=== PATIENT | female | born 1945 | race Caucasian/White ===

== ENCOUNTER 2018-04-16 07:18 | Emergency (ER) | payer MEDICARE, OTHER, SELFPAY ==
[2018-04-16 07:19] VITALS: BP 170/90; PULSE 75; RESP 13; TEMP 36.7; O2SAT 98; BMI 28.0
--- NOTE | 2018-04-16 07:29 | EKG12_ITS ---
Test Reason : CP REPEAT Blood Pressure : / mmHG Vent. Rate : 062 BPM Atrial Rate : 062 BPM P-R Int : 134 ms QRS Dur : 096 ms QT Int : 428 ms P-R-T Axes : 023 021 040 degrees QTc Int : 434 ms Normal sinus rhythm Nonspecific T wave abnormality Abnormal ECG Confirmed by SATISH HOLMAN, BLAKE ([id number]), telegraph editor KISHOR MCCANN ([id number]) on 04/21/2018 5:03:29 PM Referred By: PRIYANKA Confirmed By:BLAKE COVARRUBIAS MD
--- NOTE | 2018-04-16 07:50 | RAD_ITS ---
STUDY: X-RAY CHEST REASON FOR EXAM: Female, 72 years old. Chest pain and pressure TECHNIQUE: Single AP portable view of the chest. COMPARISON: None. FINDINGS: C-spine hardware is noted The lungs are clear and expanded. There is no demonstrated pleural abnormality. Normal size heart. Normal mediastinum and samia. Normal visualized pulmonary arteries. Normal visualized aortic arch and descending thoracic aorta. Normal visualized thoracic spine. Normal visualized ribs, clavicles, and shoulders. There is no demonstrated abnormality of the visualized soft tissue structures of the upper abdomen. RAD/Chest 1 View (Portable) IMPRESSION: Normal x-ray examination of the chest. Electronically Signed: Michael Rogel DO at 8:09 EST Tel , Service support ,
[2018-04-16 07:51] VITALS: BP 147/60; PULSE 69; RESP 18; O2SAT 100
[2018-04-16 08:01] LABS: Absolute Lymphocyte Count 2.44 X10^3/ul (0.83-4.51); Absolute Neutrophil Count 3.2 X10^3/uL (2.0-7.7); Basophil# 0.08 X10^3/uL; Basophil% 1.2 % (0-1); Eosinophil# 0.17 X10^3/uL; Eosinophils% 2.6 % (0-5); Hematocrit 38.2 % (37-47); Hemoglobin 12.2 g/dl (12.0-15.0); Lymphocyte # 2.44 X10^3/ul (4.0); Lymphocyte % 37.3 % (19-41); Mean Corp Hgb Conc 31.9 g/gl (32-36); Mean Corpuscular Hgb 28.8 pg (27.0-32.0); Mean Corpuscular Volume 90.3 fL (81-99); Monocyte# 0.61 X10^3/uL; Monocyte% 9.3 % (0-10); Neutrophil # 3.24 X10^3/uL (2.7-7.7); Neutrophil % 49.4 % (47-70); Platelet Count 318 K/mm3 (150-450); RBC Distribution Width CV 13.8 % (11.6-14.6); RBC Distribution Width SD 44.9 fl (35.1-43.9); Red Blood Count 4.23 M/mm3 (4.2-5.4); White Blood Count 6.6 K/mm3 (4.4-11.0)
[2018-04-16 08:03] LABS: POSITIVE COUNT NO; POSITIVE DIFFERENTIAL NO; POSITIVE MORPHOLOGY NO
[2018-04-16 08:12] LABS: Anion Gap 9 (5-15); BUN 17 mg/dL (7-18); BUN/Creat Ratio 17.5 RATIO (10-20); Calcium,Total 8.7 mg/dL (8.5-10.1); Chloride 108 mmol/L (98-107); Creatinine, Serum 0.97 mg/dL (0.55-1.02); EST Glomerular Filtration Rate 60 mL/min (>60); Est Glom Filt Rate - Afr Amer 73 mL/min (>60); Estimated Creatinine Clearance 50.98 ml/min; Glucose 81 mg/dL (74-106); Sodium Level 142 mmol/L (136-145)
--- NOTE | 2018-04-16 08:39 | ED.VISSUMM ---
- ER Visit Summary Date of Service: 04/16/18 Chief Complaint: Chest pain History of Present Illness: The patient is a 72 F who is arriving by EMS. Patient states that she got up this morning was making coffee and went to sit down in her chair. When she sat down she developed a sharp stabbing pain just underneath her left armpit radiating posteriorly into her back. She describes it as sharp and stabbing. She states it lasted a minute and her states that it lasted several minutes. states that she was very pale and she felt nauseous. He was concerned she may pass out and called the ambulance. Patient states she has never had this discomfort before. The patient denies any known cardiac history. She had a stress test in 2012 that was negative. Patient has a history of GERD restless leg and hypothyroidism. She has not had any recent surgeries. No recent immobilization or long trips. She denies any known cancer or hormonal supplementation. The patient states that she is asymptomatic at the time of exam. Patient received 324 mg of aspirin by EMS. Physical Examination: Afebrile vital signs are stable Gen: Well-nourished well-developed Head: Normocephalic atraumatic Eyes: Perrl EOMI ENT: TMs clear no rhinorrhea moist mucous membranes Neck: Supple no lymphadenopathy no JVD nontender CVS: Regular rate rhythm no murmurs normal S1-S2 Respiratory: No distress clear to auscultation bilaterally chest nontender Abdomen: Soft nontender nondistended normal bowel sounds no masses Back: Nontender Extremity: Nontender no edema Skin: Normal color no rash Neuro: alert orientated ?3 CN II-XII intact normal strength sensation reflexes gait cerebellar Psych: Normal affect normal mood Test Results: Prehospital EKG shows a sinus rhythm and this is compared to initial EKG in the emergency department shows a normal sinus rhythm at a rate of 74 with no ectopy. Initial troponin is negative. Delta troponin negative. D-dimer within the normal limits. Chest x-ray shows no acute findings. Emergency Department Course and Treatment: Repeat examination the patient states the pain has returned and is still sharp and stabbing. It is not worse with deep breath. She is unsure if it is worse with movement. Patient received a dose of Toradol. Delta troponin was negative. Patient's been resting more comfortably. Patient will be discharged home. Return if worsening or concerns. Impression: 1. Chest pain Date of Service: 04/16/18 This note was generated with [employer] dictation software. It may contain incorrect words, spelling, and punctuation that were not noted in review of the chart prior to signing ED Disposition - Plan for ED Patient: Disposition: Home or Assisted Living Instructions: ED Chest Pain NonCardiac Referrals: Carlos Maxwell MD [Primary Care Provider] - 3-5 Days if not improving
[2018-04-16] MEDS: Ketorolac 30 MG/ML Syringe IV (08:47)
[2018-04-16 08:59] VITALS: BP 148/63; PULSE 67; RESP 17; O2SAT 96
[2018-04-16 09:39] LABS: D-Dimer Quantitative (DVT/PE) 0.35 FEU/ug/m (0.27-0.49)
--- NOTE | 2018-04-16 10:30 | EKG12_ITS ---
Test Reason : CP Blood Pressure : / mmHG Vent. Rate : 074 BPM Atrial Rate : 074 BPM P-R Int : 168 ms QRS Dur : 094 ms QT Int : 390 ms P-R-T Axes : 058 019 035 degrees QTc Int : 432 ms Normal sinus rhythm Normal ECG Confirmed by BLAKE COVARRUBIAS MD ([id number]), primer expeditor and drier KISHOR MCCANN ([id number]) on 04/21/2018 5:03:44 PM Referred By: Confirmed By:BLAKE COVARRUBIAS MD
[2018-04-16 11:03] VITALS: BP 135/77; PULSE 63; RESP 17; O2SAT 95
[2018-04-16 11:47] VITALS: BP 122/67; PULSE 68; RESP 16; O2SAT 98
== END 2018-04-16 11:48 | disposition home or self-care (01) ==
PROVIDERS: Emergency Provider Emergency Medicine; Family Provider Family Medicine; PCP Family Medicine
DX: R07.9 Chest pain, unspecified (principal); R11.0 Nausea; E03.9 Hypothyroidism, unspecified; G25.81 Restless legs syndrome; K21.9 Gastro-esophageal reflux disease without esophagitis; Z79.899 Other long term (current) drug therapy
CPT/HCPCS: 36415; 71045; 80048; 84484; 85025; 85379; 93005; 96374; 99285; A4216

== ENCOUNTER → 2020-03-04 14:56 | Outpatient (CLI) | payer MEDICARE, OTHER, SELFPAY ==
--- NOTE | 2020-03-04 15:02 | VDLE_ITS ---
Reason For Study: Pain Procedure LEFT This is a venous duplex using B-mode, color GSV is normal. flow and spectral Doppler. CFV is compressible, spontaneous, phasic, Exam performed in department. competent, and demonstrates normal A preliminary report was called and/or faxed augmentation. to [facility]. FV is compressible, spontaneous, phasic, competent and demonstrates normal augmentation. POP V is compressible, spontaneous, phasic, competent and demonstrates normal augmentation. T/P Trunk is compressible. PTV is compressible. LT PerV is compressible. Interpretation Summary Deep veins of the left lower extremity are patent and compressible segmentally. There is no evidence of left lower extremity deep vein thrombosis. Valvular competence appears intact within the proximal deep venous system on the left . The left great saphenous vein appears patent and compressible segmentally. Ordering Physician: Urban Kruger Referring Physician: MD Hans Carlos Performed By: Saba Hart RVT
== END ==
PROVIDERS: PCP Family Medicine; Referring Provider Nurse Practitioner Family; Visit Provider Nurse Practitioner Family
DX: M79.605 Pain in left leg (principal)
CPT/HCPCS: 93971

== ENCOUNTER → 2020-03-30 08:58 | Outpatient (CLI) | payer MEDICARE, OTHER, SELFPAY ==
--- NOTE | 2020-03-30 09:15 | RAD_ITS ---
STUDY: AIR CONTRAST UPPER GI SERIES REASON FOR EXAM: Female, 74 years old. COUGH, GERD- FOR YEARS -- 40 FLUORO SEC, 22.85mGy, 21 FLUORO IMAGES FLUOROSCOPY TIME (if supplied): (0:40) minutes/seconds TECHNIQUE: SINGLE CONTRAST AND AIR CONTRAST FLUOROSCOPIC IMAGES. COMPARISON: None. FINDINGS: There is evidence of anterior fusion at the C6-C7 level. The cervical esophagus demonstrates normal motility without aspiration. There is no stricture or extrinsic mass effect. No intraluminal polypoid mass is identified. The thoracic esophagus distends well without stricture or mucosal fold thickening. No mucosal ulcerations are identified. There is no extrinsic mass effect. There are no diverticula. There is evidence of a small sliding hiatal hernia with gastroesophageal reflux. The stomach distends well without mucosal fold thickening or mucosal ulceration. There is no intraluminal mass. The duodenal bulb is freely distensible without deformity or ulceration. The duodenal sweep is normal in position and caliber. RAD/Upper GI w/BA Swallow IMPRESSION: There is a small sliding hiatal hernia with gastroesophageal reflux. Electronically Signed: Wesley Lloyd MD at 12:45 EST , Service support ,
== END ==
PROVIDERS: PCP Family Medicine; Referring Provider Internal Medicine Pulmonary Disease; Visit Provider Internal Medicine Pulmonary Disease
DX: R05 Cough (principal); K21.9 Gastro-esophageal reflux disease without esophagitis
CPT/HCPCS: 74246

== ENCOUNTER → 2020-08-23 17:11 | Outpatient (CLI) | payer MEDICARE, OTHER, SELFPAY ==
--- NOTE | 2020-08-23 17:00 | PET_ITS ---
EXAMINATION: FDG PET-CT INDICATIONS: A 74-year-old female with a history of chronic lymphocytic leukemia presenting for restaging examination. COMPARISON EXAMINATION: CT of the chest, abdomen, and pelvis reports dated 08/02/20. INDEX LESION SIZE SUV LUGANO SCORE INTERPRETATION Bilateral axilla 1.4 max 2 Quantitative criteria for viable neoplasm are not fulfilled. TECHNIQUE: Following the intravenous administration of 13.80 mCi of F-18 deoxyglucose via the left wrist, multiplanar image acquisitions of the head, neck, chest, abdomen and pelvis to level of mid-thigh, lower extremities obtained at one hour post radiopharmaceutical administration contemporaneously interpreted with the current CT of the head, neck, chest, abdomen and pelvis to level of mid-thigh, lower extremities dated 08/23/[address] of the chest, abdomen, and pelvis reports dated 08/02/20 reveal: SERUM GLUCOSE LEVEL: 87 mg/dl. HEIGHT: 68 inches. WEIGHT: 159 lbs. FINDINGS: 1. Increased FDG distribution is defined in the bilateral axilla and retropectoral lymph node distributions generating a calculated maximum standard uptake value of 1.4. The [place] Deauville score is 2. The majority of the corresponding soft tissue densities demonstrate components of fatty hilus. 2. Normal physiologic distribution of the radiopharmaceutical is apparent in the hepatic (3.4) and splenic parenchyma, both renal units, bladder and visualized intestinal tract. The visualized portion of the cerebral cortex demonstrate symmetric and preserved glucose metabolism. Diffuse intestinal tract activity is noted throughout all four quadrants of the abdominal-pelvic retroperitoneum and mesentery consistent with normal physiologic distribution of the radiopharmaceutical. Facilitated radiopharmaceutical concentration is visualized in the pharyngeal mucosal space right and left of midline which appears associated with the pharyngeal constrictor musculature most consistent with physiologic tracer uptake. Pertinent CT findings are as follows. CHEST: There is atherosclerotic calcification defined in the thoracic aorta without evidence of dilatation-aneurysm formation. Bilateral axillary and retropectoral lymph nodes demonstrate mild nonquantitative significant increased FDG uptake previously described. There are no parenchymal densities-nodules demonstrated in the right and left hemithorax with discernable increased tracer uptake. ABDOMEN AND PELVIS: Atherosclerotic calcification is defined in the abdominal aorta without evidence of dilatation, aneurysm formation. Pelvic arterial calcification is observed. Colonic diverticulosis is encountered without evidence of diverticulitis. Right and left inguinal soft tissue densities demonstrate no evidence of definable enhanced FDG uptake. A uterine pessary device is defined. SKELETAL: Orthopedic hardware placement is noted in the left lower lumbar spine-upper sacrum and lower cervical spine commensurate with spinal fusion operative intervention. PET/PET/CT Tumor Base -Thigh Init IMPRESSION: 1. NEGATIVE EXAMINATION. There is no definitive degree of quantitative scintigraphic evidence of viable neoplasm. 2. Enhanced tracer uptake manifest in the right and left axillary regions do not fulfill quantitative criteria for viable neoplasm. (Aubrie et al, Journal of Clinical Oncology 32:3059, 2014). Electronic Signature Tomy Castillo D.O. Accurate Quantification of SUVs for this report are calculated using the exclusive [employer] Technology. ([place].S. Patent No. [id number] [id number]). Standardization and correction of the FDG SUV metric via ACCUQUAN technology allow for vendor non-specific objective quantitative examination comparison and optimization of the sensitivity and specificity of the FDG PET-CT examination. Electronically Signed: Tomy Castillo DO at 22:29 EDT Tel , Service support ,
== END ==
PROVIDERS: PCP Nurse Practitioner Family; Referring Provider Internal Medicine Hematology & Oncology; Visit Provider Internal Medicine Hematology & Oncology
DX: C91.90 Lymphoid leukemia, unspecified not having achieved remission (principal)
CPT/HCPCS: 78815; A9552

== ENCOUNTER 2021-05-16 12:31 | Emergency (ER) | payer MEDICARE, OTHER, SELFPAY ==
[2021-05-16 12:32] VITALS: BP 207/67; PULSE 58; RESP 16; TEMP 36.6; O2SAT 97; BMI 34.0
--- NOTE | 2021-05-16 12:44 | CT_ITS ---
STUDY: CTA CHEST REASON FOR EXAM: Female, 75 years old. Dyspnea, PE. CLL TREATMENT CURRENTLY RADIATION DOSAGE (If Supplied By Facility): CTDIvol = ( 16.14 ) mGy, DLP = ( 476.35 ) mGycm TECHNIQUE: The examination was performed with the intravenous administration of IV 100mL Isovue-370. Post-processing of the angiographic images was performed, with multiplanar reformation and 3D reconstruction. Individualized dose optimization techniques were used for this CT. COMPARISON: Comparison is made with prior study dated 03/07/2012. FINDINGS: Small bilateral axillary lymph nodes. Normal enhancement of the main pulmonary artery and right and left pulmonary arteries. Normal enhancement of the bilateral peripheral pulmonary arteries. There is no demonstrated pulmonary embolism. There is atherosclerotic calcification of the aortic arch with tortuosity. There is no demonstrated aortic dissection. Normal heart and pericardium. Stable 3.1 cm x 3.2 cm rounded fluid collection in the right cardio phrenic angle. This most likely represents a right pericardial cyst. Normal mediastinum. Normal hilar regions. Normal visualized trachea and bronchi. The lungs are well expanded. Normal pulmonary parenchyma. Normal pleura. Normal chest wall structures. There are degenerative changes of thoracic spine. Small sliding title hernia. CT/CTA Chest W/WO Contrast IMPRESSION: No evidence of pulmonary embolism. Stable right pericardial cyst. Electronically Signed: Wesley Lloyd MD at 14:35 EDT ,
--- NOTE | 2021-05-16 12:45 | EKG12_ITS ---
Test Reason : SOB Blood Pressure : / mmHG Vent. Rate : 051 BPM Atrial Rate : 051 BPM P-R Int : 204 ms QRS Dur : 100 ms QT Int : 454 ms P-R-T Axes : 054 023 051 degrees QTc Int : 418 ms Sinus bradycardia Otherwise normal ECG Confirmed by LILIAN HOLMAN, KURTIS ([id number]), writer editor KERRY MARIN ([id number]) on 05/18/2021 9:57:21 AM Referred By: RU Confirmed By:KURTIS QUINTANA MD
--- NOTE | 2021-05-16 12:47 | EDS_ITS ---
HPI History of Present Illness Chief Complaint: Shortness of Breath Detail of Chief Complaint: Shortness of breath for about 2 months Informant: patient Narrative Narrative: Patient presents to the emergency department with complaint of dysp farshad for about 2 months. I received a call from her oncologist office stating they are concerned about possibility of pulmonary embolism. Patient denies any chest pain. She does describe some exertional dyspnea. She has no history of PE or DVT. Patient currently being treated for CLL with daily oral chemo Imbruvica. Patient denies fever. She does have a cough but mostly at night. Cough is nonproductive. She denies hemoptysis. [facility] Medical History (Updated 05/16/21 @ 14:[address] Lori Rae, DO) Cancer Depression Former smoker GERD (gastroesophageal reflux disease) Hypertension Hypothyroidism Home Medications Pesary 1 ea TOPICAL PRN PRN 01/09/17 [History Last Taken Unknown] levothyroxine 112 mcg PO DAILY 01/09/17 [History Last Taken 01/21/17 08:00 1] losartan 100 mg PO DAILY 01/09/17 [History Last Taken 01/21/17 08:00 1] pantoprazole 40 mg PO BID 01/09/17 [History Last Taken 01/21/17 08:00 1] acetaminophen 1,000 mg PO Q8 PRN 04/16/18 [History Last Taken Unknown] amlodipine 5 mg PO DAILY 04/16/18 [History Last Taken Unknown] Allergy/AdvReac Type Severity Reaction Status Date / Time amoxicillin Allergy Rash Verified 05/16/21 12:33 Penicillins [PCN] Allergy Rash Verified 05/16/21 12:33 Sulfa (Sulfonamide Allergy Rash Verified 05/16/21 12:33 Antibiotics) tramadol [From Ultram] Allergy Other Verified 05/16/21 13:20 BANDAIDS AdvReac Rash Uncoded 05/16/21 12:33 Surgical History (Updated 05/16/21 @ 13:17 by Mandi Car) H/O: hysterectomy History of total replacement of both hip joints Previous back surgery Social History Smoking Status: Former smoker ROS ROS ED Constitutional Constitutional ED: Reports systems reviewed and no addt'l complaints, except as documented; Denies body ache(s), change in weight or chills Eyes Eyes: Denies acute decrease in peripheral vision, change in vision, double vision or loss of vision ENT ENT ED: Reports none; Denies ear pain, lip swelling, loss taste/smell, neck pain, otalgia or sore throat Cardiovascular Cardiovascular: Reports none; Denies abdominal pain, chest pain with activity, leg edema, lightheadedness, palpitations, rapid heart rate or syncope Respiratory/Chest Respiratory/Chest: Reports none, cough and dyspnea; Denies change in mental status, dry cough, hemoptysis, shortness of breath at rest or shortness of breath with exertion Gastrointestinal Gastrointestinal: Reports none; Denies abdominal pain, change in stool character, diarrhea, hematemesis, hematochezia, melena, rectal bleeding or vomiting Genitourinary Genitourinary ED: Reports none; Denies abdominal discomfort, anuria, dysuria, genital pain or polyuria Musculoskeletal Musculoskeletal: Reports none; Denies arthralgias, back pain, difficulty walking, extremity pain, muscle weakness or myalgias Integumentary Reports none; Denies abscess or rash Neurologic Neurologic: Reports none; Denies abnormal gait, confusion, focal weakness, frequent falls, headache(s), loss of vision, numbness, paresthesias, radicular pain, vertigo or weakness Psychiatric Psychiatric: Reports systems reviewed and no addt'l complaints, except as documented and none; Denies behavioral changes, confusion, difficulty concentrating, hallucinations, suicidal ideation, tactile hallucinations or visual hallucinations Endocrine Endocrinology: Denies none, cold intolerance, excessive sweating, fatigue or heat intolerance Hematologic/Lymphatic Hematologic/Lymphatic: Reports none; Denies anemia, easy bleeding or easy bruising Allergic/Immunologic Allergic/Immunologic ED: Denies as per HPI, none, lip swelling, mouth swelling, throat swelling, tongue swelling or hives EXAM Physical Exam Const Vital Signs: 05/16/21 12:32 05/16/21 13:19 05/16/21 13:23 Temperature 97.8 F Temperature Source Temporal Pulse Rate 58 L 49 L Respiratory Rate 16 96 H Respiratory Effort Normal Non-Labored Respiratory Depth Normal Respiratory Pattern Normal Blood Pressure 207/67 H 188/69 H Blood Pressure Mean 113 108 Pulse Ox 97 12 Oxygen Delivery Method Room Air Room Air Room Air Positive well nourished and well developed General Appearance ED: well developed and NAD HEENT Reports TM's clear and moist mucous membranes normocephalic and atraumatic; Negative for trauma or tenderness Tympanic Membrane ED: Yes TM's clear Eyes PERRL and EOMs intact bilaterally General Eye ED: Negative for pale conjunctiva or scleral icterus Neck no lymphadenopathy, supple and no JVD General: Negative for tenderness Chest Wall inspection of chest normal and palpation of chest normal Chest: Negative for tenderness Resp normal respiratory effort and clear to auscultation bilaterally Effort and Inspection: Negative for respiratory distress or pain with movement Auscultation: Negative for rhonchi, wheezes or diminished lung sounds Cardio regular rate, regular rhythm, S1 normal heart sound, S2 normal heart sound and no murmurs Peripheral Pulses: pulses 2+ throughout GI normal to inspection, nondistended, normoactive bowel sounds, soft to palpation, non-tender, non-distended and no masses Back/Spine no CVA tenderness and no thoracic nor lumbar tenderness Extremity normal to inspection General Extremety ED: Negative for edema General Extremity: Negative for edema Neuro oriented x3, CN's II-XII intact bilaterally, no sensory deficits noted and gait normal Sensorium / Orientation: awake, alert, oriented to person, oriented to place and oriented to time Motor Exam: strength 5/5 throughout and strength abnormal Psych mental status grossly normal Skin no rashes or lesions noted and no wounds MDM MDM MDM Narrative Medical decision making narrative: IV line established on arrival. Lab work-up was unremarkable. CTA chest was negative for PE. Etiology of her dyspnea is unclear. Patient has not had any medication changes. Her bradycardia is not new and she tells me it has been like that for years. I do not feel her bradycardia is responsible for her dyspnea. Patient advised to follow-up with her primary care physician within next 3 to 5 days. She is to return if increasing shortness of breath, chest pain, or if condition should worsen anyway. Lab Data Attestation: I reviewed the patient's lab results. Labs: Laboratory Results - last 24 hr 05/16/21 05/16/21 05/16/21 13:04 13:04 13:04 WBC RBC Hgb Hct MCV MCH MCHC RDW Std Deviation RDW Coeff of Vazquez Plt Count MPV Immature Gran % (Auto) Neut % (Auto) Lymph % (Auto) [place] % (Auto) Eos % (Auto) Baso % (Auto) Absolute Neuts (auto) Absolute Lymphs (auto) Nucleated RBC % Sodium Cancelled Potassium Cancelled Chloride Cancelled Carbon Dioxide Cancelled Anion Gap Cancelled BUN Cancelled Creatinine Cancelled Estim Creat Clear Calc Cancelled Est GFR (MDRD) Af Amer Cancelled Est GFR (MDRD) Non-Af Cancelled BUN/Creatinine Ratio Cancelled Glucose Cancelled Calcium Cancelled Troponin I High Sens Cancelled B-Natriuretic Peptide 54.2 05/16/21 05/16/21 13:22 13:36 WBC 7.6 RBC 2.99 L Hgb 9.6 L Hct 28.8 L MCV 96.3 MCH 32.1 H MCHC 33.3 RDW Std Deviation 50.3 H RDW Coeff of Vazquez 14.4 Plt Count 255 MPV 11.0 Immature Gran % (Auto) 0.900 Neut % (Auto) 58.1 Lymph % (Auto) 24.8 [place] % (Auto) 13.3 H Eos % (Auto) 1.6 Baso % (Auto) 1.3 H Absolute Neuts (auto) 4.4 Absolute Lymphs (auto) 1.88 Nucleated RBC % 0 Sodium 140 Potassium 4.2 Chloride 110 H Carbon Dioxide 27.0 Anion Gap 3 L BUN 14 Creatinine 0.99 Estim Creat Clear Calc 35.27 Est GFR (MDRD) Af Amer 71 Est GFR (MDRD) Non-Af 58 L BUN/Creatinine Ratio 14.2 Glucose 72 L Calcium 7.8 L Troponin I High Sens 5 B-Natriuretic Peptide Radiography Diagnostic Testing: Clinical Impression(s) from Imaging Studies Chest CTA 05/16/21 12:44 IMPRESSION: No evidence of pulmonary embolism. Stable right pericardial cyst. Electronically Signed: Wesley Lloyd MD at 14:35 EDT , EKG Initial EKG: Attestation: I personally reviewed and interpreted this EKG as follows: Comments: Sinus rhythm with a ventricular rate of 51 bpm with no acute ST segment changes Discharge Plan Triage Chief Complaint: Shortness of Breath ED Provider: Lori Rae Dx/Rx/DC Orders Clinical Impression: Acute dyspnea Instructions: ED Dyspnea Prescriptions: No Action losartan 50 MG tablet 100 mg PO DAILY RF: 0 levothyroxine 100 MCG tablet 112 mcg PO DAILY RF: 0 pantoprazole 40 MG tablet 40 mg PO BID RF: 0 Pesary 1 ea topical PRN PRN (Reason: PER PATIENT) RF: 0 amlodipine 5 MG tablet 5 mg PO DAILY RF: 0 acetaminophen 500 MG tablet 1,000 mg PO Q8 PRN (Reason: Pain) RF: 0 Primary Care Provider: Urban Kruger NP Referrals: Alejo Salas DO [STAFF PHYSICIAN] - 3-5 Days Urban Kruger NP, QUANTITY SURVEYOR-C [Primary Care Provider] - Disposition Disposition: Home, Self Care
[2021-05-16] MEDS: 0.9% Normal Saline 1,000 ML 150 ML IV (13:11)
[2021-05-16 13:19] VITALS: BP 188/69; PULSE 49; RESP 96; O2SAT 12
[2021-05-16 13:23] VITALS: O2SAT 96
[2021-05-16 13:30] LABS: BNP,B-Type NATRIURETIC PEPTIDE 54.2 pg/mL (0-100)
[2021-05-16 13:38] LABS: Absolute Lymphocyte Count 1.88 X10^3/uL (0.83-4.51); Absolute Neutrophil Count 4.4 X10^3/uL (2.0-7.7); Basophil% 1.3 % (0-1); Eosinophil# 0.12 X10^3/uL; Eosinophils% 1.6 % (0-5); Hematocrit 28.8 % (37-47); Hemoglobin 9.6 g/dL (12.0-15.0); Lymphocyte # 1.88 X10^3/ul (0.83-4.51); Lymphocyte % 24.8 % (19-41); Mean Corp Hgb Conc 33.3 g/dL (32-36); Mean Corpuscular Hgb 32.1 pg (27.0-32.0); Mean Corpuscular Volume 96.3 fL (81-99); Monocyte# 1.01 X10^3/uL; Monocyte% 13.3 % (0-10); NRBC Flagged by Analyzer 0 % (0-5); Neutrophil % 58.1 % (47-70); Platelet Count 255 K/mm3 (150-450); RBC Distribution Width CV 14.4 % (11.6-14.6); RBC Distribution Width SD 50.3 fl (35.1-43.9); Red Blood Count 2.99 M/mm3 (4.2-5.4); White Blood Count 7.6 K/mm3 (4.4-11.0)
[2021-05-16 14:05] LABS: Anion Gap 3 (5-15); BUN 14 mg/dL (7-18); BUN/Creat Ratio 14.2 RATIO (10-20); Calcium,Total 7.8 mg/dL (8.5-10.1); Chloride 110 mmol/L (98-107); Creatinine, Serum 0.99 mg/dL (0.55-1.02); EST Glomerular Filtration Rate 58 mL/min (>60); Est Glom Filt Rate - Afr Amer 71 mL/min (>60); Estimated Creatinine Clearance 35.27 ml/min; Glucose 72 mg/dL (74-106); Potassium 4.2 mmol/L (3.5-5.1); Sodium Level 140 mmol/L (136-145); Troponin-I HS 5 pg/mL (3.0-54.0)
[2021-05-16 14:54] VITALS: PULSE 53; RESP 16; O2SAT 99
--- NOTE | 2021-05-17 12:43 | CM.ED ---
ER RNAMINATA DC F/u Call: ED visit 05.16.21 for SOB- sent by Onc provider(Tx for CLL on oral Chemo) Called listed home number on demographics, patient answered and this functional tester typewriters introduced self and role. Patient states that she is doing okay. Has a f/u appointment with her doctor in one month. Does not have a pulse ox at home and discussed places can obtain one if she wants to check oxygenation levels if feeling SOB. Also discussed returning to hospital for any worsening of SOB. No further issues or concerns voiced at this time. Rupal Ledesma RNCM
== END 2021-05-16 14:54 | disposition home or self-care (01) ==
PROVIDERS: Emergency Provider Emergency Medicine; PCP Nurse Practitioner Family; Visit Provider Emergency Medicine
DX: R06.00 Dyspnea, unspecified (principal); C91.10 Chronic lymphocytic leukemia of B-cell type not having achieved remission; R00.1 Bradycardia, unspecified; I10 Essential (primary) hypertension; E03.9 Hypothyroidism, unspecified; K21.9 Gastro-esophageal reflux disease without esophagitis; Z79.890 Hormone replacement therapy; Z79.899 Other long term (current) drug therapy; Z87.891 Personal history of nicotine dependence; Z96.643 Presence of artificial hip joint, bilateral
CPT/HCPCS: 71275; 80048; 83880; 84484; 85025; 93005; 96360; 96361; 99283; J7030; Q9967; A4216

== ENCOUNTER → 2021-07-05 | Outpatient (CLI) | payer MEDICARE, OTHER, SELFPAY ==
[2021-07-05 17:14] LABS: Thyroid Stim Hormone (TSH) 2.93 uIU/mL (0.358-3.74)
== END | disposition home or self-care (01) ==
LOC: LAB 15:59
PROVIDERS: PCP Nurse Practitioner Family; Visit Provider Internal Medicine Cardiovascular Disease
DX: E03.9 Hypothyroidism, unspecified (principal)
CPT/HCPCS: 36415; 84443

== ENCOUNTER → 2021-07-14 | Outpatient (CLI) | payer MEDICARE, OTHER, SELFPAY | END | disposition home or self-care (01) | LOC: PSN 09:28 | PROVIDERS: PCP Nurse Practitioner Family; Visit Provider Internal Medicine Cardiovascular Disease | DX: R00.1 Bradycardia, unspecified (principal); I10 Essential (primary) hypertension | CPT/HCPCS: 93225; 93226 ==

== ENCOUNTER → 2021-07-25 | Outpatient (CLI) | payer MEDICARE, OTHER, SELFPAY ==
--- NOTE | 2021-07-25 13:58 | ECHOD_ITS ---
Reason For Study: ARRYTHMIA Procedure This was a 2D Doppler, Color Flow transthoracic echocardiogram. Myocardial strain analysis was performed in this exam to aid in the assessment of cardiac function. Exam performed in department. Left Ventricle Normal LV size. Left ventricular systolic function is normal. The estimated ejection fraction is 60 %. Stage 1 diastolic dysfunction. No regional wall motion abnormalities noted. Right Ventricle Normal RV size. Normal systolic function. Atria Normal left atrium. Normal right atrium. Mitral Valve Normal mitral valve. Tricuspid Valve Normal tricuspid valve. Mild to moderate (1-2+) tricuspid valve insufficiency. Pulmonary artery systolic pressure is 30 mmHg. Aortic Valve Trisinus/trileaflet aortic valve. Mild focal aortic valve calcification. Mild (1+) eccentric aortic valve insufficiency. Pulmonic Valve Normal pulmonic valve. Great Vessels Normal aortic root. The pulmonary artery is normal size. Normal inferior vena cava. Pericardium/Pleural No pericardial effusion. Medication 22 gauge I.V. with prn adaptor inserted into left arm. Performed a rapid injection of agitated mix of 9 cc saline and 1cc air to assess for atrial septal defect. MMode/2D Measurements & Calculations LVIDd: 4.3 cm IVSd: 0.88 cm Ao root diam: 2.4 cm LVIDs: 2.5 cm LVPWd: 1.1 cm RVDd: 2.4 cm FS: 42.6 % LAV(MOD-bp): 70.4 ml LVAd ap4: 25.9 cm2 SV(MOD-sp4): 45.5 ml LAV(MOD-bp) Indexed: 39.9 ml/m2 LVLd ap4: 7.4 cm LAV(MOD-sp2): 70.3 ml EDV(MOD-sp4): 72.7 ml LAV(MOD-sp4): 63.0 ml EDV(sp4-el): 76.7 ml LVAs ap4: 13.8 cm2 LVLs ap4: 6.2 cm ESV(MOD-sp4): 27.1 ml ESV(sp4-el): 26.1 ml EF(MOD-sp4): 62.7 % EF(sp4-el): 66.0 % SV(sp4-el): 50.6 ml LA A4 area: 21.8 cm2 LA dimension(2D): 3.9 cm RA A4 area: 15.8 cm2 Doppler Measurements & Calculations MV E max ricardo: 101.4 cm/sec Lat Peak E' Ricardo: 9.6 cm/sec Med Peak E' Ricardo: 6.7 cm/sec MV A max ricardo: 122.9 cm/sec E/E' lat: 10.6 E/E' med: 15.1 MV E/A: 0.82 Ao V2 max: 221.7 cm/sec AI max rciardo: 380.0 cm/sec LV V1 max: 146.1 cm/sec Ao max P.7 mmHg AI max P.8 mmHg LV V1 max P.5 mmHg AI dec slope: 198.0 cm/sec2 AI P1/2t: 562.0 msec MR max ricardo: 563.0 cm/sec PA V2 max: 139.6 cm/sec TR max ricardo: 258.6 cm/sec MR max P.8 mmHg TR max P.8 mmHg MR mean ricardo: 445.3 cm/sec MR mean P.9 mmHg MR VTI: 202.6 cm ECHO/Echo Complete Interpretation Summary Normal LV size. Left ventricular systolic function is normal. The estimated ejection fraction is 60 %. Stage 1 diastolic dysfunction. Mild (1+) eccentric aortic valve insufficiency. Pulmonary artery systolic pressure is 30 mmHg. The global longitudinal strain is normal. The global longitudinal strain = -20. 5 % (normal). Ordering Physician: Tejas Tolliver Performed By: Kasey Echeverria RCS
== END | disposition home or self-care (01) ==
LOC: CVS 13:58
PROVIDERS: PCP Nurse Practitioner Family; Visit Provider Internal Medicine Cardiovascular Disease
DX: R00.1 Bradycardia, unspecified (principal); R00.8 Other abnormalities of heart beat
CPT/HCPCS: 93306

== ENCOUNTER 2021-08-31 15:03 | Observation (INO) | payer MEDICARE, OTHER, SELFPAY ==
[2021-08-31] VITALS (8 sets, daily range): BP systolic 133–154; BP diastolic 46–74; PULSE 58–66; RESP 16–18; TEMP 36.6–36.9; O2SAT 95–98; BMI 35.5; BMI 32.8
--- NOTE | 2021-08-31 15:20 | EKG12_ITS ---
Test Reason : Blood Pressure : / mmHG Vent. Rate : 062 BPM Atrial Rate : 062 BPM P-R Int : 140 ms QRS Dur : 090 ms QT Int : 414 ms P-R-T Axes : 027 018 062 degrees QTc Int : 420 ms Normal sinus rhythm Normal ECG Confirmed by LILIAN HOLMAN, KURTIS ([id number]), medical transcription editor KERRY MARIN ([id number]) on 09/02/2021 9:19:01 AM Referred By: Confirmed By:KURTIS QUINTANA MD
--- NOTE | 2021-08-31 15:21 | EDS_ITS ---
HPI History of Present Illness Chief Complaint: Chest Pain Detail of Chief Complaint: Chest pain x2 Informant: patient, family and EMS Onset/Context/Timing Onset: Today and Hours Activity at onset: sudden and rest Timing: Intermittent (First episode lasted 5 minutes second episode estimate of 15) Quality: Positive for Pressure and Sharp Location: Substernal Current Severity: Gone Maximum Severity: Moderate Worsened By: - (Patient was on the phone when the first episode occurred and at rest second) Relieved By: NTG (Second episode was alleviated after second nitro) Associated Symptoms: Positive for Dyspnea and - (First episode radiated to the jaw on the right side); Negative for Nausea, Vomiting, Diaphoresis, Cough, Fever, Lightheadedness, Acid Reflux or Palpitations Narrative Narrative: Patient is a 75-year-old woman who was referred to Dr. Tolliver for shortness of breath and family states she had a negative work-up. They are uncertain whether she had a stress test or not. Patient had an episode of sharp pressure-like sensation mid chest while talking to a friend. That episode lasted 5 minutes. 15 minutes later she had another episode of pressure-like discomfort substernal. The first episode was associated with shortness of breath and diaphoresis as well as radiation to the jaw. The second episode was not associated with radiation. Squad was called after second episode. She received 4 baby aspirin in route. She states she had relief after the second nitroglycerin tablet. She presently is pain-free. She denies recent dyspnea or dyspnea on exertion. She denies orthopnea or PND. She does have history of hiatal hernia. She denies black or maroon-colored stool. She denies history of VTE. She denies leg pain, swelling or discoloration presently. She states this morning she had cramping in her anterior left thigh. She does endorse chronic congestion due to allergies. Prior Similar Symptoms: No Recent Illness/Hospitalization: Yes (Referred to cardiology for dyspnea) CVD Risk Factors: Positive for Hypertension and Hypercholesterolemia; Negative for Diabetes or Smoking PE Risk Factors: Positive for Cancer; Negative for Recent Travel/Surgery, Recent Immobilization, Prior DVT or PE or OCP + Smoking + >/=35 TAD Risk Factors: Positive for Hypertension; Negative for Marfan's Syndrome or Family History [facility] Medical History Cancer CKD (chronic kidney disease) stage 3, GFR 30-59 ml/min CLL (chronic lymphocytic leukemia) Depression Essential hypertension Former smoker GERD (gastroesophageal reflux disease) History of chest pain History of syncope HTN (hypertension) Hypothyroidism Mixed hyperlipidemia Primary osteoarthritis of right hip Sinus bradycardia Home Medications allopurinol 100 mg tablet 100 mg PO DAILY 06/27/21 [History Last Taken 08/31/21] cetirizine 10 mg tablet 10 mg PO DAILY PRN ALLERGIES 06/27/21 [History Last Taken 08/30/21] escitalopram oxalate 10 mg tablet (Lexapro) 10 mg PO DAILY 06/27/21 [History Last Taken 08/31/21] hydrochlorothiazide 25 mg tablet 25 mg PO DAILY 06/27/21 [History Last Taken 08/31/21] ibrutinib 140 mg tablet 280 mg PO DAILY 06/28/21 [History Last Taken 08/31/21] levothyroxine 137 mcg tablet 137 mcg PO DAILY 06/28/21 [History Last Taken 08/31/21] losartan 100 mg tablet 100 mg PO DAILY 06/28/21 [History Last Taken 08/30/21] pantoprazole 40 mg tablet,delayed release 40 mg PO BID GERD 06/28/21 [History Last Taken 08/31/21] Plexus Nerve 1 cap PO/SL DAILY SUPPLEMENT 08/31/21 [History Last Taken 08/31/21] Allergy/AdvReac Type Severity Reaction Status Date / Time codeine Allergy Unknown Rash Verified 07/05/21 15:27 fentanyl Allergy Unknown Rash Verified 07/05/21 15:27 meloxicam Allergy Unknown Rash Verified 07/05/21 15:27 midazolam [From Versed] Allergy Unknown Rash Verified 07/05/21 15:27 oxycodone Allergy Unknown Hives Verified 07/05/21 15:27 pramipexole [From Mirapex] Allergy Unknown Rash Verified 07/05/21 15:27 amoxicillin Allergy Rash Verified 07/05/21 15:27 Penicillins [PCN] Allergy Rash Verified 07/05/21 15:27 Sulfa (Sulfonamide Allergy Rash Verified 07/05/21 15:27 Antibiotics) tramadol [From Ultram] Allergy Other Verified 07/05/21 15:27 cephalexin [From Keflex] AdvReac Unknown Unknown Verified 07/05/21 15:27 doxycycline AdvReac Unknown GI Upset Verified 07/05/21 15:27 ezetimibe [From Zetia] AdvReac Unknown Unknown Verified 07/05/21 15:27 lisinopril AdvReac Unknown Cough Verified 07/05/21 15:27 pregabalin [From Lyrica] AdvReac Unknown Mental Verified 07/05/21 15:27 Status Change trazodone AdvReac Unknown Mental Verified 07/05/21 15:27 Status Change BANDAIDS AdvReac Rash Uncoded 05/16/21 12:33 Family History Mother CVA (cerebral vascular accident) Hypertension Father Heart disease Hypertension Sister Cancer Colon Grandmother Diabetes Sister Thyroid disorder Surgical History History of foot surgery History of lumbar laminectomy History of total hysterectomy History of total replacement of both hip joints Previous back surgery Social History (Updated 08/31/21 @ 15:[address] Renny Mercedes MD) household members: none Smoking Status: Former smoker alcohol intake: never substance use type: does not use ROS ROS ED Constitutional Constitutional ED: Denies chills, fever(s), subjective, sweats or weight loss Eyes Eyes: Reports none ENT ENT ED: Denies ear pain, rhinorrhea or sore throat Cardiovascular Cardiovascular: Reports as per HPI; Denies orthopnea or paroxysmal nocturnal dyspnea Respiratory/Chest Respiratory/Chest: Reports dyspnea; Denies cough, dyspnea on exertion, orthopnea or paroxysmal nocturnal dyspnea Gastrointestinal Gastrointestinal: Denies abdominal pain, constipation, diarrhea, melena, nausea or vomiting Genitourinary Genitourinary ED: Denies dysuria, hematuria or urinary frequency Musculoskeletal Musculoskeletal: Denies arthralgias, back pain, myalgias or neck pain Integumentary Denies abscess, Abrasions or rash Neurologic Neurologic: Denies headache(s), paresthesias or weakness Psychiatric Psychiatric: Denies anxiety or depression Hematologic/Lymphatic Hematologic/Lymphatic: Denies easy bleeding, easy bruising or lymphadenopathy EXAM Physical Exam Const Vital Signs: 08/31/21 15:05 08/31/21 15:10 08/31/21 15:15 Temperature 97.9 F Temperature Source Temporal Pulse Rate 65 63 Respiratory Rate 18 18 Respiratory Effort Short of Breath Blood Pressure 133/46 H 135/74 H Blood Pressure Mean 75 94 Pulse Ox 95 97 Oxygen Delivery Method Room Air Room Air 08/31/21 15:25 08/31/21 16:46 Temperature Temperature Source Pulse Rate 59 L Respiratory Rate 18 Respiratory Effort Blood Pressure 151/71 H Blood Pressure Mean 97 Pulse Ox 95 Oxygen Delivery Method Room Air Room Air Positive well nourished, well developed and obese; Negative for cachectic or contractures General Appearance ED: well developed, NAD and pallor; Negative for cachectic or contractures Nutritional Appearance: obese; Negative for cachectic HEENT Reports moist mucous membranes HEENT Narrative: Ears normal. Nares patent. Uvula midline. There is no erythema exudate the posterior pharynx. Eyes PERRL and EOMs intact bilaterally General Eye ED: Negative for pale conjunctiva or scleral icterus Neck no lymphadenopathy, supple and no JVD Resp normal respiratory effort and clear to auscultation bilaterally Cardio regular rate, regular rhythm, S1 normal heart sound and S2 normal heart sound Peripheral Pulses: pulses 2+ throughout GI normal to inspection, nondistended, normoactive bowel sounds, soft to palpation, non-tender and non-distended; Negative for hepatosplenomegaly Back/Spine no CVA tenderness Extremity normal to inspection General Extremety ED: Negative for edema, pulses abnormal or tenderness General Extremity: Negative for edema or pulses abnormal Neuro oriented x3, CN's II-XII intact bilaterally and no sensory deficits noted Sensorium / Orientation: awake and alert Motor Exam: strength 5/5 throughout Psych mental status grossly normal Skin no rashes or lesions noted and no wounds General Skin Exam: pallor; Negative for jaundice Heart Score History: Moderately Suspicious ECG: Normal Age: >/= 65 years Risk Factors: >/= 3 Risk Factors or History of CAD Score: 5 MDM MDM MDM Narrative Medical decision making narrative: Patient presents with moderately suspicious history for coronary artery disease. The fact that the discomfort radiates to the right side makes this 3 times more likely its cardiac. Concerning that her sharp pressure sensation was alleviated with nitro as well. Will obtain cardiac work-up which will include EKG, chest x-ray appropriate blood work. Doubt this is due to gallbladder disease or hiatal hernia. Lab Data Attestation: I reviewed the patient's lab results. Lab results narrative: White count is slightly elevated and is nonspecific. Differential unremarkable. Basic metabolic panel reveals a creatinine of 1.35 with a GFR of 42. First troponin is normal at 5. Labs: Laboratory Results - last 24 hr 08/31/21 08/31/21 15:20 15:20 WBC 12.8 H RBC 4.07 L Hgb 12.6 Hct 38.1 MCV 93.6 MCH 31.0 MCHC 33.1 RDW Std Deviation 46.1 H RDW Coeff of Vazquez 13.5 Plt Count 374 MPV 10.6 Immature Gran % (Auto) 1.600 H Neut % (Auto) 62.0 Lymph % (Auto) 22.6 [place] % (Auto) 11.0 H Eos % (Auto) 2.0 Baso % (Auto) 0.8 Absolute Neuts (auto) 7.9 H Absolute Lymphs (auto) 2.89 Nucleated RBC % 0 Sodium 131 L Potassium 3.9 Chloride 95 L Carbon Dioxide 28.0 Anion Gap 8 BUN 27 H Creatinine 1.30 H Estim Creat Clear Calc 26.86 Est GFR (MDRD) Af Amer 51 L Est GFR (MDRD) Non-Af 42 L BUN/Creatinine Ratio 20.8 H Glucose 106 Calcium 8.9 Troponin I High Sens 5 Radiography Chest X-Ray - ED: 1 View and Read by ED Physician (Single view portable chest x- ray was interpreted by me independently at 1553. Chest x-ray is unremarkable. Cardiac silhouette and size normal. Perihilar region normal. Lung parenchyma normal. Osseous structures are normal. There is slight calcification of the aortic knob noted.) Diagnostic Testing: Clinical Impression(s) from Imaging Studies Chest X-Ray 08/31/21 15:50 IMPRESSION: There are no acute findings. Electronically Signed: Sarwat Solis MD at 16:01 EDT Reading Location ID and State: [facility] / [place] , Service support , EKG Initial EKG: Attestation: I personally reviewed and interpreted this EKG as follows: Interpretation: Sinus Rhythm (Rate is 62. EKG is normal without pain. SD interval is 140 ms. QS duration 90 ms. QT duration 0.14 ms. [place] is normal.) Discharge Plan Triage Chief Complaint: Chest Pain ED Provider: Renny Mercedes Dx/Rx/DC Orders Clinical Impression: Chest pain, Acute dyspnea Prescriptions: No Action allopurinol 100 mg tablet 100 mg PO DAILY cetirizine 10 mg tablet 10 mg PO DAILY PRN (Reason: ALLERGIES) escitalopram oxalate [Lexapro] 10 mg tablet 10 mg PO DAILY hydrochlorothiazide 25 mg tablet 25 mg PO DAILY ibrutinib 140 mg tablet 280 mg PO DAILY levothyroxine 137 mcg tablet 137 mcg PO DAILY losartan 100 mg tablet 100 mg PO DAILY pantoprazole 40 mg tablet,delayed release (DR/EC) 40 mg PO BID Plexus Nerve 1 cap PO/SL DAILY Primary Care Provider: Care Physician,No Primary Referrals: Urban Kruger NP, [employer] [NON-STAFF] - Disposition Disposition: Acute Care Hospital [facility]
[2021-08-31 15:35] LABS: Absolute Lymphocyte Count 2.89 X10^3/uL (0.83-4.51); Absolute Neutrophil Count 7.9 X10^3/uL (2.0-7.7); Basophil% 0.8 % (0-1); Eosinophil# 0.25 X10^3/uL; Hematocrit 38.1 % (37-47); Hemoglobin 12.6 g/dL (12.0-15.0); Lymphocyte # 2.89 X10^3/ul (0.83-4.51); Lymphocyte % 22.6 % (19-41); Mean Corp Hgb Conc 33.1 g/dL (32-36); Mean Corpuscular Volume 93.6 fL (81-99); Mean Platelet Vol. 10.6 fl (6.2-12.0); Monocyte# 1.41 X10^3/uL; NRBC Flagged by Analyzer 0 % (0-5); Neutrophil # 7.92 X10^3/uL (2.7-7.7); Platelet Count 374 K/mm3 (150-450); RBC Distribution Width CV 13.5 % (11.6-14.6); RBC Distribution Width SD 46.1 fl (35.1-43.9); Red Blood Count 4.07 M/mm3 (4.2-5.4); White Blood Count 12.8 K/mm3 (4.4-11.0)
--- NOTE | 2021-08-31 15:50 | RAD_ITS ---
STUDY: X-RAY CHEST REASON FOR EXAM: Female, 75 years old. chest pain TECHNIQUE: XR Chest 1 View COMPARISON: 2. FINDINGS: There is no demonstrated pleural abnormality. Cervical spine fusion hardware noted. Normal size heart. Normal mediastinum and samia. Normal visualized pulmonary arteries. There is atherosclerotic calcification of the aortic arch with tortuosity. There are diffuse degenerative changes of the visualized thoracic spine. There is degenerative osteoarthritis of the bilateral shoulders. There is no demonstrated abnormality of the visualized soft tissue structures of the upper abdomen. RAD/Chest 1 View (Portable) IMPRESSION: There are no acute findings. Electronically Signed: Sarwat Solis MD at 16:01 EDT ,
[2021-08-31 15:52] LABS: Anion Gap 8 (5-15); BUN 27 mg/dL (7-18); BUN/Creat Ratio 20.8 RATIO (10-20); Calcium,Total 8.9 mg/dL (8.5-10.1); Chloride 95 mmol/L (98-107); EST Glomerular Filtration Rate 42 mL/min (>60); Est Glom Filt Rate - Afr Amer 51 mL/min (>60); Estimated Creatinine Clearance 26.86 ml/min; Glucose 106 mg/dL (74-106); Potassium 3.9 mmol/L (3.5-5.1); Sodium Level 131 mmol/L (136-145); Troponin-I HS (w/2H Reflex) 5 pg/mL (3.0-54.0)
--- NOTE | 2021-08-31 17:14 | HP.PCM.HOS_ITS ---
HPI - General General Date of Admission: 08/31/21 HPI Narrative MARCELO GONZALEZ, is a 75 F who presents to the hospital with 2 mild episodes of chest pain Doximity 15 minutes apart. The first 1 occurred and was substernal and was short of a pressure-like pain that occurred while she was talking on the phone and then about 15 minutes later she had another episode that was similar. She did have some radiation of the pain to her jaw as well as some shortness of breath with each episode. She did have some relief of pain with nitroglycerin and was given aspirin by EMS on the way and to the ER. She does have a history of hypertension, and chronic lymphocytic leukemia. Initially in the ER her troponin was 5 and her heart score was 4-5 so admission was requested. She did have an echo in June of this year which was unremarkable. [facility] Medical History (Updated 08/31/21 @ 17:52 by Shawna Magana) Cancer CKD (chronic kidney disease) stage 3, GFR 30-59 ml/min CLL (chronic lymphocytic leukemia) Depression Essential hypertension Former smoker GERD (gastroesophageal reflux disease) History of chest pain History of syncope HTN (hypertension) Hypertension Hypothyroidism Mixed hyperlipidemia Non-smoker Osteoporosis Primary osteoarthritis of right hip Sinus bradycardia Home Medications allopurinol 100 mg tablet 100 mg PO DAILY 06/27/21 [History Last Taken 08/31/21] cetirizine 10 mg tablet 10 mg PO DAILY PRN ALLERGIES 06/27/21 [History Last Taken 08/30/21] escitalopram oxalate 10 mg tablet (Lexapro) 10 mg PO DAILY 06/27/21 [History Last Taken 08/31/21] hydrochlorothiazide 25 mg tablet 25 mg PO DAILY 06/27/21 [History Last Taken 08/31/21] ibrutinib 140 mg tablet 280 mg PO DAILY 06/28/21 [History Last Taken 08/31/21] levothyroxine 137 mcg tablet 137 mcg PO DAILY 06/28/21 [History Last Taken 08/31/21] losartan 100 mg tablet 100 mg PO DAILY 06/28/21 [History Last Taken 08/30/21] pantoprazole 40 mg tablet,delayed release 40 mg PO BID GERD 06/28/21 [History Last Taken 08/31/21] Plexus Nerve 1 cap PO/SL DAILY SUPPLEMENT 08/31/21 [History Last Taken 08/31/21] Allergy/AdvReac Type Severity Reaction Status Date / Time codeine Allergy Unknown Rash Verified 07/05/21 15:27 fentanyl Allergy Unknown Rash Verified 07/05/21 15:27 meloxicam Allergy Unknown Rash Verified 07/05/21 15:27 midazolam [From Versed] Allergy Unknown Rash Verified 07/05/21 15:27 oxycodone Allergy Unknown Hives Verified 07/05/21 15:27 pramipexole [From Mirapex] Allergy Unknown Rash Verified 07/05/21 15:27 amoxicillin Allergy Rash Verified 07/05/21 15:27 Penicillins [PCN] Allergy Rash Verified 07/05/21 15:27 Sulfa (Sulfonamide Allergy Rash Verified 07/05/21 15:27 Antibiotics) tramadol [From Ultram] Allergy Other Verified 07/05/21 15:27 cephalexin [From Keflex] AdvReac Unknown Unknown Verified 07/05/21 15:27 doxycycline AdvReac Unknown GI Upset Verified 07/05/21 15:27 ezetimibe [From Zetia] AdvReac Unknown Unknown Verified 07/05/21 15:27 lisinopril AdvReac Unknown Cough Verified 07/05/21 15:27 pregabalin [From Lyrica] AdvReac Unknown Mental Verified 07/05/21 15:27 Status Change trazodone AdvReac Unknown Mental Verified 07/05/21 15:27 Status Change BANDAIDS AdvReac Rash Uncoded 05/16/21 12:33 Family History Mother CVA (cerebral vascular accident) Hypertension Father Heart disease Hypertension Sister Cancer Colon Grandmother Diabetes Sister Thyroid disorder Surgical History History of foot surgery History of lumbar laminectomy History of total hysterectomy History of total replacement of both hip joints Previous back surgery Social History (Updated 08/31/21 @ 15:[address] Renny Mercedes MD) household members: none Smoking Status: Former smoker alcohol intake: never substance use type: does not use ROS Constitutional Constitutional: Denies chills, fatigue, fever(s) or malaise Eyes Eyes: Denies blurry vision ENT HEENT: Denies headache(s) or nasal discharge Cardiovascular Cardiovascular: Reports chest pain; Denies dyspnea on exertion or syncope Respiratory/Chest Respiratory/Chest: Denies cough, shortness of breath at rest or shortness of breath with exertion Gastrointestinal Gastrointestinal: Denies constipation, diarrhea, nausea or vomiting Genitourinary Genitourinary: Denies dysuria Neurologic Neurologic: Denies focal weakness, numbness or tremor(s) Psychiatric Psychiatric: Denies anxiety or depression Vital Signs Vital Signs Vital Signs: 08/31/21 15:05 08/31/21 15:10 08/31/21 15:15 Temperature 97.9 F Temperature Source Temporal Pulse Rate 65 63 Respiratory Rate 18 18 Respiratory Effort Short of Breath Blood Pressure 133/46 H 135/74 H Blood Pressure Mean 75 94 Pulse Ox 95 97 Oxygen Delivery Method Room Air Room Air 08/31/21 15:25 08/31/21 16:46 Temperature Temperature Source Pulse Rate 59 L Respiratory Rate 18 Respiratory Effort Blood Pressure 151/71 H Blood Pressure Mean 97 Pulse Ox 95 Oxygen Delivery Method Room Air Room Air Weight Weight: 181 lb 14.102 oz Body Mass Index (BMI) 35.5 Physical Exam Const alert, oriented x3 and no apparent distress General Appearance: cooperative HEENT normocephalic and moist oral mucous membranes Eyes PERRL, EOMs intact bilaterally and conjunctivae normal Neck supple and no JVD Resp normal respiratory effort, no retractions, no use of accessory muscles and clear to auscultation bilaterally Auscultation: Negative for crackles, rales, rhonchi or wheezes Cardio regular rate, regular rhythm, S1 normal heart sound, S2 normal heart sound and no murmurs GI soft to palpation, non-tender and non-distended; Negative for hepatosplenomegaly Extremity no clubbing, cyanosis or edema Skin no rashes or lesions noted Neuro no focal motor deficits and no sensory deficits noted Psych affect normal Appearance: appropriate Results Lab / Micro Data Result Diagrams: 08/31/21 15:20 08/31/21 15:20 Labs: Laboratory Results - last 24 hr 08/31/21 15:20: WBC 12.8 H, RBC 4.07 L, Hgb 12.6, Hct 38.1, MCV 93.6, MCH 31.0, MCHC 33.1, RDW Std Deviation 46.1 H, RDW Coeff of Vazquez 13.5, Plt Count 374, MPV 10.6, Immature Gran % (Auto) 1.600 H, Neut % (Auto) 62.0, Lymph % (Auto) 22.6, [place] % (Auto) 11.0 H, Eos % (Auto) 2.0, Baso % (Auto) 0.8, Absolute Neuts (auto) 7.9 H, Absolute Lymphs (auto) 2.89, Nucleated RBC % 0 08/31/21 15:20: Sodium 131 L, Potassium 3.9, Chloride 95 L, Carbon Dioxide 28.0, Anion Gap 8, BUN 27 H, Creatinine 1.30 H, Estim Creat Clear Calc 26.86, Est GFR (MDRD) Af Amer 51 L, Est GFR (MDRD) Non-Af 42 L, BUN/Creatinine Ratio 20.8 H, Glucose 106, Calcium 8.9, Troponin I High Sens 5 Radiology Impression Chest X-Ray 08/31/21 15:50 IMPRESSION: There are no acute findings. Electronically Signed: Sarwat Solis MD at 16:01 EDT Reading Location ID and State: [facility] / [place] , Service support , Assessment & Plan Assessment/Plan (1) Chest pain: PLAN: Plan 1. Chest pain/HTN ? Will obtain serial troponins ? We will proceed with a stress test in the morning ? We will continue with her home blood pressure medications 2. Hypothyroidism ? Stable ? Continue with her Synthroid 3. GERD ? Stable ? Continue with her PPI 4. CLL ? She is currently on treatment with ibrutinib ? She can resume this on discharge 5. Anxiety/depression ? Stable ? Continue with escitalopram DVT: Ambulation Charges/Coding Visit Charges OBSV E&M: 78423 Initial observation care L2
[2021-08-31 17:29] LABS: Reflex Troponin-HS? (from REC) Y
[2021-08-31 18:13] LABS: Troponin-I HS 6 pg/mL (3.0-54.0)
--- NOTE | 2021-08-31 19:05 | EKG12_ITS ---
Test Reason : Blood Pressure : / mmHG Vent. Rate : 060 BPM Atrial Rate : 060 BPM P-R Int : 146 ms QRS Dur : 098 ms QT Int : 422 ms P-R-T Axes : 027 026 048 degrees QTc Int : 422 ms Normal sinus rhythm Normal ECG Confirmed by LILIAN HOLMAN, KURTIS ([id number]), magazine editor KERRY MARIN ([id number]) on 09/04/2021 10:42:14 AM Referred By: Confirmed By:KURTIS QUINTANA MD
[2021-08-31] MEDS: Pantoprazole Sodium 40 MG Tablet PO (20:37)
[2021-08-31] MEDS: 0.9% Saline Lock 10 ML Syringe IV (20:38)
[2021-08-31 21:59] LABS: Troponin-I HS 6 pg/mL (3.0-54.0)
[2021-09-01] VITALS (7 sets, daily range): BP systolic 118–148; BP diastolic 51–76; PULSE 55–77; RESP 16; TEMP 36.3–36.9; O2SAT 94–97
[2021-09-01] MEDS: 0.9% Saline Lock 10 ML Syringe IV (02:33)
--- NOTE | 2021-09-01 05:55 | EKG12_ITS ---
Test Reason : am ekg Blood Pressure : / mmHG Vent. Rate : 060 BPM Atrial Rate : 060 BPM P-R Int : 152 ms QRS Dur : 098 ms QT Int : 416 ms P-R-T Axes : 032 038 059 degrees QTc Int : 416 ms Sinus rhythm with Premature atrial complexes Otherwise normal ECG Confirmed by LILIAN HOLMAN, KURTIS ([id number]), assistant editor KERRY MARIN ([id number]) on 09/04/2021 10:35:15 AM Referred By: Confirmed By:KURTIS QUINTANA MD
[2021-09-01] MEDS: Losartan Potassium 100 MG Tablet PO (06:41)
[2021-09-01] MEDS: Levothyroxine 137 MCG Tablet PO (06:41)
[2021-09-01 06:55] LABS: Absolute Lymphocyte Count 2.76 X10^3/uL (0.83-4.51); Basophil# 0.12 X10^3/uL; Basophil% 1.2 % (0-1); Eosinophil# 0.25 X10^3/uL; Eosinophils% 2.4 % (0-5); Hematocrit 33.9 % (37-47); Hemoglobin 11.6 g/dL (12.0-15.0); Lymphocyte # 2.76 X10^3/ul (0.83-4.51); Lymphocyte % 26.5 % (19-41); Mean Corp Hgb Conc 34.2 g/dL (32-36); Mean Corpuscular Hgb 30.6 pg (27.0-32.0); Mean Corpuscular Volume 89.4 fL (81-99); Mean Platelet Vol. 10.3 fl (6.2-12.0); Monocyte# 1.13 X10^3/uL; Monocyte% 10.9 % (0-10); NRBC Flagged by Analyzer 0 % (0-5); Neutrophil # 6.01 X10^3/uL (2.7-7.7); Neutrophil % 57.7 % (47-70); Platelet Count 306 K/mm3 (150-450); RBC Distribution Width CV 13.2 % (11.6-14.6); RBC Distribution Width SD 43.3 fl (35.1-43.9); Red Blood Count 3.79 M/mm3 (4.2-5.4); White Blood Count 10.4 K/mm3 (4.4-11.0)
[2021-09-01 07:50] LABS: Anion Gap 5 (5-15); BUN 20 mg/dL (7-18); BUN/Creat Ratio 18.7 RATIO (10-20); Calcium,Total 8.9 mg/dL (8.5-10.1); Chloride 99 mmol/L (98-107); Creatinine, Serum 1.07 mg/dL (0.55-1.02); EST Glomerular Filtration Rate 53 mL/min (>60); Est Glom Filt Rate - Afr Amer 64 mL/min (>60); Estimated Creatinine Clearance 32.63 ml/min; Glucose 79 mg/dL (74-106); Potassium 3.9 mmol/L (3.5-5.1); Sodium Level 132 mmol/L (136-145)
[2021-09-01] MEDS: Acetaminophen 325 MG Tablet 650 MG PO (09:53)
[2021-09-01] MEDS: Pantoprazole Sodium 40 MG Tablet PO (13:51)
[2021-09-01] MEDS: hydroCHLOROthiazide 25 MG Tablet PO (13:51)
--- NOTE | 2021-09-01 14:00 | STRESSREP_ITS ---
Stress Test Report Pharmacologic/Lexiscan myocardial perfusion stress test. Indication; 75-year-old patient presented to the ER at [facility] with mild episode of chest pain. Described as substernal associated with symptoms of shortness of breath. Also she did have some radiation of pain to her jaw as wel l as some episodes of shortness of breath. Patient had multiple risk factors with history of hypertension hyperlipidemia also she had chronic lymphocytic leukemia and chronic kidney disease. Stress protocol: Resting EKG demonstrates. Normal sinus rhythm. 0.4 mg of regadenoson was infused per usual protocol followed by rapid intravenous saline flush injection continuous EKG monitoring was performed. The maximum heart rate attained was 101 bpm which was 69% of maximum predicted heart . Stress EKG showed[, no significant change from the resting EKG, with maximum hea rt rate of 101 bpm. Arrhythmia: No arrhythmia demonstrated Symptoms: Patient had no symptoms of chest pain Blood pressure at rest: 142/84 mmHg blood pressure at the end of stress: 142/84 mmHg Myocardial perfusion; 11.4 mCi ]of Technetium 99m Sestamibi was injected at rest. [ 0.4 mg ]of Regadenoson was infused per usual protocol peak infusion 32.7 mCi ]of Technetium 99m sestamibi was injected. Stress images were obtained stress and rest images were reconstructed and compared in the short axis vertical and horizontal long axis. Gated images were also obtained Perfusion SPECT analysis: Review of the images demonstrate normal uptake of sestamibi at rest, post stress images demonstrate similar uptake of sestamibi to the resting images, homogeneous tracer uptake With no evidence of reversible myocardial ischemia. Gated SPECT analysis: The gated ejection fraction is 50%. Conclusion: Negative Lexiscan sestamibi myocardial perfusion study for reversible myocardial ischemia Low normal ejection fraction calculated 50% Fartun Vela MD,FACC,[facility]
--- NOTE | 2021-09-01 14:16 | PCM.DC ---
Discharge Instructions Diet Discharge Diet: Low fat / Low cholesterol Activity Discharge Activity: Return to Normal Activity Dressing / Incision Call your doctor if you observe: Fever of 101 or Higher, Shortness of breath, Dizziness, Fainting spells, Swelling in the ankles, Chest pain and Increased palpitations (irregular heartbeat) Follow Up Care Test Results: Test results from this visit will be discussed in further detail at your follow-up appointment, if applicable. Discharge Plan Admission Admit Date/Time: 08/31/21 17:11 Attending Provider: Juan Miguel Delgado Primary Care Provider: Care PhysicianChristy Primary Discharge Orders/Prescriptions Prescriptions: Continued allopurinol 100 mg tablet 100 mg PO DAILY cetirizine 10 mg tablet 10 mg PO DAILY PRN (Reason: ALLERGIES) escitalopram oxalate [Lexapro] 10 mg tablet 10 mg PO DAILY hydrochlorothiazide 25 mg tablet 25 mg PO DAILY ibrutinib 140 mg tablet 280 mg PO DAILY levothyroxine 137 mcg tablet 137 mcg PO DAILY losartan 100 mg tablet 100 mg PO DAILY pantoprazole 40 mg tablet,delayed release (DR/EC) 40 mg PO BID Plexus Nerve 1 cap PO/SL DAILY Referrals / Follow Up: Care Physician,No Primary [Primary Care Provider] - Urban Kruger STEAMBOAT INSPECTOR, STEAMBOAT INSPECTOR-C [NON-STAFF] - Disposition Disposition (needs filled in before D/C Order can be placed): Home, Self Care
--- NOTE | 2021-09-01 14:21 | PCM.DC.SUM ---
Providers Date of Admission: 08/31/21 Primary Care Physician: No Primary Care Phys Reason For Visit: CHEST PAIN Diagnosis Discharge Diagnosis (1) Chest pain: Status: Acute Code(s): R07.9 - Chest pain, unspecified Plan 1. Chest pain/HTN ? Will obtain serial troponins ? We will proceed with a stress test in the morning ? We will continue with her home blood pressure medications 2. Hypothyroidism ? Stable ? Continue with her Synthroid 3. GERD ? Stable ? Continue with her PPI 4. CLL ? She is currently on treatment with ibrutinib ? She can resume this on discharge 5. Anxiety/depression ? Stable ? Continue with escitalopram DVT: Ambulation Medications at Discharge Home Medications allopurinol 100 mg tablet 100 mg PO DAILY 06/27/21 cetirizine 10 mg tablet 10 mg PO DAILY PRN ALLERGIES 06/27/21 escitalopram oxalate 10 mg tablet (Lexapro) 10 mg PO DAILY 06/27/21 hydrochlorothiazide 25 mg tablet 25 mg PO DAILY 06/27/21 ibrutinib 140 mg tablet 280 mg PO DAILY 06/28/21 levothyroxine 137 mcg tablet 137 mcg PO DAILY 06/28/21 losartan 100 mg tablet 100 mg PO DAILY 06/28/21 pantoprazole 40 mg tablet,delayed release 40 mg PO BID GERD 06/28/21 Plexus Nerve 1 cap PO/SL DAILY SUPPLEMENT 08/31/21 Hospital Course Operations None Procedures Nuclear stress test Summary of Care Provided Minutes Spent on Discharge: 38 Hospital Course: Per HPI:MARCELO GONZALEZ, is a 75 F who presents to the hospital with 2 mild episodes of chest pain Doximity 15 minutes apart.? The first 1 occurred and was substernal and was short of a pressure-like pain that occurred while she was talking on the phone and then about 15 minutes later she had another episode that was similar.? She did have some radiation of the pain to her jaw as well as some shortness of breath with each episode.? She did have some relief of pain with nitroglycerin and was given aspirin by EMS on the way and to the ER.? She does have a history of hypertension, and chronic lymphocytic leukemia.? Initially in the ER her troponin was 5 and her heart score was 4-5 so admission was requested.? She did have an echo in June of this year which was unremarkable. Hospital Course: 1.? Chest pain/HTN ? Will obtain serial troponins ? We will proceed with a stress test in the morning ? We will continue with her home blood pressure medications ? She had a stress test today which was unremarkable with an EF of 50 to 55% echo in June was also unremarkable and during her admission her troponin stayed negative. I discussed with her the plan for discharge today she expressed understanding of the risk benefits of going home and would like to go home today. I did discuss with her the possibility of starting an aspirin and a statin however she is resistant to having to add more medications to her medicine cabinet. It might be beneficial to slowly try to get her to acclimate to the idea of adding 1 or both of these medications. I recommend that she follow-up with her PCP for further discussions within the next 3 to 5 days. 2.? Hypothyroidism ? Stable ? Continue with her Synthroid 3.? GERD ? Stable ? Continue with her PPI 4.? CLL ? She is currently on treatment with ibrutinib ? She can resume this on discharge 5.? Anxiety/depression ? Stable ? Continue with escitalopram Physical Exam Narrative Const alert, oriented x3 and no apparent distress General Appearance: cooperative HEENT normocephalic and moist oral mucous membranes Eyes PERRL, EOMs intact bilaterally and conjunctivae normal Neck supple and no JVD Resp normal respiratory effort, no retractions, no use of accessory muscles and clear to auscultation bilaterally Auscultation: Negative for crackles, rales, rhonchi or wheezes Cardio regular rate, regular rhythm, S1 normal heart sound, S2 normal heart sound and no murmurs GI soft to palpation, non-tender and non-distended; Negative for hepatosplenomegaly Extremity no clubbing, cyanosis or edema Skin no rashes or lesions noted Neuro no focal motor deficits and no sensory deficits noted Psych affect normal Appearance: appropriate Weight / BMI Weight Weight: 166 lb 10.711 oz Body Mass Index (BMI) 32.8 ABG / Lab / Microbiology Data Result Diagrams: 09/01/21 05:25 09/01/21 05:25 Laboratory: Laboratory Results - last 24 hr 08/31/21 15:20: WBC 12.8 H, RBC 4.07 L, Hgb 12.6, Hct 38.1, MCV 93.6, MCH 31.0, MCHC 33.1, RDW Std Deviation 46.1 H, RDW Coeff of Vazquez 13.5, Plt Count 374, MPV 10.6, Immature Gran % (Auto) 1.600 H, Neut % (Auto) 62.0, Lymph % (Auto) 22.6, [place] % (Auto) 11.0 H, Eos % (Auto) 2.0, Baso % (Auto) 0.8, Absolute Neuts (auto) 7.9 H, Absolute Lymphs (auto) 2.89, Nucleated RBC % 0 08/31/21 15:20: Sodium 131 L, Potassium 3.9, Chloride 95 L, Carbon Dioxide 28.0, Anion Gap 8, BUN 27 H, Creatinine 1.30 H, Estim Creat Clear Calc 26.86, Est GFR (MDRD) Af Amer 51 L, Est GFR (MDRD) Non-Af 42 L, BUN/Creatinine Ratio 20.8 H, Glucose 106, Calcium 8.9, Troponin I High Sens 5 08/31/21 17:34: Troponin I High Sens 6 08/31/21 21:25: Troponin I High Sens 6 09/01/21 05:25: WBC 10.4, RBC 3.79 L, Hgb 11.6 L, Hct 33.9 L, MCV 89.4, MCH 30.6, MCHC 34.2, RDW Std Deviation 43.3, RDW Coeff of Vazquez 13.2, Plt Count 306, MPV 10.3, Immature Gran % (Auto) 1.300 H, Neut % (Auto) 57.7, Lymph % (Auto) 26.5, [place] % (Auto) 10.9 H, Eos % (Auto) 2.4, Baso % (Auto) 1.2 H, Absolute Neuts (auto) 6.0, Absolute Lymphs (auto) 2.76, Nucleated RBC % 0 09/01/21 05:25: Sodium 132 L, Potassium 3.9, Chloride 99, Carbon Dioxide 28.0, Anion Gap 5, BUN 20 H, Creatinine 1.07 H, Estim Creat Clear Calc 32.63, Est GFR (MDRD) Af Amer 64, Est GFR (MDRD) Non-Af 53 L, BUN/Creatinine Ratio 18.7, Glucose 79, Calcium 8.9 Radiography Diagnostic Testing: Radiology Impression Chest X-Ray 08/31/21 15:50 IMPRESSION: There are no acute findings. Electronically Signed: Sarwat Solis MD at 16:01 EDT Reading Location ID and State: [facility] / [place] , Service support , D/C Instructions Discharge Diet: Low fat / Low cholesterol Call your doctor if you observe: Fever of 101 or Higher, Shortness of breath, Dizziness, Fainting spells, Swelling in the ankles, Chest pain and Increased palpitations (irregular heartbeat) Meaningful Use Info Meaningful Use Diagnoses (Choose all that apply): None applicable Discharge Plan Admission Admit Date/Time: 08/31/21 17:11 Attending Provider: Juan Miguel Delgado Primary Care Provider: Care PhysicianChristy Primary Discharge Orders/Prescriptions Prescriptions: Continued allopurinol 100 mg tablet 100 mg PO DAILY cetirizine 10 mg tablet 10 mg PO DAILY PRN (Reason: ALLERGIES) escitalopram oxalate [Lexapro] 10 mg tablet 10 mg PO DAILY hydrochlorothiazide 25 mg tablet 25 mg PO DAILY ibrutinib 140 mg tablet 280 mg PO DAILY levothyroxine 137 mcg tablet 137 mcg PO DAILY losartan 100 mg tablet 100 mg PO DAILY pantoprazole 40 mg tablet,delayed release (DR/EC) 40 mg PO BID Plexus Nerve 1 cap PO/SL DAILY Referrals / Follow Up: Care Physician,No Primary [Primary Care Provider] - Urban Kruger VISUAL BASIC DEVELOPER, VISUAL BASIC DEVELOPER-C [NON-STAFF] - Disposition Disposition (needs filled in before D/C Order can be placed): Home, Self Care Charges/Coding Visit Charges OBSV E&M: 47992 Observation care discharge
[2021-09-01] MEDS: Escitalopram Oxalate 10 MG Tablet PO (14:22)
[2021-09-01] MEDS: Allopurinol 100 MG Tablet PO (14:22)
--- NOTE | 2021-09-01 14:26 | PHA.DC.MR ---
Pharmacy Service has performed discharge medication reconciliation for this patient. The patient's discharge medication list was reviewed for discrepancies and discrepancies were resolved. Home Medications allopurinol 100 mg tablet 100 mg PO DAILY 06/27/21 cetirizine 10 mg tablet 10 mg PO DAILY PRN ALLERGIES 06/27/21 escitalopram oxalate 10 mg tablet (Lexapro) 10 mg PO DAILY 06/27/21 hydrochlorothiazide 25 mg tablet 25 mg PO DAILY 06/27/21 ibrutinib 140 mg tablet 280 mg PO DAILY 06/28/21 levothyroxine 137 mcg tablet 137 mcg PO DAILY 06/28/21 losartan 100 mg tablet 100 mg PO DAILY 06/28/21 pantoprazole 40 mg tablet,delayed release 40 mg PO BID GERD 06/28/21 Plexus Nerve 1 cap PO/SL DAILY SUPPLEMENT 08/31/21
--- NOTE | 2021-09-01 15:10 | STRESSREP ---
Stress Test Report Pharmacologic/Lexiscan myocardial perfusion stress test. Indication; 86-year-old female significant history of proximal A. fib, CAD status post carotid artery stent Abdominal aortic mural thrombus, hyperlipidemia, hypertension, diabetes mellitus presented to the ER with right-sided chest pain that radiated to the top side of her right arm dull episodic discomfort improved with rest and worsening with exertion associated with dyspnea on exertion. Scheduled for Lexiscan nuclear stress test Stress protocol: Resting EKG demonstrates. Atrial fibrillation controlled ventricular rate 0.4 mg of regadenoson was infused per usual protocol followed by rapid intravenous saline flush injection continuous EKG monitoring was performed. The maximum heart rate attained was 93 bpm which was 69% of maximum predicted heart . Stress EKG showed[, no significant change from the resting EKG, with maximum heart rate of 107bpm. Arrhythmia: Patient has underlying atrial fibrillation Symptoms: Patient had no symptoms of chest pain Blood pressure at rest: 162/90 mmHg blood pressure at the end of stress: 162/90 mmHg Myocardial perfusion protocol. 11.1 mCi ]of Technetium 99m Sestamibi was injected at rest. [ 0.4 mg ]of Regadenoson was infused per usual protocol peak infusion 36 mCi ]of Technetium 99m sestamibi was injected. Stress images were obtained stress and rest images were reconstructed and compared in the short axis vertical and horizontal long axis. Gated images were were not done due to underlying atrial fibrillation Perfusion SPECT analysis: Review of the images demonstrate normal uptake of sestamibi at rest, post stress images demonstrate similar uptake of sestamibi to the resting images, homogeneous tracer uptake With no evidence of reversible myocardial ischemia. Gated SPECT analysis: Gated SPECT images were not performed Conclusion: Negative Lexiscan sestamibi myocardial perfusion study for reversible myocardial ischemia Fartun Vela MD,FACC,[facility]
--- NOTE | 2021-09-01 15:26 | STRESSREP ---
Stress Test Report Pharmacologic/Lexiscan myocardial perfusion stress test. Indication; 89-year-old female who presented with symptoms of chest pain, with left arm weakness she became diaphoretic And scheduled for Lexiscan nuclear stress test. Stress protocol: Resting EKG demonstrates. Normal sinus rhythm. 0.4 mg of regadenoson was infused per usual protocol followed by rapid intravenous saline flush injection continuous EKG monitoring was performed. The maximum heart rate attained was 98 bpm which was 74% of maximum predicted heart . Stress EKG showed[, no significant change from the resting EKG, with maximum heart rate of 98 bpm. Arrhythmia: No arrhythmia demonstrated Symptoms: Patient had no symptoms of chest pain Blood pressure at rest: 122/68 mmHg blood pressure at the end of stress: 130/52 mmHg Myocardial perfusion protocol. 11.8 mCi ]of Technetium 99m Sestamibi was injected at rest. [ 0.4 mg ]of Regadenoson was infused per usual protocol peak infusion 33.1 mCi ]of Technetium 99m sestamibi was injected. Stress images were obtained stress and rest images were reconstructed and compared in the short axis vertical and horizontal long axis. Gated images were also obtained Perfusion SPECT analysis: Review of the images demonstrate normal uptake of sestamibi at rest, post stress images demonstrate similar uptake of sestamibi to the resting images, homogeneous tracer uptake With no evidence of reversible myocardial ischemia. Gated SPECT analysis: The gated ejection fraction is 74%. Normal left ventricular wall motion and normal LV systolic function. Conclusion: Negative Lexiscan sestamibi myocardial perfusion study for reversible myocardial ischemia Normal left ventricular wall motion and normal LV systolic function Fartun Vela MD,FACC,[facility]
== END 2021-09-01 14:20 | disposition home or self-care (01) ==
LOC: ED 17:16 → PCU 17:29
PROVIDERS: Admitting Provider Family Medicine; Emergency Provider Emergency Medicine; Visit Provider Family Medicine
DX: R07.89 Other chest pain (principal); C91.10 Chronic lymphocytic leukemia of B-cell type not having achieved remission; N18.30 Chronic kidney disease, stage 3 unspecified; R68.84 Jaw pain; I12.9 Hypertensive chronic kidney disease with stage 1 through stage 4 chronic kidney disease, or unspecified chronic kidney disease; E03.9 Hypothyroidism, unspecified; K21.9 Gastro-esophageal reflux disease without esophagitis; E78.2 Mixed hyperlipidemia; F41.9 Anxiety disorder, unspecified; I25.10 Atherosclerotic heart disease of native coronary artery without angina pectoris; F32.A Depression, unspecified; M16.11 Unilateral primary osteoarthritis, right hip; Z79.899 Other long term (current) drug therapy; Z87.891 Personal history of nicotine dependence
CPT/HCPCS: 36415; 71045; 78452; 80048; 84484; 85025; 93005; 93017; 99218; 99285; A9500; A4216; G0378; J2785

== ENCOUNTER 2021-11-07 05:36 | Emergency (ER) | payer MEDICARE, OTHER, SELFPAY ==
[2021-11-07 05:37] VITALS: BP 155/9; PULSE 78; RESP 20; TEMP 37.2; O2SAT 91; BMI 32.3
--- NOTE | 2021-11-07 05:51 | EKG12_ITS ---
Test Reason : DYSRHYTHMIA Blood Pressure : / mmHG Vent. Rate : 087 BPM Atrial Rate : 097 BPM P-R Int : 166 ms QRS Dur : 092 ms QT Int : 352 ms P-R-T Axes : 053 017 045 degrees QTc Int : 423 ms Sinus rhythm with marked sinus arrhythmia Otherwise normal ECG Confirmed by SATISH HOLMAN, BLAKE ([id number]), video news editor KERRY MARIN ([id number]) on 11/08/2021 1:57:52 PM Referred By: LORNA Confirmed By:BLAKE COVARRUBIAS MD
--- NOTE | 2021-11-07 05:53 | EX.ED.DYSGE1 ---
HPI <Dr. Shawna Jimenez MD - Last Filed: 11/07/21 07:06> History of Present Illness Chief Complaint: Shortness of Breath Detail of Chief Complaint: Short of breath, headache, sore throat, earache Informant: patient Onset/Context/Timing Onset: Days Context: Gradual Onset Current Severity: Moderate Maximum Severity: Moderate Narrative Narrative: Patient presents secondary to COVID symptoms. She states she became ill on Saturday and had a positive COVID test. She went to urgent care on Saturday and had a confirmatory test. She is currently on oral chemotherapy secondary to CLL. She contacted her oncologist to see if she is eligible for Paxlovid but is not secondary to the chemotherapy she is taking. Dr. Salas sent a confirmatory COVID test which should be back around noon today. If this test is positive he was going to send her to the hospital for an infusion. Patient reportedly felt worse overnight presented to the emergency room for evaluation. She is complaining of right ear pain, sore throat, headache. She has cough. She had 2 episodes of vomiting with this illness. states they have been watching her pulse ox at home and it has been above 94%. [facility] <Dr. Shawna Jimenez MD - Last Filed: 11/07/21 07:06> [facility] Medical History Cancer CKD (chronic kidney disease) stage 3, GFR 30-59 ml/min CLL (chronic lymphocytic leukemia) Depression Former smoker GERD (gastroesophageal reflux disease) History of chest pain History of syncope HTN (hypertension) Hypothyroidism Mixed hyperlipidemia Non-smoker Osteoporosis Primary osteoarthritis of right hip Rheumatoid arthritis Sinus bradycardia Home Medications allopurinol 100 mg tablet 100 mg PO DAILY 06/27/21 [History Last Taken 08/31/21] cetirizine 10 mg tablet 10 mg PO DAILY PRN ALLERGIES 06/27/21 [History Last Taken 08/30/21] escitalopram oxalate 10 mg tablet (Lexapro) 10 mg PO DAILY 06/27/21 [History Last Taken 08/31/21] hydrochlorothiazide 25 mg tablet 25 mg PO DAILY 06/27/21 [History Last Taken 08/31/21] ibrutinib 140 mg tablet 280 mg PO DAILY 06/28/21 [History Last Taken 08/31/21] levothyroxine 137 mcg tablet 137 mcg PO DAILY 06/28/21 [History Last Taken 08/31/21] losartan 100 mg tablet 100 mg PO DAILY 06/28/21 [History Last Taken 08/30/21] pantoprazole 40 mg tablet,delayed release 40 mg PO BID GERD 06/28/21 [History Last Taken 08/31/21] Plexus Nerve 1 cap PO/SL DAILY SUPPLEMENT 08/31/21 [History Last Taken 08/31/21] Allergy/AdvReac Type Severity Reaction Status Date / Time codeine Allergy Unknown Rash Verified 11/07/21 05:46 fentanyl Allergy Unknown Rash Verified 11/07/21 05:46 meloxicam Allergy Unknown Rash Verified 11/07/21 05:46 midazolam [From Versed] Allergy Unknown Rash Verified 11/07/21 05:46 oxycodone Allergy Unknown Hives Verified 11/07/21 05:46 pramipexole [From Mirapex] Allergy Unknown Rash Verified 11/07/21 05:46 amoxicillin Allergy Rash Verified 11/07/21 05:46 Penicillins [PCN] Allergy Rash Verified 11/07/21 05:46 Sulfa (Sulfonamide Allergy Rash Verified 11/07/21 05:46 Antibiotics) tramadol [From Ultram] Allergy Other Verified 11/07/21 05:46 cephalexin [From Keflex] AdvReac Unknown Unknown Verified 11/07/21 05:46 doxycycline AdvReac Unknown GI Upset Verified 11/07/21 05:46 ezetimibe [From Zetia] AdvReac Unknown Unknown Verified 11/07/21 05:46 lisinopril AdvReac Unknown Cough Verified 11/07/21 05:46 pregabalin [From Lyrica] AdvReac Unknown Mental Verified 11/07/21 05:46 Status Change trazodone AdvReac Unknown Mental Verified 11/07/21 05:46 Status Change adhesive AdvReac Rash Verified 11/07/21 05:46 Family History Mother CVA (cerebral vascular accident) Hypertension Father Heart disease Hypertension Sister Cancer Colon Grandmother Diabetes Sister Thyroid disorder Surgical History History of foot surgery History of lumbar laminectomy History of total hysterectomy History of total replacement of both hip joints Previous back surgery Social History household members: none Smoking Status: Former smoker alcohol intake: never substance use type: does not use ROS <Dr. Shawna Jimenez MD - Last Filed: 11/07/21 07:06> ROS ED Constitutional Constitutional ED: Reports fever(s); Denies chills Eyes Eyes: Denies change in vision or discharge from eye(s) ENT ENT ED: Reports ear pain right and sore throat; Denies discharge from eye(s) or rhinorrhea Cardiovascular Cardiovascular: Denies chest pain or palpitations Respiratory/Chest Respiratory/Chest: Reports cough and dyspnea Gastrointestinal Gastrointestinal: Reports nausea and vomiting; Denies abdominal pain or diarrhea Genitourinary Genitourinary ED: Denies dysuria Musculoskeletal Musculoskeletal: Reports myalgias; Denies back pain or extremity pain Integumentary Denies Abrasions or rash Neurologic Neurologic: Reports headache(s) and weakness Psychiatric Psychiatric: Denies anxiety or depression Allergic/Immunologic Allergic/Immunologic ED: Denies lip swelling or urticaria EXAM <Dr. Shawna Jimenez MD - Last Filed: 11/07/21 07:06> Physical Exam Const Vital Signs: 11/07/21 05:37 11/07/21 05:45 Temperature 99 F Temperature Source Temporal Pulse Rate 78 Respiratory Rate 20 H Respiratory Effort Normal Non-Labored Respiratory Depth Normal Respiratory Pattern Normal Blood Pressure 155/9 H Blood Pressure Mean 57 Pulse Ox 91 Oxygen Delivery Method Room Air Room Air Positive well nourished and well developed General Appearance ED: well developed HEENT Reports normocephalic, head/scalp atraumatic and TM's clear Tympanic Membrane ED: Yes TM's clear Eyes PERRL and EOMs intact bilaterally Neck supple Chest Wall inspection of chest normal and palpation of chest normal Resp normal respiratory effort and clear to auscultation bilaterally Cardio regular rate and regular rhythm GI normal to inspection, nondistended, normoactive bowel sounds Palpation: soft Extremity normal to inspection Neuro oriented x3 Neuro Narrative: No focal neurologic deficit. Sensorium / Orientation: alert Psych mental status grossly normal Skin no rashes or lesions noted <Dr. Alejo Guajardo MD - Last Filed: 11/07/21 07:57> Physical Exam Const Vital Signs: 11/07/21 05:37 11/07/21 05:45 Temperature 99 F Temperature Source Temporal Pulse Rate 78 Respiratory Rate 20 H Respiratory Effort Normal Non-Labored Respiratory Depth Normal Respiratory Pattern Normal Blood Pressure 155/9 H Blood Pressure Mean 57 Pulse Ox 91 Oxygen Delivery Method Room Air Room Air MDM <Dr. Shawna Jimenez MD - Last Filed: 11/07/21 07:06> [facility] MDM Narrative Medical decision making narrative: Patient placed on cardiac cath technician. EKG, chest x-ray, lab work obtained. Patient given Tylenol along with IV fluids. Lab Data Attestation: I reviewed the patient's lab results. Labs: Laboratory Results - last 24 hr 11/07/21 11/07/21 11/07/21 06:00 06:00 06:00 WBC 5.9 RBC 3.83 L Hgb 11.9 L Hct 35.4 L MCV 92.4 MCH 31.1 MCHC 33.6 RDW Std Deviation 47.5 H RDW Coeff of Vazquez 13.9 Plt Count 242 MPV 10.1 Immature Gran % (Auto) 0.700 Neut % (Auto) 63.3 Lymph % (Auto) 10.5 L [place] % (Auto) 23.8 H Eos % (Auto) 0.7 Baso % (Auto) 1.0 Absolute Neuts (auto) 3.7 Absolute Lymphs (auto) 0.62 L Nucleated RBC % 0 D-Dimer Quant (PE/DVT) 0.36 Sodium 133 L Potassium 3.7 Chloride 99 Carbon Dioxide 24.0 Anion Gap 10 BUN 11 Creatinine 1.03 H Estim Creat Clear Calc 33.38 Est GFR (MDRD) Af Amer 67 Est GFR (MDRD) Non-Af 55 L BUN/Creatinine Ratio 10.7 Glucose 100 Calcium 8.7 Troponin I High Sens 13 Radiography Chest X-Ray - ED: 1 View, Read by ED Physician and Chronic Changes Diagnostic Testing: Clinical Impression(s) from Imaging Studies Chest X-Ray 11/07/21 06:10 IMPRESSION: Suspect retrocardiac left lower lobe infiltrate. Electronically Signed: Bandar Agustin MD at 6:41 EDT , Chest CT 11/07/21 06:43 IMPRESSION: 1. Mild atherosclerosis. 2. Mild atelectasis in the posterior lungs and lung bases. No demonstrated pulmonary infiltrate. 3. Small hiatal hernia. Electronically Signed: Bandar Agustin MD at 7:49 EDT Reading Location ID and State: [facility] / [place] , Service support , EKG Initial EKG: Interpretation: Sinus Rhythm (Sinus 87 with sinus arrhythmia. No acute ischemia.) Treatment and Re-Evaluation Narrative: On repeat evaluation patient resting comfortably. O2 sats have been in the 90s throughout her ED stay. CBC is unremarkable. Chemistry studies normal. Troponin normal. D-dimer is normal. Chest x-ray per my interpretation shows chronic changes. Radiology is concerned there may be a retrocardiac infiltrate. In light of the fact that she is on chemotherapy I will obtain a CT chest to further evaluate this. It certainly does not have the typical appearance of COVID viral pneumonia if there is a retrocardiac infiltrate. Patient and did question possibly being admitted for the infusion the doctor Maritza was hoping to set up for her. I did explain to them that if she is admitted she is no longer a candidate for this infusion and they voiced understanding and agreement. CT result be signed out to oncoming physician for final disposition. I anticipate she will be able to be discharged to home. <Dr. Alejo Guajardo MD - Last Filed: 11/07/21 07:57> [facility] Lab Data Labs: Laboratory Results - last 24 hr 11/07/21 11/07/21 11/07/21 06:00 06:00 06:00 WBC 5.9 RBC 3.83 L Hgb 11.9 L Hct 35.4 L MCV 92.4 MCH 31.1 MCHC 33.6 RDW Std Deviation 47.5 H RDW Coeff of Vazquez 13.9 Plt Count 242 MPV 10.1 Immature Gran % (Auto) 0.700 Neut % (Auto) 63.3 Lymph % (Auto) 10.5 L [place] % (Auto) 23.8 H Eos % (Auto) 0.7 Baso % (Auto) 1.0 Absolute Neuts (auto) 3.7 Absolute Lymphs (auto) 0.62 L Nucleated RBC % 0 D-Dimer Quant (PE/DVT) 0.36 Sodium 133 L Potassium 3.7 Chloride 99 Carbon Dioxide 24.0 Anion Gap 10 BUN 11 Creatinine 1.03 H Estim Creat Clear Calc 33.38 Est GFR (MDRD) Af Amer 67 Est GFR (MDRD) Non-Af 55 L BUN/Creatinine Ratio 10.7 Glucose 100 Calcium 8.7 Troponin I High Sens 13 Radiography Diagnostic Testing: Clinical Impression(s) from Imaging Studies Chest X-Ray 11/07/21 06:10 IMPRESSION: Suspect retrocardiac left lower lobe infiltrate. Electronically Signed: Bandar Agustin MD at 6:41 EDT , Chest CT 11/07/21 06:43 IMPRESSION: 1. Mild atherosclerosis. 2. Mild atelectasis in the posterior lungs and lung bases. No demonstrated pulmonary infiltrate. 3. Small hiatal hernia. Electronically Signed: Bandar Agustin MD at 7:49 EDT , Treatment and Re-Evaluation Narrative: On repeat evaluation patient resting comfortably. O2 sats have been in the 90s throughout her ED stay. CBC is unremarkable. Chemistry studies normal. Troponin normal. D-dimer is normal. Chest x-ray per my interpretation shows chronic changes. Radiology is concerned there may be a retrocardiac infiltrate. In light of the fact that she is on chemotherapy I will obtain a CT chest to further evaluate this. It certainly does not have the typical appearance of COVID viral pneumonia if there is a retrocardiac infiltrate. Patient and did question possibly being admitted for the infusion the doctor Maritza was hoping to set up for her. I did explain to them that if she is admitted she is no longer a candidate for this infusion and they voiced understanding and agreement. CT result be signed out to oncoming physician for final disposition. I anticipate she will be able to be discharged to home. Cornici-patient was turned over to me. CT is normal. Patient is able to ambulate around the emergency department without significant difficulty or desaturating. She appears well, there is no pneumonia on CT I believe she can be safely discharged home. She can follow-up with PCP. Discharge Plan Triage Chief Complaint: Shortness of Breath ED Provider: Shawna Jimenez Dx/Rx/DC Orders Clinical Impression: COVID-19, Acute dyspnea Instructions: Coronavirus Disease 2019 (COVID-19): Overview, Coronavirus Disease 2019 (COVID-19): Caring for Yourself or Others Prescriptions: No Action allopurinol 100 mg tablet 100 mg PO DAILY cetirizine 10 mg tablet 10 mg PO DAILY PRN (Reason: ALLERGIES) escitalopram oxalate [Lexapro] 10 mg tablet 10 mg PO DAILY hydrochlorothiazide 25 mg tablet 25 mg PO DAILY ibrutinib 140 mg tablet 280 mg PO DAILY levothyroxine 137 mcg tablet 137 mcg PO DAILY losartan 100 mg tablet 100 mg PO DAILY pantoprazole 40 mg tablet,delayed release (DR/EC) 40 mg PO BID Plexus Nerve 1 cap PO/SL DAILY Primary Care Provider: Jane Baig NP Referrals: Jane Baig NP, [facility] [Primary Care Provider] -
[2021-11-07 06:05] LABS: Absolute Lymphocyte Count 0.62 X10^3/uL (0.83-4.51); Absolute Neutrophil Count 3.7 X10^3/uL (2.0-7.7); Basophil# 0.06 X10^3/uL; Eosinophil# 0.04 X10^3/uL; Eosinophils% 0.7 % (0-5); Hematocrit 35.4 % (37-47); Hemoglobin 11.9 g/dL (12.0-15.0); Lymphocyte # 0.62 X10^3/ul (0.83-4.51); Lymphocyte % 10.5 % (19-41); Mean Corp Hgb Conc 33.6 g/dL (32-36); Mean Corpuscular Hgb 31.1 pg (27.0-32.0); Mean Corpuscular Volume 92.4 fL (81-99); Mean Platelet Vol. 10.1 fl (6.2-12.0); Monocyte% 23.8 % (0-10); NRBC Flagged by Analyzer 0 % (0-5); Neutrophil # 3.73 X10^3/uL (2.7-7.7); Neutrophil % 63.3 % (47-70); Platelet Count 242 K/mm3 (150-450); RBC Distribution Width CV 13.9 % (11.6-14.6); RBC Distribution Width SD 47.5 fl (35.1-43.9); Red Blood Count 3.83 M/mm3 (4.2-5.4); White Blood Count 5.9 K/mm3 (4.4-11.0)
[2021-11-07] MEDS: 0.9% Normal Saline 1,000 ML 150 ML IV (06:07)
[2021-11-07] MEDS: Acetaminophen 500 MG Tablet 1000 MG PO (06:08)
--- NOTE | 2021-11-07 06:10 | RAD_ITS ---
EXAM: XR CHEST, 1 VIEW CLINICAL INDICATION: sob sob TECHNIQUE: Frontal view of the chest. This report was created using [employer] report generation technology. COMPARISON: Chest x-ray 03/07/2012. FINDINGS: LUNGS AND PLEURAL SPACES: There is increased density overlying the heart with partial obscuration of the medial dome of left hemidiaphragm, suspicious for retrocardiac left lower lobe pneumonia. No pneumothorax. No effusion. HEART: Unremarkable. Cardiac silhouette not enlarged. MEDIASTINUM: Central airways and mediastinal contour are unremarkable. BONES/JOINTS: There are multilevel degenerative changes in the visualized spine. There are postsurgical changes of the visualized cervical spine. SOFT TISSUES: Unremarkable. VASCULATURE: There is atherosclerotic calcification of the aortic arch. RAD/Chest 1 View (Portable) IMPRESSION: Suspect retrocardiac left lower lobe infiltrate. Electronically Signed: Bandar Agustin MD at 6:41 EDT Reading Location ID and State: [facility] / [place] , Service support ,
[2021-11-07 06:16] LABS: D-Dimer Quantitative (DVT/PE) 0.36 FEU/ug/m (0.27-0.49)
[2021-11-07 06:25] LABS: Anion Gap 10 (5-15); BUN 11 mg/dL (7-18); BUN/Creat Ratio 10.7 RATIO (10-20); Calcium,Total 8.7 mg/dL (8.5-10.1); Chloride 99 mmol/L (98-107); Creatinine, Serum 1.03 mg/dL (0.55-1.02); EST Glomerular Filtration Rate 55 mL/min (>60); Est Glom Filt Rate - Afr Amer 67 mL/min (>60); Estimated Creatinine Clearance 33.38 ml/min; Glucose 100 mg/dL (74-106); Potassium 3.7 mmol/L (3.5-5.1); Sodium Level 133 mmol/L (136-145); Troponin-I HS 13 pg/mL (3.0-54.0)
--- NOTE | 2021-11-07 06:43 | CT_ITS ---
EXAM: CT CHEST WITHOUT INTRAVENOUS CONTRAST CLINICAL INDICATION: sob, covid, ? retrocardiac infiltrate on cxr sob, covid, ? retrocardiac infiltrate on cxr TECHNIQUE: Helically acquired images were obtained of the chest without intravenous contrast. This CT exam was performed using one or more of the following dose reduction techniques: automated exposure control, adjustment of the mA and/or kV according to patient size, and/or use of iterative reconstruction technique. This report was created using [employer] report generation technology. RADIATION DOSE: CTDIvol = 13.43 mGy, DLP = 449.02 mGy-cm COMPARISON: Chest x-ray 11/07/2021. CTA chest 05/16/2021. CT scan chest 03/07/2012 FINDINGS: LUNGS AND PLEURAL SPACES: There is mild atelectasis in the posterior lungs and lung bases bilaterally. There is no demonstrated pulmonary infiltrate. No mass. No pleural effusion or thickening. No pneumothorax. HEART: Unremarkable. Heart size is normal. No pericardial effusion. No significant coronary artery calcifications. MEDIASTINUM: There is a small hiatal hernia. No mediastinal or hilar adenopathy. Esophagus is unremarkable. THYROID: Unremarkable. No thyroid lesions. BONES/JOINTS: There are postsurgical changes in this visualized lower cervical spine. There are multilevel degenerative changes in the visualized spine. No suspicious lytic or blastic abnormality. SOFT TISSUES: w there is a 3.2 cm cyst in right anterior epicardial fat which has not increased in size since 2013 exam. VASCULATURE: There is atherosclerotic calcification of the thoracic aorta and great vessels. Thoracic aorta is non-dilated. CT/Chest without Contrast IMPRESSION: 1. Mild atherosclerosis. 2. Mild atelectasis in the posterior lungs and lung bases. No demonstrated pulmonary infiltrate. 3. Small hiatal hernia. Electronically Signed: Bandar Agustin MD at 7:49 EDT ,
[2021-11-07 08:02] VITALS: O2SAT 94
[2021-11-07 08:11] VITALS: BP 138/72; PULSE 74; RESP 16; O2SAT 95
== END 2021-11-07 08:12 | disposition home or self-care (01) ==
LOC: ED 06:50
PROVIDERS: Emergency Provider Emergency Medicine; PCP Registered Nurse; Visit Provider Emergency Medicine
DX: U07.1 COVID-19 (principal); C91.10 Chronic lymphocytic leukemia of B-cell type not having achieved remission; M06.9 Rheumatoid arthritis, unspecified; N18.30 Chronic kidney disease, stage 3 unspecified; N39.0 Urinary tract infection, site not specified; R11.2 Nausea with vomiting, unspecified; R55 Syncope and collapse; R06.00 Dyspnea, unspecified; R53.1 Weakness; I12.9 Hypertensive chronic kidney disease with stage 1 through stage 4 chronic kidney disease, or unspecified chronic kidney disease; M16.11 Unilateral primary osteoarthritis, right hip; E78.2 Mixed hyperlipidemia; E03.9 Hypothyroidism, unspecified; K21.9 Gastro-esophageal reflux disease without esophagitis; H92.01 Otalgia, right ear; Z79.890 Hormone replacement therapy; Z79.899 Other long term (current) drug therapy; Z87.891 Personal history of nicotine dependence
CPT/HCPCS: 71045; 71250; 80048; 81001; 84484; 85025; 85379; 87077; 87086; 87088; 87186; 93005; 96360; 96361; 99285; J7030; A4216

== ENCOUNTER 2021-11-07 19:22 | Emergency (ER) | payer MEDICARE, OTHER, SELFPAY ==
[2021-11-07 19:23] VITALS: BP 102/61; PULSE 74; RESP 15; TEMP 36.2; O2SAT 94; BMI 32.2
--- NOTE | 2021-11-07 20:56 | EDS_ITS ---
HPI History of Present Illness Chief Complaint: Syncope Narrative Narrative: 76-year-old female presenting today after an episode of syncope. She was seen this morning as she tested positive for COVID 19. She states she received the flu shot on Saturday and thought maybe she was having some general weakness from her flu shot. She states that on Saturday she started to feel that she had come down with something. She tested positive for COVID on Saturday. She is currently on chemotherapy for CLL with Dr. Salas. After contacting her oncologist she was not eligible for PAX loaded. She had blood work done earlier which is all normal. She had a chest x-ray which showed a possible pneumonia however CT of the chest was done which did not show pneumonia. Patient was ultimately sent home. The patient's states that she was able to get up to try to go to the restroom and while she was walking he states he was assisting her with his arm and he states he became heavy and started to go down he was able to stop her from completely falling. She brushed against the wall o n her way down. He states he was unconscious for a couple of minutes he believes. He states the lowest pulse ox he has had at home was 92. She is using her incentive spirometer. [facility] Medical History Cancer CKD (chronic kidney disease) stage 3, GFR 30-59 ml/min CLL (chronic lymphocytic leukemia) Depression Former smoker GERD (gastroesophageal reflux disease) History of chest pain History of syncope HTN (hypertension) Hypothyroidism Mixed hyperlipidemia Non-smoker Osteoporosis Primary osteoarthritis of right hip Rheumatoid arthritis Sinus bradycardia Home Medications allopurinol 100 mg tablet 100 mg PO DAILY 06/27/21 [History Last Taken 08/31/21] cetirizine 10 mg tablet 10 mg PO DAILY PRN ALLERGIES 06/27/21 [History Last Taken 08/30/21] escitalopram oxalate 10 mg tablet (Lexapro) 10 mg PO DAILY 06/27/21 [History Last Taken 08/31/21] hydrochlorothiazide 25 mg tablet 25 mg PO DAILY 06/27/21 [History Last Taken 08/31/21] ibrutinib 140 mg tablet 280 mg PO DAILY 06/28/21 [History Last Taken 08/31/21] levothyroxine 137 mcg tablet 137 mcg PO DAILY 06/28/21 [History Last Taken 08/31/21] losartan 100 mg tablet 100 mg PO DAILY 06/28/21 [History Last Taken 08/30/21] pantoprazole 40 mg tablet,delayed release 40 mg PO BID GERD 06/28/21 [History Last Taken 08/31/21] Plexus Nerve 1 cap PO/SL DAILY SUPPLEMENT 08/31/21 [History Last Taken 08/31/21] allopurinol 100 mg tablet 100 mg PO DAILY 11/07/21 [History Last Taken Unknown] Allergy/AdvReac Type Severity Reaction Status Date / Time codeine Allergy Unknown Rash Verified 11/07/21 05:46 fentanyl Allergy Unknown Rash Verified 11/07/21 05:46 meloxicam Allergy Unknown Rash Verified 11/07/21 05:46 midazolam [From Versed] Allergy Unknown Rash Verified 11/07/21 05:46 oxycodone Allergy Unknown Hives Verified 11/07/21 05:46 pramipexole [From Mirapex] Allergy Unknown Rash Verified 11/07/21 05:46 amoxicillin Allergy Rash Verified 11/07/21 05:46 Penicillins [PCN] Allergy Rash Verified 11/07/21 05:46 Sulfa (Sulfonamide Allergy Rash Verified 11/07/21 05:46 Antibiotics) tramadol [From Ultram] Allergy Other Verified 11/07/21 05:46 cephalexin [From Keflex] AdvReac Unknown Unknown Verified 11/07/21 05:46 doxycycline AdvReac Unknown GI Upset Verified 11/07/21 05:46 ezetimibe [From Zetia] AdvReac Unknown Unknown Verified 11/07/21 05:46 lisinopril AdvReac Unknown Cough Verified 11/07/21 05:46 pregabalin [From Lyrica] AdvReac Unknown Mental Verified 11/07/21 05:46 Status Change trazodone AdvReac Unknown Mental Verified 11/07/21 05:46 Status Change adhesive AdvReac Rash Verified 11/07/21 05:46 Family History Mother CVA (cerebral vascular accident) Hypertension Father Heart disease Hypertension Sister Cancer Colon Grandmother Diabetes Sister Thyroid disorder Surgical History History of foot surgery History of lumbar laminectomy History of total hysterectomy History of total replacement of both hip joints Previous back surgery Social History household members: none Smoking Status: Former smoker alcohol intake: never substance use type: does not use ROS ROS ED Constitutional Constitutional ED: Reports chills, fever(s) and other Details: Generalized weakness and syncopal episode ENT ENT ED: Denies rhinorrhea or sore throat Cardiovascular Cardiovascular: Denies chest pain Respiratory/Chest Respiratory/Chest: Denies cough or dyspnea Gastrointestinal Gastrointestinal: Denies abdominal pain or constipation Genitourinary Genitourinary ED: Denies dysuria or hematuria Musculoskeletal Musculoskeletal: Denies arthralgias Integumentary Denies abscess or Abrasions Neurologic Neurologic: Denies headache(s) or paresthesias Psychiatric Psychiatric: Denies anxiety or depression EXAM Physical Exam Const Vital Signs: 11/07/21 19:23 11/07/21 20:29 11/07/21 22:01 Temperature 97.1 F L Temperature Source Temporal Pulse Rate 74 Pulse Rate [Lying] 68 Pulse Rate [Sitting (for 1 minute prior to obtaining)] 70 Pulse Rate [Standing (for 1 minute prior to obtaining)] 79 Respiratory Rate 15 Respiratory Effort Normal Respiratory Pattern Normal Blood Pressure 102/61 Blood Pressure [Lying] 137/65 H Blood Pressure [Sitting (for 1 minute prior to obtaining)] 135/70 H Blood Pressure [Standing (for 1 minute prior to obtaining)] 120/81 H Blood Pressure Mean 74 Blood Pressure Mean [Lying] 89 Blood Pressure Mean [Sitting (for 1 minute prior to obtaining)] 91 Blood Pressure Mean [Standing (for 1 minute prior to obtaining)] 94 Pulse Ox 94 Oxygen Delivery Method Room Air 11/07/21 22:42 Temperature Temperature Source Pulse Rate 75 Pulse Rate [Lying] Pulse Rate [Sitting (for 1 minute prior to obtaining)] Pulse Rate [Standing (for 1 minute prior to obtaining)] Respiratory Rate 19 H Respiratory Effort Respiratory Pattern Blood Pressure 151/82 H Blood Pressure [Lying] Blood Pressure [Sitting (for 1 minute prior to obtaining)] Blood Pressure [Standing (for 1 minute prior to obtaining)] Blood Pressure Mean 105 Blood Pressure Mean [Lying] Blood Pressure Mean [Sitting (for 1 minute prior to obtaining)] Blood Pressure Mean [Standing (for 1 minute prior to obtaining)] Pulse Ox 96 Oxygen Delivery Method Room Air Positive well nourished General Appearance ED: NAD; Negative for pallor HEENT Reports moist mucous membranes Negative for trauma Eyes PERRL and EOMs intact bilaterally General Eye ED: Negative for pale conjunctiva or scleral icterus Chest Wall inspection of chest normal Resp normal respiratory effort and clear to auscultation bilaterally Auscultation: Negative for rales, rhonchi or wheezes Cardio regular rate and regular rhythm GI normal to inspection, nondistended, normoactive bowel sounds Neuro oriented x3 and CN's II-XII intact bilaterally Sensorium / Orientation: alert Psych mental status grossly normal Skin no rashes or lesions noted and no wounds General Skin Exam: Negative for jaundice or pallor MDM MDM MDM Narrative Medical decision making narrative: Lab work was reviewed from earlier. This was all within normal limits. An EKG was obtained which shows a normal sinus rhythm with a ventricular rate of 69 bpm without sign of ischemic change. Repeat chest x-ray on my interpretation shows no acute cardiopulmonary process and the radiologist does agree. Orthostatic vital signs within normal limits. Patient ambulated on pulse ox and does not desaturate and actually started at 93% and ended at 94%. Patient did complain of urinary frequency and I did check a urinalysis which shows positive nitrites, 500 leukocyte esterase, 50-100 white blood cells and 4+ bacteria. This will be sent for culture. Had a long discussion with the patient's family who felt that they could care for her and give her antibiotics. She requested something for nausea for home. They do report that she has been able to eat today and had some tuna and noodles as well as tapioca pudding. She has been drinking fluids. Patient started on Keflex with first dose in the ER. She was given Zofran as well. She will be given Zofran for home. Return precautions discussed. Impression: 1. Syncope 2. Generalized weakness 3. COVID-19 4. UTI Lab Data Attestation: I reviewed the patient's lab results. Labs: Laboratory Results - last 24 hr 11/07/21 11/07/21 21:30 21:55 Troponin I High Sens 18 Urine Color Yellow Urine Clarity Sl. Cloudy Urine pH 6.0 Ur Specific D Lo 1.015 Urine Protein 30 H Urine Glucose (UA) Normal Urine Ketones Negative Urine Occult Blood 10 H Urine Nitrite Positive H Urine Bilirubin Negative Urine Urobilinogen Normal Ur Leukocyte Esterase 500 H Urine RBC 0-5 SEEN Urine WBC 50-100 SEEN Ur Squamous Epith Cells 0-5 SEEN Urine Bacteria 4+ Urine Mucus 0 SEEN Radiography Diagnostic Testing: Clinical Impression(s) from Imaging Studies Chest X-Ray 11/07/21 21:24 IMPRESSION: There are no acute findings. Electronically Signed: Sarwat Solis MD at 21:43 EDT , Discharge Plan Triage Chief Complaint: Syncope ED Provider: Daren Livingston Dx/Rx/DC Orders Prescriptions: No Action allopurinol 100 mg tablet 100 mg PO DAILY cetirizine 10 mg tablet 10 mg PO DAILY PRN (Reason: ALLERGIES) escitalopram oxalate [Lexapro] 10 mg tablet 10 mg PO DAILY hydrochlorothiazide 25 mg tablet 25 mg PO DAILY ibrutinib 140 mg tablet 280 mg PO DAILY levothyroxine 137 mcg tablet 137 mcg PO DAILY losartan 100 mg tablet 100 mg PO DAILY pantoprazole 40 mg tablet,delayed release (DR/EC) 40 mg PO BID Plexus Nerve 1 cap PO/SL DAILY allopurinol 100 mg tablet 100 mg PO DAILY Primary Care Provider: Jane Baig NP Referrals: Jane Baig NP, [employer] [Primary Care Provider] -
--- NOTE | 2021-11-07 20:56 | EKG12_ITS ---
Test Reason : DYSRHYTHMIA Blood Pressure : / mmHG Vent. Rate : 069 BPM Atrial Rate : 069 BPM P-R Int : 132 ms QRS Dur : 092 ms QT Int : 402 ms P-R-T Axes : 027 014 039 degrees QTc Int : 430 ms Normal sinus rhythm with sinus arrhythmia Normal ECG Confirmed by SATISH HOLMAN, BLAKE ([id number]), food expeditor KERRY MARIN ([id number]) on 11/08/2021 2:05:11 PM Referred By: BACILIO Confirmed By:BLAKE COVARRUBIAS MD
--- NOTE | 2021-11-07 21:24 | RAD_ITS ---
STUDY: X-RAY CHEST REASON FOR EXAM: Female, 76 years old. cough TECHNIQUE: XR Chest 1 View COMPARISON: Study done earlier today. FINDINGS: There is no demonstrated pleural abnormality. Cervical spine fusion hardware noted. Normal size heart. Normal mediastinum and samia. Normal visualized pulmonary arteries. There is atherosclerotic calcification of the aortic arch with tortuosity. There are diffuse degenerative changes of the visualized thoracic spine. There is degenerative osteoarthritis of the bilateral shoulders. There is no demonstrated abnormality of the visualized soft tissue structures of the upper abdomen. RAD/Chest 1 View (Portable) IMPRESSION: There are no acute findings. Electronically Signed: Sarwat Solis MD at 21:43 EDT ,
[2021-11-07 21:39] LABS: Mucous, Urine 0 SEEN /hpf (<or=2+)
[2021-11-07 21:42] LABS: Color, Urine Yellow (Yellow); Glucose, Dipstick Normal (Normal); Ketone-Dipstick Negative (Negative); Leukocyte Esterase-Dipstick 500 /ul (Negative); Nitrite-Dipstick Positive (Negative); Occult Blood-Urine 10 /ul (Negative); Protein-Dipstick 30 mg/dl (Negative); Specific Gravity, Urine 1.015 (1.002-1.030); Urine Bilirubin Dipstick Negative (Negative); Urine Clarity Sl. Cloudy (Clear); Urine Urobilinogen Normal (Normal)
[2021-11-07 21:49] LABS: Bacteria 4+ /hpf (None Seen); Red Blood Cells-Urine 0-5 SEEN /hpf (0-5); Squamous Epithelial Cells - UA 0-5 SEEN /hpf (5-10); White Blood Cells 50-100 SEEN /hpf (0-5)
[2021-11-07 22:01] VITALS: BP 120/81; BP 135/70; BP 137/65; PULSE 68; PULSE 70; PULSE 79
[2021-11-07 22:09] VITALS: O2SAT 93
[2021-11-07 22:31] LABS: Troponin-I HS 18 pg/mL (3.0-54.0)
[2021-11-07] MEDS: Ondansetron ODT 4 MG Tablet PO (22:41)
[2021-11-07] MEDS: Cephalexin 250 MG Capsule 500 MG PO (22:41)
[2021-11-07 22:42] VITALS: BP 151/82; PULSE 75; RESP 19; O2SAT 96
[2021-11-07 23:09] VITALS: BP 135/80; PULSE 74; RESP 16; O2SAT 95
== END 2021-11-07 23:10 | disposition home or self-care (01) ==
PROVIDERS: Emergency Provider Student in an Organized Health Care Education/Training Program; PCP Registered Nurse; Visit Provider Student in an Organized Health Care Education/Training Program
DX: R55 Syncope and collapse (principal); C91.10 Chronic lymphocytic leukemia of B-cell type not having achieved remission; N18.30 Chronic kidney disease, stage 3 unspecified; N39.0 Urinary tract infection, site not specified; U07.1 COVID-19; R53.1 Weakness; I12.9 Hypertensive chronic kidney disease with stage 1 through stage 4 chronic kidney disease, or unspecified chronic kidney disease; M16.11 Unilateral primary osteoarthritis, right hip; E78.2 Mixed hyperlipidemia; E03.9 Hypothyroidism, unspecified; F32.A Depression, unspecified; Z79.890 Hormone replacement therapy; Z79.899 Other long term (current) drug therapy; Z87.891 Personal history of nicotine dependence; Z96.643 Presence of artificial hip joint, bilateral
CPT/HCPCS: 71045; 81001; 84484; 87086; 93005

== ENCOUNTER 2021-11-08 14:51 | Outpatient (CLI) | payer MEDICARE, OTHER, SELFPAY ==
[2021-11-08 15:32] VITALS: BP 113/58; PULSE 85; RESP 20; TEMP 36.8; O2SAT 96; BMI 32.2
[2021-11-08] MEDS: 0.9% Saline Lock 10 ML Syringe IV ×2 (15:40→15:45)
[2021-11-08] MEDS: BEBTELOVIMAB 175 MG/2 ML VIAL IV (15:42)
[2021-11-08 16:14] VITALS: BP 154/62; PULSE 66; RESP 18; TEMP 36.4; O2SAT 95
[2021-11-08 16:37] VITALS: BP 148/51; PULSE 62; RESP 18; TEMP 36.6; O2SAT 97
== END 2021-11-08 16:42 | disposition home or self-care (01) ==
LOC: MS3OUT 14:51 → MS2 14:59
PROVIDERS: PCP Registered Nurse; Referring Provider Nurse Practitioner Adult Health; Visit Provider Nurse Practitioner Adult Health
DX: U07.1 COVID-19 (principal)
CPT/HCPCS: M0222; Q0222; A4216

== ENCOUNTER 2022-05-27 04:47 | Emergency (ER) | payer MEDICARE, OTHER, SELFPAY ==
[2022-05-27 04:48] VITALS: BP 133/58; PULSE 72; RESP 16; TEMP 37.1; O2SAT 95; BMI 37.8
--- NOTE | 2022-05-27 05:30 | RAD_ITS ---
INDICATION: constipation EXAMINATION/TECHNIQUE: X-RAY - 2 XR Abdomen 1 View COMPARISON: FINDINGS: BOWEL GAS PATTERN: There is a large fecal residue in the colon.. No bowel or stomach distention. FREE AIR: Not assessed on a single supine view. ORGANOMEGALY: Not seen. CALCIFICATIONS: No abnormal calcifications observed. LOWER CHEST: No acute pathology. BONES AND SOFT TISSUES: No acute pathology. RAD/Abdomen Single View (Portable) IMPRESSION: There is a large fecal residue in the colon. Electronically Signed: Carlos Orozco MD at 5:54 EDT ,
[2022-05-27] MEDS: Fleet Enema 1 ML RC (07:07)
--- NOTE | 2022-05-27 07:09 | EX.ED.DYSGE1 ---
HPI History of Present Illness Chief Complaint: Constipation Informant: patient and spouse/S.O. Narrative Narrative: Patient is a 76-year-old female with past medical history of chronic kidney disease CLL and hypertension. Approximately 6 days ago she underwent a left knee replacement. Following the replacement patient was given IV morphine and then discharged home on oxycodone. Patient states that she typically has a bowel movement once a day but has not had a bowel for approximately 1 week as she did not have 1 on the Saturday prior to her surgery on Saturday. She has been maintaining hydration and taking senna but despite that has not had a bowel movement and is having some lower back and abdominal pain and is concerned for constipation and therefore comes in for evaluation [facility] Medical History Cancer CKD (chronic kidney disease) stage 3, GFR 30-59 ml/min CLL (chronic lymphocytic leukemia) Depression Former smoker GERD (gastroesophageal reflux disease) History of chest pain History of syncope HTN (hypertension) Hypothyroidism Mixed hyperlipidemia Non-smoker Osteoporosis Primary osteoarthritis of right hip Rheumatoid arthritis Sinus bradycardia Home Medications allopurinol 100 mg tablet 100 mg PO DAILY 06/27/21 [History Last Taken 08/31/21] cetirizine 10 mg tablet 10 mg PO DAILY PRN ALLERGIES 06/27/21 [History Last Taken 08/30/21] escitalopram oxalate 10 mg tablet (Lexapro) 10 mg PO DAILY 06/27/21 [History Last Taken 08/31/21] hydrochlorothiazide 25 mg tablet 25 mg PO DAILY 06/27/21 [History Last Taken 08/31/21] ibrutinib 140 mg tablet 280 mg PO DAILY 06/28/21 [History Last Taken 08/31/21] levothyroxine 137 mcg tablet 137 mcg PO DAILY 06/28/21 [History Last Taken 08/31/21] losartan 100 mg tablet 100 mg PO DAILY 06/28/21 [History Last Taken 08/30/21] pantoprazole 40 mg tablet,delayed release 40 mg PO BID GERD 06/28/21 [History Last Taken 08/31/21] Plexus Nerve 2 cap PO/SL DAILY SUPPLEMENT 08/31/21 [History Last Taken 08/31/21] ondansetron 4 mg disintegrating tablet 4 mg PO Q8H PRN nausea and vomiting #14 tabs 09/13/22 [Rx Last Taken Unknown] cephalexin 500 mg capsule 500 mg PO Q12 #14 caps 11/08/21 [Rx Last Taken Unknown] Allergy/AdvReac Type Severity Reaction Status Date / Time codeine Allergy Unknown Rash Verified 05/27/22 04:51 fentanyl Allergy Unknown Rash Verified 05/27/22 04:51 meloxicam Allergy Unknown Rash Verified 05/27/22 04:51 midazolam [From Versed] Allergy Unknown Rash Verified 05/27/22 04:51 oxycodone Allergy Unknown Hives Verified 05/27/22 04:51 pramipexole [From Mirapex] Allergy Unknown Rash Verified 05/27/22 04:51 amoxicillin Allergy Rash Verified 05/27/22 04:51 Penicillins [PCN] Allergy Rash Verified 05/27/22 04:51 Sulfa (Sulfonamide Allergy Rash Verified 05/27/22 04:51 Antibiotics) tramadol [From Ultram] Allergy Other Verified 05/27/22 04:51 cephalexin [From Keflex] AdvReac Unknown Unknown Verified 05/27/22 04:51 doxycycline AdvReac Unknown GI Upset Verified 05/27/22 04:51 ezetimibe [From Zetia] AdvReac Unknown Unknown Verified 05/27/22 04:51 lisinopril AdvReac Unknown Cough Verified 05/27/22 04:51 pregabalin [From Lyrica] AdvReac Unknown Mental Verified 05/27/22 04:51 Status Change trazodone AdvReac Unknown Mental Verified 05/27/22 04:51 Status Change adhesive AdvReac Rash Verified 05/27/22 04:51 Family History Mother CVA (cerebral vascular accident) Hypertension Father Heart disease Hypertension Sister Cancer Colon Grandmother Diabetes Sister Thyroid disorder Surgical History History of foot surgery History of lumbar laminectomy History of total hysterectomy History of total replacement of both hip joints Previous back surgery Social History household members: none Smoking Status: Former smoker alcohol intake: never substance use type: does not use ROS ROS ED Constitutional Constitutional ED: Denies chills or fever(s) ENT ENT ED: Denies sore throat Cardiovascular Cardiovascular: Denies chest pain Respiratory/Chest Respiratory/Chest: Denies cough or dyspnea Gastrointestinal Gastrointestinal: Reports abdominal pain and constipation; Denies diarrhea, nausea or vomiting Genitourinary Genitourinary ED: Denies dysuria Musculoskeletal Musculoskeletal: Reports back pain and other Details: Positive left knee pain ; Denies myalgias Integumentary Denies rash Neurologic Neurologic: Denies headache(s) Hematologic/Lymphatic Hematologic/Lymphatic: Denies easy bleeding or easy bruising EXAM Physical Exam Const Vital Signs: 05/27/22 04:48 Temperature 98.7 F Temperature Source Oral Pulse Rate 72 Respiratory Rate 16 Blood Pressure 133/58 H Blood Pressure Mean 83 Pulse Ox 95 Oxygen Delivery Method Room Air Positive well nourished and well developed General Appearance ED: well developed HEENT Reports moist mucous membranes Eyes PERRL and EOMs intact bilaterally General Eye ED: Negative for scleral icterus Neck supple Resp normal respiratory effort and clear to auscultation bilaterally Cardio regular rate and regular rhythm GI non-distended GI Narrative: Abdomen is soft and nondistended with normal active bowel sounds. There is mild pain with palpation in the mid to left side lower abdomen without voluntary guarding or rigidity. No organomegaly. No pulsatile mass or fluid wave Auscultation: normoactive bowel sounds Palpation: soft Back/Spine Back/Spine Narrative: No bony deformity or step-off of the thoracic or lumbar spine no midline pain on palpation Extremity Extremity Narrative: Let me is swollen and ecchymotic consistent with recent knee replacement surgery. Wound is clean dry and intact without secondary changes to suggest infection Neuro oriented x3 and CN's II-XII intact bilaterally Sensorium / Orientation: alert Psych mental status grossly normal Skin skin turgor normal Skin Narrative: Soft tissue changes to the left knee as documented above General Skin Exam: Negative for jaundice MDM MDM MDM Narrative Medical decision making narrative: Patient presented to the ER with stable vitals and a soft nonsurgical abdomen. She does report knee pain but as she is 6 days postop this is to be expected and her knee looks appropriate for this stage. Her abdomen is soft and nonsurgical and as she has been given morphine as well as oxycodone most likely diagnosis is opioid related constipation versus some type of obstruction or ileus. Therefore at this time only felt need for a KUB to confirm constipation. X-ray did confirm this and she was given a fleets enema and was able to pass a large bowel movement. Therefore at this time as patient's had resolution of her constipation and exam and imaging studies do not show changes to suggest volvulus ileus or acute obstruction she is otherwise safe for discharge History & Record Review Discussion w/independent historian: Patient and Family Radiography Diagnostic Testing: Clinical Impression(s) from Imaging Studies KUB X-Ray 05/27/22 05:30 IMPRESSION: There is a large fecal residue in the colon. Electronically Signed: Carlos Orozco MD at 5:54 EDT , KUB as interpreted by the emergency medicine physician reveals nonspecific nonobstructive bowel gas pattern with large fecal residue in the colon consistent with constipation Discharge Plan Triage Chief Complaint: Constipation ED Provider: Adam Iverson Dx/Rx/DC Orders Clinical Impression: Acute constipation, CKD (chronic kidney disease) stage 3, GFR 30-59 ml/min, Essential hypertension, CLL (chronic lymphocytic leukemia) Instructions: ED Constipation (Adult) Prescriptions: No Action allopurinol 100 mg tablet 100 mg PO DAILY cetirizine 10 mg tablet 10 mg PO DAILY PRN (Reason: ALLERGIES) escitalopram oxalate [Lexapro] 10 mg tablet 10 mg PO DAILY hydrochlorothiazide 25 mg tablet 25 mg PO DAILY ibrutinib 140 mg tablet 280 mg PO DAILY levothyroxine 137 mcg tablet 137 mcg PO DAILY losartan 100 mg tablet 100 mg PO DAILY pantoprazole 40 mg tablet,delayed release (DR/EC) 40 mg PO BID Plexus Nerve 2 cap PO/SL DAILY ondansetron 4 mg tablet,disintegrating 4 mg PO Q8H PRN (Reason: nausea and vomiting) Qty: 14 0RF cephalexin 500 mg capsule 500 mg PO Q12 Qty: 14 0RF Primary Care Provider: Jane Baig NP Referrals: Jane Baig NP, [employer] [Primary Care Provider] - Activity Restrictions/Additional Instructions: Please begin taking MiraLAX twice a day and keep yourself well-hydrated you may continue your senna as well. This will help prevent recurrent constipation. If you start developing liquidy stools then you will need to reduce the MiraLAX to only once a day. Please continue your oxycodone secondary to your recent knee surgery but I do feel narcotics were the cause of your constipation. By doing the above bowel regiment with hydration MiraLAX twice a day and senna this should prevent any recurrent episodes. If you have any further concerns return for repeat evaluation Disposition Disposition: Home, Self Care
[2022-05-27 07:18] VITALS: BP 139/84; PULSE 72; RESP 16; O2SAT 98
== END 2022-05-27 07:21 | disposition home or self-care (01) ==
PROVIDERS: Emergency Provider Emergency Medicine; PCP Registered Nurse; Visit Provider Emergency Medicine
DX: K59.00 Constipation, unspecified (principal); C91.10 Chronic lymphocytic leukemia of B-cell type not having achieved remission; N18.30 Chronic kidney disease, stage 3 unspecified; Z87.891 Personal history of nicotine dependence; E78.2 Mixed hyperlipidemia; I12.9 Hypertensive chronic kidney disease with stage 1 through stage 4 chronic kidney disease, or unspecified chronic kidney disease; Z96.652 Presence of left artificial knee joint
CPT/HCPCS: 74018; 99284

== ENCOUNTER 2022-06-29 11:30 | Emergency (ER) | payer MEDICARE, OTHER, SELFPAY ==
[2022-06-29 11:31] VITALS: BP 118/75; PULSE 83; RESP 18; TEMP 36.1; O2SAT 100
--- NOTE | 2022-06-29 11:56 | RAD_ITS ---
STUDY: X-RAY - LEFT FEMUR REASON FOR STUDY: Female, 76 years old. Pain following injury. TECHNIQUE: 4 view(s) of the femur. COMPARISON: None. FINDINGS: Normal visualized femur. The patient is status post left total hip and left total knee replacement. Normal visualized soft tissue structure. RAD/Femur Min 2 Views IMPRESSION: No acute abnormality is seen. Electronically Signed: Wesley Lloyd MD at 13:54 EDT ,
--- NOTE | 2022-06-29 11:56 | RAD_ITS ---
STUDY: X-RAY - LEFT KNEE REASON FOR EXAM: Female, 76 years old. Pain following a fall. TECHNIQUE: 2 view(s) of the knee. COMPARISON: None. FINDINGS: Normal visualized distal femur. Normal visualized proximal tibia and fibula. Normal proximal tibiofibular articulation. The patient is status post total knee replacement. There is good alignment. No acute abnormality is seen. Soft tissue swelling. RAD/Knee 1 or 2 Views IMPRESSION: Status post total knee replacement. There is good alignment. Soft tissue swelling. Electronically Signed: Wesley Lloyd MD at 13:53 EDT ,
--- NOTE | 2022-06-29 11:56 | RAD_ITS ---
STUDY: X-RAY - PELVIS REASON FOR EXAM: Female, 76 years old. Injury/Pain TECHNIQUE: One view of the pelvis was obtained. COMPARISON: None. FINDINGS: There is a non-specific bowel gas pattern. Normal visualized soft tissue structures. Prior laminectomy and fusion at the L5-S1 level. There is narrowing with cortical sclerosis and osteophyte formation of the sacroiliac joint consistent with degenerative osteoarthritic changes. Normal visualized bilateral superior and inferior pubic rami. Normal pubic symphysis. Normal ischial tuberosities. The patient is status post bilateral hip replacement. RAD/Pelvis 1 or 2 Views IMPRESSION: Status post bilateral hip replacement. No acute abnormality is seen. Electronically Signed: Wesley Lloyd MD at 13:57 EDT ,
--- NOTE | 2022-06-29 11:56 | RAD_ITS ---
STUDY: X-RAY - LEFT FOOT CLINICAL: Female, 76 years old. Left foot pain following a fall. TECHNIQUE: 3 view(s) of the foot. COMPARISON: None. FINDINGS: Normal talus, calcaneus, and tarsal bones. Normal visualized subtalar, talonavicular, calcaneocuboid, tarsal and tarsometatarsal articulations. Normal metatarsi. Normal metatarsophalangeal joint of the great toe. Normal tibial and fibular sesamoid bones. Normal interphalangeal joint of the great toe. Normal phalanges of the great toe. Normal second through fifth metatarsophalangeal joints. Normal interphalangeal joints and phalanges of the lesser toes. Soft tissue swelling. RAD/Foot min 3 Views IMPRESSION: Soft tissue swelling. Electronically Signed: Wesley Lloyd MD at 13:52 EDT ,
--- NOTE | 2022-06-29 12:00 | EX.ED.GENINJ ---
HPI History of Present Illness Chief Complaint: Fall Informant: patient Narrative Narrative: Patient is a 76-year-old female with history of hypertension, hyperlipidemia, CKD 3, CLL and left TKA on 05/[address] Kody Clark. Patient tried to get out of bed today and had a mechanical fall. She states she is hardwood floors and was wearing socks and at her house slippers. This caused her to fall. She did does not think she hit her head. She cried out immediately. was in the room as well. She complained of significant pain in her left leg. She has bruising over her left foot but states her entire leg from her hip to her foot hurts. She is a hard time localizing where her pain is otherwise. Denies any associated numbness or tingling. Is not on any blood thinners or aspirin. No other complaint at this time [facility] Medical History Cancer CKD (chronic kidney disease) stage 3, GFR 30-59 ml/min CLL (chronic lymphocytic leukemia) Depression Former smoker GERD (gastroesophageal reflux disease) History of chest pain History of syncope HTN (hypertension) Hypothyroidism Mixed hyperlipidemia Non-smoker Osteoporosis Primary osteoarthritis of right hip Rheumatoid arthritis Sinus bradycardia Home Medications allopurinol 100 mg tablet 100 mg PO DAILY 06/27/21 [History Last Taken 08/31/21] cetirizine 10 mg tablet 10 mg PO DAILY PRN ALLERGIES 06/27/21 [History Last Taken 08/30/21] escitalopram oxalate 10 mg tablet (Lexapro) 10 mg PO DAILY 06/27/21 [History Last Taken 08/31/21] hydrochlorothiazide 25 mg tablet 25 mg PO DAILY 06/27/21 [History Last Taken 08/31/21] ibrutinib 140 mg tablet 280 mg PO DAILY 06/28/21 [History Last Taken 08/31/21] levothyroxine 137 mcg tablet 137 mcg PO DAILY 06/28/21 [History Last Taken 08/31/21] losartan 100 mg tablet 100 mg PO DAILY 06/28/21 [History Last Taken 08/30/21] pantoprazole 40 mg tablet,delayed release 40 mg PO BID GERD 06/28/21 [History Last Taken 08/31/21] Plexus Nerve 2 cap PO/SL DAILY SUPPLEMENT 08/31/21 [History Last Taken 08/31/21] ondansetron 4 mg disintegrating tablet 4 mg PO Q8H PRN nausea and vomiting #14 tabs 11/07/21 [Rx Last Taken Unknown] cephalexin 500 mg capsule 500 mg PO Q12 #14 caps 11/08/21 [Rx Last Taken Unknown] oxycodone-acetaminophen 5 mg-325 mg tablet (Percocet) 1 tab PO Q6H PRN pain 3 days #12 tabs 06/29/22 [Rx Last Taken Unknown] Allergy/AdvReac Type Severity Reaction Status Date / Time codeine Allergy Unknown Rash Verified 06/29/22 11:33 fentanyl Allergy Unknown Rash Verified 06/29/22 11:33 meloxicam Allergy Unknown Rash Verified 06/29/22 11:33 midazolam [From Versed] Allergy Unknown Rash Verified 06/29/22 11:33 oxycodone Allergy Unknown Hives Verified 06/29/22 11:33 pramipexole [From Mirapex] Allergy Unknown Rash Verified 06/29/22 11:33 amoxicillin Allergy Rash Verified 06/29/22 11:33 Penicillins [PCN] Allergy Rash Verified 06/29/22 11:33 Sulfa (Sulfonamide Allergy Rash Verified 06/29/22 11:33 Antibiotics) tramadol [From Ultram] Allergy Other Verified 06/29/22 11:33 cephalexin [From Keflex] AdvReac Unknown Unknown Verified 06/29/22 11:33 doxycycline AdvReac Unknown GI Upset Verified 06/29/22 11:33 ezetimibe [From Zetia] AdvReac Unknown Unknown Verified 06/29/22 11:33 lisinopril AdvReac Unknown Cough Verified 06/29/22 11:33 pregabalin [From Lyrica] AdvReac Unknown Mental Verified 06/29/22 11:33 Status Change trazodone AdvReac Unknown Mental Verified 06/29/22 11:33 Status Change adhesive AdvReac Rash Verified 06/29/22 11:33 Family History Mother CVA (cerebral vascular accident) Hypertension Father Heart disease Hypertension Sister Cancer Colon Grandmother Diabetes Sister Thyroid disorder Surgical History History of foot surgery History of lumbar laminectomy History of total hysterectomy History of total replacement of both hip joints Previous back surgery Social History household members: none Smoking Status: Former smoker alcohol intake: never substance use type: does not use ROS ROS ED Constitutional Constitutional ED: Denies chills or fever(s) Eyes Eyes: Denies change in vision ENT ENT ED: Denies sore throat Cardiovascular Cardiovascular: Denies chest pain Respiratory/Chest Respiratory/Chest: Denies cough Gastrointestinal Gastrointestinal: Denies abdominal pain, nausea or vomiting Musculoskeletal Musculoskeletal: Reports arthralgias and other Details: Left leg pain pretty diffusely and most pronounced of the knee and ankle/foot Integumentary Reports other Details: Bruising to left foot Neurologic Neurologic: Denies headache(s), paresthesias or weakness Psychiatric Psychiatric: Reports anxiety Hematologic/Lymphatic Hematologic/Lymphatic: Reports easy bruising EXAM Physical Exam Const Vital Signs: 06/29/22 11:31 06/29/22 11:57 06/29/22 15:39 Temperature 96.9 F L Temperature Source Temporal Pulse Rate 83 69 Respiratory Rate 18 12 Respiratory Effort Normal Non-Labored Respiratory Pattern Normal Blood Pressure 118/75 116/71 Blood Pressure Mean 89 86 Pulse Ox 100 97 Oxygen Delivery Method Room Air Room Air Positive well nourished and well developed General Appearance ED: well developed and NAD HEENT Reports TM's clear atraumatic Nose: Negative for septum abnormal Tympanic Membrane ED: Yes TM's clear Eyes PERRL and EOMs intact bilaterally Neck full ROM General: Negative for tenderness Chest Wall inspection of chest normal and palpation of chest normal Resp normal respiratory effort and clear to auscultation bilaterally Cardio regular rhythm and no murmurs Rate: regular rate GI normal to inspection, nondistended, normoactive bowel sounds and non-tender Back/Spine normal to inspection and no thoracic nor lumbar tenderness General Back: Negative for CVA tenderness Extremity Extremity Narrative: Decreased range of motion of the LLE secondary to pain. No obvious trauma or deformity to the hip, knee, thigh or lower leg. Patient has tenderness palpation of the lateral aspect of the left knee, diffuse pain in the leg with logroll and tenderness palpation diffusely of the left ankle and foot with no pinpoint bony tenderness. Range of motion of the foot and ankle are preserved. Neuro oriented x3, moves all extremities, no focal motor deficits and no sensory deficits noted Psych mental status grossly normal and thought process normal Mood & Affect: anxious and tearful Skin Skin Narrative: Healing anterior left knee surgical incision. No signs of secondary infection. Scattered ecchymosis to the dorsum of the left foot and lateral left ankle MDM MDM MDM Narrative Medical decision making narrative: Patient is evaluated for left lower leg pain after mechanical fall this morning. She is neurovascularly intact. She has good distal pulses. No signs of compartment syndrome. Differential includes soft tissue contusion, ankle sprain or fracture, hip dislocation, hip fracture as well as periprosthetic fracture. Patient is medicated with IV morphine and Zofran. She has improvement of her symptoms with does require redose. Plain films of the hip, femur, knee, foot and ankle are obtained. They returned by myself as well as radiology. Patient does have some soft tissue swelling of the foot and ankle but no acute bony abnormalities or signs of dislocation. Patient is given oral oxycodone in the ER. She is able to ambulate with assistance. She is given an Abran wrap for her foot and then a walking boot per her request. I suspect she does have an associated ankle sprain. Patient be given a short prescription for Percocet for pain control over the weekend. She is counseled on return precautions and that if she cannot function at home she will need to return for possible admission for placement. She is comfortable with this. She has a lot of assistive devices at home including a walker, lifting recliner and a bedside commode. Patient and agreeable with plan of care. Patient discharged home in stable condition. Patient states she did not hit her head and has no signs of head trauma. Has a normal neurologic exam. I do not think CT imaging of the head is indicated at this time. Radiography Diagnostic Testing: Clinical Impression(s) from Imaging Studies Femur X-Ray 06/29/22 11:56 IMPRESSION: No acute abnormality is seen. Electronically Signed: Wesley Lloyd MD at 13:54 EDT , Foot X-Ray 06/29/22 11:56 IMPRESSION: Soft tissue swelling. Electronically Signed: Wesley Lloyd MD at 13:52 EDT , Knee X-Ray 06/29/22 11:56 IMPRESSION: Status post total knee replacement. There is good alignment. Soft tissue swelling. Electronically Signed: Wesley Lloyd MD at 13:53 EDT , Pelvis X-Ray 06/29/22 11:56 IMPRESSION: Status post bilateral hip replacement. No acute abnormality is seen. Electronically Signed: Wesley Lloyd MD at 13:57 EDT , Ankle X-Ray 06/29/22 13:00 IMPRESSION: Soft tissue swelling. No fracture is seen. Electronically Signed: Wesley Lloyd MD at 13:33 EDT , Discharge Plan Triage Chief Complaint: Fall ED Provider: Anai Hameed Dx/Rx/DC Orders Clinical Impression: Fall, Acute pain of left knee, Left ankle sprain, Contusion of foot, left Instructions: ED Bandage Elastic Wrap, ED Contusion, Lower Extremity, ED Ankle Sprain (Adult) Prescriptions: New oxycodone-acetaminophen [Percocet] 5-325 mg tablet 1 tab PO Q6H PRN (Reason: pain) 3 Days Qty: 12 0RF No Action allopurinol 100 mg tablet 100 mg PO DAILY cetirizine 10 mg tablet 10 mg PO DAILY PRN (Reason: ALLERGIES) escitalopram oxalate [Lexapro] 10 mg tablet 10 mg PO DAILY hydrochlorothiazide 25 mg tablet 25 mg PO DAILY ibrutinib 140 mg tablet 280 mg PO DAILY levothyroxine 137 mcg tablet 137 mcg PO DAILY losartan 100 mg tablet 100 mg PO DAILY pantoprazole 40 mg tablet,delayed release (DR/EC) 40 mg PO BID Plexus Nerve 2 cap PO/SL DAILY ondansetron 4 mg tablet,disintegrating 4 mg PO Q8H PRN (Reason: nausea and vomiting) Qty: 14 0RF cephalexin 500 mg capsule 500 mg PO Q12 Qty: 14 0RF Primary Care Provider: Jane Baig NP Referrals: Jane Baig NP, [facility] [Primary Care Provider] - Activity Restrictions/Additional Instructions: Use ice. Use walker as needed to help with ambulation. Wear Abran wrap to your ankle to help with the swelling and bruising. Wear the walking boot as needed for stability of your ankle/foot. Do not take Tylenol in addition to the pain medicine you are prescribed as there is already Tylenol in it. Take daily MiraLAX to help with opioid-induced constipation. If you feel you cannot function at home with the pain is too severe please return to the emergency room. Disposition Disposition: Home, Self Care
[2022-06-29] MEDS: Morphine 4 MG/ML Syringe IM (12:49)
[2022-06-29] MEDS: Ondansetron 4 MG/2 ML Vial IV (12:49)
--- NOTE | 2022-06-29 13:00 | RAD_ITS ---
STUDY: X-RAY - LEFT ANKLE REASON FOR EXAM: Female, 76 years old. Left ankle pain following a fall. TECHNIQUE: 3 view(s) of the ankle. COMPARISON: None. FINDINGS: Normal visualized distal tibia and fibula. Normal medial and lateral malleoli. Normal tibiotalar articulation and ankle mortise. Normal visualized talus and calcaneus. The visualized subtalar, talonavicular, calcaneocuboid and tarsal articulations are normal. Soft tissue swelling overlying the medial malleolus. No fracture is seen. RAD/Ankle min 3 Views IMPRESSION: Soft tissue swelling. No fracture is seen. Electronically Signed: Wesley Lloyd MD at 13:33 EDT ,
[2022-06-29] MEDS: Morphine 4 MG/ML Syringe IV (13:53)
[2022-06-29] MEDS: oxyCODONE 5 MG Tablet PO (14:54)
[2022-06-29 15:37] VITALS: BMI 33.5
[2022-06-29 15:39] VITALS: BP 116/71; PULSE 69; RESP 12; O2SAT 97
== END 2022-06-29 16:27 | disposition home or self-care (01) ==
PROVIDERS: Emergency Provider Emergency Medicine; PCP Registered Nurse; Visit Provider Emergency Medicine
DX: S93.402A Sprain of unspecified ligament of left ankle, initial encounter (principal); S90.32XA Contusion of left foot, initial encounter; M25.562 Pain in left knee; W06.XXXA Fall from bed, initial encounter; C91.10 Chronic lymphocytic leukemia of B-cell type not having achieved remission; M16.11 Unilateral primary osteoarthritis, right hip; M06.9 Rheumatoid arthritis, unspecified; N18.30 Chronic kidney disease, stage 3 unspecified; I12.9 Hypertensive chronic kidney disease with stage 1 through stage 4 chronic kidney disease, or unspecified chronic kidney disease; E78.2 Mixed hyperlipidemia; Z79.890 Hormone replacement therapy; Z79.899 Other long term (current) drug therapy; Z87.891 Personal history of nicotine dependence; Z96.643 Presence of artificial hip joint, bilateral
CPT/HCPCS: 72170; 73552; 73560; 73610; 73630; 96372; 96374; 96375; 99284; J2405

== ENCOUNTER 2023-07-09 08:01 | Inpatient (IN) | payer MEDICARE, OTHER, SELFPAY ==
[2023-07-09] VITALS (12 sets, daily range): BP systolic 85–146; BP diastolic 50–82; PULSE 60–97; RESP 16–20; TEMP 36–36.7; O2SAT 88–99; BMI 32.3
--- NOTE | 2023-07-09 08:27 | EDS_ITS ---
HPI History of Present Illness Chief Complaint: Syncope Informant: patient and spouse/S.O. Narrative Narrative: Here with significant other for evaluation. Patient dealing with increasing sore throat and increasing cough for the past 5 days. Initially saw urgent care for slight cough reported COVID was negative. Sore throat is increasing. She has been on prednisone and benzocaine sprays. Now coughing up sputum. Denies fevers. History of CLL along with lymphoma on oral chemotherapy for last 3 years. Denies chest pains or abdominal pain. Denies asthma or COPD. Remote tobacco years ago per significant other. Reports was seeing the PCP today however upon driving into the parking lot she was slumped over drooling and difficulty awakening. Reported to reinaldo Mcgowan came and helped and told the equipment scheduler take her directly to the emergency department. She was awakened by time arrival to the ED. Denies any cardiac history. [facility] Medical History Osteoporosis Non-smoker CKD (chronic kidney disease) stage 3, GFR 30-59 ml/min Mixed hyperlipidemia Sinus bradycardia CLL (chronic lymphocytic leukemia) Cancer Depression Hypothyroidism GERD (gastroesophageal reflux disease) Former smoker Rheumatoid arthritis Primary osteoarthritis of right hip History of syncope HTN (hypertension) History of chest pain Home Medications ?Medication ?Instructions ?Recorded ?Last Taken ?Type allopurinol 100 mg tablet 100 mg PO DAILY GOUT 06/27/21 07/08/23 History escitalopram oxalate 10 mg tablet 10 mg PO DAILY DEPRESSION 06/27/21 07/08/23 History (Lexapro) hydrochlorothiazide 25 mg tablet 25 mg PO DAILY BLOOD PRESSURE 06/27/21 07/08/23 History ibrutinib 140 mg tablet 280 mg PO DAILY CHEMO 06/28/21 07/08/23 History losartan 100 mg tablet 100 mg PO DAILY BLOOD PRESSURE 06/28/21 07/08/23 History pantoprazole 40 mg tablet,delayed 40 mg PO BID GERD 06/28/21 07/08/23 History release Plexus Nerve 1 cap PO DAILY SUPPLEMENT 08/31/21 07/08/23 History benzonatate 100 mg capsule 200 mg PO TID PRN COUGH 07/09/23 07/08/23 History levothyroxine 125 mcg tablet 125 mcg PO BREAKFAST THYROID 07/09/23 07/08/23 History Allergy/AdvReac Type Severity Reaction Status Date / Time codeine Allergy Unknown Rash Verified 07/09/23 10:04 fentanyl Allergy Unknown Rash Verified 07/09/23 10:04 meloxicam Allergy Unknown Rash Verified 07/09/23 10:04 midazolam (From Versed) Allergy Unknown Rash Verified 07/09/23 10:04 oxycodone Allergy Unknown Hives Verified 07/09/23 10:04 pramipexole (From Mirapex) Allergy Unknown Rash Verified 07/09/23 10:04 amoxicillin Allergy Rash Verified 07/09/23 10:04 Penicillins (PCN) Allergy Rash Verified 07/09/23 10:04 Sulfa (Sulfonamide Allergy Rash Verified 07/09/23 10:04 Antibiotics) tramadol (From Ultram) Allergy Other Verified 07/09/23 10:04 cephalexin (From Keflex) AdvReac Unknown Unknown Verified 07/09/23 10:04 doxycycline AdvReac Unknown GI Upset Verified 07/09/23 10:04 ezetimibe (From Zetia) AdvReac Unknown Unknown Verified 07/09/23 10:04 lisinopril AdvReac Unknown Cough Verified 07/09/23 10:04 pregabalin (From Lyrica) AdvReac Unknown Mental Verified 07/09/23 10:04 Status Change trazodone AdvReac Unknown Mental Verified 07/09/23 10:04 Status Change adhesive AdvReac Rash Verified 07/09/23 10:04 Family History Mother CVA (cerebral vascular accident) Hypertension Father Heart disease Hypertension Sister Cancer Colon Grandmother Diabetes Sister Thyroid disorder Surgical History History of foot surgery History of lumbar laminectomy Previous back surgery History of total replacement of both hip joints History of total hysterectomy Social History household members: none Smoking Status: Former smoker alcohol intake: never substance use type: does not use ROS ROS ED Constitutional Constitutional ED: Denies chills, fever(s) or sweats Eyes Eyes: Denies change in vision ENT ENT ED: Reports sore throat; Denies dysphagia Cardiovascular Cardiovascular: Denies chest pain, leg edema, palpitations or racing heartbeat Respiratory/Chest Respiratory/Chest: Reports cough and dyspnea; Denies dyspnea on exertion Gastrointestinal Gastrointestinal: Denies abdominal pain, diarrhea, nausea or vomiting Genitourinary Genitourinary ED: Denies dysuria, hematuria or urinary frequency Musculoskeletal Musculoskeletal: Denies back pain, extremity pain or neck pain Integumentary Denies rash or wounds Neurologic Neurologic: Denies headache(s), paresthesias or weakness EXAM Physical Exam Const Vital Signs: 07/09/23 08:02 07/09/23 08:23 07/09/23 08:25 Temperature 96.8 F L Temperature Source Temporal Pulse Rate 89 Respiratory Rate 20 H Respiratory Effort Normal Non-Labored Respiratory Pattern Normal Blood Pressure 92/57 L Blood Pressure Mean 68 Pulse Ox 90 88 Oxygen Delivery Method Room Air Room Air Oxygen Flow Rate (L/min) 07/09/23 08:26 07/09/23 10:02 07/09/23 12:00 Temperature Temperature Source Pulse Rate 77 60 Respiratory Rate 19 H 20 H Respiratory Effort Respiratory Pattern Blood Pressure 85/62 L 141/57 H Blood Pressure Mean 69 85 Pulse Ox 88 99 99 Oxygen Delivery Method Room Air Nasal Cannula Oxygen Flow Rate (L/min) 2 Positive well nourished and well developed General Appearance ED: well developed and NAD HEENT Reports TM's clear and moist mucous membranes HEENT Narrative: Minimal erythema posterior pharynx, no exudates. normocephalic and atraumatic Tympanic Membrane ED: Yes TM's clear Eyes EOMs intact bilaterally and conjunctivae normal General Eye ED: Yes normal appearance of both eyes Neck supple Neck Narrative: Right upper anterior lymphadenopathy is tender to palpation. General: Negative for tenderness Chest Wall Chest: Negative for tenderness Resp normal respiratory effort and normal air movement Effort and Inspection: symmetric chest movement; Negative for respiratory distress Cardio regular rate, regular rhythm and no murmurs Peripheral Pulses: pulses 2+ throughout GI normal to inspection, nondistended, normoactive bowel sounds and non-tender Palpation: Negative for guarding or rebound tenderness present Back/Spine no CVA tenderness and no thoracic nor lumbar tenderness Extremity normal to inspection General Extremety ED: Negative for edema or tenderness General Extremity: Negative for edema Neuro oriented x3 and no sensory deficits noted Sensorium / Orientation: awake and alert Skin no rashes or lesions noted and no wounds MDM MDM MDM Narrative Medical decision making narrative: Interventions / MDM: Differential diagnosis: Syncope, clinical pneumonia, chemotherapy with history of lymphoma Diagnosis considered but do not suspect: Cardiac dysrhythmia My EKG interpretation: Sinus rate of 66, no ST or T wave changes. QTc 425. Imaging independently reviewed and interpreted by myself: 2 view chest x-ray: No acute process also read by radiology. External documents reviewed: N/A Test considered but not ordered:N/A ED course: Patient current awake and no focal deficits was coughing showing sputum. During evaluation she was 88% with good waveforms. She was placed on oxygen. EKG ordered chest x-ray basic labs. Will check COVID and influenza along with strep testing. 1120: Patient stable on her 2 L oxygen. Chest x-ray negative labs have a white count of 17. Also left shift. Creatinine 1.28. Potassium 3.3. Initial difficulty with IV access. Clinically concerns for pneumonia. Will have midline placed by radiology staff. Will start Levaquin as she has multiple allergies. Normal QTc on EKG. Will discuss with hospitalist for admission. 1205: Blood pressure 141/57. Stable on 2 L oxygen. Spoke with hospitalist Dr. Cohen, like a noncontrast CT ordered. Sputum cultures are in the lab. Patient be admitted to PCU. Patient and spouse updated. 1400: CT scan did confirm a right lower posterior lobe infiltrate. Hospitalist and patient was updated. Re-evaluation: stable Disposition discussed with patient/family/significant other: Patient and significant other Case discussed with consulting clinician: N/A This note was generated with [employer] acquired by [employer] dictation software. It may contain incorrect words, spelling, and punctuation that were not noted in checking the note before signing. Lab Data Labs: Laboratory Results - last 24 hr 07/09/23 09:55 WBC 17.0 H RBC 4.15 L Hgb 12.8 Hct 38.7 MCV 93.3 MCH 30.8 MCHC 33.1 RDW Std Deviation 46.2 H RDW Coeff of Vazquez 13.7 Plt Count 384 MPV 10.4 Immature Gran % (Auto) 1.300 H Neut % (Auto) 70.1 H Lymph % (Auto) 10.4 L Grand % (Auto) 17.3 H Eos % (Auto) 0.2 Baso % (Auto) 0.7 Absolute Neuts (auto) 11.9 H Absolute Lymphs (auto) 1.77 Nucleated RBC % 0 Differential Comment COMMENT Diff Path Review Reviewed Sodium 137 Potassium 3.3 L Chloride 100 Carbon Dioxide 32.0 Anion Gap 5 BUN 18 Creatinine 1.28 H Est GFR (MDRD) Af Amer 52 L Est GFR (MDRD) Non-Af 43 L BUN/Creatinine Ratio 14.1 Glucose 96 Calcium 9.2 Radiography Diagnostic Testing: Clinical Impression(s) from Imaging Studies Chest X-Ray 07/09/23 08:27 IMPRESSION: Stable examination. Mild linear scarring at the lung bases. Electronically Signed: Wesley Lloyd MD at 9:58 EDT , Discharge Plan Dx/Rx/DC Orders Clinical Impression: Immunocompromised state, CLL (chronic lymphocytic leukemia), CKD (chronic kidney disease) stage 3, GFR 30-59 ml/min, Pneumonia, Hypoxia, History of lymphoma, Syncope Disposition Disposition: Acute Care Hospital [facility] Discharge Date/Time: 07/09/23 14:39
--- NOTE | 2023-07-09 08:27 | RAD_ITS ---
STUDY: X-RAY CHEST REASON FOR EXAM: Female, 77 years old. Cough TECHNIQUE: PA and lateral views of the chest. COMPARISON: Comparison is made with prior study November 07, 2021. FINDINGS: EKG electrodes are seen. Stable minimal increased linear markings at the lung bases suggestive of mild linear scarring. Stable blunting of the left costophrenic angle. Normal size heart. Normal mediastinum and samia. Normal visualized pulmonary arteries. There is atherosclerotic calcification of the aortic arch with tortuosity. There are diffuse degenerative changes of the visualized thoracic spine. Prior fusion in the lower cervical spine. There is no demonstrated abnormality of the visualized soft tissue structures of the upper abdomen. RAD/Chest PA and Lateral IMPRESSION: Stable examination. Mild linear scarring at the lung bases. Electronically Signed: Wesley Lloyd MD at 9:58 EDT ,
[2023-07-09 10:02] LABS: Absolute Lymphocyte Count 1.77 X10^3/uL (0.83-4.51); Absolute Neutrophil Count 11.9 X10^3/uL (2.0-7.7); Basophil# 0.12 X10^3/uL; Basophil% 0.7 % (0-1); Eosinophil# 0.03 X10^3/uL; Eosinophils% 0.2 % (0-5); Hematocrit 38.7 % (37-47); Hemoglobin 12.8 g/dL (12.0-15.0); Lymphocyte # 1.77 X10^3/ul (0.83-4.51); Lymphocyte % 10.4 % (19-41); Mean Corp Hgb Conc 33.1 g/dL (32-36); Mean Corpuscular Hgb 30.8 pg (27.0-32.0); Mean Corpuscular Volume 93.3 fL (81-99); Mean Platelet Vol. 10.4 fl (6.2-12.0); Monocyte# 2.94 X10^3/uL; Monocyte% 17.3 % (0-10); NRBC Flagged by Analyzer 0 % (0-5); Neutrophil # 11.92 X10^3/uL (2.7-7.7); Neutrophil % 70.1 % (47-70); POSITIVE DIFFERENTIAL YES; Platelet Count 384 K/mm3 (150-450); RBC Distribution Width CV 13.7 % (11.6-14.6); RBC Distribution Width SD 46.2 fl (35.1-43.9); Red Blood Count 4.15 M/mm3 (4.2-5.4)
[2023-07-09 10:14] LABS: Anion Gap 5 (5-15); BUN 18 mg/dL (7-18); BUN/Creat Ratio 14.1 RATIO (10-20); Calcium,Total 9.2 mg/dL (8.5-10.1); Chloride 100 mmol/L (98-107); Creatinine, Serum 1.28 mg/dL (0.55-1.02); EST Glomerular Filtration Rate 43 mL/min (>60); Est Glom Filt Rate - Afr Amer 52 mL/min (>60); Glucose 96 mg/dL (74-106); Potassium 3.3 mmol/L (3.5-5.1); Sodium Level 137 mmol/L (136-145)
[2023-07-09 10:41] LABS: Differential Indicated SCAN CRITERIA MET
--- NOTE | 2023-07-09 11:47 | PRO.PCM_ITS ---
Procedure Report Date of Procedure: 07/09/23 Assessment & Plan Assessment/Plan (1) Poor venous access: PLAN: PROCEDURE: IV Placement under Ultrasound Guidance PERFORMED BY: CHOLO Mondragon INDICATION: IV access required. Poor venous access. TECHNIQUE: Patient identity was verified with two patient identifiers. Hands were sanitized. The patient was positioned supine with right arm at 90 degrees. The patient's upper arm vasculature was assessed using ultrasound, and the right basilic vein was externally marked. The vein was suitable for insertion of a 20 gauge 10 cm extended dwell catheter. The sterile kit was opened with additional supplies dropped in. Mask and prep gloves were donned. The underdrape was placed under the patient's arm. The site was prepped with chlorhexidine, and tourniquet was loosely applied. Prep gloves were discarded, and hands were sa nitized. Sterile gloves were donned, and the patient's arm was draped. The sterile kit was assembled with needless connector and loop flushed with sterile normal saline. The right basilic vein was then accessed using dynamic ultrasound guidance, and the catheter advanced easily. 1 attempt was required. The tourniquet was released. The flushed loop and needless connector were attached. Blood return was easily aspirated. 10 ml sterile normal saline was delivered via pulsatile flush, and the loop was clamped prior to removal of the syringe to prevent back flow. Skin was prepped and followed by application of a stat-lock and a clear dressing was applied to secure the IV. The patient tolerated the procedure well. Procedures Radiology Radiology Access Procedures: MIDL
[2023-07-09] MEDS: levoFLOXacin IV 750 MG/150 ML BAG 100 MG IV (11:53)
--- NOTE | 2023-07-09 12:04 | CT_ITS ---
STUDY: CT CHEST WITHOUT CONTRAST REASON FOR EXAM: Female, 77 years old. Cough -- -- Please compare to 11/07 21 RADIATION DOSAGE (If Supplied By Facility): CTDIvol = ( 11.05 ) mGy, DLP = ( 394.98 ) mGycm TECHNIQUE: Transaxial imaging was performed without the administration of intravenous contrast material. Multiplanar coronal and sagittal images were reformatted. Individualized dose optimization techniques were used for this CT. COMPARISON: Comparison is made with prior study dated November 07, 2021. FINDINGS: CHEST Stable small bilateral axillary lymph nodes. Stable scarring at the lung apices. Stable mild scarring at the lung bases. Patchy right lower lobe infiltrate. Minimal degree of blood coronary artery calcification is seen. 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 Normal mediastinum. Normal hilar regions. Normal unenhanced pulmonary arteries. There is atherosclerotic calcification of the aortic arch. There are multi-level degenerative changes of the thoracic spine. Small hiatal hernia. CT/Chest without Contrast IMPRESSION: Since prior study, there is evidence of a focal infiltrate in the posterior medial segment of the right lower lobe. No suspicious nodules are seen. Stable mild scarring. Electronically Signed: Wesley Lloyd MD at 13:35 EDT ,
[2023-07-09] MEDS: Potassium Chloride Oral Tablet 20 MEQ 40 MEQ PO (12:20)
[2023-07-09 13:25] LABS: Pathologist Review Reviewed
--- NOTE | 2023-07-09 14:30 | HP.PCM.HOS_ITS ---
HPI - General General Date of Admission: 07/09/23 Date of Service: 07/09/23 Chief Complaint: Last spell and passed out. HPI Narrative MARCELO GONZALEZ, is a 77 F came to ED with her spouse for passed out while she went for appointment with her doctor. As per , he saw that she was not responding and pale in the parking lot and then she slumped over with wide open eyes, drooling and difficulty awakening. Later on she woke up with fatigue and tired. No seizure-like movement. In the PCP office the collar pointer told her to take her to the ER therefore patient was brought here. Prior to that patient has 5 to 7 days of sore throat, mild cough and went to urgent care where she was given prednisone. She has URI with left ear decreased hearing with heaviness sensation. History of CLL but denies chronic lung disease COPD or asthma. She just smoked occasionally in her teenage/college life. In ED, in triage blood pressure was low to 92/57, respiratory 20 heart rate 89 with mild hypoxia 88% on room air x 2. 6 chest x-ray and CT was done subsequently and found to have right middle lobe pneumonia. FORMERLY [facility], 1928–1983 Medical History Osteoporosis Non-smoker CKD (chronic kidney disease) stage 3, GFR 30-59 ml/min Mixed hyperlipidemia Sinus bradycardia CLL (chronic lymphocytic leukemia) Cancer Depression Hypothyroidism GERD (gastroesophageal reflux disease) Former smoker Rheumatoid arthritis Primary osteoarthritis of right hip History of syncope HTN (hypertension) History of chest pain Home Medications ?Medication ?Instructions ?Recorded ?Last Taken ?Type allopurinol 100 mg tablet 100 mg PO DAILY GOUT 06/27/21 07/08/23 History escitalopram oxalate 10 mg tablet 10 mg PO DAILY DEPRESSION 06/27/21 07/08/23 History (Lexapro) hydrochlorothiazide 25 mg tablet 25 mg PO DAILY BLOOD PRESSURE 06/27/21 07/08/23 History ibrutinib 140 mg tablet 280 mg PO DAILY CHEMO 06/28/21 07/08/23 History losartan 100 mg tablet 100 mg PO DAILY BLOOD PRESSURE 06/28/21 07/08/23 History pantoprazole 40 mg tablet,delayed 40 mg PO BID GERD 06/28/21 07/08/23 History release Plexus Nerve 1 cap PO DAILY SUPPLEMENT 08/31/21 07/08/23 History benzonatate 100 mg capsule 200 mg PO TID PRN COUGH 07/09/23 07/08/23 History levothyroxine 125 mcg tablet 125 mcg PO BREAKFAST THYROID 07/09/23 07/08/23 History Allergy/AdvReac Type Severity Reaction Status Date / Time codeine Allergy Unknown Rash Verified 07/09/23 10:04 fentanyl Allergy Unknown Rash Verified 07/09/23 10:04 meloxicam Allergy Unknown Rash Verified 07/09/23 10:04 midazolam (From Versed) Allergy Unknown Rash Verified 07/09/23 10:04 oxycodone Allergy Unknown Hives Verified 07/09/23 10:04 pramipexole (From Mirapex) Allergy Unknown Rash Verified 07/09/23 10:04 amoxicillin Allergy Rash Verified 07/09/23 10:04 Penicillins (PCN) Allergy Rash Verified 07/09/23 10:04 Sulfa (Sulfonamide Allergy Rash Verified 07/09/23 10:04 Antibiotics) tramadol (From Ultram) Allergy Other Verified 07/09/23 10:04 cephalexin (From Keflex) AdvReac Unknown Unknown Verified 07/09/23 10:04 doxycycline AdvReac Unknown GI Upset Verified 07/09/23 10:04 ezetimibe (From Zetia) AdvReac Unknown Unknown Verified 07/09/23 10:04 lisinopril AdvReac Unknown Cough Verified 07/09/23 10:04 pregabalin (From Lyrica) AdvReac Unknown Mental Verified 07/09/23 10:04 Status Change trazodone AdvReac Unknown Mental Verified 07/09/23 10:04 Status Change adhesive AdvReac Rash Verified 07/09/23 10:04 Family History Mother CVA (cerebral vascular accident) Hypertension Father Heart disease Hypertension Sister Cancer Colon Grandmother Diabetes Sister Thyroid disorder Surgical History History of foot surgery History of lumbar laminectomy Previous back surgery History of total replacement of both hip joints History of total hysterectomy Social History household members: none Smoking Status: Former smoker alcohol intake: never substance use type: does not use ROS ROS Narrative Constitutional: Reports fatigue and weakness. No fever. HEENT: URI symptoms of left ear heaviness/less hearing, sore throat. Mild cough reports systems reviewed and no addt'l complaints, except as documented Respiratory/Chest: No acute shortness of breath or respiratory distress or wheezing. CVS: No chest pain or pressure or tightness. Syncope Gastrointestinal: Denies coffee ground emesis, hematemesis or vomiting Genitourinary: Denies burning urination or new urinary tract symptoms Musculoskeletal: Denies acute joint pain or limited range of motion. No acute injury Neurologic: Denies seizure-like symptoms. skin: No ulcer. No rash Endocrinology: Reports systems reviewed and no addt'l complaints, except as documented Hematologic/Lymphatic: Reports systems reviewed and no addt'l complaints, except as documented Rest 14 ROS are negative except as mentioned in HPI Vital Signs Vital Signs Vital Signs: 07/09/23 08:02 07/09/23 08:23 07/09/23 08:25 Temperature 96.8 F L Temperature Source Temporal Pulse Rate 89 Respiratory Rate 20 H Respiratory Effort Normal Non-Labored Respiratory Pattern Normal Blood Pressure 92/57 L Blood Pressure Mean 68 Pulse Ox 90 88 Oxygen Delivery Method Room Air Room Air Oxygen Flow Rate (L/min) 07/09/23 08:26 07/09/23 10:02 07/09/23 12:00 Temperature Temperature Source Pulse Rate 77 60 Respiratory Rate 19 H 20 H Respiratory Effort Respiratory Pattern Blood Pressure 85/62 L 141/57 H Blood Pressure Mean 69 85 Pulse Ox 88 99 99 Oxygen Delivery Method Room Air Nasal Cannula Oxygen Flow Rate (L/min) 2 07/09/23 12:25 07/09/23 12:30 07/09/23 14:00 Temperature 98.1 F 98.0 F Temperature Source Temporal Pulse Rate 68 61 60 Respiratory Rate 18 16 18 Respiratory Effort Respiratory Pattern Blood Pressure 140/72 H 140/54 H Blood Pressure Mean 94 82 Pulse Ox 96 95 99 Oxygen Delivery Method Nasal Cannula Oxygen Flow Rate (L/min) 2 Physical Exam Narrative General: Alert, Oriented x3, Cooperative HEENT: Atraumatic, PERRLA, EOMI, Normocephalic Oral: No Gingival or Mucosal Lesions/ Ulcerations. No erythema/pharyngeal exudate. Neck: Supple, No JVD, Negative Carotid Bruits. No cervical or supraclavicular lymphadenopathy. Chest wall/Lungs: Air entry diminished in bilateral lung bases. No crepitation/rhonchi Cardiovascular: Regular rate, Regular Rhythm, Normal S1, Normal S2, No M/G/R Abdomen: Bowel Sounds Present, Soft, Non Tender, Non-Distended : No dysuria. No renal angle tenderness. No suprapubic tenderness. Extremities: No edema, Capillary Refill Less than 3 Seconds Skin: No rashes, No breakdown Musculoskeletal: No Tenderness to Palpation of Joints or Extremities Neurological: Cranial nerves II-XII grossly intact, DTR 2+/4. No acute focal neurological deficit. Psych/Mental Status: Normal Affect, Appropriate. Results Lab / Micro Data 07/09/23 09:55 07/09/23 09:55 Labs: Laboratory Results - last 24 hr 07/09/23 09:55: WBC 17.0 H, RBC 4.15 L, Hgb 12.8, Hct 38.7, MCV 93.3, MCH 30.8, MCHC 33.1, RDW Std Deviation 46.2 H, RDW Coeff of Vazquez 13.7, Plt Count 384, MPV 10.4, Immature Gran % (Auto) 1.300 H, Neut % (Auto) 70.1 H, Lymph % (Auto) 10.4 L, Dickenson % (Auto) 17.3 H, Eos % (Auto) 0.2, Baso % (Auto) 0.7, Absolute Neuts (auto) 11.9 H, Absolute Lymphs (auto) 1.77, Nucleated RBC % 0, Differential Comment COMMENT, Diff Path Review Reviewed, Sodium 137, Potassium 3.3 L, Chloride 100, Carbon Dioxide 32.0, Anion Gap 5, BUN 18, Creatinine 1.28 H, Est GFR (MDRD) Af Amer 52 L, Est GFR (MDRD) Non-Af 43 L, BUN/Creatinine Ratio 14.1, Glucose 96, Calcium 9.2 Micro: Microbiology 07/09/23 08:34 Mucosa - Throat Streptococcus pyogenes (PCR) - Final 07/09/23 08:34 Mucosa - Nose SARS-CoV-2, Influenza & RSV (PCR) - Final Imaging Radiology Impression Chest X-Ray 07/09/23 08:27 IMPRESSION: Stable examination. Mild linear scarring at the lung bases. Electronically Signed: Wesley Lloyd MD at 9:58 EDT , Chest CT 07/09/23 12:04 IMPRESSION: Since prior study, there is evidence of a focal infiltrate in the posterior medial segment of the right lower lobe. No suspicious nodules are seen. Stable mild scarring. Electronically Signed: Wesley Lloyd MD at 13:35 EDT , Assessment & Plan Assessment/Plan (1) Syncope: (2) Pneumonia: PLAN: Plan This is a 70-year-old female with history of CLL on ibrutinib was admitted for syncope with URI symptoms and cough for 1 week consistent with pneumonia 1. Right lower lobe community-acquired pneumonia: Patient is being admitted in PCU. Pneumonia workup ordered. Viral PCR for COVID, influenza and RSV are negative. Strep throat is negative too. Started on IV Levaquin in ED and continued.Blood cultures x 2 ordered although patient did not had fever. leukocytosis 17,000. 2. Syncope, exact etiology unclear possible related to fatigue and pneumonia: Orthostatic blood pressure ordered. Blood pressure was low in triage. It is better with the IV fluid. Orthostatic blood pressure tomorrow AM. Patient had echo in June 2021 reported EF 60%, stage I diastolic dysfunction PASP 30 mmHg with mild AI consistent with chronic mild HFpEF. Stress in August 2021 which was negative for reversible myocardial ischemia. 3. CKD stage IIIb: Patient baseline creatinine runs around 1.03-1.07. Admitted with 1.28. BUN normal. Mild hypokalemia potassium replaced. Serum magnesium phosphorus level normal 4. CLL on ibrutinib: Ibrutinib is a tyrosine kinase inhibitor/targeted immunotherapy therefore might cause immunosuppression. Chest CT does not show any suspicious nodules. 5..? Hypothyroidism: TSH and free T4 ordered for tomorrow AM. On Synthroid 6.? GERD: On PPI continued 7. Anxiety/depression on escitalopram continued Living will/advanced directive/end of life care: Patient does have living will or advanced directive. Her spouse/ is the power of theatre arts professor for health. After discussion of benefits/risks procedures involved with full code, DNR CC arrest and DNR CC, the patient and her opted for DNR CC arrest with no intubation. Patient doesn't want artificial life support including intubation, tube feed, ventilator and/chest compression, central venous catheter, vasopressor and DC shock if needed Total time spent in [id number] encounter in discussion of advanced directive 17 minutes. Microbiology Past 72 Hours 07/09/23 08:34 Mucosa - Throat Streptococcus pyogenes (PCR) - Final 07/09/23 08:34 Mucosa - Nose SARS-CoV-2, Influenza & RSV (PCR) - Final Laboratory Results 07/09/23 09:55: WBC 17.0 H, RBC 4.15 L, Hgb 12.8, Hct 38.7, MCV 93.3, MCH 30.8, MCHC 33.1, RDW Std Deviation 46.2 H, RDW Coeff of Vazquez 13.7, Plt Count 384, MPV 10.4, Immature Gran % (Auto) 1.300 H, Neut % (Auto) 70.1 H, Lymph % (Auto) 10.4 L, Dickenson % (Auto) 17.3 H, Eos % (Auto) 0.2, Baso % (Auto) 0.7, Absolute Neuts (auto) 11.9 H, Absolute Lymphs (auto) 1.77, Nucleated RBC % 0, Differential Comment COMMENT, Diff Path Review Reviewed, Sodium 137, Potassium 3.3 L, Chloride 100, Carbon Dioxide 32.0, Anion Gap 5, BUN 18, Creatinine 1.28 H, Est GFR (MDRD) Af Amer 52 L, Est GFR (MDRD) Non-Af 43 L, BUN/Creatinine Ratio 14.1, Glucose 96, Calcium 9.2, Phosphorus 3.3, Magnesium 2.4 Clinical Impression(s) from Imaging Studies Chest X-Ray 07/09/23 08:27 IMPRESSION: Stable examination. Mild linear scarring at the lung bases. Chest CT 07/09/23 12:04 IMPRESSION: Since prior study, there is evidence of a focal infiltrate in the posterior medial segment of the right lower lobe. No suspicious nodules are seen. Stable mild scarring. Echo 2021 Interpretation Summary Normal LV size. Left ventricular systolic function is normal. The estimated ejection fraction is 60 %. Stage 1 diastolic dysfunction. Mild (1+) eccentric aortic valve insufficiency. Pulmonary artery systolic pressure is 30 mmHg. The global longitudinal strain is normal. The global longitudinal strain = -20.5 % (normal). Charges/Coding Visit Charges Inpatient E&M: 72352 Init Hosp L3 Procedures Hospitalists Procedures: 43226 Advncd Care Plan 30 Min
[2023-07-09 14:57] LABS: Magnesium 2.4 mg/dL (1.6-2.6); Phosphorus 3.3 mg/dL (2.5-4.9)
[2023-07-09] MEDS: Lactated Ringers 1,000 ML 100 ML IV (15:33)
[2023-07-09] MEDS: Acetaminophen 325 MG Tablet 650 MG PO (17:02)
[2023-07-09] MEDS: guaiFENesin 1,200 MG Tablet 1200 MG PO (20:25)
[2023-07-09] MEDS: Pantoprazole Sodium 40 MG Tablet PO (20:26)
[2023-07-10 03:00] VITALS: BP 132/58; PULSE 80; RESP 14; TEMP 37.1; O2SAT 100
[2023-07-10 07:39] LABS: Absolute Lymphocyte Count 1.87 X10^3/uL (0.83-4.51); Absolute Neutrophil Count 8.5 X10^3/uL (2.0-7.7); Basophil# 0.15 X10^3/uL; Basophil% 1.2 % (0-1); Eosinophils% 0.8 % (0-5); Hematocrit 34.3 % (37-47); Lymphocyte # 1.87 X10^3/ul (0.83-4.51); Lymphocyte % 14.5 % (19-41); Mean Corp Hgb Conc 32.1 g/dL (32-36); Mean Corpuscular Hgb 29.8 pg (27.0-32.0); Mean Platelet Vol. 10.3 fl (6.2-12.0); Monocyte# 2.03 X10^3/uL; Monocyte% 15.8 % (0-10); NRBC Flagged by Analyzer 0 % (0-5); Neutrophil # 8.49 X10^3/uL (2.7-7.7); POSITIVE DIFFERENTIAL YES; Platelet Count 334 K/mm3 (150-450); RBC Distribution Width CV 13.6 % (11.6-14.6); RBC Distribution Width SD 46.2 fl (35.1-43.9); Red Blood Count 3.69 M/mm3 (4.2-5.4); White Blood Count 12.9 K/mm3 (4.4-11.0)
[2023-07-10 07:40] LABS: Differential Indicated SCAN CRITERIA MET
[2023-07-10 08:43] LABS: Anion Gap 6 (5-15); BUN 12 mg/dL (7-18); BUN/Creat Ratio 11.9 RATIO (10-20); Calcium,Total 8.9 mg/dL (8.5-10.1); Chloride 103 mmol/L (98-107); Creatinine, Serum 1.01 mg/dL (0.55-1.02); EST Glomerular Filtration Rate 56 mL/min (>60); Est Glom Filt Rate - Afr Amer 68 mL/min (>60); Estimated Creatinine Clearance 41.49 ml/min; Glucose 88 mg/dL (74-106); Potassium 3.8 mmol/L (3.5-5.1); Sodium Level 136 mmol/L (136-145); T4 Free Direct 1.56 ng/dL (0.76-1.46); Thyroid Stim Hormone (TSH) 3.86 uIU/mL (0.358-3.74)
[2023-07-10 10:01] VITALS: BP 115/50; PULSE 70; RESP 16; TEMP 36.8; O2SAT 97
[2023-07-10] MEDS: Enoxaparin 40 MG/0.4 ML Syringe SC (10:13)
[2023-07-10] MEDS: levoFLOXacin IV 250 MG/50 ML BAG 50 MG IV (10:13)
[2023-07-10] MEDS: Losartan Potassium 50 MG Tablet PO (10:13)
[2023-07-10] MEDS: Escitalopram Oxalate 10 MG Tablet PO (10:13)
[2023-07-10] MEDS: Allopurinol 100 MG Tablet PO (10:13)
[2023-07-10] MEDS: Acetaminophen 325 MG Tablet 650 MG PO (10:14)
[2023-07-10] MEDS: guaiFENesin 1,200 MG Tablet 1200 MG PO ×2 (10:14→22:03)
[2023-07-10] MEDS: Pantoprazole Sodium 40 MG Tablet PO ×2 (10:14→22:03)
[2023-07-10] MEDS: 0.9% Saline Lock 10 ML Syringe IV (10:23)
--- NOTE | 2023-07-10 10:23 | PN.HOSP_ITS ---
Reason for Visit Reason for Visit: Diagnoses Other specified disorders of veins (07/09/23) Pneumonia, unspecified organism (07/09/23) Syncope and collapse (07/09/23) Objective Data Objective Data Vital Signs: Vital Signs Temp Pulse Resp BP Pulse Ox O2 Del Method O2 Flow Rate 98.2 F 70 16 115/50 L 97 Nasal Cannula 2 07/10/23 10:01 07/10/23 10:01 07/10/23 10:01 07/10/23 10:01 07/10/23 10:01 07/10/23 10:01 07/10/23 10:01 Oxygen Flow Rate (L/min) 2 Oxygen Delivery Method Nasal Cannula Weight: 160 lb 0.889 oz Body Mass Index (BMI) 32.3 Intake & Output: Intake and Output for Last 24 Hours 07/08/23 07/09/23 07/10/23 23:59 23:59 23:59 Intake Total 350 / 350 861.67 / 861.67 Output Total 300 / 300 Balance 50 / 50 861.67 / 861.67 Lab / Micro Data 07/10/23 07:05 07/10/23 07:05 Labs: Laboratory Results - last 24 hr 07/09/23 09:55: WBC 17.0 H, RBC 4.15 L, Hgb 12.8, Hct 38.7, MCV 93.3, MCH 30.8, MCHC 33.1, RDW Std Deviation 46.2 H, RDW Coeff of Vazquez 13.7, Plt Count 384, MPV 10.4, Immature Gran % (Auto) 1.300 H, Neut % (Auto) 70.1 H, Lymph % (Auto) 10.4 L, Tyler % (Auto) 17.3 H, Eos % (Auto) 0.2, Baso % (Auto) 0.7, Absolute Neuts (auto) 11.9 H, Absolute Lymphs (auto) 1.77, Nucleated RBC % 0, Differential Comment COMMENT, Diff Path Review Reviewed, Phosphorus 3.3, Magnesium 2.4 07/10/23 07:05: WBC 12.9 H, RBC 3.69 L, Hgb 11.0 L, Hct 34.3 L, MCV 93.0, MCH 29.8, MCHC 32.1, RDW Std Deviation 46.2 H, RDW Coeff of Vazquez 13.6, Plt Count 334, MPV 10.3, Immature Gran % (Auto) 1.700 H, Neut % (Auto) 66.0, Lymph % (Auto) 14.5 L, Tyler % (Auto) 15.8 H, Eos % (Auto) 0.8, Baso % (Auto) 1.2 H, Absolute Neuts (auto) 8.5 H, Absolute Lymphs (auto) 1.87, Nucleated RBC % 0, Differential Comment COMMENT, Diff Path Review June foll, Sodium 136, Potassium 3.8, Chloride 103, Carbon Dioxide 27.0, Anion Gap 6, BUN 12, Creatinine 1.01, Estim Creat Clear Calc 41.49, Est GFR (MDRD) Af Amer 68, Est GFR (MDRD) Non-Af 56 L, BUN/Creatinine Ratio 11.9, Glucose 88, Calcium 8.9, TSH 3.86 H, Free T4 1.56 H Micro: Microbiology 07/09/23 12:14 Sputum, Expectorated/Coughed Respiratory Culture - Preliminary 07/09/23 15:51 Mucosa - Nose Respiratory Panel (PCR) - Final 07/09/23 16:15 Urine, Clean Catch Legionella Antigen - Final 07/09/23 16:15 Urine, Clean Catch Streptococcus pneumoniae Antigen (M - Final 07/09/23 08:34 Mucosa - Throat Streptococcus pyogenes (PCR) - Final 07/09/23 08:34 Mucosa - Nose SARS-CoV-2, Influenza & RSV (PCR) - Final Radiography Diagnostic Testing: Radiology Impression Chest CT 07/09/23 12:04 IMPRESSION: Since prior study, there is evidence of a focal infiltrate in the posterior medial segment of the right lower lobe. No suspicious nodules are seen. Stable mild scarring. Electronically Signed: Wesley Lloyd MD at 13:35 EDT , Physical Exam Narrative Seen and examined. Fatigue and SOB better but still mild HAYWARD. Physical exam General: Alert, Oriented x3, Cooperative HEENT: Atraumatic, PERRLA, EOMI, Normocephalic Oral: No Gingival or Mucosal Lesions/ Ulcerations. No erythema/pharyngeal exudate. Neck: Supple, No JVD, Negative Carotid Bruits. No cervical or supraclavicular lymphadenopathy. Chest wall/Lungs: Air entry diminished in bilateral lung bases. No crepitation/rhonchi Cardiovascular: Regular rate, Regular Rhythm, Normal S1, Normal S2, No M/G/R Abdomen: Bowel Sounds Present, Soft, Non Tender, Non-Distended : No dysuria. No renal angle tenderness. No suprapubic tenderness. Extremities: No edema, Capillary Refill Less than 3 Seconds Skin: No rashes, No breakdown Musculoskeletal: No Tenderness to Palpation of Joints or Extremities.ROM good. Neurological: Cranial nerves II-XII grossly intact, DTR 2+/4. No acute focal neurological deficit. Psych/Mental Status: Flat affect. Assessment & Plan Assessment/Plan (1) Syncope: (2) Pneumonia: PLAN: Plan This is a 70-year-old female with history of CLL on ibrutinib was admitted for syncope with URI symptoms and cough for 1 week consistent with pneumonia 1. Right lower lobe community-acquired pneumonia: Patient is being admitted in PCU. Pneumonia workup ordered. Viral PCR for COVID, influenza and RSV are negative. Strep throat is negative too. Started on IV Levaquin in ED and continued.Blood cultures x 2 ordered although patient did not had fever. leukocytosis 17,000. 07/09: Clinically she is getting better but still has fatigue and mild dyspnea on exertion. PT and OT to continue. Discussed with patient's daughter and son and agree with holding ibrutinib as it is an immunotherapy which potentially can lower immune system. Leukocytosis improving. 2. Syncope, exact etiology unclear possible related to fatigue and pneumonia: Orthostatic blood pressure ordered. Blood pressure was low in triage. It is better with the IV fluid. Orthostatic blood pressure tomorrow AM. Patient had echo in June 2021 reported EF 60%, stage I diastolic dysfunction PASP 30 mmHg with mild AI consistent with chronic mild HFpEF. Stress in August 2021 which was negative for reversible myocardial ischemia. 07/09: Syncope resolved. Hypokalemia resolved. 3. CKD stage IIIb: Patient baseline creatinine runs around 1.03-1.07. Admitted with 1.28. BUN normal. Mild hypokalemia potassium replaced. Serum magnesium phosphorus level normal 4. CLL on ibrutinib: Ibrutinib is a tyrosine kinase inhibitor/targeted immunotherapy therefore might cause immunosuppression. Chest CT does not show any suspicious nodules. 07/09: Discussed with the oncologist Dr. Alejo Salas and agree with holding ibrutinib. This is not going to hurt to hold 2 to 3 days. 5 Hypothyroidism: TSH and free T4 ordered for tomorrow AM. On levothyroxine 07/09: TSH 3.86, high normal. Free T41.56 On higher side. Levothyroxine dose decreased 6.? GERD: On PPI continued 7. Anxiety/depression on escitalopram continued Living will/advanced directive/end of life care: Patient does have living will or advanced directive. Her spouse/ is the power of trust and estates attorney for health. After discussion of benefits/risks procedures involved with full code, DNR CC arrest and DNR CC, the patient and her opted for DNR CC arrest with no intubation. Patient doesn't want artificial life support including intubation, tube feed, ventilator and/chest compression, central venous catheter, vasopressor and DC shock if needed Total time spent in [id number] encounter in discussion of advanced directive 17 minutes. Clinical Impression(s) from Imaging Studies Chest X-Ray 07/09/23 08:27 IMPRESSION: Stable examination. Mild linear scarring at the lung bases. Chest CT 07/09/23 12:04 IMPRESSION: Since prior study, there is evidence of a focal infiltrate in the posterior medial segment of the right lower lobe. No suspicious nodules are seen. Stable mild scarring. Echo 2021 Interpretation Summary Normal LV size. Left ventricular systolic function is normal. The estimated ejection fraction is 60 %. Stage 1 diastolic dysfunction. Mild (1+) eccentric aortic valve insufficiency. Pulmonary artery systolic pressure is 30 mmHg. The global longitudinal strain is normal. The global longitudinal strain = -20.5 % (normal). Charges/Coding Visit Charges Inpatient E&M: 86489 Subs Hosp L2
--- NOTE | 2023-07-10 11:15 | CASEMGMT ---
RN CM Face to Face with patient for initial transition planning/care coordination assessment. RN CM introduced self and role at [facility]. Patient lying in bed, alert and oriented, family at bedside. Patient willing to participate in assessment and is able to answer all questions appropriately. Care providers, pharmacy, and demographics verified. PCP: Jovanni Specialists: Maritza, oncologist Preferred Pharmacy:[facility] Insurance: MCR, [employer] Prescription Benefit: yes Living Will/HPOA: yes, Brett Romero LNOK: , daughters Living Arrangements: Patient lives with in a single story home with 2 steps and grab bars to enter. Patient is independent at home. Transportation: , daughter DME/HHC: Patient has shower chair, raised toilet, cane, walker, grab bars, pulse ox at home. Patient has been to [facility] in the past. Will monitor for home oxygen. Patient wishes to discharge home, denies need for home health at this time. Patient states he has no further needs or concerns at this time. CM to follow for discharge planning needs that may arise. Disposition Plan: Patient to discharge home with family support and follow-up plans in place. Saba DC, RN, CM
[2023-07-10] MEDS: Levothyroxine 125 MCG Tablet PO (11:42)
[2023-07-10 16:24] VITALS: BP 111/47; PULSE 58; RESP 16; TEMP 36.4; O2SAT 98
[2023-07-10 21:30] VITALS: BP 120/62; PULSE 88; RESP 16; TEMP 37.3; O2SAT 94
[2023-07-10] MEDS: Benzonatate 100 MG Capsule 200 MG PO (22:03)
[2023-07-11 03:30] VITALS: BP 138/66; PULSE 79; RESP 12; TEMP 36.2; O2SAT 93
[2023-07-11] MEDS: Levothyroxine 100 MCG Tablet PO (07:39)
[2023-07-11] MEDS: Allopurinol 100 MG Tablet PO (07:39)
[2023-07-11 09:26] LABS: Absolute Lymphocyte Count 1.75 X10^3/uL (0.83-4.51); Absolute Neutrophil Count 7.2 X10^3/uL (2.0-7.7); Basophil% 1.7 % (0-1); Eosinophil# 0.37 X10^3/uL; Eosinophils% 3.1 % (0-5); Hematocrit 34.2 % (37-47); Hemoglobin 11.1 g/dL (12.0-15.0); Lymphocyte # 1.75 X10^3/ul (0.83-4.51); Lymphocyte % 14.5 % (19-41); Mean Corp Hgb Conc 32.5 g/dL (32-36); Mean Corpuscular Hgb 29.8 pg (27.0-32.0); Mean Corpuscular Volume 91.9 fL (81-99); Mean Platelet Vol. 10.1 fl (6.2-12.0); Monocyte# 2.02 X10^3/uL; Monocyte% 16.7 % (0-10); NRBC Flagged by Analyzer 0 % (0-5); Neutrophil # 7.23 X10^3/uL (2.7-7.7); Neutrophil % 59.9 % (47-70); POSITIVE DIFFERENTIAL YES; Platelet Count 341 K/mm3 (150-450); RBC Distribution Width CV 13.6 % (11.6-14.6); Red Blood Count 3.72 M/mm3 (4.2-5.4); White Blood Count 12.1 K/mm3 (4.4-11.0)
[2023-07-11 09:30] LABS: Differential Indicated SCAN CRITERIA MET
[2023-07-11 10:13] LABS: Anion Gap 2 (5-15); BUN 14 mg/dL (7-18); BUN/Creat Ratio 13.9 RATIO (10-20); Calcium,Total 8.4 mg/dL (8.5-10.1); Chloride 104 mmol/L (98-107); Creatinine, Serum 1.01 mg/dL (0.55-1.02); EST Glomerular Filtration Rate 56 mL/min (>60); Est Glom Filt Rate - Afr Amer 68 mL/min (>60); Estimated Creatinine Clearance 41.49 ml/min; Glucose 91 mg/dL (74-106); Potassium 3.7 mmol/L (3.5-5.1); Sodium Level 135 mmol/L (136-145)
[2023-07-11 10:45] VITALS: BP 147/75; PULSE 76; RESP 16; TEMP 37.1; O2SAT 94
[2023-07-11] MEDS: Losartan Potassium 50 MG Tablet PO (10:49)
[2023-07-11] MEDS: levoFLOXacin IV 250 MG/50 ML BAG 50 MG IV (10:49)
[2023-07-11] MEDS: 0.9 % NaCl (Sterile) Posiflush 10 mL IV (10:49)
[2023-07-11] MEDS: Escitalopram Oxalate 10 MG Tablet PO (10:50)
[2023-07-11] MEDS: Pantoprazole Sodium 40 MG Tablet PO (10:50)
[2023-07-11] MEDS: guaiFENesin 1,200 MG Tablet 1200 MG PO (10:50)
--- NOTE | 2023-07-11 10:52 | DCINST_ITS ---
Discharge Instructions Diet Discharge Diet: No restrictions Activity Discharge Activity: Return to Normal Activity Weight Bearing Status: Weight bearing as tolerated Dressing / Incision Call your doctor if you observe: Fever of 101 or Higher, Coldness, Increased Pain, Numbness or Tingling, Change in Color, Inability to urinate, Inability to have a bowel movement, Shortness of breath, Dizziness, Fainting spells, Swelling in the ankles, Chest pain, Prolonged hiccupping, Increased palpitations (irregular heartbeat) and Calf discomfort Follow Up Care When: IN 2 WEEKS Test Results: Test results from this visit will be discussed in further detail at your follow- up appointment, if applicable. Discharge Plan Admission Admit Date/Time: 07/09/23 12:04 Primary Reason for Your Visit: Right middle lobe pneumonia Attending Provider: Luis Cohen Primary Care Provider: Jane Baig NP Instructions Additional Instructions / Restrictions: Continue incentive spirometry and PEP for 1 week Discharge Orders/Prescriptions Prescriptions: New levofloxacin 500 mg tablet 500 mg PO DAILY 5 Days Qty: 5 0RF pseudoephedrine-guaifenesin [Mucus D] 120-1,200 mg tablet extended release 12 hr 1 tab PO Q12H 7 Days Qty: 14 0RF Continued allopurinol 100 mg tablet 100 mg PO DAILY escitalopram oxalate [Lexapro] 10 mg tablet 10 mg PO DAILY ibrutinib 140 mg tablet 280 mg PO DAILY losartan 100 mg tablet 100 mg PO DAILY pantoprazole 40 mg tablet,delayed release (DR/EC) 40 mg PO BID Plexus Nerve 1 cap PO DAILY Patient Comments: PT GETS OTC PRODUCT AND TAKES ONE CAPSULE BY MOUTH ONCE DAILY benzonatate 100 mg capsule 200 mg PO TID PRN (Reason: COUGH ) levothyroxine 125 mcg tablet 125 mcg PO BREAKFAST Held hydrochlorothiazide 25 mg tablet 25 mg PO DAILY Hold Instructions: Hold for 2 days Referrals / Follow Up: Alejo Salas DO [Med Staff - Active Staff] - Within 1 Month Jane Baig NP, CHARGE ACCOUNT CLERK-C [Primary Care Provider] - Within 1 Week Disposition Disposition (needs filled in before D/C Order can be placed): Home, Self Care
--- NOTE | 2023-07-11 10:56 | PCM.DC.SUM ---
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 Right lower lobe community-acquired pneumonia: Patient is being admitted in PCU. Pneumonia workup ordered. Viral PCR for COVID, influenza and RSV are negative. Strep throat is negative too. Started on IV Levaquin in ED and continued.Blood cultures x 2 ordered although patient did not had fever. leukocytosis 17,000. 07/09: Clinically she is getting better but still has fatigue and mild dyspnea on exertion. PT and OT to continue. Discussed with patient's daughter and son and agree with holding ibrutinib as it is an immunotherapy which potentially can lower immune system. Leukocytosis improving. 07/10: Symptoms are much improved. No hypoxia or tachypnea. Mild leukocytosis improved but not normal yet. Patient has CLL. Patient is discharged on Levaquin to complete total of 7 days and Mucinex DM. Continue incentive spirometry and PEP for 1 week 2. Syncope, exact etiology unclear possible related to fatigue and pneumonia: Orthostatic blood pressure ordered. Blood pressure was low in triage. It is better with the IV fluid. Orthostatic blood pressure tomorrow AM. Patient had echo in June 2021 reported EF 60%, stage I diastolic dysfunction PASP 30 mmHg with mild AI consistent with chronic mild HFpEF. Stress in August 2021 which was negative for reversible myocardial ischemia. 07/09: Syncope resolved. Hypokalemia resolved. 3. CKD stage IIIb: Patient baseline creatinine runs around 1.03-1.07. Admitted with 1.28. BUN normal. Mild hypokalemia potassium replaced. Serum magnesium phosphorus level normal 07/10: Electrolytes are in acceptable limit. BUNs/creatinine 14/1.01. Normal range. Patient does not meet criteria for STEFFI 4. CLL on ibrutinib: Ibrutinib is a tyrosine kinase inhibitor/targeted immunotherapy therefore might cause immunosuppression. Chest CT does not show any suspicious nodules. 07/09: Discussed with the oncologist Dr. Alejo Salas and agree with holding ibrutinib. This is not going to hurt to hold 2 to 3 days. 07/10 can resume ibrutinib from tomorrow am. 5 Hypothyroidism: TSH and free T4 ordered for tomorrow AM. On levothyroxine 07/09: TSH 3.86, high normal. Free T41.56 On higher side. Levothyroxine dose decreased 07/10: Levothyroxine 100 mcg daily new dose prescribed and sent to patient's pharmacy. 6.? GERD: On PPI continued 7. Anxiety/depression on escitalopram continued Living will/advanced directive/end of life care: Patient does have living will or advanced directive. Her spouse/ is the power of finance attorney for health. After discussion of benefits/risks procedures involved with full code, DNR CC arrest and DNR CC, the patient and her opted for DNR CC arrest with no intubation. Patient doesn't want artificial life support including intubation, tube feed, ventilator and/chest compression, central venous catheter, vasopressor and DC shock if needed Discharge medication reconciliation done. Discharge follow-up instructions completed. Discharge process discussed with the patient and all questions were answered to patient's satisfaction. Follow with PCP in 1 to 2 weeks Total time spent, exact 35 minutes on discharge meds reconciliation, examination, coordination of care with nurses and ancillary staff, review of imaging and blood test and discussion with the patient on follow-up instructions. Clinical Impression(s) from Imaging Studies Chest X-Ray 07/09/23 08:27 IMPRESSION: Stable examination. Mild linear scarring at the lung bases. Chest CT 07/09/23 12:04 IMPRESSION: Since prior study, there is evidence of a focal infiltrate in the posterior medial segment of the right lower lobe. No suspicious nodules are seen. Stable mild scarring. Echo 2021 Interpretation Summary Normal LV size. Left ventricular systolic function is normal. The estimated ejection fraction is 60 %. Stage 1 diastolic dysfunction. Mild (1+) eccentric aortic valve insufficiency. Pulmonary artery systolic pressure is 30 mmHg. The global longitudinal strain is normal. The global longitudinal strain = -20.5 % (normal). Medications at Discharge Home Medications allopurinol 100 mg tablet 100 mg PO DAILY GOUT 06/27/21 escitalopram oxalate 10 mg tablet (Lexapro) 10 mg PO DAILY DEPRESSION 06/27/21 hydrochlorothiazide 25 mg tablet 25 mg PO DAILY BLOOD PRESSURE 06/27/21 ibrutinib 140 mg tablet 280 mg PO DAILY CHEMO 06/28/21 losartan 100 mg tablet 100 mg PO DAILY BLOOD PRESSURE 06/28/21 pantoprazole 40 mg tablet,delayed release 40 mg PO BID GERD 06/28/21 Plexus Nerve 1 cap PO DAILY SUPPLEMENT 08/31/21 benzonatate 100 mg capsule 200 mg PO TID PRN COUGH 07/09/23 levofloxacin 500 mg tablet 500 mg PO DAILY 5 days #5 tabs 07/11/23 levothyroxine 100 mcg tablet 100 mcg PO BREAKFAST 30 days #30 tabs 07/11/23 pseudoephedrine-guaifenesin ER 120 mg-1,200 mg tab,extend release 12hr (Mucus D) 1 tab PO Q12H 1 week #14 tabs 07/11/23 Physical Exam Narrative Seen and examined. Fatigue and SOB better. Patient mild fatigue. No tachypnea or hypoxia Physical exam General: Alert, Oriented x3, Cooperative. Mild fatigue. Obesity grade 1 BMI 32.3 kg/m? HEENT: Atraumatic, PERRLA, EOMI, Normocephalic Oral: No Gingival or Mucosal Lesions/ Ulcerations. No erythema/pharyngeal exudate. Neck: Supple, No JVD, Negative Carotid Bruits. No cervical or supraclavicular lymphadenopathy. Chest wall/Lungs: Air entry diminished in bilateral lung bases. No crepitation/rhonchi Cardiovascular: Regular rate, Regular Rhythm, Normal S1, Normal S2, No M/G/R Abdomen: Bowel Sounds Present, Soft, Non Tender, Non-Distended : No dysuria. No renal angle tenderness. No suprapubic tenderness. Extremities: No edema, Capillary Refill Less than 3 Seconds Skin: No rashes, No breakdown Musculoskeletal: No Tenderness to Palpation of Joints or Extremities.ROM good. Neurological: Cranial nerves II-XII grossly intact, DTR 2+/4. No acute focal neurological deficit. Psych/Mental Status: Flat affect. Weight / BMI Weight Weight: 160 lb 0.889 oz Body Mass Index (BMI) 32.3 ABG / Lab / Microbiology Data 07/11/23 09:15 07/11/23 09:15 Laboratory: Laboratory Results - last 24 hr 07/11/23 09:15: WBC 12.1 H, RBC 3.72 L, Hgb 11.1 L, Hct 34.2 L, MCV 91.9, MCH 29.8, MCHC 32.5, RDW Std Deviation 46.0 H, RDW Coeff of Vazquez 13.6, Plt Count 341, MPV 10.1, Immature Gran % (Auto) 4.100 H, Neut % (Auto) 59.9, Lymph % (Auto) 14.5 L, [place] % (Auto) 16.7 H, Eos % (Auto) 3.1, Baso % (Auto) 1.7 H, Absolute Neuts (auto) 7.2, Absolute Lymphs (auto) 1.75, Nucleated RBC % 0, Differential Comment COMMENT, Diff Path Review June foll, Sodium 135 L, Potassium 3.7, Chloride 104, Carbon Dioxide 29.0, Anion Gap 2 L, BUN 14, Creatinine 1.01, Estim Creat Clear Calc 41.49, Est GFR (MDRD) Af Amer 68, Est GFR (MDRD) Non-Af 56 L, BUN/Creatinine Ratio 13.9, Glucose 91, Calcium 8.4 L Microbiology: Microbiology 07/09/23 12:14 Sputum, Expectorated/Coughed Gram Stain - Final 07/09/23 12:14 Sputum, Expectorated/Coughed Respiratory Culture - Preliminary Gram negative chris 07/09/23 15:51 Mucosa - Nose Respiratory Panel (PCR) - Final 07/09/23 16:15 Urine, Clean Catch Legionella Antigen - Final 07/09/23 16:15 Urine, Clean Catch Streptococcus pneumoniae Antigen (M - Final 07/09/23 08:34 Mucosa - Throat Streptococcus pyogenes (PCR) - Final 07/09/23 08:34 Mucosa - Nose SARS-CoV-2, Influenza & RSV (PCR) - Final D/C Instructions Discharge Diet: No restrictions Weight Bearing Status: Weight bearing as tolerated Call your doctor if you observe: Fever of 101 or Higher, Coldness, Increased Pain, Numbness or Tingling, Change in Color, Inability to urinate, Inability to have a bowel movement, Shortness of breath, Dizziness, Fainting spells, Swelling in the ankles, Chest pain, Prolonged hiccupping, Increased palpitations (irregular heartbeat) and Calf discomfort When: IN 2 WEEKS Meaningful Use Info Meaningful Use Meaningful Use Diagnoses (Choose all that apply): None applicable Ischemic Stroke Statin Dosing Therapy Reference: STATIN DOSE THERAPY REFERENCE: * Patients > 75 years receive moderate or high dose statin therapy. * Patients 75 years or YOUNGER should receive HIGH intensity statin dose unless contraindicated. You will be required to document reason for non-treatment if statin daily dose does not meet guidelines. HIGH DOSE STATIN THERAPY DAILY Atorvastatin > than or = to 40 mg Rosuvastatin > than or = to 20 mg Amlodipine + Atorvastatin > than or = to 2.5/40 mg Ezetimibe + Simvastatin 10/80 mg Simvastatin 80mg Discharge Plan Admission Admit Date/Time: 07/09/23 12:04 Primary Reason for Your Visit: Right middle lobe pneumonia Attending Provider: Luis Cohen Primary Care Provider: Jane Baig NP Instructions Additional Instructions / Restrictions: Continue incentive spirometry and PEP for 1 week Discharge Orders/Prescriptions Prescriptions: New levofloxacin 500 mg tablet 500 mg PO DAILY 5 Days Qty: 5 0RF pseudoephedrine-guaifenesin [Mucus D] 120-1,200 mg tablet extended release 12 hr 1 tab PO Q12H 7 Days Qty: 14 0RF levothyroxine 100 mcg Tablet 100 mcg PO BREAKFAST 30 Days Qty: 30 3RF Continued allopurinol 100 mg tablet 100 mg PO DAILY escitalopram oxalate [Lexapro] 10 mg tablet 10 mg PO DAILY ibrutinib 140 mg tablet 280 mg PO DAILY losartan 100 mg tablet 100 mg PO DAILY pantoprazole 40 mg tablet,delayed release (DR/EC) 40 mg PO BID Plexus Nerve 1 cap PO DAILY Patient Comments: PT GETS OTC PRODUCT AND TAKES ONE CAPSULE BY MOUTH ONCE DAILY benzonatate 100 mg capsule 200 mg PO TID PRN (Reason: COUGH ) Held hydrochlorothiazide 25 mg tablet 25 mg PO DAILY Hold Instructions: Hold for 2 days Discontinued levothyroxine 125 mcg tablet 125 mcg PO BREAKFAST Referrals / Follow Up: Alejo Salas DO [Med Staff - Active Staff] - Within 1 Month Jane Baig NP, FURNITURE REPAIRER-C [Primary Care Provider] - Within 1 Week Disposition Disposition (needs filled in before D/C Order can be placed): Home, Self Care Charges/Coding Visit Charges Inpatient E&M: 05267 Disch Hosp >30min
[2023-07-11 11:38] VITALS: O2SAT 94; O2SAT 95
--- NOTE | 2023-07-11 11:57 | CASEMGMT ---
Patient has order for discharge. RN CM in to discuss needs at discharge. Patient denies needs or help at discharge. Patient had no further questions or concerns.
[2023-07-12 12:04] LABS: Pathologist Review Reviewed
[2023-07-12 14:41] LABS: Pathologist Review Reviewed
== END 2023-07-11 13:48 | disposition home or self-care (01) | DRG 194 ==
LOC: ED 11:22 → PCU 14:31
PROVIDERS: Admitting Provider Internal Medicine; Emergency Provider Emergency Medicine; PCP Registered Nurse; Visit Provider Internal Medicine
DX: J18.9 Pneumonia, unspecified organism (principal); I13.0 Hypertensive heart and chronic kidney disease with heart failure and stage 1 through stage 4 chronic kidney disease, or unspecified chronic kidney disease; C91.10 Chronic lymphocytic leukemia of B-cell type not having achieved remission; I50.32 Chronic diastolic (congestive) heart failure; E03.9 Hypothyroidism, unspecified; K21.9 Gastro-esophageal reflux disease without esophagitis; E66.9 Obesity, unspecified; N18.32 Chronic kidney disease, stage 3b; F32.A Depression, unspecified; E87.6 Hypokalemia; F41.9 Anxiety disorder, unspecified; R09.02 Hypoxemia; R55 Syncope and collapse; Z66 Do not resuscitate; Z68.32 Body mass index [BMI] 32.0-32.9, adult; Z79.899 Other long term (current) drug therapy; Z85.72 Personal history of non-Hodgkin lymphomas; Z87.891 Personal history of nicotine dependence
CPT/HCPCS: 36415; 71046; 71250; 80048; 83735; 84100; 84439; 84443; 85025; 87040; 87070; 87077; 87205; 87449; 87631; 87633; 87651; 93005; 94668; 97166; 97802; 99284; J7050; J7120; A4216

== ENCOUNTER → 2024-07-28 | Outpatient (CLI) | payer MEDICARE, OTHER, SELFPAY ==
--- NOTE | 2024-07-28 13:43 | VDLE_ITS ---
Reason For Study Reason For Study: Right leg pain and swelling RIGHT LEFT GSV is normal. CFV is compressible, spontaneous, phasic, competent, CFV is compressible, spontaneous, phasic, competent and demonstrates normal augmentation. and demonstrates normal augmentation. FV is compressible, spontaneous, phasic, competent and demonstrates normal augmentation. POP V is compressible, spontaneous, phasic, competent and demonstrates normal augmentation. T/P Trunk is compressible. PTV is compressible. RT PerV is compressible. Nonvascularized structure noted in the right popliteal fossa that measures 1.93 x 3.92 cm. Procedure This is a venous duplex using B-mode, color flow and spectral Doppler. Exam performed in department. A preliminary report was called and/or faxed to [facility]. VL/Venous Duplex US, Unilateral Interpretation Summary Deep veins of the right lower extremity are patent and compressible segmentally . There is no evidence of right lower extremity deep vein thrombosis. Valvular competence appears intact within the p roximal deep venous system on the right . The right great saphenous vein appears patent and compressible segmentally. A n on-vascular, hypoechoic structure is noted in the right popliteal space, measuring 1.93 cm x 3.92 cm. This probably represents a popliteal cyst. Clinical correlation is advised. The left common femoral vein is patent and compressible . Ordering Physician: Richa Gilbert Referring Physician: Jane Baig Performed By: Saba Hart RVT
== END | disposition home or self-care (01) ==
LOC: CVS 13:38
PROVIDERS: PCP Registered Nurse; Referring Provider Physician Assistant; Visit Provider Physician Assistant
DX: R22.41 Localized swelling, mass and lump, right lower limb (principal); M25.561 Pain in right knee
CPT/HCPCS: 93971

== ENCOUNTER 2025-02-21 13:18 | Emergency (ER) | payer MEDICARE, OTHER, SELFPAY ==
[2025-02-21] VITALS (7 sets, daily range): BP systolic 134–180; BP diastolic 70–79; PULSE 65–98; RESP 10–20; TEMP 36.9–38; O2SAT 93–99; BMI 34.6
--- NOTE | 2025-02-21 13:35 | EKG12_ITS ---
Test Reason : Blood Pressure : */* mmHG Vent. Rate : 91 BPM Atrial Rate : 91 BPM P-R Int : 158 ms QRS Dur : 86 ms QT Int : 348 ms P-R-T Axes : 41 36 16 degrees QTcB Int : 428 ms Sinus rhythm with marked sinus arrhythmia Nonspecific ST/T changes Confirmed by Thom Golden ([id number]), society editor KERRY MARIN ([id number]) on 02/23/2025 10:06:06 AM Referred By: Confirmed By: Thom Golden
--- NOTE | 2025-02-21 13:50 | EX.ED.DYSGE1 ---
HPI History of Present Illness Chief Complaint: Shortness of Breath Narrative Narrative: Patient is a 79-year-old female with past medical history of ROSSI, rheumatoid arthritis, chronic kidney disease stage III, chronic lymphocytic leukemia, hypertension who presented to the emergency department with a chief complaint of not feeling well with cough, congestion and whole body aches. Patient denies any recent sick contacts. According to significant other at bedside they went to dinner last night and she had mild cough with some congestion however when she woke up this morning she appeared to be feeling much worse. He states that she checked her temperature 3 times at home and noted that this was 100 and was concerned as she had pneumonia in the past and presents with similar symptoms. [facility] Medical History Anxiety Rheumatoid arthritis Kidney disease Sleep apnea Pneumonia Osteoporosis Non-smoker CKD (chronic kidney disease) stage 3, GFR 30-59 ml/min Mixed hyperlipidemia Sinus bradycardia CLL (chronic lymphocytic leukemia) Cancer Depression Hypothyroidism GERD (gastroesophageal reflux disease) Former smoker Rheumatoid arthritis Primary osteoarthritis of right hip History of syncope HTN (hypertension) History of chest pain Home Medications ?Medication ?Instructions ?Recorded ?Last Taken ?Type allopurinol 100 mg tablet 100 mg PO DAILY GOUT 06/27/21 07/08/23 History escitalopram oxalate 10 mg tablet 10 mg PO DAILY DEPRESSION 06/27/21 07/08/23 History (Lexapro) hydrochlorothiazide 25 mg tablet 25 mg PO DAILY BLOOD PRESSURE 06/27/21 07/08/23 History Held on 07/11/23. Instructions: Hold for 2 days ibrutinib 140 mg tablet 280 mg PO DAILY CHEMO 06/28/21 07/08/23 History losartan 100 mg tablet 100 mg PO DAILY BLOOD PRESSURE 06/28/21 07/08/23 History pantoprazole 40 mg tablet,delayed 40 mg PO BID GERD 06/28/21 07/08/23 History release Plexus Nerve 1 cap PO DAILY SUPPLEMENT 08/31/21 07/08/23 History benzonatate 100 mg capsule 200 mg PO TID PRN COUGH 07/09/23 07/08/23 History levofloxacin 500 mg tablet 500 mg PO DAILY 5 days #5 tabs 07/11/23 Unknown Rx levothyroxine 100 mcg tablet 100 mcg PO BREAKFAST 30 days #30 07/11/23 Unknown Rx tabs pseudoephedrine-guaifenesin ER 120 1 tab PO Q12H 1 week #14 tabs 07/11/23 Unknown Rx mg-1,200 mg tab,extend release 12hr (Mucus D) Allergy/AdvReac Type Severity Reaction Status Date / Time codeine Allergy Unknown Rash Verified 02/21/25 13:19 fentanyl Allergy Unknown Rash Verified 02/21/25 13:19 meloxicam Allergy Unknown Rash Verified 02/21/25 13:19 midazolam (From Versed) Allergy Unknown Rash Verified 02/21/25 13:19 oxycodone Allergy Unknown Hives Verified 02/21/25 13:19 pramipexole (From Mirapex) Allergy Unknown Rash Verified 02/21/25 13:19 amoxicillin Allergy Rash Verified 02/21/25 13:19 Penicillins (PCN) Allergy Rash Verified 07/09/23 10:04 Sulfa (Sulfonamide Allergy Rash Verified 02/21/25 13:19 Antibiotics) tramadol (From Ultram) Allergy Other Verified 02/21/25 13:19 cephalexin (From Keflex) AdvReac Unknown Unknown Verified 02/21/25 13:19 doxycycline AdvReac Unknown GI Upset Verified 02/21/25 13:19 ezetimibe (From Zetia) AdvReac Unknown Unknown Verified 02/21/25 13:19 lisinopril AdvReac Unknown Cough Verified 02/21/25 13:19 pregabalin (From Lyrica) AdvReac Unknown Mental Verified 02/21/25 13:19 Status Change trazodone AdvReac Unknown Mental Verified 02/21/25 13:19 Status Change adhesive AdvReac Rash Verified 02/21/25 13:19 Family History Mother CVA (cerebral vascular accident) Hypertension Father Heart disease Hypertension Sister Cancer Colon Grandmother Diabetes Sister Thyroid disorder Surgical History History of foot surgery History of lumbar laminectomy Previous back surgery History of total replacement of both hip joints History of total hysterectomy Social History household members: none Smoking Status: Former smoker alcohol intake: never substance use type: does not use ROS ROS ED ROS Narrative Constitutional: Complains of chills, whole body aches and generalized not feeling well Cardiovascular: Denies chest pain Respiratory: Complains of cough as noted above Abdomen: Denies any abdominal pain vomiting or diarrhea : Denies any urinary symptoms Neurological: Denies any numbness, weakness, tingling Musculoskeletal: Denies back pain Skin: Denies any rashes or lesions EXAM Physical Exam Narrative Exam Narrative: General: Patient was lying in bed rest comfortably did not appear to be in acute distress Head: Atraumatic, normocephalic Eyes: PERRL bilaterally, EOMI bilaterally, no conjunctival injection noted Neck: Soft, supple, trachea midline Cardiovascular: Regular rate and rhythm Respiratory: Clear to auscultation bilaterally Abdomen: Soft, nondistended, no tenderness to palpation Extremities: +4/5 strength noted in the bilateral upper and lower extremities, no pedal edema neuroexam Neurological: Patient following commands that she was at [facility] year is 2024 Skin: Warm, dry, intact no rashes or lesions noted Const Vital Signs: 02/21/25 13:19 02/21/25 13:34 02/21/25 13:35 Temperature 100 F H 98.4 F Temperature Source Oral Oral Pulse Rate 98 89 Respiratory Rate 20 H 18 Respiratory Effort Normal Respiratory Depth Normal Respiratory Pattern Normal Blood Pressure 146/71 H 134/78 H Blood Pressure Mean 96 96 Pulse Ox 94 99 Oxygen Delivery Method Room Air Room Air Room Air 02/21/25 13:35 02/21/25 14:23 02/21/25 15:00 Temperature 100.3 F H 100.4 F H Temperature Source Oral Oral Pulse Rate 65 89 Respiratory Rate 17 18 Respiratory Effort Respiratory Depth Respiratory Pattern Blood Pressure 158/78 H 142/79 H Blood Pressure Mean 104 100 Pulse Ox 97 95 Oxygen Delivery Method Room Air Room Air Room Air MDM MDM MDM Narrative Medical decision making narrative: Patient is a 79-year-old female who presents to the emergency department the chief complaint of whole body aches, cough, congestion and not feeling well. On the differential diagnose includes but not limited to COVID, influenza, pneumonia, electrolyte abnormality. Once the workup is obtained and reviewed she will be reevaluated. Patient given 30 cc/kg bolus of IV fluids this was ordered at 1335. She also be given a gram of Tylenol Patient unable to take ibuprofen secondary to her kidney disease and her medication she is on. Patient CBC reviewed and showed a white blood count of 8.8, hemoglobin 0.9, plate count was noted to 76. Patient INR normal at 1, PT 13. Patient sodium 139, potassium 3.9, creatinine was noted 1.07. Patient lactic acid level less than 1, AST and ALT are 18 and 9 respectively. Patient proBNP normal at 594. Patient's chest x-ray reviewed by myself and by radiology which showed no acute cardiopulmonary processes. Patient tested positive for COVID. Patient's EKG reviewed showed sinus rhythm with a rate of 91 bpm OH interval 158 Patient ambulated well here in the emergency department no hypoxia. I discussed the results with the patient and family members and they would like to go home. She is advised to continue supportive care and return with worsening symptoms or other concerns. She will be given a prescription for Zofran ODT. All question concerns answered she was discharged home in stable condition Lab Data Labs: Laboratory Results - last 24 hr 02/21/25 14:00 WBC 8.8 RBC 3.91 L Hgb 11.9 L Hct 34.8 L MCV 89.0 MCH 30.4 MCHC 34.2 RDW Std Deviation 47.0 H RDW Coeff of Vazquez 14.5 Plt Count 276 MPV 10.2 Immature Gran % (Auto) 0.600 Neut % (Auto) 71.3 H Lymph % (Auto) 7.1 L [place] % (Auto) 19.8 H Eos % (Auto) 0.1 Baso % (Auto) 1.1 H Absolute Neuts (auto) 6.3 Absolute Lymphs (auto) 0.63 L Nucleated RBC % 0 PT 13.0 INR 1.0 APTT 35.6 Sodium 139 Potassium 3.9 Chloride 103 Carbon Dioxide 25.2 Anion Gap 11 BUN 12 Creatinine 1.07 Estim Creat Clear Calc 39.32 L Est GFR (MDRD) Non-Af 53 L BUN/Creatinine Ratio 11.4 Glucose 105 H Lactic Acid < 1.0 Calcium 9.5 Total Bilirubin 0.41 AST 18 ALT 9 Alkaline Phosphatase 98 NT pro BNP II 594 Total Protein 7.1 Albumin 4.3 Globulin 2.8 Albumin/Globulin Ratio 1.5 Radiography Diagnostic Testing: Clinical Impression(s) from Imaging Studies Chest X-Ray 02/21/25 14:30 IMPRESSION: NO ACUTE FINDINGS. Reading Location: [facility] Discharge Plan Triage Chief Complaint: Shortness of Breath ED Provider: Ivan Raman Dx/Rx/DC Orders Clinical Impression: Fever, Essential hypertension, CKD (chronic kidney disease) stage 3, GFR 30-59 ml/min, COVID-19 Prescriptions: No Action allopurinol 100 mg tablet 100 mg PO DAILY escitalopram oxalate [Lexapro] 10 mg tablet 10 mg PO DAILY hydrochlorothiazide 25 mg tablet 25 mg PO DAILY ibrutinib 140 mg tablet 280 mg PO DAILY losartan 100 mg tablet 100 mg PO DAILY pantoprazole 40 mg tablet,delayed release (DR/EC) 40 mg PO BID Plexus Nerve 1 cap PO DAILY Patient Comments: PT GETS OTC PRODUCT AND TAKES ONE CAPSULE BY MOUTH ONCE DAILY benzonatate 100 mg capsule 200 mg PO TID PRN (Reason: COUGH ) levofloxacin 500 mg tablet 500 mg PO DAILY 5 Days Qty: 5 0RF pseudoephedrine-guaifenesin [Mucus D] 120-1,200 mg tablet extended release 12 hr 1 tab PO Q12H 7 Days Qty: 14 0RF levothyroxine 100 mcg Tablet 100 mcg PO BREAKFAST 30 Days Qty: 30 3RF Primary Care Provider: Jane Baig NP Referrals: Jane Baig NP, WATER RESOURCE SPECIALIST-C [Primary Care Provider, Medical] Activity Restrictions/Additional Instructions: You tested positive for COVID-19 here in the emergency department likely causing your symptoms. Your chest x-ray did not show any evidence of pneumonia. Continue supportive care use the Zofran as prescribed for as needed nausea. Use Tylenol for fever control max dose Tylenol in 24 hours 4000 mg. Print Language: Haitian Disposition Disposition: Home, Self Care
[2025-02-21 14:18] LABS: Differential Indicated SCAN CRITERIA MET; Hematocrit 34.8 % (37-47); Hemoglobin 11.9 g/dL (12.0-15.0); Immature Granulocytes Count 0.050 X10^3/uL (0.0-0.0); Mean Corp Hgb Conc 34.2 g/dL (32-36); Mean Corpuscular Volume 89.0 fL (81-99); Mean Platelet Vol. 10.2 fl (6.2-12.0); NRBC Flagged by Analyzer 0 % (0-5); POSITIVE DIFFERENTIAL YES; Platelet Count 276 K/mm3 (150-450); RBC Distribution Width CV 14.5 % (11.6-14.6); RBC Distribution Width SD 47.0 fl (35.1-43.9); Red Blood Count 3.91 M/mm3 (4.2-5.4); White Blood Count 8.8 K/mm3 (4.4-11.0)
--- OUTSIDE RECORDS SUMMARY | 2025-02-21 14:23 | XMS RPT_ITS | CCD ---
Author Organization [facility] Care Team Providers Care Renal Medicine Physician Name Role Phone Doup RN, Cathy Unavailable Unavailable Blaz VARNISH FILTERER.GOLF BALL WINDER, DNP, Urban Primary Care Provider Blaelizabeth PROCESS PROJECT ENGINEER, PROCESS PROJECT ENGINEER-C Urban Primary Care Provider Meme Bravo Attending Provider Unavailable Jessica Buckner Attending Provider Unavailable Blaelizabeth PROCESS PROJECT ENGINEER, PROCESS PROJECT ENGINEER-C Urban Referring Provider Dr. Tejas Tolliver Attending Provider Dr. Renny Mercedes Emergency Provider [phone] Care Physician, No Primary Primary Care Provider Unavailable Dr. Juan Miguel Delgado Admit Provider Dr. Juan Miguel Delgado Attending Provider Dr. Juan Miguel Delgado Other Provider Dr. Fartun Vela Attending Provider Leighann RN, Cathy Unavailable Unavailable Saskia PROCESS PROJECT ENGINEER, PROCESS PROJECT ENGINEER-C Urban Primary Care Provider Dr. Tejas Tolliver Attending Provider Dr. Alejo Garcia Attending Provider Dr. Juan Miguel Delgado Referring Provider Haagen PROCESS PROJECT ENGINEER, PROCESS PROJECT ENGINEER-C Jane Primary Care Provider Haagen PROCESS PROJECT ENGINEER, PROCESS PROJECT ENGINEER-C Jane Referring Provider Salome PROCESS PROJECT ENGINEER, PROCESS PROJECT ENGINEER-C Stephanie Attending Provider Unav ailable Haagen VARNISH FILTERER.Jane KOHLER Primary Care Provider Doup RN, Cathy Unavailable Unavailable Haagen VARNISH FILTERER.GOLF BALL WINDERJane Primary Care Provider GRACE, FELIPE PAC Attending Unavailable GRACE, FELIPE PAC Primary Care Unavailable GRACE, FELIPE PAC Admitting Unavailable KODY REID DR Attending Unavailable KODY REID DR Primary Care Unavailable KODY REID DR Admitting Unavailable DAWSON, [facility] Attending Unavailable DAWSON, [facility] Primary Care Unavailable [facility], [facility] Admitting Unavailable KODY REID DR Admitting Unavailable KODY REID DR Attending Unavailable KODY REID DR Primary Care Unavailable KODY REID DR Attending Unavailable KODY REID DR Primary Care Unavailable KODY REID DR Admitting Unavailable Heller FIBERGLASS PRODUCT TESTER, Karli Unavailable Unavailabl russell Lawton RN, Cathy Unavailable Unavailable Haagen VARNISH FILTERER.GOLF BALL WINDER, [facility], [place] Primary Care Provider Jeanette GONGORA MD, Kervin Jerez Primary Care Provider Nela vailable Haagen VARNISH FILTERER.GOLF BALL WINDER, [facility], [place] Primary Care Provider Suppan VARNISH FILTERER.EDITA Michelle A Unavailable Zack Wooten MD Unavailable Suppan VARNISH FILTERER.EDITA, Michelle A Unavailable Suppan VARNISH FILTERER.EDITA, Michelle A Unavailable [phone] Suppan VARNISH FILTERER.EDITA, Michelle A Unavailable [phone] Zack Wooten MD Unavailable Haagen PROCESS PROJECT ENGINEER-C, [facility], [place] Primary Care Provider GraceFelipe Queen Attending Provider [phone] Felipe Bradley Referring Provider [phone] Felipe Bradley Referring Unavailable GraceFelipe Banda Attending Unavailable Delbertagen PROCESS PROJECT ENGINEER, Jane Primary Care Unavailable Kody Reid Unavailable JANE BAIG Attending Unavailable HAAGEN, JANE Primary Care Unavailable HAAGEN, JANE Primary Care Unavailable CRISTINA TAYLOR Attending Unavailable HAAGEN, JANE Primary Care Unavailable HAAGEN, JANE Primary Care Unavailable HAAGEN, JANE Primary Care Unavailable HAAGEN, JANE Attending Unavailable HAAGEN, JANE Primary Care Unavailable HAAGEN, JANE Referring Unavailable HAAGEN, JANE Primary Care Unavailable CRISTINA TAYLOR Attending Unavailable HAAGEN, JANE Primary Care Unavailable CRISTINA TAYLOR Referring Unavailable HAAGEN, JANE Referring Unavailable HAAGEN, JANE Primary Care Unavailable HAAGEN, JANE Primary Care Unavailable DAWN CISNEROS Attending Unavailable HAAGEN, JANE Primary Care Unavailable SWDAWN MENDOZA Referring Unavailable HAAGEN, JANE Referring Unavailable HAAGEN, JANE Primary Care Unavailable HAAGEN, JANE Primary Care Unavailable HAAGEN, JANE Primary Care Unavailable HAAGEN, JANE Primary Care Unavailable CRISTINA TAYLOR Attending Unavailable HAAGEN, JANE Primary Care Unavailable HAAGEN, JANE Primary Care Unavailable HAAGEN, JANE Primary Care Unavailable HAAGEN, JANE Primary Care Unavailable HAAGEN, JANE Primary Care Unavailable SUPPAN, MICHELLE A Referring Unavailable HAAGEN, JANE Primary Care Unavailable HAAGEN, JANE Primary Care Unavailable SUPPAN, MICHELLE A Attending Unavailable HAAGEN, JANE Primary Care Unavailable HAAGEN, JANE Primary Care Unavailable HAAGEN, JANE Attending Unavailable HAAGEN, JANE Primary Care Unavailable CRISTINA TAYLOR Attending Unavailable HAAGEN, JANE Primary Care Unavailable HAAGEN, JANE Primary Care Unavailable HAAGEN, JANE Primary Care Unavailable CARMEN LE Referring Unavailable Allergies Allergy Classification Reported Allergen(s) Allergy Type Date of Onset Reaction(s) Facility Angiotensin Converting Enzyme (RANDY) Inhibitors (1 source) Lisinopril Drug Allergy 05-21-19 07 Cough [facility] Benzodiazepines (1 source) Midazolam Drug Allergy 08-27-19 15 Rash [facility] Cephalosporins (antibiotic) (1 source) Cephalexin Drug Allergy 01-02-20 05 [facility] Cholesterol Absorption Inhibitors (1 source) ezetimibe Drug Allergy 06-10-19 08 [facility] Doxycycline (1 source) Doxycycline Drug Allergy 06-01-19 13 GI Upset [facility] Latex (1 source) Latex Substance Allergy 02-22-20 05 [facility] Work Phone: NSAIDs (1 source) meloxicam Drug Allergy 12-26-19 12 [facility] Opioid Agonists (4 sources) Codeine Drug Allergy 09-26-19 06 Rash, [facility] Work Phone: Penicillins (antibiotic) (2 sources) Amoxicillin Drug Allergy 10-21-19 05 GI Upset, [facility] Pramipexole (1 source) Pramipexole Drug Allergy 03-23-19 12 [facility] pregabalin (1 source) pregabalin Drug Allergy 11-05-19 09 Mental Status Change [facility] Serotonin Reuptake Inhibitors (SSRIs) (1 source) traZODone Drug Allergy 12-17-19 09 Mental Status Change [facility] Sulfonamides (antibiotic) (1 source) Sulfonamides (Antibiotic) Drug Allergy 10-21-19 05 [facility] (20 sources) Amoxicillin; Translations: [AMOXICILLIN] Drug Allergy 12-06-19 05 GI [facility] Work Phone: (20 sources) Cephalexin; Translations: [CEPHALEXIN] Drug Allergy 01-02-[address] [facility] Work Phone: (20 sources) Codeine; Translations: [CODEINE] Drug Allergy 08-04-19 11 [facility] Work Phone: (20 sources) Doxycycline; Translations: [DOXYCYCLINE HCL] Drug Allergy 06-01-19 13 GI [facility] (20 sources) ezetimibe; Translations: [EZETIMIBE] Drug Allergy 06-10-[address] [facility] (20 sources) fentaNYL; Translations: [FENTANYL] Drug Allergy 08-27-19 15 [facility] (20 sources) Latex; Translations: [LATEX] Propensity to adverse reactions 02-22-20 05 [facility] Work Phone: (20 sources) Lisinopril; Translations: [LISINOPRIL] Drug Allergy 05-21-19 07 [facility] (20 sources) meloxicam; Translations: [MELOXICAM] Drug Allergy 12-26-19 12 [facility] (20 sources) Midazolam; Translations: [MIDAZOLAM HCL] Drug Allergy 08-27-19 15 [facility] (20 sources) oxyCODONE; Translations: [OXYCODONE] Drug Allergy 08-08-19 13 [facility] (20 sources) Penicillins; Translations: [PENICILLINS] Drug Intolerance 10-21-19 05 [facility] Work Phone: (20 sources) Pramipexole; Translations: [PRAMIPEXOLE] Drug Allergy 03-23-19 12 Rash [facility] (20 sources) pregabalin; Translations: [PREGABALIN] Drug Allergy 11-05-19 09 Mental Status Change [facility] (20 sources) Sulfonamides (Antibiotic); Translations: [SULFA (SULFONAMIDE ANTIBIOTICS)] Propensity to adverse reactions 10-21-19 05 [facility] Work Phone: (20 sources) traMADol; Translations: [TRAMADOL HCL] Drug Allergy 09-26-19 06 [facility] Work Phone: (20 sources) traZODone; Translations: [TRAZODONE (BULK)] Drug Allergy 12-17-19 09 Mental Status Change [facility] (11 sources) Doxycycline Drug Allergy 07-06-19 22 GI Upset [facility] (11 sources) Midazolam Drug Allergy 07-06-19 22 [facility] (11 sources) traMADol Drug Allergy 07-06-19 22 Other [facility] (11 sources) traZODone Drug Allergy 07-06-19 22 Mental Status Change [facility] (5 sources) BANDAIDS Propensity to adverse reactions 05-17-19 [facility] Work Phone: (20 sources) Penicillins Drug Intolerance 10-21-19 05 [facility] Work Phone: (7 sources) Adhesive agent; Translations: [adhesive] Propensity to adverse reactions 11-08-19 [facility] Comment on above: BANDAIDS (6 sources) Penicillins Allergy to substance 11-08-19 [facility] (6 sources) Sulfonamides (Antibiotic) Allergy to substance 11-08-19 [facility] (1 source) Amoxicillin Drug Allergy [facility] (1 source) Codeine Drug Allergy [facility] (1 source) ezetimibe Drug Allergy [facility] (1 source) fentaNYL Drug Allergy [facility] (1 source) Lisinopril Drug Allergy [facility] (1 source) meloxicam Drug Allergy [facility] (1 source) oxyCODONE Drug Allergy [facility] (1 source) Penicillin Drug Allergy [facility] (1 source) pregabalin Drug Allergy [facility] (1 source) Sulfonamides (Antibiotic) Drug allergy (disorder) [facility] (1 source) traMADol Drug Allergy [facility] (20 sources) NITROFURANTOIN, MACROCRYSTALS / Nitrofurantoin, Monohydrate; Translations: [NITROFURANTOIN MONOHYD/M-CRYST] Drug Allergy 12-04-19 Intolerance [facility] Work Phone: (20 sources) Penicillins Drug Intolerance 10-21-19 05 Hives [facility] (1 source) Amoxicillin Drug Allergy 07-09-19 [facility] (1 source) Cephalexin Drug Allergy 07-09-19 [facility] (1 source) Codeine Drug Allergy 07-09-19 [facility] (1 source) Doxycycline Drug Allergy 07-09-19 [facility] (1 source) ezetimibe Drug Allergy 07-09-19 [facility] (1 source) fentaNYL Drug Allergy 07-09-19 [facility] (1 source) Lisinopril Drug Allergy 07-09-19 [facility] (1 source) meloxicam Drug Allergy 07-09-19 [facility] (1 source) Midazolam Drug Allergy 07-09-19 [facility] (1 source) oxyCODONE Drug Allergy 07-09-19 [facility] (1 source) Penicillins Drug allergy (disorder) 07-09-19 [facility] (1 source) Pramipexole Drug Allergy 07-09-19 [facility] (1 source) pregabalin Drug Allergy 07-09-19 [facility] (1 source) Sulfonamides (Antibiotic) Drug allergy (disorder) 07-09-19 [facility] (1 source) traMADol Drug Allergy 07-09-19 [facility] (1 source) traZODone Drug Allergy 07-09-19 [facility] Medications Current Medications Medication Drug Class(es) Dates Sig (Normalized) Sig (Original) allopurinol 100 mg oral tablet (20 sources) Xanthine Oxidase Inhibitor Start: 02-08-2021 End: 02-14-2024 take 1 tablet by mouth once daily allopurinol (ZYLOPRIM) 100 mg tablet Take 1 tablet by mouth once daily. 90 tablet 3 02/14/2024 Active Comment on above: take 1 tablet by mesha th once daily Take 1 tablet by mesha th once daily. azithromycin 250 mg oral tablet (2 sources) Macrolide Antimicrobial Start: 02-09-2022 End: 02-14-2022 azithromycin (ZITHROMAX Z-KEENA) 250 mg tablet Take 2 tablets day one, then, 1 tablet daily until gone. Only if significantly worsening. 6 tablet 0 02/09/2022 02/14/2022 Active Comment on above: Take 2 tablets day o ne, then, 1 tablet daily until gone. Only if significantly worsening. ciprofloxacin 250 mg oral tablet (5 sources) Quinolone Antimicrobial Start: 08-25-2024 End: 08-30-2024 take 1 tablet by mouth twice daily ciprofloxacin HCl (CIPRO) 250 mg tablet Take 1 tablet by mouth two times a day for 5 days. 10 tablet 08/25/2024 08/30/2024 Active Start: 04-17-2024 End: 04-22-2024 take 1 tablet by mouth twice daily ciprofloxacin HCl (CIPRO) 500 mg tablet Indications: Dysuria Take 1 tablet by mouth two times a day for 5 days. 10 tablet 04/17/2024 04/22/2024 Active Start: 12-04-2023 End: 12-09-2023 take 1 tablet by mouth twice daily ciprofloxacin HCl (CIPRO) 250 mg tablet Indications: Urinary tract infection with hematuria, site unspecified Take 1 tablet by mouth two times a day for 5 days. 10 tablet 12/04/2023 12/09/2023 Active oxyquinoline sulfate 0.58778 mg/mg / sodium dodecyl sulfate 0.0001 mg/mg vaginal gel (20 sources) Start: 03-08-2022 End: 07-29-2024 Oxyquinoline-Na Lauryl Sulfa te (TRIMO-SCHUSTER JELLY) 0.025-0.01 % gel Use 1 inch vaginally two times a week. 113.4 g 1 07/29/2024 Active Start: 09-01-2019 End: 03-08-2022 Oxyquinoline-Na Lauryl Sulfa te (TRIMO-SCHUSTER JELLY) 0.025-0.01 % gel Use 1 Inch vaginally two times a week. 1 Tube 2 10/12/2020 03/08/2022 Discontinued Comment on above: Use 1 Inch vaginally two times a week. doxycycline monohydrate 100 mg oral tablet (1 source) Tetracycline-class Drug Start: 3 End: 3 take 1 tablet by mouth twice daily doxycycline monohydrate 100 mg tablet Take 1 tablet by mouth twice daily for 5 days. 10 tablet 0 09/20/2022 09/25/2022 Active Comment on above: Take 1 tablet by mesha th twice daily for 5 days. escitalopram 10 mg oral tablet (20 sources) Serotonin Reuptake Inhibitor Start: 4 End: 4 take 1 tablet by mouth once daily escitalopram oxalate (LEXAPRO) 5 mg tablet Indications: Mixed anxiety depressive disorder Take 1 tablet by mouth once daily. Take in addition to 10mg tablet for a total of 15mg daily. 90 tablet 10/18/2023 11/18/2023 Discontinued (Other) Start: 03-11-2023 End: 06-09-2023 take 0.5 tablet by mouth once daily escitalopram oxalate (LEXAPRO) 10 mg tablet Indications: Mixed anxiety depressive disorder Take 0.5 tablets by mouth once daily. 135 tablet 1 03/11/2023 04/10/2023 Discontinued (Adjust Sig - Block E-Cancel) Start: 10-03-2022 End: 01-01-2023 take 1.5 tablets by mouth once daily escitalopram oxalate (LEXAPRO) 10 mg tablet Indications: Mixed anxiety depressive disorder Take 1.5 tablets by mouth once daily. 135 tablet 1 10/03/2022 Active Start: 09-17-2019 End: 02-21-2025 take 1 tablet by mouth once daily escitalopram oxalate (LEXAPRO) 10 mg tablet Indications: Mixed anxiety depressive disorder Take 1 tablet by mouth once daily. 90 tablet 1 08/25/2024 02/21/2025 Active Comment on above: Take 1 tablet by mesha th once daily. take 1 tablet by mesha th once daily Take 1.5 tablets by mouth once daily. Take 0.5 tablets by mouth once daily. fluconazole 150 mg oral tablet (2 sources) Azole Antifungal Start: End: take 1 tablet by mouth once fluconazole (DIFLUCAN) 150 mg tablet Indications: Vaginal yeast infection Take 1 tablet by mouth one time only for 1 dose. 1 tablet 04/17/2024 04/17/2024 Active 12 hr guaiFENesin 600 mg extended release oral tablet (5 sources) Start: End: 5 take 1 tablet by mouth twice daily guaiFENesin (MUCINEX) 600 mg 12 hr tablet Indications: Acute cough Take 1 tablet by mouth two times a day for 10 days. 20 tablet 04/02/2024 04/12/2024 Active ibrutinib 140 mg oral capsule (20 sources) Kinase Inhibitor Start: take 2 capsules by mouth once daily ibrutinib (IMBRUVICA) 140 mg capsule Indications: CLL (chronic lymphocytic leukemia) (HCC) Take 2 capsules (280mg) by mouth once daily with a glass of water 60 capsule 3 11/03/2024 Active Start: 09-09-2022 End: 11-02-2024 take 2 capsules by mouth once daily ibrutinib (IMBRUVICA) 140 mg capsule Indications: CLL (chronic lymphocytic leukemia) (HCC) Take 2 capsules (280mg) by mouth once daily with a glass of water 60 capsule 3 10/06/2024 9:32 AM EDT 06/16/2024 11/02/2024 Discontinued Start: 06-26-2022 End: 09-06-2022 take 2 capsules by mouth once daily ibrutinib (IMBRUVICA) 140 mg capsule Indications: CLL (chronic lymphocytic leukemia) (HCC) Take 2 capsules (280mg) by mouth once daily. 60 capsule 1 06/26/2022 09/06/2022 Discontinued Start: 07-21-2021 End: 06-22-2022 take 2 capsules by mouth once daily ibrutinib (IMBRUVICA) 140 mg capsule Indications: CLL (chronic lymphocytic leukemia) (HCC) Take 2 capsules (280 mg) by mouth once daily. 60 capsule 1 09/26/2021 11/28/2021 Discontinued Start: 06-28-2021 take 280 mg by mouth once sandrine y Ibrutinib Active 280 MG PO DAILY June 28, 2021 4:04pm Start: 06-28-2021 take 420 mg by mouth once sandrine y Ibrutinib Active 420 MG PO DAILY June 28, 2021 4:04pm Start: 06-27-2021 End: 06-28-2021 take 1 tablet by mouth once daily Ibrutinib 140 mg tablet Active 280 mg PO DAILY June 28, 2021 4:04pm Start: 03-06-2021 End: 07-21-2021 take 3 capsules by mouth once daily ibrutinib (IMBRUVICA) 140 mg capsule Indications: CLL (chronic lymphocytic leukemia) (HCC) Take 3 capsules (420 mg) by mouth once daily. 90 capsule 2 05/19/2021 07/21/2021 Discontinued Comment on above: Take 3 capsules (420 mg) by mouth once daily. Take 2 capsules (240 mg) by mouth once daily Take 2 capsules (280 mg) by mouth once daily. Take 2 capsules (280 mg) by mouth once daily. Take 2 capsules (280 mg) by mouth once daily with a glass of water Lactobacillus acidophilus (20 sources) take 1 tablet by mouth once daily Lactobacillus acidophilus (PROBIOTIC ORAL) Take 1 tablet by mouth once daily. Active take 1 tablet by mouth once sandrine y Lactobacillus acidophilus (PROBIOTIC ORAL) Take 1 tablet by mouth once daily. 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 Take on empty stomach. For thyroid. 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 Take on empty stomach. For thyroid. 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 Take on empty stomach. For thyroid. 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 90 tablet 3 11/29/2021 Active Start: 06-27-2021 End: 06-28-2021 Levothyroxine 100 mcg tablet Discontinued 137 ug PO DAILY June 27, 2021 3:46pm June 28, 2021 4:04pm Start: 06-27-2021 End: 06-28-2021 take 137 ug by mouth once daily Levothyroxine Disconti nued 137 MCG PO DAILY June 27, 2021 3:46pm June 28, 2021 4:04pm Start: 12-25-2019 End: 07-09-2023 take 1 tablet by mouth once daily Levothyroxine 137 mcg tablet Discontinued 137 ug PO DAILY June 28, 2021 12:00am July 09, 2023 11:48am Start: 01-09-2017 End: 06-27-2021 Levothyroxine 100 MCG tablet Discontinued 112 ug PO DAILY January 09, 2017 1:00am June 27, 2021 3:47pm Start: 01-09-2017 End: 06-27-2021 take 112 ug by mouth once daily Levothyroxine Disconti nued 112 MCG PO DAILY January 09, 2017 1:00am June 27, 2021 3:47pm Comment on above: Take 1 tablet by mesha th once daily. Take on empty stomach. For thyroid. take 1 tablet by mesha th once daily ON AN EMPTY STOMACH FOR THYROID Please take 137 mcg tablet daily 6 days a week, 1/2 tablet on seventh day. losartan potassium 100 mg oral tablet (20 sources) Angiotensin 2 Receptor Nathaniel Start: 12-23-2019 End: 02-28-2024 take 1 tablet by mouth once daily losartan (COZAAR) 100 mg tablet Indications: Essential hypertension, benign Take 1 tablet by mouth once daily. 90 tablet 3 02/28/2024 Active Start: 01-09-2017 End: 06-28-2021 take 2 tablets by mouth once daily Losartan 50 MG tablet Discontinued 100 mg PO DAILY January 09, 2017 1:00am June 28, 2021 4:05pm Start: 01-09-2017 End: 06-28-2021 take 100 mg by mouth once daily Losartan Discontinued 100 MG PO DAILY January 09, 2017 1:00am June 28, 2021 4:05pm Comment on above: Take 1 tablet by mesha th once daily. take 1 tablet by mesha th once daily ondansetron 8 mg oral tablet (20 sources) Serotonin-3 Receptor Antagonist Start: take 1 tablet by mouth every eight hours as needed ondansetron (ZOFRAN) 8 mg tablet Take 1 tablet by mouth every 8 hours as needed. 20 tablet 1 08/25/2024 Active Start: 06-07-2022 End: 10-03-2022 take 1 tablet by mouth every eight hours as needed ondansetron (ZOFRAN) 8 mg tablet Take 1 tablet by mouth every 8 hours as needed. 20 tablet 1 06/07/2022 10/03/2022 Discontinued Start: 11-07-2021 End: 07-09-2023 take 1 tablet by mouth every eight hours as needed for nausea Ondansetron 4 mg tablet,disintegrating Discontinued 4 mg PO Q8H as needed for NAUSEA/VOMITING November 07, 2021 12:00am July 09, 2023 11:48am End: 06-07-2022 take 1 tablet by mouth every six hours as needed ondansetron (ZOFRAN) 4 mg tablet Take 4 mg by mouth every 6 hours as needed. 0 06/07/2022 Discontinued Comment on above: Take 1 tablet by mesha th every 8 hours as needed. Take 4 mg by mouth e very 6 hours as needed. OTC PRODUCT (20 sources) take 1 capsule by mouth once daily OTC PRODUCT Take 1 capsule by mouth once daily. Plexus nerve Active take 1 capsule by mouth once flaca ly OTC PRODUCT Take 1 capsule by mouth once daily. Plexus nerve 0 Active OTC PRODUCT Plex us nerve, 2 capsules every night 0 Active Comment on above: Plexus nerve, 2 caps ules every night Take 1 capsule by mo [facility] once daily. Plexus nerve pantoprazole 40 mg delayed release oral tablet (20 sources) Proton Pump Inhibitor Start: 2 End: 3 take 1 tablet by mouth once daily pantoprazole DR (PROTONIX) 40 mg tablet Take 1 tablet by mouth once daily. 180 tablet 1 07/25/2021 02/05/2022 Discontinued Start: 07-07-2019 End: 07-07-2020 take 1 tablet by mouth once daily pantoprazole DR (PROTONIX) 40 mg tablet Indications: Gastroesophageal reflux disease, esophagitis presence not specified Take 1 tablet by mouth once daily. 90 tablet 3 07/07/2019 07/07/2020 Discontinued Start: 01-09-2017 End: 10-30-2025 take 1 tablet by mouth twice daily pantoprazole DR (PROTONIX) 40 mg tablet Take 1 tablet by mouth two times a day. 180 tablet 3 10/30/2024 10/30/2025 Active Comment on above: Take 1 tablet by mesha once daily. Take 1 tablet by mesha twice daily. Plexus Nerve (8 sources) Start: 08-31-2021 Plexus Nerve A ctive 1 NMA PO DAILY August 31, 2021 12:00am Start: 08-31-2021 take 2 capsules by [facility] once daily Plexus Nerve Active 2 CAP SL/PO DAILY August 31, 2021 12:00am Start: 08-31-2021 take 1 capsule by mouth once d aily Plexus Nerve Active 1 CAP SL/PO DAILY August 31, 2021 12:00am sertraline 25 mg oral tablet (9 sources) Serotonin Reuptake Inhibitor Start: 09-30-2024 take 1 tablet by mouth once daily sertraline (ZOLOFT) 25 mg tablet Indications: Mixed anxiety depressive disorder Take 1 tablet by mouth once daily. 30 tablet 2 09/30/2024 Active tiZANidine 2 mg oral tablet (7 sources) Central alpha-2 Adrenergic Agonist Start: 10-05-2024 take 1 tablet by mouth every six hours as needed tiZANidine (ZANAFLEX) 2 mg tablet Take 1 tablet by mouth every 6 hours as needed. 20 tablet 10/05/2024 Active Completed/Discontinued Medications Medication Drug Class(es) Dates Sig (Normalized) Sig (Original) acetaminophen 500 mg oral tablet (20 sources) Start: 01-22-2017 End: 06-28-2021 take 2 tablets by mouth every eight hours as needed for pain Acetaminophen 500 MG tablet Discontinued 1000 mg PO EVERY 8 HOURS as needed for Pain April 16, 2018 9:00am June 28, 2021 4:05pm Start: 01-22-2017 End: 06-28-2021 take 1000 mg by mouth every eight hours Acetaminophen Discontinued 1000 MG PO EVERY 8 HOURS April 16, 2018 9:00am June 28, 2021 4:05pm take 2 tablets by mo [facility] every six hours as needed acetaminophen (TYLENOL) 325 mg tablet Take 650 mg by mouth every 6 hours as needed for pain. Active End: 07-17-2023 take 1 tablet by mouth twice daily as needed acetaminophen (TYLENOL ARTHRITIS ORAL) Take 1 tablet by mouth twice daily as needed. 07/17/2023 Discontinued End: 07-17-2023 take 1 tablet by mouth twice daily as needed acetaminophen (TYLENOL ARTHRITIS ORAL) Take 1 tablet by mouth twice daily as needed. 0 07/17/2023 Discontinued take 1 tablet by mesha th twice daily as needed acetaminophen (TYLENOL ARTHRITIS ORAL) Take 1 tablet by mouth twice daily as needed. 0 Active acetaminophen (T YLENOL ARTHRITIS ORAL) Take by mouth as needed. 0 Active Comment on above: Take by mouth as nee ded. Take 1 tablet by mesha th twice daily as needed. acetaminophen 325 mg / oxyCODONE hydrochloride 5 mg oral tablet (2 sources) Opioid Agonist Start: 06-30-19 End: 07-09-19 24 Oxycodone-Acetamino phen (Percocet) 5-325 mg tablet Discontinued 1 {tbl} PO EVERY 6 HOURS as needed for pain 01 27June 29, 2022 July 09, 2023 11:49am amLODIPine 2.5 mg oral tablet (16 sources) Dihydropyridine Calcium Channel Nathaniel Start: 10-02-19 End: 10-09-19 take 1 tablet by mouth once daily amLODIPine (NORVASC) 2.5 mg tablet Take 1 tablet by mouth once daily. 30 tablet 1 10/01/2024 10/08/2024 Discontinued Start: 04-16-2018 End: 06-27-2021 take 1 tablet by mouth once daily Amlodipine 5 MG tablet Discontinued 5 mg PO DAILY April 16, 2018 1:00am June 27, 2021 3:47pm aspirin 81 mg delayed release oral tablet (7 sources) Platelet Aggregation Inhibitor, Nonsteroidal Anti-inflammatory Drug End: 09-07-2022 take 1 tablet by mouth twice daily aspirin, enteric coated (ASPIRIN, ENTERIC COATED) 81 mg EC tablet Take 81 mg by mouth twice daily. 0 09/07/2022 Discontinued Comment on above: Take 81 mg by mouth twice daily. benzonatate 100 mg oral capsule (18 sources) Non-narcotic Antitussive Start: 09-30-2024 End: 10-10-2024 take 2 capsules by mouth three times daily as needed benzonatate (TESSALON PERLE) 100 mg capsule Indications: Acute cough Take 2 capsules by mouth three times a day as needed for up to 10 days. 60 capsule 09/30/2024 10/08/2024 Discontinued Start: 07-04-2023 End: 04-12-2024 take 2 capsules by mouth three times daily as needed benzonatate (TESSALON PERLE) 100 mg capsule Indications: Acute cough Take 2 capsules by mouth three times a day as needed for up to 10 days. 60 capsule 04/02/2024 04/07/2024 Discontinued Start: 09-20-2022 End: 10-03-2022 take 1 capsule by mouth every eight hours as needed benzonatate (TESSALON PERLES) 100 mg capsule Take 1 capsule by mouth three times daily as needed. 14 capsule 0 09/20/2022 10/03/2022 Discontinued Comment on above: Take 1 capsule by [facility] three times daily as needed. cephalexin 500 mg oral capsule (4 sources) Cephalosporin Antibacterial Start: 11-09-19 End: 07-09-19 take 1 capsule by mouth every twelve hours Cephalexin 500 mg capsule Discontinued 500 mg PO EVERY 12 HOURS November 08, 2021 12:00am July 09, 2023 11:48am cetirizine hydrochloride 10 mg oral tablet (20 sources) Histamine-1 Receptor Antagonist Start: 06-28-19 End: 05-22-20 24 take 1 tablet by mouth once daily as needed Cetirizine 10 mg tablet Discontinued 10 mg PO DAILY as needed for ALLERGIES June 27, 2021 12:00am July 09, 2023 11:48am Comment on above: Take 10 mg by mouth once daily. Take 10 mg by mouth once daily. PRN fish,bora,flax oils-om3,6,9no1 1,200 mg cap (20 sources) End: 10-09-19 25 take 1 capsule by mouth once daily fish,bora,flax oils-om3,6,9no1 1,200 mg cap Take 1 capsule by mouth once daily. 10/08/2024 Discontinued take 1 capsule by mouth once flaca ly fish,bora,flax oils-om3,6,9no1 1,200 mg cap Take 1 capsule by mouth once daily. Active take 1 capsule by mouth once flaca ly fish,bora,flax oils-om3,6,9no1 1,200 mg cap Take 1 capsule by mouth once daily. 0 Active fluticasone propionate 0.05 mg/actuat metered dose nasal spray (6 sources) Corticosteroid Start: 07-04-2023 End: 07-17-2023 take 2 spray(s) by mouth once daily fluticasone (FLONASE) 50 mcg/actuation nasal spray Indications: URI, acute , ETD (Eustachian tube dysfunction), right Use 2 Sprays in each nostril once daily. Rinse mouth after use. 1 Each 0 07/04/2023 07/17/2023 Discontinued 12 hr guaiFENesin 1200 mg / pseudoephedrine hydrochloride 120 mg extended release oral tablet (13 sources) alpha-Adrenergic Agonist Start: 07-11-2023 End: 09-27-2023 take 1 tablet by mouth every twelve hours MUCINEX D MAXIMUM STRENGTH 120-1,200 mg tab ER 12 hr Take 1 tablet by mouth every 12 hours. 0 07/11/2023 09/27/2023 Discontinued Start: 07-11-2023 Pseudoephedrin e-Guaifenesin (Mucus D) 120-1,200 mg tablet extended release 12 hr Active 1 {tbl} PO Q12H 14 7 July 11, 2023 12:00am hydroCHLOROthiazide 25 mg oral tablet (20 sources) Thiazide Diuretic Start: 12-13-2020 End: 02-27-2025 take 1 tablet by mouth once daily hydroCHLOROthiazide 25 mg tablet Indications: Essential hypertension, benign Take 1 tablet by mouth once daily. 90 tablet 3 02/28/2024 10/08/2024 Discontinued (Discontinued by another Health Care Provider) Start: 03-04-2020 End: 08-22-2020 take 1 tablet by mouth once daily hydroCHLOROthiazide (HYDRODIURIL, ESIDRIX) 25 mg tablet Indications: Essential hypertension, benign Take 1 tablet by mouth once daily. 90 tablet 1 03/04/2020 08/22/2020 Discontinued Start: 12-23-2019 End: 03-04-2020 take 1 capsule by mouth once daily Hydrochlorothiazide 12.5 mg capsule Take 1 capsule by mouth once daily. 90 capsule 3 12/23/2019 03/04/2020 Discontinued (Changing Therapy/Dosage Form) Comment on above: Take 1 tablet by mesha th once daily. methocarbamol 500 mg oral tablet (2 sources) Muscle Relaxant Start: 2019 End: 2020 take 1 tablet by mouth every six hours as needed methocarbamol (ROBAXIN) 500 mg tablet Take 1 tablet by mouth four times daily as needed (back muscle spasm). 30 tablet 1 12/23/2019 08/10/2020 Discontinued methylPREDNISolone (1 source) Corticosteroid Start: 2020 End: 2020 methylPREDNISolone (MEDROL, KEENA,) 4 mg Dose-Pack Indications: Chronic pain of left knee , Arthritis of both knees Follow dosing instructions, take with food. 1 Package 05/27/2020 06/02/2020 nitrofurantoin, macrocrystals 25 mg / nitrofurantoin, monohydrate 75 mg oral capsule (6 sources) Nitrofuran Antibacterial Start: 2023 End: 2023 take 1 capsule by mouth twice daily nitrofurantoin monohydrate and macrocrystal (MACROBID) 100 mg capsule Take 1 capsule by mouth two times a day for 5 days. 10 capsule 12/02/2023 12/04/2023 Discontinued Start: 09-06-2023 End: 09-13-2023 take 1 capsule by mouth twice daily at mealtime nitrofurantoin monohydrate and macrocrystal (MACROBID) 100 mg capsule Indications: Malodorous urine , Acute cystitis without hematuria Take 1 capsule by mouth two times a day with meals for 7 days. 14 capsule 0 09/06/2023 09/13/2023 Active Start: 06-11-2023 End: 06-18-2023 take 1 capsule by mouth twice daily at mealtime nitrofurantoin monohydrate and macrocrystal (MACROBID) 100 mg capsule Indications: Acute cystitis without hematuria Take 1 capsule by mouth two times a day with meals for 7 days. 14 capsule 0 06/11/2023 06/18/2023 Active Comment on above: Take 1 capsule by mo ut two times a day with meals for 7 days. perflutren lipid microspheres 1.3 mL in NaCl (PF) 0.9% 10 mL injection (DEFINITY) (20 sources) Start: 06-13-2021 End: 09-12-2022 perflutren lipid microspheres 1.3 mL in NaCl (PF) 0.9% 10 mL injection (DEFINITY) Tavares (11 sources) Start: 01-09-2017 End: 06-28-2021 Pesary Discontinued 1 EACH TOPICAL NEEDED January 09, 2017 12:11pm June 28, 2021 4:05pm Start: 01-09-2017 End: 06-28-2021 Pesary Discontinued 1 NMA TO PICAL NEEDED as needed for PER PATIENT January 09, 2017 1:00am June 28, 2021 4:05pm Start: 01-09-2017 End: 06-28-2021 Tavares Discontinued 1 EACH T OPICAL NEEDED January 09, 2017 1:00am June 28, 2021 4:05pm predniSONE 20 mg oral tablet (7 sources) Start: 10-07-2023 End: 10-12-2023 take 2 tablets by mouth once daily predniSONE (DELTASONE) 20 mg tablet Indications: Finger pain, left , Rash Take 2 tablets by mouth once daily for 5 days. 10 tablet 10/07/2023 10/12/2023 Start: 07-04-2023 End: 07-09-2023 take 2 tablets by mouth once daily Prednisone 20 mg tablet Discontinued 40 mg PO DAILY July 09, 2023 12:00am July 09, 2023 11:49am Start: 02-08-2020 End: 02-13-2020 take 1 tablet by mouth twice daily predniSONE (DELTASONE) 20 mg tablet Indications: Chronic cough Take 1 tablet by mouth twice daily for 5 days. 10 tablet 02/08/2020 02/13/2020 125 ml sodium chloride 9 mg/ ml prefilled syringe (20 sources) Start: 06-13-2021 End: 09-12-2022 sodium chloride 0.9 % (flush ) 10 mL (BD POSIFLUSH) Problems Active Problems Problem Classification Problem Date Documented Da te Episodic/Chronic Anxiety disorders (20 sources) Mixed anxiety and depressive disorder; Translations: [Other specified anxiety disorders] Onset: 9 10-03-2018 Chronic Cardiac dysrhythmias (16 sources) Sinus bradycardia; Translations: [Bradycardia, unspecified] Episodic Chronic kidney disease (20 sources) Chronic kidney disease stage 3; Translations: [CKD (chronic kidney disease), stage III] 09-05-2020 Chronic Chronic kidney disease (1 source) Chronic kidney disease; Translations: [Stage 3b chronic kidney disease (HCC)] Onset: 1 Conditions associated with dizziness or vertigo (1 source) Dizziness and giddiness; Translations: [Dizziness] Onset: 5 Episodic Deficiency and other anemia (2 sources) Anemia; Translations: [Anemia, unspecified] Episodic Disorders of lipid metabolism (20 sources) Hyperlipidemia; Translations: [Hyperlipidemia, unspecified] Onset: 7 01-26-2015 Chronic E Codes: Fall (3 sources) Fall; Translations: [Unspecified fall, initial encounter] Onset: 5 06-29-2022 Episodic Esophageal disorders (20 sources) Gastroesophageal reflux disease; Translations: [Gastro-esophageal reflux disease without esophagitis] Onset: 0 03-02-2009 Chronic Essential hypertension (20 sources) Benign essential hypertension; Translations: [Essential (primary) hypertension] Onset: 7 10-24-2017 Chronic Fluid and electrolyte disorders (2 sources) Hyperkalemia; Translations: [Hypo-osmolality and hyponatremia] Onset: 5 Episodic Immunity disorders (20 sources) Patient immunocompromised; Translations: [Immunodeficiency, unspecified] Onset: 3 Chronic Leukemias (20 sources) Chronic lymphoid leukemia, disease; Translations: [Chronic lymphocytic leukemia of B-cell type not having achieved remission] Onset: 1 Chronic Malaise and fatigue (1 source) Fatigue; Translations: [Chronic fatigue, unspecified] Chronic Malaise and fatigue (5 sources) Fatigue; Translations: [Other fatigue] Onset: 5 Episodic Mood disorders (2 sources) Major depression, single episode; Translations: [Major depressive disorder, single episode, in full remission] Onset: 5 10-30-2024 Chronic Mycoses (1 source) Candidiasis of vagina; Translations: [Vaginal yeast infection] 04-17-2024 Episodic Non-Hodgkin`s lymphoma (20 sources) Non-Hodgkin's lymphoma (clinical); Translations: [Lymphoblastic (diffuse) lymphoma, 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] Onset: 4 03-11-2023 Chronic Non-Hodgkin`s lymphoma (1 source) History of malignant lymphoma; Translations: [Personal history of non-Hodgkin lymphomas] 07-09-2023 Episodic Nonspecific chest pain (14 sources) Chest pain; Translations: [Chest pain, unspecified] Episodic Nutritional deficiencies (20 sources) Vitamin D deficiency; Translations: [Vitamin D deficiency, unspecified] Onset: 0 09-06-2009 Chronic Osteoarthritis (20 sources) Bilateral arthritis of knees; Translations: [Bilateral primary osteoarthritis of knee] Onset: 3 03-04-2012 Chronic Other connective tissue disease (20 sources) History of repair of hip joint; Translations: [Presence of unspecified artificial hip joint] Onset: 3 09-23-2012 Chronic Other connective tissue disease (2 sources) Pain in finger of left hand; Translations: [Pain in left finger(s)] 10-07-2023 Episodic Other diseases of veins and lymphatics (1 source) Difficult venous access; Translations: [Other specified disorders of veins] 07-09-2023 Episodic Other gastrointestinal disorders (3 sources) Acute constipation; Translations: [Constipation, unspecified] 05-27-2022 Episodic Other infections; including parasitic (2 sources) Post-viral disorder; 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 Other inflammatory condition of skin (20 sources) Pityriasis rosea; Translations: [Pityriasis rosea] Onset: 1 04-21-2010 Chronic Other lower respiratory disease (20 sources) Dyspnea; Translations: [Shortness of breath] Episodic Other lower respiratory disease (5 sources) Dyspnea, unspecified; Translations: [Other respiratory abnormalities] Episodic Other lower respiratory disease (2 sources) Cough; Translations: [Acute cough] Episodic Other lower respiratory disease (3 sources) Cough; Translations: [Acute cough] 11-23-2021 Episodic Other lower respiratory disease (1 source) Chronic cough; Translations: [Chronic cough] 02-09-2020 Episodic Other lower respiratory disease (1 source) Hypoxia; Translations: [Hypoxemia] 07-09-2023 Episodic Other lower respiratory disease (1 source) Other forms of dyspnea; Translations: [JONES (dyspnea on exertion)] Onset: 5 Episodic Other nutritional; endocrine; and metabolic disorders (20 sources) Obese class I; Translations: [Obesity, unspecified] Onset: 1 05-27-2020 Chronic Other screening for suspected conditions (not mental disorders or infectious disease) (1 source) Thyroid function tests abnormal; Translations: [Abnormal results of thyroid function studies] 07-15-2023 Episodic Other skin disorders (1 source) Eruption; Translations: [Rash and other nonspecific skin eruption] 10-07-2023 Episodic Other skin disorders (1 source) Localized swelling, mass and lump, right lower limb; Translations: [Localized swelling, mass and lump, right lower limb] Onset: 5 Episodic Other upper respiratory disease (20 sources) Allergic rhinitis due to animal hair and dander; Translations: [Allergic rhinitis due to animal (cat) (dog) hair and dander] 03-21-2020 Chronic Other upper respiratory infections (4 sources) Acute upper respiratory infection; Translations: [Acute upper respiratory infection, unspecified] Episodic Otitis media and related conditions (3 sources) Finding of fluid behind tympanic membrane; Translations: [Unspecified nonsuppurative otitis media, right ear] 10-08-2022 Episodic Pneumonia (except that caused by tuberculosis or sexually transmitted disease) (2 sources) Infective pneumonia; Translations: [Pneumonia, unspecified organism] 07-15-2023 Episodic Residual codes; unclassified (11 sources) History of syncope; Translations: [Personal history of other specified conditions] 06-28-2021 Episodic Residual codes; unclassified (11 sources) History of chest pain; Translations: [Personal history of other specified conditions] 06-28-2021 Episodic Residual codes; unclassified (1 source) Pain; Translations: [Pain, unspecified] Episodic Residual codes; unclassified (1 source) Viral syndrome; Translations: [Other general symptoms and signs] 04-02-2024 Episodic Residual codes; unclassified (1 source) Amnesia; Translations: [Other amnesia] 10-30-2024 Episodic Residual codes; unclassified (1 source) Other amnesia; Translations: [Memory loss] Onset: 5 Episodic Rheumatoid arthritis and related disease (20 sources) Rheumatoid arthritis; Translations: [Rheumatoid arthritis, unspecified] Onset: 3 11-07-2021 Chronic Spondylosis; intervertebral disc disorders; other back problems (20 sources) Backache; Translations: [Dorsalgia, unspecified] Onset: 0 01-01-2005 Episodic Sprains and strains (2 sources) Sprain of ankle; Translations: [Sprain of unspecified ligament of left ankle, initial encounter] 06-29-2022 Episodic Superficial injury; contusion (2 sources) Contusion of foot; Translations: [Contusion of left foot, initial encounter] 06-29-2022 Episodic Syncope (2 sources) Syncope; Translations: [Syncope and collapse] 07-15-2023 Episodic Thyroid disorders (20 sources) Hypothyroidism; Translations: [Hypothyroidism, unspecified] 01-26-2015 Chronic Transient cerebral ischemia (2 sources) Cerebral ischemia; Translations: [Transient cerebral ischemic attack, unspecified] 07-15-2023 Chronic Unclassified (1 source) Acute right-sided low back pain without sciatica; Translations: [Acute right-sided low back pain without sciatica] Onset: 5 Unclassified (1 source) Acute cough; Translations: [Acute cough] Onset: 5 Past or Other Problems Problem Classification Problem Date Documented Date Episodic/Chronic Acute and unspecified renal failure (20 sources) Acute injury of kidney; Translations: [Acute kidney failure, unspecified] Onset: 08-02-2020 08-02-2020 Episodic Disorders of teeth and jaw (20 sources) Temporomandibular joint disorder; Translations: [Unspecified temporomandibular joint disorder, unspecified side] Onset: 10-10-2017 10-10-2017 Episodic Genitourinary symptoms and ill-defined conditions (8 sources) Increased frequency of urination; Translations: [Frequency of micturition] Onset: 04-17-2024 06-11-2023 Episodic Immunizations and screening for infectious disease (20 sources) Patient encounter status; Translations: [Encounter for immunization] Onset: 08-26-2014 Resolved: 08-26-2014 11-06-2022 Episodic Nausea and vomiting (2 sources) Nausea; Translations: [Nausea] Onset: 08-25-2024 08-25-2024 Episodic Other inflammatory condition of skin (20 sources) Other specified erythematous conditions; Translations: [Other specified erythematous conditions] Onset: 03-24-2010 03-24-2010 Episodic Other inflammatory condition of skin (20 sources) Itching of skin; Translations: [Pruritus, unspecified] Onset: 03-24-2010 03-24-2010 Episodic Other inflammatory condition of skin (20 sources) Pruritus, unspecified; Translations: [Unspecified pruritic disorder] Onset: 03-24-2010 03-24-2010 Episodic Other non-traumatic joint disorders (20 sources) Arthralgia of the pelvic region and thigh; Translations: [Pain in unspecified hip] Onset: 03-21-2012 03-21-2012 Episodic Other non-traumatic joint disorders (20 sources) Pain in left knee; Translations: [Pain in joint, lower leg] Onset: 06-10-2020 06-10-2020 Episodic Other skin disorders (20 sources) Asteatosis cutis; Translations: [Xerosis cutis] Onset: 03-24-2010 03-24-2010 Episodic Other skin disorders (20 sources) Seborrheic keratosis; Translations: [Other seborrheic keratosis] Onset: 06-13-2021 Episodic Thyroid disorders (11 sources) Atrophy of thyroid - acquired; Translations: [Atrophy of thyroid (acquired)] Onset: 01-26-2015 07-19-2023 Episodic Unclassified (11 sources) Right hip total replacement 06-28-2021 Urinary tract infections (6 sources) Acute cystitis; Translations: [Acute cystitis without hematuria] Onset: 05-12-2024 06-11-2023 Episodic Viral infection (20 sources) Viral exanthem; Translations: [Unspecified viral infection characterized by skin and mucous membrane lesions] Onset: 03-24-2010 03-24-2010 Episodic Results Test Name Value Interpretation Reference Range Facility CNPNon 12-22-2024 CNPN Normal [facility] CBC W Auto Differential pane l (Bld)on 12-10-2024 Basophils (Bld) [#/Vol] 0.14 10*3/uL High <0.11 [facility] Comment on above: Order Comment: Speci men Type: BLOOD SPECIMENOrdering Facility: [facility] Address: [address] [place] [address] Performed By: #### 5 7021-8 ####[facility] [id number] [place] [address] [place] Basophils/100 WBC (Bld) 1.7 % Normal [facility] Comment on above: Order Comment: Speci men Type: BLOOD SPECIMENOrdering Facility: [facility] Address: [address] [place] [address] Performed By: #### 5 7021-8 ####[facility] [id number] [place] [address] [place] Differential cell count method Nom (Bld) Auto Normal [facility] Comment on above: Order Comment: Speci men Type: BLOOD SPECIMENOrdering Facility: [facility] Address: [address] [place] [address] Performed By: #### 5 7021-8 ####[facility] [id number] [place] [address] [place] Eosinophils (Bld) [#/Vol] 0.11 10*3/uL Normal <0.46 [facility] Comment on above: Order Comment: Speci men Type: BLOOD SPECIMENOrdering Facility: [facility] Address: [address] [place] [address] Performed By: #### 5 7021-8 ####[facility]ILLWNCL[facility] [id number] [place] [address] [place] Eosinophils/100 WBC (Bld) 1.4 % Normal [facility] Comment on above: Order Comment: Speci men Type: BLOOD SPECIMENOrdering Facility: [facility] Address: [address] [place] [address] Performed By: #### 5 7021-8 ####[facility] [id number] [place] [address] [place] Erythrocyte distribution width (RBC) [Ratio] 14.0 % Normal 11.5-15.0 [facility] Comment on above: Order Comment: Speci men Type: BLOOD SPECIMENOrdering Facility: [facility] Address: [address] [place] [address] Performed By: #### 5 7021-8 ####[facility] [id number] [place] [address] [place] Hematocrit (Bld) [Volume fraction] 36.6 % Normal 36.0-46.0 [facility] Comment on above: Order Comment: Speci men Type: BLOOD SPECIMENOrdering Facility: [facility] Address: [address] [place] [address] Performed By: #### 5 7021-8 ####[facility] [id number] [place] [address] [place] Hemoglobin (Bld) [Mass/Vol] 12.5 g/dL Normal 11.5-15.5 [facility] Comment on above: Order Comment: Speci men Type: BLOOD SPECIMENOrdering Facility: [facility] Address: [address] [place] [address] Performed By: #### 5 7021-8 ####[facility]LES[facility]CL[facility] [id number] [place] [id number] [place] Immature granulocytes (Bld) [#/Vol] 0.04 10*3/uL Normal <0.10 [facility] Comment on above: Order Comment: Speci men Type: BLOOD SPECIMENOrdering Facility: [facility] Address: [address] [place] [address] Performed By: #### 5 7021-8 ####[facility] [id number] [place] [address] [place] Immature granulocytes/100 WBC (Bld) 0.5 % Normal [facility] Comment on above: Order Comment: Speci men Type: BLOOD SPECIMENOrdering Facility: [facility] Address: [address] [place] [address] Performed By: #### 5 7021-8 ####[facility] [id number] [place] [address] [place] Lymphocytes (Bld) [#/Vol] 1.45 10*3/uL Normal 1.00-4.00 [facility] Comment on above: Order Comment: Speci men Type: BLOOD SPECIMENOrdering Facility: [facility] Address: [address] [place] [address] Performed By: #### 5 7021-8 ####[facility] [id number] [place] [address] [place] Lymphocytes/100 WBC (Bld) 18.0 % Normal [facility] Comment on above: Order Comment: Speci men Type: BLOOD SPECIMENOrdering Facility: [facility] Address: [address] [place] [address] Performed By: #### 5 7021-8 ####[facility] [id number] [place] [address] [place] MCH (RBC) [Entitic mass] 31.1 pg Normal 26.0-34.0 [facility] Comment on above: Order Comment: Speci men Type: BLOOD SPECIMENOrdering Facility: [facility] Address: [address] [place] [address] Performed By: #### 5 7021-8 ####[facility] JEANE [id number] [place] [address] [place] MCHC (RBC) [Mass/Vol] 34.2 g/dL Normal 30.5-36.0 [facility] Comment on above: Order Comment: Speci men Type: BLOOD SPECIMENOrdering Facility: [facility] Address: [address] [place] [address] Performed By: #### 5 7021-8 ####[facility] NAPLESROSIE [id number] [place] [address] [place] MCV (RBC) [Entitic vol] 91.0 fL Normal 80.0-100.0 [facility] Comment on above: Order Comment: Speci men Type: BLOOD SPECIMENOrdering Facility: [facility] Address: [address] [place] [address] Performed By: #### 5 7021-8 ####[facility]LESROSIE [id number] [place] [address] [place] Monocytes (Bld) [#/Vol] 0.98 10*3/uL High <0.87 [facility] Comment on above: Order Comment: Speci men Type: BLOOD SPECIMENOrdering Facility: [facility] Address: [address] [place] [address] Performed By: #### 5 7021-8 ####[facility] NAPLESSHAINALIA [id number] [place] [address] [place] Monocytes/100 WBC (Bld) 12.2 % Normal [facility] Comment on above: Order Comment: Speci men Type: BLOOD SPECIMENOrdering Facility: [facility] Address: [address] [place] [address] Performed By: #### 5 7021-8 ####[facility] MILLTOWNCLIA [id number] [place] [address] [place] Neutrophils (Bld) [#/Vol] 5.34 10*3/uL Normal 1.45-7.50 [facility] Comment on above: Order Comment: Speci men Type: BLOOD SPECIMENOrdering Facility: [facility] Address: [address] [place] [address] Performed By: #### 5 7021-8 ####[facility] CENTERWNCLIA [id number] [place] [address] [place] Neutrophils/100 WBC (Bld) 66.2 % Normal [facility] Comment on above: Order Comment: Speci men Type: BLOOD SPECIMENOrdering Facility: [facility] Address: [address] [place] [address] Performed By: #### 5 7021-8 ####[facility] HOSPITALLIA [id number] [place] [address] [place] Nucleated RBC (Bld) [#/Vol] 10*3/uL Normal <0.01 [facility] Comment on above: Order Comment: Speci men Type: BLOOD SPECIMENOrdering Facility: [facility] Address: [address] [place] [address] Performed By: #### 5 7021-8 ####[facility]OSPITALL[facility] [id number] [place] [address] [place] Nucleated RBC/100 WBC (Bld) [Ratio] 0.0 /100 WBC Normal [facility] Comment on above: Order Comment: Speci men Type: BLOOD SPECIMENOrdering Facility: [facility] Address: [address] [place] [address] Performed By: #### 5 7021-8 ####[facility] NAPLESNCLIA [id number] [place] [address] [place] Platelet mean volume (Bld) [Entitic vol] 10.0 fL Normal 9.0-12.7 [facility] Comment on above: Order Comment: Speci men Type: BLOOD SPECIMENOrdering Facility: [facility] Address: [address] [place] [address] Performed By: #### 5 7021-8 ####[facility] NAPLESNCLIA [id number] [place] [address] [place] Platelets (Bld) [#/Vol] 298 10*3/uL Normal 150-400 [facility] Comment on above: Order Comment: Speci men Type: BLOOD SPECIMENOrdering Facility: [facility] Address: [address] [place] [address] Performed By: #### 5 7021-8 ####[facility] NAPLESNCA [id number] [place] [address] [place] RBC (Bld) [#/Vol] 4.02 10*6/uL Normal 3.90-5.20 [facility] Comment on above: Order Comment: Speci men Type: BLOOD SPECIMENOrdering Facility: [facility] Address: [address] [place] [address] Performed By: #### 5 7021-8 ####[facility] NAPLESNCLIA [id number] [place] [address] [place] WBC (Bld) [#/Vol] 8.06 10*3/uL Normal 3.70-11.00 [facility] Comment on above: Order Comment: Speci men Type: BLOOD SPECIMENOrdering Facility: [facility] Address: [address] [place] [address] Performed By: #### 5 7021-8 ####[facility] CENTERWNCLIA [id number] [place] [address] [place] Comprehensive metabolic 2000 panelon 12-10-2024 Albumin [Mass/Vol] 4.2 g/dL Normal 3.9-4.9 [facility] Comment on above: Order Comment: Speci men Type: BLOOD SPECIMENOrdering Facility: [facility] Address: [address] [place] [address] Performed By: #### 2 4323-8 ####[facility] CRISTOFER MILLWNCLIA [id number] [place] [address] [place] ALP [Catalytic activity/Vol] 108 U/L Normal 34-123 [facility] Comment on above: Order Comment: Speci men Type: BLOOD SPECIMENOrdering Facility: [facility] Address: [address] [place] [address] Performed By: #### 2 4323-8 ####[facility] MILLWNCLIA [id number] [place] [address] [place] ALT [Catalytic activity/Vol] 11 U/L Normal 7-38 [facility] Comment on above: Order Comment: Speci men Type: BLOOD SPECIMENOrdering Facility: [facility] Address: [address] [place] [address] Performed By: #### 2 4323-8 ####[facility] HOSPITALLIA [id number] [place] [address] [place] Anion gap [Moles/Vol] 13 mmol/L Normal 8-15 [facility] Comment on above: Order Comment: Speci men Type: BLOOD SPECIMENOrdering Facility: [facility] Address: [address] [place] [address] Performed By: #### 2 4323-8 ####[facility] CENTERWNCLIA [id number] [place] [address] [place] AST [Catalytic activity/Vol] 16 U/L Normal 13-35 [facility] Comment on above: Order Comment: Speci men Type: BLOOD SPECIMENOrdering Facility: [facility] Address: [address] [place] [address] Performed By: #### 2 4323-8 ####[facility] CRISTOFER MILLTOWNCLIA [id number] [place] [address] [place] Bilirubin [Mass/Vol] 0.4 mg/dL Normal 0.2-1.3 [facility] Comment on above: Order Comment: Speci men Type: BLOOD SPECIMENOrdering Facility: [facility] Address: [address] [place] [address] Performed By: #### 2 4323-8 ####[facility] MILLTOWNCLIA [id number] [place] [address] [place] Calcium [Mass/Vol] 8.9 mg/dL Normal 8.5-10.2 [facility] Comment on above: Order Comment: Speci men Type: BLOOD SPECIMENOrdering Facility: [facility] Address: [address] [place] [address] Performed By: #### 2 4323-8 ####[facility] CENTERWNCLIA [id number] [place] [address] [place] Chloride [Moles/Vol] 102 mmol/L Normal 98-107 [facility] Comment on above: Order Comment: Speci men Type: BLOOD SPECIMENOrdering Facility: [facility] Address: [address] [place] [address] Performed By: #### 2 4323-8 ####[facility] MILLTOWNCLIA [id number] [place] [address] [place] CO2 [Moles/Vol] 22 mmol/L Normal 22-30 [facility] Comment on above: Order Comment: Speci men Type: BLOOD SPECIMENOrdering Facility: [facility] Address: [address] [place], [place] [address] Performed By: #### 2 4323-8 ####[facility] MILLWNCLIA [id number] [place] [address] [place] Creatinine [Mass/Vol] 1.18 mg/dL High 0.58-0.96 [facility] Comment on above: Order Comment: Kristin canales Type: BLOOD SPECIMENOrdering Facility: [facility] Address: [address] [place] [address] Performed By: #### 2 4323-8 ####[facility] [id number] [place] [address] [place] eGFRcr SerPlBld CKD-EPI 2020 47 mL/min/1.73m??? Low >=60 [facility] Comment on above: Order Comment: Kristin canales Type: BLOOD SPECIMENOrdering Facility: [facility] Address: [address] [place] [address] Result Comment: Norma mated Glomerular Filtration Rate (eGFR) is calculated using the 2020 CKD-EPI creatinine equation. This equation utilizes serum creatinine, sex, and age as parameters. The creatinine assay has traceable calibration to isotope dilution-mass spectrometry. Refer to KDIGO guidelines for clinical interpretation. In patients with unstable renal function, e.g. those with acute kidney injury, the eGFR may not accurately reflect actual GFR. Performed By: #### 2 4323-8 ####[facility] [id number] [place] [address] [place] Glucose [Mass/Vol] 91 mg/dL Normal 74-99 [facility] Comment on above: Order Comment: Kristin canales Type: BLOOD SPECIMENOrdering Facility: [facility] Address: [address] [place] [address] Result Comment: The Stateless Diabetes Association (ADA) provides guidance for cutoff values for fasting glucose and random glucose. The ADA defines fasting as no caloric intake for at least 8 hours. Fasting plasma glucose results between 100 to 125 mg/dL indicate increased risk for diabetes (prediabetes).Fasting plasma glucose results greater than or equal to 126 mg/dL meet the criteria for diagnosis of diabetes. In the absence of unequivocal hyperglycemia, results should be confirmed by repeat testing. In a patient with classic symptoms of hyperglycemia or hyperglycemic crisis, random plasma glucose results greater than or equal to 200 mg/dL meet the criteria for diagnosis of diabetes.Reference: Standards of Medical Care in Diabetes 2016, Stateless Diabetes Association. Diabetes Care. 2016.39(Suppl 1). Performed By: #### 2 4323-8 ####[facility] CRISTOFER MARTINJEFF [id number] [place] [address] [place] Potassium [Moles/Vol] 4.1 mmol/L Normal 3.7-5.1 [facility] Comment on above: Order Comment: Speci men Type: BLOOD SPECIMENOrdering Facility: [facility] Address: [address] [place], [place] [address] Performed By: #### 2 4323-8 ####[facility] NAPLESROSIE [id number] [place] [address] [place] Protein [Mass/Vol] 6.8 g/dL Normal 6.3-8.0 [facility] Comment on above: Order Comment: Speci men Type: BLOOD SPECIMENOrdering Facility: [facility] Address: [address] [place], [place] [address] Performed By: #### 2 4323-8 ####[facility] HOSPITALERVIN [id number] [place] [address] [place] Sodium [Moles/Vol] 137 mmol/L Normal 136-144 [facility] Comment on above: Order Comment: Speci men Type: BLOOD SPECIMENOrdering Facility: [facility] Address: [address] [place] [address] Performed By: #### 2 4323-8 ####[facility] NAPLESNCLISolitario [id number] [place] [address] [place] Urea nitrogen [Mass/Vol] 13 mg/dL Normal 7-21 [facility] Comment on above: Order Comment: Speci men Type: BLOOD SPECIMENOrdering Facility: [facility] Address: [address] [place] [address] Performed By: #### 2 4323-8 ####[facility] MILLTOWNCLIA [id number] [place] [address] [place] CBC W Auto Differential pane l (Bld)on 11-10-2024 Basophils (Bld) [#/Vol] 0.14 10*3/uL High <0.11 [facility] Comment on above: Order Comment: Speci men Type: BLOOD SPECIMENOrdering Facility: [facility] Address: [address] [place] [address] Performed By: #### 5 7021-8 ####[facility]OSPITALL[facility] [id number] [place] [address] [place] Basophils/100 WBC (Bld) 1.7 % Normal [facility] Comment on above: Order Comment: Speci men Type: BLOOD SPECIMENOrdering Facility: [facility] Address: [address] [place] [address] Performed By: #### 5 7021-8 ####[facility] [id number] [place] [address] [place] Differential cell count method Nom (Bld) Auto Normal [facility] Comment on above: Order Comment: Speci men Type: BLOOD SPECIMENOrdering Facility: [facility] Address: [address] [place] [address] Performed By: #### 5 7021-8 ####[facility] NAPLESNCLIA [id number] [place] [address] [place] Eosinophils (Bld) [#/Vol] 0.09 10*3/uL Normal <0.46 [facility] Comment on above: Order Comment: Speci men Type: BLOOD SPECIMENOrdering Facility: [facility] Address: [address] [place] [address] Performed By: #### 5 7021-8 ####[facility] NAPLESSHAINALIA [id number] [place] [address] [place] Eosinophils/100 WBC (Bld) 1.1 % Normal [facility] Comment on above: Order Comment: Speci men Type: BLOOD SPECIMENOrdering Facility: [facility] Address: [address] [place] [address] Performed By: #### 5 7021-8 ####[facility] NAPLESNCСЕРГЕЙA [id number] [place] [address] [place] Erythrocyte distribution width (RBC) [Ratio] 14.5 % Normal 11.5-15.0 [facility] Comment on above: Order Comment: Speci men Type: BLOOD SPECIMENOrdering Facility: [facility] Address: [address] [place] [address] Performed By: #### 5 7021-8 ####[facility] NAPLESNCLI [id number] [place] [address] [place] Hematocrit (Bld) [Volume fraction] 37.9 % Normal 36.0-46.0 [facility] Comment on above: Order Comment: Speci men Type: BLOOD SPECIMENOrdering Facility: [facility] Address: [address] [place] [address] Performed By: #### 5 7021-8 ####[facility] NAPLESNCLIA [id number] [place] [address] [place] Hemoglobin (Bld) [Mass/Vol] 12.6 g/dL Normal 11.5-15.5 [facility] Comment on above: Order Comment: Speci men Type: BLOOD SPECIMENOrdering Facility: [facility] Address: [address] [place] [address] Performed By: #### 5 7021-8 ####[facility] NAPLESNCLIA [id number] [place] [address] [place] Immature granulocytes (Bld) [#/Vol] 0.06 10*3/uL Normal <0.10 [facility] Comment on above: Order Comment: Speci men Type: BLOOD SPECIMENOrdering Facility: [facility] Address: [address] [place] [address] Performed By: #### 5 7021-8 ####[facility] VERONICAKATTY [id number] [place] [address] [place] Immature granulocytes/100 WBC (Bld) 0.7 % Normal [facility] Comment on above: Order Comment: Speci men Type: BLOOD SPECIMENOrdering Facility: [facility] Address: [address] [place] [address] Performed By: #### 5 7021-8 ####[facility] NAPLESNCUNIVERSITY [facility] [id number] [place] [address] [place] Lymphocytes (Bld) [#/Vol] 1.73 10*3/uL Normal 1.00-4.00 [facility] Comment on above: Order Comment: Speci men Type: BLOOD SPECIMENOrdering Facility: [facility] Address: [address] [place] [address] Performed By: #### 5 7021-8 ####[facility] [id number] [place] [address] [place] Lymphocytes/100 WBC (Bld) 21.5 % Normal [facility] Comment on above: Order Comment: Speci men Type: BLOOD SPECIMENOrdering Facility: [facility] Address: [address] [place] [address] Performed By: #### 5 7021-8 ####[facility] HOSPITALLI [id number] [place] [address] [place] MCH (RBC) [Entitic mass] 31.3 pg Normal 26.0-34.0 [facility] Comment on above: Order Comment: Speci men Type: BLOOD SPECIMENOrdering Facility: [facility] Address: [address] [place] [address] Performed By: #### 5 7021-8 ####[facility] HOSPITALLIA [id number] [place] [address] [place] MCHC (RBC) [Mass/Vol] 33.2 g/dL Normal 30.5-36.0 [facility] Comment on above: Order Comment: Speci men Type: BLOOD SPECIMENOrdering Facility: [facility] Address: [address] [place] [address] Performed By: #### 5 7021-8 ####[facility] [id number] [place] [address] [place] MCV (RBC) [Entitic vol] 94.3 fL Normal 80.0-100.0 [facility] Comment on above: Order Comment: Speci men Type: BLOOD SPECIMENOrdering Facility: [facility] Address: [address] [place] [address] Performed By: #### 5 7021-8 ####[facility] [id number] [place] [address] [place] Monocytes (Bld) [#/Vol] 1.08 10*3/uL High <0.87 [facility] Comment on above: Order Comment: Speci men Type: BLOOD SPECIMENOrdering Facility: [facility] Address: [address] [place] [address] Performed By: #### 5 7021-8 ####[facility] [id number] [place] [address] [place] Monocytes/100 WBC (Bld) 13.4 % Normal [facility] Comment on above: Order Comment: Speci men Type: BLOOD SPECIMENOrdering Facility: [facility] Address: [address] [place] [address] Performed By: #### 5 7021-8 ####[facility] NAPLESNCUNIVERSITY OF [facility] [id number] [place] [address] [place] Neutrophils (Bld) [#/Vol] 4.96 10*3/uL Normal 1.45-7.50 [facility] Comment on above: Order Comment: Speci men Type: BLOOD SPECIMENOrdering Facility: [facility] Address: [address] [place] [address] Performed By: #### 5 7021-8 ####[facility]OSPITALLIA [id number] [place] [address] [place] Neutrophils/100 WBC (Bld) 61.6 % Normal [facility] Comment on above: Order Comment: Speci men Type: BLOOD SPECIMENOrdering Facility: [facility] Address: [address] [place] [address] Performed By: #### 5 7021-8 ####[facility] NAPLESNCUNIVERSITY OF [facility] [id number] [place] [address] [place] Nucleated RBC (Bld) [#/Vol] 10*3/uL Normal <0.01 [facility] Comment on above: Order Comment: Speci men Type: BLOOD SPECIMENOrdering Facility: [facility] Address: [address] [place] [address] Performed By: #### 5 7021-8 ####[facility] [id number] [place] [address] [place] Nucleated RBC/100 WBC (Bld) [Ratio] 0.0 /100 WBC Normal [facility] Comment on above: Order Comment: Speci men Type: BLOOD SPECIMENOrdering Facility: [facility] Address: [address] [place] [address] Performed By: #### 5 7021-8 ####[facility] NAPLESNCLI [id number] [place] [address] [place] Platelet mean volume (Bld) [Entitic vol] 10.0 fL Normal 9.0-12.7 [facility] Comment on above: Order Comment: Speci men Type: BLOOD SPECIMENOrdering Facility: [facility] Address: [address] [place] [address] Performed By: #### 5 7021-8 ####[facility] KHADRANCLIA [id number] [place] [address] [place] Platelets (Bld) [#/Vol] 329 10*3/uL Normal 150-400 [facility] Comment on above: Order Comment: Speci men Type: BLOOD SPECIMENOrdering Facility: [facility] Address: [address] [place] [address] Performed By: #### 5 7021-8 ####[facility] VERONICASoniaNCLIA [id number] [place] [address] [place] RBC (Bld) [#/Vol] 4.02 10*6/uL Normal 3.90-5.20 [facility] Comment on above: Order Comment: Speci men Type: BLOOD SPECIMENOrdering Facility: [facility] Address: [address] [place] [address] Performed By: #### 5 7021-8 ####[facility] NAPLESNCLIA [id number] [place] [address] [place] WBC (Bld) [#/Vol] 8.06 10*3/uL Normal 3.70-11.00 [facility] Comment on above: Order Comment: Speci men Type: BLOOD SPECIMENOrdering Facility: [facility] Address: [address] [place] [address] Performed By: #### 5 7021-8 ####[facility] NAPLESNCLIA [id number] [place] [address] [place] Comprehensive metabolic 2000 panelon 11-10-2024 Albumin [Mass/Vol] 4.1 g/dL Normal 3.9-4.9 [facility] Comment on above: Order Comment: Speci men Type: BLOOD SPECIMENOrdering Facility: [facility] Address: [address] [place] [address] Performed By: #### 2 4323-8 ####[facility] MILLWNCLIA [id number] [place] [address] [place] ALP [Catalytic activity/Vol] 110 U/L Normal 34-123 [facility] Comment on above: Order Comment: Speci men Type: BLOOD SPECIMENOrdering Facility: [facility] Address: [address] [place] [address] Performed By: #### 2 4323-8 ####[facility] MILLWNCLIA [id number] [place] [address] [place] ALT [Catalytic activity/Vol] 12 U/L Normal 7-38 [facility] Comment on above: Order Comment: Speci men Type: BLOOD SPECIMENOrdering Facility: [facility] Address: [address] [place] [address] Performed By: #### 2 4323-8 ####[facility] NAPLESNCLIA [id number] [place] [address] [place] Anion gap [Moles/Vol] 12 mmol/L Normal 8-15 [facility] Comment on above: Order Comment: Speci men Type: BLOOD SPECIMENOrdering Facility: [facility] Address: [address] [place] [address] Performed By: #### 2 4323-8 ####[facility] MILLTOWNCLIA [id number] [place] [address] [place] AST [Catalytic activity/Vol] 18 U/L Normal 13-35 [facility] Comment on above: Order Comment: Speci men Type: BLOOD SPECIMENOrdering Facility: [facility] Address: [address] [place] [address] Performed By: #### 2 4323-8 ####[facility] CENTERWNCLIA [id number] [place] [address] [place] Bilirubin [Mass/Vol] 0.3 mg/dL Normal 0.2-1.3 [facility] Comment on above: Order Comment: Speci men Type: BLOOD SPECIMENOrdering Facility: [facility] Address: [address] [place] [address] Performed By: #### 2 4323-8 ####[facility] CENTERWSHAINALIA [id number] [place] [address] [place] Calcium [Mass/Vol] 9.4 mg/dL Normal 8.5-10.2 [facility] Comment on above: Order Comment: Speci men Type: BLOOD SPECIMENOrdering Facility: [facility] Address: [address] [place] [address] Performed By: #### 2 4323-8 ####[facility] NAPLESNCLIA [id number] [place] [address] [place] Chloride [Moles/Vol] 101 mmol/L Normal 98-107 [facility] Comment on above: Order Comment: Speci men Type: BLOOD SPECIMENOrdering Facility: [facility] Address: [address] [place] [address] Performed By: #### 2 4323-8 ####[facility] NAPLESNCLIA [id number] [place] [address] [place] CO2 [Moles/Vol] 25 mmol/L Normal 22-30 [facility] Comment on above: Order Comment: Speci men Type: BLOOD SPECIMENOrdering Facility: [facility] Address: [address] [place] [address] Performed By: #### 2 4323-8 ####[facility] NAPLESNCLIA [id number] [place] [address] [place] Creatinine [Mass/Vol] 1.18 mg/dL High 0.58-0.96 [facility] Comment on above: Order Comment: Speci men Type: BLOOD SPECIMENOrdering Facility: [facility] Address: [address] [place] [address] Performed By: #### 2 4323-8 ####[facility] [id number] [place] [address] [place] eGFRcr SerPlBld CKD-EPI 2020 47 mL/min/1.73m??? Low >=60 [facility] Comment on above: Order Comment: Kristin canales Type: BLOOD SPECIMENOrdering Facility: [facility] Address: [address] [place] [address] Result Comment: Norma mated Glomerular Filtration Rate (eGFR) is calculated using the 2020 CKD-EPI creatinine equation. This equation utilizes serum creatinine, sex, and age as parameters. The creatinine assay has traceable calibration to isotope dilution-mass spectrometry. Refer to KDIGO guidelines for clinical interpretation. In patients with unstable renal function, e.g. those with acute kidney injury, the eGFR may not accurately reflect actual GFR. Performed By: #### 2 4323-8 ####[facility]IT[facility] [id number] [place] [address] [place] Glucose [Mass/Vol] 72 mg/dL Low 74-99 [facility] Comment on above: Order Comment: Kristin canales Type: BLOOD SPECIMENOrdering Facility: [facility] Address: [address] [place] [address] Result Comment: The Stateless Diabetes Association (ADA) provides guidance for cutoff values for fasting glucose and random glucose. The ADA defines fasting as no caloric intake for at least 8 hours. Fasting plasma glucose results between 100 to 125 mg/dL indicate increased risk for diabetes (prediabetes).Fasting plasma glucose results greater than or equal to 126 mg/dL meet the criteria for diagnosis of diabetes. In the absence of unequivocal hyperglycemia, results should be confirmed by repeat testing. In a patient with classic symptoms of hyperglycemia or hyperglycemic crisis, random plasma glucose results greater than or equal to 200 mg/dL meet the criteria for diagnosis of diabetes.Reference: Standards of Medical Care in Diabetes 2016, Stateless Diabetes Association. Diabetes Care. 2016.39(Suppl 1). Performed By: #### 2 4323-8 ####[facility] MILLTOWNCLIA [id number] [place] [address] [place] Potassium [Moles/Vol] 4.1 mmol/L Normal 3.7-5.1 [facility] Comment on above: Order Comment: Speci men Type: BLOOD SPECIMENOrdering Facility: [facility] Address: [address] [place] [address] Performed By: #### 2 4323-8 ####[facility] MILLTOWNCLIA [id number] [place] [address] [place] Protein [Mass/Vol] 6.9 g/dL Normal 6.3-8.0 [facility] Comment on above: Order Comment: Speci men Type: BLOOD SPECIMENOrdering Facility: [facility] Address: [address] [place] [address] Performed By: #### 2 4323-8 ####[facility] CENTERWNCLIA [id number] [place] [address] [place] Sodium [Moles/Vol] 138 mmol/L Normal 136-144 [facility] Comment on above: Order Comment: Speci men Type: BLOOD SPECIMENOrdering Facility: [facility] Address: [address] [place] [address] Performed By: #### 2 4323-8 ####[facility] MILLTOWNCLIA [id number] [place] [address] [place] Urea nitrogen [Mass/Vol] 14 mg/dL Normal 7-21 [facility] Comment on above: Order Comment: Speci men Type: BLOOD SPECIMENOrdering Facility: [facility] Address: [address] [place] [address] Performed By: #### 2 4323-8 ####[facility] MILLWNCLIA [id number] [place] [address] [place] CNOVon 10-30-2024 CNOV Normal [facility] CBC W Auto Differential pane l (Bld)on 10-08-2024 Basophils (Bld) [#/Vol] 0.13 10*3/uL High <0.11 [facility] Comment on above: Order Comment: Speci men Type: BLOOD SPECIMENOrdering Facility: [facility] Address: [address] [place] [address] Performed By: #### 5 7021-8 ####[facility] MILLWNCLIA [id number] [place] [address] [place] Basophils/100 WBC (Bld) 1.6 % Normal [facility] Comment on above: Order Comment: Speci men Type: BLOOD SPECIMENOrdering Facility: [facility] Address: [address] [place] [address] Performed By: #### 5 7021-8 ####[facility] [id number] [place] [address] [place] Differential cell count method Nom (Bld) Auto Normal [facility] Comment on above: Order Comment: Speci men Type: BLOOD SPECIMENOrdering Facility: [facility] Address: [address] [place] [address] Performed By: #### 5 7021-8 ####[facility] [id number] [place] [address] [place] Eosinophils (Bld) [#/Vol] 0.11 10*3/uL Normal <0.46 [facility] Comment on above: Order Comment: Speci men Type: BLOOD SPECIMENOrdering Facility: [facility] Address: [address] [place] [address] Performed By: #### 5 7021-8 ####[facility] [id number] [place] [address] [place] Eosinophils/100 WBC (Bld) 1.4 % Normal [facility] Comment on above: Order Comment: Speci men Type: BLOOD SPECIMENOrdering Facility: [facility] Address: [address] [place] [address] Performed By: #### 5 7021-8 ####[facility] NAPLESNCСЕРГЕЙ [id number] [place] [address] [place] Erythrocyte distribution width (RBC) [Ratio] 14.1 % Normal 11.5-15.0 [facility] Comment on above: Order Comment: Speci men Type: BLOOD SPECIMENOrdering Facility: [facility] Address: [address] [place] [address] Performed By: #### 5 7021-8 ####[facility] NAPLESNCLI [id number] [place] [address] [place] Hematocrit (Bld) [Volume fraction] 34.9 % Low 36.0-46.0 [facility] Comment on above: Order Comment: Speci men Type: BLOOD SPECIMENOrdering Facility: [facility] Address: [address] [place] [address] Performed By: #### 5 7021-8 ####[facility] [id number] [place] [address] [place] Hemoglobin (Bld) [Mass/Vol] 11.5 g/dL Normal 11.5-15.5 [facility] Comment on above: Order Comment: Speci men Type: BLOOD SPECIMENOrdering Facility: [facility] Address: [address] [place] [address] Performed By: #### 5 7021-8 ####[facility]NCUN[facility] [id number] [place] [address] [place] Immature granulocytes (Bld) [#/Vol] 0.03 10*3/uL Normal <0.10 [facility] Comment on above: Order Comment: Speci men Type: BLOOD SPECIMENOrdering Facility: [facility] Address: [address] [place] [address] Performed By: #### 5 7021-8 ####[facility] [id number] [place] [address] [place] [facility] Immature granulocytes/100 WBC (Bld) 0.4 % Normal [facility] Comment on above: Order Comment: Speci men Type: BLOOD SPECIMENOrdering Facility: [facility] Address: [address] [place] [address] Performed By: #### 5 7021-8 ####[facility] NAPLESNCLIA [id number] [place] [address] [place] Lymphocytes (Bld) [#/Vol] 1.35 10*3/uL Normal 1.00-4.00 [facility] Comment on above: Order Comment: Speci men Type: BLOOD SPECIMENOrdering Facility: [facility] Address: [address] [place] [address] Performed By: #### 5 7021-8 ####[facility] [id number] [place] [address] [place] Lymphocytes/100 WBC (Bld) 16.8 % Normal [facility] Comment on above: Order Comment: Speci men Type: BLOOD SPECIMENOrdering Facility: [facility] Address: [address] [place] [address] Performed By: #### 5 7021-8 ####[facility] [id number] [place] [address] [place] MCH (RBC) [Entitic mass] 30.9 pg Normal 26.0-34.0 [facility] Comment on above: Order Comment: Speci men Type: BLOOD SPECIMENOrdering Facility: [facility] Address: [address] [place] [address] Performed By: #### 5 7021-8 ####[facility] [id number] [place] [address] [place] MCHC (RBC) [Mass/Vol] 33.0 g/dL Normal 30.5-36.0 [facility] Comment on above: Order Comment: Speci men Type: BLOOD SPECIMENOrdering Facility: [facility] Address: [address] [place] [address] Performed By: #### 5 7021-8 ####[facility] NAPLESROSIE [id number] [place] [address] [place] MCV (RBC) [Entitic vol] 93.8 fL Normal 80.0-100.0 [facility] Comment on above: Order Comment: Speci men Type: BLOOD SPECIMENOrdering Facility: [facility] Address: [address] [place] [address] Performed By: #### 5 7021-8 ####[facility] NAPLESROSIE [id number] [place] [address] [place] Monocytes (Bld) [#/Vol] 0.92 10*3/uL High <0.87 [facility] Comment on above: Order Comment: Speci men Type: BLOOD SPECIMENOrdering Facility: [facility] Address: [address] [place] [address] Performed By: #### 5 7021-8 ####[facility] NAPLESROSIE [id number] [place] [address] [place] Monocytes/100 WBC (Bld) 11.4 % Normal [facility] Comment on above: Order Comment: Speci men Type: BLOOD SPECIMENOrdering Facility: [facility] Address: [address] [place] [address] Performed By: #### 5 7021-8 ####[facility] [id number] [place] [address] [place] Neutrophils (Bld) [#/Vol] 5.50 10*3/uL Normal 1.45-7.50 [facility] Comment on above: Order Comment: Speci men Type: BLOOD SPECIMENOrdering Facility: [facility] Address: [address] [place] [address] Performed By: #### 5 7021-8 ####[facility] [id number] [place] [address] [place] Neutrophils/100 WBC (Bld) 68.4 % Normal [facility] Comment on above: Order Comment: Speci men Type: BLOOD SPECIMENOrdering Facility: [facility] Address: [address] [place] [address] Performed By: #### 5 7021-8 ####[facility] [id number] [place] [address] [place] Nucleated RBC (Bld) [#/Vol] 10*3/uL Normal <0.01 [facility] Comment on above: Order Comment: Speci men Type: BLOOD SPECIMENOrdering Facility: [facility] Address: [address] [place] [address] Performed By: #### 5 7021-8 ####[facility] [id number] [place] [address] [place] Nucleated RBC/100 WBC (Bld) [Ratio] 0.0 /100 WBC Normal [facility] Comment on above: Order Comment: Speci men Type: BLOOD SPECIMENOrdering Facility: [facility] Address: [address] [place] [address] Performed By: #### 5 7021-8 ####[facility] [id number] [place] [address] [place] Platelet mean volume (Bld) [Entitic vol] 9.2 fL Normal 9.0-12.7 [facility] Comment on above: Order Comment: Speci men Type: BLOOD SPECIMENOrdering Facility: [facility] Address: [address] [place] [address] [place] [address] Performed By: #### 5 7021-8 ####[facility] VERONICACHEIKHA [id number] [place] [address] [place] Platelets (Bld) [#/Vol] 367 10*3/uL Normal 150-400 [facility] Comment on above: Order Comment: Speci men Type: BLOOD SPECIMENOrdering Facility: [facility] Address: [address] [place], [place] [address] Performed By: #### 5 7021-8 ####[facility] VERONICAHAGER CITYNCLIA [id number] [place] [address] [place] RBC (Bld) [#/Vol] 3.72 10*6/uL Low 3.90-5.20 [facility] Comment on above: Order Comment: Speci men Type: BLOOD SPECIMENOrdering Facility: [facility] Address: [address] [place] [address] Performed By: #### 5 7021-8 ####[facility] [id number] [place] [address] [place] WBC (Bld) [#/Vol] 8.04 10*3/uL Normal 3.70-11.00 [facility] Comment on above: Order Comment: Speci men Type: BLOOD SPECIMENOrdering Facility: [facility] Address: [address] [place] [address] Performed By: #### 5 7021-8 ####[facility] NAPLESNCLIA [id number] [place] [address] [place] CNOVSPon 10-08-2024 CNOVSP Normal [facility] Comprehensive metabolic 2000 panelon 10-08-2024 Albumin [Mass/Vol] 4.3 g/dL Normal 3.9-4.9 [facility] Comment on above: Order Comment: Speci men Type: BLOOD SPECIMENOrdering Facility: [facility] Address: [address] [place] [address] Performed By: #### 1 9123-9, 83256-4 ####[facility] MILLTOWNCLIA [id number] [place] [address] [place] ALP [Catalytic activity/Vol] 104 U/L Normal 34-123 [facility] Comment on above: Order Comment: Speci men Type: BLOOD SPECIMENOrdering Facility: [facility] Address: [address] [place] [address] Performed By: #### 1 9123-9, 14951-9 ####[facility] MILLTOWSHAINALIA [id number] [place] [address] [place] ALT [Catalytic activity/Vol] 10 U/L Normal 7-38 [facility] Comment on above: Order Comment: Speci men Type: BLOOD SPECIMENOrdering Facility: [facility] Address: [address] [place] [address] Performed By: #### 1 9123-9, 84413-9 ####[facility] MILLJEANNINEWSHAINALIA [id number] [place] [address] [place] Anion gap [Moles/Vol] 11 mmol/L Normal 8-15 [facility] Comment on above: Order Comment: Speci men Type: BLOOD SPECIMENOrdering Facility: [facility] Address: [address] [place] [address] Performed By: #### 1 9123-9, 19083-8 ####[facility] MILLTOWNCLIA [id number] [place] [address] [place] AST [Catalytic activity/Vol] 14 U/L Normal 13-35 [facility] Comment on above: Order Comment: Speci men Type: BLOOD SPECIMENOrdering Facility: [facility] Address: [address] [place] [address] Performed By: #### 1 9123-9, 73222-0 ####[facility] MILLTOWNCLIA [id number] [place] [address] [place] Bilirubin [Mass/Vol] 0.4 mg/dL Normal 0.2-1.3 [facility] Comment on above: Order Comment: Speci men Type: BLOOD SPECIMENOrdering Facility: [facility] Address: [address] [place] [address] Performed By: #### 1 9123-9, 75758-5 ####[facility] MILLTOWNCLIA [id number] [place] [address] [place] Calcium [Mass/Vol] 9.5 mg/dL Normal 8.5-10.2 [facility] Comment on above: Order Comment: Speci men Type: BLOOD SPECIMENOrdering Facility: [facility] Address: [address] [place] [address] Performed By: #### 1 9123-9, 48501-7 ####[facility]ENTERWNCLIA [id number] [place] [address] [place] Chloride [Moles/Vol] 101 mmol/L Normal 98-107 [facility] Comment on above: Order Comment: Speci men Type: BLOOD SPECIMENOrdering Facility: [facility] Address: [address] [place] [address] Performed By: #### 1 9123-9, 93906-5 ####[facility] MILLTOWNCLIA [id number] [place] [address] [place] CO2 [Moles/Vol] 23 mmol/L Normal 22-30 [facility] Comment on above: Order Comment: Speci men Type: BLOOD SPECIMENOrdering Facility: [facility] Address: [address] [place] [address] Performed By: #### 1 9123-9, 28108-6 ####[facility] MILLTOWNCLIA [id number] [place] [address] [place] Creatinine [Mass/Vol] 1.06 mg/dL High 0.58-0.96 [facility] Comment on above: Order Comment: Kristin canales Type: BLOOD SPECIMENOrdering Facility: [facility] Address: [address] [place] [address] Performed By: #### 1 9123-9, 83796-3 ####[facility] [id number] [place] [address] [place] eGFRcr SerPlBld CKD-EPI 2020 54 mL/min/1.73m??? Low >=60 [facility] Comment on above: Order Comment: Kritsin canales Type: BLOOD SPECIMENOrdering Facility: [facility] Address: [address] [place] [address] Result Comment: Norma mated Glomerular Filtration Rate (eGFR) is calculated using the 2020 CKD-EPI creatinine equation. This equation utilizes serum creatinine, sex, and age as parameters. The creatinine assay has traceable calibration to isotope dilution-mass spectrometry. Refer to KDIGO guidelines for clinical interpretation. In patients with unstable renal function, e.g. those with acute kidney injury, the eGFR may not accurately reflect actual GFR. Performed By: #### 1 9123-9, 14564-8 ####[facility] [id number] [place] [address] [place] Glucose [Mass/Vol] 82 mg/dL Normal 74-99 [facility] Comment on above: Order Comment: Kristin canales Type: BLOOD SPECIMENOrdering Facility: [facility] Address: [address] [place] [address] Result Comment: The Stateless Diabetes Association (ADA) provides guidance for cutoff values for fasting glucose and random glucose. The ADA defines fasting as no caloric intake for at least 8 hours. Fasting plasma glucose results between 100 to 125 mg/dL indicate increased risk for diabetes (prediabetes).Fasting plasma glucose results greater than or equal to 126 mg/dL meet the criteria for diagnosis of diabetes. In the absence of unequivocal hyperglycemia, results should be confirmed by repeat testing. In a patient with classic symptoms of hyperglycemia or hyperglycemic crisis, random plasma glucose results greater than or equal to 200 mg/dL meet the criteria for diagnosis of diabetes.Reference: Standards of Medical Care in Diabetes 2016, Stateless Diabetes Association. Diabetes Care. 2016.39(Suppl 1). Performed By: #### 1 9123-9, 92830-1 ####[facility] [id number] [place] [address] [place] Potassium [Moles/Vol] 4.0 mmol/L Normal 3.7-5.1 [facility] Comment on above: Order Comment: Speci men Type: BLOOD SPECIMENOrdering Facility: [facility] Address: [address] [place] [address] Performed By: #### 1 9123-9, ####[facility] [id number] [place] [address] [place] Protein [Mass/Vol] 6.8 g/dL Normal 6.3-8.0 [facility] Comment on above: Order Comment: Speci men Type: BLOOD SPECIMENOrdering Facility: [facility] Address: [address] [place] [address] Performed By: #### 1 9123-9, ####[facility] [id number] [place] [address] [place] Sodium [Moles/Vol] 135 mmol/L Low 136-144 [facility] Comment on above: Order Comment: Speci men Type: BLOOD SPECIMENOrdering Facility: [facility] Address: [address] [place] [address] Performed By: #### 1 9123-9, ####[facility] [id number] [place] [address] [place] Urea nitrogen [Mass/Vol] 15 mg/dL Normal 7-21 [facility] Comment on above: Order Comment: Speci men Type: BLOOD SPECIMENOrdering Facility: [facility] Address: [address] [place] [address] Performed By: #### 1 9123-9, 24408-7 ####[facility] VERONICAWNCLIA [id number] [place] [address] [place] Magnesium SerPl-mCncon 10-08 Magnesium [Mass/Vol] 2.2 mg/dL Normal 1.7-2.3 [facility] Comment on above: Order Comment: Speci men Type: BLOOD SPECIMENOrdering Facility: [facility] Address: [address] [place], [place] [address] Performed By: #### 1 9123-9, 15316-5 ####[facility] VERONICAWNCLIA [id number] [place] [address] [place] CNPNon 10-05-2024 CNPN Normal [facility] CNOVon 10-04-2024 CNOV Normal [facility] XR LUMBAR 3V AP/LAT/L5-S1on 10-04-2024 XR LUMBAR 3V AP/LAT/L5-S1 Normal [facility] XR Lumbar spine 3 Viewson IMPRESSION: No acute fracture. Grade 1-2 anterolisthesis of L4 on L5. Still Operator Batch Or Continuous: FELIX Transcribe Date/Time: Oct 04 2024 3:00P Dictated by : JOHANNA VALADEZ MD This examination was interpreted and the report reviewed and electronically signed by: JOHANNA VALADEZ MD on Oct 04 2024 3:02PM [facility] DIVISION OF RADIOLOGY * * *Final Report* * * DATE OF EXAM: Oct 04 2024 1:54PM WOX [id number] - XR LUMBAR 3V AP/LAT/L5-S1 / PROCEDURE REASON: Acute right-sided low back pain without sciatica * * * * Physician Interpretation * * * * EXAMINATION: XR LUMBAR 3V AP/LAT/L5-S1 CLINICAL HISTORY: Acute right-sided low back pain without sciatica Technique: XR LUMBAR 3V AP/LAT/L5-S1 -- NOT APPLICABLE with 3 views on 3 images Comparison: None RESULT: Counting reference: Lumbosacral junction. For the purposes of this report, L4-5 is considered the level of the iliac crest and assume there are 5 lumbar-type vertebrae. Anatomic variant: None. Postoperative changes from posterior fusion of L5-S1 with spinal rods and transpedicular screws. Hardware is intact. Grade 1-2 anterolisthesis of L4 on L5. No acute fracture. Multilevel degenerative disc disease and facet joint degenerative disease. DIVISION OF RADIOLOGY Provider, Tabitha Verdin [facility] - 10/04/2024 * * *Final Report* * * DATE OF EXAM: Oct 04 2024 1:54PM WOX [id number] - XR LUMBAR 3V AP/LAT/L5-S1 / PROCEDURE REASON: Acute right-sided low back pain without sciatica * * * * Physician Interpretation * * * * EXAMINATION: XR LUMBAR 3V AP/LAT/L5-S1 CLINICAL HISTORY: Acute right-sided low back pain without sciatica Technique: XR LUMBAR 3V AP/LAT/L5-S1 -- NOT APPLICABLE with 3 views on 3 images Comparison: None RESULT: Counting reference: Lumbosacral junction. For the purposes of this report, L4-5 is considered the level of the iliac crest and assume there are 5 lumbar-type vertebrae. Anatomic variant: None. Postoperative changes from posterior fusion of L5-S1 with spinal rods and transpedicular screws. Hardware is intact. Grade 1-2 anterolisthesis of L4 on L5. No acute fracture. Multilevel degenerative disc disease and facet joint degenerative disease. IMPRESSION IMPRESSION: No acute fracture. Grade 1-2 anterolisthesis of L4 on L5. Still Operator Batch Or Continuous: [facility] Transcribe Date/Time: Oct 04 2024 3:00P Dictated by : JOHANNA VALADEZ MD This examination was interpreted and the report reviewed and electronically signed by: JOHANNA VALADEZ MD on Oct 04 2024 3:02PM EST [facility] Radiology Study observation (narrative) [facility] XR Lumbar spine 3 ViewsOrder ed By: [facility] Provider on 10-04-2024 [facility] CBC W Auto Differential pane l (Bld)on 09-30-2024 Basophils (Bld) [#/Vol] 0.14 10*3/uL High <0.11 [facility] Comment on above: Order Comment: Speci men Type: BLOOD SPECIMENOrdering Facility: [facility] Address: [address] [place] [address] Performed By: #### 5 7021-8 ####[facility] LABCLIA [id number] [address], [facility] [place] Basophils/100 WBC (Bld) 1.4 % Normal [facility] Comment on above: Order Comment: Speci men Type: BLOOD SPECIMENOrdering Facility: [facility] Address: [address] [place] [address] Performed By: #### 5 7021-8 ####[facility] LABCLIA [id number] [address], [place] [address] [place] Differential cell count method Nom (Bld) Auto Normal [facility] Comment on above: Order Comment: Speci men Type: BLOOD SPECIMENOrdering Facility: [facility] Address: [address] [place] [address] Performed By: #### 5 7021-8 ####[facility] LABCLIA [id number] [address], [facility] [place] Eosinophils (Bld) [#/Vol] 0.10 10*3/uL Normal <0.46 [facility] Comment on above: Order Comment: Speci men Type: BLOOD SPECIMENOrdering Facility: [facility] Address: [address] [place] [address] Performed By: #### 5 7021-8 ####[facility] LABCLIA [id number] [address], [facility] [place] Eosinophils/100 WBC (Bld) 1.0 % Normal [facility] Comment on above: Order Comment: Speci men Type: BLOOD SPECIMENOrdering Facility: [facility] Address: [address] [place] [address] Performed By: #### 5 7021-8 ####[facility] LABCLIA [id number] [address], [facility] [place] Erythrocyte distribution width (RBC) [Ratio] 14.0 % Normal 11.5-15.0 [facility] Comment on above: Order Comment: Speci men Type: BLOOD SPECIMENOrdering Facility: [facility] Address: [address] [place] [address] Performed By: #### 5 7021-8 ####[facility] LABCLIA [id number] [place] [address] [place] Hematocrit (Bld) [Volume fraction] 36.0 % Normal 36.0-46.0 [facility] Comment on above: Order Comment: Speci men Type: BLOOD SPECIMENOrdering Facility: [facility] Address: [address] [place] [address] Performed By: #### 5 7021-8 ####[facility] LABIA [id number] [place] [address] [place] Hemoglobin (Bld) [Mass/Vol] 11.7 g/dL Normal 11.5-15.5 [facility] Comment on above: Order Comment: Speci men Type: BLOOD SPECIMENOrdering Facility: [facility] Address: [address] [place] [address] Performed By: #### 5 7021-8 ####[facility] LABIA [id number] [place] [address] [place] Immature granulocytes (Bld) [#/Vol] 0.04 10*3/uL Normal <0.10 [facility] Comment on above: Order Comment: Speci men Type: BLOOD SPECIMENOrdering Facility: [facility] Address: [address] [place] [address] Performed By: #### 5 7021-8 ####[facility] LABIA [id number] [place] [address] [place] Immature granulocytes/100 WBC (Bld) 0.4 % Normal [facility] Comment on above: Order Comment: Speci men Type: BLOOD SPECIMENOrdering Facility: [facility] Address: [address] [place] [address] Performed By: #### 5 7021-8 ####[facility] LABCLIA [id number] [place] [address] [place] Lymphocytes (Bld) [#/Vol] 1.80 10*3/uL Normal 1.00-4.00 [facility] Comment on above: Order Comment: Speci men Type: BLOOD SPECIMENOrdering Facility: [facility] Address: [address] [place] [address] Performed By: #### 5 7021-8 ####[facility] LABCLIA [id number] [place] [address] [place] Lymphocytes/100 WBC (Bld) 18.4 % Normal [facility] Comment on above: Order Comment: Speci men Type: BLOOD SPECIMENOrdering Facility: [facility] Address: [address] [place] [address] Performed By: #### 5 7021-8 ####[facility] LABIA [id number] [place] [address] [place] MCH (RBC) [Entitic mass] 30.9 pg Normal 26.0-34.0 [facility] Comment on above: Order Comment: Speci men Type: BLOOD SPECIMENOrdering Facility: [facility] Address: [address] [place] [address] Performed By: #### 5 7021-8 ####[facility] LABCLIA [id number] [place] [id number] [place] MCHC (RBC) [Mass/Vol] 32.5 g/dL Normal 30.5-36.0 [facility] Comment on above: Order Comment: Speci men Type: BLOOD SPECIMENOrdering Facility: [facility] Address: [address] [place] [address] Performed By: #### 5 7021-8 ####[facility] LABCLIA [id number] [address] [place] [address] [place] MCV (RBC) [Entitic vol] 95.0 fL Normal 80.0-100.0 [facility] Comment on above: Order Comment: Speci men Type: BLOOD SPECIMENOrdering Facility: [facility] Address: [address] [place] [address] Performed By: #### 5 7021-8 ####[facility] LABCLIA [id number] [address], [place] [address] [place] Monocytes (Bld) [#/Vol] 1.13 10*3/uL High <0.87 [facility] Comment on above: Order Comment: Speci men Type: BLOOD SPECIMENOrdering Facility: [facility] Address: [address] [place] [address] Performed By: #### 5 7021-8 ####[facility] LABCLIA [id number] [address], [place] [address] [place] Monocytes/100 WBC (Bld) 11.6 % Normal [facility] Comment on above: Order Comment: Speci men Type: BLOOD SPECIMENOrdering Facility: [facility] Address: [address] [place] [address] Performed By: #### 5 7021-8 ####[facility] LABCLIA [id number] [address], [place] [address] [place] Neutrophils (Bld) [#/Vol] 6.55 10*3/uL Normal 1.45-7.50 [facility] Comment on above: Order Comment: Speci men Type: BLOOD SPECIMENOrdering Facility: [facility] Address: [address] [place] [address] Performed By: #### 5 7021-8 ####[facility] LABCLIA [id number] [address], [facility] [place] Neutrophils/100 WBC (Bld) 67.2 % Normal [facility] Comment on above: Order Comment: Speci men Type: BLOOD SPECIMENOrdering Facility: [facility] Address: [address] [place] [address] Performed By: #### 5 7021-8 ####[facility] LABCLIA [id number] [place] [address] [place] Nucleated RBC (Bld) [#/Vol] 10*3/uL Normal <0.01 [facility] Comment on above: Order Comment: Speci men Type: BLOOD SPECIMENOrdering Facility: [facility] Address: [address] [place] [address] Performed By: #### 5 7021-8 ####[facility] LABCLIA [id number] [place] [address] [place] Nucleated RBC/100 WBC (Bld) [Ratio] 0.0 /100 WBC Normal [facility] Comment on above: Order Comment: Speci men Type: BLOOD SPECIMENOrdering Facility: [facility] Address: [address] [place] [address] Performed By: #### 5 7021-8 ####[facility] LABCLIA [id number] [place] [address] [place] Platelet mean volume (Bld) [Entitic vol] 10.3 fL Normal 9.0-12.7 [facility] Comment on above: Order Comment: Speci men Type: BLOOD SPECIMENOrdering Facility: [facility] Address: [address] [place] [address] Performed By: #### 5 7021-8 ####[facility] LABCLIA [id number] [place] [address] [place] Platelets (Bld) [#/Vol] 387 10*3/uL Normal 150-400 [facility] Comment on above: Order Comment: Speci men Type: BLOOD SPECIMENOrdering Facility: [facility] Address: [address] [place] [address] Performed By: #### 5 7021-8 ####[facility] LABCLIA [id number] [address] [address] [place] RBC (Bld) [#/Vol] 3.79 10*6/uL Low 3.90-5.20 [facility] Comment on above: Order Comment: Speci men Type: BLOOD SPECIMENOrdering Facility: [facility] Address: [address] [place] [address] Performed By: #### 5 7021-8 ####[facility]PITALIA [id number] [address] [address] [place] WBC (Bld) [#/Vol] 9.76 10*3/uL Normal 3.70-11.00 [facility] Comment on above: Order Comment: Speci men Type: BLOOD SPECIMENOrdering Facility: [facility] Address: [address] [place] [address] Performed By: #### 5 7021-8 ####[facility] HOSPITALIA [id number] [place] [address] [place] CNOVon 09-30-2024 CNOV Normal [facility] Comprehensive metabolic 2000 panelon 09-30-2024 Albumin [Mass/Vol] 4.2 g/dL Normal 3.9-4.9 [facility] Comment on above: Order Comment: Speci men Type: BLOOD SPECIMENOrdering Facility: [facility] Address: [address] [place] [address] Performed By: #### 2 4323-8 ####[facility] LABIA [id number] [place] [address] [place] ALP [Catalytic activity/Vol] 93 U/L Normal 34-123 [facility] Comment on above: Order Comment: Speci men Type: BLOOD SPECIMENOrdering Facility: [facility] Address: [address] [place] [address] Performed By: #### 2 4323-8 ####[facility] LABIA [id number] [address] [address] [place] ALT [Catalytic activity/Vol] 13 U/L Normal 7-38 [facility] Comment on above: Order Comment: Speci men Type: BLOOD SPECIMENOrdering Facility: [facility] Address: [address] [place] [address] Performed By: #### 2 4323-8 ####[facility] LABCLIA [id number] [address] [address] [place] Anion gap [Moles/Vol] 15 mmol/L Normal 8-15 [facility] Comment on above: Order Comment: Speci men Type: BLOOD SPECIMENOrdering Facility: [facility] Address: [address] [place] [address] Performed By: #### 2 4323-8 ####[facility] LABCLIA [id number] [place] [address] [place] AST [Catalytic activity/Vol] 22 U/L Normal 13-35 [facility] Comment on above: Order Comment: Speci men Type: BLOOD SPECIMENOrdering Facility: [facility] Address: [address] [place], [place] [address] Performed By: #### 2 4323-8 ####[facility] LABCLIA [id number] [place] [address] [place] Bilirubin [Mass/Vol] 0.4 mg/dL Normal 0.2-1.3 [facility] Comment on above: Order Comment: Speci men Type: BLOOD SPECIMENOrdering Facility: [facility] Address: [address] [place] [place] [id number] Performed By: #### 2 4323-8 ####[facility] LABCLIA [id number] [place] [address] [place] Calcium [Mass/Vol] 9.3 mg/dL Normal 8.5-10.2 [facility] Comment on above: Order Comment: Speci men Type: BLOOD SPECIMENOrdering Facility: [facility] Address: [address] [place] [address] Performed By: #### 2 4323-8 ####[facility] LABCLIA [id number] [place] [address] [place] Chloride [Moles/Vol] 94 mmol/L Low 98-107 [facility] Comment on above: Order Comment: Speci men Type: BLOOD SPECIMENOrdering Facility: [facility] Address: [address] [place] [address] Performed By: #### 2 4323-8 ####[facility] LABCLIA [id number] [place] [address] [place] CO2 [Moles/Vol] 23 mmol/L Normal 22-30 [facility] Comment on above: Order Comment: Speci men Type: BLOOD SPECIMENOrdering Facility: [facility] Address: [address] [place] [address] Performed By: #### 2 4323-8 ####[facility] LABCLIA [id number] [place] [address] [place] Creatinine [Mass/Vol] 1.21 mg/dL High 0.58-0.96 [facility] Comment on above: Order Comment: Speci men Type: BLOOD SPECIMENOrdering Facility: [facility] Address: [address] [place] [address] Performed By: #### 2 4323-8 ####[facility] LABCLIA [id number] [place] [address] [place] eGFRcr SerPlBld CKD-EPI 2020 46 mL/min/1.73m??? Low >=60 [facility] Comment on above: Order Comment: Speci men Type: BLOOD SPECIMENOrdering Facility: [facility] Address: [address] [place] [address] Result Comment: Norma mated Glomerular Filtration Rate (eGFR) is calculated using the 2020 CKD-EPI creatinine equation. This equation utilizes serum creatinine, sex, and age as parameters. The creatinine assay has traceable calibration to isotope dilution-mass spectrometry. Refer to KDIGO guidelines for clinical interpretation. In patients with unstable renal function, e.g. those with acute kidney injury, the eGFR may not accurately reflect actual GFR. Performed By: #### 2 4323-8 ####[facility] LABCLIA [id number] [facility] [address] [place] [address] [place] Glucose [Mass/Vol] 63 mg/dL Low 74-99 [facility] Comment on above: Order Comment: Speci men Type: BLOOD SPECIMENOrdering Facility: [facility] Address: [address] [place] [address] Result Comment: The Stateless Diabetes Association (ADA) provides guidance for cutoff values for fasting glucose and random glucose. The ADA defines fasting as no caloric intake for at least 8 hours. Fasting plasma glucose results between 100 to 125 mg/dL indicate increased risk for diabetes (prediabetes).Fasting plasma glucose results greater than or equal to 126 mg/dL meet the criteria for diagnosis of diabetes. In the absence of unequivocal hyperglycemia, results should be confirmed by repeat testing. In a patient with classic symptoms of hyperglycemia or hyperglycemic crisis, random plasma glucose results greater than or equal to 200 mg/dL meet the criteria for diagnosis of diabetes.Reference: Standards of Medical Care in Diabetes 2016, Stateless Diabetes Association. Diabetes Care. 2016.39(Suppl 1). Performed By: #### 2 4323-8 ####[facility] LABCLIA [id number] [facility] [address] [address] [place] Potassium [Moles/Vol] 5.5 mmol/L High 3.7-5.1 [facility] Comment on above: Order Comment: Speci men Type: BLOOD SPECIMENOrdering Facility: [facility] Address: [address] [place] [id number] Performed By: #### 2 4323-8 ####[facility] LABCLIA [id number] [facility] [id number] [address] [place] Protein [Mass/Vol] 7.2 g/dL Normal 6.3-8.0 [facility] Comment on above: Order Comment: Speci men Type: BLOOD SPECIMENOrdering Facility: [facility] Address: [address] [place] [address] Performed By: #### 2 4323-8 ####[facility] LABIA [id number] [place] [address] [place] Sodium [Moles/Vol] 132 mmol/L Low 136-144 [facility] Comment on above: Order Comment: Speci men Type: BLOOD SPECIMENOrdering Facility: [facility] Address: [address] [place] [address] Performed By: #### 2 4323-8 ####[facility] LABIA [id number] [place] [address] [place] Urea nitrogen [Mass/Vol] 15 mg/dL Normal 7-21 [facility] Comment on above: Order Comment: Speci men Type: BLOOD SPECIMENOrdering Facility: [facility] Address: [address] [place] [address] Performed By: #### 2 4323-8 ####[facility] LABIA [id number] [place] [id number] [place] XR CHEST 2V FRONTAL/LATon XR CHEST 2V FRONTAL/LAT Normal [facility] CBC W Auto Differential pane l (Bld)on 09-03-2024 Basophils (Bld) [#/Vol] 0.09 10*3/uL Normal <0.11 [facility] Comment on above: Order Comment: Speci men Type: BLOOD SPECIMENOrdering Facility: [facility] Address: [address] [place], [place] [address] Performed By: #### 5 7021-8 ####[facility] CRISTOFER PORTER REGIONAL HOSPITALERVIN [id number] [place] [address] [place] Basophils/100 WBC (Bld) 1.4 % Normal [facility] Comment on above: Order Comment: Speci men Type: BLOOD SPECIMENOrdering Facility: [facility] Address: [address] [place] [address] Performed By: #### 5 7021-8 ####[facility] VERONICACHEIKHA [id number] [place] [address] [place] Differential cell count method Nom (Bld) Auto Normal [facility] Comment on above: Order Comment: Speci men Type: BLOOD SPECIMENOrdering Facility: [facility] Address: [address] [place] [address] Performed By: #### 5 7021-8 ####[facility] NAPLESSHAINAСЕРГЕЙA [id number] [place] [address] [place] Eosinophils (Bld) [#/Vol] 0.06 10*3/uL Normal <0.46 [facility] Comment on above: Order Comment: Speci men Type: BLOOD SPECIMENOrdering Facility: [facility] Address: [address] [place] [address] Performed By: #### 5 7021-8 ####[facility] [id number] [place] [address] [place] Eosinophils/100 WBC (Bld) 1.0 % Normal [facility] Comment on above: Order Comment: Speci men Type: BLOOD SPECIMENOrdering Facility: [facility] Address: [address] [place] [address] Performed By: #### 5 7021-8 ####[facility] NAPLESSHAINAСЕРГЕЙA [id number] [place] [address] [place] Erythrocyte distribution width (RBC) [Ratio] 13.5 % Normal 11.5-15.0 [facility] Comment on above: Order Comment: Speci men Type: BLOOD SPECIMENOrdering Facility: [facility] Address: [address] [place] [address] Performed By: #### 5 7021-8 ####[facility] NAPLESNCLI [id number] [place] [address] [place] Hematocrit (Bld) [Volume fraction] 35.8 % Low 36.0-46.0 [facility] Comment on above: Order Comment: Speci men Type: BLOOD SPECIMENOrdering Facility: [facility] Address: [address] [place] [address] Performed By: #### 5 7021-8 ####[facility] NAPLESROSIE [id number] [place] [address] [place] Hemoglobin (Bld) [Mass/Vol] 12.4 g/dL Normal 11.5-15.5 [facility] Comment on above: Order Comment: Speci men Type: BLOOD SPECIMENOrdering Facility: [facility] Address: [address] [place] [address] Performed By: #### 5 7021-8 ####[facility] NAPLESROSIE [id number] [place] [address] [place] Immature granulocytes (Bld) [#/Vol] 0.04 10*3/uL Normal <0.10 [facility] Comment on above: Order Comment: Speci men Type: BLOOD SPECIMENOrdering Facility: [facility] Address: [address] [place] [address] Performed By: #### 5 7021-8 ####[facility] NAPLESNCСЕРГЕЙA [id number] [place] [address] [place] Immature granulocytes/100 WBC (Bld) 0.6 % Normal [facility] Comment on above: Order Comment: Speci men Type: BLOOD SPECIMENOrdering Facility: [facility] Address: [address] [place] [address] Performed By: #### 5 7021-8 ####[facility] NAPLESNCLIA [id number] [place] [address] [place] Lymphocytes (Bld) [#/Vol] 1.63 10*3/uL Normal 1.00-4.00 [facility] Comment on above: Order Comment: Speci men Type: BLOOD SPECIMENOrdering Facility: [facility] Address: [address] [place] [address] Performed By: #### 5 7021-8 ####[facility] VERONICASoniaNCERVIN [id number] [place] [address] [place] Lymphocytes/100 WBC (Bld) 26.2 % Normal [facility] Comment on above: Order Comment: Speci men Type: BLOOD SPECIMENOrdering Facility: [facility] Address: [address] [place] [address] Performed By: #### 5 7021-8 ####[facility]LESNCUNIVERS[facility] [id number] [place] [address] [place] MCH (RBC) [Entitic mass] 31.5 pg Normal 26.0-34.0 [facility] Comment on above: Order Comment: Speci men Type: BLOOD SPECIMENOrdering Facility: [facility] Address: [address] [place] [address] Performed By: #### 5 7021-8 ####[facility] [id number] [place] [address] [place] MCHC (RBC) [Mass/Vol] 34.6 g/dL Normal 30.5-36.0 [facility] Comment on above: Order Comment: Speci men Type: BLOOD SPECIMENOrdering Facility: [facility] Address: [address] [place] [address] Performed By: #### 5 7021-8 ####[facility] NAPLESNCLIA [id number] [place] [address] [place] MCV (RBC) [Entitic vol] 90.9 fL Normal 80.0-100.0 [facility] Comment on above: Order Comment: Speci men Type: BLOOD SPECIMENOrdering Facility: [facility] Address: [address] [place] [address] Performed By: #### 5 7021-8 ####[facility] MILLWNCLIA [id number] [place] [address] [place] Monocytes (Bld) [#/Vol] 0.90 10*3/uL High <0.87 [facility] Comment on above: Order Comment: Speci men Type: BLOOD SPECIMENOrdering Facility: [facility] Address: [address] [place] [address] Performed By: #### 5 7021-8 ####[facility] CENTERWNCLIA [id number] [place] [address] [place] Monocytes/100 WBC (Bld) 14.5 % Normal [facility] Comment on above: Order Comment: Speci men Type: BLOOD SPECIMENOrdering Facility: [facility] Address: [address] [place] [address] Performed By: #### 5 7021-8 ####[facility] HOSPITALLIA [id number] [place] [address] [place] Neutrophils (Bld) [#/Vol] 3.49 10*3/uL Normal 1.45-7.50 [facility] Comment on above: Order Comment: Speci men Type: BLOOD SPECIMENOrdering Facility: [facility] Address: [address] [place] [address] Performed By: #### 5 7021-8 ####[facility] MILLWNCLIA [id number] [place] [address] [place] Neutrophils/100 WBC (Bld) 56.3 % Normal [facility] Comment on above: Order Comment: Speci men Type: BLOOD SPECIMENOrdering Facility: [facility] Address: [address] [place] [address] Performed By: #### 5 7021-8 ####[facility] NAPLESNCLIA [id number] [place] [id number] [place] Nucleated RBC (Bld) [#/Vol] 10*3/uL Normal <0.01 [facility] Comment on above: Order Comment: Speci men Type: BLOOD SPECIMENOrdering Facility: [facility] Address: [address] [place] [address] Performed By: #### 5 7021-8 ####[facility]LESNCUNIVERSITY [facility] [id number] [place] [address] [place] Nucleated RBC/100 WBC (Bld) [Ratio] 0.0 /100 WBC Normal [facility] Comment on above: Order Comment: Speci men Type: BLOOD SPECIMENOrdering Facility: [facility] Address: [address] [place] [address] Performed By: #### 5 7021-8 ####[facility]LESNCUNIVERS[facility] [id number] [place] [address] [place] Platelet mean volume (Bld) [Entitic vol] 9.0 fL Normal 9.0-12.7 [facility] Comment on above: Order Comment: Speci men Type: BLOOD SPECIMENOrdering Facility: [facility] Address: [address] [place] [address] Performed By: #### 5 7021-8 ####[facility] NAPLESNCLI [id number] [place] [address] [place] Platelets (Bld) [#/Vol] 343 10*3/uL Normal 150-400 [facility] Comment on above: Order Comment: Speci men Type: BLOOD SPECIMENOrdering Facility: [facility] Address: [address] [place] [address] Performed By: #### 5 7021-8 ####[facility] NAPLESNCLIA [id number] [place] [address] [place] RBC (Bld) [#/Vol] 3.94 10*6/uL Normal 3.90-5.20 [facility] Comment on above: Order Comment: Speci men Type: BLOOD SPECIMENOrdering Facility: [facility] Address: [address] [place] [address] Performed By: #### 5 7021-8 ####[facility]ENTERWNCLIA [id number] [place] [address] [place] WBC (Bld) [#/Vol] 6.21 10*3/uL Normal 3.70-11.00 [facility] Comment on above: Order Comment: Speci men Type: BLOOD SPECIMENOrdering Facility: [facility] Address: [address] [place] [address] Performed By: #### 5 7021-8 ####[facility]LESNCLIA [id number] [place] [address] [place] Comprehensive metabolic 2000 panelon 09-03-2024 Albumin [Mass/Vol] 4.3 g/dL Normal 3.9-4.9 [facility] Comment on above: Order Comment: Speci men Type: BLOOD SPECIMENOrdering Facility: [facility] Address: [address] [place] [address] Performed By: #### 1 9123-9, 53262-9 ####[facility] NAPLESNCLIA [id number] [place] [address] [place] ALP [Catalytic activity/Vol] 98 U/L Normal 34-123 [facility] Comment on above: Order Comment: Speci men Type: BLOOD SPECIMENOrdering Facility: [facility] Address: [address] [place] [address] Performed By: #### 1 9123-9, 17056-1 ####[facility] CENTERWNCLIA [id number] [place] [address] [place] ALT [Catalytic activity/Vol] 16 U/L Normal 7-38 [facility] Comment on above: Order Comment: Speci men Type: BLOOD SPECIMENOrdering Facility: [facility] Address: [address] [place] [address] Performed By: #### 1 9123-9, 16390-5 ####[facility] KHADRASHAINAERVIN [id number] [place] [address] [place] Anion gap [Moles/Vol] 14 mmol/L Normal 8-15 [facility] Comment on above: Order Comment: Speci men Type: BLOOD SPECIMENOrdering Facility: [facility] Address: [address] [place] [address] Performed By: #### 1 9123-9, 73432-8 ####[facility] VERONICAJANNIEA [id number] [place] [address] [place] AST [Catalytic activity/Vol] 17 U/L Normal 13-35 [facility] Comment on above: Order Comment: Speci men Type: BLOOD SPECIMENOrdering Facility: [facility] Address: [address] [place] [address] Performed By: #### 1 9123-9, 80983-7 ####[facility] VERONICAHAGER CITYERICA [id number] [place] [address] [place] Bilirubin [Mass/Vol] 0.4 mg/dL Normal 0.2-1.3 [facility] Comment on above: Order Comment: Speci men Type: BLOOD SPECIMENOrdering Facility: [facility] Address: [address] [place] [address] Performed By: #### 1 9123-9, 81084-7 ####[facility] NAPLESSHAINALIA [id number] [place] [address] [place] Calcium [Mass/Vol] 9.5 mg/dL Normal 8.5-10.2 [facility] Comment on above: Order Comment: Speci men Type: BLOOD SPECIMENOrdering Facility: [facility] Address: [address] [place] [address] Performed By: #### 1 9123-9, 79277-4 ####[facility] MILLWNCLIA [id number] [place] [address] [place] Chloride [Moles/Vol] 91 mmol/L Low 98-107 [facility] Comment on above: Order Comment: Speci men Type: BLOOD SPECIMENOrdering Facility: [facility] Address: [address] [place] [address] Performed By: #### 1 9123-9, 46951-3 ####[facility] HOSPITALLIA [id number] [place] [address] [place] CO2 [Moles/Vol] 23 mmol/L Normal 22-30 [facility] Comment on above: Order Comment: Speci men Type: BLOOD SPECIMENOrdering Facility: [facility] Address: [address] [place] [address] Performed By: #### 1 9123-9, 44079-8 ####[facility] HOSPITALLIA [id number] [place] [address] [place] Creatinine [Mass/Vol] 1.16 mg/dL High 0.58-0.96 [facility] Comment on above: Order Comment: Speci men Type: BLOOD SPECIMENOrdering Facility: [facility] Address: [address] [place] [address] Performed By: #### 1 9123-9, 39182-2 ####[facility] HOSPITALLIA [id number] [place] [address] [place] Creatinine and Glomerular filtration rate.predicted panel (S/P/Bld) 48 mL/min/1.73m??? Low >=60 [facility] Comment on above: Order Comment: Speci men Type: BLOOD SPECIMENOrdering Facility: [facility] Address: [address] [place] [address] Result Comment: Norma mated Glomerular Filtration Rate (eGFR) is calculated using the 2020 CKD-EPI creatinine equation. This equation utilizes serum creatinine, sex, and age as parameters. The creatinine assay has traceable calibration to isotope dilution-mass spectrometry. Refer to KDIGO guidelines for clinical interpretation. In patients with unstable renal function, e.g. those with acute kidney injury, the eGFR may not accurately reflect actual GFR. Performed By: #### 1 9123-9, 81751-2 ####[facility] VERONICAJEFF [id number] [place] [address] [place] Glucose [Mass/Vol] 79 mg/dL Normal 74-99 [facility] Comment on above: Order Comment: Kristin canales Type: BLOOD SPECIMENOrdering Facility: [facility] Address: [address] [place] [address] Result Comment: The Stateless Diabetes Association (ADA) provides guidance for cutoff values for fasting glucose and random glucose. The ADA defines fasting as no caloric intake for at least 8 hours. Fasting plasma glucose results between 100 to 125 mg/dL indicate increased risk for diabetes (prediabetes).Fasting plasma glucose results greater than or equal to 126 mg/dL meet the criteria for diagnosis of diabetes. In the absence of unequivocal hyperglycemia, results should be confirmed by repeat testing. In a patient with classic symptoms of hyperglycemia or hyperglycemic crisis, random plasma glucose results greater than or equal to 200 mg/dL meet the criteria for diagnosis of diabetes.Reference: Standards of Medical Care in Diabetes 2016, Stateless Diabetes Association. Diabetes Care. 2016.39(Suppl 1). Performed By: #### 1 9123-9, 60639-7 ####[facility] CENTERWSHAINALIA [id number] [place] [address] [place] Potassium [Moles/Vol] 4.0 mmol/L Normal 3.7-5.1 [facility] Comment on above: Order Comment: Kristin canales Type: BLOOD SPECIMENOrdering Facility: [facility] Address: [address] [place] [address] Performed By: #### 1 9123-9, 97929-9 ####[facility] NAPLESERICA [id number] [place] [address] [place] Protein [Mass/Vol] 7.0 g/dL Normal 6.3-8.0 [facility] Comment on above: Order Comment: Speci men Type: BLOOD SPECIMENOrdering Facility: [facility] Address: [address] [place] [address] Performed By: #### 1 9123-9, 90704-6 ####[facility] HOSPITALСЕРГЕЙ [id number] [place] [address] [place] Sodium [Moles/Vol] 128 mmol/L Low 136-144 [facility] Comment on above: Order Comment: Speci men Type: BLOOD SPECIMENOrdering Facility: [facility] Address: [address] [place] [address] Performed By: #### 1 9123-9, 65808-5 ####[facility] HOSPITALERVIN [id number] [place] [address] [place] Urea nitrogen [Mass/Vol] 17 mg/dL Normal 7-21 [facility] Comment on above: Order Comment: Speci men Type: BLOOD SPECIMENOrdering Facility: [facility] Address: [address] [place] [address] Performed By: #### 1 9123-9, 38052-3 ####[facility] HOSPITALСЕРГЕЙA [id number] [place] [address] [place] LIPID PANEL, NONFASTINGon Cholesterol [Mass/Vol] 185 mg/dL Normal <200 [facility] Comment on above: Order Comment: Speci men Type: BLOOD SPECIMENOrdering Facility: [facility] Address: [address] [place] [address] Result Comment: <200 mg/dL, Desirable 200-239 mg/dL, Borderline high>239 mg/dL, High Performed By: #### L IPNF, 3016-3, 3024-7 ####[facility] LABCLIA [id number] [address] HDL CHOLESTEROL, NF 53 mg/dL Normal >39 [facility] Comment on above: Order Comment: Mirandatana canales Type: BLOOD SPECIMENOrdering Facility: [facility] Address: [address] [place] [address] Result Comment: 40-5 9 mg/dL, Acceptable>59 mg/dL, High: Negative risk factor for coronary heart disease<40 mg/dL, Low: Positive risk factor for coronary heart disease Performed By: #### L IP, 3016-3, 302-7 ####[facility] LABCLIA [id number] [address] LDL CHOLESTEROL CALCULATED, NF 118 mg/dL High <100 [facility] Comment on above: Order Comment: Kristin ally Type: BLOOD SPECIMENOrdering Facility: [facility] Address: [address] [place] [address] Result Comment: <100 mg/dL, Optimal 100-129 mg/dL, Near optimal/above optimal 130-159 mg/dL, Borderline high 160-189 mg/dL, High>189 mg/dL, Very highSecondary prevention optimal LDL Cholesterol levels are recommended to be <70 mg/dLLDL cholesterol is calculated using the Degroot-NIH equation. Performed By: #### L IP, 3016-3, 3023-7 ####[facility] LABIA [id number] [address] OF [facility] LDL/HDL RATIO, NF 2.23 mg/dL Normal <2.54 [facility] Comment on above: Order Comment: Kristin canales Type: BLOOD SPECIMENOrdering Facility: [facility] Address: [address] [place] [address] Result Comment: Valentina gamez:1. National Cholesterol Education Program ATP III Guideline At-A-Glance Quick Desk Reference: National Heart, Lung, and Blood [place]. National Institutes of Health. 2001: NIH Publication No. 01-3305.2. An International Atherosclerosis Society position paper: global recommendations for the management of dyslipidemia: executive summary, Atherosclerosis. 2014: 232(2):410-413. Performed By: #### L IPNF, 6-3, 3023-7 ####[facility] LABCLIA [id number] [place] [address] [place] NON HDL CHOL, NF 132 mg/dL High <130 [facility] Comment on above: Order Comment: Speci men Type: BLOOD SPECIMENOrdering Facility: [facility] Address: [address] [place] [address] Result Comment: <130 mg/dL, Optimal 130-159 mg/dL, Near optimal/above optimal 160-189 mg/dL, Borderline high 190-219 mg/dL, High>219 mg/dL, Very highSecondary prevention optimal non HDL Cholesterol levels are recommended to be <100 mg/dL Performed By: #### L IPVIDHYA, 3015-3, 7 ####[facility] LABCLIA [id number] [place] [address] [place] T CHOL/HDL RATIO NF 3.49 mg/dL Normal <5.10 [facility] Comment on above: Order Comment: Speci men Type: BLOOD SPECIMENOrdering Facility: [facility] Address: [address] [place] [address] Performed By: #### L IPNF, 3015-3, 7 ####[facility] LABCLIA [id number] [place] [address] [place] TRIGLYCERIDES, NF 74 mg/dL Normal <150 [facility] Comment on above: Order Comment: Speci men Type: BLOOD SPECIMENOrdering Facility: [facility] Address: [address] [place] [address] Result Comment: <150 mg/dL, Normal 150-199 mg/dL, Borderline high 200-499 mg/dL, High>499 mg/dL, Very high Performed By: #### L IPNF, 6-3, 7 ####[facility] LABCLIA [id number] [address] [address] [place] VLDL CHOLESTEROL, NF 13 mg/dL Normal <30 [facility] Comment on above: Order Comment: Speci men Type: BLOOD SPECIMENOrdering Facility: [facility] Address: [address] [place] [address] Performed By: #### L IPNF, 3015-3, 7 ####[facility] LABCLIA [id number] [place] [address] [place] Magnesium SerPl-mCncon 09-03 Magnesium [Mass/Vol] 2.2 mg/dL Normal 1.7-2.3 [facility] Comment on above: Order Comment: Speci men Type: BLOOD SPECIMENOrdering Facility: [facility] Address: [address] [place] [address] Performed By: #### 1 9123-9, 03289-1 ####[facility] [id number] [place] [address] [place] T4 Free SerPl-mCncon 025 Free T4 [Mass/Vol] 2.3 ng/dL High 0.9-1.7 [facility] Comment on above: Order Comment: Speci men Type: BLOOD SPECIMENOrdering Facility: [facility] Address: [address] [place] [address] Performed By: #### L IPNF, 3015-3, 7 ####[facility] LABCLIA [id number] [place] [address] [place] TSH SerPl-aCncon 09-03-2024 TSH Qn 3.110 m[IU]/L Normal 0.270-4.200 [facility] Comment on above: Order Comment: Speci men Type: BLOOD SPECIMENOrdering Facility: [facility] Address: [address] [place] [address] Performed By: #### L IPNF, 3015-3, 3023-7 ####[facility] LABCLIA [id number] [place] [address] [place] Bacteria Ur Culton Bacteria identified Cx Nom (U) ORGANISM ID: 1 10,000 -<50,000 CFU/ml Normal urogenital shell Normal [facility] Comment on above: Performed By: #### 6 30-4 ####[facility] LABCLIA [id number] [place] [address] [place] CNOVon 08-25-2024 CNOV Normal [facility] UA DIP, URINE (POC)on 2024 BILIRUBIN UA (POCT) Negative Negative [facility] CLARITY UA (POCT) Clear [facility] COLOR UA (POCT) Yellow [facility] GLUCOSE UA (POCT) Negative Negative mg/dL [facility] Hemoglobin Ql (U) Small Abnormal Negative [facility] Interpretation and review of laboratory results Abnormal [facility] KETONE UA (POCT) Negative Negative mg/dL [facility] LEUKOCYTES UA (POCT) Large Abnormal Negative [facility] NITRITE UA (POCT) Negative Negative [facility] PH UA (POCT) 7 4.5 - 8.0 [facility] Protein Ql (U) Negative Negative mg/dL [facility] SPECIFIC GRAVITY UA (POCT) 1.01 1.005 - 1.030 [facility] UROBILINOGEN UA (POCT) 0.2 Normal E.U./dL [facility] Location:[address] POINT OF CARE [facility] CBC W Auto Differential pane l (Bld)on 08-06-2024 Basophils (Bld) [#/Vol] 0.14 10*3/uL High <0.11 [facility] Comment on above: Order Comment: Speci men Type: BLOOD SPECIMENOrdering Facility: [facility] Address: [address] [place] [address] Performed By: #### 5 7021-8 ####[facility] [id number] [place] [address] [place] Basophils/100 WBC (Bld) 1.8 % Normal [facility] Comment on above: Order Comment: Speci men Type: BLOOD SPECIMENOrdering Facility: [facility] Address: [address] [place] [address] Performed By: #### 5 7021-8 ####[facility] NAPLESNCUNIVERSITY [facility] [id number] [place] [address] [place] Differential cell count method Nom (Bld) Auto Normal [facility] Comment on above: Order Comment: Speci men Type: BLOOD SPECIMENOrdering Facility: [facility] Address: [address] [place] [address] Performed By: #### 5 7021-8 ####[facility] [id number] [place] [address] [place] Eosinophils (Bld) [#/Vol] 0.08 10*3/uL Normal <0.46 [facility] Comment on above: Order Comment: Speci men Type: BLOOD SPECIMENOrdering Facility: [facility] Address: [address] [place] [address] Performed By: #### 5 7021-8 ####[facility] [id number] [place] [address] [place] Eosinophils/100 WBC (Bld) 1.0 % Normal [facility] Comment on above: Order Comment: Speci men Type: BLOOD SPECIMENOrdering Facility: [facility] Address: [address] [place] [address] Performed By: #### 5 7021-8 ####[facility] [id number] [place] [address] [place] Erythrocyte distribution width (RBC) [Ratio] 14.4 % Normal 11.5-15.0 [facility] Comment on above: Order Comment: Speci men Type: BLOOD SPECIMENOrdering Facility: [facility] Address: [address] [place] [address] Performed By: #### 5 7021-8 ####[facility] LIBRADOLIA [id number] [place] [address] [place] Hematocrit (Bld) [Volume fraction] 36.4 % Normal 36.0-46.0 [facility] Comment on above: Order Comment: Speci men Type: BLOOD SPECIMENOrdering Facility: [facility] Address: [address] [place] [address] Performed By: #### 5 7021-8 ####[facility] VERONICAHAGER CITYNCLIA [id number] [place] [address] [place] Hemoglobin (Bld) [Mass/Vol] 12.1 g/dL Normal 11.5-15.5 [facility] Comment on above: Order Comment: Speci men Type: BLOOD SPECIMENOrdering Facility: [facility] Address: [address] [place] [address] Performed By: #### 5 7021-8 ####[facility] NAPLESNCLIA [id number] [place] [address] [place] Immature granulocytes (Bld) [#/Vol] 0.03 10*3/uL Normal <0.10 [facility] Comment on above: Order Comment: Speci men Type: BLOOD SPECIMENOrdering Facility: [facility] Address: [address] [place] [address] Performed By: #### 5 7021-8 ####[facility] VERONICASoniaNCLIA [id number] [place] [address] [place] Immature granulocytes/100 WBC (Bld) 0.4 % Normal [facility] Comment on above: Order Comment: Speci men Type: BLOOD SPECIMENOrdering Facility: [facility] Address: [address] [place] [address] Performed By: #### 5 7021-8 ####[facility]ICABUR[facility] [id number] [place] [address] [place] Lymphocytes (Bld) [#/Vol] 1.48 10*3/uL Normal 1.00-4.00 [facility] Comment on above: Order Comment: Speci men Type: BLOOD SPECIMENOrdering Facility: [facility] Address: [address] [place] [address] Performed By: #### 5 7021-8 ####[facility] [id number] [place] [address] [place] Lymphocytes/100 WBC (Bld) 18.7 % Normal [facility] Comment on above: Order Comment: Speci men Type: BLOOD SPECIMENOrdering Facility: [facility] Address: [address] [place] [address] Performed By: #### 5 7021-8 ####[facility] [id number] [address] [place] MCH (RBC) [Entitic mass] 30.6 pg Normal 26.0-34.0 [facility] Comment on above: Order Comment: Speci men Type: BLOOD SPECIMENOrdering Facility: [facility] Address: [address] [place] [address] Performed By: #### 5 7021-8 ####[facility] [id number] [place] [address] [place] MCHC (RBC) [Mass/Vol] 33.2 g/dL Normal 30.5-36.0 [facility] Comment on above: Order Comment: Speci men Type: BLOOD SPECIMENOrdering Facility: [facility] Address: [address] [place] [address] Performed By: #### 5 7021-8 ####[facility] NAPLESNCLI [id number] [place] [address] [place] MCV (RBC) [Entitic vol] 92.2 fL Normal 80.0-100.0 [facility] Comment on above: Order Comment: Speci men Type: BLOOD SPECIMENOrdering Facility: [facility] Address: [address] [place] [address] Performed By: #### 5 7021-8 ####[facility] [id number] [place] [address] [place] Monocytes (Bld) [#/Vol] 1.06 10*3/uL High <0.87 [facility] Comment on above: Order Comment: Speci men Type: BLOOD SPECIMENOrdering Facility: [facility] Address: [address] [place] [address] Performed By: #### 5 7021-8 ####[facility] [id number] [place] [address] [place] Monocytes/100 WBC (Bld) 13.4 % Normal [facility] Comment on above: Order Comment: Speci men Type: BLOOD SPECIMENOrdering Facility: [facility] Address: [address] [place] [address] Performed By: #### 5 7021-8 ####[facility] [id number] [place] [address] [place] Neutrophils (Bld) [#/Vol] 5.14 10*3/uL Normal 1.45-7.50 [facility] Comment on above: Order Comment: Speci men Type: BLOOD SPECIMENOrdering Facility: [facility] Address: [address] [place] [address] Performed By: #### 5 7021-8 ####[facility] [id number] [place] [address] [place] Neutrophils/100 WBC (Bld) 64.7 % Normal [facility] Comment on above: Order Comment: Speci men Type: BLOOD SPECIMENOrdering Facility: [facility] Address: [address] [place] [address] [place] [address] Performed By: #### 5 7021-8 ####[facility] MILLWNCLIA [id number] [place] [address] [place] Nucleated RBC (Bld) [#/Vol] 10*3/uL Normal <0.01 [facility] Comment on above: Order Comment: Speci men Type: BLOOD SPECIMENOrdering Facility: [facility] Address: [address] [place] [address] Performed By: #### 5 7021-8 ####[facility] NAPLESNCLIA [id number] [place] [address] [place] Nucleated RBC/100 WBC (Bld) [Ratio] 0.0 /100 WBC Normal [facility] Comment on above: Order Comment: Speci men Type: BLOOD SPECIMENOrdering Facility: [facility] Address: [address] [place] [address] Performed By: #### 5 7021-8 ####[facility] NAPLESNCLIA [id number] [place] [address] [place] Platelet mean volume (Bld) [Entitic vol] 9.8 fL Normal 9.0-12.7 [facility] Comment on above: Order Comment: Speci men Type: BLOOD SPECIMENOrdering Facility: [facility] Address: [address] [place] [address] Performed By: #### 5 7021-8 ####[facility] NAPLESNCLIA [id number] [place] [address] [place] Platelets (Bld) [#/Vol] 354 10*3/uL Normal 150-400 [facility] Comment on above: Order Comment: Speci men Type: BLOOD SPECIMENOrdering Facility: [facility] Address: [address] [place] [address] Performed By: #### 5 7021-8 ####[facility]PITALL[facility] [id number] [place] [address] [place] RBC (Bld) [#/Vol] 3.95 10*6/uL Normal 3.90-5.20 [facility] Comment on above: Order Comment: Speci men Type: BLOOD SPECIMENOrdering Facility: [facility] Address: [address] [place] [address] Performed By: #### 5 7021-8 ####[facility] NAPLESNCLIA [id number] [place] [address] [place] WBC (Bld) [#/Vol] 7.93 10*3/uL Normal 3.70-11.00 [facility] Comment on above: Order Comment: Speci men Type: BLOOD SPECIMENOrdering Facility: [facility] Address: [address] [place] [address] Performed By: #### 5 7021-8 ####[facility] NAPLESNCLIA [id number] [place] [address] [place] CNPNon 08-06-2024 CNPN Normal [facility] Comprehensive metabolic 2000 panelon 08-06-2024 Albumin [Mass/Vol] 4.1 g/dL Normal 3.9-4.9 [facility] Comment on above: Order Comment: Speci men Type: BLOOD SPECIMENOrdering Facility: [facility] Address: [address] [place] [address] Performed By: #### 2 4323-8 ####[facility] NAPLESNCLIA [id number] [place] [address] [place] ALP [Catalytic activity/Vol] 84 U/L Normal 34-123 [facility] Comment on above: Order Comment: Speci men Type: BLOOD SPECIMENOrdering Facility: [facility] Address: [address] [place] [address] Performed By: #### 2 4323-8 ####[facility] NAPLESNCLIA [id number] [place] [address] [place] ALT [Catalytic activity/Vol] 10 U/L Normal 7-38 [facility] Comment on above: Order Comment: Speci men Type: BLOOD SPECIMENOrdering Facility: [facility] Address: [address] [place] [address] Performed By: #### 2 4323-8 ####[facility] CRISTOFER MILLTOWNCLIA [id number] [place] [address] [place] Anion gap [Moles/Vol] 14 mmol/L Normal 8-15 [facility] Comment on above: Order Comment: Speci men Type: BLOOD SPECIMENOrdering Facility: [facility] Address: [address] [place] [address] Performed By: #### 2 4323-8 ####[facility] CENTERWNCLIA [id number] [place] [address] [place] AST [Catalytic activity/Vol] 16 U/L Normal 13-35 [facility] Comment on above: Order Comment: Speci men Type: BLOOD SPECIMENOrdering Facility: [facility] Address: [address] [place] [address] Performed By: #### 2 4323-8 ####[facility] CENTERWSHAINALIA [id number] [place] [address] [place] Bilirubin [Mass/Vol] 0.3 mg/dL Normal 0.2-1.3 [facility] Comment on above: Order Comment: Speci men Type: BLOOD SPECIMENOrdering Facility: [facility] Address: [address] [place] [address] Performed By: #### 2 4323-8 ####[facility] MILLWNCLIA [id number] [place] [address] [place] Calcium [Mass/Vol] 9.0 mg/dL Normal 8.5-10.2 [facility] Comment on above: Order Comment: Speci men Type: BLOOD SPECIMENOrdering Facility: [facility] Address: [address] [place] [address] Performed By: #### 2 4323-8 ####[facility] VERONICAHAGER CITYNCСЕРГЕЙA [id number] [place] [address] [place] Chloride [Moles/Vol] 97 mmol/L Low 98-107 [facility] Comment on above: Order Comment: Speci men Type: BLOOD SPECIMENOrdering Facility: [facility] Address: [address] [place] [address] Performed By: #### 2 4323-8 ####[facility] NAPLESNCA [id number] [place] [address] [place] CO2 [Moles/Vol] 23 mmol/L Normal 22-30 [facility] Comment on above: Order Comment: Speci men Type: BLOOD SPECIMENOrdering Facility: [facility] Address: [address] [place] [address] Performed By: #### 2 4323-8 ####[facility] NAPLESNCLIA [id number] [place] [address] [place] Creatinine [Mass/Vol] 1.09 mg/dL High 0.58-0.96 [facility] Comment on above: Order Comment: Speci men Type: BLOOD SPECIMENOrdering Facility: [facility] Address: [address] [place] [address] Performed By: #### 2 4323-8 ####[facility] NAPLESNCLIA [id number] [place] [address] [place] Creatinine and Glomerular filtration rate.predicted panel (S/P/Bld) 52 mL/min/1.73m??? Low >=60 [facility] Comment on above: Order Comment: Speci men Type: BLOOD SPECIMENOrdering Facility: [facility] Address: [address] [place] [address] Result Comment: Norma mated Glomerular Filtration Rate (eGFR) is calculated using the 2020 CKD-EPI creatinine equation. This equation utilizes serum creatinine, sex, and age as parameters. The creatinine assay has traceable calibration to isotope dilution-mass spectrometry. Refer to KDIGO guidelines for clinical interpretation. In patients with unstable renal function, e.g. those with acute kidney injury, the eGFR may not accurately reflect actual GFR. Performed By: #### 2 4323-8 ####[facility] [id number] [place] [address] [place] Glucose [Mass/Vol] 87 mg/dL Normal 74-99 [facility] Comment on above: Order Comment: Kristin canales Type: BLOOD SPECIMENOrdering Facility: [facility] Address: [address] [place] [address] Result Comment: The Stateless Diabetes Association (ADA) provides guidance for cutoff values for fasting glucose and random glucose. The ADA defines fasting as no caloric intake for at least 8 hours. Fasting plasma glucose results between 100 to 125 mg/dL indicate increased risk for diabetes (prediabetes).Fasting plasma glucose results greater than or equal to 126 mg/dL meet the criteria for diagnosis of diabetes. In the absence of unequivocal hyperglycemia, results should be confirmed by repeat testing. In a patient with classic symptoms of hyperglycemia or hyperglycemic crisis, random plasma glucose results greater than or equal to 200 mg/dL meet the criteria for diagnosis of diabetes.Reference: Standards of Medical Care in Diabetes 2016, Stateless Diabetes Association. Diabetes Care. 2016.39(Suppl 1). Performed By: #### 2 4323-8 ####[facility] [id number] [place] [address] [place] Potassium [Moles/Vol] 3.7 mmol/L Normal 3.7-5.1 [facility] Comment on above: Order Comment: Kristin canales Type: BLOOD SPECIMENOrdering Facility: [facility] Address: [address] [place] [address] Performed By: #### 2 4323-8 ####[facility] [id number] [place] [address] [place] Protein [Mass/Vol] 6.7 g/dL Normal 6.3-8.0 [facility] Comment on above: Order Comment: Speci men Type: BLOOD SPECIMENOrdering Facility: [facility] Address: [address] [place] [address] Performed By: #### 2 4323-8 ####[facility] HOSPITALLIA [id number] [place] [address] [place] Sodium [Moles/Vol] 134 mmol/L Low 136-144 [facility] Comment on above: Order Comment: Speci men Type: BLOOD SPECIMENOrdering Facility: [facility] Address: [address] [place] [address] Performed By: #### 2 4323-8 ####[facility] [id number] [place] [address] [place] Urea nitrogen [Mass/Vol] 25 mg/dL High 7-21 [facility] Comment on above: Order Comment: Speci men Type: BLOOD SPECIMENOrdering Facility: [facility] Address: [address] [place] [address] Performed By: #### 2 4323-8 ####[facility] NAPLESNCLIA [id number] [place] [address] [place] Venous Duplex US, Unilateral on 07-28-2024 Venous Duplex US, Unilateral [facility] [address] [place] [address] Venous Duplex US, Unilateral 07/28/24 1350 MR#: [id number] Acct: [id number] Name: MARCELO GONZALEZ Rep #: [id number] : 1945 78 From: Tino Mulligan MD Attending Dr: LESLIE Parker Status: REG CL I Ordering Dr: Felipe Gilbert Date: 07/28/24 Location: CVS Sex: F C Admitted: Reason For Study Reason For Study: Right leg pain and swelling RIGHT LEFT GSV is normal. CFV is compressible, spontaneous, phasic, competent, CFV is compressible, spontaneous, phasic, competent and demonstrates normal augmentation. and demonstrates normal augmentation. FV is compressible, spontaneous, phasic, competent and demonstrates normal augmentation. POP V is compressible, spontaneous, phasic, competent and demonstrates normal augmentation. T/P Trunk is compressible. PTV is compressible. RT PerV is compressible. Nonvascularized structure noted in the right popliteal fossa that measures 1.93 x 3.92 cm. Procedure This is a venous duplex using B-mode, color flow and spectral Doppler. Exam performed in department. A preliminary report was called and/or faxed to Grace NELSON. VL/Venous Duplex US, Unilateral Interpretation Summary Deep veins of the right lower extremity are patent and compressible segmentally. There is no evidence of right lower extremity deep vein thrombosis. Valvular competence appears intact within the proximal deep venous system on the right . The right great saphenous vein appears patent and compressible segmentally. A non-vascular, hypoechoic structure is noted in the right popliteal space, measuring 1.93 cm x 3.92 cm. This probably represents a popliteal cyst. Clinical correlation is advised. The left common femoral vein is patent and compressible . Ordering Physician: Felipe Gilbert Referring Physician: Jane Baig Performed By: Saba Hart RVT 07/28/24 102 Date Tino Mulligan MD CC: TARAS Baig; LESLIE Parker Date Dictated: 07/28/24 1350 Date Transcribed: 07/28/242134 Still Operator Batch Or Continuous: Signed Normal [facility] Venous duplex ultrasound rep ortOrdered By: Tino Mulligan on 07-28-2024 US Vein [facility] [address] [address] Venous Duplex US, Unilateral 07/28/24 1350 MR#: [id number] Acct: [id number] Name: MARCELO GONZALEZ Rep #:[id number] : 1945 78 From: Tino Mulligan MD Attending Dr: LESLIE Parker atus: REG CLI Ordering Dr: Felipe Gilbert Date : 07/28/24 Location: CVS Sex: F C Admitted: Reason For Study Reason For Study: Right leg pain and swelling RIGHT LEFT GSV is normal. CFV is compressible, spontaneous, phasic, competent, CFV is compressible, spontaneous, phasic, competent and demonstrates normal augmentation. and demonstrates normal augmentation. FV is compressible, spontaneous, phasic, competent and demonstrates normal augmentation. POP V is compressible, spontaneous, phasic, competent and demonstrates normal augmentation. T/P Trunk is compressible. PTV is compressible. RT PerV is compressible. Nonvascularized structure noted in the right popliteal fossa that measures 1.93 x 3.92 cm. Procedure This is a venous duplex using B-mode, color flow and spectral Doppler. Exam performed in department. A preliminary report was called and/or faxed to Grace NELSON. VL/Venous Duplex US, Unilateral Interpretation Summary Deep veins of the right lower extremity are patent and compressible segmentally.There is no evidence of right lower extremity deep vein thrombosis. Valvular competence appears intact within the proximal deep venous system on the right . The right great saphenous vein appears patent and compressible segmentally. A non-vascular, hypoechoic structure is noted in the right popliteal space, measuring 1.93 cm x 3.92 cm. This probably represents a popliteal cyst. Clinical correlation is advised. The left common femoral vein is patent and compressible . Ordering Physician: Felipe Gilbert Referring Physician: Jane Baig Performed By: Saba Hart RVT 07/28/242134 Date _ Tino Mulligan MD CC: PROCESS PROJECT ENGINEER-C Jane Baig; LESLIE Parker ~ Date Dictated: 07/28/24 1350 Date Transcribed: 07/28/242134 Still Operator Batch Or Continuous: Signed [facility] Other CBC W Auto Differential pane l (Bld)on 07-08-2024 Basophils (Bld) [#/Vol] 0.15 10*3/uL High <0.11 [facility] Comment on above: Order Comment: Speci men Type: BLOOD SPECIMENOrdering Facility: [facility] Address: [address] [place] [address] Performed By: #### 5 7021-8 ####[facility] [id number] [place] [address] [place] Basophils/100 WBC (Bld) 1.8 % Normal [facility] Comment on above: Order Comment: Speci men Type: BLOOD SPECIMENOrdering Facility: [facility] Address: [address] [place] [address] Performed By: #### 5 7021-8 ####[facility] [id number] [place] [address] [place] Differential cell count method Nom (Bld) Auto Normal [facility] Comment on above: Order Comment: Speci men Type: BLOOD SPECIMENOrdering Facility: [facility] Address: [address] [place] [address] Performed By: #### 5 7021-8 ####[facility] MILLWNCLIA [id number] [place] [address] [place] Eosinophils (Bld) [#/Vol] 0.14 10*3/uL Normal <0.46 [facility] Comment on above: Order Comment: Speci men Type: BLOOD SPECIMENOrdering Facility: [facility] Address: [address] [place] [address] Performed By: #### 5 7021-8 ####[facility]OSPITALL[facility] [id number] [place] [address] [place] Eosinophils/100 WBC (Bld) 1.7 % Normal [facility] Comment on above: Order Comment: Speci men Type: BLOOD SPECIMENOrdering Facility: [facility] Address: [address] [place] [address] Performed By: #### 5 7021-8 ####[facility]PITALL[facility] [id number] [place] [address] [place] Erythrocyte distribution width (RBC) [Ratio] 14.4 % Normal 11.5-15.0 [facility] Comment on above: Order Comment: Speci men Type: BLOOD SPECIMENOrdering Facility: [facility] Address: [address] [place] [address] Performed By: #### 5 7021-8 ####[facility] [id number] [place] [address] [place] Hematocrit (Bld) [Volume fraction] 37.2 % Normal 36.0-46.0 [facility] Comment on above: Order Comment: Speci men Type: BLOOD SPECIMENOrdering Facility: [facility] Address: [address] [place] [address] Performed By: #### 5 7021-8 ####[facility] NAPLESNCLIA [id number] [place] [address] [place] Hemoglobin (Bld) [Mass/Vol] 12.3 g/dL Normal 11.5-15.5 [facility] Comment on above: Order Comment: Speci men Type: BLOOD SPECIMENOrdering Facility: [facility] Address: [address] [place] [address] Performed By: #### 5 7021-8 ####[facility] [id number] [place] [address] [place] Immature granulocytes (Bld) [#/Vol] 0.05 10*3/uL Normal <0.10 [facility] Comment on above: Order Comment: Speci men Type: BLOOD SPECIMENOrdering Facility: [facility] Address: [address] [place] [address] Performed By: #### 5 7021-8 ####[facility] NAPLESNCA [id number] [place] [address] [place] Immature granulocytes/100 WBC (Bld) 0.6 % Normal [facility] Comment on above: Order Comment: Speci men Type: BLOOD SPECIMENOrdering Facility: [facility] Address: [address] [place] [address] Performed By: #### 5 7021-8 ####[facility] NAPLESNCA [id number] [place] [address] [place] Lymphocytes (Bld) [#/Vol] 1.38 10*3/uL Normal 1.00-4.00 [facility] Comment on above: Order Comment: Speci men Type: BLOOD SPECIMENOrdering Facility: [facility] Address: [address] [place] [address] Performed By: #### 5 7021-8 ####[facility] NAPLESNCLIA [id number] [place] [address] [place] Lymphocytes/100 WBC (Bld) 16.7 % Normal [facility] Comment on above: Order Comment: Speci men Type: BLOOD SPECIMENOrdering Facility: [facility] Address: [address] [place] [address] Performed By: #### 5 7021-8 ####[facility] VERONICASoniaNCERVIN [id number] [place] [address] [place] MCH (RBC) [Entitic mass] 30.7 pg Normal 26.0-34.0 [facility] Comment on above: Order Comment: Speci men Type: BLOOD SPECIMENOrdering Facility: [facility] Address: [address] [place] [address] Performed By: #### 5 7021-8 ####[facility] NAPLESNCLIA [id number] [place] [address] [place] MCHC (RBC) [Mass/Vol] 33.1 g/dL Normal 30.5-36.0 [facility] Comment on above: Order Comment: Speci men Type: BLOOD SPECIMENOrdering Facility: [facility] Address: [address] [place] [address] Performed By: #### 5 7021-8 ####[facility] NAPLESNCA [id number] [place] [address] [place] MCV (RBC) [Entitic vol] 92.8 fL Normal 80.0-100.0 [facility] Comment on above: Order Comment: Speci men Type: BLOOD SPECIMENOrdering Facility: [facility] Address: [address] [place], [place] [address] Performed By: #### 5 7021-8 ####[facility]LESN[facility] [id number] [place] [address] [place] Monocytes (Bld) [#/Vol] 1.01 10*3/uL High <0.87 [facility] Comment on above: Order Comment: Speci men Type: BLOOD SPECIMENOrdering Facility: [facility] Address: [address] [place], [place] [address] Performed By: #### 5 7021-8 ####[facility] MILLTOWNCLIA [id number] [place] [address] [place] Monocytes/100 WBC (Bld) 12.2 % Normal [facility] Comment on above: Order Comment: Speci men Type: BLOOD SPECIMENOrdering Facility: [facility] Address: [address] [place] [address] Performed By: #### 5 7021-8 ####[facility] CENTERWNCLIA [id number] [place] [address] [place] Neutrophils (Bld) [#/Vol] 5.52 10*3/uL Normal 1.45-7.50 [facility] Comment on above: Order Comment: Speci men Type: BLOOD SPECIMENOrdering Facility: [facility] Address: [address] [place] [address] Performed By: #### 5 7021-8 ####[facility]ITALL[facility] [id number] [place] [address] [place] Neutrophils/100 WBC (Bld) 67.0 % Normal [facility] Comment on above: Order Comment: Speci men Type: BLOOD SPECIMENOrdering Facility: [facility] Address: [address] [place] [address] Performed By: #### 5 7021-8 ####[facility] CENTERWNCLIA [id number] [place] [address] [place] Nucleated RBC (Bld) [#/Vol] 10*3/uL Normal <0.01 [facility] Comment on above: Order Comment: Speci men Type: BLOOD SPECIMENOrdering Facility: [facility] Address: [address] [place] [address] Performed By: #### 5 7021-8 ####[facility] NAPLESNCLIA [id number] [place] [address] [place] Nucleated RBC/100 WBC (Bld) [Ratio] 0.0 /100 WBC Normal [facility] Comment on above: Order Comment: Speci men Type: BLOOD SPECIMENOrdering Facility: [facility] Address: [address] [place] [address] Performed By: #### 5 7021-8 ####[facility] NAPLESNCСЕРГЕЙA [id number] [place] [address] [place] Platelet mean volume (Bld) [Entitic vol] 10.1 fL Normal 9.0-12.7 [facility] Comment on above: Order Comment: Speci men Type: BLOOD SPECIMENOrdering Facility: [facility] Address: [address] [place] [address] Performed By: #### 5 7021-8 ####[facility] NAPLESNCA [id number] [place] [address] [place] Platelets (Bld) [#/Vol] 341 10*3/uL Normal 150-400 [facility] Comment on above: Order Comment: Speci men Type: BLOOD SPECIMENOrdering Facility: [facility] Address: [address] [place] [address] Performed By: #### 5 7021-8 ####[facility] NAPLESNCLIA [id number] [place] [address] [place] RBC (Bld) [#/Vol] 4.01 10*6/uL Normal 3.90-5.20 [facility] Comment on above: Order Comment: Speci men Type: BLOOD SPECIMENOrdering Facility: [facility] Address: [address] [place] [address] Performed By: #### 5 7021-8 ####[facility] NAPLESNCLIA [id number] [place] [address] [place] WBC (Bld) [#/Vol] 8.25 10*3/uL Normal 3.70-11.00 [facility] Comment on above: Order Comment: Speci men Type: BLOOD SPECIMENOrdering Facility: [facility] Address: [address] [place] [address] Performed By: #### 5 7021-8 ####[facility] CRISTOFER MARTINHAGER CITYNCLIA [id number] [place] [address] [place] CNOVSPon 07-08-2024 CNOVSP Normal [facility] Comprehensive metabolic 2000 panelon 07-08-2024 Albumin [Mass/Vol] 4.1 g/dL Normal 3.9-4.9 [facility] Comment on above: Order Comment: Speci men Type: BLOOD SPECIMENOrdering Facility: [facility] Address: [address] [place] [address] Performed By: #### 2 4323-8 ####[facility] LABCLIA [id number] [place] [address] [place] ALP [Catalytic activity/Vol] 99 U/L Normal 34-123 [facility] Comment on above: Order Comment: Speci men Type: BLOOD SPECIMENOrdering Facility: [facility] Address: [address] [place] [address] Performed By: #### 2 4323-8 ####[facility] LABCLIA [id number] [place] [address] [place] ALT With P-5'-P [Catalytic activity/Vol] 16 U/L Normal 7-38 [facility] Comment on above: Order Comment: Speci men Type: BLOOD SPECIMENOrdering Facility: [facility] Address: [address] [place] [address] Performed By: #### 2 4323-8 ####[facility] LABCLIA [id number] [place] [address] [place] Anion gap [Moles/Vol] 14 mmol/L Normal 8-15 [facility] Comment on above: Order Comment: Speci men Type: BLOOD SPECIMENOrdering Facility: [facility] Address: [address] [place] [address] Performed By: #### 2 4323-8 ####[facility] LABCLIA [id number] [facility] [place] [address] [place] AST With P-5'-P [Catalytic activity/Vol] 22 U/L Normal 13-35 [facility] Comment on above: Order Comment: Speci men Type: BLOOD SPECIMENOrdering Facility: [facility] Address: [address] [place] [address] Performed By: #### 2 4323-8 ####[facility] LABCLIA [id number] [facility] [place] [address] [place] Bilirubin [Mass/Vol] 0.3 mg/dL Normal 0.2-1.3 [facility] Comment on above: Order Comment: Speci men Type: BLOOD SPECIMENOrdering Facility: [facility] Address: [address] [place] [address] Performed By: #### 2 4323-8 ####[facility] LABCLIA [id number] [facility] [place] [address] [place] Calcium [Mass/Vol] 9.2 mg/dL Normal 8.5-10.2 [facility] Comment on above: Order Comment: Speci men Type: BLOOD SPECIMENOrdering Facility: [facility] Address: [address] [place] [address] Performed By: #### 2 4323-8 ####[facility] LABCLIA [id number] [facility] [place] [address] [place] Chloride [Moles/Vol] 99 mmol/L Normal 98-107 [facility] Comment on above: Order Comment: Speci men Type: BLOOD SPECIMENOrdering Facility: [facility] Address: [address] [place] [address] Performed By: #### 2 4323-8 ####[facility] LABCLIA [id number] [facility] [place] [address] [place] CO2 [Moles/Vol] 24 mmol/L Normal 22-30 [facility] Comment on above: Order Comment: Speci men Type: BLOOD SPECIMENOrdering Facility: [facility] Address: [address] [place] [address] Performed By: #### 2 4323-8 ####[facility] CouchsurfingI LABCLIA [id number] [place] [address] [place] Creatinine [Mass/Vol] 1.09 mg/dL High 0.58-0.96 [facility] Comment on above: Order Comment: Speci men Type: BLOOD SPECIMENOrdering Facility: [facility] Address: [address] [place] [address] Performed By: #### 2 4323-8 ####[facility] CouchsurfingI LABCLIA [id number] [place] [address] [place] [facility] Creatinine and Glomerular filtration rate.predicted panel (S/P/Bld) 52 mL/min/1.73m??? Low >=60 [facility] Comment on above: Order Comment: Speci men Type: BLOOD SPECIMENOrdering Facility: [facility] Address: [address] [place] [address] Result Comment: Norma mated Glomerular Filtration Rate (eGFR) is calculated using the 2020 CKD-EPI creatinine equation. This equation utilizes serum creatinine, sex, and age as parameters. The creatinine assay has traceable calibration to isotope dilution-mass spectrometry. Refer to KDIGO guidelines for clinical interpretation. In patients with unstable renal function, e.g. those with acute kidney injury, the eGFR may not accurately reflect actual GFR. Performed By: #### 2 4323-8 ####[facility] CouchsurfingI LABCLIA [id number] [place] [address] [place] Glucose [Mass/Vol] 92 mg/dL Normal 74-99 [facility] Comment on above: Order Comment: Kristin canales Type: BLOOD SPECIMENOrdering Facility: [facility] Address: [address] [place] [address] Result Comment: The Stateless Diabetes Association (ADA) provides guidance for cutoff values for fasting glucose and random glucose. The ADA defines fasting as no caloric intake for at least 8 hours. Fasting plasma glucose results between 100 to 125 mg/dL indicate increased risk for diabetes (prediabetes).Fasting plasma glucose results greater than or equal to 126 mg/dL meet the criteria for diagnosis of diabetes. In the absence of unequivocal hyperglycemia, results should be confirmed by repeat testing. In a patient with classic symptoms of hyperglycemia or hyperglycemic crisis, random plasma glucose results greater than or equal to 200 mg/dL meet the criteria for diagnosis of diabetes.Reference: Standards of Medical Care in Diabetes 2016, Stateless Diabetes Association. Diabetes Care. 2016.39(Suppl 1). Performed By: #### 2 4323-8 ####[facility] LABCLIA [id number] [place] [address] [place] Potassium [Moles/Vol] 4.1 mmol/L Normal 3.7-5.1 [facility] Comment on above: Order Comment: Kristin canales Type: BLOOD SPECIMENOrdering Facility: [facility] Address: [address] [place] [address] Performed By: #### 2 4323-8 ####[facility] LABCLIA [id number] [place] [address] [place] Protein [Mass/Vol] 7.2 g/dL Normal 6.3-8.0 [facility] Comment on above: Order Comment: Kristin canales Type: BLOOD SPECIMENOrdering Facility: [facility] Address: [address] [place] [address] Performed By: #### 2 4323-8 ####[facility] LABCLIA [id number] [place] [address] [place] Sodium [Moles/Vol] 137 mmol/L Normal 136-144 [facility] Comment on above: Order Comment: Kristin canales Type: BLOOD SPECIMENOrdering Facility: [facility] Address: [address] [place] [address] Performed By: #### 2 4323-8 ####[facility] LABCLIA [id number] [place] [address] [place] Urea nitrogen [Mass/Vol] 19 mg/dL Normal 7-21 [facility] Comment on above: Order Comment: Speci men Type: BLOOD SPECIMENOrdering Facility: [facility] Address: [address] [place] [address] Performed By: #### 2 4323-8 ####[facility] LABCLIA [id number] [place] [address] [place] CBC W Auto Differential pane l (Bld)on 06-05-2024 Basophils (Bld) [#/Vol] 0.15 10*3/uL High <0.11 [facility] Comment on above: Order Comment: Speci men Type: BLOOD SPECIMENOrdering Facility: [facility] Address: [address] [place] [address] Performed By: #### 5 7021-8 ####[facility] [id number] [place] [address] [place] Basophils/100 WBC (Bld) 2.2 % Normal [facility] Comment on above: Order Comment: Speci men Type: BLOOD SPECIMENOrdering Facility: [facility] Address: [address] [place] [address] Performed By: #### 5 7021-8 ####[facility] [id number] [place] [address] [place] Differential cell count method Nom (Bld) Auto Normal [facility] Comment on above: Order Comment: Speci men Type: BLOOD SPECIMENOrdering Facility: [facility] Address: [address] [place] [address] Performed By: #### 5 7021-8 ####[facility] [id number] [place] [address] [place] Eosinophils (Bld) [#/Vol] 0.15 10*3/uL Normal <0.46 [facility] Comment on above: Order Comment: Speci men Type: BLOOD SPECIMENOrdering Facility: [facility] Address: [address] [place] [address] Performed By: #### 5 7021-8 ####[facility] MILLWNCLIA [id number] [place] [address] [place] Eosinophils/100 WBC (Bld) 2.2 % Normal [facility] Comment on above: Order Comment: Speci men Type: BLOOD SPECIMENOrdering Facility: [facility] Address: [address] [place] [address] Performed By: #### 5 7021-8 ####[facility] NAPLESSHAINALIA [id number] [place] [address] [place] Erythrocyte distribution width (RBC) [Ratio] 14.1 % Normal 11.5-15.0 [facility] Comment on above: Order Comment: Speci men Type: BLOOD SPECIMENOrdering Facility: [facility] Address: [address] [place] [address] Performed By: #### 5 7021-8 ####[facility]PITALL[facility] [id number] [place] [address] [place] Hematocrit (Bld) [Volume fraction] 37.1 % Normal 36.0-46.0 [facility] Comment on above: Order Comment: Speci men Type: BLOOD SPECIMENOrdering Facility: [facility] Address: [address] [place] [address] Performed By: #### 5 7021-8 ####[facility]OSPITALL[facility] [id number] [place] [address] [place] Hemoglobin (Bld) [Mass/Vol] 12.2 g/dL Normal 11.5-15.5 [facility] Comment on above: Order Comment: Speci men Type: BLOOD SPECIMENOrdering Facility: [facility] Address: [address] [place] [address] Performed By: #### 5 7021-8 ####[facility] NAPLESSHAINALIA [id number] [place] [address] [place] Immature granulocytes (Bld) [#/Vol] 0.03 10*3/uL Normal <0.10 [facility] Comment on above: Order Comment: Speci men Type: BLOOD SPECIMENOrdering Facility: [facility] Address: [address] [place] [address] Performed By: #### 5 7021-8 ####[facility]ITALL[facility] [id number] [place] [address] [place] Immature granulocytes/100 WBC (Bld) 0.4 % Normal [facility] Comment on above: Order Comment: Speci men Type: BLOOD SPECIMENOrdering Facility: [facility] Address: [address] [place] [address] Performed By: #### 5 7021-8 ####[facility]LESNCUNIVERS[facility] [id number] [place] [address] [place] Lymphocytes (Bld) [#/Vol] 1.39 10*3/uL Normal 1.00-4.00 [facility] Comment on above: Order Comment: Speci men Type: BLOOD SPECIMENOrdering Facility: [facility] Address: [address] [place] [address] Performed By: #### 5 7021-8 ####[facility] [id number] [place] [address] [place] Lymphocytes/100 WBC (Bld) 20.0 % Normal [facility] Comment on above: Order Comment: Speci men Type: BLOOD SPECIMENOrdering Facility: [facility] Address: [address] [place] [address] Performed By: #### 5 7021-8 ####[facility]LESNCUNIV[facility] [id number] [place] [address] [place] MCH (RBC) [Entitic mass] 30.6 pg Normal 26.0-34.0 [facility] Comment on above: Order Comment: Speci men Type: BLOOD SPECIMENOrdering Facility: [facility] Address: [address] [place] [address] Performed By: #### 5 7021-8 ####[facility] JEANE [id number] [place] [address] [place] MCHC (RBC) [Mass/Vol] 32.9 g/dL Normal 30.5-36.0 [facility] Comment on above: Order Comment: Speci men Type: BLOOD SPECIMENOrdering Facility: [facility] Address: [address] [place] [address] Performed By: #### 5 7021-8 ####[facility] NAPLESROSIE [id number] [place] [address] [place] MCV (RBC) [Entitic vol] 93.0 fL Normal 80.0-100.0 [facility] Comment on above: Order Comment: Speci men Type: BLOOD SPECIMENOrdering Facility: [facility] Address: [address] [place] [address] Performed By: #### 5 7021-8 ####[facility] NAPLESNCСЕРГЕЙA [id number] [place] [address] [place] Monocytes (Bld) [#/Vol] 1.00 10*3/uL High <0.87 [facility] Comment on above: Order Comment: Speci men Type: BLOOD SPECIMENOrdering Facility: [facility] Address: [address] [place] [address] Performed By: #### 5 7021-8 ####[facility] NAPLESNCLIA [id number] [place] [address] [place] Monocytes/100 WBC (Bld) 14.4 % Normal [facility] Comment on above: Order Comment: Speci men Type: BLOOD SPECIMENOrdering Facility: [facility] Address: [address] [place] [address] Performed By: #### 5 7021-8 ####[facility] MILLWNCLIA [id number] [place] [address] [place] Neutrophils (Bld) [#/Vol] 4.23 10*3/uL Normal 1.45-7.50 [facility] Comment on above: Order Comment: Speci men Type: BLOOD SPECIMENOrdering Facility: [facility] Address: [address] [place] [address] Performed By: #### 5 7021-8 ####[facility]ITALL[facility] [id number] [place] [address] [place] Neutrophils/100 WBC (Bld) 60.8 % Normal [facility] Comment on above: Order Comment: Speci men Type: BLOOD SPECIMENOrdering Facility: [facility] Address: [address] [place] [address] Performed By: #### 5 7021-8 ####[facility]OSPITALLIA [id number] [place] [address] [place] Nucleated RBC (Bld) [#/Vol] 10*3/uL Normal <0.01 [facility] Comment on above: Order Comment: Speci men Type: BLOOD SPECIMENOrdering Facility: [facility] Address: [address] [place] [address] Performed By: #### 5 7021-8 ####[facility]PITALL[facility] [id number] [place] [address] [place] Nucleated RBC/100 WBC (Bld) [Ratio] 0.0 /100 WBC Normal [facility] Comment on above: Order Comment: Speci men Type: BLOOD SPECIMENOrdering Facility: [facility] Address: [address] [place] [address] Performed By: #### 5 7021-8 ####[facility] NAPLESNCLIA [id number] [place] [address] [place] Platelet mean volume (Bld) [Entitic vol] 10.0 fL Normal 9.0-12.7 [facility] Comment on above: Order Comment: Speci men Type: BLOOD SPECIMENOrdering Facility: [facility] Address: [address] [place] [address] Performed By: #### 5 7021-8 ####[facility] VERONICASoniaNCСЕРГЕЙA [id number] [place] [address] [place] Platelets (Bld) [#/Vol] 336 10*3/uL Normal 150-400 [facility] Comment on above: Order Comment: Speci men Type: BLOOD SPECIMENOrdering Facility: [facility] Address: [address] [place] [address] Performed By: #### 5 7021-8 ####[facility] NAPLESNCLIA [id number] [place] [address] [place] RBC (Bld) [#/Vol] 3.99 10*6/uL Normal 3.90-5.20 [facility] Comment on above: Order Comment: Speci men Type: BLOOD SPECIMENOrdering Facility: [facility] Address: [address] [place] [address] Performed By: #### 5 7021-8 ####[facility] NAPLESNCLIA [id number] [place] [address] [place] WBC (Bld) [#/Vol] 6.95 10*3/uL Normal 3.70-11.00 [facility] Comment on above: Order Comment: Speci men Type: BLOOD SPECIMENOrdering Facility: [facility] Address: [address] [place] [address] Performed By: #### 5 7021-8 ####[facility] CENTERWNCLIA [id number] [place] [address] [place] Comprehensive metabolic 2000 panelon 06-05-2024 Albumin [Mass/Vol] 4.5 g/dL Normal 3.9-4.9 [facility] Comment on above: Order Comment: Speci men Type: BLOOD SPECIMENOrdering Facility: [facility] Address: [address] [place] [address] Performed By: #### 2 4323-8 ####[facility]PITALL[facility] [id number] [place] [address] [place] ALP [Catalytic activity/Vol] 107 U/L Normal 34-123 [facility] Comment on above: Order Comment: Speci men Type: BLOOD SPECIMENOrdering Facility: [facility] Address: [address] [place] [address] Performed By: #### 2 4323-8 ####[facility] [id number] [place] [address] [place] ALT [Catalytic activity/Vol] 17 U/L Normal 7-38 [facility] Comment on above: Order Comment: Speci men Type: BLOOD SPECIMENOrdering Facility: [facility] Address: [address] [place] [address] Performed By: #### 2 4323-8 ####[facility] [id number] [address] [place] Anion gap [Moles/Vol] 9 mmol/L Normal 8-15 [facility] Comment on above: Order Comment: Speci men Type: BLOOD SPECIMENOrdering Facility: [facility] Address: [address] [place] [address] Performed By: #### 2 4323-8 ####[facility] [id number] [place] [address] [place] AST [Catalytic activity/Vol] 20 U/L Normal 13-35 [facility] Comment on above: Order Comment: Speci men Type: BLOOD SPECIMENOrdering Facility: [facility] Address: [address] [place] [address] Performed By: #### 2 4323-8 ####[facility]OF[facility] MILLTOWNCLIA [id number] [place] [address] [place] Bilirubin [Mass/Vol] 0.3 mg/dL Normal 0.2-1.3 [facility] Comment on above: Order Comment: Speci men Type: BLOOD SPECIMENOrdering Facility: [facility] Address: [address] [place] [address] Performed By: #### 2 4323-8 ####[facility] MILLTOWNCLIA [id number] [place] [address] [place] Calcium [Mass/Vol] 9.5 mg/dL Normal 8.5-10.2 [facility] Comment on above: Order Comment: Speci men Type: BLOOD SPECIMENOrdering Facility: [facility] Address: [address] [place] [address] Performed By: #### 2 4323-8 ####[facility] CENTERWNCLIA [id number] [place] [address] [place] Chloride [Moles/Vol] 99 mmol/L Normal 98-107 [facility] Comment on above: Order Comment: Speci men Type: BLOOD SPECIMENOrdering Facility: [facility] Address: [address] [place] [address] Performed By: #### 2 4323-8 ####[facility] MILLTOWNCLIA [id number] [place] [address] [place] CO2 [Moles/Vol] 28 mmol/L Normal 22-30 [facility] Comment on above: Order Comment: Speci men Type: BLOOD SPECIMENOrdering Facility: [facility] Address: [address] [place], [place] [address] Performed By: #### 2 4323-8 ####[facility] MILLWNCLIA [id number] [place] [address] [place] Creatinine [Mass/Vol] 1.06 mg/dL High 0.58-0.96 [facility] Comment on above: Order Comment: Kristin canales Type: BLOOD SPECIMENOrdering Facility: [facility] Address: [address] [place] [address] Performed By: #### 2 4323-8 ####[facility] [id number] [place] [address] [place] Creatinine and Glomerular filtration rate.predicted panel (S/P/Bld) 54 mL/min/1.73m??? Low >=60 [facility] Comment on above: Order Comment: Kristin canales Type: BLOOD SPECIMENOrdering Facility: [facility] Address: [address] [place] [address] Result Comment: Norma mated Glomerular Filtration Rate (eGFR) is calculated using the 2020 CKD-EPI creatinine equation. This equation utilizes serum creatinine, sex, and age as parameters. The creatinine assay has traceable calibration to isotope dilution-mass spectrometry. Refer to KDIGO guidelines for clinical interpretation. In patients with unstable renal function, e.g. those with acute kidney injury, the eGFR may not accurately reflect actual GFR. Performed By: #### 2 4323-8 ####[facility] [id number] [place] [address] [place] Glucose [Mass/Vol] 76 mg/dL Normal 74-99 [facility] Comment on above: Order Comment: Kristin canales Type: BLOOD SPECIMENOrdering Facility: [facility] Address: [address] [place] [address] Result Comment: The [employer]eless Diabetes Association (ADA) provides guidance for cutoff values for fasting glucose and random glucose. The ADA defines fasting as no caloric intake for at least 8 hours. Fasting plasma glucose results between 100 to 125 mg/dL indicate increased risk for diabetes (prediabetes).Fasting plasma glucose results greater than or equal to 126 mg/dL meet the criteria for diagnosis of diabetes. In the absence of unequivocal hyperglycemia, results should be confirmed by repeat testing. In a patient with classic symptoms of hyperglycemia or hyperglycemic crisis, random plasma glucose results greater than or equal to 200 mg/dL meet the criteria for diagnosis of diabetes.Reference: Standards of Medical Care in Diabetes 2016, Stateless Diabetes Association. Diabetes Care. 2016.39(Suppl 1). Performed By: #### 2 4323-8 ####[facility] APOPKASolitario [id number] [place] [address] [place] Potassium [Moles/Vol] 3.5 mmol/L Low 3.7-5.1 [facility] Comment on above: Order Comment: Speci men Type: BLOOD SPECIMENOrdering Facility: [facility] Address: [address] [place] [address] Performed By: #### 2 4323-8 ####[facility] [id number] [place] [address] [place] Protein [Mass/Vol] 7.4 g/dL Normal 6.3-8.0 [facility] Comment on above: Order Comment: Speci men Type: BLOOD SPECIMENOrdering Facility: [facility] Address: [address] [place], [place] [address] Performed By: #### 2 4323-8 ####[facility] [id number] [place] [address] [place] Sodium [Moles/Vol] 136 mmol/L Normal 136-144 [facility] Comment on above: Order Comment: Speci men Type: BLOOD SPECIMENOrdering Facility: [facility] Address: [address] [place] [address] Performed By: #### 2 4323-8 ####[facility] [id number] [place] [address] [place] Urea nitrogen [Mass/Vol] 20 mg/dL Normal 7-21 [facility] Comment on above: Order Comment: Speci men Type: BLOOD SPECIMENOrdering Facility: [facility] Address: [address] [place] [address] Performed By: #### 2 4323-8 ####[facility] CENTERWNCLIA [id number] [place] [address] [place] Bacteria Ur Culton Bacteria identified Cx Nom (U) ORGANISM ID: 1 10,000 -<50,000 CFU/ml Normal urogenital shell Normal [facility] Comment on above: Performed By: #### 6 30-4 ####[facility] LABCLIA [id number] [place] [address] [place] CNPNon 05-11-2024 CNPN Normal [facility] CBC W Auto Differential pane l (Bld)on 05-05-2024 Basophils (Bld) [#/Vol] 0.17 10*3/uL High <0.11 [facility] Comment on above: Order Comment: Speci men Type: BLOOD SPECIMENOrdering Facility: [facility] Address: [address] [place] [address] Performed By: #### 5 7021-8 ####[facility] [id number] [place] [address] [place] Basophils/100 WBC (Bld) 2.6 % Normal [facility] Comment on above: Order Comment: Speci men Type: BLOOD SPECIMENOrdering Facility: [facility] Address: [address] [place] [address] Performed By: #### 5 7021-8 ####[facility] NAPLESNCLIA [id number] [place] [address] [place] Differential cell count method Nom (Bld) Auto Normal [facility] Comment on above: Order Comment: Speci men Type: BLOOD SPECIMENOrdering Facility: [facility] Address: [address] [place] [address] Performed By: #### 5 7021-8 ####[facility]ITALL[facility] [id number] [place] [address] [place] Eosinophils (Bld) [#/Vol] 0.15 10*3/uL Normal <0.46 [facility] Comment on above: Order Comment: Speci men Type: BLOOD SPECIMENOrdering Facility: [facility] Address: [address] [place] [address] Performed By: #### 5 7021-8 ####[facility] NAPLESSHAINALIA [id number] [place] [address] [place] Eosinophils/100 WBC (Bld) 2.3 % Normal [facility] Comment on above: Order Comment: Speci men Type: BLOOD SPECIMENOrdering Facility: [facility] Address: [address] [place] [address] Performed By: #### 5 7021-8 ####[facility] NAPLESNCСЕРГЕЙA [id number] [place] [address] [place] Erythrocyte distribution width (RBC) [Ratio] 13.8 % Normal 11.5-15.0 [facility] Comment on above: Order Comment: Speci men Type: BLOOD SPECIMENOrdering Facility: [facility] Address: [address] [place] [address] Performed By: #### 5 7021-8 ####[facility] NAPLESNCLIA [id number] [place] [address] [place] Hematocrit (Bld) [Volume fraction] 36.9 % Normal 36.0-46.0 [facility] Comment on above: Order Comment: Speci men Type: BLOOD SPECIMENOrdering Facility: [facility] Address: [address] [place] [address] Performed By: #### 5 7021-8 ####[facility] NAPLESNCLIA [id number] [place] [address] [place] Hemoglobin (Bld) [Mass/Vol] 12.2 g/dL Normal 11.5-15.5 [facility] Comment on above: Order Comment: Speci men Type: BLOOD SPECIMENOrdering Facility: [facility] Address: [address] [place] [address] Performed By: #### 5 7021-8 ####[facility] VERONICAHAGER CITYROSIE [id number] [place] [address] [place] Immature granulocytes (Bld) [#/Vol] 0.04 10*3/uL Normal <0.10 [facility] Comment on above: Order Comment: Speci men Type: BLOOD SPECIMENOrdering Facility: [facility] Address: [address] [place] [address] Performed By: #### 5 7021-8 ####[facility] [id number] [place] [address] [place] Immature granulocytes/100 WBC (Bld) 0.6 % Normal [facility] Comment on above: Order Comment: Speci men Type: BLOOD SPECIMENOrdering Facility: [facility] Address: [address] [place] [address] Performed By: #### 5 7021-8 ####[facility] [id number] [place] [address] [place] Lymphocytes (Bld) [#/Vol] 1.23 10*3/uL Normal 1.00-4.00 [facility] Comment on above: Order Comment: Speci men Type: BLOOD SPECIMENOrdering Facility: [facility] Address: [address] [place] [address] Performed By: #### 5 7021-8 ####[facility] [id number] [place] [address] [place] Lymphocytes/100 WBC (Bld) 18.9 % Normal [facility] Comment on above: Order Comment: Speci men Type: BLOOD SPECIMENOrdering Facility: [facility] Address: [address] [place] [address] Performed By: #### 5 7021-8 ####[facility] NAPLESNCLIA [id number] [place] [address] [place] MCH (RBC) [Entitic mass] 30.9 pg Normal 26.0-34.0 [facility] Comment on above: Order Comment: Speci men Type: BLOOD SPECIMENOrdering Facility: [facility] Address: [address] [place] [address] Performed By: #### 5 7021-8 ####[facility]OSPITALL[facility] [id number] [place] [address] [place] MCHC (RBC) [Mass/Vol] 33.1 g/dL Normal 30.5-36.0 [facility] Comment on above: Order Comment: Speci men Type: BLOOD SPECIMENOrdering Facility: [facility] Address: [address] [place] [address] Performed By: #### 5 7021-8 ####[facility] [id number] [place] [address] [place] MCV (RBC) [Entitic vol] 93.4 fL Normal 80.0-100.0 [facility] Comment on above: Order Comment: Speci men Type: BLOOD SPECIMENOrdering Facility: [facility] Address: [address] [place] [address] Performed By: #### 5 7021-8 ####[facility]OSPITALLI [id number] [place] [address] [place] Monocytes (Bld) [#/Vol] 0.87 10*3/uL High <0.87 [facility] Comment on above: Order Comment: Speci men Type: BLOOD SPECIMENOrdering Facility: [facility] Address: [address] [place], [place] [address] Performed By: #### 5 7021-8 ####[facility] [id number] [place] [address] [place] Monocytes/100 WBC (Bld) 13.3 % Normal [facility] Comment on above: Order Comment: Speci men Type: BLOOD SPECIMENOrdering Facility: [facility] Address: [address] [place] [address] Performed By: #### 5 7021-8 ####[facility] NAPLESNCA [id number] [place] [address] [place] Neutrophils (Bld) [#/Vol] 4.06 10*3/uL Normal 1.45-7.50 [facility] Comment on above: Order Comment: Speci men Type: BLOOD SPECIMENOrdering Facility: [facility] Address: [address] [place] [address] Performed By: #### 5 7021-8 ####[facility] [id number] [place] [address] [place] Neutrophils/100 WBC (Bld) 62.3 % Normal [facility] Comment on above: Order Comment: Speci men Type: BLOOD SPECIMENOrdering Facility: [facility] Address: [address] [place] [address] Performed By: #### 5 7021-8 ####[facility] [id number] [place] [address] [place] Nucleated RBC (Bld) [#/Vol] 10*3/uL Normal <0.01 [facility] Comment on above: Order Comment: Speci men Type: BLOOD SPECIMENOrdering Facility: [facility] Address: [address] [place] [address] Performed By: #### 5 7021-8 ####[facility] [id number] [place] [address] [place] Nucleated RBC/100 WBC (Bld) [Ratio] 0.0 /100 WBC Normal [facility] Comment on above: Order Comment: Speci men Type: BLOOD SPECIMENOrdering Facility: [facility] Address: [address] [place] [address] Performed By: #### 5 7021-8 ####[facility] CRISTOFER JEANE [id number] [place] [address] [place] Platelet mean volume (Bld) [Entitic vol] 10.0 fL Normal 9.0-12.7 [facility] Comment on above: Order Comment: Speci men Type: BLOOD SPECIMENOrdering Facility: [facility] Address: [address] [place] [address] Performed By: #### 5 7021-8 ####[facility] VERONICAHAGER CITYROSIE [id number] [place] [address] [place] Platelets (Bld) [#/Vol] 348 10*3/uL Normal 150-400 [facility] Comment on above: Order Comment: Speci men Type: BLOOD SPECIMENOrdering Facility: [facility] Address: [address] [place] [address] Performed By: #### 5 7021-8 ####[facility] VERONICAHAGER CITYNCLIA [id number] [place] [address] [place] RBC (Bld) [#/Vol] 3.95 10*6/uL Normal 3.90-5.20 [facility] Comment on above: Order Comment: Speci men Type: BLOOD SPECIMENOrdering Facility: [facility] Address: [address] [place] [address] Performed By: #### 5 7021-8 ####[facility] NAPLESNCLIA [id number] [place] [address] [place] WBC (Bld) [#/Vol] 6.52 10*3/uL Normal 3.70-11.00 [facility] Comment on above: Order Comment: Speci men Type: BLOOD SPECIMENOrdering Facility: [facility] Address: [address] [place] [address] Performed By: #### 5 7021-8 ####[facility] MILLTOWNCLIA [id number] [place] [address] [place] Comprehensive metabolic 2000 panelon 05-05-2024 Albumin [Mass/Vol] 4.2 g/dL Normal 3.9-4.9 [facility] Comment on above: Order Comment: Speci men Type: BLOOD SPECIMENOrdering Facility: [facility] Address: [address] [place] [address] Performed By: #### 2 4323-8 ####[facility] MILLTOWNCLIA [id number] [place] [address] [place] ALP [Catalytic activity/Vol] 112 U/L Normal 34-123 [facility] Comment on above: Order Comment: Speci men Type: BLOOD SPECIMENOrdering Facility: [facility] Address: [address] [place] [address] Performed By: #### 2 4323-8 ####[facility] MILLTOWNCLIA [id number] [address] STATES [facility] ALT [Catalytic activity/Vol] 10 U/L Normal 7-38 [facility] Comment on above: Order Comment: Speci men Type: BLOOD SPECIMENOrdering Facility: [facility] Address: [address] [place] [address] Performed By: #### 2 4323-8 ####[facility] MILLTOWNCLIA [id number] [place] [address] [place] Anion gap [Moles/Vol] 13 mmol/L Normal 8-15 [facility] Comment on above: Order Comment: Speci men Type: BLOOD SPECIMENOrdering Facility: [facility] Address: [address] [place] [address] Performed By: #### 2 4323-8 ####[facility] MILLTOWNCLIA [id number] [place] [address] [place] AST [Catalytic activity/Vol] 16 U/L Normal 13-35 [facility] Comment on above: Order Comment: Speci men Type: BLOOD SPECIMENOrdering Facility: [facility] Address: [address] [place] [address] Performed By: #### 2 4323-8 ####[facility] CRISTOFER MILLTOWNCLIA [id number] [place] [address] [place] Bilirubin [Mass/Vol] 0.4 mg/dL Normal 0.2-1.3 [facility] Comment on above: Order Comment: Speci men Type: BLOOD SPECIMENOrdering Facility: [facility] Address: [address] [place] [address] Performed By: #### 2 4323-8 ####[facility] CENTERWNCLISolitario [id number] [place] [address] [place] Calcium [Mass/Vol] 9.2 mg/dL Normal 8.5-10.2 [facility] Comment on above: Order Comment: Speci men Type: BLOOD SPECIMENOrdering Facility: [facility] Address: [address] [place] [address] Performed By: #### 2 4323-8 ####[facility] VERONICAWNCLIA [id number] [place] [address] [place] Chloride [Moles/Vol] 100 mmol/L Normal 98-107 [facility] Comment on above: Order Comment: Speci men Type: BLOOD SPECIMENOrdering Facility: [facility] Address: [address] [place] [address] Performed By: #### 2 4323-8 ####[facility] CRISTOFER MILLTOWNCLIA [id number] [place] [address] [place] CO2 [Moles/Vol] 24 mmol/L Normal 22-30 [facility] Comment on above: Order Comment: Speci men Type: BLOOD SPECIMENOrdering Facility: [facility] Address: [address] [place] [address] Performed By: #### 2 4323-8 ####[facility] VERONICAHAGER CITYROSIE [id number] [place] [address] [place] Creatinine [Mass/Vol] 1.10 mg/dL High 0.58-0.96 [facility] Comment on above: Order Comment: Speci men Type: BLOOD SPECIMENOrdering Facility: [facility] Address: [address] [place] [address] Performed By: #### 2 4323-8 ####[facility] [id number] [place] [address] [place] Creatinine and Glomerular filtration rate.predicted panel (S/P/Bld) 52 mL/min/1.73m??? Low >=60 [facility] Comment on above: Order Comment: Speci men Type: BLOOD SPECIMENOrdering Facility: [facility] Address: [address] [place] [address] Result Comment: Norma mated Glomerular Filtration Rate (eGFR) is calculated using the 2020 CKD-EPI creatinine equation. This equation utilizes serum creatinine, sex, and age as parameters. The creatinine assay has traceable calibration to isotope dilution-mass spectrometry. Refer to KDIGO guidelines for clinical interpretation. In patients with unstable renal function, e.g. those with acute kidney injury, the eGFR may not accurately reflect actual GFR. Performed By: #### 2 4323-8 ####[facility] [id number] [place] [address] [place] Glucose [Mass/Vol] 81 mg/dL Normal 74-99 [facility] Comment on above: Order Comment: Speci men Type: BLOOD SPECIMENOrdering Facility: [facility] Address: [address] [place] [address] Result Comment: The Stateless Diabetes Association (ADA) provides guidance for cutoff values for fasting glucose and random glucose. The ADA defines fasting as no caloric intake for at least 8 hours. Fasting plasma glucose results between 100 to 125 mg/dL indicate increased risk for diabetes (prediabetes).Fasting plasma glucose results greater than or equal to 126 mg/dL meet the criteria for diagnosis of diabetes. In the absence of unequivocal hyperglycemia, results should be confirmed by repeat testing. In a patient with classic symptoms of hyperglycemia or hyperglycemic crisis, random plasma glucose results greater than or equal to 200 mg/dL meet the criteria for diagnosis of diabetes.Reference: Standards of Medical Care in Diabetes 2016, Stateless Diabetes Association. Diabetes Care. 2016.39(Suppl 1). Performed By: #### 2 4323-8 ####[facility] MILLTOWNCLIA [id number] [place] [address] [place] Potassium [Moles/Vol] 3.9 mmol/L Normal 3.7-5.1 [facility] Comment on above: Order Comment: Speci men Type: BLOOD SPECIMENOrdering Facility: [facility] Address: [address] [place] [address] Performed By: #### 2 4323-8 ####[facility] CENTERWNJLIA [id number] [place] [address] [place] Protein [Mass/Vol] 6.9 g/dL Normal 6.3-8.0 [facility] Comment on above: Order Comment: Speci men Type: BLOOD SPECIMENOrdering Facility: [facility] Address: [address] [place] [address] Performed By: #### 2 4323-8 ####[facility] MILLTOWNCLIA [id number] [place] [address] [place] Sodium [Moles/Vol] 137 mmol/L Normal 136-144 [facility] Comment on above: Order Comment: Speci men Type: BLOOD SPECIMENOrdering Facility: [facility] Address: [address] [place], [place] [address] Performed By: #### 2 4323-8 ####[facility] MILLWNCLIA [id number] [place] [address] [place] Urea nitrogen [Mass/Vol] 17 mg/dL Normal 7-21 [facility] Comment on above: Order Comment: Speci men Type: BLOOD SPECIMENOrdering Facility: [facility] Address: [address] [place] [address] Performed By: #### 2 4323-8 ####[facility] [id number] [place] [address] [place] Bacteria Ur Culton Bacteria identified Cx Nom (U) Abnormal [facility] Comment on above: Performed By: #### 6 30-4 ####[facility] LABCLIA [id number] [place] [address] [place] CNOVon 04-17-2024 CNOV Normal [facility] UA DIP, URINE (POC)on 2024 BILIRUBIN UA (POCT) Negative Negative [facility] CLARITY UA (POCT) Cloudy [facility] COLOR UA (POCT) Yellow [facility] GLUCOSE UA (POCT) Negative Negative mg/dL [facility] Hemoglobin Ql (U) Trace-intact Abnormal Negative [facility] Interpretation and review of laboratory results Abnormal [facility] KETONE UA (POCT) Negative Negative mg/dL [facility] LEUKOCYTES UA (POCT) Moderate Abnormal Negative [facility] NITRITE UA (POCT) Positive Abnormal Negative [facility] PH UA (POCT) 5.5 4.5 - 8.0 [facility] Protein Ql (U) Negative Negative mg/dL [facility] SPECIFIC GRAVITY UA (POCT) 1.01 1.005 - 1.030 [facility] UROBILINOGEN UA (POCT) 0.2 Normal E.U./dL [facility] Location:[facility], [address] [place] [address], [place], [place], [id number] [place] [address] POINT OF CARE [facility] CBC W Auto Differential pane l (Bld)on 04-07-2024 Basophils (Bld) [#/Vol] 0.19 10*3/uL High <0.11 [facility] Comment on above: Order Comment: Speci men Type: BLOOD SPECIMENOrdering Facility: [facility] Address: [address] [place] [address] Performed By: #### 5 7021-8 ####[facility] RHONDAWNCLIA [id number] [place] [address] [place] Basophils/100 WBC (Bld) 2.5 % Normal [facility] Comment on above: Order Comment: Speci men Type: BLOOD SPECIMENOrdering Facility: [facility] Address: [address] [place] [address] Performed By: #### 5 7021-8 ####[facility] HOSPITALLIA [id number] [place] [address] [place] Differential cell count method Nom (Bld) Auto Normal [facility] Comment on above: Order Comment: Speci men Type: BLOOD SPECIMENOrdering Facility: [facility] Address: [address] [place] [address] Performed By: #### 5 7021-8 ####[facility] HOSPITALLIA [id number] [place] [address] [place] Eosinophils (Bld) [#/Vol] 0.11 10*3/uL Normal <0.46 [facility] Comment on above: Order Comment: Speci men Type: BLOOD SPECIMENOrdering Facility: [facility] Address: [address] [place] [address] Performed By: #### 5 7021-8 ####[facility] MILLWNCLIA [id number] [place] [address] [place] Eosinophils/100 WBC (Bld) 1.4 % Normal [facility] Comment on above: Order Comment: Speci men Type: BLOOD SPECIMENOrdering Facility: [facility] Address: [address] [place] [address] Performed By: #### 5 7021-8 ####[facility] CENTERSoniaNCLIA [id number] [place] [address] [place] Erythrocyte distribution width (RBC) [Ratio] 13.5 % Normal 11.5-15.0 [facility] Comment on above: Order Comment: Speci men Type: BLOOD SPECIMENOrdering Facility: [facility] Address: [address] [place] [address] Performed By: #### 5 7021-8 ####[facility] NAPLESSHAINAERVIN [id number] [place] [address] [place] Hematocrit (Bld) [Volume fraction] 37.4 % Normal 36.0-46.0 [facility] Comment on above: Order Comment: Speci men Type: BLOOD SPECIMENOrdering Facility: [facility] Address: [address] [place] [address] Performed By: #### 5 7021-8 ####[facility] NAPLESROSIE [id number] [place] [address] [place] Hemoglobin (Bld) [Mass/Vol] 12.3 g/dL Normal 11.5-15.5 [facility] Comment on above: Order Comment: Speci men Type: BLOOD SPECIMENOrdering Facility: [facility] Address: [address] [place] [address] Performed By: #### 5 7021-8 ####[facility] NAPLESROSIE [id number] [place] [address] [place] Immature granulocytes (Bld) [#/Vol] 0.03 10*3/uL Normal <0.10 [facility] Comment on above: Order Comment: Speci men Type: BLOOD SPECIMENOrdering Facility: [facility] Address: [address] [place] [address] Performed By: #### 5 7021-8 ####[facility] NAPLESNCLIA [id number] [place] [address] [place] Immature granulocytes/100 WBC (Bld) 0.4 % Normal [facility] Comment on above: Order Comment: Speci men Type: BLOOD SPECIMENOrdering Facility: [facility] Address: [address] [place] [address] Performed By: #### 5 7021-8 ####[facility]APLESNCUNIVERSITY [facility] [id number] [place] [address] [place] Lymphocytes (Bld) [#/Vol] 1.27 10*3/uL Normal 1.00-4.00 [facility] Comment on above: Order Comment: Speci men Type: BLOOD SPECIMENOrdering Facility: [facility] Address: [address] [place] [address] Performed By: #### 5 7021-8 ####[facility] [id number] [place] [address] [place] Lymphocytes/100 WBC (Bld) 16.4 % Normal [facility] Comment on above: Order Comment: Speci men Type: BLOOD SPECIMENOrdering Facility: [facility] Address: [address] [place] [address] Performed By: #### 5 7021-8 ####[facility]APLESNCUNIVERSITY OF [facility] [id number] [place] [address] [place] MCH (RBC) [Entitic mass] 31.1 pg Normal 26.0-34.0 [facility] Comment on above: Order Comment: Speci men Type: BLOOD SPECIMENOrdering Facility: [facility] Address: [address] [place], [place] [address] Performed By: #### 5 7021-8 ####[facility] [id number] [place] [address] [place] MCHC (RBC) [Mass/Vol] 32.9 g/dL Normal 30.5-36.0 [facility] Comment on above: Order Comment: Speci men Type: BLOOD SPECIMENOrdering Facility: [facility] Address: [address] [place] [address] Performed By: #### 5 7021-8 ####[facility] VERONICAHAGER CITYROSIE [id number] [place] [address] [place] MCV (RBC) [Entitic vol] 94.7 fL Normal 80.0-100.0 [facility] Comment on above: Order Comment: Speci men Type: BLOOD SPECIMENOrdering Facility: [facility] Address: [address] [place] [address] Performed By: #### 5 7021-8 ####[facility] NAPLESNCUNIVERSITY OF [facility] [id number] [place] [address] [place] Monocytes (Bld) [#/Vol] 0.96 10*3/uL High <0.87 [facility] Comment on above: Order Comment: Speci men Type: BLOOD SPECIMENOrdering Facility: [facility] Address: [address] [place] [address] Performed By: #### 5 7021-8 ####[facility] NAPLESNCA [id number] [place] [address] [place] Monocytes/100 WBC (Bld) 12.4 % Normal [facility] Comment on above: Order Comment: Speci men Type: BLOOD SPECIMENOrdering Facility: [facility] Address: [address] [place] [address] Performed By: #### 5 7021-8 ####[facility] NAPLESNCLIA [id number] [place] [address] [place] Neutrophils (Bld) [#/Vol] 5.18 10*3/uL Normal 1.45-7.50 [facility] Comment on above: Order Comment: Speci men Type: BLOOD SPECIMENOrdering Facility: [facility] Address: [address] [place] [address] Performed By: #### 5 7021-8 ####[facility] VERONICAWSHAINALIA [id number] [place] [address] [place] Neutrophils/100 WBC (Bld) 66.9 % Normal [facility] Comment on above: Order Comment: Speci men Type: BLOOD SPECIMENOrdering Facility: [facility] Address: [address] [place] [address] Performed By: #### 5 7021-8 ####[facility] NAPLESSHAINALIA [id number] [place] [address] [place] Nucleated RBC (Bld) [#/Vol] 10*3/uL Normal <0.01 [facility] Comment on above: Order Comment: Speci men Type: BLOOD SPECIMENOrdering Facility: [facility] Address: [address] [place] [address] Performed By: #### 5 7021-8 ####[facility] [id number] [place] [address] [place] Nucleated RBC/100 WBC (Bld) [Ratio] 0.0 /100 WBC Normal [facility] Comment on above: Order Comment: Speci men Type: BLOOD SPECIMENOrdering Facility: [facility] Address: [address] [place] [address] Performed By: #### 5 7021-8 ####[facility] HOSPITALСЕРГЕЙA [id number] [place] [address] [place] Platelet mean volume (Bld) [Entitic vol] 10.4 fL Normal 9.0-12.7 [facility] Comment on above: Order Comment: Speci men Type: BLOOD SPECIMENOrdering Facility: [facility] Address: [address] [place] [address] Performed By: #### 5 7021-8 ####[facility] HOSPITALLIA [id number] [place] [address] [place] Platelets (Bld) [#/Vol] 285 10*3/uL Normal 150-400 [facility] Comment on above: Order Comment: Speci men Type: BLOOD SPECIMENOrdering Facility: [facility] Address: [address] [place] [address] Performed By: #### 5 7021-8 ####[facility] CENTERWNCLIA [id number] [place] [address] [place] RBC (Bld) [#/Vol] 3.95 10*6/uL Normal 3.90-5.20 [facility] Comment on above: Order Comment: Speci men Type: BLOOD SPECIMENOrdering Facility: [facility] Address: [address] [place] [address] Performed By: #### 5 7021-8 ####[facility] NAPLESNCLIA [id number] [place] [address] [place] WBC (Bld) [#/Vol] 7.74 10*3/uL Normal 3.70-11.00 [facility] Comment on above: Order Comment: Speci men Type: BLOOD SPECIMENOrdering Facility: [facility] Address: [address] [place] [address] Performed By: #### 5 7021-8 ####[facility] NAPLESNCLIA [id number] [place] [address] [place] CNOVSPon 04-07-2024 CNOVSP Normal [facility] Comprehensive metabolic 2000 panelon 04-07-2024 Albumin [Mass/Vol] 4.2 g/dL Normal 3.9-4.9 [facility] Comment on above: Order Comment: Speci men Type: BLOOD SPECIMENOrdering Facility: [facility] Address: [address] [place] [address] Performed By: #### 2 4323-8 ####[facility] NAPLESNCLIA [id number] [place] [address] [place] ALP [Catalytic activity/Vol] 115 U/L Normal 34-123 [facility] Comment on above: Order Comment: Speci men Type: BLOOD SPECIMENOrdering Facility: [facility] Address: [facility] [place] [address] Performed By: #### 2 4323-8 ####[facility] NAPLESNCLIA [id number] [place] [address] [place] ALT [Catalytic activity/Vol] 11 U/L Normal 7-38 [facility] Comment on above: Order Comment: Speci men Type: BLOOD SPECIMENOrdering Facility: [facility] Address: [address] [place] [address] Performed By: #### 2 4323-8 ####[facility] NAPLESNCUNIVERSITY OF [facility] [id number] [place] [address] [place] Anion gap [Moles/Vol] 10 mmol/L Normal 8-15 [facility] Comment on above: Order Comment: Speci men Type: BLOOD SPECIMENOrdering Facility: [facility] Address: [address] [place] [address] Performed By: #### 2 4323-8 ####[facility] [id number] [place] [address] [place] AST [Catalytic activity/Vol] 18 U/L Normal 13-35 [facility] Comment on above: Order Comment: Speci men Type: BLOOD SPECIMENOrdering Facility: [facility] Address: [address] [place] [address] Performed By: #### 2 4323-8 ####[facility] NAPLESNCA [id number] [place] [address] [place] Bilirubin [Mass/Vol] 0.4 mg/dL Normal 0.2-1.3 [facility] Comment on above: Order Comment: Speci men Type: BLOOD SPECIMENOrdering Facility: [facility] Address: [address] [place] [address] Performed By: #### 2 4323-8 ####[facility] CRISTOFER MILLTOWNCLIA [id number] [place] [address] [place] Calcium [Mass/Vol] 9.5 mg/dL Normal 8.5-10.2 [facility] Comment on above: Order Comment: Speci men Type: BLOOD SPECIMENOrdering Facility: [facility] Address: [address] [place] [address] Performed By: #### 2 4323-8 ####[facility] MILLTOWNCLIA [id number] [place] [address] [place] Chloride [Moles/Vol] 100 mmol/L Normal 98-107 [facility] Comment on above: Order Comment: Speci men Type: BLOOD SPECIMENOrdering Facility: [facility] Address: [address] [place] [address] Performed By: #### 2 4323-8 ####[facility] CENTERWNCLIA [id number] [place] [address] [place] CO2 [Moles/Vol] 27 mmol/L Normal 22-30 [facility] Comment on above: Order Comment: Speci men Type: BLOOD SPECIMENOrdering Facility: [facility] Address: [address] [place] [address] Performed By: #### 2 4323-8 ####[facility] MILLTOWNCLIA [id number] [place] [address] [place] Creatinine [Mass/Vol] 1.22 mg/dL High 0.58-0.96 [facility] Comment on above: Order Comment: Speci men Type: BLOOD SPECIMENOrdering Facility: [facility] Address: [address] [place], [place] [address] Performed By: #### 2 4323-8 ####[facility] MILLWNCLIA [id number] [place] [address] [place] Creatinine and Glomerular filtration rate.predicted panel (S/P/Bld) 46 mL/min/1.73m??? Low >=60 [facility] Comment on above: Order Comment: Kristin canales Type: BLOOD SPECIMENOrdering Facility: [facility] Address: [address] [place] [address] Result Comment: Norma mated Glomerular Filtration Rate (eGFR) is calculated using the 2020 CKD-EPI creatinine equation. This equation utilizes serum creatinine, sex, and age as parameters. The creatinine assay has traceable calibration to isotope dilution-mass spectrometry. Refer to KDIGO guidelines for clinical interpretation. In patients with unstable renal function, e.g. those with acute kidney injury, the eGFR may not accurately reflect actual GFR. Performed By: #### 2 4323-8 ####[facility] [id number] [place] [address] [place] Glucose [Mass/Vol] 91 mg/dL Normal 74-99 [facility] Comment on above: Order Comment: Kristin canales Type: BLOOD SPECIMENOrdering Facility: [facility] Address: [address] [place] [address] Result Comment: The Stateless Diabetes Association (ADA) provides guidance for cutoff values for fasting glucose and random glucose. The ADA defines fasting as no caloric intake for at least 8 hours. Fasting plasma glucose results between 100 to 125 mg/dL indicate increased risk for diabetes (prediabetes).Fasting plasma glucose results greater than or equal to 126 mg/dL meet the criteria for diagnosis of diabetes. In the absence of unequivocal hyperglycemia, results should be confirmed by repeat testing. In a patient with classic symptoms of hyperglycemia or hyperglycemic crisis, random plasma glucose results greater than or equal to 200 mg/dL meet the criteria for diagnosis of diabetes.Reference: Standards of Medical Care in Diabetes 2016, Stateless Diabetes Association. Diabetes Care. 2016.39(Suppl 1). Performed By: #### 2 4323-8 ####[facility] [id number] [place] [address] [place] Potassium [Moles/Vol] 3.8 mmol/L Normal 3.7-5.1 [facility] Comment on above: Order Comment: Speci men Type: BLOOD SPECIMENOrdering Facility: [facility] Address: [address] [place] [address] Performed By: #### 2 4323-8 ####[facility] VERONICASoniaNCLIA [id number] [place] [address] [place] Protein [Mass/Vol] 7.1 g/dL Normal 6.3-8.0 [facility] Comment on above: Order Comment: Speci men Type: BLOOD SPECIMENOrdering Facility: [facility] Address: [address] [place] [address] Performed By: #### 2 4323-8 ####[facility] NAPLESNCLIA [id number] [place] [address] [place] Sodium [Moles/Vol] 137 mmol/L Normal 136-144 [facility] Comment on above: Order Comment: Speci men Type: BLOOD SPECIMENOrdering Facility: [facility] Address: [address] [place] [address] Performed By: #### 2 4323-8 ####[facility] [id number] [place] [address] [place] Urea nitrogen [Mass/Vol] 21 mg/dL Normal 7-21 [facility] Comment on above: Order Comment: Speci men Type: BLOOD SPECIMENOrdering Facility: [facility] Address: [address] [place] [address] Performed By: #### 2 4323-8 ####[facility] NAPLESNCLIA [id number] [place] [address] [place] CNPNon 04-03-2024 CNPN Normal [facility] CNOVon 04-02-2024 CNOV Normal [facility] XR CHEST 2V FRONTAL/LATon XR CHEST 2V FRONTAL/LAT Normal [facility] XR Chest PA and Lateralon IMPRESSION: Stable exam with no definite evidence of acute radiographic abnormality. Still Operator Batch Or Continuous: [facility]ENTERRodolfo Transcribe Date/Time: Apr 02 2024 6:09P Dictated by : RHONDA CHAVEZ MD This examination was interpreted and the report reviewed and electronically signed by: RHONDA CHAVEZ MD on Apr 02 2024 6:10PM [facility] DIVISION OF RADIOLOGY * * *Final Report* * * DATE OF EXAM: Apr 02 2024 5:58PM WOX 5291 - XR CHEST 2V FRONTAL/LAT / PROCEDURE REASON: Acute cough * * * * Physician Interpretation * * * * EXAMINATION: CHEST RADIOGRAPH (2 VIEW FRONTAL & LATERAL) CLINICAL HISTORY: Acute cough MQ: XC2_6 EXAM DATE/TIME: 04/02/2024 5:58 PM COMPARISON: 11/23/2021. RESULT: Lines, tubes, and devices: None. Lungs and pleura: No consolidation. No lung mass. No pleural effusion. No pneumothorax. Cardiomediastinal silhouette: Stable cardiomediastinal silhouette. Bones and soft tissues: The patient is status post cervical spine surgery. DIVISION OF RADIOLOGY Provider, [facility] - 04/02/2024 * * *Final Report* * * DATE OF EXAM: Apr 02 2024 5:58PM WOX 5291 - XR CHEST 2V FRONTAL/LAT / PROCEDURE REASON: Acute cough * * * * Physician Interpretation * * * * EXAMINATION: CHEST RADIOGRAPH (2 VIEW FRONTAL & LATERAL) CLINICAL HISTORY: Acute cough MQ: XC2_6 EXAM DATE/TIME: 04/02/2024 5:58 PM COMPARISON: 11/23/2021. RESULT: Lines, tubes, and devices: None. Lungs and pleura: No consolidation. No lung mass. No pleural effusion. No pneumothorax. Cardiomediastinal silhouette: Stable cardiomediastinal silhouette. Bones and soft tissues: The patient is status post cervical spine surgery. IMPRESSION IMPRESSION: Stable exam with no definite evidence of acute radiographic abnormality. Still Operator Batch Or Continuous: [facility] Transcribe Date/Time: Apr 02 2024 6:09P Dictated by : RHONDA CHAVEZ MD This examination was interpreted and the report reviewed and electronically signed by: RHONDA CHAVEZ MD on Apr 02 2024 6:10PM EST [facility] Radiology Study observation (narrative) [facility] XR Chest PA and LateralOrder ed By: [facility] Provider on 04-02-2024 [facility] CNPNon 03-30-2024 CNPN Normal [facility] CBC W Auto Differential pane l (Bld)on 03-03-2024 Basophils (Bld) [#/Vol] 0.13 10*3/uL High <0.11 [facility] Comment on above: Order Comment: Speci men Type: BLOOD SPECIMENOrdering Facility: [facility] Address: [address] [place] [address] Performed By: #### 5 7021-8 ####[facility] [id number] [place] [address] [place] Basophils/100 WBC (Bld) 1.8 % Normal [facility] Comment on above: Order Comment: Speci men Type: BLOOD SPECIMENOrdering Facility: [facility] Address: [address] [place] [address] Performed By: #### 5 7021-8 ####[facility] [id number] [place] [address] [place] Differential cell count method Nom (Bld) Auto Normal [facility] Comment on above: Order Comment: Speci men Type: BLOOD SPECIMENOrdering Facility: [facility] Address: [address] [place] [address] Performed By: #### 5 7021-8 ####[facility] [id number] [place] [address] [place] Eosinophils (Bld) [#/Vol] 0.14 10*3/uL Normal <0.46 [facility] Comment on above: Order Comment: Speci men Type: BLOOD SPECIMENOrdering Facility: [facility] Address: [address] [place] [address] Performed By: #### 5 7021-8 ####[facility] MILLWNCLIA [id number] [place] [address] [place] Eosinophils/100 WBC (Bld) 1.9 % Normal [facility] Comment on above: Order Comment: Speci men Type: BLOOD SPECIMENOrdering Facility: [facility] Address: [address] [place] [address] Performed By: #### 5 7021-8 ####[facility] [id number] [place] [address] [place] Erythrocyte distribution width (RBC) [Ratio] 14.2 % Normal 11.5-15.0 [facility] Comment on above: Order Comment: Speci men Type: BLOOD SPECIMENOrdering Facility: [facility] Address: [address] [place] [address] Performed By: #### 5 7021-8 ####[facility] [id number] [address] [place] Hematocrit (Bld) [Volume fraction] 37.5 % Normal 36.0-46.0 [facility] Comment on above: Order Comment: Speci men Type: BLOOD SPECIMENOrdering Facility: [facility] Address: [address] [place] [address] Performed By: #### 5 7021-8 ####[facility] NAPLESSHAINALIA [id number] [place] [address] [place] Hemoglobin (Bld) [Mass/Vol] 12.1 g/dL Normal 11.5-15.5 [facility] Comment on above: Order Comment: Speci men Type: BLOOD SPECIMENOrdering Facility: [facility] Address: [address] [place] [address] Performed By: #### 5 7021-8 ####[facility] NAPLESNCLIA [id number] [place] [address] [place] Immature granulocytes (Bld) [#/Vol] 0.13 10*3/uL High <0.10 [facility] Comment on above: Order Comment: Speci men Type: BLOOD SPECIMENOrdering Facility: [facility] Address: [address] [place] [address] Performed By: #### 5 7021-8 ####[facility] [id number] [place] [address] [place] Immature granulocytes/100 WBC (Bld) 1.8 % Normal [facility] Comment on above: Order Comment: Speci men Type: BLOOD SPECIMENOrdering Facility: [facility] Address: [address] [place] [address] Performed By: #### 5 7021-8 ####[facility] [id number] [place] [address] [place] Lymphocytes (Bld) [#/Vol] 1.62 10*3/uL Normal 1.00-4.00 [facility] Comment on above: Order Comment: Speci men Type: BLOOD SPECIMENOrdering Facility: [facility] Address: [address] [place] [address] Performed By: #### 5 7021-8 ####[facility] [id number] [place] [address] [place] Lymphocytes/100 WBC (Bld) 22.3 % Normal [facility] Comment on above: Order Comment: Speci men Type: BLOOD SPECIMENOrdering Facility: [facility] Address: [address] [place] [address] Performed By: #### 5 7021-8 ####[facility] [id number] [place] [address] [place] MCH (RBC) [Entitic mass] 30.5 pg Normal 26.0-34.0 [facility] Comment on above: Order Comment: Speci men Type: BLOOD SPECIMENOrdering Facility: [facility] Address: [address] [place] [address] Performed By: #### 5 7021-8 ####[facility] VERONICAHAGER CITYROSIE [id number] [place] [address] [place] MCHC (RBC) [Mass/Vol] 32.3 g/dL Normal 30.5-36.0 [facility] Comment on above: Order Comment: Speci men Type: BLOOD SPECIMENOrdering Facility: [facility] Address: [address] [place] [address] Performed By: #### 5 7021-8 ####[facility]LESNCUNIVERSITY [facility] [id number] [place] [address] [place] MCV (RBC) [Entitic vol] 94.5 fL Normal 80.0-100.0 [facility] Comment on above: Order Comment: Speci men Type: BLOOD SPECIMENOrdering Facility: [facility] Address: [address] [place] [address] Performed By: #### 5 7021-8 ####[facility] [id number] [place] [address] [place] Monocytes (Bld) [#/Vol] 1.06 10*3/uL High <0.87 [facility] Comment on above: Order Comment: Speci men Type: BLOOD SPECIMENOrdering Facility: [facility] Address: [address] [place] [address] Performed By: #### 5 7021-8 ####[facility] NAPLESNCLI [id number] [place] [address] [place] Monocytes/100 WBC (Bld) 14.6 % Normal [facility] Comment on above: Order Comment: Speci men Type: BLOOD SPECIMENOrdering Facility: [facility] Address: [address] [place] [address] Performed By: #### 5 7021-8 ####[facility] MILLWNCLIA [id number] [place] [address] [place] Neutrophils (Bld) [#/Vol] 4.19 10*3/uL Normal 1.45-7.50 [facility] Comment on above: Order Comment: Speci men Type: BLOOD SPECIMENOrdering Facility: [facility] Address: [address] [place] [address] Performed By: #### 5 7021-8 ####[facility] CENTERWNJLIA [id number] [place] [address] [place] Neutrophils/100 WBC (Bld) 57.6 % Normal [facility] Comment on above: Order Comment: Speci men Type: BLOOD SPECIMENOrdering Facility: [facility] Address: [address] [place] [address] Performed By: #### 5 7021-8 ####[facility] [id number] [place] [address] [place] Nucleated RBC (Bld) [#/Vol] 10*3/uL Normal <0.01 [facility] Comment on above: Order Comment: Speci men Type: BLOOD SPECIMENOrdering Facility: [facility] Address: [address] [place] [address] Performed By: #### 5 7021-8 ####[facility] [id number] [place] [address] [place] Nucleated RBC/100 WBC (Bld) [Ratio] 0.0 /100 WBC Normal [facility] Comment on above: Order Comment: Speci men Type: BLOOD SPECIMENOrdering Facility: [facility] Address: [address] [place] [address] Performed By: #### 5 7021-8 ####[facility] NAPLESNCLIA [id number] [place] [address] [place] Platelet mean volume (Bld) [Entitic vol] 10.3 fL Normal 9.0-12.7 [facility] Comment on above: Order Comment: Speci men Type: BLOOD SPECIMENOrdering Facility: [facility] Address: [address] [place] [address] Performed By: #### 5 7021-8 ####[facility] NAPLESNCLIA [id number] [place] [address] [place] Platelets (Bld) [#/Vol] 318 10*3/uL Normal 150-400 [facility] Comment on above: Order Comment: Speci men Type: BLOOD SPECIMENOrdering Facility: [facility] Address: [address] [place] [address] Performed By: #### 5 7021-8 ####[facility]LESNCUNIVERS[facility] [id number] [place] [address] [place] RBC (Bld) [#/Vol] 3.97 10*6/uL Normal 3.90-5.20 [facility] Comment on above: Order Comment: Speci men Type: BLOOD SPECIMENOrdering Facility: [facility] Address: [address] [place] [address] Performed By: #### 5 7021-8 ####[facility] NAPLESNCA [id number] [place] [address] [place] WBC (Bld) [#/Vol] 7.27 10*3/uL Normal 3.70-11.00 [facility] Comment on above: Order Comment: Speci men Type: BLOOD SPECIMENOrdering Facility: [facility] Address: [address] [place] [address] Performed By: #### 5 7021-8 ####[facility] NAPLESNCLIA [id number] [place] [address] [place] Comprehensive metabolic 2000 panelon 03-03-2024 Albumin [Mass/Vol] 4.0 g/dL Normal 3.9-4.9 [facility] Comment on above: Order Comment: Speci men Type: BLOOD SPECIMENOrdering Facility: [facility] Address: [address] [place] [address] Performed By: #### 2 4323-8 ####[facility] [id number] [place] [address] [place] ALP [Catalytic activity/Vol] 98 U/L Normal 34-123 [facility] Comment on above: Order Comment: Speci men Type: BLOOD SPECIMENOrdering Facility: [facility] Address: [address] [place] [address] Performed By: #### 2 4323-8 ####[facility] CENTERWNJLIA [id number] [place] [address] [place] ALT [Catalytic activity/Vol] 11 U/L Normal 7-38 [facility] Comment on above: Order Comment: Speci men Type: BLOOD SPECIMENOrdering Facility: [facility] Address: [address] [place] [address] Performed By: #### 2 4323-8 ####[facility] [id number] [place] [address] [place] Anion gap [Moles/Vol] 11 mmol/L Normal 8-15 [facility] Comment on above: Order Comment: Speci men Type: BLOOD SPECIMENOrdering Facility: [facility] Address: [address] [place] [address] Performed By: #### 2 4323-8 ####[facility] CENTERWNCLIA [id number] [place] [address] [place] AST [Catalytic activity/Vol] 15 U/L Normal 13-35 [facility] Comment on above: Order Comment: Speci men Type: BLOOD SPECIMENOrdering Facility: [facility] Address: [address] [place] [address] Performed By: #### 2 4323-8 ####[facility] MILLTOWNCLIA [id number] [place] [address] [place] Bilirubin [Mass/Vol] 0.3 mg/dL Normal 0.2-1.3 [facility] Comment on above: Order Comment: Speci men Type: BLOOD SPECIMENOrdering Facility: [facility] Address: [address] [place] [address] Performed By: #### 2 4323-8 ####[facility] MILLTOWNCLIA [id number] [place] [address] [place] Calcium [Mass/Vol] 9.1 mg/dL Normal 8.5-10.2 [facility] Comment on above: Order Comment: Speci men Type: BLOOD SPECIMENOrdering Facility: [facility] Address: [address] [place] [address] Performed By: #### 2 4323-8 ####[facility] CENTERWNCLIA [id number] [place] [address] [place] Chloride [Moles/Vol] 100 mmol/L Normal 98-107 [facility] Comment on above: Order Comment: Speci men Type: BLOOD SPECIMENOrdering Facility: [facility] Address: [address] [place] [address] Performed By: #### 2 4323-8 ####[facility] MILLTOWNCLIA [id number] [place] [address] [place] CO2 [Moles/Vol] 27 mmol/L Normal 22-30 [facility] Comment on above: Order Comment: Speci men Type: BLOOD SPECIMENOrdering Facility: [facility] Address: [address] [place] [address] Performed By: #### 2 4323-8 ####[facility] CENTERWNCLIA [id number] [place] [address] [place] Creatinine [Mass/Vol] 1.05 mg/dL High 0.58-0.96 [facility] Comment on above: Order Comment: Kristin canales Type: BLOOD SPECIMENOrdering Facility: [facility] Address: [address] [place] [address] Performed By: #### 2 4323-8 ####[facility] [id number] [place] [address] [place] Creatinine and Glomerular filtration rate.predicted panel (S/P/Bld) 54 mL/min/1.73m??? Low >=60 [facility] Comment on above: Order Comment: Kristin canales Type: BLOOD SPECIMENOrdering Facility: [facility] Address: [address] [place] [address] Result Comment: Norma mated Glomerular Filtration Rate (eGFR) is calculated using the 2020 CKD-EPI creatinine equation. This equation utilizes serum creatinine, sex, and age as parameters. The creatinine assay has traceable calibration to isotope dilution-mass spectrometry. Refer to KDIGO guidelines for clinical interpretation. In patients with unstable renal function, e.g. those with acute kidney injury, the eGFR may not accurately reflect actual GFR. Performed By: #### 2 4323-8 ####[facility] [id number] [place] [address] [place] Glucose [Mass/Vol] 87 mg/dL Normal 74-99 [facility] Comment on above: Order Comment: Kristin cnaales Type: BLOOD SPECIMENOrdering Facility: [facility] Address: [address] [place] [address] Result Comment: The Stateless Diabetes Association (ADA) provides guidance for cutoff values for fasting glucose and random glucose. The ADA defines fasting as no caloric intake for at least 8 hours. Fasting plasma glucose results between 100 to 125 mg/dL indicate increased risk for diabetes (prediabetes).Fasting plasma glucose results greater than or equal to 126 mg/dL meet the criteria for diagnosis of diabetes. In the absence of unequivocal hyperglycemia, results should be confirmed by repeat testing. In a patient with classic symptoms of hyperglycemia or hyperglycemic crisis, random plasma glucose results greater than or equal to 200 mg/dL meet the criteria for diagnosis of diabetes.Reference: Standards of Medical Care in Diabetes 2016, Stateless Diabetes Association. Diabetes Care. 2016.39(Suppl 1). Performed By: #### 2 4323-8 ####[facility] CRISTOFER ZENGROSIE [id number] [place] [address] [place] Potassium [Moles/Vol] 3.8 mmol/L Normal 3.7-5.1 [facility] Comment on above: Order Comment: Speci men Type: BLOOD SPECIMENOrdering Facility: [facility] Address: [address] [place] [address] Performed By: #### 2 4323-8 ####[facility] NAPLESROSIE [id number] [place] [address] [place] Protein [Mass/Vol] 6.5 g/dL Normal 6.3-8.0 [facility] Comment on above: Order Comment: Speci men Type: BLOOD SPECIMENOrdering Facility: [facility] Address: [address] [place] [address] Performed By: #### 2 4323-8 ####[facility]PITALСЕРГЕЙA [id number] [place] [address] [place] Sodium [Moles/Vol] 138 mmol/L Normal 136-144 [facility] Comment on above: Order Comment: Speci men Type: BLOOD SPECIMENOrdering Facility: [facility] Address: [address] [place] [address] Performed By: #### 2 4323-8 ####[facility] NAPLESSHAINALISolitario [id number] [place] [address] [place] Urea nitrogen [Mass/Vol] 21 mg/dL Normal 7-21 [facility] Comment on above: Order Comment: Speci men Type: BLOOD SPECIMENOrdering Facility: [facility] Address: [address] [place] [address] Performed By: #### 2 4323-8 ####[facility] MILLTOWNCLIA [id number] [place] [address] [place] CNPNon 02-17-2024 CNPN Normal [facility] CBC W Auto Differential pane l (Bld)on 02-04-2024 Basophils (Bld) [#/Vol] 0.17 10*3/uL High <0.11 [facility] Comment on above: Order Comment: Speci men Type: BLOOD SPECIMENOrdering Facility: [facility] Address: [address] [place] [address] Performed By: #### 5 7021-8 ####[facility] MILLWNCLIA [id number] [place] [address] [place] Basophils/100 WBC (Bld) 2.2 % Normal [facility] Comment on above: Order Comment: Speci men Type: BLOOD SPECIMENOrdering Facility: [facility] Address: [address] [place] [address] Performed By: #### 5 7021-8 ####[facility] MILLWNCLIA [id number] [place] [address] [place] Differential cell count method Nom (Bld) Auto Normal [facility] Comment on above: Order Comment: Speci men Type: BLOOD SPECIMENOrdering Facility: [facility] Address: [address] [place] [address] Performed By: #### 5 7021-8 ####[facility] MILLTOWNCLIA [id number] [place] [address] [place] Eosinophils (Bld) [#/Vol] 0.15 10*3/uL Normal <0.46 [facility] Comment on above: Order Comment: Speci men Type: BLOOD SPECIMENOrdering Facility: [facility] Address: [address] [place] [address] Performed By: #### 5 7021-8 ####[facility] MILLTOWNCLIA [id number] [place] [address] [place] Eosinophils/100 WBC (Bld) 2.0 % Normal [facility] Comment on above: Order Comment: Speci men Type: BLOOD SPECIMENOrdering Facility: [facility] Address: [address] [place] [address] Performed By: #### 5 7021-8 ####[facility] NAPLESROSIE [id number] [place] [address] [place] Erythrocyte distribution width (RBC) [Ratio] 14.3 % Normal 11.5-15.0 [facility] Comment on above: Order Comment: Speci men Type: BLOOD SPECIMENOrdering Facility: [facility] Address: [address] [place] [address] Performed By: #### 5 7021-8 ####[facility] NAPLESROSIE [id number] [place] [address] [place] Hematocrit (Bld) [Volume fraction] 37.4 % Normal 36.0-46.0 [facility] Comment on above: Order Comment: Speci men Type: BLOOD SPECIMENOrdering Facility: [facility] Address: [address] [place] [address] Performed By: #### 5 7021-8 ####[facility] NAPLESROSIE [id number] [place] [address] [place] Hemoglobin (Bld) [Mass/Vol] 12.3 g/dL Normal 11.5-15.5 [facility] Comment on above: Order Comment: Speci men Type: BLOOD SPECIMENOrdering Facility: [facility] Address: [address] [place] [address] Performed By: #### 5 7021-8 ####[facility] NAPLESNCLIA [id number] [place] [address] [place] Immature granulocytes (Bld) [#/Vol] 0.03 10*3/uL Normal <0.10 [facility] Comment on above: Order Comment: Speci men Type: BLOOD SPECIMENOrdering Facility: [facility] Address: [address] [place] [address] Performed By: #### 5 7021-8 ####[facility] [id number] [place] [address] [place] Immature granulocytes/100 WBC (Bld) 0.4 % Normal [facility] Comment on above: Order Comment: Speci men Type: BLOOD SPECIMENOrdering Facility: [facility] Address: [address] [place] [address] Performed By: #### 5 7021-8 ####[facility] [id number] [place] [address] [place] Lymphocytes (Bld) [#/Vol] 1.66 10*3/uL Normal 1.00-4.00 [facility] Comment on above: Order Comment: Speci men Type: BLOOD SPECIMENOrdering Facility: [facility] Address: [address] [place] [address] Performed By: #### 5 7021-8 ####[facility] [id number] [place] [address] [place] Lymphocytes/100 WBC (Bld) 21.8 % Normal [facility] Comment on above: Order Comment: Speci men Type: BLOOD SPECIMENOrdering Facility: [facility] Address: [address] [place] [address] Performed By: #### 5 7021-8 ####[facility] [id number] [place] [address] [place] MCH (RBC) [Entitic mass] 30.8 pg Normal 26.0-34.0 [facility] Comment on above: Order Comment: Speci men Type: BLOOD SPECIMENOrdering Facility: [facility] Address: [address] [place], [place] [address] Performed By: #### 5 7021-8 ####[facility] NAPLESNCLIA [id number] [place] [address] [place] MCHC (RBC) [Mass/Vol] 32.9 g/dL Normal 30.5-36.0 [facility] Comment on above: Order Comment: Speci men Type: BLOOD SPECIMENOrdering Facility: [facility] Address: [address] [place] [address] Performed By: #### 5 7021-8 ####[facility] NAPLESNCLIA [id number] [place] [address] [place] MCV (RBC) [Entitic vol] 93.7 fL Normal 80.0-100.0 [facility] Comment on above: Order Comment: Speci men Type: BLOOD SPECIMENOrdering Facility: [facility] Address: [address] [place] [address] Performed By: #### 5 7021-8 ####[facility] NAPLESNCLIA [id number] [place] [address] [place] Monocytes (Bld) [#/Vol] 1.16 10*3/uL High <0.87 [facility] Comment on above: Order Comment: Speci men Type: BLOOD SPECIMENOrdering Facility: [facility] Address: [address] [place] [address] Performed By: #### 5 7021-8 ####[facility] NAPLESNCLIA [id number] [place] [address] [place] Monocytes/100 WBC (Bld) 15.2 % Normal [facility] Comment on above: Order Comment: Speci men Type: BLOOD SPECIMENOrdering Facility: [facility] Address: [address] [place] [address] Performed By: #### 5 7021-8 ####[facility] NAPLESNCLIA [id number] [place] [address] [place] Neutrophils (Bld) [#/Vol] 4.45 10*3/uL Normal 1.45-7.50 [facility] Comment on above: Order Comment: Speci men Type: BLOOD SPECIMENOrdering Facility: [facility] Address: [address] [place] [address] Performed By: #### 5 7021-8 ####[facility]ENTERWNCLIA [id number] [place] [address] [place] Neutrophils/100 WBC (Bld) 58.4 % Normal [facility] Comment on above: Order Comment: Speci men Type: BLOOD SPECIMENOrdering Facility: [facility] Address: [address] [place] [address] Performed By: #### 5 7021-8 ####[facility]IT[facility] [id number] [place] [address] [place] Nucleated RBC (Bld) [#/Vol] 10*3/uL Normal <0.01 [facility] Comment on above: Order Comment: Speci men Type: BLOOD SPECIMENOrdering Facility: [facility] Address: [address] [place] [address] Performed By: #### 5 7021-8 ####[facility]IT[facility] [id number] [place] [address] [place] Nucleated RBC/100 WBC (Bld) [Ratio] 0.0 /100 WBC Normal [facility] Comment on above: Order Comment: Speci men Type: BLOOD SPECIMENOrdering Facility: [facility] Address: [address] [place] [address] Performed By: #### 5 7021-8 ####[facility] NAPLESNCLIA [id number] [place] [address] [place] Platelet mean volume (Bld) [Entitic vol] 10.2 fL Normal 9.0-12.7 [facility] Comment on above: Order Comment: Speci men Type: BLOOD SPECIMENOrdering Facility: [facility] Address: [address] [place] [address] Performed By: #### 5 7021-8 ####[facility] VERONICAWNCLIA [id number] [place] [address] [place] Platelets (Bld) [#/Vol] 317 10*3/uL Normal 150-400 [facility] Comment on above: Order Comment: Speci men Type: BLOOD SPECIMENOrdering Facility: [facility] Address: [address] [place] [address] Performed By: #### 5 7021-8 ####[facility] NAPLESNCLIA [id number] [place] [address] [place] RBC (Bld) [#/Vol] 3.99 10*6/uL Normal 3.90-5.20 [facility] Comment on above: Order Comment: Speci men Type: BLOOD SPECIMENOrdering Facility: [facility] Address: [address] [place] [address] Performed By: #### 5 7021-8 ####[facility] NAPLESNCLIA [id number] [place] [address] [place] WBC (Bld) [#/Vol] 7.62 10*3/uL Normal 3.70-11.00 [facility] Comment on above: Order Comment: Speci men Type: BLOOD SPECIMENOrdering Facility: [facility] Address: [address] [place] [address] Performed By: #### 5 7021-8 ####[facility] NAPLESNCLIA [id number] [place] [address] [place] Comprehensive metabolic 2000 panelon 02-04-2024 Albumin [Mass/Vol] 4.3 g/dL Normal 3.9-4.9 [facility] Comment on above: Order Comment: Speci men Type: BLOOD SPECIMENOrdering Facility: [facility] Address: [address] [place] [address] Performed By: #### 2 4323-8 ####[facility] MILLTOWNCLIA [id number] [place] [address] [place] ALP [Catalytic activity/Vol] 94 U/L Normal 34-123 [facility] Comment on above: Order Comment: Speci men Type: BLOOD SPECIMENOrdering Facility: [facility] Address: [address] [place] [address] Performed By: #### 2 4323-8 ####[facility] MILLTOWNCLIA [id number] [place] [address] [place] ALT [Catalytic activity/Vol] 15 U/L Normal 7-38 [facility] Comment on above: Order Comment: Speci men Type: BLOOD SPECIMENOrdering Facility: [facility] Address: [address] [place] [address] Performed By: #### 2 4323-8 ####[facility] MILLTOWNCLIA [id number] [place] [address] [place] Anion gap [Moles/Vol] 10 mmol/L Normal 8-15 [facility] Comment on above: Order Comment: Speci men Type: BLOOD SPECIMENOrdering Facility: [facility] Address: [address] [place] [address] Performed By: #### 2 4323-8 ####[facility] MILLTOWNCLIA [id number] [place] [address] [place] AST [Catalytic activity/Vol] 20 U/L Normal 13-35 [facility] Comment on above: Order Comment: Speci men Type: BLOOD SPECIMENOrdering Facility: [facility] Address: [address] [place] [address] Performed By: #### 2 4323-8 ####[facility] MILLTOWNCLIA [id number] [place] [address] [place] Bilirubin [Mass/Vol] 0.2 mg/dL Normal 0.2-1.3 [facility] Comment on above: Order Comment: Speci men Type: BLOOD SPECIMENOrdering Facility: [facility] Address: [address] [place] [address] Performed By: #### 2 4323-8 ####[facility] MILLTOWNCLIA [id number] [place] [address] [place] Calcium [Mass/Vol] 9.2 mg/dL Normal 8.5-10.2 [facility] Comment on above: Order Comment: Speci men Type: BLOOD SPECIMENOrdering Facility: [facility] Address: [address] [place] [address] Performed By: #### 2 4323-8 ####[facility] MILLWNCLIA [id number] [place] [address] [place] Chloride [Moles/Vol] 100 mmol/L Normal 98-107 [facility] Comment on above: Order Comment: Speci men Type: BLOOD SPECIMENOrdering Facility: [facility] Address: [address] [place] [address] Performed By: #### 2 4323-8 ####[facility] MILLTOWNCLIA [id number] [place] [address] [place] CO2 [Moles/Vol] 26 mmol/L Normal 22-30 [facility] Comment on above: Order Comment: Speci men Type: BLOOD SPECIMENOrdering Facility: [facility] Address: [address] [place] [address] Performed By: #### 2 4323-8 ####[facility] MILLTOWNCLIA [id number] [place] [address] [place] Creatinine [Mass/Vol] 1.06 mg/dL High 0.58-0.96 [facility] Comment on above: Order Comment: Kristin canales Type: BLOOD SPECIMENOrdering Facility: [facility] Address: [address] [place] [address] Performed By: #### 2 4323-8 ####[facility] [id number] [place] [address] [place] Creatinine and Glomerular filtration rate.predicted panel (S/P/Bld) 54 mL/min/1.73m??? Low >=60 [facility] Comment on above: Order Comment: Kristin canales Type: BLOOD SPECIMENOrdering Facility: [facility] Address: [address] [place] [address] Result Comment: Norma mated Glomerular Filtration Rate (eGFR) is calculated using the 2020 CKD-EPI creatinine equation. This equation utilizes serum creatinine, sex, and age as parameters. The creatinine assay has traceable calibration to isotope dilution-mass spectrometry. Refer to KDIGO guidelines for clinical interpretation. In patients with unstable renal function, e.g. those with acute kidney injury, the eGFR may not accurately reflect actual GFR. Performed By: #### 2 4323-8 ####[facility] [id number] [place] [address] [place] Glucose [Mass/Vol] 74 mg/dL Normal 74-99 [facility] Comment on above: Order Comment: Kristin canales Type: BLOOD SPECIMENOrdering Facility: [facility] Address: [address] [place] [address] Result Comment: The Stateless Diabetes Association (ADA) provides guidance for cutoff values for fasting glucose and random glucose. The ADA defines fasting as no caloric intake for at least 8 hours. Fasting plasma glucose results between 100 to 125 mg/dL indicate increased risk for diabetes (prediabetes).Fasting plasma glucose results greater than or equal to 126 mg/dL meet the criteria for diagnosis of diabetes. In the absence of unequivocal hyperglycemia, results should be confirmed by repeat testing. In a patient with classic symptoms of hyperglycemia or hyperglycemic crisis, random plasma glucose results greater than or equal to 200 mg/dL meet the criteria for diagnosis of diabetes.Reference: Standards of Medical Care in Diabetes 2016, Stateless Diabetes Association. Diabetes Care. 2016.39(Suppl 1). Performed By: #### 2 4323-8 ####[facility] KHADRASHAINALIA [id number] [place] [address] [place] Potassium [Moles/Vol] 3.9 mmol/L Normal 3.7-5.1 [facility] Comment on above: Order Comment: Speci men Type: BLOOD SPECIMENOrdering Facility: [facility] Address: [address] [place] [address] Performed By: #### 2 4323-8 ####[facility] NAPLESSHAINALIA [id number] [place] [address] [place] Protein [Mass/Vol] 7.0 g/dL Normal 6.3-8.0 [facility] Comment on above: Order Comment: Speci men Type: BLOOD SPECIMENOrdering Facility: [facility] Address: [address] [place] [address] Performed By: #### 2 4323-8 ####[facility] NAPLESNCLIA [id number] [place] [address] [place] Sodium [Moles/Vol] 136 mmol/L Normal 136-144 [facility] Comment on above: Order Comment: Speci men Type: BLOOD SPECIMENOrdering Facility: [facility] Address: [address] [place] [address] Performed By: #### 2 4323-8 ####[facility] CENTERWSHAINALIA [id number] [place] [address] [place] Urea nitrogen [Mass/Vol] 24 mg/dL High 7-21 [facility] Comment on above: Order Comment: Speci men Type: BLOOD SPECIMENOrdering Facility: [facility] Address: [address] [place] [address] Performed By: #### 2 4323-8 ####[facility] NAPLESSHAINALIA [id number] [place] [address] [place] CNPNon 01-21-2024 CNPN Normal [facility] CNPNon 01-10-2024 CNPN Normal [facility] CBC W Auto Differential pane l (Bld)on 12-31-2023 Basophils (Bld) [#/Vol] 0.17 10*3/uL High <0.11 [facility] Comment on above: Order Comment: Speci men Type: BLOOD SPECIMENOrdering Facility: [facility] Address: [address] [place] [address] Performed By: #### 5 7021-8 ####[facility] [id number] [place] [address] [place] Basophils/100 WBC (Bld) 2.2 % Normal [facility] Comment on above: Order Comment: Speci men Type: BLOOD SPECIMENOrdering Facility: [facility] Address: [address] [place] [address] Performed By: #### 5 7021-8 ####[facility] [id number] [place] [address] [place] Differential cell count method Nom (Bld) Auto Normal [facility] Comment on above: Order Comment: Speci men Type: BLOOD SPECIMENOrdering Facility: [facility] Address: [address] [place] [address] Performed By: #### 5 7021-8 ####[facility] MILLWNCLIA [id number] [place] [address] [place] Eosinophils (Bld) [#/Vol] 0.27 10*3/uL Normal <0.46 [facility] Comment on above: Order Comment: Speci men Type: BLOOD SPECIMENOrdering Facility: [facility] Address: [address] [place] [address] Performed By: #### 5 7021-8 ####[facility] MILLWNCLIA [id number] [place] [address] [place] Eosinophils/100 WBC (Bld) 3.4 % Normal [facility] Comment on above: Order Comment: Speci men Type: BLOOD SPECIMENOrdering Facility: [facility] Address: [address] [place] [address] Performed By: #### 5 7021-8 ####[facility] NAPLESROSIE [id number] [place] [address] [place] Erythrocyte distribution width (RBC) [Ratio] 14.6 % Normal 11.5-15.0 [facility] Comment on above: Order Comment: Speci men Type: BLOOD SPECIMENOrdering Facility: [facility] Address: [address] [place] [address] Performed By: #### 5 7021-8 ####[facility] NAPLESROSIE [id number] [place] [address] [place] Hematocrit (Bld) [Volume fraction] 34.9 % Low 36.0-46.0 [facility] Comment on above: Order Comment: Speci men Type: BLOOD SPECIMENOrdering Facility: [facility] Address: [address] [place] [address] Performed By: #### 5 7021-8 ####[facility]APLESROSIE [id number] [place] [address] [place] Hemoglobin (Bld) [Mass/Vol] 11.3 g/dL Low 11.5-15.5 [facility] Comment on above: Order Comment: Speci men Type: BLOOD SPECIMENOrdering Facility: [facility] Address: [address] [place] [address] Performed By: #### 5 7021-8 ####[facility] NAPLESNCLI [id number] [place] [address] [place] Immature granulocytes (Bld) [#/Vol] 0.03 10*3/uL Normal <0.10 [facility] Comment on above: Order Comment: Speci men Type: BLOOD SPECIMENOrdering Facility: [facility] Address: [address] [place] [address] Performed By: #### 5 7021-8 ####[facility] [id number] [place] [address] [place] Immature granulocytes/100 WBC (Bld) 0.4 % Normal [facility] Comment on above: Order Comment: Speci men Type: BLOOD SPECIMENOrdering Facility: [facility] Address: [address] [place] [address] Performed By: #### 5 7021-8 ####[facility] [id number] [place] [address] [place] Lymphocytes (Bld) [#/Vol] 1.52 10*3/uL Normal 1.00-4.00 [facility] Comment on above: Order Comment: Speci men Type: BLOOD SPECIMENOrdering Facility: [facility] Address: [address] [place] [address] Performed By: #### 5 7021-8 ####[facility] [id number] [place] [address] [place] Lymphocytes/100 WBC (Bld) 19.4 % Normal [facility] Comment on above: Order Comment: Speci men Type: BLOOD SPECIMENOrdering Facility: [facility] Address: [address] [place] [address] Performed By: #### 5 7021-8 ####[facility] [id number] [place] [address] [place] MCH (RBC) [Entitic mass] 30.3 pg Normal 26.0-34.0 [facility] Comment on above: Order Comment: Speci men Type: BLOOD SPECIMENOrdering Facility: [facility] Address: [address] [place] [address] Performed By: #### 5 7021-8 ####[facility] VERONICAWNCLIA [id number] [place] [address] [place] MCHC (RBC) [Mass/Vol] 32.4 g/dL Normal 30.5-36.0 [facility] Comment on above: Order Comment: Speci men Type: BLOOD SPECIMENOrdering Facility: [facility] Address: [address] [place] [address] Performed By: #### 5 7021-8 ####[facility] NAPLESNCLIA [id number] [place] [address] [place] MCV (RBC) [Entitic vol] 93.6 fL Normal 80.0-100.0 [facility] Comment on above: Order Comment: Speci men Type: BLOOD SPECIMENOrdering Facility: [facility] Address: [address] [place] [address] Performed By: #### 5 7021-8 ####[facility] [id number] [place] [address] [place] Monocytes (Bld) [#/Vol] 1.10 10*3/uL High <0.87 [facility] Comment on above: Order Comment: Speci men Type: BLOOD SPECIMENOrdering Facility: [facility] Address: [address] [place] [address] Performed By: #### 5 7021-8 ####[facility] [id number] [place] [address] [place] Monocytes/100 WBC (Bld) 14.0 % Normal [facility] Comment on above: Order Comment: Speci men Type: BLOOD SPECIMENOrdering Facility: [facility] Address: [address] [place] [address] Performed By: #### 5 7021-8 ####[facility]IT[facility] [id number] [place] [address] [place] Neutrophils (Bld) [#/Vol] 4.74 10*3/uL Normal 1.45-7.50 [facility] Comment on above: Order Comment: Speci men Type: BLOOD SPECIMENOrdering Facility: [facility] Address: [address] [place] [address] Performed By: #### 5 7021-8 ####[facility] [id number] [place] [address] [place] Neutrophils/100 WBC (Bld) 60.6 % Normal [facility] Comment on above: Order Comment: Speci men Type: BLOOD SPECIMENOrdering Facility: [facility] Address: [address] [place] [address] Performed By: #### 5 7021-8 ####[facility] [id number] [place] [address] [place] Nucleated RBC (Bld) [#/Vol] 10*3/uL Normal <0.01 [facility] Comment on above: Order Comment: Speci men Type: BLOOD SPECIMENOrdering Facility: [facility] Address: [address] [place] [address] Performed By: #### 5 7021-8 ####[facility] [id number] [place] [address] [place] Nucleated RBC/100 WBC (Bld) [Ratio] 0.0 /100 WBC Normal [facility] Comment on above: Order Comment: Speci men Type: BLOOD SPECIMENOrdering Facility: [facility] Address: [address] [place] [address] Performed By: #### 5 7021-8 ####[facility] NAPLESNCLI [id number] [place] [address] [place] Platelet mean volume (Bld) [Entitic vol] 10.0 fL Normal 9.0-12.7 [facility] Comment on above: Order Comment: Speci men Type: BLOOD SPECIMENOrdering Facility: [facility] Address: [address] [place] [address] Performed By: #### 5 7021-8 ####[facility] KHADRANCERVIN [id number] [place] [address] [place] Platelets (Bld) [#/Vol] 322 10*3/uL Normal 150-400 [facility] Comment on above: Order Comment: Speci men Type: BLOOD SPECIMENOrdering Facility: [facility] Address: [address] [place] [address] Performed By: #### 5 7021-8 ####[facility] VERONICAHAGER CITYNCLIA [id number] [place] [address] [place] RBC (Bld) [#/Vol] 3.73 10*6/uL Low 3.90-5.20 [facility] Comment on above: Order Comment: Speci men Type: BLOOD SPECIMENOrdering Facility: [facility] Address: [address] [place] [address] Performed By: #### 5 7021-8 ####[facility] NAPLESNCLIA [id number] [place] [address] [place] WBC (Bld) [#/Vol] 7.83 10*3/uL Normal 3.70-11.00 [facility] Comment on above: Order Comment: Speci men Type: BLOOD SPECIMENOrdering Facility: [facility] Address: [address] [place] [address] Performed By: #### 5 7021-8 ####[facility] NAPLESNCLIA [id number] [place] [address] [place] CNOVSPon 12-31-2023 CNOVSP Normal [facility] Comprehensive metabolic 2000 panelon 12-31-2023 Albumin [Mass/Vol] 4.1 g/dL Normal 3.9-4.9 [facility] Comment on above: Order Comment: Speci men Type: BLOOD SPECIMENOrdering Facility: [facility] Address: [address] [place] [address] Performed By: #### 2 4323-8 ####[facility] VERONICAWNCLIA [id number] [place] [address] [place] ALP [Catalytic activity/Vol] 80 U/L Normal 34-123 [facility] Comment on above: Order Comment: Speci men Type: BLOOD SPECIMENOrdering Facility: [facility] Address: [address] [place] [address] Performed By: #### 2 4323-8 ####[facility] CENTERWNCLIA [id number] [place] [address] [place] ALT [Catalytic activity/Vol] 12 U/L Normal 7-38 [facility] Comment on above: Order Comment: Speci men Type: BLOOD SPECIMENOrdering Facility: [facility] Address: [address] [place] [address] Performed By: #### 2 4323-8 ####[facility]PIT[facility] [id number] [place] [address] [place] Anion gap [Moles/Vol] 12 mmol/L Normal 8-15 [facility] Comment on above: Order Comment: Speci men Type: BLOOD SPECIMENOrdering Facility: [facility] Address: [address] [place] [address] Performed By: #### 2 4323-8 ####[facility] MILLTOWNCLIA [id number] [place] [address] [place] AST [Catalytic activity/Vol] 17 U/L Normal 13-35 [facility] Comment on above: Order Comment: Speci men Type: BLOOD SPECIMENOrdering Facility: [facility] Address: [address] [place] [address] Performed By: #### 2 4323-8 ####[facility] MILLTOWNCLIA [id number] [place] [address] [place] Bilirubin [Mass/Vol] 0.3 mg/dL Normal 0.2-1.3 [facility] Comment on above: Order Comment: Speci men Type: BLOOD SPECIMENOrdering Facility: [facility] Address: [address] [place] [address] Performed By: #### 2 4323-8 ####[facility] MILLWNCLIA [id number] [place] [address] [place] Calcium [Mass/Vol] 9.2 mg/dL Normal 8.5-10.2 [facility] Comment on above: Order Comment: Speci men Type: BLOOD SPECIMENOrdering Facility: [facility] Address: [address] [place] [address] Performed By: #### 2 4323-8 ####[facility] NAPLESNCLIA [id number] [place] [address] [place] Chloride [Moles/Vol] 99 mmol/L Normal 98-107 [facility] Comment on above: Order Comment: Speci men Type: BLOOD SPECIMENOrdering Facility: [facility] Address: [address] [place] [address] Performed By: #### 2 4323-8 ####[facility] MILLWNCLIA [id number] [place] [address] [place] CO2 [Moles/Vol] 23 mmol/L Normal 22-30 [facility] Comment on above: Order Comment: Speci men Type: BLOOD SPECIMENOrdering Facility: [facility] Address: [address] [place] [address] Performed By: #### 2 4323-8 ####[facility] [facility]CL[place] [id number] [place] [address] [place] Creatinine [Mass/Vol] 1.04 mg/dL High 0.58-0.96 [facility] Comment on above: Order Comment: Kristin canales Type: BLOOD SPECIMENOrdering Facility: [facility] Address: [address] [place] [address] Performed By: #### 2 4323-8 ####[facility] [id number] [place] [address] [place] Creatinine and Glomerular filtration rate.predicted panel (S/P/Bld) 55 mL/min/1.73m??? Low >=60 [facility] Comment on above: Order Comment: Kristin canales Type: BLOOD SPECIMENOrdering Facility: [facility] Address: [address] [place] [address] Result Comment: Norma mated Glomerular Filtration Rate (eGFR) is calculated using the 2020 CKD-EPI creatinine equation. This equation utilizes serum creatinine, sex, and age as parameters. The creatinine assay has traceable calibration to isotope dilution-mass spectrometry. Refer to KDIGO guidelines for clinical interpretation. In patients with unstable renal function, e.g. those with acute kidney injury, the eGFR may not accurately reflect actual GFR. Performed By: #### 2 4323-8 ####[facility] [id number] [place] [address] [place] Glucose [Mass/Vol] 86 mg/dL Normal 74-99 [facility] Comment on above: Order Comment: Kristin canales Type: BLOOD SPECIMENOrdering Facility: [facility] Address: [address] [place] [address] Result Comment: The Stateless Diabetes Association (ADA) provides guidance for cutoff values for fasting glucose and random glucose. The ADA defines fasting as no caloric intake for at least 8 hours. Fasting plasma glucose results between 100 to 125 mg/dL indicate increased risk for diabetes (prediabetes).Fasting plasma glucose results greater than or equal to 126 mg/dL meet the criteria for diagnosis of diabetes. In the absence of unequivocal hyperglycemia, results should be confirmed by repeat testing. In a patient with classic symptoms of hyperglycemia or hyperglycemic crisis, random plasma glucose results greater than or equal to 200 mg/dL meet the criteria for diagnosis of diabetes.Reference: Standards of Medical Care in Diabetes 2016, Stateless Diabetes Association. Diabetes Care. 2016.39(Suppl 1). Performed By: #### 2 4323-8 ####[facility] LIBRADOEVRIN [id number] [place] [address] [place] Potassium [Moles/Vol] 4.1 mmol/L Normal 3.7-5.1 [facility] Comment on above: Order Comment: Speci men Type: BLOOD SPECIMENOrdering Facility: [facility] Address: [address] [place] [address] Performed By: #### 2 4323-8 ####[facility] [id number] [place] [address] [place] Protein [Mass/Vol] 6.7 g/dL Normal 6.3-8.0 [facility] Comment on above: Order Comment: Speci men Type: BLOOD SPECIMENOrdering Facility: [facility] Address: [address] [place] [address] Performed By: #### 2 4323-8 ####[facility] [id number] [place] [address] [place] Sodium [Moles/Vol] 134 mmol/L Low 136-144 [facility] Comment on above: Order Comment: Speci men Type: BLOOD SPECIMENOrdering Facility: [facility] Address: [address] [place] [address] Performed By: #### 2 4323-8 ####[facility] [id number] [place] [address] [place] Urea nitrogen [Mass/Vol] 24 mg/dL High 7-21 [facility] Comment on above: Order Comment: Speci men Type: BLOOD SPECIMENOrdering Facility: [facility] Address: [address] [place] [address] Performed By: #### 2 4323-8 ####[facility] [id number] [place] [address] [place] UA DIP, URINE (POC)on 2023 BILIRUBIN UA (POCT) Negative Negative [facility] CLARITY UA (POCT) Clear [facility] COLOR UA (POCT) Yellow [facility] GLUCOSE UA (POCT) Negative Negative mg/dL [facility] Hemoglobin Ql (U) Trace-intact Abnormal Negative [facility] Interpretation and review of laboratory results Abnormal [facility] KETONE UA (POCT) Negative Negative mg/dL [facility] LEUKOCYTES UA (POCT) Moderate Abnormal Negative [facility] NITRITE UA (POCT) Negative Negative [facility] PH UA (POCT) 5.5 4.5 - 8.0 [facility] Protein Ql (U) Negative Negative mg/dL [facility] SPECIFIC GRAVITY UA (POCT) 1.010 1.005 - 1.030 [facility] UROBILINOGEN UA (POCT) 0.2 Normal E.U./dL [facility] Location:[address], [id number] [place] [address] POINT OF CARE [facility] XR Finger - left AP and Late ral and obliqueon 10-10-2023 IMPRESSION: Mild DIP joint osteoarthritis. No acute bony abnormality. Still Operator Batch Or Continuous: FELIX Transcribe Date/Time: Oct 10 2023 7:45P Dictated by : JAIR PAUL MD This examination was interpreted and the report reviewed and electronically signed by: JAIR PAUL MD on Oct 10 2023 7:45PM [facility] DIVISION OF RADIOLOGY * * *Final Report* * * DATE OF EXAM: Oct 07 2023 11:33AM WOX [id number] - XR DIGIT 3V FRONTAL/LAT/OBL LT / PROCEDURE REASON: Finger pain, left * * * * Physician Interpretation * * * * EXAMINATION / TECHNIQUE: XR DIGIT 3V FRONTAL/LAT/OBL LT HISTORY: Pt. states Lt proximal pinky redness and swelling. Finger pain, left COMPARISON: None. RESULT: No acute fracture or osseous malalignment. Mild DIP joint osteoarthritis. No osseous erosion or periostitis. DIVISION OF RADIOLOGY Provider, Tabitha Spear - 10/10/2023 * * *Final Report* * * DATE OF EXAM: Oct 07 2023 11:33AM WOX [id number] - XR DIGIT 3V FRONTAL/LAT/OBL LT / PROCEDURE REASON: Finger pain, left * * * * Physician Interpretation * * * * EXAMINATION / TECHNIQUE: XR DIGIT 3V FRONTAL/LAT/OBL LT HISTORY: Pt. states Lt proximal pinky redness and swelling. Finger pain, left COMPARISON: None. RESULT: No acute fracture or osseous malalignment. Mild DIP joint osteoarthritis. No osseous erosion or periostitis. IMPRESSION IMPRESSION: Mild DIP joint osteoarthritis. No acute bony abnormality. Still Operator Batch Or Continuous: FELIX Transcribe Date/Time: Oct 10 2023 7:45P Dictated by : JAIR PAUL MD This examination was interpreted and the report reviewed and electronically signed by: JAIR PAUL MD on Oct 10 2023 7:45PM EST [facility] XR Finger - left AP and Late ral and obliqueOrdered By: Ccf Provider on 10-10-2023 [facility] C-REACTIVE PROTEINon 024 CRP [Mass/Vol] mg/dL NINF - 0.9 mg/dL [facility] ESR Westergren method (Bld) [Velocity]on 10-07-2023 ESR (Bld) [Velocity] 30 mm/h High [facility] Interpretation and review of laboratory results Abnormal [facility] No Panel Informationon 10-06 Interpretation and review of laboratory results Normal [facility] URIC ACIDon 10-07-2023 Urate [Mass/Vol] 5.5 mg/dL 2.5 - 6.6 mg/dL [facility] XR Finger - left AP and Late ral and obliqueon 10-07-2023 Radiology Study observation (narrative) [facility] MR Brain WO contraston 08-13 IMPRESSION: No evidence of an acute intracranial infarction. No evidence of vertebral basilar insufficiency. Age expected volume loss and microvascular ischemic changes. No significant volume loss noted in the temporal lobes or frontal lobes. No abnormal susceptibility artifact in the brain. Still Operator Batch Or Continuous: [facility] Transcribe Date/Time: Aug 14 2023 8:42A Dictated by : ESTEFANIA GARIBAY MD This examination was interpreted and the report reviewed and electronically signed by: ESTEFANIA GARIBAY MD on Aug 14 2023 8:44AM [facility] DIVISION OF RADIOLOGY * * *Final Report* * * DATE OF EXAM: Aug 14 2023 8:20AM [facility] 0294 - MRI BRAIN WO IVCON / PROCEDURE REASON: Transient cerebral ischemia, unspecified type * * * * Physician Interpretation * * * * EXAMINATION: MRI BRAIN WO IVCON CLINICAL HISTORY: Syncopal episode. Also memory complaints. TECHNIQUE: Routine noncontrast MRI protocol including diffusion images. MQ: MRBWO_2 COMPARISON: None. RESULT: Acute Change: There is no evidence of restricted diffusion to suggest an acute infarct. Hemorrhage: No evidence of prior parenchymal hemorrhage on the gradient echo images. Mass Lesion/ Mass Effect: No evidence of an intracranial mass or extra-axial fluid collection. No significant mass effect. Chronic Change: Scattered patchy areas of increased T2 and FLAIR signal are present in the supratentorial white matter which is a nonspecific finding but likely represents mild chronic microvascular ischemia. Parenchyma: No significant volume loss for age. The brain parenchyma is otherwise within normal limits of signal intensity and morphology. Ventricles: Normal caliber and morphology. Skull Base: Hypothalamic and pituitary region are grossly normal. Craniocervical junction is normal. No significant marrow replacement process. Vasculature: Major intracranial arterial structures, and dural venous sinuses show typical flow void, suggesting patency by spin echo criteria. Other: The visualized paranasal sinuses and mastoid air cells are clear. Postop changes of bilateral cataract surgery. The orbits and extracranial soft tissues are unremarkable. DIVISION OF RADIOLOGY Provider, [facility] - 08/14/2023 * * *Final Report* * * DATE OF EXAM: Aug 14 2023 8:20AM [facility] 0294 - MRI BRAIN WO IVCON / PROCEDURE REASON: Transient cerebral ischemia, unspecified type * * * * Physician Interpretation * * * * EXAMINATION: MRI BRAIN WO IVCON CLINICAL HISTORY: Syncopal episode. Also memory complaints. TECHNIQUE: Routine noncontrast MRI protocol including diffusion images. MQ: MRBWO_2 COMPARISON: None. RESULT: Acute Change: There is no evidence of restricted diffusion to suggest an acute infarct. Hemorrhage: No evidence of prior parenchymal hemorrhage on the gradient echo images. Mass Lesion/ Mass Effect: No evidence of an intracranial mass or extra-axial fluid collection. No significant mass effect. Chronic Change: Scattered patchy areas of increased T2 and FLAIR signal are present in the supratentorial white matter which is a nonspecific finding but likely represents mild chronic microvascular ischemia. Parenchyma: No significant volume loss for age. The brain parenchyma is otherwise within normal limits of signal intensity and morphology. Ventricles: Normal caliber and morphology. Skull Base: Hypothalamic and pituitary region are grossly normal. Craniocervical junction is normal. No significant marrow replacement process. Vasculature: Major intracranial arterial structures, and dural venous sinuses show typical flow void, suggesting patency by spin echo criteria. Other: The visualized paranasal sinuses and mastoid air cells are clear. Postop changes of bilateral cataract surgery. The orbits and extracranial soft tissues are unremarkable. IMPRESSION IMPRESSION: No evidence of an acute intracranial infarction. No evidence of vertebral basilar insufficiency. Age expected volume loss and microvascular ischemic changes. No significant volume loss noted in the temporal lobes or frontal lobes. No abnormal susceptibility artifact in the brain. Still Operator Batch Or Continuous: [facility] Transcribe Date/Time: Aug 14 2023 8:42A Dictated by : ESTEFANIA GARIBAY MD This examination was interpreted and the report reviewed and electronically signed by: ESTEFANIA GARIBAY MD on Aug 14 2023 8:44AM EST [facility] Radiology Study observation (narrative) [facility] MR Brain WO contrastOrdered By: Ccf Provider on 08-14-2023 [facility] COVID & INFLUENZA A/B & RSV NAAT, ROUTINEon 07-04-2023 FLUAV RNA CLARIBEL+probe Ql (Unsp spec) Not detected Not Detected [facility] FLUBV RNA CLARIBEL+probe Ql (Unsp spec) Not detected Not Detected [facility] Interpretation and review of laboratory results Normal [facility] RSV A RNA CLARIBEL+probe Ql (Unsp spec) Not detected Not Detected [facility] SARS-CoV-2 (COVID-19) RNA CLARIBEL+probe Ql (Resp) Not detected See comment [facility] Comment on above: The method used is R T-PCR or an equivalent NAAT method. Reference Range (the expected result in uninfected individuals): Not detected For upper respirator y tract samples, this test has been authorized by FDA under Emergenecy Use Authorization (EUA). For lower respiratory tract samples, this test was developed and its performance characteristics determined by [facility]'s [facility]). It has not been cleared or approved by the FDA. -[facility] is regulated under CLIA as qualified to perform high-complexity testing. This test is used for clinical purposes. It should not be regarded as investigational or for research. Test performed by [facility], [facility] [place], [facility] [place] [address]. [facility] UA DIP, URINE (POC)on 2023 BILIRUBIN UA (POCT) Negative Negative [facility] CLARITY UA (POCT) Clear [facility] COLOR UA (POCT) Yellow [facility] GLUCOSE UA (POCT) Negative Negative mg/dL [facility] Hemoglobin Ql (U) Trace-intact Abnormal Negative [facility] KETONE UA (POCT) Negative Negative mg/dL [facility] LEUKOCYTES UA (POCT) Trace Abnormal Negative [facility] NITRITE UA (POCT) Negative [facility] PH UA (POCT) 5.5 4.5 - 8.0 [facility] Protein Ql (U) Negative Negative mg/dL [facility] SPECIFIC GRAVITY UA (POCT) 1.010 1.005 - 1.030 [facility] UROBILINOGEN UA (POCT) 0.2 E.U./dL Normal E.U./dL [facility] UA DIP, URINE (POC)on 2022 BILIRUBIN UA (POCT) Negative Negative [facility] CLARITY UA (POCT) Clear [facility] COLOR UA (POCT) Yellow [facility] GLUCOSE UA (POCT) Negative Negative mg/dL [facility] HEMOGLOBIN/BLOOD UA (POCT) Trace-intact Abnormal Negative [facility] KETONE UA (POCT) Negative Negative mg/dL [facility] LEUKOCYTES UA (POCT) Moderate Abnormal Negative [facility] NITRITE UA (POCT) Negative Negative [facility] PH UA (POCT) 5.5 4.5 - 8.0 [facility] Protein Ql (U) Negative Negative mg/dL [facility] SPECIFIC GRAVITY UA (POCT) 1.015 1.005 - 1.030 [facility] UROBILINOGEN UA (POCT) 0.2 E.U./dL Normal E.U./dL [facility] CV VENOUS LEG LTon 3 CV VENOUS LEG LT [place] [address] Patient: MARCELO GONZALEZ Phone#: : 1945 Age: 76 Gender: F Pt. Type: Out Account: [id number] Location: 062 Ordering: [facility] Exam Date: 06/06/2022/13:20 Family Phys: Charge Code: [id number] Physician: [place] Order #: [id number] Dose#: PROCEDURE: VENOUS DOPPLER LT LEG COMPARISON: None. INDICATIONS: Swelling TECHNIQUE: Color duplex Doppler ultrasound evaluation analysis was performed in the usual manner. WHEEL BRAIDER: DYAN RISK FACTORS FOR VENOUS DISEASE: Recent surgery Knee replacement Other Swelling EXAMINATION: RIGHT +Present -Reduced o Absent LEFT SPONT PHASIC AUG REFLUX COMP SPONT PHASIC AUG REFLUX COMP + + + o + CFV + + + o + SFJ + FV (prox) + + + o + FV (mid) + FV (dist) + POP V + + + o + T/P TRUNK + + + o + PTV + + + o + PERONEAL V + + + o + GSV + GASTROC SOLEAL V WHEEL BRAIDER'S NOTES: Technically difficult study due to swelling. FINDINGS: Continued Report - Page 2 of 2 Patient: MARCELO GONZALEZ Phone#: : 1945 Age: 76 Gender: F Pt. Type: Out Account: [id number] Location: 062 Ordering: [facility] Exam Date: 06/06/2022/13:20 Family Phys: Charge Code: [id number] Physician: [place] Order #: [id number] Dose#: THROMBI: None visible. COMPRESSIBILITY: Normal. OTHER: Negative. CONCLUSION: 1. There is no evidence of superficial or deep vein thrombus. 2. Nonspecific prominent lymph nodes are present at the groin and thigh. Dictated by: Heaven Barrow MD on 06/06/2022 at 14:13 Approved by: Heaven Barrow MD on 06/06/2022 at 14:17 Normal [facility] HEP B SURFACE AG [CCL]on REFLEX HBSAGC? NO Normal [facility] Comment on above: Performed By: #### 2 62776 #### [facility],[address] [place] [address] Hepatitis B Surf. Ag Negative Normal Negative [facility] Comment on above: Result Comment: [place] [id number] [place] [address] Thomas Rawls III, M.D. [id number] Performed By: #### 2 39544 #### [place] [id number] HEPATITIS C AB IA W/CONFIRM [OLD]on 05-23-2022 REFLEX HCQPCR? NO Normal [facility] Comment on above: Performed By: #### 2 44325 #### [facility],[address] [place] [address] Hepatitis C Ab IA Negative Normal Negative [facility] Comment on above: Result Comment: The result suggests no evidence of active infection with Hepatitis C virus. Should recent infection be suspected, repeat testing may be considered 4-6 weeks after this draw. [facility] [employer] [facility] [place] [address] Thomas Rawls III, M.D. [id number] Performed By: #### 2 44698 #### [facility],[address] [place], [place] [id number] HIV 1/2 COMBO (AG/AB) [CCL]o n 05-23-2022 HIV 1/2 COMBO (AG/AB) [CCL] Normal [facility] Comment on above: Result Comment: _HIV 12 COMBO (AG/AB) [CCL]_ GO TO CPSI REPORTS AND ATTACHMENTS FOR SCANNED REPORT Performed By: #### 2 92486 #### [place] [id number] BMP with eGFRon 05-22-2022 AGE 76 years Normal [facility] Comment on above: Performed By: #### 2 21300 #### [facility],[address] [place] [address] Anion gap [Moles/Vol] 13 mmol/L Normal 10 - 20 [facility] Comment on above: Performed By: #### 2 42442 #### [facility],[address] [place] [address] 10115 BMP with eGFR Normal [facility] Comment on above: Result Comment: BASI C METABOLIC PANEL Performed By: #### 2 48832 #### [facility],[address] [place] [address] Calcium [Mass/Vol] 8.5 mg/dL Normal 8.5 - 10.1 [facility] Comment on above: Performed By: #### 2 67739 #### [facility],[address] [place], [place] [id number] Chloride [Moles/Vol] 102 mmol/L Normal 98 - 107 [facility] Comment on above: Performed By: #### 2 61968 #### [facility],[address] [place] [address] CO2 [Moles/Vol] 24.3 mmol/L Normal 21.0 - 32.0 [facility] Comment on above: Performed By: #### 2 07092 #### [facility],[address] [place] [address] Creatinine [Mass/Vol] 1.15 mg/dL High 0.55 - 1.02 [facility] Comment on above: Performed By: #### 2 76896 #### [facility],[address] [place] [address] eGFR 46 ML/MINUTE Low 60 - 999 [facility] Comment on above: Performed By: #### 2 70238 #### [facility],[address] [place] [address]5976 eGFR(AA) 56 ML/MINUTE Low 60 - 999 [facility] Comment on above: Result Comment: ACCO RDING TO THE NATIONAL KIDNEY DISEASE EDUCATION PROGRAM(NKDE), A NORMAL eGFR IS A VALUE GREATER THAN OR EQUAL TO 60 ML/MIN/1.73 SQ METERS. CHRONIC KIDNEY DISEASE: <60mL/MIN/1.73 SQ METERS KIDNEY FAILURE: <15mL/MIN/1.73 SQ METERS THIS TEST SHOULD ONLY BE USED FOR PATIENTS 18 YEARS OF AGE AND OLDER. Performed By: #### 2 98327 #### [facility],[address] [place] [address] Glucose [Mass/Vol] 165 mg/dL High 74 - 106 [facility] Comment on above: Performed By: #### 2 52819 #### [facility],[address] [place] [address] Potassium [Moles/Vol] 4.2 mmol/L Normal 3.5 - 5.1 [facility] Comment on above: Performed By: #### 2 68601 #### [facility],[address] [place] [address] Sodium [Moles/Vol] 135 mmol/L Low 136 - 145 [facility] Comment on above: Performed By: #### 2 01048 #### [facility],[address] [place] [address]70 Urea nitrogen [Mass/Vol] 14 mg/dL Normal 7 - 18 [facility] Comment on above: Performed By: #### 2 06028 #### [facility],[address] [place] [address]72 CBC + DIFFon 05-22-2022 Baso # 0.10 x10EE3/UL Normal 0.00 - 0.10 [facility] Comment on above: Performed By: #### 2 60270 #### [facility],[address] [place] [address] 947[address] Basophils/100 WBC (Bld) 0.3 % Normal 0.0 - 2.0 [facility] Comment on above: Performed By: #### 2 11721 #### [facility],[address] [place] [address] CBC + DIFF Normal [facility] Comment on above: Result Comment: CBC- COMPLETE BLOOD COUNT Performed By: #### 2 97430 #### [facility],[address] [place] [address] EO # 0.00 x10EE3/UL Normal 0.00 - 0.50 [facility] Comment on above: Performed By: #### 2 07314 #### [facility],[address] [place] [address] Eosinophils/100 WBC (Bld) 0.0 % Normal 0.0 - 7.0 [facility] Comment on above: Performed By: #### 2 00736 #### [facility],[address] [place] [address] Erythrocyte distribution width (RBC) [Ratio] 13.8 % Normal 12.0 - 15.6 [facility] Comment on above: Performed By: #### 2 58587 #### [facility],[address] [place] [address] Hematocrit (Bld) [Volume fraction] 31.9 % Low 34.0 - 46.0 [facility] Comment on above: Performed By: #### 2 50706 #### [facility],[address] [place] [address] Hemoglobin (Bld) [Mass/Vol] 10.6 g/dL Low 12.0 - 16.0 [facility] Comment on above: Performed By: #### 2 96705 #### [facility],[address] [place] [address] Lymph # 0.80 x10EE3/UL Normal 0.80 - 2.80 [facility] Comment on above: Performed By: #### 2 95790 #### [facility],[address] [place] [address] Lymphocytes/100 WBC (Bld) 3.5 % Low 20.0 - 45.0 [facility] Comment on above: Performed By: #### 2 33790 #### [facility],[address] [place] [address] MANUAL DIFF N/A Normal [facility] Comment on above: Performed By: #### 2 70291 #### [facility],[address] [place] [address] MCH (RBC) [Entitic mass] 31 pg Normal 27 - 33 [facility] Comment on above: Performed By: #### 2 63412 #### [facility],[address] [place] [address] MCHC 33 X10 3 Normal 32 - 36 [facility] Comment on above: Performed By: #### 2 17334 #### [facility],[address] [place] [address] MCV (RBC) [Entitic vol] 93 fL Normal 80 - 99 [facility] Comment on above: Performed By: #### 2 18627 #### [facility],[address] [place] [address] [place] # 2.70 x10EE3/UL High 0.20 - 1.00 [facility] Comment on above: Performed By: #### 2 47535 #### [facility],[address] [place] [address] MONOS % 11.5 % High 0.0 - 10.0 [facility] Comment on above: Performed By: #### 2 34721 #### [facility],[address] [place] [address] Morphology Taiwo (Bld) [Interp] N/A Normal [facility] Comment on above: Performed By: #### 2 43864 #### [facility],[address] [place] [address] Neut # 19.70 x10EE3/UL High 1.50 - 7.10 [facility] Comment on above: Performed By: #### 2 [id number] #### [facility],[address] [place] [address] 32599 Neutrophils/100 WBC (Bld) 84.7 % High 46.0 - 76.0 [facility] Comment on above: Performed By: #### 2 05785 #### [facility],[address] [place] [address] 43975 PLATELET 253 x10EE3/UL Normal 150 - 450 [facility] Comment on above: Performed By: #### 2 90010 #### [facility],[address] [place] [address] 72259 Platelet mean volume (Bld) [Entitic vol] 8.2 fL Normal 6.6 - 10.5 [facility] Comment on above: Result Comment: AUTO MATED DIFFERENTIAL Performed By: #### 2 01374 #### [facility],[address] [place] [address] 37116 RBC 3.42 x 10EE6/UL Low 4.10 - 5.30 [facility] Comment on above: Performed By: #### 2 93905 #### [facility],[address] [place] [address] 45807 WBC 23.2 x 10EE3/UL High 4.5 - 10.8 [facility] Comment on above: Performed By: #### 2 42694 #### [facility],[address] [place] [address] 17474 KNEE 2 VIEWS LT 05-21-2022 KNEE 2 VIEWS [place] [address] Patient: MARCELO GONZALEZ Phone#: : 1945 Age: 76 Gender: F Pt. Type: Out Account: [id number] Location: [facility] Ordering: KODY REID Exam Date: 05/21/2022/14:13 Family Phys: Charge Code: [id number] Physician: [place] Order #: [id number] Dose#: PROCEDURE: X-RAY KNEE LT 2 VIEWS COMPARISON: None. INDICATIONS: Post-op eval. FINDINGS: BONES: Left knee arthroplasty with femoral and tibial hardware components. SOFT TISSUES: Expected postoperative air in the soft tissues. Cutaneous josé are present. EFFUSION: None visible. OTHER: Negative. CONCLUSION: 1. Expected postoperative changes of left knee arthroplasty. Dictated by: Blanca Barney MD on 05/21/2022 at 14:51 Approved by: Blanca Barney MD on 05/21/2022 at 14:52 Normal [facility] RAPID HIV ANTIBODY TESTon External Ctrl done? YES Normal [facility] Comment on above: Result Comment: Clin ical data has not been collected to demonstrate the performance of the [employer] Rapid HIV-1/2 Antibody test in persons less than 12 years of age. Performed By: #### 2 49668 #### [facility],[address] [place] [address] HIV AB Non-Reactive Normal [facility] Comment on above: Performed By: #### 2 63973 #### [facility],[address] [place] [address] INTERNAL CONTROL PASS Normal [facility] Comment on above: Performed By: #### 2 87618 #### [facility],[address] [place] [address] BMP with eGFRon 05-09-2022 AGE 76 years Normal [facility] Comment on above: Performed By: #### 2 33307 #### [facility],[address] [place], [place] [id number] Anion gap [Moles/Vol] 13 mmol/L Normal - [facility] Comment on above: Performed By: #### 2 17472 #### [facility],[address] [place], [place] [address] BMP with eGFR Normal [facility] Comment on above: Result Comment: BASI C METABOLIC PANEL Performed By: #### 2 87373 #### [facility],[address] [place] [address] 54011 Calcium [Mass/Vol] 8.9 mg/dL Normal 8.5 - 10.1 [facility] Comment on above: Performed By: #### 2 85460 #### [facility],[address] [place] [address] 85666 Chloride [Moles/Vol] 101 mmol/L Normal 98 - 107 [facility] Comment on above: Performed By: #### 2 42734 #### [facility],[address] [place] [address] 68071 CO2 [Moles/Vol] 27.9 mmol/L Normal 21.0 - 32.0 [facility] Comment on above: Performed By: #### 2 42004 #### [facility],[address] [place] [address] 25528 Creatinine [Mass/Vol] 1.13 mg/dL High 0.55 - 1.02 [facility] Comment on above: Performed By: #### 2 10808 #### [facility],[address] [place] [address] 57639 eGFR 47 ML/MINUTE Low 60 - 999 [facility] Comment on above: Performed By: #### 2 14215 #### [facility],[address] [place] [address] 40894 eGFR(AA) 57 ML/MINUTE Low 60 - 999 [facility] Comment on above: Result Comment: ACCO RDING TO THE NATIONAL KIDNEY DISEASE EDUCATION PROGRAM(NKDE), A NORMAL eGFR IS A VALUE GREATER THAN OR EQUAL TO 60 ML/MIN/1.73 SQ METERS. CHRONIC KIDNEY DISEASE: <60mL/MIN/1.73 SQ METERS KIDNEY FAILURE: <15mL/MIN/1.73 SQ METERS THIS TEST SHOULD ONLY BE USED FOR PATIENTS 18 YEARS OF AGE AND OLDER. Performed By: #### 2 50924 #### [facility],[address] [place] [address] 77933 Glucose [Mass/Vol] 70 mg/dL Low 74 - 106 [facility] Comment on above: Performed By: #### 2 67204 #### [facility],[address] [place] [address] Potassium [Moles/Vol] 3.8 mmol/L Normal 3.5 - 5.1 [facility] Comment on above: Performed By: #### 2 80913 #### [facility],[address] [place] [address] Sodium [Moles/Vol] 138 mmol/L Normal 136 - 145 [facility] Comment on above: Performed By: #### 2 23057 #### [facility],[address] [place] [address] Urea nitrogen [Mass/Vol] 21 mg/dL High 7 - 18 [facility] Comment on above: Performed By: #### 2 66091 #### [facility],[address] [place] [address] CBC + DIFFon 05-09-2022 Baso # 0.10 x10EE3/UL Normal 0.00 - 0.10 [facility] Comment on above: Performed By: #### 2 71036 #### [facility],[address] [place] [address] 70016 Basophils/100 WBC (Bld) 1.3 % Normal 0.0 - 2.0 [facility] Comment on above: Performed By: #### 2 98880 #### [facility],[address] [place] [address] CBC + DIFF Normal [facility] Comment on above: Result Comment: CBC- COMPLETE BLOOD COUNT Performed By: #### 2 30854 #### [facility],[address] [place] [address] EO # 0.10 x10EE3/UL Normal 0.00 - 0.50 [facility] Comment on above: Performed By: #### 2 18264 #### [facility],[address] [place] [address] 99791 Eosinophils/100 WBC (Bld) 1.7 % Normal 0.0 - 7.0 [facility] Comment on above: Performed By: #### 2 79330 #### [facility],[address] [place], [place] [id number] Erythrocyte distribution width (RBC) [Ratio] 13.9 % Normal 12.0 - 15.6 [facility] Comment on above: Performed By: #### 2 02942 #### [facility],[address] [place] [address] Hematocrit (Bld) [Volume fraction] 35.5 % Normal 34.0 - 46.0 [facility] Comment on above: Performed By: #### 2 45996 #### [facility],[address] [place] [address] Hemoglobin (Bld) [Mass/Vol] 11.9 g/dL Low 12.0 - 16.0 [facility] Comment on above: Performed By: #### 2 32799 #### [facility],[address] [place] [address] 19088 Lymph # 1.50 x10EE3/UL Normal 0.80 - 2.80 [facility] Comment on above: Performed By: #### 2 37125 #### [facility],[address] [place] [address] 72571 Lymphocytes/100 WBC (Bld) 18.1 % Low 20.0 - 45.0 [facility] Comment on above: Performed By: #### 2 75123 #### [facility],[address] [place] [address] 78887 MANUAL DIFF N/A Normal [facility] Comment on above: Performed By: #### 2 15889 #### [facility],[address] [place] [address] 59694 MCH (RBC) [Entitic mass] 31 pg Normal 27 - 33 [facility] Comment on above: Performed By: #### 2 47001 #### [facility],[address] [place] [address] MCHC 33 X10 3 Normal 32 - 36 [facility] Comment on above: Performed By: #### 2 85091 #### [facility],[address] [place], [place] [id number] MCV (RBC) [Entitic vol] 93 fL Normal 80 - 99 [facility] Comment on above: Performed By: #### 2 21826 #### [facility],[address] [place] [address] [place] # 1.00 x10EE3/UL Normal 0.20 - 1.00 [facility] Comment on above: Performed By: #### 2 96599 #### [facility],[address] [place] [address] MONOS % 12.2 % High 0.0 - 10.0 [facility] Comment on above: Performed By: #### 2 64010 #### [facility],[address] [place] [address] Morphology Taiwo (Bld) [Interp] N/A Normal [facility] Comment on above: Performed By: #### 2 03576 #### [facility],[address] [place] [address] Neut # 5.40 x10EE3/UL Normal 1.50 - 7.10 [facility] Comment on above: Performed By: #### 2 16146 #### [facility],[address] [place], [place] [id number] Neutrophils/100 WBC (Bld) 66.7 % Normal 46.0 - 76.0 [facility] Comment on above: Performed By: #### 2 08826 #### [facility],[address] [place], [place] [id number] PLATELET 355 x10EE3/UL Normal 150 - 450 [facility] Comment on above: Performed By: #### 2 12100 #### [facility],[address] [place] [address] 43269 Platelet mean volume (Bld) [Entitic vol] 8.4 fL Normal 6.6 - 10.5 [facility] Comment on above: Result Comment: AUTO MATED DIFFERENTIAL Performed By: #### 2 14702 #### [facility],[address] [place] [address] 82907 RBC 3.81 x 10EE6/UL Low 4.10 - 5.30 [facility] Comment on above: Performed By: #### 2 91986 #### [facility],[address] [place] [address] 15154 WBC 8.2 x 10EE3/UL Normal 4.5 - 10.8 [facility] Comment on above: Performed By: #### 2 47117 #### [facility],[address] [place] [address] 92780 CHEST 2 VIEWSon 05-09-2022 CHEST 2 VIEWS [place] [address] Patient: MARCELO GONZALEZ Phone#: : 1945 Age: 76 Gender: F Pt. Type: Out Account: [id number] Location: Ordering: [facility] Exam Date: 05/09/2022/11:36 Family Phys: Charge Code: [id number] Physician: [place] Order #: [id number] Dose#: PROCEDURE: X-RAY CHEST 2 VIEWS COMPARISON: None. INDICATIONS: Pre-operative evaluation. FINDINGS: LUNGS: Linear left basilar atelectasis. No significant pulmonary parenchymal abnormalities. VASCULATURE: Normal. Unremarkable pulmonary vasculature. CARDIAC: Normal. No cardiac silhouette abnormality or cardiomegaly. MEDIASTINUM: Normal. No visible mass or adenopathy. PLEURA: Normal. No effusion or pleural thickening. BONES: Mild degenerative changes of the spine are present. OTHER: Negative. CONCLUSION: No acute disease. Dictated by: Heaven Barrow MD on 05/09/2022 at 15:30 Approved by: Heaven Barrow MD on 05/09/2022 at 15:30 Normal [facility] CT LOWER EXTREMITY LT WOon 0 04-10-2022 CT LOWER EXTREMITY LT [address] [address] Patient: MARCELO GONZALEZ Phone#: : 1945 Age: 76 Gender: F Pt. Type: Out Account: [id number] Location: Ordering: KODY REID Exam Date: 04/10/2022/12:53 Family Phys: Charge Code: [id number] Physician: [place] Order #: [id number] Dose#: [id number] PROCEDURE: CT LOWER EXTREMITY LT WO CONTRAST COMPARISON: None. INDICATIONS: Unilateral primary osteoarthritis, left knee. TECHNIQUE: Multi-planar CT images were created without intravenous contrast. All CT scans at this facility use dose modulation, iterative reconstruction, and/or weight based dosing when appropriate to reduce radiation dose to as low as reasonably achievable. IV CONTRAST: No IV contrast used,0ml TOTAL DOSE: 37.10 CTDIvol(mGy) FINDINGS: BONES: Bilateral hip arthroplasties. Spurring at the pubic symphysis. There is an enchondroma in the distal femoral metaphysis. The enchondroma measures 2.6 x 1.6 x 1.5 cm. There is medial compartment joint space loss. There is a large medial femoral condyle osteochondral lesion with associated sclerosis. There is spurring of medial femoral condyle medial tibial plateau. There is lateral patellar tilt measuring 14. SOFT TISSUES: Negative. No visible soft tissue swelling. EFFUSION: Moderate sized suprapatellar joint effusion. Large Hale cysts measuring 6.1 x 1.6 x 2.2 cm. OTHER: Diverticulosis of the sigmoid colon. Pessary noted in the vagina. CONCLUSION: 1. Tricompartmental osteoarthritis. 2. Large medial compartment osteochondral lesion 3. Enchondroma in the distal femoral condyle. Dictated by: Blanca Barney MD on 04/11/2022 at 12:42 Approved by: Blanca Barney MD on 04/11/2022 at 14:50 Normal [facility] CBC W Auto Differential pane l (Bld)on 11-23-2021 Abs Immature Gran 0.05 k/uL <0.10 k/uL [facility] Basophils (Bld) [#/Vol] 0.12 10*3/uL High <0.11 k/uL [facility] Basophils/100 WBC (Bld) 1.3 % [facility] Differential cell count method Nom (Bld) Auto [facility] Eosinophils (Bld) [#/Vol] 0.12 10*3/uL <0.46 k/uL [facility] Eosinophils/100 WBC (Bld) 1.3 % [facility] Erythrocyte distribution width (RBC) [Ratio] 14.6 % 11.5 - 15.0 % [facility] Hematocrit (Bld) [Volume fraction] 33.4 % Low 36.0 - 46.0 % [facility] Hemoglobin (Bld) [Mass/Vol] 11.0 g/dL Low 11.5 - 15.5 g/dL [facility] Immature Gran % 0.5 % [facility] Lymphocytes (Bld) [#/Vol] 1.61 10*3/uL 1.00 - 4.00 k/uL [facility] Lymphocytes/100 WBC (Bld) 17.3 % [facility] MCH (RBC) [Entitic mass] 31.9 pg 26.0 - 34.0 pg [facility] MCHC (RBC) [Mass/Vol] 32.9 g/dL 30.5 - 36.0 g/dL [facility] MCV (RBC) [Entitic vol] 96.8 fL 80.0 - 100.0 fL [facility] Monocytes (Bld) [#/Vol] 1.12 10*3/uL High <0.87 k/uL [facility] Monocytes/100 WBC (Bld) 12.0 % [facility] Neutrophils (Bld) [#/Vol] 6.29 10*3/uL 1.45 - 7.50 k/uL [facility] Neutrophils/100 WBC (Bld) 67.6 % [facility] Nucleated RBC (Bld) [#/Vol] <0.01 k/uL [facility] Nucleated RBC/100 WBC (Bld) [Ratio] 0.0 /100 WBC [facility] Platelet mean volume (Bld) [Entitic vol] 9.7 fL 9.0 - 12.7 fL [facility] Platelets (Bld) [#/Vol] 423 10*3/uL High 150 - 400 k/uL [facility] RBC (Bld) [#/Vol] 3.45 10*6/uL Low 3.90 - 5.2 0 m/uL [facility] WBC (Bld) [#/Vol] 9.31 10*3/uL 3.70 - 11. 00 k/uL [facility] XR CHEST 2V FRONTAL/LATon [facility] XR Chest PA and Lateralon IMPRESSION: No acute radiographic abnormality. Still Operator Batch Or Continuous: PSCB Transcribe Date/Time: Nov 23 2021 11:15A Dictated by : NAVA CHANDLER MD This examination was interpreted and the report reviewed and electronically signed by: NAVA CHANDLER MD on Nov 23 2021 11:17AM [facility] DIVISION OF RADIOLOGY * * *Final Report* * * DATE OF EXAM: Nov 23 2021 10:57AM WOX 5291 - XR CHEST 2V FRONTAL/LAT / PROCEDURE REASON: multiple diagnoses * * * * Physician Interpretation * * * * EXAMINATION: CHEST RADIOGRAPH (2 VIEW FRONTAL & LATERAL) CLINICAL HISTORY: Post-COVID syndrome Acute cough MQ: XC2_6 EXAM DATE/TIME: 11/23/2021 10:57 AM COMPARISON: 02/09/2020 RESULT: Lines, tubes, and devices: None. Lungs and pleura: No consolidation. No lung mass. No pleural effusion. No pneumothorax. Cardiomediastinal silhouette: Normal cardiomediastinal silhouette. Bones and soft tissues: Mild degenerative change and osteophytosis throughout the dorsal spine Orthopedic hardware overlies the lower cervical region DIVISION OF RADIOLOGY Provider, [facility] - 11/23/2021 * * *Final Report* * * DATE OF EXAM: Nov 23 2021 10:57AM WOX 5291 - XR CHEST 2V FRONTAL/LAT / PROCEDURE REASON: multiple diagnoses * * * * Physician Interpretation * * * * EXAMINATION: CHEST RADIOGRAPH (2 VIEW FRONTAL & LATERAL) CLINICAL HISTORY: Post-COVID syndrome Acute cough MQ: XC2_6 EXAM DATE/TIME: 11/23/2021 10:57 AM COMPARISON: 02/09/2020 RESULT: Lines, tubes, and devices: None. Lungs and pleura: No consolidation. No lung mass. No pleural effusion. No pneumothorax. Cardiomediastinal silhouette: Normal cardiomediastinal silhouette. Bones and soft tissues: Mild degenerative change and osteophytosis throughout the dorsal spine Orthopedic hardware overlies the lower cervical region IMPRESSION IMPRESSION: No acute radiographic abnormality. Still Operator Batch Or Continuous: PSCB Transcribe Date/Time: Nov 23 2021 11:15A Dictated by : NAVA CHANDLER MD This examination was interpreted and the report reviewed and electronically signed by: NAVA CHANDLER MD on Nov 23 2021 11:17AM EST [facility] Radiology Study observation (narrative) [facility] XR Chest PA and LateralOrder ed By: [facility] Provider on 11-23-2021 [facility] 2019 CORONAVIRUSon 2 SARS-CoV-2 (COVID-19) RNA CLARIBEL+probe Ql (Resp) SARS-CoV-2 (Agent of COVID-19) Detected by RT-PCR or equivalent method. Abnormal Not Detected [facility] Absolute lymphocyte counton 11-07-2021 Lymphocytes Auto (Unsp spec) [#/Vol] 0.62 10*3/uL 0.83-4.51 [facility] Work Phone: Basophil percentageon 2021 Basophil percentage 50-100 SEEN /hpf 0-5 [facility] Work Phone: Basophils/100 WBC (Bld) 1.0 % 0-1 [facility] Work Phone: Chloride [Moles/Vol] 99 mmol/L 98-107 [facility] Work Phone: Eosinophils/100 WBC (Bld) 0.7 % 0-5 [facility] Work Phone: Glucose [Mass/Vol] 100 mg/dL 74-106 [facility] Work Phone: Comment on above: Fasting Glucose resu lt from 100 to 125 mg/dL suggests IMPAIRED HOMEOSTASIS per A.D.A. criteria. Neutrophils (Bld) [#/Vol] 3.7 10*3/uL 2.0-7.7 [facility] Work Phone: Neutrophils/100 WBC (Bld) 63.3 % 47-70 [facility] Work Phone: Potassium [Moles/Vol] 3.7 mmol/L 3.5-5.1 [facility] Work Phone: Sodium [Moles/Vol] 133 mmol/L 136-145 [facility] Work Phone: WBC (Bld) [#/Vol] 5.9 10*3/uL 4.4-11.0 [facility] Work Phone: Bilirubin Test strip Ql (U)o n 11-07-2021 Bilirubin Ql (U) Negative Negative [facility] Work Phone: Blood erythrocytes count (nu mber/volume)on 11-07-2021 RBC (Bld) [#/Vol] 3.83 10*6/uL 4.2-5.4 [facility] Work Phone: Blood hemoglobin measurement (mass/volume)on 11-07-2021 Hemoglobin (Bld) [Mass/Vol] 11.9 g/dL 12.0-15.0 [facility] Work Phone: Blood lymphocytes/100 leukoc yteson 11-07-2021 Lymphocytes/100 WBC (Bld) 10.5 % 19-41 [facility] Work Phone: Blood monocytes/100 leukocyt eson 11-07-2021 Monocytes/100 WBC (Bld) 23.8 % 0-10 [facility] Work Phone: Blood platelet mean volumeon 11-07-2021 Platelet mean volume (Bld) [Entitic vol] 10.1 fL 6.2-12.0 [facility] Work Phone: Determination of erythrocyte mean corpuscular volume (MCV)on 11-07-2021 MCV (RBC) [Entitic vol] 92.4 fL 81-99 [facility] Work Phone: Hematocrit Auto (Bld) [Volum e fraction]on 11-07-2021 Hematocrit (Bld) [Volume fraction] 35.4 % 37-47 [facility] Work Phone: Ketones Test strip Ql (U)on 11-07-2021 Ketones Ql (U) Negative Negative [facility] Work Phone: Laboratory - Chemistry and C hemistry - challengeon 11-07-2021 CO2 [Moles/Vol] 24.0 mmol/L 21.0-32.0 [facility] Work Phone: Urea nitrogen/Creatinine [Mass ratio] 10.7 mg/mg 10-20 [facility] Work Phone: Laboratory - Hematology and Cell countson 11-07-2021 Erythrocyte distribution width (RBC) [Entitic vol] 47.5 fL 35.1-43.9 [facility] Work Phone: Erythrocyte distribution width (RBC) [Ratio] 13.9 % 11.6-14.6 [facility] Work Phone: Immature granulocytes/100 WBC (Bld) 0.700 % 0.0-0.9 [facility] Work Phone: Comment on above: IG% - Immature Granu locytes (promyelocytes, myelocytes and metamyelocytes) > 1% indicates that a LEFT SHIFT is Present. MCH (RBC) [Entitic mass] 31.1 pg 27.0-32.0 [facility] Work Phone: Nucleated RBC/100 WBC (Bld) [Ratio] 0 % 0-5 [facility] Work Phone: MCHC Auto (RBC) [Mass/Vol]on 11-07-2021 MCHC (RBC) [Mass/Vol] 33.6 g/dL 32-36 [facility] Work Phone: Mucus LM Ql (Urine sed)on Mucus Ql (Urine sed) 0 SEEN /hpf [facility] Work Phone: Nitrite Test strip Ql (U)on 11-07-2021 Nitrite Ql (U) Positive Negative [facility] Work Phone: No Panel Informationon 11-07 Troponin I High Sensitivity 18 pg/mL 3.0-54.0 [facility] Work Phone: Comment on above: Please Note: New Dorothy t Units and Gender Specific Reference Ranges. For more information see Policy Stat Procedure [place] High Sensitivity Troponin (TNIH) and attachments. D-Dimer Quantitative (PE/DVT) 0.36 FEU/ug/m 0.27-0.49 [facility] Work Phone: Comment on above: NORMAL D-Dimer level (<0.50) indicates no DVT or PE. Estimated Creatinine Clearance Calc 33.38 ml/min [facility] Work Phone: Estimated GFR (MDRD) Amer 67 mL/min >60 [facility] Work Phone: Comment on above: GFR Calc Estimated GFR (MDRD) Non-Af Amer 55 mL/min >60 [facility] Work Phone: Comment on above: Non- GFR Calc Troponin I High Sensitivity 13 pg/mL 3.0-54.0 [facility] Work Phone: Comment on above: Please Note: New Dorothy t Units and Gender Specific Reference Ranges. For more information see Policy Stat Procedure [facility] High Sensitivity Troponin (TNIH) and attachments. Platelets bldon 11-07-2021 Platelets (Bld) [#/Vol] 242 10*3/uL 150-450 [facility] Work Phone: Protein Test strip Ql (U)on 11-07-2021 Protein Ql (U) 30 mg/dl Negative [facility] Work Phone: Serum or plasma calcium nikki urement (mass/volume)on 11-07-2021 Calcium [Mass/Vol] 8.7 mg/dL 8.5-10.1 [facility] Work Phone: Serum or plasma creatinine m easurement (mass/volume)on 11-07-2021 Creatinine [Mass/Vol] 1.03 mg/dL 0.55-1.02 [facility] Work Phone: Comment on above: The validity of the calculated GFR & GFRAA in patients over 70 years has not been determined. Clinical correlation is essential. Serum or plasma urea nitroge n measurement (mass/volume)on 11-07-2021 Urea nitrogen [Mass/Vol] 11 mg/dL 7-18 [facility] Work Phone: Squamous epithelial cells de tection in urine sediment by light microscopyon 11-07-2021 Epithelial cells.squamous LM Ql (Urine sed) 0-5 SEEN /hpf 5-10 [facility] Work Phone: Thin prep Papanicolaou smear with manual screeningon 11-07-2021 Thin prep Papanicolaou smear with manual screening 10 5-15 [facility] Work Phone: Urine blood detectionon 10-26 RBC Ql (U) 10 /ul Negative [facility] Work Phone: RBC Ql (U) 0-5 SEEN /hpf 0-5 [facility] Work Phone: Urine clarityon 11-07-2021 Clarity (U) Sl. Cloudy Clear [facility] Work Phone: Urine color determinationon 11-07-2021 Color (U) Yellow Yellow [facility] Work Phone: Urine glucose detectionon Glucose Ql (U) Normal mg/dl Normal [facility] Work Phone: Urine leukocyte esterase det ection by dipstickon 11-07-2021 Leukocyte esterase Test strip Ql (U) 500 /ul Negative [facility] Work Phone: Urine pHon 11-07-2021 pH (U) 6.0 [pH] 5.0 - 8.0 [facility] Work Phone: Urine sediment bacteria coun t by microscopy (number/high power field)on 11-07-2021 Bacteria LM.HPF (Urine sed) [#/Area] 4 /[HPF] None Seen [facility] Work Phone: Urine specific gravity measu rementon 11-07-2021 Specific gravity (U) [Rel density] 1.015 1.002-1.030 [facility] Work Phone: Urobilinogen Auto test strip Ql (U)on 11-07-2021 Urobilinogen Ql (U) Normal mg/dl Normal [facility] Work Phone: ECG COMPLETEon 09-15-2021 Atrial Rate 62 BPM [facility] Calculated P [place] 25 degrees [facility] Calculated R [place] 16 degrees [facility] Center Calculated T Bynum 34 degrees [facility] P-R Interval 154 ms [facility] QRS Duration 98 ms [facility] QT Interval 416 ms [facility] QTC Calculation (Bazett) 422 ms [facility] Ventricular Rate 62 BPM [facility] LIPID PANEL, NONFASTINGon Cholesterol [Mass/Vol] 227 mg/dL High <200 mg/dL [facility] HDL Cholesterol, Nonfasting 47 mg/dL >39 mg/dL [facility] LDL Cholesterol, Nonfasting 143 mg/dL High <100 mg/dL [facility] LDL/HDL Ratio, Nonfasting 3.04 mg/dL High <2.54 mg/dL [facility] Non HDL Cholesterol, Nonfasting 180 mg/dL High <130 mg/dL [facility] Total Chol/HDL Ratio, Nonfasting 4.83 mg/dL <5.10 mg/dL [facility] Triglycerides, Nonfasting 183 mg/dL High <150 mg/dL [facility] VLDL Cholesterol, Nonfasting 37 mg/dL High <30 mg/dL [facility] T4 FREE/FREE THYROXon 2021 Free T4 [Mass/Vol] 2.2 ng/dL High 0.9 - 1.7 ng/dL [facility] TSH BLDon 09-15-2021 TSH Qn 3.310 m[IU]/L 0.270 - 4.200 mIU/L [facility] CBC W Auto Differential pane l (Bld)on 09-06-2021 Abs Immature Gran 0.07 k/uL <0.10 k/uL [facility] Basophils (Bld) [#/Vol] 0.13 10*3/uL High <0.11 k/uL [facility] Basophils/100 WBC (Bld) 1.3 % [facility] Differential cell count method Nom (Bld) Auto [facility] Eosinophils (Bld) [#/Vol] 0.20 10*3/uL <0.46 k/uL [facility] Eosinophils/100 WBC (Bld) 1.9 % [facility] Erythrocyte distribution width (RBC) [Ratio] 13.4 % 11.5 - 15.0 % [facility] Hematocrit (Bld) [Volume fraction] 35.9 % Low 36.0 - 46.0 % [facility] Hemoglobin (Bld) [Mass/Vol] 11.8 g/dL 11.5 - 15.5 g/dL [facility] Immature Gran % 0.7 % [facility] Lymphocytes (Bld) [#/Vol] 2.34 10*3/uL 1.00 - 4.00 k/uL [facility] Lymphocytes/100 WBC (Bld) 22.5 % [facility] MCH (RBC) [Entitic mass] 30.7 pg 26.0 - 34.0 pg [facility] MCHC (RBC) [Mass/Vol] 32.9 g/dL 30.5 - 36.0 g/dL [facility] MCV (RBC) [Entitic vol] 93.5 fL 80.0 - 100.0 fL [facility] Monocytes (Bld) [#/Vol] 1.11 10*3/uL High <0.87 k/uL [facility] Monocytes/100 WBC (Bld) 10.7 % [facility] Neutrophils (Bld) [#/Vol] 6.53 10*3/uL 1.45 - 7.50 k/uL [facility] Neutrophils/100 WBC (Bld) 62.9 % [facility] Nucleated RBC (Bld) [#/Vol] 10*3/uL <0.01 k/uL [facility] Nucleated RBC/100 WBC (Bld) [Ratio] 0.0 /100 WBC [facility] Platelet mean volume (Bld) [Entitic vol] 10.3 fL 9.0 - 12.7 fL [facility] Platelets (Bld) [#/Vol] 343 10*3/uL 150 - 400 k/uL [facility] RBC (Bld) [#/Vol] 3.84 10*6/uL Low 3.90 - 5.2 0 m/uL [facility] WBC (Bld) [#/Vol] 10.38 10*3/uL 3.70 - 11 .00 k/uL [facility] Comprehensive metabolic 2000 panelon 09-06-2021 Albumin [Mass/Vol] 4.2 g/dL 3.9 - 4.9 g/dL [facility] ALP [Catalytic activity/Vol] 88 U/L 34 - 123 U/L [facility] ALT [Catalytic activity/Vol] 12 U/L 7 - 38 U/L [facility] Anion gap [Moles/Vol] 13 mmol/L 9 - 18 mmol/L [facility] AST [Catalytic activity/Vol] 18 U/L 13 - 35 U/L [facility] Bilirubin [Mass/Vol] 0.3 mg/dL 0.2 - 1 .3 mg/dL [facility] Calcium [Mass/Vol] 8.8 mg/dL 8.5 - 10. 2 mg/dL [facility] Chloride [Moles/Vol] 98 mmol/L 97 - 10 5 mmol/L [facility] CO2 [Moles/Vol] 23 mmol/L 22 - 30 mmol/L [facility] Creatinine [Mass/Vol] 0.99 mg/dL High 0.58 - 0.96 mg/dL [facility] Estimated Glomerular Filtration Rate 60 mL/min/1.73m >=60 mL/min/1.73m [facility] Glucose [Mass/Vol] 79 mg/dL 74 - 99 mg/dL [facility] Potassium [Moles/Vol] 3.9 mmol/L 3.7 - 5.1 mmol/L [facility] Protein [Mass/Vol] 6.9 g/dL 6.3 - 8.0 g/dL [facility] Sodium [Moles/Vol] 134 mmol/L Low 136 - 144 mmol/L [facility] Urea nitrogen [Mass/Vol] 15 mg/dL 7 - 21 mg/dL [facility] Absolute lymphocyte counton 09-01-2021 Lymphocytes Auto (Unsp spec) [#/Vol] 2.76 10*3/uL 0.83-4.51 [facility] Work Phone: Basophil percentageon 2021 Basophils/100 WBC (Bld) 1.2 % 0-1 [facility] Work Phone: Chloride [Moles/Vol] 99 mmol/L 98-107 [facility] Work Phone: Eosinophils/100 WBC (Bld) 2.4 % 0-5 [facility] Work Phone: Glucose [Mass/Vol] 79 mg/dL 74-106 [facility] Work Phone: Neutrophils (Bld) [#/Vol] 6.0 10*3/uL 2.0-7.7 [facility] Work Phone: Neutrophils/100 WBC (Bld) 57.7 % 47-70 [facility] Work Phone: Potassium [Moles/Vol] 3.9 mmol/L 3.5-5.1 [facility] Work Phone: Sodium [Moles/Vol] 132 mmol/L 136-145 [facility] Work Phone: WBC (Bld) [#/Vol] 10.4 10*3/uL 4.4-11.0 [facility] Work Phone: Blood erythrocytes count (nu mber/volume)on 09-01-2021 RBC (Bld) [#/Vol] 3.79 10*6/uL 4.2-5.4 [facility] Work Phone: Blood hemoglobin measurement (mass/volume)on 09-01-2021 Hemoglobin (Bld) [Mass/Vol] 11.6 g/dL 12.0-15.0 [facility] Work Phone: Blood lymphocytes/100 leukoc yteson 09-01-2021 Lymphocytes/100 WBC (Bld) 26.5 % 19-41 [facility] Work Phone: Blood monocytes/100 leukocyt eson 09-01-2021 Monocytes/100 WBC (Bld) 10.9 % 0-10 [facility] Work Phone: Blood platelet mean volumeon 09-01-2021 Platelet mean volume (Bld) [Entitic vol] 10.3 fL 6.2-12.0 [facility] Work Phone: Determination of erythrocyte mean corpuscular volume (MCV)on 09-01-2021 MCV (RBC) [Entitic vol] 89.4 fL 81-99 [facility] Work Phone: Hematocrit Auto (Bld) [Volum e fraction]on 09-01-2021 Hematocrit (Bld) [Volume fraction] 33.9 % 37-47 [facility] Work Phone: Laboratory - Chemistry and C hemistry - challengeon 09-01-2021 CO2 [Moles/Vol] 28.0 mmol/L 21.0-32.0 [facility] Work Phone: Urea nitrogen/Creatinine [Mass ratio] 18.7 mg/mg 10-20 [facility] Work Phone: Laboratory - Hematology and Cell countson 09-01-2021 Erythrocyte distribution width (RBC) [Entitic vol] 43.3 fL 35.1-43.9 [facility] Work Phone: Erythrocyte distribution width (RBC) [Ratio] 13.2 % 11.6-14.6 [facility] Work Phone: Immature granulocytes/100 WBC (Bld) 1.300 % 0.0-0.9 [facility] Work Phone: Comment on above: IG% - Immature Granu locytes (promyelocytes, myelocytes and metamyelocytes) > 1% indicates that a LEFT SHIFT is Present. MCH (RBC) [Entitic mass] 30.6 pg 27.0-32.0 [facility] Work Phone: Nucleated RBC/100 WBC (Bld) [Ratio] 0 % 0-5 [facility] Work Phone: MCHC Auto (RBC) [Mass/Vol]on 09-01-2021 MCHC (RBC) [Mass/Vol] 34.2 g/dL 32-36 [facility] Work Phone: No Panel Informationon 09-01 Estimated Creatinine Clearance Calc 32.63 ml/min [facility] Work Phone: Estimated GFR (MDRD) Amer 64 mL/min >60 [facility] Work Phone: Comment on above: GFR Calc Estimated GFR (MDRD) Non-Af Amer 53 mL/min >60 [facility] Work Phone: Comment on above: Non- GFR Calc Platelets bldon 09-01-2021 Platelets (Bld) [#/Vol] 306 10*3/uL 150-450 [facility] Work Phone: Serum or plasma calcium nikki urement (mass/volume)on 09-01-2021 Calcium [Mass/Vol] 8.9 mg/dL 8.5-10.1 [facility] Work Phone: Serum or plasma creatinine m easurement (mass/volume)on 09-01-2021 Creatinine [Mass/Vol] 1.07 mg/dL 0.55-1.02 [facility] Work Phone: Comment on above: The validity of the calculated GFR & GFRAA in patients over 70 years has not been determined. Clinical correlation is essential. Serum or plasma urea nitroge n measurement (mass/volume)on 09-01-2021 Urea nitrogen [Mass/Vol] 20 mg/dL 7-18 [facility] Work Phone: Thin prep Papanicolaou smear with manual screeningon 09-01-2021 Thin prep Papanicolaou smear with manual screening 5 5-15 [facility] Work Phone: Absolute lymphocyte counton 08-31-2021 Lymphocytes Auto (Unsp spec) [#/Vol] 2.89 10*3/uL 0.83-4.51 [facility] Work Phone: Basophil percentageon 2021 Basophils/100 WBC (Bld) 0.8 % 0-1 [facility] Work Phone: Chloride [Moles/Vol] 95 mmol/L 98-107 [facility] Work Phone: Eosinophils/100 WBC (Bld) 2.0 % 0-5 [facility] Work Phone: Glucose [Mass/Vol] 106 mg/dL 74-106 [facility] Work Phone: Comment on above: Fasting Glucose resu lt from 100 to 125 mg/dL suggests IMPAIRED HOMEOSTASIS per A.D.A. criteria. Neutrophils (Bld) [#/Vol] 7.9 10*3/uL 2.0-7.7 [facility] Work Phone: Neutrophils/100 WBC (Bld) 62.0 % 47-70 [facility] Work Phone: Potassium [Moles/Vol] 3.9 mmol/L 3.5-5.1 [facility] Work Phone: Sodium [Moles/Vol] 131 mmol/L 136-145 [facility] Work Phone: WBC (Bld) [#/Vol] 12.8 10*3/uL 4.4-11.0 [facility] Work Phone: Blood erythrocytes count (nu mber/volume)on 08-31-2021 RBC (Bld) [#/Vol] 4.07 10*6/uL 4.2-5.4 [facility] Work Phone: Blood hemoglobin measurement (mass/volume)on 08-31-2021 Hemoglobin (Bld) [Mass/Vol] 12.6 g/dL 12.0-15.0 [facility] Work Phone: Blood lymphocytes/100 leukoc yteson 08-31-2021 Lymphocytes/100 WBC (Bld) 22.6 % 19-41 [facility] Work Phone: Blood monocytes/100 leukocyt eson 08-31-2021 Monocytes/100 WBC (Bld) 11.0 % 0-10 [facility] Work Phone: Blood platelet mean volumeon 08-31-2021 Platelet mean volume (Bld) [Entitic vol] 10.6 fL 6.2-12.0 [facility] Work Phone: Determination of erythrocyte mean corpuscular volume (MCV)on 08-31-2021 MCV (RBC) [Entitic vol] 93.6 fL 81-99 [facility] Work Phone: Hematocrit Auto (Bld) [Volum e fraction]on 08-31-2021 Hematocrit (Bld) [Volume fraction] 38.1 % 37-47 [facility] Work Phone: Laboratory - Chemistry and C hemistry - challengeon 08-31-2021 CO2 [Moles/Vol] 28.0 mmol/L 21.0-32.0 [facility] Work Phone: Urea nitrogen/Creatinine [Mass ratio] 20.8 mg/mg 10-20 [facility] Work Phone: Laboratory - Hematology and Cell countson 08-31-2021 Erythrocyte distribution width (RBC) [Entitic vol] 46.1 fL 35.1-43.9 [facility] Work Phone: Erythrocyte distribution width (RBC) [Ratio] 13.5 % 11.6-14.6 [facility] Work Phone: Immature granulocytes/100 WBC (Bld) 1.600 % 0.0-0.9 [facility] Work Phone: Comment on above: IG% - Immature Granu locytes (promyelocytes, myelocytes and metamyelocytes) > 1% indicates that a LEFT SHIFT is Present. MCH (RBC) [Entitic mass] 31.0 pg 27.0-32.0 [facility] Work Phone: Nucleated RBC/100 WBC (Bld) [Ratio] 0 % 0-5 [facility] Work Phone: MCHC Auto (RBC) [Mass/Vol]on 08-31-2021 MCHC (RBC) [Mass/Vol] 33.1 g/dL 32-36 [facility] Work Phone: No Panel Informationon 08-31 Troponin I High Sensitivity 6 pg/mL 3.0-54.0 [facility] Work Phone: Comment on above: Please Note: New Dorothy t Units and Gender Specific Reference Ranges. For more information see Policy Stat Procedure [place] High Sensitivity Troponin (TNIH) and attachments. Estimated Creatinine Clearance Calc 26.86 ml/min [facility] Work Phone: Estimated GFR (MDRD) Amer 51 mL/min >60 [facility] Work Phone: Comment on above: GFR Calc Estimated GFR (MDRD) Non-Af Amer 42 mL/min >60 [facility] Work Phone: Comment on above: Non- GFR Calc Troponin I High Sensitivity 5 pg/mL 3.0-54.0 [facility] Work Phone: Comment on above: Please Note: New Dorothy t Units and Gender Specific Reference Ranges. For more information see Policy Stat Procedure [place] High Sensitivity Troponin (TNIH) and attachments. Platelets bldon 08-31-2021 Platelets (Bld) [#/Vol] 374 10*3/uL 150-450 [facility] Work Phone: Serum or plasma calcium nikki urement (mass/volume)on 08-31-2021 Calcium [Mass/Vol] 8.9 mg/dL 8.5-10.1 [facility] Work Phone: Serum or plasma creatinine m easurement (mass/volume)on 08-31-2021 Creatinine [Mass/Vol] 1.30 mg/dL 0.55-1.02 [facility] Work Phone: Comment on above: The validity of the calculated GFR & GFRAA in patients over 70 years has not been determined. Clinical correlation is essential. Serum or plasma urea nitroge n measurement (mass/volume)on 08-31-2021 Urea nitrogen [Mass/Vol] 27 mg/dL 7-18 [facility] Work Phone: Thin prep Papanicolaou smear with manual screeningon 08-31-2021 Thin prep Papanicolaou smear with manual screening 8 5-15 [facility] Work Phone: No Panel Informationon 07-05 Thyroid Stimulating Hormone (TSH) 2.93 uIU/mL 0.358-3.74 [facility] Work Phone: Absolute lymphocyte counton 05-16-2021 Lymphocytes Auto (Unsp spec) [#/Vol] 1.88 10*3/uL 0.83-4.51 [facility] Work Phone: Basophil percentageon 2021 Chloride [Moles/Vol] 110 mmol/L 98-107 [facility] Work Phone: Glucose [Mass/Vol] 72 mg/dL 74-106 [facility] Work Phone: Potassium [Moles/Vol] 4.2 mmol/L 3.5-5.1 [facility] Work Phone: Comment on above: Moderate Hemolysis, Result may be falsely increased. Sodium [Moles/Vol] 140 mmol/L 136-145 [facility] Work Phone: Basophils/100 WBC (Bld) 1.3 % 0-1 [facility] Work Phone: Eosinophils/100 WBC (Bld) 1.6 % 0-5 [facility] Work Phone: Neutrophils (Bld) [#/Vol] 4.4 10*3/uL 2.0-7.7 [facility] Work Phone: Neutrophils/100 WBC (Bld) 58.1 % 47-70 [facility] Work Phone: WBC (Bld) [#/Vol] 7.6 10*3/uL 4.4-11.0 [facility] Work Phone: Blood erythrocytes count (nu mber/volume)on 05-16-2021 RBC (Bld) [#/Vol] 2.99 10*6/uL 4.2-5.4 [facility] Work Phone: Blood hemoglobin measurement (mass/volume)on 05-16-2021 Hemoglobin (Bld) [Mass/Vol] 9.6 g/dL 12.0-15.0 [facility] Work Phone: Blood lymphocytes/100 leukoc yteson 05-16-2021 Lymphocytes/100 WBC (Bld) 24.8 % 19-41 [facility] Work Phone: Blood monocytes/100 leukocyt eson 05-16-2021 Monocytes/100 WBC (Bld) 13.3 % 0-10 [facility] Work Phone: Blood platelet mean volumeon 05-16-2021 Platelet mean volume (Bld) [Entitic vol] 11.0 fL 6.2-12.0 [facility] Work Phone: Determination of erythrocyte mean corpuscular volume (MCV)on 05-16-2021 MCV (RBC) [Entitic vol] 96.3 fL 81-99 [facility] Work Phone: Hematocrit Auto (Bld) [Volum e fraction]on 05-16-2021 Hematocrit (Bld) [Volume fraction] 28.8 % 37-47 [facility] Work Phone: Laboratory - Chemistry and C hemistry - challengeon 05-16-2021 CO2 [Moles/Vol] 27.0 mmol/L 21.0-32.0 [facility] Work Phone: Urea nitrogen/Creatinine [Mass ratio] 14.2 mg/mg 10-20 [facility] Work Phone: Natriuretic peptide B (Bld) [Mass/Vol] 54.2 pg/mL 0-100 [facility] Work Phone: Laboratory - Hematology and Cell countson 05-16-2021 Erythrocyte distribution width (RBC) [Entitic vol] 50.3 fL 35.1-43.9 [facility] Work Phone: Erythrocyte distribution width (RBC) [Ratio] 14.4 % 11.6-14.6 [facility] Work Phone: Immature granulocytes/100 WBC (Bld) 0.900 % 0.0-0.9 [facility] Work Phone: Comment on above: IG% - Immature Granu locytes (promyelocytes, myelocytes and metamyelocytes) > 1% indicates that a LEFT SHIFT is Present. MCH (RBC) [Entitic mass] 32.1 pg 27.0-32.0 [facility] Work Phone: Nucleated RBC/100 WBC (Bld) [Ratio] 0 % 0-5 [facility] Work Phone: MCHC Auto (RBC) [Mass/Vol]on 05-16-2021 MCHC (RBC) [Mass/Vol] 33.3 g/dL 32-36 [facility] Work Phone: No Panel Informationon 05-16 Estimated Creatinine Clearance Calc 35.27 ml/min [facility] Work Phone: Estimated GFR (MDRD) Amer 71 mL/min >60 [facility] Work Phone: Comment on above: GFR Calc Estimated GFR (MDRD) Non-Af Amer 58 mL/min >60 [facility] Work Phone: Comment on above: Non- GFR Calc Troponin I High Sensitivity 5 pg/mL 3.0-54.0 [facility] Work Phone: Comment on above: Please Note: New Dorothy t Units and Gender Specific Reference Ranges. For more information see Policy Stat Procedure [facility] High Sensitivity Troponin (TNIH) and attachments. Platelets bldon 05-16-2021 Platelets (Bld) [#/Vol] 255 10*3/uL 150-450 [facility] Work Phone: Serum or plasma calcium nikki urement (mass/volume)on 05-16-2021 Calcium [Mass/Vol] 7.8 mg/dL 8.5-10.1 [facility] Work Phone: Serum or plasma creatinine m easurement (mass/volume)on 05-16-2021 Creatinine [Mass/Vol] 0.99 mg/dL 0.55-1.02 [facility] Work Phone: Comment on above: The validity of the calculated GFR & GFRAA in patients over 70 years has not been determined. Clinical correlation is essential. Serum or plasma urea nitroge n measurement (mass/volume)on 05-16-2021 Urea nitrogen [Mass/Vol] 14 mg/dL 7-18 [facility] Work Phone: Thin prep Papanicolaou smear with manual screeningon 05-16-2021 Thin prep Papanicolaou smear with manual screening 3 15 [facility] Work Phone: XR Knee - bilateral 4 Viewso n 05-27-2020 IMPRESSION: Mild degenerative change and small left joint effusion. Still Operator Batch Or Continuous: FELIX Transcribe Date/Time: May 27 2020 4:11P Dictated by : ANGEL NORMAN MD This examination was interpreted and the report reviewed and electronically signed by: ANGEL NORMAN MD on May 27 2020 4:16PM [facility] DIVISION OF RADIOLOGY * * *Final Report* * * DATE OF EXAM: May 27 2020 4:10PM WOX [id number] - XR KNEE 4V AP/PA/LAT/MERCH BURAK / PROCEDURE REASON: multiple diagnoses * * * * Physician Interpretation * * * * PROCEDURE: Bilateral knees INDICATION: Chronic pain of left knee .bilateral knee joint pain. Unable to walk or getting out of a chair. TECHNIQUE: XR KNEE 4V AP/PA/LAT/MERCH BURAK COMPARISON: Left knee 06/09/2012 FINDINGS: Mild narrowing of the medial joint compartments bilaterally. No significant marginal spur formation. No acute fracture or dislocation. Small left joint effusion. No right joint effusion. 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 DIVISION OF RADIOLOGY Provider, [facility] - 05/27/2020 * * *Final Report* * * DATE OF EXAM: May 27 2020 4:10PM WOX [id number] - XR KNEE 4V AP/PA/LAT/MERCH BURAK / PROCEDURE REASON: multiple diagnoses * * * * Physician Interpretation * * * * PROCEDURE: Bilateral knees INDICATION: Chronic pain of left knee .bilateral knee joint pain. Unable to walk or getting out of a chair. TECHNIQUE: XR KNEE 4V AP/PA/LAT/MERCH BURAK COMPARISON: Left knee 06/09/2012 FINDINGS: Mild narrowing of the medial joint compartments bilaterally. No significant marginal spur formation. No acute fracture or dislocation. Small left joint effusion. No right joint effusion. 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 IMPRESSION IMPRESSION: Mild degenerative change and small left joint effusion. Still Operator Batch Or Continuous: PSCB Transcribe Date/Time: May 27 2020 4:11P Dictated by : ANGEL NORMAN MD This examination was interpreted and the report reviewed and electronically signed by: ANGEL NORMAN MD on May 27 2020 4:16PM EST [facility] Radiology Study observation (narrative) [facility] - bilateral 4 ViewsO rdered By: [facility] Provider on 05-27-2020 [facility] XR Chest PA and Lateralon IMPRESSION: Well defined opacity along the right cardiophrenic angle. It may represent pericardial cyst, hernia or pericardial fat pad. Still Operator [facility]atch [facility] Transcribe Date/Time: Feb 09 2020 9:29A Dictated by : OPAL GRADY MD This examination was interpreted and the report reviewed and electronically signed by: OPAL GRADY MD on Feb 09 2020 9:35AM [facility] DIVISION OF RADIOLOGY * * *Final Report* * * DATE OF EXAM: Feb 09 2020 9:13AM WOX [id number] - XR CHEST 2V FRONTAL/LAT / PROCEDURE REASON: Chronic cough * * * * Physician Interpretation * * * * EXAMINATION: CHEST RADIOGRAPH (2 VIEW FRONTAL & LATERAL) CLINICAL HISTORY: Chronic cough MQ: XC2_6 EXAM DATE/TIME: 02/09/2020 9:13 AM COMPARISON: No relevant prior studies available. RESULT: Lines, tubes, and devices: None. Lungs and pleura: No consolidation. No lung mass. No pleural effusion. No pneumothorax. Cardiomediastinal silhouette: No evidence of cardiomegaly. Well defined opacity seen in the right cardiophrenic angle. Bones and soft tissues: The spine shows degenerative changes. Status post cervical spinal fusion. DIVISION OF RADIOLOGY Provider, [facility] - 02/09/2020 * * *Final Report* * * DATE OF EXAM: Feb 09 2020 9:13AM WOX [id number] - XR CHEST 2V FRONTAL/LAT / PROCEDURE REASON: Chronic cough * * * * Physician Interpretation * * * * EXAMINATION: CHEST RADIOGRAPH (2 VIEW FRONTAL & LATERAL) CLINICAL HISTORY: Chronic cough MQ: XC2_6 EXAM DATE/TIME: 02/09/2020 9:13 AM COMPARISON: No relevant prior studies available. RESULT: Lines, tubes, and devices: None. Lungs and pleura: No consolidation. No lung mass. No pleural effusion. No pneumothorax. Cardiomediastinal silhouette: No evidence of cardiomegaly. Well defined opacity seen in the right cardiophrenic angle. Bones and soft tissues: The spine shows degenerative changes. Status post cervical spinal fusion. IMPRESSION IMPRESSION: Well defined opacity along the right cardiophrenic angle. It may represent pericardial cyst, hernia or pericardial fat pad. Still Operator Batch Or Continuous: PSCB Transcribe Date/Time: Feb 09 2020 9:29A Dictated by : OPAL GRADY MD This examination was interpreted and the report reviewed and electronically signed by: OPAL RGADY MD on Feb 09 2020 9:35AM EST [facility] Radiology Study observation (narrative) [facility] XR Chest PA and LateralOrder ed By: Tabitha Provider on 02-09-2020 [facility] Vital Signs Date Time Vital Sign Value Performing Clinician Facility 10-30-2024 13:34-0400 Body mass index (BMI) [Ratio] 35.55 kg/m2 Jane Baig APRN.[employer] Work Phone: [facility] 10-30-2024 13:34-0400 Body weight 79.83 kg Jane Baig APRN.[employer] Work Phone: [facility] 10-30-2024 13:34-0400 Diastolic blood pressure 80 mm[Hg] Jane Baig APRN.[employer] Work Phone: [facility] 10-30-2024 13:34-0400 Heart rate 66 /min Jane Baig APRN.[employer] Work Phone: [facility] 10-30-2024 13:34-0400 Respiratory rate 16 /min Jane Baig APRN.[employer] Work Phone: [facility] 10-30-2024 13:34-0400 SaO2% (BldA) [Mass fraction] 95 % Jane Baig APRN.[employer] Work Phone: [facility] 10-30-2024 13:34-0400 Systolic blood pressure 148 mm[Hg] Jane Baig APRN.[employer] Work Phone: [facility] 10-08-2024 10:15-0400 Body height 149.9 cm Trenton Taylor [employer] Work Phone: [facility] 10-08-2024 10:15-0400 Body mass index (BMI) [Ratio] 35.18 kg/m2 Cristina Taylor [employer] Work Phone: [facility] 10-08-2024 10:15-0400 Body temperature 97.3 [degF] Cristina Taylor [employer] Work Phone: [facility] 10-08-2024 10:15-0400 Body weight 79 kg Cristina Taylor [employer] Work Phone: [facility] 10-08-2024 10:15-0400 Diastolic blood pressure 76 mm[Hg] Trenton Taylor VARNISH FILTERER.[employer] Work Phone: [facility] Comment on above: Provider notified of blood pressure. 10-08-2024 10:15-0400 Heart rate 64 /min Trenton Taylor VARNISH FILTERER.[employer] Work Phone: [facility] 10-08-2024 10:15-0400 Respiratory rate 14 /min Cristina Taylor VARNISH FILTERER.[employer] Work Phone: [facility] 10-08-2024 10:15-0400 SaO2% (BldA) [Mass fraction] 97 % Trenton Taylor VARNISH FILTERER.[employer] Work Phone: [facility] 10-08-2024 10:15-0400 Systolic blood pressure 148 mm[Hg] Cristina Taylor VARNISH FILTERER.[employer] Work Phone: [facility] Comment on above: Provider notified of blood pressure. 10-04-2024 13:31-0400 Body mass index (BMI) [Ratio] 35.44 kg/m2 Dawn Swank VARNISH FILTERER.[employer] Work Phone: [facility] 10-04-2024 13:31-0400 Body temperature 98.29 [degF] Dawn Swank VARNISH FILTERER.[employer] Work Phone: [facility] 10-04-2024 13:31-0400 Body weight 79.6 kg Dawn Swank VARNISH FILTERER.[employer] Work Phone: [facility] 10-04-2024 13:31-0400 Diastolic blood pressure 76 mm[Hg] Dawn Swank VARNISH FILTERER.[employer] Work Phone: [facility] 10-04-2024 13:31-0400 Heart rate 68 /min Dawn Swank VARNISH FILTERER.[employer] Work Phone: [facility] 10-04-2024 13:31-0400 Respiratory rate 20 /min Dawn Swank VARNISH FILTERER.[employer] Work Phone: [facility] 10-04-2024 13:31-0400 SaO2% (BldA) [Mass fraction] 95 % Dawn Swank VARNISH FILTERER.[employer] Work Phone: [facility] 10-04-2024 13:31-0400 Systolic blood pressure 120 mm[Hg] Dawn Swank VARNISH FILTERER.[employer] Work Phone: [facility] 08-25-2024 10:07-0400 Body mass index (BMI) [Ratio] 34.42 kg/m2 Jane Haagen VARNISH FILTERER.[employer] Work Phone: [facility] 08-25-2024 10:07-0400 Body weight 78.47 kg Jane Haagen VARNISH FILTERER.[employer] Work Phone: [facility] 08-25-2024 10:07-0400 Diastolic blood pressure 70 mm[Hg] Jane Haagen VARNISH FILTERER.[employer] Work Phone: [facility] 08-25-2024 10:07-0400 Heart rate 64 /min Jane Haagen VARNISH FILTERER.[employer] Work Phone: [facility] 08-25-2024 10:07-0400 Respiratory rate 16 /min Jane Haagen VARNISH FILTERER.[employer] Work Phone: [facility] 08-25-2024 10:07-0400 SaO2% (BldA) [Mass fraction] 97 % Jane Haagen VARNISH FILTERER.[employer] Work Phone: [facility] 08-25-2024 10:07-0400 Systolic blood pressure 108 mm[Hg] Jane Baig VARNISH FILTERER.[employer] Work Phone: [facility] 07-08-2024 10:32-0400 Body mass index (BMI) [Ratio] 35.09 kg/m2 Cristina Taylor VARNISH FILTERER.[employer] Work Phone: [facility] 07-08-2024 10:32-0400 Body temperature 98.1 [degF] Cristina Taylor VARNISH FILTERER.[employer] Work Phone: [facility] 07-08-2024 10:32-0400 Body weight 80 kg Cristina Taylor VARNISH FILTERER.[employer] Work Phone: [facility] 07-08-2024 10:32-0400 Diastolic blood pressure 88 mm[Hg] Cristina Taylor VARNISH FILTERER.[employer] Work Phone: [facility] 07-08-2024 10:32-0400 Heart rate 63 /min Cristina Taylor VARNISH FILTERER.[employer] Work Phone: [facility] 07-08-2024 10:32-0400 SaO2% (BldA) [Mass fraction] 96 % Cristina Taylor VARNISH FILTERER.[employer] Work Phone: [facility] 07-08-2024 10:32-0400 Systolic blood pressure 170 mm[Hg] Cristina Taylor VARNISH FILTERER.[employer] Work Phone: [facility] 04-17-2024 11:40-0500 Body mass index (BMI) [Ratio] 34.42 kg/m2 Michelle Laceyan VARNISH FILTERER.[employer] Work Phone: [facility] 04-17-2024 11:40-0500 Body temperature 98.71 [degF] Michelle Suppan VARNISH FILTERER.[employer] Work Phone: [facility] 04-17-2024 11:40-0500 Body weight 78.47 kg Michelle Laceyan VARNISH FILTERER.[employer] Work Phone: [facility] 04-17-2024 11:40-0500 Diastolic blood pressure 68 mm[Hg] Michelle Suppan VARNISH FILTERER.[employer] Work Phone: [facility] 04-17-2024 11:40-0500 Heart rate 58 /min Michelle Suppan VARNISH FILTERER.[employer] Work Phone: [facility] 04-17-2024 11:40-0500 SaO2% (BldA) [Mass fraction] 98 % Michelle Suppan VARNISH FILTERER.[employer] Work Phone: [facility] 04-17-2024 11:40-0500 Systolic blood pressure 118 mm[Hg] Michelle Suppan VARNISH FILTERER.[employer] Work Phone: [facility] 04-07-2024 10:23-0500 Body mass index (BMI) [Ratio] 33.9 kg/m2 Cristina Taylor VARNISH FILTERER.[employer] Work Phone: [facility] 04-07-2024 10:23-0500 Body temperature 98.29 [degF] Trenton Taylor VARNISH FILTERER.[employer] Work Phone: [facility] 04-07-2024 10:23-0500 Body weight 77.3 kg Cristina Taylor VARNISH FILTERER.[employer] Work Phone: [facility] 04-07-2024 10:23-0500 Diastolic blood pressure 76 mm[Hg] Trenton Taylor VARNISH FILTERER.[employer] Work Phone: [facility] 04-07-2024 10:23-0500 Heart rate 61 /min Cristina Taylor VARNISH FILTERER.[employer] Work Phone: [facility] 04-07-2024 10:23-0500 SaO2% (BldA) [Mass fraction] 97 % Trenton Taylor VARNISH FILTERER.[employer] Work Phone: [facility] 04-07-2024 10:23-0500 Systolic blood pressure 120 mm[Hg] Cristina Taylor VARNISH FILTERER.[employer] Work Phone: [facility] 12-31-2023 10:19-0500 Body mass index (BMI) [Ratio] 33.24 kg/m2 Trenton Taylor VARNISH FILTERER.[employer] Work Phone: [facility] 12-31-2023 10:19-0500 Body temperature 98.1 [degF] Cristina Taylor VARNISH FILTERER.[employer] Work Phone: [facility] 12-31-2023 10:19-0500 Body weight 75.8 kg Trenton Taylor VARNISH FILTERER.[employer] Work Phone: [facility] 12-31-2023 10:19-0500 Diastolic blood pressure 82 mm[Hg] Cristina Taylor VARNISH FILTERER.[employer] Work Phone: [facility] 12-31-2023 10:19-0500 Heart rate 57 /min Cristina Taylor VARNISH FILTERER.[employer] Work Phone: [facility] 12-31-2023 10:19-0500 SaO2% (BldA) [Mass fraction] 95 % Trenton Taylor VARNISH FILTERER.[employer] Work Phone: [facility] 12-31-2023 10:19-0500 Systolic blood pressure 150 mm[Hg] Trenton Taylor VARNISH FILTERER.[employer] Work Phone: [facility] 12-02-2023 11:23-0400 Body mass index (BMI) [Ratio] 33.59 kg/m2 Madai Varghese VARNISH FILTERER.[employer] Work Phone: [facility] 12-02-2023 11:23-0400 Body temperature 97.59 [degF] Madai Varghese VARNISH FILTERER.[employer] Work Phone: [facility] 12-02-2023 11:23-0400 Body weight 76.6 kg Madai Varghese VARNISH FILTERER.[employer] Work Phone: [facility] 12-02-2023 11:23-0400 Diastolic blood pressure 68 mm[Hg] Madai Varghese VARNISH FILTERER.[employer] Work Phone: [facility] 12-02-2023 11:23-0400 Heart rate 60 /min Madai Varghese VARNISH FILTERER.[employer] Work Phone: [facility] 12-02-2023 11:23-0400 Respiratory rate 18 /min Madai Varghese VARNISH FILTERER.[employer] Work Phone: [facility] 12-02-2023 11:23-0400 SaO2% (BldA) [Mass fraction] 97 % Madai Varghese VARNISH FILTERER.[employer] Work Phone: [facility] 12-02-2023 11:23-0400 Systolic blood pressure 116 mm[Hg] Madai Varghese VARNISH FILTERER.[employer] Work Phone: [facility] 11-18-2023 09:41-0400 Diastolic blood pressure 76 mm[Hg] Jane Haagen VARNISH FILTERER.[employer] Work Phone: [facility] 11-18-2023 09:41-0400 Heart rate 54 /min Jane Haagen VARNISH FILTERER.[employer] Work Phone: [facility] 11-18-2023 09:41-0400 Respiratory rate 16 /min Jnae Haagen VARNISH FILTERER.[employer] Work Phone: [facility] 11-18-2023 09:41-0400 SaO2% (BldA) [Mass fraction] 96 % Jane Haagen VARNISH FILTERER.[employer] Work Phone: [facility] 11-18-2023 09:41-0400 Systolic blood pressure 138 mm[Hg] Jane Haagen VARNISH FILTERER.[employer] Work Phone: [facility] 10-07-2023 10:03-0400 Diastolic blood pressure 78 mm[Hg] Jane Haagen VARNISH FILTERER.[employer] Work Phone: [facility] 10-07-2023 10:03-0400 Heart rate 63 /min Jane Haagen VARNISH FILTERER.[employer] Work Phone: [facility] 10-07-2023 10:03-0400 Respiratory rate 16 /min Jane Haagen VARNISH FILTERER.[employer] Work Phone: [facility] 10-07-2023 10:03-0400 SaO2% (BldA) [Mass fraction] 95 % Jane Haagen VARNISH FILTERER.[employer] Work Phone: [facility] 10-07-2023 10:03-0400 Systolic blood pressure 142 mm[Hg] Jane Baig VARNISH FILTERER.[employer] Work Phone: [facility] 09-27-2023 10:03-0400 Body mass index (BMI) [Ratio] 33.59 kg/m2 Cristina Taylor VARNISH FILTERER.[employer] Work Phone: [facility] 09-27-2023 10:03-0400 Body temperature 98.1 [degF] Cristina Taylor VARNISH FILTERER.[employer] Work Phone: [facility] 09-27-2023 10:03-0400 Body weight 76.6 kg Cristina Taylor VARNISH FILTERER.[employer] Work Phone: [facility] 09-27-2023 10:03-0400 Diastolic blood pressure 66 mm[Hg] Cristina Taylor VARNISH FILTERER.[employer] Work Phone: [facility] 09-27-2023 10:03-0400 Heart rate 57 /min Cristina Taylor VARNISH FILTERER.[employer] Work Phone: [facility] 09-27-2023 10:03-0400 SaO2% (BldA) [Mass fraction] 97 % Cristina Taylor VARNISH FILTERER.[employer] Work Phone: [facility] 09-27-2023 10:03-0400 Systolic blood pressure 141 mm[Hg] Cristina Leslieenter VARNISH FILTERER.[employer] Work Phone: [facility] 07-17-2023 11:11-0400 Body mass index (BMI) [Ratio] 32.63 kg/m2 Cristina Taylor VARNISH FILTERER.[employer] Work Phone: [facility] 07-17-2023 11:11-0400 Body temperature 98.01 [degF] Cristina Taylor VARNISH FILTERER.[employer] Work Phone: [facility] 07-17-2023 11:11-0400 Body weight 74.39 kg Cristina Taylor VARNISH FILTERER.[employer] Work Phone: [facility] 07-17-2023 11:11-0400 Diastolic blood pressure 85 mm[Hg] Cristina Taylor VARNISH FILTERER.[employer] Work Phone: [facility] 07-17-2023 11:11-0400 Heart rate 70 /min Trenton Taylor VARNISH FILTERER.[employer] Work Phone: [facility] 07-17-2023 11:11-0400 SaO2% (BldA) [Mass fraction] 95 % Cristina Taylor VARNISH FILTERER.[employer] Work Phone: [facility] 07-17-2023 11:11-0400 Systolic blood pressure 144 mm[Hg] Cristina Taylor VARNISH FILTERER.[employer] Work Phone: [facility] 07-15-2023 09:46-0400 Diastolic blood pressure 78 mm[Hg] Jane Haagen VARNISH FILTERER.[employer] Work Phone: [facility] 07-15-2023 09:46-0400 Heart rate 81 /min Jane Haagen VARNISH FILTERER.[employer] Work Phone: [facility] 07-15-2023 09:46-0400 Respiratory rate 16 /min Jane Haagen VARNISH FILTERER.[employer] Work Phone: [facility] 07-15-2023 09:46-0400 SaO2% (BldA) [Mass fraction] 95 % Jane Haagen VARNISH FILTERER.[employer] Work Phone: [facility] 07-15-2023 09:46-0400 Systolic blood pressure 126 mm[Hg] Jane Haagen VARNISH FILTERER.[employer] Work Phone: [facility] 07-04-2023 09:48-0400 Body mass index (BMI) [Ratio] 32.5 kg/m2 Jair Gomez VARNISH FILTERER.[employer] Work Phone: [facility] 07-04-2023 09:48-0400 Body temperature 98.29 [degF] Jair Gomez VARNISH FILTERER.[employer] Work Phone: [facility] 07-04-2023 09:48-0400 Body weight 74.1 kg Jair Gomez APRN.[employer] Work Phone: [facility] 07-04-2023 09:48-0400 Diastolic blood pressure 70 mm[Hg] Jair Gomez VARNISH FILTERER.[employer] Work Phone: [facility] 07-04-2023 09:48-0400 Heart rate 67 /min Jair Gomez VARNISH FILTERER.[employer] Work Phone: [facility] 07-04-2023 09:48-0400 Respiratory rate 16 /min Jair Gomez VARNISH FILTERER.[employer] Work Phone: [facility] 07-04-2023 09:48-0400 SaO2% (BldA) [Mass fraction] 96 % Jair Gomez VARNISH FILTERER.[employer] Work Phone: [facility] 07-04-2023 09:48-0400 Systolic blood pressure 130 mm[Hg] Jair Gomez VARNISH FILTERER.[employer] Work Phone: [facility] 06-11-2023 14:41-0400 Diastolic blood pressure 68 mm[Hg] Jane Haagen VARNISH FILTERER.[employer] Work Phone: [facility] 06-11-2023 14:41-0400 Heart rate 59 /min Jane Haagen VARNISH FILTERER.[employer] Work Phone: [facility] 06-11-2023 14:41-0400 Respiratory rate 16 /min Jane Haagen VARNISH FILTERER.[employer] Work Phone: [facility] 06-11-2023 14:41-0400 SaO2% (BldA) [Mass fraction] 96 % Jane Baig VARNISH FILTERER.[employer] Work Phone: [facility] 06-11-2023 14:41-0400 Systolic blood pressure 112 mm[Hg] Jane Haagen VARNISH FILTERER.[employer] Work Phone: [facility] 05-27-2023 10:51-0400 Body temperature 98.2 [degF] Cristina Taylor VARNISH FILTERER.[employer] Work Phone: [facility] 05-27-2023 10:51-0400 Body weight 75.12 kg Cristina Taylor VARNISH FILTERER.[employer] Work Phone: [facility] 05-27-2023 10:51-0400 Diastolic blood pressure 82 mm[Hg] Cristian Taylor VARNISH FILTERER.[employer] Work Phone: [facility] 05-27-2023 10:51-0400 Heart rate 59 /min Trenton Taylor VARNISH FILTERER.[employer] Work Phone: [facility] 05-27-2023 10:51-0400 SaO2% (BldA) [Mass fraction] 97 % Trenton Taylor VARNISH FILTERER.[employer] Work Phone: [facility] 05-27-2023 10:51-0400 Systolic blood pressure 150 mm[Hg] Trenton Taylor VARNISH FILTERER.[employer] Work Phone: [facility] 04-10-2023 11:10-0500 Diastolic blood pressure 82 mm[Hg] Jane Haagen VARNISH FILTERER.[employer] Work Phone: [facility] 04-10-2023 11:10-0500 Heart rate 54 /min Jane Haagen VARNISH FILTERER.[employer] Work Phone: [facility] 04-10-2023 11:10-0500 Respiratory rate 16 /min Jane Haagen VARNISH FILTERER.[employer] Work Phone: [facility] 04-10-2023 11:10-0500 SaO2% (BldA) [Mass fraction] 96 % Jane Haagen VARNISH FILTERER.[employer] Work Phone: [facility] 04-10-2023 11:10-0500 Systolic blood pressure 150 mm[Hg] Jane Haagen VARNISH FILTERER.[employer] Work Phone: [facility] 11-06-2022 15:33-0400 Body weight 74.39 kg NA Webb PA-C Work Phone: [facility] 11-06-2022 15:33-0400 Diastolic blood pressure 76 mm[Hg] NA Webb PA-C Work Phone: [facility] 11-06-2022 15:33-0400 Heart rate 64 /min NA Webb PA-C Work Phone: [facility] 11-06-2022 15:33-0400 Respiratory rate 16 /min NA Webb PA-C Work Phone: [facility] 11-06-2022 15:33-0400 SaO2% (BldA) [Mass fraction] 97 % NA Webb PA-C Work Phone: [facility] 11-06-2022 15:33-0400 Systolic blood pressure 130 mm[Hg] NA Webb PA-C Work Phone: [facility] 10-08-2022 17:11-0400 Diastolic blood pressure 82 mm[Hg] Jane Haagen VARNISH FILTERER.[employer] Work Phone: [facility] 10-08-2022 17:11-0400 Heart rate 51 /min Jane Haagen VARNISH FILTERER.[employer] Work Phone: [facility] 10-08-2022 17:11-0400 Respiratory rate 16 /min Jane Haagen VARNISH FILTERER.[employer] Work Phone: [facility] 10-08-2022 17:11-0400 SaO2% (BldA) [Mass fraction] 92 % Jane Haagen VARNISH FILTERER.[employer] Work Phone: [facility] 10-08-2022 17:11-0400 Systolic blood pressure 138 mm[Hg] Jane Haagen VARNISH FILTERER.[employer] Work Phone: [facility] 10-03-2022 14:58-0400 Body weight 74.39 kg Jane Haagen VARNISH FILTERER.[employer] Work Phone: [facility] 10-03-2022 14:58-0400 Diastolic blood pressure 80 mm[Hg] Jane Haagen VARNISH FILTERER.[employer] Work Phone: [facility] 10-03-2022 14:58-0400 Heart rate 63 /min Jane Haagen VARNISH FILTERER.[employer] Work Phone: [facility] 10-03-2022 14:58-0400 Respiratory rate 16 /min Jane Haagen VARNISH FILTERER.[employer] Work Phone: [facility] 10-03-2022 14:58-0400 SaO2% (BldA) [Mass fraction] 93 % Jane Haagen VARNISH FILTERER.[employer] Work Phone: [facility] 10-03-2022 14:58-0400 Systolic blood pressure 142 mm[Hg] Jane Baig VARNISH FILTERER.[employer] Work Phone: [facility] 09-07-2022 09:14-0400 Body temperature 97.9 [degF] Cristina Taylor VARNISH FILTERER.[employer] Work Phone: [facility] 09-07-2022 09:14-0400 Body weight 73.48 kg Cristina Taylor VARNISH FILTERER.[employer] Work Phone: [facility] 09-07-2022 09:14-0400 Diastolic blood pressure 67 mm[Hg] Cristina Leslieenter VARNISH FILTERER.[employer] Work Phone: [facility] 09-07-2022 09:14-0400 Heart rate 60 /min Cristina Taylor VARNISH FILTERER.[employer] Work Phone: [facility] 09-07-2022 09:14-0400 SaO2% (BldA) [Mass fraction] 98 % Cristina Taylor VARNISH FILTERER.[employer] Work Phone: [facility] 09-07-2022 09:14-0400 Systolic blood pressure 122 mm[Hg] Cristina Taylor VARNISH FILTERER.[employer] Work Phone: [facility] 06-29-2022 15:39-0400 Diastolic blood pressure 71 mm[Hg] [facility] 06-29-2022 15:39-0400 Heart rate 69 /min [facility] 06-29-2022 15:39-0400 Respiratory rate 12 /min [facility] 06-29-2022 15:39-0400 SaO2% (BldA) [Mass fraction] 97 % [facility] 06-29-2022 15:39-0400 Systolic blood pressure 116 mm[Hg] [facility] 06-29-2022 15:37-0400 Body mass index (BMI) [Ratio] 33.5 kg/m2 [facility] 06-29-2022 15:37-0400 Body weight 75.4 kg [facility] 06-29-2022 11:31-0400 Body height 149.86 cm [facility] 06-29-2022 11:31-0400 Body temperature 96.9 [degF] [facility] 06-29-2022 11:08-0400 Body temperature 98.1 [degF] Juju Golden APRN.[employer] Work Phone: [facility] 06-29-2022 11:08-0400 Diastolic blood pressure 84 mm[Hg] Juju Golden APRN.[employer] Work Phone: [facility] 06-29-2022 11:08-0400 Heart rate 78 /min Juju Golden APRN.[employer] Work Phone: [facility] 06-29-2022 11:08-0400 Respiratory rate 22 /min Juju Golden APRN.[employer] Work Phone: [facility] 06-29-2022 11:08-0400 SaO2% (BldA) [Mass fraction] 99 % Juju Golden APRN.[employer] Work Phone: [facility] 06-29-2022 11:08-0400 Systolic blood pressure 138 mm[Hg] Juju Golden VARNISH FILTERER.[employer] Work Phone: [facility] 06-07-2022 10:14-0400 Body height 152 cm Cristina Taylor VARNISH FILTERER.[employer] Work Phone: [facility] 06-07-2022 10:14-0400 Body temperature 99.1 [degF] Cristina Taylor VARNISH FILTERER.[employer] Work Phone: [facility] 06-07-2022 10:14-0400 Body weight 77.11 kg Cristina Taylor VARNISH FILTERER.[employer] Work Phone: [facility] 06-07-2022 10:14-0400 Diastolic blood pressure 53 mm[Hg] Cristina Taylor VARNISH FILTERER.[employer] Work Phone: [facility] 06-07-2022 10:14-0400 Heart rate 61 /min Cristina Taylor VARNISH FILTERER.[employer] Work Phone: [facility] 06-07-2022 10:14-0400 SaO2% (BldA) [Mass fraction] 97 % Cristina Taylor VARNISH FILTERER.[employer] Work Phone: [facility] 06-07-2022 10:14-0400 Systolic blood pressure 100 mm[Hg] Cristina Taylor VARNISH FILTERER.[employer] Work Phone: [facility] 05-27-2022 07:18-0400 Diastolic blood pressure 84 mm[Hg] [facility] 05-27-2022 07:18-0400 Heart rate 72 /min [facility] 05-27-2022 07:18-0400 Respiratory rate 16 /min [facility] 05-27-2022 07:18-0400 SaO2% (BldA) [Mass fraction] 98 % [facility] 05-27-2022 07:18-0400 Systolic blood pressure 139 mm[Hg] [facility] 05-27-2022 04:48-0400 Body height 149.86 cm [facility] 05-27-2022 04:48-0400 Body mass index (BMI) [Ratio] 37.8 kg/m2 [facility] 05-27-2022 04:48-0400 Body temperature 98.7 [degF] [facility] 05-27-2022 04:48-0400 Body weight 84.8 kg [facility] 02-09-2022 14:21-0500 Body temperature 98.8 [degF] NA Webb PA-C Work Phone: [facility] 02-09-2022 14:21-0500 Body weight 76.66 kg NA Webb PA-C Work Phone: [facility] 02-09-2022 14:21-0500 Diastolic blood pressure 76 mm[Hg] NA Webb PA-C Work Phone: [facility] 02-09-2022 14:21-0500 Heart rate 56 /min NA Webb PA-C Work Phone: [facility] 02-09-2022 14:21-0500 Respiratory rate 20 /min NA Webb PA-C Work Phone: [facility] 02-09-2022 14:21-0500 SaO2% (BldA) [Mass fraction] 96 % NA Webb PA-C Work Phone: [facility] 02-09-2022 14:21-0500 Systolic blood pressure 128 mm[Hg] NA Webb PA-C Work Phone: [facility] 12-12-2021 09:23-0400 Body temperature 98.2 [degF] Trenton Taylor VARNISH FILTERER.[employer] Work Phone: [facility] 12-12-2021 09:23-0400 Body weight 75.52 kg Cristina Taylor VARNISH FILTERER.[employer] Work Phone: [facility] 12-12-2021 09:23-0400 Diastolic blood pressure 63 mm[Hg] Cristina Taylor VARNISH FILTERER.[employer] Work Phone: [facility] 12-12-2021 09:23-0400 Heart rate 64 /min Cristina Taylor VARNISH FILTERER.[employer] Work Phone: [facility] 12-12-2021 09:23-0400 Systolic blood pressure 119 mm[Hg] Trenton Taylor VARNISH FILTERER.[employer] Work Phone: [facility] 11-23-2021 09:58-0400 Body temperature 98.29 [degF] NA Webb PA-C Work Phone: [facility] 11-23-2021 09:58-0400 Body weight 74.84 kg NA Webb PA-C Work Phone: [facility] 11-23-2021 09:58-0400 Diastolic blood pressure 66 mm[Hg] NA Webb PA-C Work Phone: [facility] 11-23-2021 09:58-0400 Heart rate 71 /min NA Webb PA-C Work Phone: [facility] 11-23-2021 09:58-0400 Respiratory rate 24 /min NA Webb PA-C Work Phone: [facility] 11-23-2021 09:58-0400 SaO2% (BldA) [Mass fraction] 96 % NA Webb PA-C Work Phone: [facility] 11-23-2021 09:58-0400 Systolic blood pressure 142 mm[Hg] NA Webb PA-C Work Phone: [facility] 11-08-2021 16:37-0400 Body temperature 97.9 [degF] PROCESS PROJECT ENGINEER-C Urban Kruger PROCESS PROJECT ENGINEER Work Phone: [facility] Work Phone: 11-08-2021 16:37-0400 Diastolic blood pressure 51 mm[Hg] PROCESS PROJECT ENGINEER-C Urban Kruger PROCESS PROJECT ENGINEER Work Phone: [facility] Work Phone: 11-08-2021 16:37-0400 Heart rate 62 /min PROCESS PROJECT ENGINEER-C Urban Kruger PROCESS PROJECT ENGINEER Work Phone: [facility] Work Phone: 11-08-2021 16:37-0400 Respiratory rate 18 /min PROCESS PROJECT ENGINEER-C Urban Kruger PROCESS PROJECT ENGINEER Work Phone: [facility] Work Phone: 11-08-2021 16:37-0400 SaO2% (BldA) [Mass fraction] 97 % PROCESS PROJECT ENGINEER-C Urban Kruger PROCESS PROJECT ENGINEER Work Phone: [facility] Work Phone: 11-08-2021 16:37-0400 Systolic blood pressure 148 mm[Hg] PROCESS PROJECT ENGINEER-C Urban Kruger PROCESS PROJECT ENGINEER Work Phone: [facility] Work Phone: 11-08-2021 15:32-0400 Body height 152.4 cm PROCESS PROJECT ENGINEER-C Urban Kruger PROCESS PROJECT ENGINEER Work Phone: [facility] Work Phone: 11-08-2021 15:32-0400 Body mass index (BMI) [Ratio] 32.2 kg/m2 PROCESS PROJECT ENGINEER-C Urban Kruger PROCESS PROJECT ENGINEER Work Phone: [facility] Work Phone: 11-08-2021 15:32-0400 Body weight 74.84 kg PROCESS PROJECT ENGINEER-C Urban Kruger PROCESS PROJECT ENGINEER Work Phone: [facility] Work Phone: 11-07-2021 23:09-0400 Diastolic blood pressure 80 mm[Hg] PROCESS PROJECT ENGINEER-C Urban Kruger PROCESS PROJECT ENGINEER Work Phone: [facility] Work Phone: 11-07-2021 23:09-0400 Heart rate 74 /min PROCESS PROJECT ENGINEER-C Urban Kruger PROCESS PROJECT ENGINEER Work Phone: [facility] Work Phone: 11-07-2021 23:09-0400 Respiratory rate 16 /min PROCESS PROJECT ENGINEER-C Urban Kruger PROCESS PROJECT ENGINEER Work Phone: [facility] Work Phone: 11-07-2021 23:09-0400 SaO2% (BldA) [Mass fraction] 95 % PROCESS PROJECT ENGINEER-C Urban Kruger PROCESS PROJECT ENGINEER Work Phone: [facility] Work Phone: 11-07-2021 23:09-0400 Systolic blood pressure 135 mm[Hg] PROCESS PROJECT ENGINEER-C Urban Kruger PROCESS PROJECT ENGINEER Work Phone: [facility] Work Phone: 11-07-2021 19:23-0400 Body height 152.4 cm PROCESS PROJECT ENGINEER-C Urban Kruger PROCESS PROJECT ENGINEER Work Phone: [facility] Work Phone: 11-07-2021 19:23-0400 Body mass index (BMI) [Ratio] 32.2 kg/m2 PROCESS PROJECT ENGINEER-C Urban Kruger PROCESS PROJECT ENGINEER Work Phone: [facility] Work Phone: 11-07-2021 19:23-0400 Body temperature 97.1 [degF] PROCESS PROJECT ENGINEER-C Urban Kruger PROCESS PROJECT ENGINEER Work Phone: [facility] Work Phone: 11-07-2021 19:23-0400 Body weight 74.84 kg PROCESS PROJECT ENGINEER-C Urban Kruger PROCESS PROJECT ENGINEER Work Phone: [facility] Work Phone: 11-07-2021 08:11-0400 Diastolic blood pressure 72 mm[Hg] PROCESS PROJECT ENGINEER-C Urban Kruger PROCESS PROJECT ENGINEER Work Phone: [facility] Work Phone: 11-07-2021 08:11-0400 Heart rate 74 /min PROCESS PROJECT ENGINEER-C Urban Kruger PROCESS PROJECT ENGINEER Work Phone: [facility] Work Phone: 11-07-2021 08:11-0400 Respiratory rate 16 /min PROCESS PROJECT ENGINEER-C Urban Kruger PROCESS PROJECT ENGINEER Work Phone: [facility] Work Phone: 11-07-2021 08:11-0400 SaO2% (BldA) [Mass fraction] 95 % PROCESS PROJECT ENGINEER-C Urban Kruger PROCESS PROJECT ENGINEER Work Phone: [facility] Work Phone: 11-07-2021 08:11-0400 Systolic blood pressure 138 mm[Hg] PROCESS PROJECT ENGINEER-C Urban Kruger PROCESS PROJECT ENGINEER Work Phone: [facility] Work Phone: 11-07-2021 05:37-0400 Body height 152.4 cm PROCESS PROJECT ENGINEER-Taylor Kruger PROCESS PROJECT ENGINEER Work Phone: [facility] Work Phone: 11-07-2021 05:37-0400 Body mass index (BMI) [Ratio] 32.3 kg/m2 PROCESS PROJECT ENGINEER-C Urban Kruger PROCESS PROJECT ENGINEER Work Phone: [facility] Work Phone: 11-07-2021 05:37-0400 Body temperature 99 [degF] PROCESS PROJECT ENGINEER-Taylor Kruger PROCESS PROJECT ENGINEER Work Phone: [facility] Work Phone: 11-07-2021 05:37-0400 Body weight 75.1 kg PROCESS PROJECT ENGINEER-Taylor Kruger PROCESS PROJECT ENGINEER Work Phone: [facility] Work Phone: 09-15-2021 08:12-0400 Body height 152.4 cm Jane Haagen VARNISH FILTERER.GOLF BALL WINDER Work Phone: [facility] 09-15-2021 08:12-0400 Body temperature 98.4 [degF] Jane Haagen VARNISH FILTERER.GOLF BALL WINDER Work Phone: [facility] 09-15-2021 08:12-0400 Body weight 76.2 kg Jane Haagen VARNISH FILTERER.GOLF BALL WINDER Work Phone: [facility] 09-15-2021 08:12-0400 Diastolic blood pressure 70 mm[Hg] Jane Haagen VARNISH FILTERER.GOLF BALL WINDER Work Phone: [facility] 09-15-2021 08:12-0400 Heart rate 68 /min Jane Haagen VARNISH FILTERER.GOLF BALL WINDER Work Phone: [facility] 09-15-2021 08:12-0400 Respiratory rate 12 /min Jane Haagen VARNISH FILTERER.GOLF BALL WINDER Work Phone: [facility] 09-15-2021 08:12-0400 SaO2% (BldA) [Mass fraction] 97 % Jane Haagen VARNISH FILTERER.GOLF BALL WINDER Work Phone: [facility] 09-15-2021 08:12-0400 Systolic blood pressure 124 mm[Hg] Jane Haagen VARNISH FILTERER.GOLF BALL WINDER Work Phone: [facility] 09-06-2021 13:22-0400 Body temperature 98.91 [degF] Trenton Taylor VARNISH FILTERER.GOLF BALL WINDER Work Phone: [facility] 09-06-2021 13:22-0400 Body weight 76.89 kg Trenton Taylor VARNISH FILTERER.GOLF BALL WINDER Work Phone: [facility] 09-06-2021 13:22-0400 Diastolic blood pressure 68 mm[Hg] Cristina Taylor VARNISH FILTERER.GOLF BALL WINDER Work Phone: [facility] 09-06-2021 13:22-0400 Heart rate 60 /min Trenton Taylor VARNISH FILTERER.GOLF BALL WINDER Work Phone: [facility] 09-06-2021 13:22-0400 SaO2% (BldA) [Mass fraction] 99 % Cristina Taylor VARNISH FILTERER.GOLF BALL WINDER Work Phone: [facility] 09-06-2021 13:22-0400 Systolic blood pressure 136 mm[Hg] Cristina Leslieenter VARNISH FILTERER.GOLF BALL WINDER Work Phone: [facility] 09-01-2021 13:58-0400 Heart rate 63 /min PROCESS PROJECT ENGINEER-C Urban Kruger PROCESS PROJECT ENGINEER Work Phone: [facility] Work Phone: 09-01-2021 13:47-0400 Body temperature 97.9 [degF] PROCESS PROJECT ENGINEER-C Urban Kruger PROCESS PROJECT ENGINEER Work Phone: [facility] Work Phone: 09-01-2021 13:47-0400 Diastolic blood pressure 76 mm[Hg] PROCESS PROJECT ENGINEER-C Urban Kruger PROCESS PROJECT ENGINEER Work Phone: [facility] Work Phone: 09-01-2021 13:47-0400 Respiratory rate 16 /min PROCESS PROJECT ENGINEER-C Urban Kruger PROCESS PROJECT ENGINEER Work Phone: [facility] Work Phone: 09-01-2021 13:47-0400 SaO2% (BldA) [Mass fraction] 94 % PROCESS PROJECT ENGINEER-Taylor Kruger PROCESS PROJECT ENGINEER Work Phone: [facility] Work Phone: 09-01-2021 13:47-0400 Systolic blood pressure 133 mm[Hg] PROCESS PROJECT ENGINEER-C Urban Kruger PROCESS PROJECT ENGINEER Work Phone: [facility] Work Phone: 09-01-2021 05:21-0400 Body weight 75.6 kg PROCESS PROJECT ENGINEER-C Urban Kruger PROCESS PROJECT ENGINEER Work Phone: [facility] Work Phone: 08-31-2021 17:43-0400 Body height 152.4 cm PROCESS PROJECT ENGINEER-Taylor Kruger PROCESS PROJECT ENGINEER Work Phone: [facility] Work Phone: 08-31-2021 17:43-0400 Body mass index (BMI) [Ratio] 32.8 kg/m2 PROCESS PROJECT ENGINEER-Taylor Kruger PROCESS PROJECT ENGINEER Work Phone: [facility] Work Phone: 08-31-2021 17:17-0400 Body temperature 97.9 [degF] PROCESS PROJECT ENGINEER-C Urban Kruger PROCESS PROJECT ENGINEER Work Phone: [facility] Work Phone: 08-31-2021 17:17-0400 Diastolic blood pressure 72 mm[Hg] PROCESS PROJECT ENGINEER-C Urban Kruger PROCESS PROJECT ENGINEER Work Phone: [facility] Work Phone: 08-31-2021 17:17-0400 Heart rate 58 /min PROCESS PROJECT ENGINEER-C Urban Kruger PROCESS PROJECT ENGINEER Work Phone: [facility] Work Phone: 08-31-2021 17:17-0400 Respiratory rate 18 /min PROCESS PROJECT ENGINEER-C Urban Kruger PROCESS PROJECT ENGINEER Work Phone: [facility] Work Phone: 08-31-2021 17:17-0400 SaO2% (BldA) [Mass fraction] 97 % PROCESS PROJECT ENGINEER-Taylor Kruger PROCESS PROJECT ENGINEER Work Phone: [facility] Work Phone: 08-31-2021 17:17-0400 Systolic blood pressure 154 mm[Hg] PROCESS PROJECT ENGINEER-Taylor Kruger PROCESS PROJECT ENGINEER Work Phone: [facility] Work Phone: 08-31-2021 15:05-0400 Body height 152.4 cm PROCESS PROJECT ENGINEER-Taylor Kruger PROCESS PROJECT ENGINEER Work Phone: [facility] Work Phone: 08-31-2021 15:05-0400 Body mass index (BMI) [Ratio] 35.5 kg/m2 PROCESS PROJECT ENGINEER-Taylor Kruger PROCESS PROJECT ENGINEER Work Phone: [facility] Work Phone: 08-31-2021 15:05-0400 Body weight 82.5 kg PROCESS PROJECT ENGINEERJessica Kruger PROCESS PROJECT ENGINEER Work Phone: [facility] Work Phone: 07-11-2021 09:58-0400 Body temperature 98.49 [degF] Cristina Taylor VARNISH FILTERER.GOLF BALL WINDER Work Phone: [facility] 07-11-2021 09:58-0400 Body weight 79.83 kg Trenton Taylor VARNISH FILTERER.GOLF BALL WINDER Work Phone: [facility] 07-11-2021 09:58-0400 Diastolic blood pressure 65 mm[Hg] Cristina Taylor VARNISH FILTERER.GOLF BALL WINDER Work Phone: [facility] 07-11-2021 09:58-0400 Heart rate 59 /min Cristina Taylor VARNISH FILTERER.GOLF BALL WINDER Work Phone: [facility] 07-11-2021 09:58-0400 SaO2% (BldA) [Mass fraction] 97 % Cristina Taylor VARNISH FILTERER.GOLF BALL WINDER Work Phone: [facility] 07-11-2021 09:58-0400 Systolic blood pressure 137 mm[Hg] Trenton Taylor VARNISH FILTERER.GOLF BALL WINDER Work Phone: [facility] 07-05-2021 15:27-0400 Body mass index (BMI) [Ratio] 34.2 kg/m2 PROCESS PROJECT ENGINEERJessica Kruger PROCESS PROJECT ENGINEER Work Phone: [facility] Work Phone: 07-05-2021 15:27-0400 Body weight 79.37 kg TARAS Krugre PROCESS PROJECT ENGINEER Work Phone: [facility] Work Phone: 07-05-2021 15:27-0400 Diastolic blood pressure 74 mm[Hg] PROCESS PROJECT ENGINEERJessica Kruger PROCESS PROJECT ENGINEER Work Phone: [facility] Work Phone: 07-05-2021 15:27-0400 Heart rate 62 /min PROCESS PROJECT ENGINEER-C Urban Kruger PROCESS PROJECT ENGINEER Work Phone: [facility] Work Phone: 07-05-2021 15:27-0400 Respiratory rate 20 /min PROCESS PROJECT ENGINEER-C Urban Kruger PROCESS PROJECT ENGINEER Work Phone: [facility] Work Phone: 07-05-2021 15:27-0400 SaO2% (BldA) [Mass fraction] 97 % PROCESS PROJECT ENGINEER-C Urban Kruger PROCESS PROJECT ENGINEER Work Phone: [facility] Work Phone: 07-05-2021 15:27-0400 Systolic blood pressure 144 mm[Hg] PROCESS PROJECT ENGINEER-C Urban Kruger PROCESS PROJECT ENGINEER Work Phone: [facility] Work Phone: 07-05-2021 15:27-0400 Body height 152.4 cm PROCESS PROJECT ENGINEER-C Urban Kruger PROCESS PROJECT ENGINEER Work Phone: [facility] Work Phone: 07-05-2021 15:27-0400 Body mass index (BMI) [Ratio] 34.2 kg/m2 PROCESS PROJECT ENGINEER-C Urban Kruger PROCESS PROJECT ENGINEER Work Phone: [facility] Work Phone: 07-05-2021 15:27-0400 Body weight 79.37 kg PROCESS PROJECT ENGINEER-C Urban Kruger PROCESS PROJECT ENGINEER Work Phone: [facility] Work Phone: 07-05-2021 15:27-0400 Diastolic blood pressure 74 mm[Hg] PROCESS PROJECT ENGINEER-Taylor Kruger PROCESS PROJECT ENGINEER Work Phone: [facility] Work Phone: 07-05-2021 15:27-0400 Heart rate 62 /min PROCESS PROJECT ENGINEER-C Urban Kruger PROCESS PROJECT ENGINEER Work Phone: [facility] Work Phone: 07-05-2021 15:27-0400 Respiratory rate 20 /min PROCESS PROJECT ENGINEER-C Urban Kruger PROCESS PROJECT ENGINEER Work Phone: [facility] Work Phone: 07-05-2021 15:27-0400 SaO2% (BldA) [Mass fraction] 97 % PROCESS PROJECT ENGINEER-C Urban Kruger PROCESS PROJECT ENGINEER Work Phone: [facility] Work Phone: 07-05-2021 15:27-0400 Systolic blood pressure 144 mm[Hg] PROCESS PROJECT ENGINEER-C Urban Kruger PROCESS PROJECT ENGINEER Work Phone: [facility] Work Phone: 06-13-2021 09:52-0400 Body weight 79.38 kg Urban Kruger APRN.GOLF BALL WINDER, DNP Work Phone: [facility] 06-13-2021 09:52-0400 Diastolic blood pressure 82 mm[Hg] Urban Kruger APRN.GOLF BALL WINDER, DNP Work Phone: [facility] 06-13-2021 09:52-0400 Heart rate 61 /min Urban Kruger APRN.GOLF BALL WINDER, DNP Work Phone: [facility] 06-13-2021 09:52-0400 Respiratory rate 16 /min Urban Kruger APRN.GOLF BALL WINDER, DNP Work Phone: [facility] 06-13-2021 09:52-0400 SaO2% (BldA) [Mass fraction] 99 % Urban Kruger APRN.GOLF BALL WINDER, DNP Work Phone: [facility] 06-13-2021 09:52-0400 Systolic blood pressure 144 mm[Hg] Urban Kruger APRN.GOLF BALL WINDER, DNP Work Phone: [facility] 05-16-2021 14:54-0400 Heart rate 53 /min PROCESS PROJECT ENGINEER-C Urban Kruger PROCESS PROJECT ENGINEER Work Phone: [facility] Work Phone: 05-16-2021 14:54-0400 Respiratory rate 16 /min PROCESS PROJECT ENGINEER-C Urban Kruger PROCESS PROJECT ENGINEER Work Phone: [facility] Work Phone: 05-16-2021 14:54-0400 SaO2% (BldA) [Mass fraction] 99 % PROCESS PROJECT ENGINEER-C Urban Kruger PROCESS PROJECT ENGINEER Work Phone: [facility] Work Phone: 05-16-2021 13:19-0400 Diastolic blood pressure 69 mm[Hg] PROCESS PROJECT ENGINEER-Taylor Kruger PROCESS PROJECT ENGINEER Work Phone: [facility] Work Phone: 05-16-2021 13:19-0400 Systolic blood pressure 188 mm[Hg] PROCESS PROJECT ENGINEER-C Urban Kruger PROCESS PROJECT ENGINEER Work Phone: [facility] Work Phone: 05-16-2021 12:32-0400 Body mass index (BMI) [Ratio] 34 kg/m2 PROCESS PROJECT ENGINEER-Taylor Kruger PROCESS PROJECT ENGINEER Work Phone: [facility] Work Phone: 05-16-2021 12:32-0400 Body temperature 97.8 [degF] PROCESS PROJECT ENGINEER-C Urban Kruger PROCESS PROJECT ENGINEER Work Phone: [facility] Work Phone: 05-16-2021 12:32-0400 Body weight 78.92 kg PROCESS PROJECT ENGINEER-Taylor Kruger PROCESS PROJECT ENGINEER Work Phone: [facility] Work Phone: Encounters Encounter Date Encounter Type Care Provider Facility Start: 12-10-2024 End: 12-10-2024 ambulatory [facility] Facility:[facility] Start: 11-10-2024 End: 11-10-2024 ambulatory [facility] Facility:[facility] Start: 11-05-2024 End: 11-05-2024 Specialty Pharmacy Patrica Devries [facility] Comment on above: SPP Oral Oncology/he matology - Medication Refill (Imbruvica) Start: 11-02-2024 End: 11-03-2024 Refill Alejo Salas DO Work Phone: Hematology/Oncology Comment on above: Refill Request Start: 10-30-2024 End: 10-30-2024 Office outpatient visit 25 minutes Jane Baig APRN.GOLF BALL WINDER Work Phone: [facility] [place] Comment on above: Fatigue, unspecified type (Primary Dx); Major depressive disorder with single episode, in remission; Essential (primary) hypertension; Memory loss Start: 10-30-2024 End: 10-30-2024 ambulatory [facility] Facility:[facility] Start: 10-09-2024 End: 10-09-2024 [facility] Start: 10-08-2024 End: 10-08-2024 Patient encounter procedure Cristina Taylor APRN.GOLF BALL WINDER Work Phone: Hematology/Oncology Start: 10-08-2024 End: 10-08-2024 ambulatory Cristina Taylor VARNISH FILTERER.GOLF BALL WINDER Work Phone: Hematology/Oncology Comment on above: CLL (chronic lymphoc ytic leukemia) (HCC) (Primary Dx) Labs Start: 10-05-2024 End: 10-05-2024 Specialty Pharmacy Patriac Devries [facility] Comment on above: SPP Oral Oncology/he matology - Medication Refill (Imbruvica) Results; Medication Request Start: 10-04-2024 End: 10-04-2024 Subsequent hospital visit by physician Cameron [facility] [place] Work Phone: Radiology Comment on above: Acute right-sided lo w back pain without sciatica [M54.50] Start: 10-04-2024 End: 10-04-2024 Patient encounter procedure Dawn Cisneros VARNISH FILTERER.GOLF BALL WINDER Work Phone: [facility] [place] Comment on above: Acute right-sided lo w back pain without sciatica (Primary Dx) Start: 10-04-2024 End: 10-04-2024 ambulatory [facility] Facility:[facility] Start: 09-30-2024 End: 09-30-2024 ambulatory [facility] Facility:[facility] Start: 09-30-2024 End: 09-30-2024 ambulatory [facility] Facility:[facility] Start: 09-03-2024 End: 09-03-2024 ambulatory [facility] Facility:[facility] Start: 09-01-2024 End: 09-01-2024 Specialty Pharmacy Patrica Devries [facility] Comment on above: SPP Oral Oncology/he matology - Medication Refill (Imbruvica 140mg) Start: 08-25-2024 End: 10-25-2024 Follow-up encounter Jane Baig APRN.CNP Work Phone: [facility] Start: 08-25-2024 End: 08-25-2024 Office outpatient visit 25 minutes Jane Baig APRN.CNP Work Phone: [facility] Comment on above: Fatigue, unspecified type (Primary Dx); Mixed anxiety depressive disorder; Nausea; UTI symptoms; Hypothyroidism due to acquired atrophy of thyroid; Gastroesophageal reflux disease, unspecified whether esophagitis present; Hyperlipidemia, unspecified hyperlipidemia type Start: 08-25-2024 End: 08-25-2024 ambulatory [facility] Facility:[facility] Start: 08-06-2024 End: 08-07-2024 Specialty Pharmacy Joaquín [facility] Comment on above: SPP Oral Oncology/he matology - Medication Refill (Imbruvica) Social Work Services ; Patient Question Lab results Start: 07-29-2024 End: 07-29-2024 Refill Jane Baig APRN.CNP Work Phone: [facility] Comment on above: Refill Request Start: 07-28-2024 End: 07-28-2024 ambulatory Jane Baig PROCESS PROJECT ENGINEER-C Work Phone: [facility] Comment on above: Ankle & foot swellin g- Imbruvica? Start: 07-28-2024 End: 07-28-2024 Patient encounter procedure Felipe NELSON -Cardiovascular Services Work Phone: Start: 07-28-2024 End: 07-28-2024 ambulatory Felipe NELSON Facility:[facility] Start: 07-09-2024 End: 07-09-2024 [facility] Comment on above: SPP Oral Oncology/he matology - Medication Refill (Imbruvica) Start: 07-08-2024 End: 07-08-2024 Patient encounter procedure Cristina Taylor VARNISH FILTERER.GOLF BALL WINDER Work Phone: Hematology/Oncology Start: 07-08-2024 End: 07-08-2024 ambulatory Cristina Taylor VARNISH FILTERER.GOLF BALL WINDER Work Phone: Hematology/Oncology Comment on above: CLL (chronic lymphoc ytic leukemia) (HCC) (Primary Dx) Start: 07-07-2024 End: 07-07-2024 Orders Only Cristina Taylor VARNISH FILTERER.GOLF BALL WINDER Work Phone: Hematology/Oncology Start: 06-15-2024 End: 06-16-2024 ambulatory Cristina Taylor VARNISH FILTERER.GOLF BALL WINDER Work Phone: Hematology/Oncology Comment on above: Imbruvica Start: 06-10-2024 End: 06-10-2024 [facility] Comment on above: SPP Oral Oncology/he matology - Medication Refill (Imbruvica) Start: 06-05-2024 End: 06-05-2024 ambulatory [facility] Facility:[facility] Start: 05-14-2024 End: 07-14-2024 Follow-up encounter Michelle Hermosillo VARNISH FILTERER.GOLF BALL WINDER Work Phone: Family [facility] [place] Start: 05-12-2024 End: 05-12-2024 ambulatory [facility] Facility:[facility] Start: 05-11-2024 End: 05-11-2024 Telephone encounter Jane Baig VARNISH FILTERER.GOL[employer] B[employer] WINDER Work Phone: [facility] Comment on above: Patient Question Start: 05-08-2024 End: 05-08-2024 [facility] Comment on above: SPP Oral Oncology/he matology - Medication Refill (Imbruvica) Start: 05-05-2024 End: 05-05-2024 ambulatory [facility] Facility:[facility] Start: 04-20-2024 End: 04-20-2024 Follow-up encounter Michelle Hermosillo APRN.GOLF BALL WINDER Work Phone: Family [facility] [place] Comment on above: Recurrent UTI (urina ry tract infection) (Primary Dx) Start: 04-17-2024 End: 04-17-2024 ambulatory [facility] Facility:[facility] Start: 04-17-2024 End: 04-17-2024 Office outpatient visit 15 minutes Michelle Hermosillo APRN.GOLF BALL WINDER Work Phone: [facility] [place] Comment on above: Dysuria (Primary Dx) ; Vaginal yeast infection Start: 04-07-2024 End: 04-07-2024 Patient encounter procedure Cristina Taylor APRN.GOLF BALL WINDER Work Phone: Hematology/Oncology Start: 04-07-2024 End: 04-08-2024 ambulatory Cristina Taylor VARNISH FILTERER.GOLF BALL WINDER Work Phone: Hematology/Oncology Comment on above: CLL (chronic lymphoc ytic leukemia) (HCC) (Primary Dx) Refill Request Start: 04-06-2024 End: 04-06-2024 [facility] Comment on above: SPP Oral Oncology/he matology - Medication Refill (Imbruvica) Start: 04-03-2024 End: 04-03-2024 Telephone encounter Cristy NELSON Work Phone: [facility] Comment on above: Results Start: 04-02-2024 End: 04-02-2024 Subsequent hospital visit by physician Cameron [facility] [place] Work Phone: Radiology Comment on above: Acute cough [R05.1] Start: 04-02-2024 End: 04-02-2024 ambulatory [facility] Facility:[facility] Start: 04-02-2024 End: 04-02-2024 Patient encounter procedure Carmen Le APRN.GOLF BALL WINDER Work Phone: [facility] Comment on above: Acute cough (Primary Dx); Flu-like symptoms; Acute upper respiratory infection, unspecified Start: 03-30-2024 End: 03-30-2024 Telephone encounter Cristina Taylor VARNISH FILTERER.GOLF BALL WINDER Work Phone: Hematology/Oncology Comment on above: Patient Question Start: 03-24-2024 End: 03-25-2024 Refill Jane Haagen VARNISH FILTERER.GOLF BALL WINDER Work Phone: [facility] [place] Comment on above: Refill Request Start: 03-13-2024 End: 03-13-2024 Specialty Pharmacy Serge Montero [facility] Comment on above: SPP Oral Oncology/he matology - Medication Refill (Imbruvica) Start: 03-12-2024 End: 03-12-2024 ambulatory Cristina Taylor VARNISH FILTERER.GOLF BALL WINDER Work Phone: Hematology/Oncology Comment on above: Imbruvica Start: 03-03-2024 End: 03-03-2024 [facility] Facility:[facility] Start: 02-28-2024 End: 02-28-2024 Refill Jane Mandujanoagen VARNISH FILTERER.G[employer] BALL WINDER Work Phone: [facility] Comment on above: Refill Request Start: 02-17-2024 End: 02-17-2024 Telephone encounter Cristina Taylor VARNISH FILTERER.GOLF BALL WINDER Work Phone: [address] [place] [address] Start: 02-14-2024 End: 02-14-2024 Refill Cristina Taylor VARNISH FILTERER.G[employer] B[employer] WINDER Work Phone: Hematology/Oncology Start: 02-04-2024 End: 02-04-2024 [facility] Facility:[facility] Start: 01-21-2024 End: 01-21-2024 Telephone encounter Karli ROSARIO Hematology/Oncology Start: 01-10-2024 End: 01-10-2024 Telephone encounter Karli ROSARIO Hematology/Oncology Comment on above: 2024 Imbruvica Patie nt Assistance Start: 12-31-2023 End: 12-31-2023 Patient encounter procedure Cristina Taylor VARNISH FILTERER.[employer] W[employer]ER Work Phone: Hematology/Oncology Start: 12-31-2023 End: 12-31-2023 ambulatory Cristina Taylor VARNISH FILTERER.GOLF BALL WINDER Work Phone: Hematology/Oncology Comment on above: CLL (chronic lymphoc ytic leukemia) (HCC) (Primary Dx) Start: 12-04-2023 End: 12-04-2023 ambulatory Jane Baig APRN.GOLF BALL WINDER Work Phone: Family [facility] [place] Comment on above: medication problem Start: 12-02-2023 End: 12-02-2023 Patient encounter procedure Madai Varghese VARNISH FILTERER.GOLF BALL WINDER Work Phone: [facility] Comment on above: Burning with urinati on (Primary Dx) Start: 11-18-2023 End: 11-18-2023 Office outpatient visit 25 minutes Jane Baig APRN.GOLF BALL WINDER Work Phone: [facility] [place] Comment on above: Mixed anxiety depres sive disorder (Primary Dx); Hypothyroidism due to acquired atrophy of thyroid; Encounter for immunization; Essential hypertension, benign Start: 10-25-2023 End: 10-25-2023 Refill Jane Baig APRN.GOLF BALL WINDER Work Phone: [facility] Comment on above: Refill Request Start: 10-17-2023 End: 10-18-2023 Telephone encounter Jane Baig APRN.GOLF BALL WINDER Work Phone: [facility] [place] Comment on above: Patient Update Start: 10-09-2023 Telephone encounter Jane lopez APRN.GOLF BALL WINDER Work Phone: [facility] [place] Comment on above: Results Start: 10-07-2023 End: 10-07-2023 Subsequent hospital visit by physician Cameron [facility] [place] Work Phone: Radiology Comment on above: Finger pain, left [M 79.645] Start: 10-07-2023 End: 10-07-2023 Office outpatient visit 25 minutes Jane Baig APRN.GOLF BALL WINDER Work Phone: [facility] [place] Comment on above: Finger pain, left (P rimary Dx); Rash Start: 10-03-2023 Refill Jane Baig APRN.GOLF BALL WINDER Work Phone: [facility] [place] Comment on above: Med Change Request Start: 10-02-2023 Telephone encounter Jane lopez APRN.GOLF BALL WINDER Work Phone: Family Medicine [place] Comment on above: Results; sores on le gs Start: 09-27-2023 End: 09-27-2023 ambulatory Cristina Taylor VARNISH FILTERER.GOLF BALL WINDER Work Phone: Hematology/Oncology Comment on above: CLL (chronic lymphoc ytic leukemia) (HCC) (Primary Dx) Start: 09-27-2023 End: 09-27-2023 Patient encounter procedure Cristina Leslieenter VARNISH FILTERER.GOLF BALL WINDER Work Phone: Hematology/Oncology Start: 09-23-2023 Refill Jane Baig APRN.GOLF BALL WINDER Work Phone: Family Medicine [place] Comment on above: requesting medicatio n that is Start: 09-10-2023 Telephone encounter Jane lopez APRN.GOLF BALL WINDER Work Phone: [facility] [place] Comment on above: Medication Question Start: 09-08-2023 Refill Jnae Baig APRN.GOLF BALL WINDER Work Phone: [facility] [place] Comment on above: Med Change Request Start: 09-06-2023 Telephone encounter Jane lopez APRN.GOLF BALL WINDER Work Phone: Family Medicine [place] Comment on above: Results Start: 09-04-2023 Telephone encounter Jane lopez APRN.GOLF BALL WINDER Work Phone: Family [facility] [place] Comment on above: Lab Order Request Start: 09-03-2023 Telephone encounter Jane lopez APRN.GOLF BALL WINDER Work Phone: [facility] [place] Comment on above: handicap placard Start: 08-14-2023 Telephone encounter Jane lopez APRN.GOLF BALL WINDER Work Phone: [facility] [place] Comment on above: Results Start: 08-14-2023 End: 08-14-2023 Subsequent hospital visit by physician Mri Radio [facility] (I-Stat/1.5t) Work Phone: Radiology Comment on above: Transient cerebral i schemia, unspecified type [G45.9] Start: 07-24-2023 Telephone encounter Karli ROSARIO Hematology/Oncology Comment on above: Social Work Services Start: 07-19-2023 Telephone encounter Jane lopez VARNISH FILTERER.GOLF BALL WINDER Work Phone: [facility] [place] Comment on above: Results Start: 07-17-2023 End: 07-17-2023 ambulatory Cristina Taylor VARNISH FILTERER.GOLF BALL WINDER Work Phone: Hematology/Oncology Comment on above: CLL (chronic lymphoc ytic leukemia) (HCC) (Primary Dx) Start: 07-17-2023 End: 07-17-2023 Patient encounter procedure Trenton Taylor VARNISH FILTERER.GOLF BALL WINDER Work Phone: Hematology/Oncology Start: 07-15-2023 End: 07-15-2023 Office outpatient visit 25 minutes Jane Baig VARNISH FILTERER.GOLF BALL WINDER Work Phone: [facility] [place] Comment on above: Pneumonia of right l ower lobe due to infectious organism (Primary Dx); Transient cerebral ischemia, unspecified type; Syncope, unspecified syncope type; Abnormal thyroid function test Start: 07-10-2023 ambulatory Trenton Carpente r VARNISH FILTERER.GOLF BALL WINDER Work Phone: Hematology/Oncology Comment on above: Mom/hospital Start: 07-10-2023 Telephone encounter Jane lopez VARNISH FILTERER.GOLF BALL WINDER Work Phone: Family Medicine [place] Comment on above: Patient Update Start: 07-04-2023 Telephone encounter Madai Geoff mijares VARNISH FILTERER.GOLF BALL WINDER Work Phone: [facility] Comment on above: Results Start: 07-04-2023 End: 07-04-2023 Patient encounter procedure Jair Gomez VARNISH FILTERER.GOLF BALL WINDER Work Phone: [facility] Comment on above: URI, acute (Primary Dx); ETD (Eustachian tube dysfunction), right Start: 06-26-2023 ambulatory Cristina Carpente r VARNISH FILTERER.GOLF BALL WINDER Work Phone: Hematology/Oncology Comment on above: Anion gap & sodium l evels Start: 06-11-2023 End: 06-11-2023 Office outpatient visit 15 minutes Jane Baig VARNISH FILTERER.GOLF BALL WINDER Work Phone: [facility] Comment on above: Acute cystitis witho ut hematuria (Primary Dx); Urinary frequency Start: 06-11-2023 ambulatory Jane Baig VARNISH FILTERER.GOLF BALL WINDER Work Phone: [facility] [place] Comment on above: UTI (Frequent urinat ion ) Start: 05-30-2023 Refill Jane Baig VARNISH FILTERER.GOLF BALL WINDER Work Phone: [facility] [place] Comment on above: Refill Request Start: 05-27-2023 End: 05-27-2023 ambulatory Cristina Taylor VARNISH FILTERER.GOLF BALL WINDER Work Phone: Hematology/Oncology Comment on above: CLL (chronic lymphoc ytic leukemia) (HCC) (Primary Dx) Start: 05-27-2023 End: 05-27-2023 Patient encounter procedure Cristina Taylor VARNISH FILTERER.GOLF BALL WINDER [facility] Start: 05-13-2023 ambulatory Cristina lyles VARNISH FILTERER.GOLF BALL WINDER Work Phone: Hematology/Oncology Comment on above: Imbruvica Start: 04-10-2023 End: 04-10-2023 Office outpatient visit 15 minutes Jane Baig APRN.GOLF BALL WINDER Work Phone: [facility] [place] Comment on above: Mixed anxiety depres sive disorder (Primary Dx); Viral URI Start: 04-01-2023 Specialty Pharmacy Serge Montero [facility] Comment on above: SPP Oral Oncology/he matology - Treatment Referral (Imbruvica refill) Start: 02-01-2023 Specialty Pharmacy Serge Montero [facility] Comment on above: SPP Oral Oncology/he matology - Medication Refill (Imbruvica) Start: 01-03-2023 Telephone encounter Jane lopez APRN.GOLF BALL WINDER Work Phone: [facility] Comment on above: Refill Request Start: 01-02-2023 Specialty Pharmacy Janet Duran [facility] Comment on above: SPP Oral Oncology/he matology - Medication Refill (Imbruvica) Start: 01-01-2023 Refill Alejo Clark Work Phone: Hematology/Oncology Comment on above: Refill Request Start: 12-03-2022 Specialty Pharmacy Janet Duran [facility] Comment on above: SPP Oral Oncology/he matology - Medication Refill (Imbruvica) Start: 11-06-2022 End: 11-06-2022 Specialty Pharmacy Janet Duran [facility] Comment on above: SPP Oral Oncology/he matology - Medication Refill (Imbruvica) Encounter for immuni zation (Primary Dx); Fluid level behind tympanic membrane of right ear; 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 Start: 10-17-2022 Refill Jane Baig APRN.CNP Work Phone: Family [facility] [place] Comment on above: Refill Request Start: 10-08-2022 End: 10-08-2022 Office outpatient visit 15 minutes Jane Baig APRN.EDITA Work Phone: Family Medicine [place] Comment on above: ELLIS (middle ear effu camelia), right (Primary Dx); Rheumatoid arthritis, involving unspecified site, unspecified whether rheumatoid factor present ([facility]) Start: 10-05-2022 Telephone encounter Jane lopez APRN.EDITA Work Phone: Family Medicine [place] Comment on above: Results Refill Request; Refi ll Request Start: 10-03-2022 End: 10-03-2022 Office outpatient visit 25 minutes Jane Baig APRN.EDITA Work Phone: Family Medicine [place] Comment on above: Essential hypertensi on, benign (Primary Dx); 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; Anemia, unspecified type; Fatigue, unspecified type; Gastroesophageal reflux disease, unspecified whether esophagitis present; Mixed anxiety depressive disorder; Hyperlipidemia, unspecified hyperlipidemia type; Immunocompromised state (HCC); Stage 3b chronic kidney disease (HCC) Start: 09-20-2022 Telephone encounter Jane lopez APRN.EDITA Work Phone: Family [facility] [place] Comment on above: AVS Start: 09-10-2022 Specialty Pharmacy Janet Duran [facility] Comment on above: SPP Oral Oncology/he matology - Medication Refill (Imbruvica) Start: 09-07-2022 End: 09-07-2022 ambulatory Cristina Taylor VARNISH FILTERER.GOLF BALL WINDER Work Phone: Hematology/Oncology Comment on above: CLL (chronic lymphoc ytic leukemia) (HCC) (Primary Dx) Start: 09-07-2022 End: 09-07-2022 Patient encounter procedure Cristina Taylor VARNISH FILTERER.GOLF BALL WINDER Work Phone: [facility] Start: 09-06-2022 Refill Alejo Rodriguez O Work Phone: Hematology/Oncology Comment on above: Refill Request Start: 08-29-2022 Get Medical Advice Cristina whalen VARNISH FILTERER.GOLF BALL WINDER Work Phone: Hematology/Oncology Comment on above: Imbruvica refill Start: 06-29-2022 End: 06-29-2022 Emergency department patient visit [facility] Start: 06-29-2022 End: 06-29-2022 Patient encounter procedure Juju Golden VARNISH FILTERER.GOLF BALL WINDER Work Phone: [facility] Comment on above: Pain (Primary Dx) Start: 06-27-2022 Specialty Pharmacy Serge Montero [facility] Comment on above: SPP Oral Oncology/he matology - Medication Refill (Imbruvica) Start: 06-22-2022 Refill Alejo Rodriguez O Work Phone: Hematology/Oncology Comment on above: Refill Request Start: 06-07-2022 End: 06-07-2022 ambulatory Cristina Taylor VARNISH FILTERER.GOLF BALL WINDER Work Phone: Hematology/Oncology Comment on above: Labs from today CLL (chronic lymphoc ytic leukemia) (HCC) (Primary Dx) Start: 06-07-2022 End: 06-07-2022 Patient encounter procedure Cristina Taylor VARNISH FILTERER.GOLF BALL WINDER Work Phone: [facility] Start: 06-06-2022 End: 06-06-2022 ambulatory [facility] Start: 05-27-2022 End: 05-27-2022 Emergency department patient visit [facility] Start: 05-25-2022 Telephone encounter Jane lopez VARNISH FILTERER.GOLF BALL WINDER Work Phone: Family Medicine [place] Comment on above: Patient Update; Orde rs Start: 05-21-2022 Admission to [facility] Cristina Taylor VARNISH FILTERER.GOLF BALL WINDER Work Phone: Hematology/Oncology Comment on above: Surgery instructions for medications Start: 05-21-2022 End: 05-22-2022 ambulatory Cristina Taylor VARNISH FILTERER.GOLF BALL WINDER Work Phone: [facility] Start: 05-09-2022 End: 05-09-2022 ambulatory KODY FREEDMAN [facility] Start: 05-09-2022 End: 05-09-2022 Encounter for other preprocedural examination KODY FREEDMAN [facility] Start: 05-02-2022 Specialty Pharmacy Serge Montero [facility] Comment on above: SPP Oral Oncology/he matology - Medication Refill (Imbruvica) Start: 04-25-2022 Telephone encounter Jane lopez VARNISH FILTERER.GOLF BALL WINDER Work Phone: Family [facility] [place] Comment on above: Medical Clearance Start: 04-12-2022 Telephone encounter Cristina franks VARNISH FILTERER.GOLF BALL WINDER Work Phone: Hematology/Oncology Comment on above: Question Start: 04-10-2022 End: 04-10-[address] [facility] Start: 04-06-2022 Telephone encounter Jane lopez VARNISH FILTERER.GOLF BALL WINDER Work Phone: Family [facility] [place] Comment on above: Appointment Start: 03-30-2022 Refill Jane Baig APRN.GOLF BALL WINDER Work Phone: Family [facility] [place] Comment on above: Refill Request; Refi ll Request Start: 03-29-2022 Specialty Pharmacy Serge Montero [facility] Comment on above: SPP Oral Oncology/he matology - Medication Refill (Imbruvica) Start: 03-27-2022 Refill Alejo Clark Work Phone: Hematology/Oncology Comment on above: Refill Request Start: 03-08-2022 Refill Audrey AC RN.[facility] Work Phone: OB/Gynecology Comment on above: Refill Request Start: 02-23-2022 Specialty Pharmacy Serge [facility] Comment on above: SPP Oral Oncology/he matology - Medication Refill (Imbruvica 140mg) Start: 02-22-2022 Telephone encounter Cristina franks VARNISH FILTERERIONA Work Phone: Hematology/Oncology Comment on above: Patient Question (Me dication interaction) Start: 02-09-2022 End: 02-09-2022 Patient encounter siva Webb PA-C Work Phone: [facility] Comment on above: URI, acute (Primary Dx); CLL (chronic lymphocytic leukemia) (HCC) Start: 02-09-2022 Refill Urban AC RN.GOLF BALL WINDER, [facility] Work Phone: [facility] Comment on above: Refill Request Start: 02-01-2022 Refill Alejo Rodriguez O Work Phone: Hematology/Oncology Comment on above: Refill Request Start: 01-31-2022 Specialty Pharmacy Serge [facility] Comment on above: SPP Oral Oncology/he matology - Medication Refill (Imbruvica) Start: 01-29-2022 Refill Alejo Rodriguez O Work Phone: Hematology/Oncology Comment on above: Refill Request Start: 01-04-2022 Telephone encounter Cristina franks APRN.GOLF BALL WINDER Work Phone: Hematology/Oncology Comment on above: Patient Question; Leslie Parish (left foot/ankle swelling) Start: 12-25-2021 [facility] Comment on above: SPP Oral Oncology/he matology - Medication Refill (Imbruvica) Start: 12-12-2021 End: 12-12-2021 ambulatory Cristina Taylor APRNSilviaGOLF BALL WINDER Work Phone: Hematology/Oncology Comment on above: CLL (chronic lymphoc ytic leukemia) (HCC) (Primary Dx) Start: 12-12-2021 End: 12-12-2021 Patient encounter procedure Cristina Taylor APRN.GOLF BALL WINDER Work Phone: [facility] Start: 11-29-2021 Specialty Pharmacy Serge Montero [facility] Comment on above: SPP Oral Oncology/he matology - Medication Refill (Imbruvica) Results; Results, La b; Thyroid Problem Results Start: 11-28-2021 Refill Alejo Clark Work Phone: Hematology/Oncology Comment on above: Refill Request Start: 11-23-2021 End: 11-23-2021 Subsequent hospital visit by physician Xr [facility] [place] Work Phone: Radiology Comment on above: 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] Start: 11-23-2021 End: 11-23-2021 Patient encounter procedure Ang Webb PA-C Work Phone: [facility] Comment on above: Post-COVID syndrome (Primary Dx); Fatigue, unspecified type; Acute cough; CLL (chronic lymphocytic leukemia) (HCC); Mixed anxiety depressive disorder Start: 11-10-2021 End: 11-10-2021 ambulatory Jane Jovanni GIRARD.GOLF BALL WINDER Work Phone: [facility] Comment on above: COVID-19 (Primary Dx ) Start: 11-10-2021 End: 11-10-2021 Telemedicine consultation with patient Jane Baig ERA.GOLF BALL WINDER Work Phone: [facility] Start: 11-08-2021 End: 11-08-2021 ambulatory PROCESS PROJECT ENGINEER-Taylor Kruger PROCESS PROJECT ENGINEER Work Phone: [facility] Work Phone: Start: 11-08-2021 End: 11-08-2021 Patient encounter procedure PROCESS PROJECT ENGINEERJessica Kruger PROCESS PROJECT ENGINEER Work Phone: [facility]-Medical Surgical 3 Outp Start: 11-08-2021 Patient encounter procedure PROCESS PROJECT ENGINEERJessica Kruger PROCESS PROJECT ENGINEER Work Phone: [facility] [facility] Start: 11-07-2021 End: 11-07-2021 Emergency department patient visit PROCESS PROJECT ENGINEER-Taylor Kruger PROCESS PROJECT ENGINEER [facility] Start: 11-07-2021 Telephone encounter Jane lopez VARNISH FILTERER.GOLF BALL WINDER Work Phone: [facility] [place] Comment on above: Patient Update; Eve ent Question Options Advisor - O ther ( Follow-up ) Start: 11-07-2021 End: 11-07-2021 Emergency department patient visit PROCESS PROJECT ENGINEERJessica Kruger PROCESS PROJECT ENGINEER [facility] Phone[facility] Start: 11-06-2021 End: 11-06-2021 ambulatory Jane Baig APRN.GOLF BALL WINDER Work Phone: Family [facility] Comment on above: COVID-19 (Primary Dx ) Start: 11-06-2021 End: 11-06-2021 Telemedicine consultation with patient Jane Baig ERA.GOLF BALL WINDER Work Phone: [facility] Start: 11-06-2021 Telephone encounter Jane lopez VARNISH FILTERER.GOLF BALL WINDER Work Phone: [facility] [place] Comment on above: positive covid home test 11/05 Options Advisor - O ther ( Follow-up ) Start: 11-05-2021 ambulatory Cristina lyles VARNISH FILTERER.GOLF BALL WINDER Work Phone: Hematology/Oncology Comment on above: Mom is covid positiv e Start: 10-27-2021 Specialty Pharmacy [facility]o [facility] Comment on above: SPP Oral Oncology/he matology - Medication Refill (Imbruvica) Start: 09-27-2021 Specialty Pharmacy Janet Duran [facility] Comment on above: SPP Oral Oncology/he matology - Medication Refill (Imbruvica) Results Start: 09-26-2021 Refill Alejo Rodriguez O Work Phone: Hematology/Oncology Comment on above: Refill Request Start: 09-15-2021 End: 09-15-2021 Office outpatient visit 25 minutes Jane Baig VARNISH FILTERER.GOLF BALL WINDER Work Phone: [facility] Comment on above: Chest pain, unspecif ied type (Primary Dx); 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; Hyperlipidemia, unspecified hyperlipidemia type; Mixed anxiety depressive disorder; Gastroesophageal reflux disease, unspecified whether esophagitis present Start: 09-06-2021 End: 09-06-2021 ambulatory Cristina Taylor VARNISH FILTERER.GOLF BALL WINDER Work Phone: Hematology/Oncology Comment on above: CLL (chronic lymphoc ytic leukemia) (HCC) (Primary Dx) Start: 09-06-2021 End: 09-06-2021 Patient encounter procedure Cristina Taylor VARNISH FILTERER.GOLF BALL WINDER Work Phone: [facility] Start: 09-05-2021 Telephone encounter Cristina franks VARNISH FILTERER.GOLF BALL WINDER Work Phone: Hematology/Oncology Comment on above: Orders Start: 09-01-2021 Non-patient / Non-visit PROCESS PROJECT ENGINEER-C Michael Kruger PROCESS PROJECT ENGINEER Work Phone: [facility] Inpatient Physicians Start: 08-31-2021 End: 09-01-2021 Non-patient / Non-visit PROCESS PROJECT ENGINEER-C Urban Kruger PROCESS PROJECT ENGINEER Work Phone: [facility] Start: 08-31-2021 End: 09-01-2021 Evaluation and management of inpatient PROCESS PROJECT ENGINEER-C Urban Kruger PROCESS PROJECT ENGINEER Work Phone: [facility]-Progressive Care Unit Start: 08-30-2021 Specialty Pharmacy Serge Montero [facility] Comment on above: SPP Oral Oncology/he matology - Medication Refill (Imbruvica) Start: 08-16-2021 ambulatory Cristina Freitas r VARNISH FILTERER.GOLF BALL WINDER Work Phone: Hematology/Oncology Comment on above: Imbruvica Jamari Start: 08-16-2021 Telephone encounter Janet Scott Hematology/Oncology Comment on above: Patient Assistance Start: 08-14-2021 Refill Urban AC RN.GOLF BALL WINDER, DNP Work Phone: [facility] Comment on above: Refill Request Start: 08-08-2021 Orders Only Alejo Clark Work Phone: Hematology/Oncology Comment on above: CLL (chronic lymphoc ytic leukemia) (HCC) (Primary Dx) Start: 08-03-2021 Specialty Pharmacy Serge [facility] Comment on above: SPP Oral Oncology/he matology - Medication Refill (Imbruvica 140mg) Start: 07-25-2021 Non-patient / Non-visit PROCESS PROJECT ENGINEER-Taylor Kruger PROCESS PROJECT ENGINEER Work Phone: [facility] Start: 07-25-2021 Refill Urban AC RN.GOLF BALL WINDER, DNP Work Phone: [facility] Comment on above: Refill Request Start: 07-25-2021 End: 07-25-2021 Patient encounter procedure PROCESS PROJECT ENGINEER-Taylor Kruger PROCESS PROJECT ENGINEER Work Phone: [facility] Start: 07-21-2021 Refill Alejo Clark Work Phone: Hematology/Oncology Comment on above: Refill Request Start: 07-18-2021 Telephone encounter Urban johnson APRN.GOLF BALL WINDER, DNP Work Phone: [facility] Comment on above: Medication Question Start: 07-14-2021 End: 07-14-2021 Patient encounter procedure PROCESS PROJECT ENGINEERJessica Kruger NP Work Phone: [facility]-Pulmonary Services/Neurology Start: 07-11-2021 End: 07-11-2021 [facility] Comment on above: SPP Oral Oncology/he matology - Medication Refill (Imbruvica) CLL (chronic lymphoc ytic leukemia) (HCC) (Primary Dx) Start: 07-05-2021 End: 07-05-2021 Patient encounter procedure TARAS Kruger NP Work Phone: [facility] Start: 07-04-2021 Telephone encounter Cathy Lawton RN He matology/Oncology Comment on above: Options Advisor - O ther (Symptoms ); Patient Question Start: 06-29-2021 Telephone encounter Alejo crowder DO Work Phone: Hematology/Oncology Comment on above: Patient Question Start: 06-28-2021 Non-patient / Non-visit PROCESS PROJECT ENGINEER-Taylor Kruger PROCESS PROJECT ENGINEER Work Phone: [facility] Start: 06-27-2021 Non-patient / Non-visit PROCESS PROJECT ENGINEERJessica Kruger PROCESS PROJECT ENGINEER Work Phone: [facility] Start: 06-16-2021 Specialty Pharmacy Janet Duran RP [facility] Comment on above: SPP Oral Oncology/he matology - Medication Refill (Imbruvica) Start: 06-13-2021 End: 06-13-2021 Patient encounter procedure Urban Kruger APRN.GOLF BALL WINDER, DNP Work Phone: [facility] Comment on above: Essential hypertensi on, benign (Primary Dx); Stage 3b chronic kidney disease (HCC); CLL (chronic lymphocytic leukemia) (HCC); Mixed anxiety depressive disorder; 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 Start: 05-22-2021 Specialty Pharmacy [facility] Duran [facility] Comment on above: SPP Oral Oncology/he matology - Medication Refill (Imbruvica) Start: 05-18-2021 Refill Alejo Clark Work Phone: Hematology/Oncology Comment on above: Refill Request (imbr uvica) Start: 05-16-2021 End: 05-16-2021 Emergency department patient visit PROCESS PROJECT ENGINEER-Taylor Kruger PROCESS PROJECT ENGINEER Work Phone: [facility]Emergency Department Start: 05-27-2020 End: 05-27-2020 Subsequent hospital visit by physician [facility] Work Phone: Radiology Comment on above: Chronic pain of left knee [M25.562, G89.29] Start: 02-09-2020 End: 02-09-2020 Subsequent hospital visit by physician Cameron Erlanger [facility] Work Phone: Radiology Comment on above: Chronic cough [R05] Procedures Date Procedure Procedure Detail Performing Clinician Start: 10-09-2024 Magdiel BAIG Start: 10-04-2024 Radex spine lumbosacral 2/3 views Dawn Cisneros [employer]ARNISH [employer]TERER[employer] Work Phone: Start: 08-25-2024 Urnls dip stick/tablet rgnt auto w/o microscopy Jane Baig [employer]ARN[employer] Work Phone: Start: 04-17-2024 Urnls dip stick/tablet rgnt auto w/o microscopy Michelle Hermosillo [employer]ARNISH [employer] Work Phone: Start: 04-02-2024 Radiologic exam chest 2 views Carmen Le [employer]ARNISH [employer] Work Phone: Start: 12-02-2023 Urnls dip stick/tablet rgnt auto w/o microscopy Madai Varghese [employer]ARNISH [employer] Work Phone: Start: 10-07-2023 Radex fingr minimum 2 views Jane sanchez [employer]ARN[employer] Work Phone: Start: 08-14-2023 Mri brain brain stem w/o contrast material Jane Baig [employer]ARNISH [employer] Work Phone: Start: 07-04-2023 COVID & INFLUENZA A/B & RSV NAAT, ROUTINE Jair Gomez [employer] Work Phone: Start: 06-11-2023 Urnls dip stick/tablet rgnt auto w/o microscopy Jane Baig [employer]ARNISH [employer] Work Phone: Start: 11-06-2022 INFLUENZA VACCINE, PRSV FREE, AGE 65+ YR, HIGH DOSE, QUADRIVALENT (FLUZONE HIGH-DOSE) Ang Webb PA-C Work Phone: Start: 10-03-2022 Urnls dip stick/tablet rgnt auto w/o microscopy Jane Baig APRN.CNP Work Phone: Start: 06-29-2022 Radiography of ankle Start: 06-29-2022 Pelvis X-ray Start: 06-29-2022 Plain X-ray of femur Start: 06-29-2022 Radiologic examination of knee Start: 06-29-2022 X-ray of both feet Start: 05-27-2022 Plain X-ray abdomen Start: 11-23-2021 Radiologic exam chest 2 views Ang Webb PA-C Work Phone: Start: 11-07-2021 Plain chest X-ray PROCESS PROJECT ENGINEERJessica Kruger PROCESS PROJECT ENGINEER Work Phone: Start: 11-07-2021 CT of chest without contrast TARAS Kruger PROCESS PROJECT ENGINEER Work Phone: Start: 11-07-2021 Plain chest X-ray TARAS Kruger PROCESS PROJECT ENGINEER Work Phone: Start: 09-15-2021 Ecg routine ecg w/least 12 lds w/i&r Jane Baig APRN.CNP Work Phone: Start: 09-01-2021 Cardiovascular stress test using pharmacologic stress agent TARAS Kruger NP Work Phone: Start: 08-31-2021 Plain chest X-ray TARAS Kruger PROCESS PROJECT ENGINEER Work Phone: Start: 05-16-2021 CT angiography of chest with contrast TARAS Kruger NP Work Phone: Start: 05-27-2020 Radiologic exam knee complete 4/more views Urban Kruger APRN.CNP, DNP Work Phone: Start: 02-09-2020 Radiologic exam chest 2 views Urban Kruger APRN.CNP, DNP Work Phone: History of total hysterectomy History of total hysterectomy TARAS Kruger PROCESS PROJECT ENGINEER Work Phone: Plan of Treatment Date Care Activity Detail Author Start: 10-09-2027 Diabetes Screening Diabetes Screening [facility] Start: 10-01-2027 Diabetes Screening Diabetes Screening [facility] Start: 08-07-2027 Diabetes Screening Diabetes Screening [facility] Start: 07-09-2027 Diabetes Screening Diabetes Screening [facility] Start: 06-06-2027 Diabetes Screening Diabetes Screening [facility] Start: 05-06-2027 Diabetes Screening Diabetes Screening [facility] Start: 04-07-2027 Diabetes Screening Diabetes Screening [facility] Start: 03-03-2027 Diabetes Screening Diabetes Screening [facility] Start: 02-03-2027 Diabetes Screening Diabetes Screening [facility] Start: 12-30-2026 Diabetes Screening Diabetes Screening [facility] Start: 12-01-2026 Diabetes Screening Diabetes Screening [facility] Start: 10-28-2026 Diabetes Screening Diabetes Screening [facility] Start: 09-26-2026 Diabetes Screening Diabetes Screening [facility] Start: 08-19-2026 Diabetes Screening Diabetes Screening [facility] Start: 07-16-2026 Diabetes Screening Diabetes Screening [facility] Start: 06-25-2026 Diabetes Screening Diabetes Screening [facility] Start: 05-26-2026 Diabetes Screening Diabetes Screening [facility] Start: 04-28-2026 Diabetes Screening Diabetes Screening [facility] Start: 04-01-2026 Diabetes Screening Diabetes Screening [facility] Start: 01-25-2026 Diabetes Screening Diabetes Screening [facility] Start: 12-28-2025 Diabetes Screening Diabetes Screening [facility] Start: 11-30-2025 Diabetes Screening Diabetes Screening [facility] Start: 11-02-2025 Diabetes Screening Diabetes Screening [facility] Start: 10-30-2025 Annual PCP Team Chronic Disease Visit Annual PCP Team Chronic Disease Visit [facility] Start: 10-08-2025 Complete blood count Hemoglobin/Hematocrit [facility] Start: 10-08-2025 Creatinine measurement Serum Creatinine [facility] Start: 10-05-2025 DIABETES SCREEN DIABETES SCREEN [facility] Start: 09-30-2025 Annual PCP Team Chronic Disease Visit Annual PCP Team Chronic Disease Visit [facility] Start: 09-30-2025 Complete blood count Hemoglobin/Hematocrit [facility] Start: 09-30-2025 Creatinine measurement Serum Creatinine [facility] Start: 09-07-2025 DIABETES SCREEN DIABETES SCREEN [facility] Start: 08-25-2025 Annual PCP Team Chronic Disease Visit Annual PCP Team Chronic Disease Visit [facility] Start: 08-16-2025 DIABETES SCREEN DIABETES SCREEN [facility] Start: 08-06-2025 Complete blood count Hemoglobin/Hematocrit [facility] Start: 08-06-2025 Creatinine measurement Serum Creatinine [facility] Start: 07-08-2025 Complete blood count Hemoglobin/Hematocrit [facility] Start: 07-08-2025 Creatinine measurement Serum Creatinine [facility] Start: 06-07-2025 DIABETES SCREEN DIABETES SCREEN [facility] Start: 06-05-2025 Complete blood count Hemoglobin/Hematocrit [facility] Start: 06-05-2025 Creatinine measurement Serum Creatinine [facility] Start: 05-10-2025 DIABETES SCREEN DIABETES SCREEN [facility] Start: 05-05-2025 Complete blood count Hemoglobin/Hematocrit [facility] Start: 05-05-2025 Creatinine measurement Serum Creatinine [facility] Start: 05-03-2025 End: 05-03-2025 Patient encounter procedure 05/03/2025 6:20 PM EDT Office Visit Family Janelle [place] [address] [place] [address] Jane Baig, [employer]ARNISH [employer] [address] [place] [address] 6 month follow up/AWV Family Janelle [facility] Comment on above: 6 month follow up/AWV Start: 04-17-2025 Annual PCP Team Chronic Disease Visit Annual PCP Team Chronic Disease Visit [facility] Start: 04-17-2025 BP Controlled (<130/80) BP Controlled (<130/80) [facility] Start: 04-12-2025 DIABETES SCREEN DIABETES SCREEN [facility] Start: 04-07-2025 BP Controlled (<130/80) BP Controlled (<130/80) [facility] Start: 04-07-2025 Complete blood count Hemoglobin/Hematocrit [facility] Start: 04-07-2025 Creatinine measurement Serum Creatinine [facility] Start: 03-15-2025 DIABETES SCREEN DIABETES SCREEN [facility] Start: 03-03-2025 Complete blood count Hemoglobin/Hematocrit [facility] Start: 03-03-2025 Creatinine measurement Serum Creatinine [facility] Start: 03-01-2025 End: 03-01-2025 Patient encounter procedure 03/01/2025 10:40 AM EST Office Visit Family Janelle [place] [address] [place] [address] Jane Baig, [employer]ARNISH [employer] [address] [place] [address] 6 month f/u/AWV [facility] Comment on above: 6 month f/u/AWV Start: 02-08-2025 DIABETES SCREEN DIABETES SCREEN [facility] Start: 02-03-2025 Complete blood count Hemoglobin/Hematocrit [facility] Start: 02-03-2025 Creatinine measurement Serum Creatinine [facility] Start: 01-10-2025 DIABETES SCREEN DIABETES SCREEN [facility] Start: 01-08-2025 End: 01-08-2025 ambulatory [facility] Comment on above: CBC/CMP. QMOCBC/CMP/ 3 MO OV Start: 12-30-2024 Complete blood count Hemoglobin/Hematocrit [facility] Start: 12-30-2024 Creatinine measurement Serum Creatinine [facility] Start: 12-22-2024 LIPID SCREEN LIPID SCREEN [facility] Start: 12-12-2024 DIABETES SCREEN DIABETES SCREEN [facility] Start: 12-10-2024 End: 12-10-2024 ambulatory 12/10/2024 10:00 AM EDT Results Only [facility] [address] [facility] [place] [address] CBC/CMP. [facility] Comment on above: CBC/CMP. Start: 12-07-2024 End: 12-07-2024 Specialty Pharmacy 12/07/2024 7:15 AM EDT Specialty Pharmacy [facility] [address] [place] [id number] [place] [address] Pharmacist, [facility] [address] [place] [phone] Refill - Imbruvica [30DS] L [facility] Comment on above: Refill - Imbruvica [30DS] [facility] Start: 12-01-2024 BP Controlled (<130/80) BP Controlled (<130/80) [facility] Start: 12-01-2024 Complete blood count Hemoglobin/Hematocrit [facility] Start: 12-01-2024 Creatinine measurement Serum Creatinine [facility] Start: 11-23-2024 DIABETES SCREEN DIABETES SCREEN [facility] Start: 11-17-2024 Annual PCP Team Chronic Disease Visit Annual PCP Team Chronic Disease Visit [facility] Start: 11-17-2024 Covid-19 Vaccine ( season) Covid-19 Vaccine ( season) [facility] Comment on above: Postponed from 10/27/2023 (Declined at t his time) Start: 11-17-2024 RSV Vaccine (1 - 1-dose 75+ series) RSV Vaccine (1 - 1-dose 75+ series) [facility] Comment on above: Postponed from 2020 (Declined at t his time) Start: 11-17-2024 Urine microalbumin profile DTaP,Tdap,Td Vaccine (1 - Tdap) [facility] Comment on above: Postponed from 1964 (Declined at t his time) Start: 11-10-2024 End: 11-10-2024 ambulatory 11/10/2024 10:15 AM EDT Results Only [facility] [address] [place] [address] CBC/CMP. [facility] Comment on above: CBC/CMP. Start: 11-05-2024 End: 11-05-2024 Specialty Pharmacy 11/05/2024 7:30 AM EDT Specialty Pharmacy [facility] [address] [address] Pharmacist, [facility] [address] [place] [address] [place] [address] Refill - Imbruvica [30DS] [facility] refill req 11/02 [facility] Comment on above: Refill - Imbruvica [30DS] [facility] refill req 11/02 Start: 11-02-2024 End: 11-02-2024 Specialty Pharmacy 11/02/2024 11:00 AM EDT Specialty Pharmacy [facility] [address] [place], [place] [id number] [place] [address] Pharmacist, [facility] [address] [place] [address] [place] [address] Refill - Imbruvica [30DS] [facility] Comment on above: Refill - Imbruvica [30DS] [facility] Start: 11-01-2024 DIABETES SCREEN DIABETES SCREEN [facility] Start: 10-30-2024 End: 10-30-2024 Patient encounter procedure 10/30/2024 1:40 PM EDT Office Visit Family [facility] [address] [place] [address] Jane Baig, VARNISH FILTERER[employer] [address] [place] [address] 4 week follow up- labs, depression, chest xray [facility] Comment on above: 4 week follow up- labs, depression, ches t xray Start: 10-28-2024 Complete blood count Hemoglobin/Hematocrit [facility] Start: 10-28-2024 Creatinine measurement Serum Creatinine [facility] Start: 10-26-2024 Influenza vaccination Influenza Vaccine (#1) [facility] Start: 10-09-2024 End: 10-09-2024 Patient encounter procedure 10/09/2024 1:00 PM EDT Office Visit Cardiology [address] [place] [address] Dx: JONES (dyspnea on exertion) [R06.09] Cardiology Comment on above: Dx: JONES (dyspnea on exertion) [R06.09] Start: 10-08-2024 End: 10-08-2024 ambulatory [facility] Comment on above: CBC/CMP 3 MO OV Start: 10-06-2024 Annual PCP Team Chronic Disease Visit Annual PCP Team Chronic Disease Visit [facility] Start: 10-05-2024 End: 10-05-2024 Specialty Pharmacy 10/05/2024 7:00 AM EDT Specialty Pharmacy [facility] [address] [place] [address] [id number] [place], [place] [id number] Pharmacist, [facility] [address] [place] [phone] Refill - Imbruvica [30DS] [facility] - [facility] Comment on above: Refill - Imbruvica [30DS] [facility] - Start: 10-04-2024 DIABETES SCREEN DIABETES SCREEN [facility] Start: 09-26-2024 Complete blood count Hemoglobin/Hematocrit [facility] Start: 09-26-2024 Creatinine measurement Serum Creatinine [facility] Start: 09-06-2024 DIABETES SCREEN DIABETES SCREEN [facility] Start: 09-03-2024 End: 09-03-2024 ambulatory [facility] Comment on above: CBC/CMP Refill - Imbruvica [ 30DS] [facility] - LVM 09/01 Start: 09-01-2024 End: 09-01-2024 Specialty Pharmacy 09/01/2024 11:00 AM EDT Specialty Pharmacy [facility] [id number] [place], [place] [id number] Pharmacist, [facility] [address] [place] [address] Refill - Imbruvica [30DS] [facility] Comment on above: Refill - Imbruvica [30DS] [facility] Start: 08-25-2024 End: 11-24-2024 LIPID PANEL, NONFASTING LIPID PANEL, NONFASTING Lab Routine Hyperlipidemia, unspecified hyperlipidemia type Expected: 08/25/2024, Expires: 11/24/2024 [facility] Comment on above: Expected: 08/25/2024, Expires: Start: 08-25-2024 End: 11-24-2024 Magnesium [Mass/volume] in Serum or Plasma MAGNESIUM Lab Routine Gastroesophageal reflux disease, unspecified whether esophagitis present Expected: 08/25/2024, Expires: 11/24/2024 [facility] Comment on above: Expected: 08/25/2024, Expires: Start: 08-25-2024 End: 11-24-2024 Thyrotropin [Units/volume] in Serum or Plasma THYROID STIMULATING HORMONE Lab Routine Hypothyroidism due to acquired atrophy of thyroid Expected: 08/25/2024, Expires: 11/24/2024 [facility] Work Phone: Comment on above: Expected: 08/25/2024, Expires: Start: 08-25-2024 End: 11-24-2024 Thyroxine (T4) free [Mass/volume] in Serum or Plasma T4 FREE/FREE THYROXINE Lab Routine Hypothyroidism due to acquired atrophy of thyroid Expected: 08/25/2024, Expires: 11/24/2024 [facility] Comment on above: Expected: 08/25/2024, Expires: Start: 08-25-2024 End: 08-25-2024 Patient encounter procedure [facility] Medicine [facility] Comment on above: 3 month f/u 3 month f/u/AWV Start: 08-19-2024 Complete blood count Hemoglobin/Hematocrit [facility] Start: 08-19-2024 Creatinine measurement Serum Creatinine [facility] Start: 08-10-2024 End: 08-10-2024 Specialty Pharmacy 08/10/2024 11:00 AM EDT Specialty Pharmacy [facility] [address] [place] [address] [address] [place] [address] Pharmacist, [facility] [address] [place] [address] Refill - Imbruvica [30DS] [facility] Comment on above: Refill - Imbruvica [30DS] [facility] Start: 08-08-2024 DIABETES SCREEN DIABETES SCREEN [facility] Start: 08-06-2024 End: 08-06-2024 ambulatory 08/06/2024 10:00 AM EDT Results Only [facility]razaswn [facility] [address] [place] [address] CBC/CMP [facility] Comment on above: CBC/CMP Start: 07-16-2024 Complete blood count Hemoglobin/Hematocrit [facility] Start: 07-16-2024 Creatinine measurement Serum Creatinine [facility] Start: 07-14-2024 Annual PCP Team Chronic Disease Visit Annual PCP Team Chronic Disease Visit [facility] Start: 07-14-2024 BP Controlled (<130/80) BP Controlled (<130/80) [facility] Start: 07-11-2024 DIABETES SCREEN DIABETES SCREEN [facility] Start: 07-09-2024 End: 07-09-2024 Specialty Pharmacy 07/09/2024 11:00 AM EDT Specialty Pharmacy [facility] [address] [place] [address] Pharmacist, [facility] [address] [place] [address] [place] [address] Refill - Imbruvica [30DS] [facility] Comment on above: Refill - Imbruvica [30DS] [facility] Start: 07-08-2024 End: 07-08-2024 ambulatory [facility] Comment on above: CBC/CMP 3 MO OV QMO/CBC/CMP* 3MO OV/EARLY LABS* QMO CBC/CMP(S)* Start: 06-25-2024 Complete blood count Hemoglobin/Hematocrit [facility] Start: 06-25-2024 Creatinine measurement Serum Creatinine [facility] Start: 06-13-2024 DIABETES SCREEN DIABETES SCREEN [facility] Start: 06-10-2024 Annual PCP Team Chronic Disease Visit Annual PCP Team Chronic Disease Visit [facility] Start: 06-10-2024 BP Controlled (<130/80) BP Controlled (<130/80) [facility] Start: 06-10-2024 End: 06-10-2024 Specialty Pharmacy 06/10/2024 11:00 AM EDT Specialty Pharmacy [facility] [address] [place] [address] Pharmacist, [facility] [address] [place] [address] [place] [address] Refill - Imbruvica [30DS] [facility] Comment on above: Refill - Imbruvica [30DS] [facility] Start: 06-05-2024 End: 06-05-2024 ambulatory [facility] Comment on above: CBC/CMP QMO/CBC/CMP* [facility] CBC/CMP(S)* Start: 05-26-2024 Complete blood count Hemoglobin/Hematocrit [facility] Start: 05-26-2024 Creatinine measurement Serum Creatinine [facility] Start: 05-16-2024 DIABETES SCREEN DIABETES SCREEN [facility] Start: 05-11-2024 End: 05-11-2024 Specialty Pharmacy 05/11/2024 11:00 AM EDT Specialty Pharmacy [facility] [address] [place] [phone] Pharmacist, [facility] [address] [place] [address] Refill - Imbruvica [30DS] [facility] Comment on above: Refill - Imbruvica [30DS] HW Start: 05-08-2024 End: 05-08-2024 Specialty Pharmacy 05/08/2024 11:00 AM EDT Specialty Pharmacy [facility] [address] [place] [phone] Pharmacist, [facility] [address] [place] [address] Refill - Imbruvica [30DS] HW [facility] Comment on above: Refill - Imbruvica [30DS] [facility] Start: 05-05-2024 End: 05-05-2024 [facility] Comment on above: CBC/CMP QMO/CBC/CMP* Start: 04-28-2024 Complete blood count Hemoglobin/Hematocrit [facility] Start: 04-28-2024 Creatinine measurement Serum Creatinine [facility] Start: 04-27-2024 End: 07-27-2024 Bacteria identified in Urine by Culture BACTERIAL CULTURE, URINE Microbiology Routine Recurrent UTI (urinary tract infection) Expected: 04/27/2024, Expires: 07/27/2024 [facility] Work Phone: Comment on above: Expected: 04/27/2024, Expires: Start: 04-10-2024 Annual PCP Team Chronic Disease Visit Annual PCP Team Chronic Disease Visit [facility] Start: 04-08-2024 End: 04-08-2024 Specialty Pharmacy 04/08/2024 11:00 AM EST Specialty Pharmacy [facility] [address] [place], [place] [phone] Pharmacist, [facility] [address] [place] [address] [place] [address] Refill - Imbruvica [30DS] [facility] Comment on above: Refill - Imbruvica [30DS] [facility] Start: 04-07-2024 End: 04-07-2024 [facility] Comment on above: CBC/CMP 3 MO OV *CBC/CMP CBC/CMP(S) LAB EARLY/3 MO OV* Start: 04-06-2024 End: 04-06-2024 Specialty Pharmacy 04/06/2024 11:00 AM EST Specialty Pharmacy [facility] [address] [place] [address] Pharmacist, [facility] [address] [place] [address] [place] [address] Refill - Imbruvica [30DS] [facility] - RFTS 04/04 [facility] Comment on above: Refill - Imbruvica [30DS] [facility] - [facility] Start: 04-03-2024 End: 04-03-2024 Specialty Pharmacy 04/03/2024 11:00 AM EST Specialty Pharmacy [facility] [address] [place] [address] Pharmacist, [facility] [address] [place] [address] [place] [address] Refill - Imbruvica [30DS] [facility] Comment on above: Refill - Imbruvica [30DS] [facility] Start: 04-01-2024 Complete blood count Hemoglobin/Hematocrit [facility] Start: 04-01-2024 Creatinine measurement Serum Creatinine [facility] Start: 03-11-2024 Annual PCP Team Chronic Disease Visit Annual PCP Team Chronic Disease Visit [facility] Start: 03-11-2024 Complete blood count Hemoglobin/Hematocrit [facility] Start: 03-03-2024 End: 03-03-2024 ambulatory [facility] Comment on above: CBC/CMP CBC/CMP(S) Start: 02-26-2024 Advance Directive Discussion Advance Directive Discussion [facility] Start: 02-04-2024 End: 02-04-2024 ambulatory 02/04/2024 10:00 AM EST Results Only [facility] Terrazaswn [facility] [address] [place] [address] CBC/CMP Cristofer Rice [facility] Comment on above: CBC/CMP Start: 01-26-2024 Hemoglobin/Hematocrit Hemoglobin/Hematocrit [facility] Start: 01-26-2024 Serum Creatinine Serum Creatinine [facility] Start: 12-31-2023 End: 12-31-2023 ambulatory [facility] [place] [facility] Comment on above: CBC/CMP 3 MO OV *CBC/CMP CBC/CMP(S)* LAB EARLY/3 MO OV* Start: 12-29-2023 Hemoglobin/Hematocrit Hemoglobin/Hematocrit [facility] Start: 12-29-2023 Serum Creatinine Serum Creatinine [facility] Start: 12-02-2023 End: 12-02-2023 ambulatory 12/02/2023 10:15 AM EDT Results Only [facility] Zengn [facility] [address] [place] [address] CBC/CMP Felthien [place] [facility] Comment on above: CBC/CMP Start: 12-01-2023 Hemoglobin/Hematocrit Hemoglobin/Hematocrit [facility] Start: 12-01-2023 Serum Creatinine Serum Creatinine [facility] Start: 11-27-2023 End: 11-27-2023 ambulatory 11/27/2023 10:00 AM EDT Results Only [facility] Zengn [facility] [address] [place] [address] CBC/CMP Cristofer [place] [facility] Comment on above: CBC/CMP Start: 11-18-2023 End: 11-18-2023 Patient encounter procedure 11/18/2023 9:40 AM EDT Office Visit Family Medicine [facility] [address] [place] [address] Jane Baig, VARNISH FILTERER.[employer] [address] [place] [address] 1 month follow up Family Medicine [facility] Comment on above: 1 month follow up Start: 11-07-2023 Annual PCP Team Chronic Disease Visit Annual PCP Team Chronic Disease Visit [facility] Start: 11-07-2023 Covid-19 Vaccine ( season) Covid-19 Vaccine () [facility] Comment on above: Postponed from 10/26/2022 (Declined at t his time) Start: 11-07-2023 Covid-19 Vaccine (4 - Pfizer risk series) Covid-19 Vaccine (4 - Pfizer risk series) [facility] Comment on above: Postponed from 12/16/2020 (Declined at t his time) Start: 11-07-2023 End: 02-06-2024 Thyrotropin [Units/volume] in Serum or Plasma THYROID STIMULATING HORMONE Lab Routine Hypothyroidism due to acquired atrophy of thyroid Expected: 11/07/2023, Expires: 02/06/2024 [facility] Work Phone: Comment on above: Expected: 11/07/2023, Expires: Start: 11-07-2023 Urine microalbumin profile DTaP,Tdap,Td Vaccine (1 - Tdap) [facility] Comment on above: Postponed from 1964 (Insurance Cov erage) Start: 11-03-2023 Hemoglobin/Hematocrit Hemoglobin/Hematocrit [facility] Start: 11-03-2023 Serum Creatinine Serum Creatinine [facility] Start: 10-29-2023 End: 10-29-2023 ambulatory Cristofer [facility] Comment on above: CBC/CMP CBC/CMP(S)* Start: 10-27-2023 Covid-19 Vaccine () Covid-19 Vaccine () [facility] Start: 10-27-2023 Influenza vaccination Influenza Vaccine (#1) [facility] Start: 10-09-2023 ANNUAL PCP TEAM CHRONIC DISEASE VISIT ANNUAL PCP TEAM CHRONIC DISEASE VISIT [facility] Start: 10-09-2023 End: 10-09-2023 Patient encounter procedure 10/09/2023 11:20 AM EDT Office Visit Family Medicine Cristofer [address] [facility] [place] [address] Jane Baig, ERA.[employer]ER [address] [place] [address] 1 month follow up Family Janelle [facility] Comment on above: 1 month follow up Start: 10-07-2023 End: 10-07-2023 Patient encounter procedure 10/07/2023 10:20 AM EDT Office Visit Family Medicine Cristofer [address] [place] [address] Jane aBig, ERA.[employer] W[employer] [address] [place] [address] 1 month follow up-sores on legs Family [facility]elle [facility] Comment on above: 1 month follow up-sores on legs Start: 10-06-2023 HEMOGLOBIN/HEMATOCRIT HEMOGLOBIN/HEMATOCRIT [facility] Start: 10-06-2023 SERUM CREATININE SERUM CREATININE [facility] Start: 10-04-2023 ANNUAL PCP TEAM CHRONIC DISEASE VISIT ANNUAL PCP TEAM CHRONIC DISEASE VISIT [facility] Start: 09-27-2023 End: 09-27-2023 ambulatory Felt Rice [facility] Comment on above: CBC/CMP(S)* 3 MO OV/LABS EARLY* Start: 09-18-2023 End: 12-18-2023 Thyrotropin [Units/volume] in Serum or Plasma THYROID STIMULATING HORMONE Lab Routine Hypothyroidism due to acquired atrophy of thyroid Expected: 09/18/2023, Expires: 12/18/2023 [facility] Work Phone: Comment on above: Expected: 09/18/2023, Expires: Start: 09-08-2023 BP CONTROLLED (<130/80) BP CONTROLLED (<130/80) [facility] in Start: 09-08-2023 HEMOGLOBIN/HEMATOCRIT HEMOGLOBIN/HEMATOCRIT [facility] Start: 09-08-2023 SERUM CREATININE SERUM CREATININE [facility] Start: 09-04-2023 End: 12-04-2023 Bacteria identified in Urine by Culture URINE CULTURE Microbiology Routine Malodorous urine Expected: 09/04/2023, Expires: 12/04/2023 [facility] Comment on above: Expected: 09/04/2023, Expires: 4 Start: 09-04-2023 End: 12-04-2023 Urinalysis complete panel - Urine URINALYSIS, WITH MICROSCOPIC Lab Routine Malodorous urine Expected: 09/04/2023, Expires: 12/04/2023 [facility] Work Phone: Comment on above: Expected: 09/04/2023, Expires: 4 Start: 08-27-2023 End: 08-27-2023 ambulatory [facility] Comment on above: CBC/CMP(S)* 3 MO OV/LABS EARLY* Start: 08-26-2023 End: 11-25-2023 Thyrotropin [Units/volume] in Serum or Plasma THYROID STIMULATING HORMONE Lab Routine Abnormal thyroid function test Expected: 08/26/2023, Expires: 11/25/2023 [facility] Comment on above: Expected: 08/26/2023, Expires: Start: 08-26-2023 End: 11-25-2023 Thyroxine (T4) free [Mass/volume] in Serum or Plasma T4 FREE/FREE THYROXINE Lab Routine Abnormal thyroid function test Expected: 08/26/2023, Expires: 11/25/2023 [facility] Comment on above: Expected: 08/26/2023, Expires: Start: 08-20-2023 End: 08-20-2023 ambulatory 08/20/2023 10:15 AM EDT Results Only Cristofer Rice [facility] [address] [place] [address] CBC/CMP(S)* [facility] Comment on above: CBC/CMP(S)* Start: 08-17-2023 HEMOGLOBIN/HEMATOCRIT HEMOGLOBIN/HEMATOCRIT [facility] Start: 08-17-2023 SERUM CREATININE SERUM CREATININE [facility] Start: 08-14-2023 End: 08-14-2023 Patient encounter procedure 08/14/2023 8:00 AM EDT Appointment Radiology [address] [place] [address] Transient cerebral ischemia, unspecified type [G45.9] Radiology Comment on above: Transient cerebral ischemia, unspecified type [G45.9] Start: 08-02-2023 End: 08-02-2023 Patient encounter procedure 08/02/2023 10:00 AM EDT Office Visit Vasculary Surgery [address] [place] [address] Syncope, unspecified syncope type [R55] [facility] Comment on above: Syncope, unspecified syncope type [R55] Start: 07-30-2023 End: 07-30-2023 ambulatory 07/30/2023 10:45 AM EDT Results Only Cristofer [place] [facility] [address] [place] [address] CBC/CMP(S)* Felt Rice [facility] Comment on above: CBC/CMP(S)* Start: 07-17-2023 End: 07-17-2023 ambulatory 07/17/2023 10:30 AM EDT Visit (SP) Office Hematology/Oncology [address] [place] [address] Cristina Taylor APRN.[employer] [address] [place] [address] OV/HOSP DISCHARGE [facility] 07/10* Hematology/Oncology Comment on above: OV/HOSP DISCHARGE [facility] 07/10* Start: 06-22-2023 HEMOGLOBIN/HEMATOCRIT HEMOGLOBIN/HEMATOCRIT [facility] Start: 06-08-2023 BP CONTROLLED (<130/80) BP CONTROLLED (<130/80) [facility] Start: 06-08-2023 HEMOGLOBIN/HEMATOCRIT HEMOGLOBIN/HEMATOCRIT [facility] Start: 06-08-2023 SERUM CREATININE SERUM CREATININE [facility] Start: 05-11-2023 HEMOGLOBIN/HEMATOCRIT HEMOGLOBIN/HEMATOCRIT [facility] Start: 05-11-2023 SERUM CREATININE SERUM CREATININE [facility] Start: 05-08-2023 ANNUAL PCP TEAM CHRONIC DISEASE VISIT ANNUAL PCP TEAM CHRONIC DISEASE VISIT [facility] Start: 05-08-2023 BP CONTROLLED (<130/80) BP CONTROLLED (<130/80) [facility] Start: 02-16-2024 HEMOGLOBIN/HEMATOCRIT HEMOGLOBIN/HEMATOCRIT [facility] Start: 04-12-2023 SERUM CREATININE SERUM CREATININE [facility] Start: 03-15-2023 HEMOGLOBIN/HEMATOCRIT HEMOGLOBIN/HEMATOCRIT [facility] Start: 03-15-2023 SERUM CREATININE SERUM CREATININE [facility] Start: 02-25-2023 Advance Directive Discussion Advance Directive Discussion [facility] Start: 02-09-2023 ANNUAL PCP TEAM CHRONIC DISEASE VISIT ANNUAL PCP TEAM CHRONIC DISEASE VISIT [facility] Start: 02-09-2023 BP CONTROLLED (<130/80) BP CONTROLLED (<130/80) [facility] in Start: 02-08-2023 HEMOGLOBIN/HEMATOCRIT HEMOGLOBIN/HEMATOCRIT [facility] Start: 02-08-2023 SERUM CREATININE SERUM CREATININE [facility] Start: 01-10-2023 HEMOGLOBIN/HEMATOCRIT HEMOGLOBIN/HEMATOCRIT [facility] Start: 01-10-2023 SERUM CREATININE SERUM CREATININE [facility] Start: 12-12-2022 BP CONTROLLED (<130/80) BP CONTROLLED (<130/80) [facility] Start: 12-12-2022 HEMOGLOBIN/HEMATOCRIT HEMOGLOBIN/HEMATOCRIT [facility] Start: 12-12-2022 SERUM CREATININE SERUM CREATININE [facility] Start: 11-23-2022 ANNUAL PCP TEAM CHRONIC DISEASE VISIT ANNUAL PCP TEAM CHRONIC DISEASE VISIT [facility] Start: 11-23-2022 HEMOGLOBIN/HEMATOCRIT HEMOGLOBIN/HEMATOCRIT [facility] Start: 11-23-2022 SERUM CREATININE SERUM CREATININE [facility] Start: 11-10-2022 ANNUAL PCP TEAM CHRONIC DISEASE VISIT ANNUAL PCP TEAM CHRONIC DISEASE VISIT [facility] Start: 11-06-2022 ANNUAL PCP TEAM CHRONIC DISEASE VISIT ANNUAL PCP TEAM CHRONIC DISEASE VISIT [facility] Start: 11-01-2022 HEMOGLOBIN/HEMATOCRIT HEMOGLOBIN/HEMATOCRIT [facility] Start: 11-01-2022 SERUM CREATININE SERUM CREATININE [facility] Start: 10-26-2022 Influenza vaccination INFLUENZA (#1) [facility] Start: 10-04-2022 HEMOGLOBIN/HEMATOCRIT HEMOGLOBIN/HEMATOCRIT [facility] Start: 10-04-2022 SERUM CREATININE SERUM CREATININE [facility] Start: 10-03-2022 End: 12-03-2022 CBC W Auto Differential panel - Blood CBC + DIFF Lab Routine Essential hypertension, benign Anemia, unspecified type Expected: 10/03/2022, Expires: 12/03/2022 [facility] Work Phone: Comment on above: Expected: 10/03/2022, Expires: 3 Start: 10-03-2022 End: 12-03-2022 Comprehensive metabolic 2000 panel - Serum or Plasma COMP METABOLIC PANEL Lab Routine Essential hypertension, benign Expected: 10/03/2022, Expires: 12/03/2022 [facility] Work Phone: Comment on above: Expected: 10/03/2022, Expires: 3 Start: 10-03-2022 End: 12-03-2022 LIPID PANEL, NONFASTING LIPID PANEL, NONFASTING Lab Routine Hyperlipidemia, unspecified hyperlipidemia type Expected: 10/03/2022, Expires: 12/03/2022 [facility] Work Phone: Comment on above: Expected: 10/03/2022, Expires: 3 Start: 10-03-2022 End: 12-03-2022 Magnesium [Mass/volume] in Serum or Plasma MAGNESIUM BLD Lab Routine Gastroesophageal reflux disease, unspecified whether esophagitis present Expected: 10/03/2022, Expires: 12/03/2022 [facility] Work Phone: Comment on above: Expected: 10/03/2022, Expires: 3 Start: 10-03-2022 End: 12-03-2022 Thyrotropin [Units/volume] in Serum or Plasma TSH BLD Lab Routine 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 Expected: 10/03/2022, Expires: 12/03/2022 [facility] Work Phone: Comment on above: Expected: 10/03/2022, Expires: 3 Start: 10-03-2022 End: 12-03-2022 Thyroxine (T4) free [Mass/volume] in Serum or Plasma T4 FREE/FREE THYROX Lab Routine 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 Expected: 10/03/2022, Expires: 12/03/2022 [facility] Work Phone: Comment on above: Expected: 10/03/2022, Expires: 3 Start: 09-15-2022 ANNUAL PCP TEAM CHRONIC DISEASE VISIT ANNUAL PCP TEAM CHRONIC DISEASE VISIT [facility] Start: 09-15-2022 BP CONTROLLED (<130/80) BP CONTROLLED (<130/80) [facility] Start: 09-06-2022 SERUM CREATININE SERUM CREATININE [facility] Start: 08-08-2022 HEMOGLOBIN/HEMATOCRIT HEMOGLOBIN/HEMATOCRIT [facility] Start: 08-08-2022 SERUM CREATININE SERUM CREATININE [facility] Start: 07-27-2022 BP CONTROLLED (<130/80) BP CONTROLLED (<130/80) [facility] Start: 07-11-2022 HEMOGLOBIN/HEMATOCRIT HEMOGLOBIN/HEMATOCRIT [facility] Start: 07-11-2022 SERUM CREATININE SERUM CREATININE [facility] Start: 06-13-2022 ANNUAL PCP TEAM CHRONIC DISEASE VISIT ANNUAL PCP TEAM CHRONIC DISEASE VISIT [facility] Start: 06-13-2022 HEMOGLOBIN/HEMATOCRIT HEMOGLOBIN/HEMATOCRIT [facility] Start: 06-13-2022 SERUM CREATININE SERUM CREATININE [facility] Start: 05-16-2022 HEMOGLOBIN/HEMATOCRIT HEMOGLOBIN/HEMATOCRIT [facility] Start: 05-16-2022 SERUM CREATININE SERUM CREATININE [facility] Start: 04-06-2022 ANNUAL PCP TEAM CHRONIC DISEASE VISIT ANNUAL PCP TEAM CHRONIC DISEASE VISIT [facility] Start: 02-25-2022 ADVANCE DIRECTIVE DISCUSSION ADVANCE DIRECTIVE DISCUSSION [facility] Start: 01-29-2022 End: 03-31-2022 Thyrotropin [Units/volume] in Serum or Plasma TSH BLD Lab Routine 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 Expected: 01/29/2022, Expires: 03/31/2022 [facility] Work Phone: Comment on above: Expected: 01/29/2022, Expires: 3 Start: 01-29-2022 End: 03-31-2022 Thyroxine (T4) free [Mass/volume] in Serum or Plasma T4 FREE/FREE THYROX Lab Routine 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 Expected: 01/29/2022, Expires: 03/31/2022 [facility] Work Phone: Comment on above: Expected: 01/29/2022, Expires: 3 Start: 01-29-2022 End: 03-31-2022 Triiodothyronine (T3) [Mass/volume] in Serum or Plasma T3 BLD Lab Routine 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 Expected: 01/29/2022, Expires: 03/31/2022 [facility] Work Phone: Comment on above: Expected: 01/29/2022, Expires: 3 Start: 12-13-2021 BP CONTROLLED (<130/80) BP CONTROLLED (<130/80) [facility] Start: 11-29-2021 End: 11-29-2022 CBC W Auto Differential panel - Blood CBC + DIFF Lab Routine Anemia, unspecified type Expected: 11/29/2021, Expires: 11/29/2022 [facility] Work Phone: Comment on above: Expected: 11/29/2021, Expires: 3 Start: 11-29-2021 End: 11-29-2022 Cobalamin (Vitamin B12) [Mass/volume] in Serum or Plasma VITAMIN B12 BLOOD Lab Routine Anemia, unspecified type Expected: 11/29/2021, Expires: 11/29/2022 [facility] Work Phone: Comment on above: Expected: 11/29/2021, Expires: 3 Start: 11-29-2021 End: 11-29-2022 Ferritin [Mass/volume] in Serum or Plasma FERRITIN BLD Lab Routine Anemia, unspecified type Expected: 11/29/2021, Expires: 11/29/2022 [facility] Work Phone: Comment on above: Expected: 11/29/2021, Expires: 3 Start: 11-29-2021 End: 11-29-2022 Folate [Mass/volume] in Serum or Plasma FOLATE SERUM Lab Routine Anemia, unspecified type Expected: 11/29/2021, Expires: 11/29/2022 [facility] Work Phone: Comment on above: Expected: 11/29/2021, Expires: 3 Start: 11-29-2021 End: 11-29-2022 Hemoglobin.gastrointestin al.lower [Presence] in Stool by Immunoassay FECAL OCCULT BLOOD TEST Lab Routine Anemia, unspecified type Expected: 11/29/2021, Expires: 11/29/2022 [facility] Work Phone: Comment on above: Expected: 11/29/2021, Expires: 3 Start: 11-29-2021 End: 11-29-2022 Iron and Iron binding capacity panel - Serum or Plasma IRON + TIBC Lab Routine Anemia, unspecified type Expected: 11/29/2021, Expires: 11/29/2022 [facility] Work Phone: Comment on above: Expected: 11/29/2021, Expires: 3 Start: 11-29-2021 End: 11-29-2022 RETIC COUNT RETIC COUNT Lab Routine Anemia, unspecified type Expected: 11/29/2021, Expires: 11/29/2022 [facility] Work Phone: Comment on above: Expected: 11/29/2021, Expires: 3 Start: 11-23-2021 End: 01-23-2022 Comprehensive metabolic 2000 panel - Serum or Plasma [facility] Work Phone: Comment on above: Expected: 11/23/2021, Expires: 2 Start: 11-07-2021 [facility] Work Phone: Start: 11-07-2021 [facility] Work Phone: Start: 11-07-2021 [facility] Work Phone: Start: 10-26-2021 Influenza vaccination INFLUENZA (#1) [facility] Start: 09-01-2021 Patient discharge [facility] Work Phone: Start: 08-31-2021 Following clinical pathway protocol [facility] Work Phone: Start: 08-31-2021 Ambulation without limitation [facility] Work Phone: Start: 08-31-2021 Assessment of risk of venous thromboembolism [facility] Work Phone: Start: 08-31-2021 Insertion of catheter into peripheral vein [facility] Work Phone: Start: 08-31-2021 Measuring intake and output [facility] Work Phone: Start: 08-31-2021 Providing care according to standard [facility] Work Phone: Start: 08-31-2021 [facility] Work Phone: Start: 08-31-2021 Chemotherapy care management [facility] Work Phone: Start: 08-31-2021 Troponin I measurement [facility] Work Phone: Start: 08-31-2021 Verification routine [facility] Work Phone: Start: 08-31-2021 Admission procedure [facility] Work Phone: Start: 08-31-2021 End: 08-31-2021 [facility] Work Phone: Start: 08-08-2021 End: 10-08-2021 CBC W Auto Differential panel - Blood CBC + DIFF Lab STAT CLL (chronic lymphocytic leukemia) (HCC) Expected: 08/08/2021, Expires: 10/08/2021 [facility] Work Phone: Comment on above: Expected: 08/08/2021, Expires: 2 Start: 08-08-2021 End: 10-08-2021 Comprehensive metabolic 2000 panel - Serum or Plasma COMP METABOLIC PANEL Lab Routine CLL (chronic lymphocytic leukemia) (HCC) Expected: 08/08/2021, Expires: 10/08/2021 [facility] Work Phone: Comment on above: Expected: 08/08/2021, Expires: 2 Start: 06-20-2021 End: 06-13-2022 Echocardiography ECHO Cardiology Routine Chronic fatigue SOB (shortness of breath) Expected: 06/20/2021 (Approximate), Expires: 06/13/2022 [facility] Work Phone: Comment on above: Expected: 06/20/2021 (Approximate), Expi res: 06/13/2022 Start: 02-25-2021 ADVANCE DIRECTIVE DISCUSSION ADVANCE DIRECTIVE DISCUSSION [facility] Start: 01-21-2021 COVID-19 VACCINE (4 - Booster for Pfizer series) COVID-19 VACCINE (4 - Booster for Pfizer series) [facility] Start: 01-13-2021 COVID-19 VACCINE (4 - Booster for Pfizer series) COVID-19 VACCINE (4 - Booster for Pfizer series) [facility] Start: 12-16-2020 COVID-19 VACCINE (4 - Booster for Pfizer series) COVID-19 VACCINE (4 - Booster for Pfizer series) [facility] Start: 12-16-2020 COVID-19 VACCINE (4 - Pfizer risk series) COVID-19 VACCINE (4 - Pfizer risk series) [facility] Start: 11-25-2014 Medicare Annual Wellness Visit Medicare Annual Wellness Visit [facility] Start: 10-28-2014 FECAL OCCULT BLOOD FECAL OCCULT BLOOD [facility] Start: 2005 RSV Vaccine (1 - 1-dose 60+ series) RSV Vaccine (1 - 1-dose 60+ series) [facility] Start: 1990 COLOGUARD (FIT-DNA) COLOGUARD (FIT-DNA) [facility] Start: [address] COLONOGRAPHY [facility] Start: 1990 SIGMOIDOSCOPY SIGMOIDOSCOPY [facility] Start: 1964 Urine microalbumin profile [facility] Start: 09-23-1951 PNEUMOCOCCAL: 65+ (1 - PCV) PNEUMOCOCCAL: 65+ (1 - PCV) [facility] Bacteria identified in Urine by Culture Urine Culture [facility] Work Phone: Bacteria identified in Urine by Culture URINE CULTURE Microbiology Routine Fatigue, unspecified type 10/03/2022 3:59 PM EDT [facility] Work Phone: Bacteria identified in Urine by Culture URINE CULTURE Microbiology Routine Acute cystitis without hematuria 06/11/2023 3:39 PM EDT [facility] Work Phone: Bacteria identified in Urine by Culture URINE CULTURE Microbiology Routine Burning with urination 12/02/2023 12:25 PM EDT [facility] Work Phone: Bacteria identified in Urine by Culture BACTERIAL CULTURE, URINE Microbiology Routine Dysuria 04/17/2024 12:02 PM EST [facility] Work Phone: Bacteria identified in Urine by Culture BACTERIAL CULTURE, URINE Microbiology Routine UTI symptoms 08/25/2024 10:51 AM EDT [facility] COVID & INFLUENZA A/ B & RSV PCR, ROUTINE COVID & INFLUENZA A/B & RSV PCR, ROUTINE Microbiology Routine Flu-like symptoms Acute upper respiratory infection, unspecified 04/02/2024 7:14 PM EST [facility] Work Phone: End: 08-13-2024 MR Brain WO contrast MRI BRAIN WO IVCON Radiology Routine Transient cerebral ischemia, unspecified type 1 Occurrences starting 07/15/2023 until 08/13/2024 [facility] Work Phone: Comment on above: 1 Occurrences starting 07/15/2023 until 08/13/2024 Patient Education [facility] Work Phone: Patient referral [facility] Work Phone: Troponin I measurement [facility] Work Phone: Urine culture Urine Culture [facility] Work Phone: End: 07-14-2024 US Carotid arteries - bilateral US CAROTID ARTERIES [facility] Vascular Lab Routine Syncope, unspecified syncope type 1 Occurrences starting 07/15/2023 until 07/14/2024 [facility] Comment on above: 1 Occurrences starting 07/15/2023 until 07/14/2024 End: 11-05-2024 XR Finger - left AP and Lateral and oblique XR DIGIT GENERAL 3V FRONTAL/LAT/OBL LEFT Radiology Routine Finger pain, left 1 Occurrences starting 10/07/2023 until 11/05/2024 [facility] Work Phone: Comment on above: 1 Occurrences starting 10/07/2023 until 11/05/2024 XR Finger - left AP and Lateral and oblique XR DIGIT GENERAL 3V FRONTAL/LAT/OBL LEFT Radiology Routine Finger pain, left 10/07/2023 11:33 AM EDT [facility] Immunizations Immunization Date Immunization Notes Care Provider J[facility]ior [facility] 11-18-2023 influenza, high dose seasonal, preservative-free Jane Haagen VARNISH FILTERER.[employer] Work Phone: [facility] 11-18-2023 influenza virus vacc ine, unspecified formulation Jane Haagen VARNISH FILTERER.[employer] Work Phone: [facility] 11-06-2022 influenza (HD-IIV4) vaccine, age 65+ yr, high dose, quadrivalent, PF (FLUZONE HIGH-DOSE) Janet Duran [facility] 11-06-2022 influenza virus vacc ine, unspecified formulation Jane Haagen VARNISH FILTERER.[employer] Work Phone: [facility] 11-01-2021 influenza (HD-IIV4) vaccine, age 65+ yr, high dose, quadrivalent, PF (FLUZONE HIGH-DOSE) Janet Duran [facility] 12-13-2020 influenza, high-dose , quadrivalent vaccine (FLUZONE HIGH DOSE QUADRIVALENT) Alejo Salas DO Work Phone: [facility] 11-25-2019 influenza, high dose seasonal, preservative-free Alejo Ramirezi DO Work Phone: [facility] 06-29-2019 zoster vaccine recombinant Alejo Salas DO Work Phone: [facility] 05-06-2019 pneumococcal conjuga te vaccine, 13 valent Alejo Ramirezi DO Work Phone: [facility] 02-09-2019 zoster vaccine recombinant Alejo Salas DO Work Phone: [facility] 12-09-2018 Seasonal trivalent influenza vaccine, adjuvanted, preservative free Trenton Taylor [employer] FILTERER.[employer] Work Phone: [facility] 11-22-2017 Seasonal trivalent influenza vaccine, adjuvanted, preservative free Trenton Taylor [employer]ARNISH FILTERER.[employer] Work Phone: [facility] 01-02-2017 zoster vaccine, live Alejo Bullock sci DO Work Phone: [facility] 12-09-2016 Influenza virus vaccine PROCESS PROJECT ENGINEER-C Urban Kruger PROCESS PROJECT ENGINEER Work Phone: [facility] [facility] 11-02-2016 Seasonal trivalent influenza vaccine, adjuvanted, preservative free Cristina Taylor VARNISH FILTERER.GOLF BALL WINDER Work Phone: [facility] 04-19-2016 influenza, seasonal, injectable Alejo Salas DO Work Phone: [facility] 11-22-2014 influenza, seasonal, injectable Alejo Ramirezi DO Work Phone: [facility] 11-18-2013 pneumococcal polysaccharide vaccine, 23 valent Alejo Ramirezi DO Work Phone: [facility] 07-07-2012 zoster vaccine, live Alejo Ma sci DO Work Phone: [facility] 11-25-2011 pneumococcal polysaccharide vaccine, 23 valent Cathy Lawton RN [facility] 01-10-2009 novel influenza-H1N1 -09, preservative-free, injectable Cristina Taylor VARNISH FILTERER.GOLF BALL WINDER Work Phone: [facility] 03-26-2007 influenza virus vacc ine, unspecified formulation Alejo Salas DO Work Phone: [facility] Work Phone: 01-07-2006 influenza virus vacc ine, unspecified formulation Alejo Salas DO Work Phone: [facility] Work Phone: Payers Date Payer Category Payer Self-pay [id number] 2014 Medicare MEDICARE MEDICAR E A AND B [id number] 2014-Present [phone] [address] [address] [place] [address] Medicare [id number] 2014 Medicare [id number] 2014 Private Health Insurance [employer] A ETNA MEDICARE SUPPLEMENT [id number] 2014-Present [phone] [address] [address] [place] [address] Indemnity [id number] 2014 Private Health Insurance [id number] 2014 Medicare [id number] 2014 Medicare [id number] 2003 Private Health Insurance [facility] [id number] 1945 Unknown [id number] 1945 Unknown [id number] 1945 Unknown [id number] 1945 Unknown [id number] Unknown [id number] Social History Date Type Detail Facility Start: 08-10-2020 End: 02-09-2022 Tobacco smoking status NHIS Ex-smoker [facility] History of tobacco use Cigarette Smoker [facility] Start: 05-16-2021 End: 08-25-2024 Alcohol intake Current non-drinker of alcohol (finding) [facility] Start: 03-21-2020 End: 02-09-2022 Tobacco Comment None since age 20s. No smoking in childhood home. Spouse of 56 years stopped smoking 1974. [facility] Start: 1945 Sex Assigned At Female C [facility] Start: 01-10-2020 End: 11-29-2021 Exposure to SARS-CoV-2 (event) Not sure [facility] Start: 07-05-2021 End: 06-29-2022 Tobacco smoking status NMIS Unknown if ever smoked [facility] Start: 08-19-2020 Homeless [facility] History of tobacco use Current smoker [facility] Start: 08-10-2020 End: 02-09-2022 Tobacco use and exposure Smokeless tobacco non-user [facility] Start: 10-27-2021 End: 11-06-2021 Exposure to SARS-CoV-2 (event) Yes [facility] Start: 06-27-2022 End: 09-07-2022 History of Social function [facility] Start: 06-27-2022 End: 09-07-2022 Tobacco use panel [facility] Start: 01-27-2012 Adult Depression Screening Assessment 0 [facility] Start: 09-01-2020 Gender identity Identifies as female gender (finding) [facility] Start: 09-01-2020 Sexual orientation Heterosexual (raul [place]) [facility] Has the [employer], [employer], or [facility] [employer] threatened to shut off services in your home in past 12Mo No [facility] Are you now , , , , never or living with a partner? [facility] How often to you hav e a drink containing alcohol? Never [facility] Do you feel stress - tense, restless, nervous, or anxious, or unable to sleep at night because your mind is troubled all the time - these days [OSQ] To some extent [facility] (I/We) worried chitra er (my/our) food would run out before (I/we) got money to buy more. DK or Refused [facility] Start: 10-08-2024 End: 10-30-2024 Alcoholic beverage intake Ex-drinker (finding) [facility] Medical Equipment Procedure Code Equipment Code Equipment Origin al Text Equipment Identifier Dates Shell Actb 52mm Prim Hmsphr Ch - [id number] Start: 08-06-2012 Head V40 Fem Hip 32mm +4mm Blx - [id number] Start: 08-06-2012 Ins Actb 32mm 0d X3 Trdnt - [id number] Start: 08-06-2012 Fem Stem Acclde 2 Sz 3 127 Deg - [id number] Start: 08-06-2012 Screw Bn 6.5mm 3 0mm Trdnt - [id number] Start: 08-06-2012 Goals Date Patient Goal Desired Activity /State Functional Status Date Assessment Result Facility [facility]-01-[facility]21 [facility] 07-28-2014 Are you deaf, or do you have serious difficulty hearing No 07/28/2014 1:31 PM Bre Marcelo LPN No [facility] 07-28-2014 Are you blind, or do you have serious difficulty seeing, even when wearing glasses No 07/28/2014 1:31 PM Ber Marcelo LPN No [facility] 07-28-2014 Do you have difficul ty dressing or bathing No 07/28/2014 1:31 PM EDT Bre De Oliveira LPN No [facility] 07-28-2014 Because of a physica l, mental, or emotional condition, do you have difficulty doing errands alone such as visiting a physician's office or shopping No 07/28/2014 1:31 PM EDT Bre De Oliveira LPN No [facility] 07-06-2014 Do you have serious difficulty walking or climbing stairs No 07/06/2014 8:24 AM EDT Luci Gonzalez MA No [facility] Mental Status Date Assessment Result Facility 11-08-2021 Cognitive function Voice/Name [facility] Work Phone: 11-07-2021 Cognitive function Level Of Cons ciousness Awake;Alert;Appropriate;Fol lows Commands [facility] Work Phone: 09-01-2021 Cognitive function Voice/Name [facility] Work Phone: 08-31-2021 Cognitive function Patient Ondina benavidez Person;Place;Time [facility] Work Phone: 07-28-2014 Because of a physica l, mental, or emotional condition, do you have serious difficulty concentrating, remembering, or making decisions No 07/28/2014 1:31 PM EDT Bre De Oliveira LPN No [facility] Clinical Notes 08-26-2014 to 12-07-2024 Aislinn Sutherland - 11/05/2024 12:14 PM Jane Han APRN.GOLF BALL WINDER - 10/30/2024 5:32 PM EDTTelephone Encounter - Jazz Higgins - 10/08/2024 12:47 PM Pastora Murcia - 10/05/2024 10:04 AM EDT Note Date & Type Note Facility 12-07-2024 Note HNO ID: [id number] Author: ?, ?, ? Service: ? Author Type: ? Type: Progress Notes Filed: 12/08/2024 17:00 Note Text: Patient has been awarded an additional $8000 on his/her Dx:CLL jamari with [facility] valid until 12/20/2025. [facility] 12-07-2024 Note [facility] 11-05-2024 History of Present illness Narrative [facility] Refill Assessment Medication(s): Imbruvica Patient's current medication list and adherence status to current therapy were reviewed by Specialty Pharmacy clinical pharmacist to identify any new drug interactions or non-compliance to therapy. Therapy continues to be appropriate for disease, patient response, and medical condition. Verification of therapeutic benefit and effectiveness with current therapy was completed. Adverse events, barriers in adherence, and side effects were assessed and addressed if applicable. Will proceed with refill with no changes in therapy - patient progressing towards achieving therapeutic goals based on medication-specific laboratory parameters, disease state markers and outcomes. Office/provider notes have been reviewed prior to dispensing the medication. 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: [facility] Home Delivery Address Calculated: [address] [place] [address] Delivery date: 11/11/24 Questions or concerns for the pharmacist?: No Did you have any side effects believed to be related to this medication, that resulted in hospitalization?: No Current Outpatient Medications on File Prior to Visit Medication Sig ibrutinib (IMBRUVICA) 140 mg capsule Take 2 capsules (280mg) by mouth once daily with a glass of water pantoprazole DR (PROTONIX) 40 mg tablet Take 1 tablet by mouth two times a day. tiZANidine (ZANAFLEX) 2 mg tablet Take 1 tablet by mouth every 6 hours as needed. sertraline (ZOLOFT) 25 mg tablet Take 1 tablet by mouth once daily. ondansetron (ZOFRAN) 8 mg tablet Take 1 tablet by mouth every 8 hours as needed. levothyroxine (LEVOXYL) 125 mcg tablet Take 1 tablet by mouth once daily. Take on empty stomach. For thyroid. Oxyquinoline-Na Lauryl Sulfate (TRIMO-SCHUSTER JELLY) 0.025-0.01 % gel Use 1 inch vaginally two times a week. acetaminophen (TYLENOL) 325 mg tablet Take 650 mg by mouth every 6 hours as needed for pain. losartan (COZAAR) 100 mg tablet Take 1 tablet by mouth once daily. allopurinol (ZYLOPRIM) 100 mg tablet Take 1 tablet by mouth once daily. Lactobacillus acidophilus (PROBIOTIC ORAL) Take 1 tablet by mouth once daily. OTC PRODUCT Take 1 capsule by mouth once daily. Plexus nerve No current facility-administered medications on file prior to visit. 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 06/29/[address] DR 280mg daily Admin/Storage: Take with glass of water at same time each day, avoid grapefruit/[place] oranges A/E: Cardiovascular effects,GI (diarrhea, constipation, abdominal pain, decreased appettite, dyspepsia, N/V, stomatitis), HTN, TLS, rash, anemia, neutropenia, thrombocytopenia, bruising, petechia, arthralgia, asthenia, muscle spasm, musculoskeetal pain Pt is on allopurinol D/I: - Category C interaction with escitalopram, as escitalopram may enhance the adverse/toxic effect of Imbruvica. Specifically, the risk of bleeding and hemorrhage may be increased. Consider increased monitoring for signs and symptoms of bleeding in patients receiving this combination. - Category C interaction with fish oil. [place]-3 fatty acids may enhance the antiplatelet effect of Imbruvica. Consider increased monitor for evidence of bleeding/bleeding risk in patients receiving this combination. Lab: blood counts monthly or as clinically necessary renal and hepatic function uric acid levels as clinically necessary monitor blood pressure monitor for sign/symptoms of bleeding, infections, progressive multifocal encephalopathy, tumor lysis syndrome, second primary malignancies; signs/symptoms of cardiac arrhythmias and/or heart failure; ECG prior to initiation (patients with cardiac risk factors or history of cardiac arrhythmias) and during therapy if clinically indicated Est. Tx Plan Start Date: No information available Estimated Start Date Info: No information available Est. Estimated Treatment Duration: No information available Aislinn Sutherland documented in this encounter [facility] 11-05-2024 Note [facility] 10-30-2024 Note [facility] 10-30-2024 History of Present illness Narrative This is a 79 year old female who presents today with: The patient is a 79-year-old female with depression, presenting for follow-up of sertraline therapy. Accompanied by her daughter, who is also providing history. HISTORY OF PRESENT ILLNESS: Depression: - Mareclo Gonzalez recently started on Zoloft; reports feeling better with more energy and alertness. - Family notes improvement in mood and energy levels. - Denies side effects from medication. - Satisfied with current dosage. Memory Concerns: - Marcelo noticed improvement in memory. - Family also reports improvement in memory. Dyspnea: - Chronic dyspnea, no recent changes. Edema: - Mild edema in Marcelo's feet and ankles. - Elevates feet most of the time. - Previously prescribed thiazide diuretic for edema management. - Wears loose socks to avoid constriction. Will monitor if swelling goes down overnight while sleeping. PAST MEDICAL HISTORY: PAST MEDICAL HISTORY Diagnosis Date Allergic rhinitis due to animal hair and dander + testing dander, dust, outside. [facility]. Arthritis of both knees 03/04/2012 CKD (chronic kidney disease), stage III (HCC) Degeneration of intervertebral disc, site unspecified Degenerative arthritis of hip 03/04/2012 Diverticulosis of colon (without mention of hemorrhage) Endometriosis Family history of malignant neoplasm of gastrointestinal tract Hyperlipidemia Hypertension Internal hemorrhoids without mention of complication Other specified gastritis Unspecified hypothyroidism PAST SURGICAL HISTORY Procedure Laterality Date ARTHRP ACETBLR/PROX FEM PROSTC AGRFT/ALGRFT 2012 Left Hip ARTHRP ACETBLR/PROX FEM PROSTC AGRFT/ALGRFT Right 01/21/2017 Dr. Reid COLONOSCOPY FLX DX W/COLLJ SPEC WHEN PFRMD 12/16/08 DILATION & CURETTAGE DX&/THER NONOBSTETRIC 1969's multiple LAMINECTOMY W/O FFD > 2 VERT SEG LUMBAR 2009 titanium chris PAST SURGICAL HISTORY OF 2001 FOOT SURGERY PAST SURGICAL HISTORY OF Jan 2004 Dr. Mclean - Back Surgery-upper back - metal rods and cadaver bone TOTAL ABDOMINAL HYSTERECT W/WO RMVL TUBE OVARY 1986 Hysterectomy, ANDREW/BSO ALLERGIES Lyrica [Pregabalin], Penicillins, Amoxicillin, Codeine, Doxycycline Hcl, Fentanyl, Keflex [Cephalexin], Latex, Lisinopril, Macrobid [Nitrofurantoin Monohyd/M-Cryst], Meloxicam, Mirapex [Pramipexole], Oxycodone, Sulfa (Sulfonamide Antibiotics), Trazodone (Bulk), Ultram [Tramadol Hcl], Versed [Midazolam Hcl], and Zetia [Ezetimibe] MEDICATIONS Current Outpatient Medications Medication Sig pantoprazole DR (PROTONIX) 40 mg tablet Take 1 tablet by mouth two times a day. tiZANidine (ZANAFLEX) 2 mg tablet Take 1 tablet by mouth every 6 hours as needed. sertraline (ZOLOFT) 25 mg tablet Take 1 tablet by mouth once daily. ondansetron (ZOFRAN) 8 mg tablet Take 1 tablet by mouth every 8 hours as needed. levothyroxine (LEVOXYL) 125 mcg tablet Take 1 tablet by mouth once daily. Take on empty stomach. For thyroid. Oxyquinoline-Na Lauryl Sulfate (TRIMO-SCHUSTER JELLY) 0.025-0.01 % gel Use 1 inch vaginally two times a week. acetaminophen (TYLENOL) 325 mg tablet Take 650 mg by mouth every 6 hours as needed for pain. ibrutinib (IMBRUVICA) 140 mg capsule Take 2 capsules (280mg) by mouth once daily with a glass of water losartan (COZAAR) 100 mg tablet Take 1 tablet by mouth once daily. allopurinol (ZYLOPRIM) 100 mg tablet Take 1 tablet by mouth once daily. Lactobacillus acidophilus (PROBIOTIC ORAL) Take 1 tablet by mouth once daily. OTC PRODUCT Take 1 capsule by mouth once daily. Plexus nerve No current facility-administered medications for this visit. FAMILY HISTORY Problem Relation Age of Onset Hypertension Mother Stroke Mother other (DIVERTICULITIS) Mother Heart Father Hypertension Father Colon Cancer Sister age 48-50 Diabetes Maternal Grandmother Thyroid Sister X-2 Thyroid Child 2 Daughters Asthma No Family History Allergies No Family History SOCIAL HISTORY[1] REVIEW OF SYSTEMS Constitutional: (+) decreased appetite, (-) sleep disturbance Respiratory: (+) shortness of breath Cardiovascular: (+) unilateral ankle swelling. No chest pain. EXAM: BP 148/80 Pulse 66 Resp 16 Wt 79.8 kg (176 lb) SpO2 95% BMI 35.55 kg/m PHYSICAL EXAM: General Appearance: Well appearing, alert, in no acute distress, well-hydrated, well nourished.. Skin: Skin color, texture, turgor normal, no suspicious rashes or lesions. Head: Normocephalic, no masses, lesions, tenderness or abnormalities. Eyes: Anicteric sclera. Extraocular movements are intact. . Lungs: Lungs clear to auscultation. No wheezing, rhonchi, rales.. Heart: RRR without murmur, gallop, or rubs. No ectopy. Extremities: No deformities, trace - +1 bilateral ankle edema. Neurologic: Gait normal. ASSESSMENT/PLAN 1. 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 - Continue current sertraline dose. - Advised patient and family to monitor for any changes in mood or behavior that may indicate need for dose adjustment. - Follow-up in 6 months. Sooner if problems. 2. Essential (primary) hypertension (I10) Stable. 3. Fatigue, unspecified type (R53.83) Improved with sertraline. 4. Memory loss (R41.3) - Patient reports subjective improvement in memory. - Offered in-office memory test to establish baseline and track changes over time. Agreed to BACH testing. Discussed treatment plan and patient voices understanding. Patient's questions answered appropriately. Medications and potential side effects were discussed and patient voices understanding. Return to the office as scheduled or as needed for worsening/no improvement. Jane Baig APRN.GOLF BALL WINDER Recording using [employer] software for draft documentation of the visit was discussed with the patient/authorized development representative; all questions welcomed and answered. Patient/authorized development representative agreed to proceed [1] Social History Tobacco Use Smoking status: Former Types: Cigarettes Smokeless tobacco: Never Tobacco comments: None since age 20s. No smoking in childhood home. Spouse of 56 years stopped smoking 1974. Vaping Use Vaping status: Never Used Substance Use Topics Alcohol use: Not Currently Drug use: Never documented in this encounter [facility] 10-08-2024 Telephone encounter Note Scheduled December lab appointment as requested. Patient currently isn't showing CBC or CMP orders under active request. Please file standing orders Jazz Higgins [facility] 10-08-2024 Miscellaneous Notes Scheduled December lab appointment as requested. Patient currently isn't showing CBC or CMP orders under active request. Please file standing orders Jazz Higgins Please see my chart message and assist in scheduling. Thank you. Cristina Taylor APRN.GOLF BALL WINDER documented in this encounter [facility] 10-08-2024 Telephone encounter Note Please see my chart message and assist in scheduling. Thank you. Cristina Taylor APRN.GOLF BALL WINDER [facility] 10-08-2024 Note [facility] 10-08-2024 History of Present illness Narrative Chief Complaint Patient presents with: CLL (chronic lymphocytic leukemia) Follow Up HPI: Marcelo Gonzalez is a 79 year old female who presents here today for follow up CLL. Per Dr. Salas's previous note: H/o essential hypertension, hyperlipidemia, GERD, hypothyroidism, osteoarthritis of the knees, degenerative disease of the lumbar spine and possibly RA. Patient was noted to have bilateral axillary adenopathy on a screening mammogram done 06/20/2020. Multiple axillary nodes were noted in the right breast posterior depth upper region and multiple axillary nodes were observed in the left breast posterior depth upper region. Multiple enlarged lymph nodes were observed in the left axilla on US. They had thickened cortexes. There was one enlarged lymph node in the right axilla on ultrasound. And ultrasound core needle biopsy of one of the left axillary lymph nodes was performed on 07/14/2020. 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 Current therapy: Began Imbruvica 09/14/20. Pt. called in c/o fatigue on 06/29/21-imbruvica dose lowered to [address] Salas. S/p L total knee on May 21, [address] Reid. Pt. here with her daughter and spouse. Recent fall in basement-seen by PCP-xrays ordered. No fx. Appetite:So so. Wt. down 2# from last visit. Energy level:None. Denies fevers or recent illness. Mouth:denies sores Resp:denies cough or sob, occ. jones long distance walking Cardiac:denies chest pain/palpitations GI:denies abd pain, n/v, moving bowels regularly :denies dysuria/hematuria Extrem:back pain s/p fall -xray neg. Neuro:denies symptoms of neuropathy Heme:denies bleeding The ROS is otherwise negative. Past medical history, appointments, medications, allergies reviewed. No changes. EXAM: BP 148/76 Pulse 64 Temp 36.3 C (97.3 F) (Temporal) Resp 14 Ht 149.9 cm (4' 11) Wt 79 kg (174 lb 2.6 oz) SpO2 97% BMI 35.18 kg/m APPEARANCE Well appearing, alert, in no acute distress, well-hydrated, well nourished. HEART RRR with normal S1 and S2, no murmurs LUNG clear to auscultation LYMPH NODES No cervical lymphadenopathy, No supraclavicular lymphadenopathy, and No axillary lymphadenopathy. ABDOMEN bowel sounds normoactive, soft, non-tender EXTREMITIES No edema NEURO Awake, alert and oriented x 3, using a cane, and No involuntary motions. SKIN Skin color, texture, turgor normal, no suspicious rashes or lesions LABS: Latest Ref Rng 09/03/2024 09/30/2024 10/08/2024 WBC 3.70 - 11.00 k/uL 6.21 9.76 8.04 RBC 3.90 - 5.20 m/uL 3.94 3.79 (L) 3.72 (L) Hemoglobin 11.5 - 15.5 g/dL 12.4 11.7 11.5 Hematocrit 36.0 - 46.0 % 35.8 (L) 36.0 34.9 (L) MCV 80.0 - 100.0 fL 90.9 95.0 93.8 MCH 26.0 - 34.0 pg 31.5 30.9 30.9 MCHC 30.5 - 36.0 g/dL 34.6 32.5 33.0 RDW-CV 11.5 - 15.0 % 13.5 14.0 14.1 Platelet Count 150 - 400 k/uL 343 387 367 MPV 9.0 - 12.7 fL 9.0 10.3 9.2 Neut% % 56.3 67.2 68.4 Abs Neut (ANC) 1.45 - 7.50 k/uL 3.49 6.55 5.50 Lymph% % 26.2 18.4 16.8 Abs Lymph 1.00 - 4.00 k/uL 1.63 1.80 1.35 [place]% % 14.5 11.6 11.4 Abs [place] <0.87 k/uL 0.90 (H) 1.13 (H) 0.92 (H) Eosin% % 1.0 1.0 1.4 Abs Eosin <0.46 k/uL 0.06 0.10 0.11 Baso% % 1.4 1.4 1.6 Abs Baso <0.11 k/uL 0.09 0.14 (H) 0.13 (H) Immature Gran % % 0.6 0.4 0.4 IMMATURE GRANS (ABS) <0.10 k/uL 0.04 0.04 0.03 NRBC /100 WBC 0.0 0.0 0.0 Absolute nRBC <0.01 k/uL <0.01 <0.01 <0.01 DTYPE Auto Auto Auto Latest Ref Rng 09/03/2024 09/30/2024 10/08/2024 Protein, Total 6.3 - 8.0 g/dL 7.0 7.2 6.8 Albumin 3.9 - 4.9 g/dL 4.3 4.2 4.3 Calcium 8.5 - 10.2 mg/dL 9.5 9.3 9.5 Bilirubin, Total 0.2 - 1.3 mg/dL 0.4 0.4 0.4 Alkaline Phosphatase 34 - 123 U/L 98 93 104 AST 13 - 35 U/L 17 22 14 ALT 7 - 38 U/L 16 13 10 Glucose 74 - 99 mg/dL 79 63 (L) 82 BUN 7 - 21 mg/dL 17 15 15 Creatinine 0.58 - 0.96 mg/dL 1.16 (H) 1.21 (H) 1.06 (H) Sodium 136 - 144 mmol/L 128 (L) 132 (L) 135 (L) Potassium 3.7 - 5.1 mmol/L 4.0 5.5 (H) 4.0 Chloride 98 - 107 mmol/L 91 (L) 94 (L) 101 CO2 22 - 30 mmol/L 23 23 23 Anion Gap 8 - 15 mmol/L 14 15 11 eGFR >=60 mL/min/1.73m 48 (L) 46 (L) 54 (L) Latest Ref Rng 09/03/2024 10/08/2024 Magnesium 1.7 - 2.3 mg/dL 2.2 2.2 ASSESSMENT/PLAN: 1. CLL (chronic lymphocytic leukemia) (HCC) - ICD9: 204.10, ICD10: C91.10 - No new concerning findings on exam. - Tolerating lower dose of imbruvica better-2 capsules daily. Energy improved. - Reviewed CBC/CMP/Mag with pt., spouse and daughter. - Follow up with Cardiology/Ortho/PCP as scheduled. - Continue current dose of imbruvica. - Follow up with Chapo Baig CNP as scheduled. - CBC/CMP monthly. - Follow up in 3 months with CBC/CMP. - Pt. aware to call office with any questions/concerns. The patient indicates understanding of these issues and agrees with the plan. All documentation from previous visit of 07/08/24-Dr. Salas/myself was copied and pasted, documentation has been reviewed and edited as necessary for today's visit. Cristina Taylor APRN.EDITA documented in this encounter [facility] 10-05-2024 Telephone encounter Note Pt's called and is notified of providers results and instructions. He voices understanding and will let his know. Joana Dhaliwal RN [facility] 10-05-2024 Miscellaneous Notes Pt's called and is notified of providers results and instructions. He voices understanding and will let his know. Joana Dhaliwal RN The xray doesn't show any fractures, but it does show some degenerative/arthritic changes. I sent a small amount of muscle relaxer to the pharmacy, but any muscle relaxer had the potential to cause more drowsiness and increase the risk for falls. I would also continue taking tylenol. She can also use heat/ice to the area, as well as topical (santos boo, icy hot, biofreeze or the topical pain patches like salonpas.) Please let us know if no better or worsening. Pt called in and reports she had back x-rays yesterday. Please look at results. IMPRESSION: No acute fracture. Grade 1-2 anterolisthesis of L4 on L5. Pt reports provider has seen her back and knows she has fallen. Pt states provider knows what she is up against. Pt is requesting muscle relaxer's be sent to [facility] in [place]. Please call and advise. Joana Dhaliwal RN documented in this encounter [facility] 10-05-2024 History of Present illness Narrative [facility] Refill Assessment Medication(s): Imbruvica Patient's current medication list and adherence status to current therapy were reviewed by Specialty Pharmacy clinical pharmacist to identify any new drug interactions or non-compliance to therapy. Therapy continues to be appropriate for disease, patient response, and medical condition. Verification of therapeutic benefit and effectiveness with current therapy was completed. Adverse events, barriers in adherence, and side effects were assessed and addressed if applicable. Will proceed with refill with no changes in therapy - patient progressing towards achieving therapeutic goals based on medication-specific laboratory parameters, disease state markers and outcomes. Office/provider notes have been reviewed prior to dispensing the medication. 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 Patient confirmed: Yes Med/dose confirmed: Yes Supplies needed: No supplies needed Missed doses: No Estimated days supply on hand: 7 Copay amount: 0 Copay form of payment: Credit card on file Payment confirmed: Yes Delivery method: FedEx Signature required: Waived on patient request Delivery address: [address] [place] [address] [place] [id number] Delivery date: 10/07/24 Questions or concerns for the pharmacist?: No Did you have any side effects believed to be related to this medication, that resulted in hospitalization?: No Meds Previous to this Encounter[1] [facility] CLINICAL ASSESSMENT - HEMATOLOGY ONCOLOGY V6: Assessment to use: Refill Date of influenza vaccination reminder: 04/15/2024 Date of most recent vaccination assessment: 04/15/2024 Treatment Plan Information: 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 06/29/21 DR 280mg daily Admin/Storage: Take with glass of water at same time each day, avoid grapefruit/[place] oranges A/E: Cardiovascular effects,GI (diarrhea, constipation, abdominal pain, decreased appettite, dyspepsia, N/V, stomatitis), HTN, TLS, rash, anemia, neutropenia, thrombocytopenia, bruising, petechia, arthralgia, asthenia, muscle spasm, musculoskeetal pain Pt is on allopurinol D/I: - Category C interaction with escitalopram, as escitalopram may enhance the adverse/toxic effect of Imbruvica. Specifically, the risk of bleeding and hemorrhage may be increased. Consider increased monitoring for signs and symptoms of bleeding in patients receiving this combination. - Category C interaction with fish oil. [place]-3 fatty acids may enhance the antiplatelet effect of Imbruvica. Consider increased monitor for evidence of bleeding/bleeding risk in patients receiving this combination. Lab: blood counts monthly or as clinically necessary renal and hepatic function uric acid levels as clinically necessary monitor blood pressure monitor for sign/symptoms of bleeding, infections, progressive multifocal encephalopathy, tumor lysis syndrome, second primary malignancies; signs/symptoms of cardiac arrhythmias and/or heart failure; ECG prior to initiation (patients with cardiac risk factors or history of cardiac arrhythmias) and during therapy if clinically indicated Est. Tx Plan Start Date: No information available Estimated Start Date Info: No information available Est. Estimated Treatment Duration: No information available Pastora Farooq [1] Current Outpatient Medications on File Prior to Visit Medication Sig tiZANidine (ZANAFLEX) 2 mg tablet Take 1 tablet by mouth every 6 hours as needed. amLODIPine (NORVASC) 2.5 mg tablet Take 1 tablet by mouth once daily. benzonatate (TESSALON PERLE) 100 mg capsule Take 2 capsules by mouth three times a day as needed for up to 10 days. sertraline (ZOLOFT) 25 mg tablet Take 1 tablet by mouth once daily. ondansetron (ZOFRAN) 8 mg tablet Take 1 tablet by mouth every 8 hours as needed. levothyroxine (LEVOXYL) 125 mcg tablet Take 1 tablet by mouth once daily. Take on empty stomach. For thyroid. Oxyquinoline-Na Lauryl Sulfate (TRIMO-SCHUSTER JELLY) 0.025-0.01 % gel Use 1 inch vaginally two times a week. acetaminophen (TYLENOL) 325 mg tablet Take 650 mg by mouth every 6 hours as needed for pain. ibrutinib (IMBRUVICA) 140 mg capsule Take 2 capsules (280mg) by mouth once daily with a glass of water losartan (COZAAR) 100 mg tablet Take 1 tablet by mouth once daily. hydroCHLOROthiazide 25 mg tablet Take 1 tablet by mouth once daily. allopurinol (ZYLOPRIM) 100 mg tablet Take 1 tablet by mouth once daily. pantoprazole DR (PROTONIX) 40 mg tablet Take 1 tablet by mouth two times a day. Lactobacillus acidophilus (PROBIOTIC ORAL) Take 1 tablet by mouth once daily. fish,bora,flax oils-om3,6,9no1 1,200 mg cap Take 1 capsule by mouth once daily. (Patient not taking: Reported on 09/30/2024) OTC PRODUCT Take 1 capsule by mouth once daily. Plexus nerve No current facility-administered medications on file prior to visit. documented in this encounter [facility] 10-05-2024 Note [facility] 10-05-2024 Telephone encounter Note The xray doesn't show any fractures, but it does show some degenerative/arthritic changes. I sent a small amount of muscle relaxer to the pharmacy, but any muscle relaxer had the potential to cause more drowsiness and increase the risk for falls. I would also continue taking tylenol. She can also use heat/ice to the area, as well as topical (santos boo, icy hot, biofreeze or the topical pain patches like salonpas.) Please let us know if no better or worsening. [facility] 10-05-2024 Telephone encounter Note Pt called in and reports she had back x-rays yesterday. Please look at results. IMPRESSION: No acute fracture. Grade 1-2 anterolisthesis of L4 on L5. Pt reports provider has seen her back and knows she has fallen. Pt states provider knows what she is up against. Pt is requesting muscle relaxer's be sent to [facility] in [place]. Please call and advise. Joana Dhaliwal RN [facility] 10-04-2024 Note [facility] 10-04-2024 History of Present illness Narrative Images from the original note were not included. URGENT CARE [facility] Marcelo Gonzalez is a 79 year old female. Patient presents with: Trauma: Lower right side of pain, hit plastic tote when fell x 1 week Trauma Back Pain: - Onset two weeks ago after a fall onto cement. - Pain localized to the middle of the back, slightly to the side. - Rates pain as 10/10. - Taking Tylenol Arthritis for pain management. - Denies numbness or tingling radiating down the leg. - Denies head injury or cervical pain. Hodgkin's Lymphoma: - Currently taking chemotherapy pills. - Scheduled for blood tests and an echocardiogram on Saturday. Review of Systems Musculoskeletal: (+) back pain, (+) diffuse pain Neck: (-) neck pain Skin: (+) bruising Objective BP 120/76 Pulse 68 Temp 36.8 C (98.3 F) Resp 20 Wt 79.6 kg (175 lb 7.8 oz) SpO2 95% BMI 35.44 kg/m PAST MEDICAL HISTORY[1] PAST SURGICAL HISTORY Procedure Laterality Date ARTHRP ACETBLR/PROX FEM PROSTC AGRFT/ALGRFT 2012 Left Hip ARTHRP ACETBLR/PROX FEM PROSTC AGRFT/ALGRFT Right 01/21/2017 Dr. Reid COLONOSCOPY FLX DX W/COLLJ SPEC WHEN PFRMD 12/16/08 DILATION & CURETTAGE DX&/THER NONOBSTETRIC 1969' multiple LAMINECTOMY W/O FFD > 2 VERT SEG LUMBAR 2009 titanium chris PAST SURGICAL HISTORY OF 2001 FOOT SURGERY PAST SURGICAL HISTORY OF Jan 2004 Dr. Mclean - Back Surgery-upper back - metal rods and cadaver bone TOTAL ABDOMINAL HYSTERECT W/WO RMVL TUBE OVARY 1986 Hysterectomy, ANDREW/BSO ALLERGIES Lyrica [Pregabalin], Penicillins, Amoxicillin, Codeine, Doxycycline Hcl, Fentanyl, Keflex [Cephalexin], Latex, Lisinopril, Macrobid [Nitrofurantoin Monohyd/M-Cryst], Meloxicam, Mirapex [Pramipexole], Oxycodone, Sulfa (Sulfonamide Antibiotics), Trazodone (Bulk), Ultram [Tramadol Hcl], Versed [Midazolam Hcl], and Zetia [Ezetimibe] MEDICATIONS amLODIPine (NORVASC) 2.5 mg tablet Take 1 tablet by mouth once daily. benzonatate (TESSALON PERLE) 100 mg capsule Take 2 capsules by mouth three times a day as needed for up to 10 days. sertraline (ZOLOFT) 25 mg tablet Take 1 tablet by mouth once daily. ondansetron (ZOFRAN) 8 mg tablet Take 1 tablet by mouth every 8 hours as needed. levothyroxine (LEVOXYL) 125 mcg tablet Take 1 tablet by mouth once daily. Take on empty stomach. For thyroid. Oxyquinoline-Na Lauryl Sulfate (TRIMO-SCHUSTER JELLY) 0.025-0.01 % gel Use 1 inch vaginally two times a week. acetaminophen (TYLENOL) 325 mg tablet Take 650 mg by mouth every 6 hours as needed for pain. ibrutinib (IMBRUVICA) 140 mg capsule Take 2 capsules (280mg) by mouth once daily with a glass of water losartan (COZAAR) 100 mg tablet Take 1 tablet by mouth once daily. hydroCHLOROthiazide 25 mg tablet Take 1 tablet by mouth once daily. allopurinol (ZYLOPRIM) 100 mg tablet Take 1 tablet by mouth once daily. pantoprazole DR (PROTONIX) 40 mg tablet Take 1 tablet by mouth two times a day. Lactobacillus acidophilus (PROBIOTIC ORAL) Take 1 tablet by mouth once daily. OTC PRODUCT Take 1 capsule by mouth once daily. Plexus nerve fish,bora,flax oils-om3,6,9no1 1,200 mg cap Take 1 capsule by mouth once daily. (Patient not taking: Reported on 09/30/2024) FAMILY HISTORY[2] SOCIAL HISTORY[3] Physical Exam Constitutional: General: She is not in acute distress. Appearance: Normal appearance. She is normal weight. She is not ill-appearing or toxic-appearing. HENT: Head: Normocephalic and atraumatic. Cardiovascular: Rate and Rhythm: Normal rate and regular rhythm. Pulses: Normal pulses. Heart sounds: Normal heart sounds. Pulmonary: Effort: Pulmonary effort is normal. Breath sounds: Normal breath sounds. Musculoskeletal: General: Tenderness present. Cervical back: Normal. Lumbar back: Swelling, tenderness and bony tenderness present. No spasms. Decreased range of motion. Back: Neurological: General: No focal deficit present. Mental Status: She is alert. Mental status is at baseline. She is disoriented. Cranial Nerves: No cranial nerve deficit. Sensory: No sensory deficit. Motor: No weakness. Coordination: Coordination normal. General: No acute distress. Back: Midline tenderness. MSK/Ext: Ecchymosis on lateral aspect of hip. { 1. Acute right-sided low back pain without sciatica (M54.50) - Persistent right-sided low back pain for 2 weeks following a fall onto cement; no associated head injury, cervical pain, or radicular symptoms. - X-ray of the lower back shows no acute fracture, hardware intact, and degenerative changes. - Discussed that X-ray is not definitive; CT scan is gold standard but not available here. - Advised follow-up with primary care for further evaluation. - Will call patient with radiology report once available. and Recording using ambient AI software for draft documentation of the visit was discussed with the patient/authorized development representative; all questions welcomed and answered. Patient/authorized development representative agreed to proceed Disposition The patient was discharged. patient well-appearing nontoxic in no acute distress 79-year-old female brought in by her . She walks with a cane this is at her baseline. No head injury, no cervical tenderness no neurovascular deficits on exam. Having generalized right lower pain no urinary symptoms such as urgency frequency or dysuria. X-ray is negative for acute fracture no neurovascular deficits or rash present. Patient also complaining of generalized achiness of all her joints. Discussed she needed further workup as she is currently being treated for non-Hodgkin's lymphoma. Patient verbalized understanding and agreed with this plan. [1] Past Medical History: No date: Allergic rhinitis due to animal hair and dander Comment: + testing dander, dust, outside. [facility]. 03/04/2012: Arthritis of both knees No date: CKD (chronic kidney disease), stage III (HCC) No date: Degeneration of intervertebral disc, site unspecified 03/04/2012: Degenerative arthritis of hip No date: Diverticulosis of colon (without mention of hemorrhage) No date: Endometriosis No date: Family history of malignant neoplasm of gastrointestinal tract No date: Hyperlipidemia No date: Hypertension No date: Internal hemorrhoids without mention of complication No date: Other specified gastritis No date: Unspecified hypothyroidism [2] Review of patient's family history indicates: Problem: Hypertension Relation: Mother Age of Onset: (Not Specified) Problem: Stroke Relation: Mother Age of Onset: (Not Specified) Problem: other (DIVERTICULITIS) Relation: Mother Age of Onset: (Not Specified) Problem: Heart Relation: Father Age of Onset: (Not Specified) Problem: Hypertension Relation: Father Age of Onset: (Not Specified) Problem: Colon Cancer Relation: Sister Age of Onset: (Not Specified) Comment: age 48-50 Problem: Diabetes Relation: Maternal Grandmother Age of Onset: (Not Specified) Problem: Thyroid Relation: Sister Age of Onset: (Not Specified) Comment: X-2 Problem: Thyroid Relation: Child Age of Onset: (Not Specified) Comment: 2 Daughters Problem: Asthma Relation: No Family History Age of Onset: (Not Specified) Problem: Allergies Relation: No Family History Age of Onset: (Not Specified) [3] Social History Tobacco Use Smoking status: Former Types: Cigarettes Smokeless tobacco: Never Tobacco comments: None since age 20s. No smoking in childhood home. Spouse of 56 years stopped smoking 1974. Vaping Use Vaping status: Never Used Substance Use Topics Alcohol use: No Drug use: No documented in this encounter [facility] 10-04-2024 History of Present illness Narrative Radiology Service Progress Note PATIENT NAME: Marcelo Gonzalez DATE OF SERVICE: October 04, 2024 TIME: 1:52 PM PATIENT IDENTITY VERIFICATION COMPLETED USING TWO (2) IDENTIFIERS: Name and Date of confirmed by patient verbally. FALL SCREENING: Has the patient had 2 falls in the last year or 1 fall with injury or currently using an Ambulatory Assistive Device (Walker, Cane, Wheelchair, Crutches, etc.)? Yes, Patient High Risk for Falls What interventions were put in place to prevent falls during this visit? Increased Observations by Caregivers PATIENT GENDER DATA: Assigned female at . status: : No status: NO. PATIENT RELEVANT IMPLANT DATA REVIEWED: Yes PATIENT PRESENTS WITH AN IMPLANTABLE OR ATTACHED GROCERY CLERK CHECKING: Yes Other back surgery and hip replacements RADIOLOGY DEPARTMENT: General X-ray: Exam(s) Completed: Spine X-Ray(s): Lumbar AP / LAT / L5-S1 PERIPHERAL IV DATA: Not applicable SIGNED BY: Chelsie Bunch October 04, 2024 1:52 PM documented in this encounter [facility] 10-04-2024 Note [facility] 09-30-2024 Note [facility] 09-30-2024 Note [facility] 09-01-2024 Note [facility] 08-25-2024 Note [facility] 08-25-2024 History of Present illness Narrative This is a 78 year old female who presents today with: Marcelo Gonzalez is a 78-year-old female with a history of hypothyroidism, gout, and GERD, presenting for evaluation of nocturia, dysuria, and medication refills. HISTORY OF PRESENT ILLNESS: Nocturia and Dysuria: - Nocturia x6 times per night, causing significant fatigue. - Dysuria noted over the past few days. - Denies hematuria. - Urinary frequency and urgency during both day and night; has experienced episodes of incontinence. - Drinks water, [place], and coffee in the morning. - Denies current use of overactive bladder medications. Hypothyroidism: - Taking levothyroxine. - Denies alopecia or dysphagia. Occ constipation. GERD: - Taking pantoprazole BID; provides partial relief of heartburn symptoms. Nausea: - Associated with Imbruvica use. - Requests refill of ondansetron. Anxiety and Depression: - Taking escitalopram; reports no side effects. - No significant change in mood or anxiety. Constipation: - Chronic constipation managed with senna and Miralax PRN. Hypertension: - Taking hydrochlorothiazide during the day. - Home BP reading this mornin/80 mmHg before medication. Fatigue: - Reports snoring; suspects sleep apnea but has not been formally diagnosed. Denies testing. PAST MEDICAL HISTORY: PAST MEDICAL HISTORY Diagnosis Date Allergic rhinitis due to animal hair and dander + testing dander, dust, outside. [facility]. Arthritis of both knees 03/04/2012 CKD (chronic kidney disease), stage III (HCC) Degeneration of intervertebral disc, site unspecified Degenerative arthritis of hip 03/04/2012 Diverticulosis of colon (without mention of hemorrhage) Endometriosis Family history of malignant neoplasm of gastrointestinal tract Hyperlipidemia Hypertension Internal hemorrhoids without mention of complication Other specified gastritis Unspecified hypothyroidism PAST SURGICAL HISTORY Procedure Laterality Date ARTHRP ACETBLR/PROX FEM PROSTC AGRFT/ALGRFT 2012 Left Hip ARTHRP ACETBLR/PROX FEM PROSTC AGRFT/ALGRFT Right 01/21/2017 Dr. Reid COLONOSCOPY FLX DX W/COLLJ SPEC WHEN PFRMD 12/16/08 DILATION & CURETTAGE DX&/THER NONOBSTETRIC 1969's multiple LAMINECTOMY W/O FFD > 2 VERT SEG LUMBAR 2009 titanium chris PAST SURGICAL HISTORY OF 2001 FOOT SURGERY PAST SURGICAL HISTORY OF Jan 2004 Dr. Mclean - Back Surgery-upper back - metal rods and cadaver bone TOTAL ABDOMINAL HYSTERECT W/WO RMVL TUBE OVARY 1986 Hysterectomy, ANDREW/BSO ALLERGIES Lyrica [Pregabalin], Penicillins, Amoxicillin, Codeine, Doxycycline Hcl, Fentanyl, Keflex [Cephalexin], Latex, Lisinopril, Macrobid [Nitrofurantoin Monohyd/M-Cryst], Meloxicam, Mirapex [Pramipexole], Oxycodone, Sulfa (Sulfonamide Antibiotics), Trazodone (Bulk), Ultram [Tramadol Hcl], Versed [Midazolam Hcl], and Zetia [Ezetimibe] MEDICATIONS Current Outpatient Medications Medication Sig escitalopram oxalate (LEXAPRO) 10 mg tablet Take 1 tablet by mouth once daily. ondansetron (ZOFRAN) 8 mg tablet Take 1 tablet by mouth every 8 hours as needed. ciprofloxacin HCl (CIPRO) 250 mg tablet Take 1 tablet by mouth two times a day for 5 days. levothyroxine (LEVOXYL) 125 mcg tablet Take 1 tablet by mouth once daily. Take on empty stomach. For thyroid. Oxyquinoline-Na Lauryl Sulfate (TRIMO-SCHUSTER JELLY) 0.025-0.01 % gel Use 1 inch vaginally two times a week. acetaminophen (TYLENOL) 325 mg tablet Take 650 mg by mouth every 6 hours as needed for pain. ibrutinib (IMBRUVICA) 140 mg capsule Take 2 capsules (280mg) by mouth once daily with a glass of water losartan (COZAAR) 100 mg tablet Take 1 tablet by mouth once daily. hydroCHLOROthiazide 25 mg tablet Take 1 tablet by mouth once daily. allopurinol (ZYLOPRIM) 100 mg tablet Take 1 tablet by mouth once daily. pantoprazole DR (PROTONIX) 40 mg tablet Take 1 tablet by mouth two times a day. Lactobacillus acidophilus (PROBIOTIC ORAL) Take 1 tablet by mouth once daily. fish,bora,flax oils-om3,6,9no1 1,200 mg cap Take 1 capsule by mouth once daily. OTC PRODUCT Take 1 capsule by mouth once daily. Plexus nerve No current facility-administered medications for this visit. FAMILY HISTORY Problem Relation Age of Onset Hypertension Mother Stroke Mother other (DIVERTICULITIS) Mother Heart Father Hypertension Father Colon Cancer Sister age 48-50 Diabetes Maternal Grandmother Thyroid Sister X-2 Thyroid Child 2 Daughters Asthma No Family History Allergies No Family History Social History Tobacco Use Smoking status: Former Types: Cigarettes Smokeless tobacco: Never Tobacco comments: None since age 20s. No smoking in childhood home. Spouse of 56 years stopped smoking 1974. Vaping Use Vaping status: Never Used Substance Use Topics Alcohol use: No Drug use: No REVIEW OF SYSTEMS Constitutional: (+) fatigue, (+) insomnia Ears/Nose/Mouth/Throat: (+) snoring Cardiovascular: (-) chest pain, (-) palpitations, (-) peripheral edema Respiratory: (+) exertional dyspnea Gastrointestinal: (+) nausea, (+) constipation, (+) heartburn Genitourinary: (+) nocturia, (+) urinary frequency, (+) urinary urgency, (+) dysuria, (+) urinary incontinence, (-) hematuria Musculoskeletal: (-) joint pain EXAM: BP 108/70 Pulse 64 Resp 16 Wt 78.5 kg (173 lb) SpO2 97% BMI 34.42 kg/m PHYSICAL EXAM: General Appearance: Well appearing, alert, in no acute distress, well-hydrated, well nourished.. Skin: Skin color, texture, turgor normal, no suspicious rashes or lesions. Head: Normocephalic, no masses, lesions, tenderness or abnormalities. Eyes: Anicteric sclera. Extraocular movements are intact. . Lungs: Lungs clear to auscultation. No wheezing, rhonchi, rales.. Heart: RRR without murmur, gallop, or rubs. No ectopy. Neurologic: Gait normal. ASSESSMENT/PLAN 1. Fatigue, unspecified type (R53.83) - Likely multifactorial, including poor sleep due to nocturia and possible sleep apnea. - Discussed potential impact of nocturia on sleep quality. - Consider evaluation for sleep apnea if symptoms persist. -also consider trial of OAB medication to improve frequent urination. 2. Mixed anxiety depressive disorder (F41.8) - Currently managed with escitalopram; no reported side effects. - Refilled escitalopram prescription. 3. Nausea (R11.0) - relates to Imbruvica. - Refilled ondansetron prescription, oral tablet form. 4. UTI symptoms (R39.9) - Symptoms include dysuria, frequency, urgency, and nocturia. - Urinalysis shows presence of bacteria; urine culture pending. - Initiated ciprofloxacin 1 tablet BID for 5 days. - Discussed potential trial of overactive bladder medication pending culture results. - Will follow up on culture results on Saturday. 5. Hypothyroidism due to acquired atrophy of thyroid (E03.4) - Stable on levothyroxine. - Refilled levothyroxine prescription for 90 days. - Ordered thyroid function tests to be drawn on . 6. Gastroesophageal reflux disease, unspecified whether esophagitis present (K21.9) - Managed with pantoprazole BID; provides partial symptom relief. - Continue current regimen. 7. Hyperlipidemia, unspecified hyperlipidemia type (E78.5) - Ordered lipid panel to be drawn on . Discussed treatment plan and patient voices understanding. Patient's questions answered appropriately. Medications and potential side effects were discussed and patient voices understanding. Return to the office as scheduled or as needed for worsening/no improvement. Jane Baig APRN.EDITA Recording using [employer] software for draft documentation of the visit was discussed with the patient/authorized development representative; all questions welcomed and answered. Patient/authorized development representative agreed to proceed documented in this encounter [facility] 08-25-2024 Instructions Jane Baig APRN.EDITA - 08/25/2024 10:48 AM EDT - Take ondansetron (Zofran) for your Imbruvica-related nausea as prescribed; the prescription has been sent to [facility]. - Continue levothyroxine (thyroid medicine) as prescribed; a 90-day supply has been sent. - Continue escitalopram (Lexapro) for mood/anxiety as prescribed. - Start ciprofloxacin 1 tablet twice daily for 5 days to cover a possible urinary tract infection. - Get blood drawn next week (Saturday the ) for CBC, electrolytes, kidney function, magnesium, thyroid levels, and cholesterol; tell the lab there are orders from both Cristina and md. - Expect a call on Saturday with your urine culture results; if the culture is negative or you re still having frequent urination, we can consider starting an overactive bladder medicine. - Plan to return for routine follow-up in 6 months, or sooner if any new concerns arise. documented in this encounter [facility] 08-07-2024 Telephone encounter Note Labs faxed. Anna Cornejo LPN [facility] 08-07-2024 Miscellaneous Notes Labs faxed. Anna Cornejo LPN Please see my chart message and fax yesterdays labs to Cristofer Cohen/Dr. Kaela Reid. Thank you. Cristina Taylor APRN.GOLF BALL WINDER documented in this encounter [facility] 08-07-2024 Telephone encounter Note Please see my chart message and fax yesterdays labs to Cristofer Cohen/Dr. Kaela Reid. Thank you. Cristina Taylor APRN.GOLF BALL WINDER [facility] 08-06-2024 Telephone encounter Note SOCIAL WORK FOLLOW UP NOTE: [facility] Date of service: August 06, 2024 Marcelo Gonzalez is being seen for a follow up social work visit. Today's visit includes: DaughterYareli TOPICS ADDRESSED: KIRAN received an email from pt's daughter this date inquiring about remainder of pt's [employer] jamari to assist in covering pt's Imbruvica. KIRAN researched this on the [employer] portal which shows pt's jamari was utilized in February of 2024 but not since. Per chart review, pt's co-pay amount on refills has been $0. KIRAN contacted [facility] pharmacist who reports pt has met her catastrophic coverage after the February fill of Imbruvica so all refills for 2024 will be $0. KIRAN relayed this information to pt's daughter via email this date. No other needs identified at this time. PLAN: Assist with financial support applications and Continue follow up as needed F/U APPOINTMENT: PRN Assigned KIRAN listed in Care Team tab: Yes GIULIA Hernandez [facility] 08-06-2024 Miscellaneous Notes SOCIAL WORK FOLLOW UP NOTE: [facility] Date of service: August 06, 2024 Marcelo Gonzalez is being seen for a follow up social work visit. Today's visit includes: DaughterYareli TOPICS ADDRESSED: SW received an email from pt's daughter this date inquiring about remainder of pt's [employer] jamari to assist in covering pt's Imbruvica. KIRAN researched this on the [employer] portal which shows pt's jamari was utilized in February of 2024 but not since. Per chart review, pt's co-pay amount on refills has been $0. KIRAN contacted [facility] pharmacist who reports pt has met her catastrophic coverage after the February fill of Imbruvica so all refills for 2024 will be $0. KIRAN relayed this information to pt's daughter via email this date. No other needs identified at this time. PLAN: Assist with financial support applications and Continue follow up as needed F/U APPOINTMENT: PRN Assigned KIRAN listed in Care Team tab: Yes GIULIA Hernandez documented in this encounter [facility] 08-06-2024 History of Present illness Narrative [facility] Refill Assessment Medication(s): Imbruvica Reviewed chart notes since last [facility] encounter. Pt had some R ankle/foot swelling likely due from the R knee meniscus tears. US showed no blood clots. No changes to treatment at this time. Refill appropriate. Labs reviewed from 08/06: no dose limiting toxicities / within continuation parameters. Next clinic visit scheduled 10/08/24. ALLERGIES Allergen Reactions Lyrica [Pregabalin] Mental Status Change Penicillins Hives Amoxicillin GI Upset Codeine Rash Doxycycline Hcl GI Upset Fentanyl Rash Keflex [Cephalexin] Latex Lisinopril Cough Macrobid [Nitrofura* Intolerance Weakness, pain, unable to walk Meloxicam Hives Mirapex [Pramipexol* Rash Oxycodone Hives Sulfa (Sulfonamide * Hives Trazodone (Bulk) Mental Status Change hallucinates Ultram [Tramadol Hc* Versed [Midazolam H* Rash Zetia [Ezetimibe] Patient's current medication list and adherence status to current therapy were reviewed by Specialty Pharmacy clinical pharmacist to identify any new drug interactions or non-compliance to therapy. Therapy continues to be appropriate for disease, patient response, and medical condition. Verification of therapeutic benefit and effectiveness with current therapy was completed. Adverse events, barriers in adherence, and side effects were assessed and addressed if applicable. Will proceed with refill with no changes in therapy - patient progressing towards achieving therapeutic goals based on medication-specific laboratory parameters, disease state markers and outcomes. Office/provider notes have been reviewed prior to dispensing the medication. Cameron Sheehan, PharmD Clinical Pharmacist, Oncology [facility] P: , F: Pool: P [facility] Pool #: [id number] 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 Patient confirmed: Yes Med/dose confirmed: Yes Supplies needed: No supplies needed Missed doses: No Estimated days supply on hand: 6 Copay amount: 0 Copay form of payment: Credit card on file Payment confirmed: Yes Delivery method: FedEx Signature required: Waived on patient request Delivery address: [address] [place] [id number] Delivery date: 08/10/24 Questions or concerns for the pharmacist?: No Did you have any side effects believed to be related to this medication, that resulted in hospitalization?: No Current Outpatient Medications on File Prior to Visit Medication Sig Oxyquinoline-Na Lauryl Sulfate (TRIMO-SCHUSTER JELLY) 0.025-0.01 % gel Use 1 inch vaginally two times a week. levothyroxine (LEVOXYL) 125 mcg tablet Take 1 tablet by mouth once daily. Take on empty stomach. For thyroid. acetaminophen (TYLENOL) 325 mg tablet Take 650 mg by mouth every 6 hours as needed for pain. ibrutinib (IMBRUVICA) 140 mg capsule Take 2 capsules (280mg) by mouth once daily with a glass of water escitalopram oxalate (LEXAPRO) 10 mg tablet Take 1 tablet by mouth once daily. losartan (COZAAR) 100 mg tablet Take 1 tablet by mouth once daily. hydroCHLOROthiazide 25 mg tablet Take 1 tablet by mouth once daily. allopurinol (ZYLOPRIM) 100 mg tablet Take 1 tablet by mouth once daily. pantoprazole DR (PROTONIX) 40 mg tablet Take 1 tablet by mouth two times a day. Lactobacillus acidophilus (PROBIOTIC ORAL) Take 1 tablet by mouth once daily. fish,bora,flax oils-om3,6,9no1 1,200 mg cap Take 1 capsule by mouth once daily. OTC PRODUCT Take 1 capsule by mouth once daily. Plexus nerve No current facility-administered medications on file prior to visit. 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 06/29/21 DR 280mg daily Admin/Storage: Take with glass of water at same time each day, avoid grapefruit/[place] oranges A/E: Cardiovascular effects,GI (diarrhea, constipation, abdominal pain, decreased appettite, dyspepsia, N/V, stomatitis), HTN, TLS, rash, anemia, neutropenia, thrombocytopenia, bruising, petechia, arthralgia, asthenia, muscle spasm, musculoskeetal pain Pt is on allopurinol D/I: - Category C interaction with escitalopram, as escitalopram may enhance the adverse/toxic effect of Imbruvica. Specifically, the risk of bleeding and hemorrhage may be increased. Consider increased monitoring for signs and symptoms of bleeding in patients receiving this combination. - Category C interaction with fish oil. [place]-3 fatty acids may enhance the antiplatelet effect of Imbruvica. Consider increased monitor for evidence of bleeding/bleeding risk in patients receiving this combination. Lab: blood counts monthly or as clinically necessary renal and hepatic function uric acid levels as clinically necessary monitor blood pressure monitor for sign/symptoms of bleeding, infections, progressive multifocal encephalopathy, tumor lysis syndrome, second primary malignancies; signs/symptoms of cardiac arrhythmias and/or heart failure; ECG prior to initiation (patients with cardiac risk factors or history of cardiac arrhythmias) and during therapy if clinically indicated Est. Tx Plan Start Date: No information available Estimated Start Date Info: No information available Est. Estimated Treatment Duration: No information available Pastora Farooq documented in this encounter [facility] 08-06-2024 Note [facility] 07-29-2024 Telephone encounter Note Pt is almost out of medication. The patient has been identified by name and date of : Yes Caregiver verified no other encounters exist for this prescription request: Yes Caregiver confirmed with patient/requestor that no other refills are due, in the near future, with this provider at this time: Yes The last office visit in the department: 04/17/2024 Does the patient have a future office visit with this provider/department: Yes 08/25/2024 Requested Prescriptions Pending Prescriptions Disp Refills Oxyquinoline-Na Lauryl Sulfate (TRIMO-SCHUSTER JELLY) 0.025-0.01 % gel 113.4 g 1 Sig: Use 1 inch vaginally two times a week. levothyroxine (LEVOXYL) 125 mcg tablet 30 tablet 2 Sig: Take 1 tablet by mouth once daily. Take on empty stomach. For thyroid. Joana Dhaliwal RN July 29, 2024 12:02 PM [facility] 07-29-2024 Miscellaneous Notes Pt is almost out of medication. The patient has been identified by name and date of : Yes Caregiver verified no other encounters exist for this prescription request: Yes Caregiver confirmed with patient/requestor that no other refills are due, in the near future, with this provider at this time: Yes The last office visit in the department: 04/17/2024 Does the patient have a future office visit with this provider/department: Yes 08/25/2024 Requested Prescriptions Pending Prescriptions Disp Refills Oxyquinoline-Na Lauryl Sulfate (TRIMO-SCHUSTER JELLY) 0.025-0.01 % gel 113.4 g 1 Sig: Use 1 inch vaginally two times a week. levothyroxine (LEVOXYL) 125 mcg tablet 30 tablet 2 Sig: Take 1 tablet by mouth once daily. Take on empty stomach. For thyroid. Joana Dhaliwal RN July 29, 2024 12:02 PM documented in this encounter [facility] 07-09-2024 History of Present illness Narrative [facility] Refill Assessment Medication(s): Imbruvica Patient's current medication list and adherence status to current therapy were reviewed by Specialty Pharmacy clinical pharmacist to identify any new drug interactions or non-compliance to therapy. Therapy continues to be appropriate for disease, patient response, and medical condition. Verification of therapeutic benefit and effectiveness with current therapy was completed. Adverse events, barriers in adherence, and side effects were assessed and addressed if applicable. Will proceed with refill with no changes in therapy - patient progressing towards achieving therapeutic goals based on medication-specific laboratory parameters, disease state markers and outcomes. Office/provider notes have been reviewed prior to dispensing the medication. 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 Patient confirmed: Yes Med/dose confirmed: Yes Supplies needed: No supplies needed Missed doses: No Estimated days supply on hand: 12 Copay amount: 0 Delivery method: FedEx Signature required: No Delivery address: [address] [place] [id number] Delivery date: 07/14/24 Questions or concerns for the pharmacist?: No Did you have any side effects believed to be related to this medication, that resulted in hospitalization?: No Current Outpatient Medications on File Prior to Visit Medication Sig acetaminophen (TYLENOL) 325 mg tablet Take 650 mg by mouth every 6 hours as needed for pain. ibrutinib (IMBRUVICA) 140 mg capsule Take 2 capsules (280mg) by mouth once daily with a glass of water escitalopram oxalate (LEXAPRO) 10 mg tablet Take 1 tablet by mouth once daily. Oxyquinoline-Na Lauryl Sulfate (TRIMO-SCHUSTER JELLY) 0.025-0.01 % gel Use 1 Inch vaginally two times a week. losartan (COZAAR) 100 mg tablet Take 1 tablet by mouth once daily. hydroCHLOROthiazide 25 mg tablet Take 1 tablet by mouth once daily. levothyroxine (LEVOXYL) 125 mcg tablet Take 1 tablet by mouth once daily. Take on empty stomach. For thyroid. allopurinol (ZYLOPRIM) 100 mg tablet Take 1 tablet by mouth once daily. pantoprazole DR (PROTONIX) 40 mg tablet Take 1 tablet by mouth two times a day. Lactobacillus acidophilus (PROBIOTIC ORAL) Take 1 tablet by mouth once daily. fish,bora,flax oils-om3,6,9no1 1,200 mg cap Take 1 capsule by mouth once daily. OTC PRODUCT Take 1 capsule by mouth once daily. Plexus nerve No current facility-administered medications on file prior to visit. 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 06/29/21 DR 280mg daily Admin/Storage: Take with glass of water at same time each day, avoid grapefruit/[place] oranges A/E: Cardiovascular effects,GI (diarrhea, constipation, abdominal pain, decreased appettite, dyspepsia, N/V, stomatitis), HTN, TLS, rash, anemia, neutropenia, thrombocytopenia, bruising, petechia, arthralgia, asthenia, muscle spasm, musculoskeetal pain Pt is on allopurinol D/I: - Category C interaction with escitalopram, as escitalopram may enhance the adverse/toxic effect of Imbruvica. Specifically, the risk of bleeding and hemorrhage may be increased. Consider increased monitoring for signs and symptoms of bleeding in patients receiving this combination. - Category C interaction with fish oil. [place]-3 fatty acids may enhance the antiplatelet effect of Imbruvica. Consider increased monitor for evidence of bleeding/bleeding risk in patients receiving this combination. Lab: blood counts monthly or as clinically necessary renal and hepatic function uric acid levels as clinically necessary monitor blood pressure monitor for sign/symptoms of bleeding, infections, progressive multifocal encephalopathy, tumor lysis syndrome, second primary malignancies; signs/symptoms of cardiac arrhythmias and/or heart failure; ECG prior to initiation (patients with cardiac risk factors or history of cardiac arrhythmias) and during therapy if clinically indicated Est. Tx Plan Start Date: No information available Estimated Start Date Info: No information available Est. Estimated Treatment Duration: No information available Tanvi Pollard documented in this encounter [facility] 07-09-2024 Note [facility] 07-08-2024 Note [facility] 07-08-2024 History of Present illness Narrative Chief Complaint Patient presents with: Established Patient HPI: Marcelo Gonzalez is a 78 year old female who presents here today for follow up CLL. Per Dr. Salas's previous note: H/o essential hypertension, hyperlipidemia, GERD, hypothyroidism, osteoarthritis of the knees, degenerative disease of the lumbar spine and possibly RA. Patient was noted to have bilateral axillary adenopathy on a screening mammogram done 06/20/2020. Multiple axillary nodes were noted in the right breast posterior depth upper region and multiple axillary nodes were observed in the left breast posterior depth upper region. Multiple enlarged lymph nodes were observed in the left axilla on US. They had thickened cortexes. There was one enlarged lymph node in the right axilla on ultrasound. And ultrasound core needle biopsy of one of the left axillary lymph nodes was performed on 07/14/2020. 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 Current therapy: Began Imbruvica 09/14/20. Pt. called in c/o fatigue on 06/29/21-imbruvica dose lowered to [address] Salas. S/p L total knee on May 21, [address] Reid. Pt. here with her daughter. Appetite:It's good. Wt. up 6# from Mar. Energy level:I'm tired. Denies fevers or recent illness. Mouth:denies sores Resp:denies cough or sob, occ. jones long distance walking Cardiac:denies chest pain/palpitations GI:denies abd pain, n/v, moving bowels regularly :denies dysuria/hematuria Extrem:new R knee pain-seeing Ortho tomorrow Neuro:denies symptoms of neuropathy Skin:b/l LE rash, no itch/pain -improved Heme:denies bleeding The ROS is otherwise negative. Past medical history, appointments, medications, allergies reviewed. No changes. EXAM: BP 170/88 Pulse 63 Temp 36.7 C (98.1 F) (Temporal) Wt 80 kg (176 lb 5.9 oz) SpO2 96% BMI 35.09 kg/m APPEARANCE Well appearing, alert, in no acute distress, well-hydrated, well nourished. HEART RRR with normal S1 and S2, no murmurs LUNG clear to auscultation LYMPH NODES No cervical lymphadenopathy, No supraclavicular lymphadenopathy, and No axillary lymphadenopathy. ABDOMEN bowel sounds normoactive, soft, non-tender EXTREMITIES No edema NEURO Awake, alert and oriented x 3, Normal gait, and No involuntary motions. SKIN Skin color, texture, turgor normal, no suspicious rashes or lesions LABS: Latest Ref Rng 05/05/2024 06/05/2024 07/08/2024 WBC 3.70 - 11.00 k/uL 6.52 6.95 8.25 RBC 3.90 - 5.20 m/uL 3.95 3.99 4.01 Hemoglobin 11.5 - 15.5 g/dL 12.2 12.2 12.3 Hematocrit 36.0 - 46.0 % 36.9 37.1 37.2 MCV 80.0 - 100.0 fL 93.4 93.0 92.8 MCH 26.0 - 34.0 pg 30.9 30.6 30.7 MCHC 30.5 - 36.0 g/dL 33.1 32.9 33.1 RDW-CV 11.5 - 15.0 % 13.8 14.1 14.4 Platelet Count 150 - 400 k/uL 348 336 341 MPV 9.0 - 12.7 fL 10.0 10.0 10.1 Neut% % 62.3 60.8 67.0 Abs Neut (ANC) 1.45 - 7.50 k/uL 4.06 4.23 5.52 Lymph% % 18.9 20.0 16.7 Abs Lymph 1.00 - 4.00 k/uL 1.23 1.39 1.38 [place]% % 13.3 14.4 12.2 Abs [place] <0.87 k/uL 0.87 (H) 1.00 (H) 1.01 (H) Eosin% % 2.3 2.2 1.7 Abs Eosin <0.46 k/uL 0.15 0.15 0.14 Baso% % 2.6 2.2 1.8 Abs Baso <0.11 k/uL 0.17 (H) 0.15 (H) 0.15 (H) Immature Gran % % 0.6 0.4 0.6 IMMATURE GRANS (ABS) <0.10 k/uL 0.04 0.03 0.05 NRBC /100 WBC 0.0 0.0 0.0 Absolute nRBC <0.01 k/uL <0.01 <0.01 <0.01 DTYPE Auto Auto Auto CMP: Pending ASSESSMENT/PLAN: 1. CLL (chronic lymphocytic leukemia) (HCC) - ICD9: 204.10, ICD10: C91.10 - No new concerning findings on exam. - Tolerating lower dose of imbruvica better-2 capsules daily. Energy improved. - Reviewed CBC with pt. and daughter. - CMP pending. - Follow up with Cardiology/Ortho/PCP as scheduled. - Continue current dose of imbruvica. - Follow up with Chapo Baig CNP as scheduled. - CBC/CMP monthly. - Follow up in 3 months with CBC/CMP. - Pt. aware to call office with any questions/concerns. The patient indicates understanding of these issues and agrees with the plan. All documentation from previous visit of 04/07/24-Dr. Salas/myself was copied and pasted, documentation has been reviewed and edited as necessary for today's visit. Cristina Taylor APRN.GOL[employer] BALL WINDER documented in this encounter [facility] 06-16-2024 Note Addended by: ALEJO SALAS on: 06/16/2024 08:26 AM Modules accepted: Orders [facility] 06-16-2024 Telephone encounter Note The following approved medication requests have been transmitted electronically. Requested Prescriptions Signed Prescriptions Disp Refills ibrutinib (IMBRUVICA) 140 mg capsule 60 capsule 3 Sig: Take 2 capsules (280mg) by mouth once daily with a glass of water Alejo Salas DO [facility] 06-16-2024 Miscellaneous Notes Addended by: ALEJO SALAS on: 06/16/2024 08:26 AM Modules accepted: Orders The following approved medication requests have been transmitted electronically. Requested Prescriptions Signed Prescriptions Disp Refills ibrutinib (IMBRUVICA) 140 mg capsule 60 capsule 3 Sig: Take 2 capsules (280mg) by mouth once daily with a glass of water Alejo Salas DO Addended by: ANNA CORNEJO on: 06/16/2024 07:40 AM Modules accepted: Orders Please see my chart message. Pt. requesting refill of imbruvica. Thank you. Cristina Taylor APRN.CNP documented in this encounter [facility] 06-16-2024 Note Addended by: ANNA CORNEJO on: 06/16/2024 07:40 AM Modules accepted: Orders [facility] 06-16-2024 Telephone encounter Note Please see my chart message. Pt. requesting refill of imbruvica. Thank you. Cristina Taylor APRN.GOLF BALL WINDER [facility] 06-10-2024 History of Present illness Narrative [facility] Refill Assessment Medication(s): Imbruvica Patient's current medication list and adherence status to current therapy were reviewed by Specialty Pharmacy clinical pharmacist to identify any new drug interactions or non-compliance to therapy. Therapy continues to be appropriate for disease, patient response, and medical condition. Verification of therapeutic benefit and effectiveness with current therapy was completed. Adverse events, barriers in adherence, and side effects were assessed and addressed if applicable. Will proceed with refill with no changes in therapy - patient progressing towards achieving therapeutic goals based on medication-specific laboratory parameters, disease state markers and outcomes. Office/provider notes have been reviewed prior to dispensing the medication. 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 Patient confirmed: Yes Med/dose confirmed: Yes Supplies needed: No supplies needed Missed doses: No Estimated days supply on hand: 8 Copay amount: 0 Delivery method: FedEx Signature required: Waived on patient request Delivery address: [address] [place] [id number] (ring doorbell and put in screen door) Delivery date: 06/15/24 Questions or concerns for the pharmacist?: No Did you have any side effects believed to be related to this medication, that resulted in hospitalization?: No Current Outpatient Medications on File Prior to Visit Medication Sig escitalopram oxalate (LEXAPRO) 10 mg tablet Take 1 tablet by mouth once daily. Oxyquinoline-Na Lauryl Sulfate (TRIMO-SCUHSTER JELLY) 0.025-0.01 % gel Use 1 Inch vaginally two times a week. ibrutinib (IMBRUVICA) 140 mg capsule Take 2 capsules (280mg) by mouth once daily with a glass of water losartan (COZAAR) 100 mg tablet Take 1 tablet by mouth once daily. hydroCHLOROthiazide 25 mg tablet Take 1 tablet by mouth once daily. levothyroxine (LEVOXYL) 125 mcg tablet Take 1 tablet by mouth once daily. Take on empty stomach. For thyroid. allopurinol (ZYLOPRIM) 100 mg tablet Take 1 tablet by mouth once daily. pantoprazole DR (PROTONIX) 40 mg tablet Take 1 tablet by mouth two times a day. Lactobacillus acidophilus (PROBIOTIC ORAL) Take 1 tablet by mouth once daily. fish,bora,flax oils-om3,6,9no1 1,200 mg cap Take 1 capsule by mouth once daily. OTC PRODUCT Take 1 capsule by mouth once daily. Plexus nerve No current facility-administered medications on file prior to visit. 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 06/29/21 DR 280mg daily Admin/Storage: Take with glass of water at same time each day, avoid grapefruit/[place] oranges A/E: Cardiovascular effects,GI (diarrhea, constipation, abdominal pain, decreased appettite, dyspepsia, N/V, stomatitis), HTN, TLS, rash, anemia, neutropenia, thrombocytopenia, bruising, petechia, arthralgia, asthenia, muscle spasm, musculoskeetal pain Pt is on allopurinol D/I: - Category C interaction with escitalopram, as escitalopram may enhance the adverse/toxic effect of Imbruvica. Specifically, the risk of bleeding and hemorrhage may be increased. Consider increased monitoring for signs and symptoms of bleeding in patients receiving this combination. - Category C interaction with fish oil. [place]-3 fatty acids may enhance the antiplatelet effect of Imbruvica. Consider increased monitor for evidence of bleeding/bleeding risk in patients receiving this combination. Lab: blood counts monthly or as clinically necessary renal and hepatic function uric acid levels as clinically necessary monitor blood pressure monitor for sign/symptoms of bleeding, infections, progressive multifocal encephalopathy, tumor lysis syndrome, second primary malignancies; signs/symptoms of cardiac arrhythmias and/or heart failure; ECG prior to initiation (patients with cardiac risk factors or history of cardiac arrhythmias) and during therapy if clinically indicated Est. Tx Plan Start Date: No information available Estimated Start Date Info: No information available Est. Estimated Treatment Duration: No information available Tessa Hancock documented in this encounter [facility] 06-10-2024 Note [facility] 05-14-2024 Telephone encounter Note Left message for patient to return call. Aurora Stanley Ma [facility] 05-14-2024 Miscellaneous Notes Left message for patient to return call. Aurora Stanley Ma ----- Message from Michelle Hermosillo sent at 05/14/2024 10:39 AM EDT ----- No urinary tract infection No urinary tract infection documented in this encounter [facility] 05-14-2024 Telephone encounter Note ----- Message from Michelle Hermosillo sent at 05/14/2024 10:39 AM EDT ----- No urinary tract infection [facility] 05-14-2024 Progress note Formatting of t his note might be different from the original. No urinary tract infection [facility] Work Phone: 05-11-2024 Telephone encounter Note Pt phoned to ask Nelia to place order for a urine test. Reports she's been having s/s: odor, urgency, frequency, since off the AB. Reports she was waiting to call b/c her just got over flu A and she didn't want to spread that to the lab. Advised patient Nelia already has an order in the lab for her to give urine sample. Pt states she will come in to complete this order. [facility] 05-11-2024 Miscellaneous Notes Pt phoned to ask Nelia to place order for a urine test. Reports she's been having s/s: odor, urgency, frequency, since off the AB. Reports she was waiting to call b/c her just got over flu A and she didn't want to spread that to the lab. Advised patient Nelia already has an order in the lab for her to give urine sample. Pt states she will come in to complete this order. documented in this encounter [facility] 05-08-2024 History of Present illness Narrative [facility] Refill Assessment Medication(s): Imbruvica Patient's current medication list and adherence status to current therapy were reviewed by Specialty Pharmacy clinical pharmacist to identify any new drug interactions or non-compliance to therapy. Therapy continues to be appropriate for disease, patient response, and medical condition. Verification of therapeutic benefit and effectiveness with current therapy was completed. Adverse events, barriers in adherence, and side effects were assessed and addressed if applicable. Will proceed with refill with no changes in therapy - patient progressing towards achieving therapeutic goals based on medication-specific laboratory parameters, disease state markers and outcomes. Office/provider notes have been reviewed prior to dispensing the medication. 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 Patient confirmed: Yes Med/dose confirmed: Yes Supplies needed: No supplies needed Missed doses: No Estimated days supply on hand: 11 Copay amount: 0 Delivery method: FedEx Signature required: Waived on patient request Delivery address: [address] [place] [id number] Delivery date: 05/13/24 (Pt specifically asked for delivery on this date.) Questions or concerns for the pharmacist?: No Did you have any side effects believed to be related to this medication, that resulted in hospitalization?: No Current Outpatient Medications on File Prior to Visit Medication Sig escitalopram oxalate (LEXAPRO) 10 mg tablet Take 1 tablet by mouth once daily. Oxyquinoline-Na Lauryl Sulfate (TRIMO-SCHUSTER JELLY) 0.025-0.01 % gel Use 1 Inch vaginally two times a week. ibrutinib (IMBRUVICA) 140 mg capsule Take 2 capsules (280mg) by mouth once daily with a glass of water losartan (COZAAR) 100 mg tablet Take 1 tablet by mouth once daily. hydroCHLOROthiazide 25 mg tablet Take 1 tablet by mouth once daily. levothyroxine (LEVOXYL) 125 mcg tablet Take 1 tablet by mouth once daily. Take on empty stomach. For thyroid. allopurinol (ZYLOPRIM) 100 mg tablet Take 1 tablet by mouth once daily. pantoprazole DR (PROTONIX) 40 mg tablet Take 1 tablet by mouth two times a day. Lactobacillus acidophilus (PROBIOTIC ORAL) Take 1 tablet by mouth once daily. fish,bora,flax oils-om3,6,9no1 1,200 mg cap Take 1 capsule by mouth once daily. OTC PRODUCT Take 1 capsule by mouth once daily. Plexus nerve No current facility-administered medications on file prior to visit. 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 06/29/21 DR 280mg daily Admin/Storage: Take with glass of water at same time each day, avoid grapefruit/[place] oranges A/E: Cardiovascular effects,GI (diarrhea, constipation, abdominal pain, decreased appettite, dyspepsia, N/V, stomatitis), HTN, TLS, rash, anemia, neutropenia, thrombocytopenia, bruising, petechia, arthralgia, asthenia, muscle spasm, musculoskeetal pain Pt is on allopurinol D/I: - Category C interaction with escitalopram, as escitalopram may enhance the adverse/toxic effect of Imbruvica. Specifically, the risk of bleeding and hemorrhage may be increased. Consider increased monitoring for signs and symptoms of bleeding in patients receiving this combination. - Category C interaction with fish oil. [place]-3 fatty acids may enhance the antiplatelet effect of Imbruvica. Consider increased monitor for evidence of bleeding/bleeding risk in patients receiving this combination. Lab: blood counts monthly or as clinically necessary renal and hepatic function uric acid levels as clinically necessary monitor blood pressure monitor for sign/symptoms of bleeding, infections, progressive multifocal encephalopathy, tumor lysis syndrome, second primary malignancies; signs/symptoms of cardiac arrhythmias and/or heart failure; ECG prior to initiation (patients with cardiac risk factors or history of cardiac arrhythmias) and during therapy if clinically indicated Est. Tx Plan Start Date: No information available Estimated Start Date Info: No information available Est. Estimated Treatment Duration: No information available Tessa Hancock documented in this encounter [facility] 05-08-2024 Note [facility] 04-20-2024 Telephone encounter Note Patient was advised of results and provider message. She verbalizes understanding. Aurora Stanley MA April 20, 2024 10:57 AM [facility] 04-20-2024 Miscellaneous Notes Patient was advised of results and provider message. She verbalizes understanding. Aurora Stanley MA April 20, 2024 10:57 AM ----- Message from Michelle Hermosillo sent at 04/20/2024 7:52 AM EST ----- Patient does have a urinary tract infection with E. coli again. The Cipro I gave her should be effective. We will repeat culture when she finishes the Cipro to make certain that we have eradicated the bacteria. Patient does have a urinary tract infection with E. coli again. The Cipro I gave her should be effective. We will repeat culture when she finishes the Cipro to make certain that we have eradicated the bacteria. documented in this encounter [facility] 04-20-2024 Telephone encounter Note ----- Message from Michelle Hermosillo sent at 04/20/2024 7:52 AM EST ----- Patient does have a urinary tract infection with E. coli again. The Cipro I gave her should be effective. We will repeat culture when she finishes the Cipro to make certain that we have eradicated the bacteria. [facility] 04-20-2024 Progress note Formatting of t his note might be different from the original. Patient does have a urinary tract infection with E. coli again. The Cipro I gave her should be effective. We will repeat culture when she finishes the Cipro to make certain that we have eradicated the bacteria. [facility] 04-17-2024 Instructions Michelle Hermosillo APRN.CNP - 04/17/2024 12:00 PM EST - Cipro 2 x day for 5 days - Fluconazole 150 mg x 1 documented in this encounter [facility] 04-17-2024 Note [facility] 04-17-2024 History of Present illness Narrative This is a 78 year old female who presents today with: Patient presents with: UTI: Dysuria and frequency for 3 days HISTORY OF PRESENT ILLNESS: Marcelo Gonzalez is a 78 year old female. Patient presents with: UTI: Dysuria and frequency for 3 days Burning with urination. No hematuria that she has seen Always cold, no fever that she knows of. Tired all the time No weakness Gets yeast infections with antibiotics PAST MEDICAL HISTORY: PAST MEDICAL HISTORY Diagnosis Date Allergic rhinitis due to animal hair and dander + testing dander, dust, outside. [facility]. Arthritis of both knees 03/04/2012 CKD (chronic kidney disease), stage III (HCC) Degeneration of intervertebral disc, site unspecified Degenerative arthritis of hip 03/04/2012 Diverticulosis of colon (without mention of hemorrhage) Endometriosis Family history of malignant neoplasm of gastrointestinal tract Hyperlipidemia Hypertension Internal hemorrhoids without mention of complication Other specified gastritis Unspecified hypothyroidism PAST SURGICAL HISTORY Procedure Laterality Date ARTHRP ACETBLR/PROX FEM PROSTC AGRFT/ALGRFT 2012 Left Hip ARTHRP ACETBLR/PROX FEM PROSTC AGRFT/ALGRFT Right 01/21/2017 Dr. Reid COLONOSCOPY FLX DX W/COLLJ SPEC WHEN PFRMD 12/16/08 DILATION & CURETTAGE DX&/THER NONOBSTETRIC 1969' multiple LAMINECTOMY W/O FFD > 2 VERT SEG LUMBAR 2009 titanium chris PAST SURGICAL HISTORY OF 2001 FOOT SURGERY PAST SURGICAL HISTORY OF Jan 2004 Dr. Mclean - Back Surgery-upper back - metal rods and cadaver bone TOTAL ABDOMINAL HYSTERECT W/WO RMVL TUBE OVARY 1986 Hysterectomy, ANDREW/BSO ALLERGIES Lyrica [Pregabalin], Penicillins, Amoxicillin, Codeine, Doxycycline Hcl, Fentanyl, Keflex [Cephalexin], Latex, Lisinopril, Macrobid [Nitrofurantoin Monohyd/M-Cryst], Meloxicam, Mirapex [Pramipexole], Oxycodone, Sulfa (Sulfonamide Antibiotics), Trazodone (Bulk), Ultram [Tramadol Hcl], Versed [Midazolam Hcl], and Zetia [Ezetimibe] MEDICATIONS Current Outpatient Medications Medication Sig escitalopram oxalate (LEXAPRO) 10 mg tablet Take 1 tablet by mouth once daily. Oxyquinoline-Na Lauryl Sulfate (TRIMO-SCHUSTER JELLY) 0.025-0.01 % gel Use 1 Inch vaginally two times a week. ibrutinib (IMBRUVICA) 140 mg capsule Take 2 capsules (280mg) by mouth once daily with a glass of water losartan (COZAAR) 100 mg tablet Take 1 tablet by mouth once daily. hydroCHLOROthiazide 25 mg tablet Take 1 tablet by mouth once daily. levothyroxine (LEVOXYL) 125 mcg tablet Take 1 tablet by mouth once daily. Take on empty stomach. For thyroid. allopurinol (ZYLOPRIM) 100 mg tablet Take 1 tablet by mouth once daily. pantoprazole DR (PROTONIX) 40 mg tablet Take 1 tablet by mouth two times a day. Lactobacillus acidophilus (PROBIOTIC ORAL) Take 1 tablet by mouth once daily. fish,bora,flax oils-om3,6,9no1 1,200 mg cap Take 1 capsule by mouth once daily. OTC PRODUCT Take 1 capsule by mouth once daily. Plexus nerve No current facility-administered medications for this visit. FAMILY HISTORY Problem Relation Age of Onset Hypertension Mother Stroke Mother other (DIVERTICULITIS) Mother Heart Father Hypertension Father Colon Cancer Sister age 48-50 Diabetes Maternal Grandmother Thyroid Sister X-2 Thyroid Child 2 Daughters Asthma No Family History Allergies No Family History Social History Tobacco Use Smoking status: Former Types: Cigarettes Smokeless tobacco: Never Tobacco comments: None since age 20s. No smoking in childhood home. Spouse of 56 years stopped smoking 1974. Vaping Use Vaping status: Never Used Substance Use Topics Alcohol use: No Drug use: No EXAM: BP 118/68 Pulse (!) 58 Temp 37.1 C (98.7 F) (Right Tympanic) Wt 78.5 kg (173 lb) SpO2 98% BMI 34.42 kg/m PHYSICAL EXAM: Physical Exam Vitals reviewed. Constitutional: Appearance: Normal appearance. HENT: Head: Normocephalic. Cardiovascular: Rate and Rhythm: Normal rate and regular rhythm. Pulses: Normal pulses. Heart sounds: Normal heart sounds. Pulmonary: Effort: Pulmonary effort is normal. Breath sounds: Normal breath sounds. Musculoskeletal: General: Normal range of motion. Comments: Moves all ext. And walks with quad cane Neurological: Mental Status: She is alert. LABS: Urine with GFR 46, recent e coli ASSESSMENT/PLAN: 1. Dysuria - ICD9: 788.1, ICD10: R30.0 acute - UA positive for nitrates - Patient education for prevention given - UA DIP, URINE (POC) - Treat with Cipro 2 x day for 5 days - Fluconazole 150 mg x 1 Discussed treatment plan and patient voices understanding. Patient's questions answered appropriately. Medications and potential side effects were discussed and patient voices understanding. Return to the office as scheduled or as needed for worsening/no improvement. Michelle Hermosillo APRN.CNP documented in this encounter [facility] 04-08-2024 Telephone encounter Note This was sent in yesterday. Jane Baig APRN.CNP [facility] 04-08-2024 Miscellaneous Notes This was sent in yesterday. Jane Baig APRN.[employer] Change of pharmacy Requested Prescriptions Pending Prescriptions Disp Refills escitalopram oxalate (LEXAPRO) 10 mg tablet 90 tablet 1 Sig: Take 1 tablet by mouth once daily. Date of last office visit in primary care: 11/18/2023 Date of next office visit in primary care: Visit date not found Please advise. Thank you. Michelle Reveles LPN. documented in this encounter [facility] 04-07-2024 Telephone encounter Note Change of pharmacy Requested Prescriptions Pending Prescriptions Disp Refills escitalopram oxalate (LEXAPRO) 10 mg tablet 90 tablet 1 Sig: Take 1 tablet by mouth once daily. Date of last office visit in primary care: 11/18/2023 Date of next office visit in primary care: Visit date not found Please advise. Thank you. Michelle Reveles LPN. [facility] 04-07-2024 Note [facility] 04-07-2024 History of Present illness Narrative Chief Complaint Patient presents with: Established Patient HPI: Marcelo Gonzalez is a 78 year old female who presents here today for follow up CLL. Per Dr. Salas's previous note: H/o essential hypertension, hyperlipidemia, GERD, hypothyroidism, osteoarthritis of the knees, degenerative disease of the lumbar spine and possibly RA. Patient was noted to have bilateral axillary adenopathy on a screening mammogram done 06/20/2020. Multiple axillary nodes were noted in the right breast posterior depth upper region and multiple axillary nodes were observed in the left breast posterior depth upper region. Multiple enlarged lymph nodes were observed in the left axilla on US. They had thickened cortexes. There was one enlarged lymph node in the right axilla on ultrasound. And ultrasound core needle biopsy of one of the left axillary lymph nodes was performed on 07/14/2020. 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 Current therapy: Began Imbruvica 09/14/20. Pt. called in c/o fatigue on 06/29/21-imbruvica dose lowered to [address] Salas. S/p L total knee on May 21, [address] Reid. Pt. here with her daughter and spouse. Appetite:It's good. Wt. up 3#. Energy level:I've got energy. Denies fevers-since last week Mouth:denies sores Resp:denies cough or sob, occ. jones long distance walking Cardiac:denies chest pain/palpitations GI:denies abd pain, n/v, moving bowels regularly :denies dysuria/hematuria Extrem:denies pain Neuro:denies symptoms of neuropathy Skin:b/l LE rash, no itch/pain I've had it on and off for years. Heme:denies bleeding The ROS is otherwise negative. Past medical history, appointments, medications, allergies reviewed. No changes. EXAM: BP 120/76 Pulse 61 Temp 36.8 C (98.3 F) (Temporal) Wt 77.3 kg (170 lb 6.7 oz) SpO2 97% BMI 33.90 kg/m APPEARANCE Well appearing, alert, in no acute distress, well-hydrated, well nourished. HEART RRR with normal S1 and S2, no murmurs LUNG clear to auscultation LYMPH NODES No cervical lymphadenopathy, No supraclavicular lymphadenopathy, and No axillary lymphadenopathy. ABDOMEN bowel sounds normoactive, soft, non-tender EXTREMITIES No edema NEURO Awake, alert and oriented x 3, Normal gait, and No involuntary motions. SKIN Skin color, texture, turgor normal, no suspicious rashes or lesions LABS: Latest Ref Rng 02/04/2024 03/03/2024 04/07/2024 WBC 3.70 - 11.00 k/uL 7.62 7.27 7.74 RBC 3.90 - 5.20 m/uL 3.99 3.97 3.95 Hemoglobin 11.5 - 15.5 g/dL 12.3 12.1 12.3 Hematocrit 36.0 - 46.0 % 37.4 37.5 37.4 MCV 80.0 - 100.0 fL 93.7 94.5 94.7 MCH 26.0 - 34.0 pg 30.8 30.5 31.1 MCHC 30.5 - 36.0 g/dL 32.9 32.3 32.9 RDW-CV 11.5 - 15.0 % 14.3 14.2 13.5 Platelet Count 150 - 400 k/uL 317 318 285 MPV 9.0 - 12.7 fL 10.2 10.3 10.4 Neut% % 58.4 57.6 66.9 Abs Neut (ANC) 1.45 - 7.50 k/uL 4.45 4.19 5.18 Lymph% % 21.8 22.3 16.4 Abs Lymph 1.00 - 4.00 k/uL 1.66 1.62 1.27 [place]% % 15.2 14.6 12.4 Abs [place] <0.87 k/uL 1.16 (H) 1.06 (H) 0.96 (H) Eosin% % 2.0 1.9 1.4 Abs Eosin <0.46 k/uL 0.15 0.14 0.11 Baso% % 2.2 1.8 2.5 Abs Baso <0.11 k/uL 0.17 (H) 0.13 (H) 0.19 (H) Immature Gran % % 0.4 1.8 0.4 IMMATURE GRANS (ABS) <0.10 k/uL 0.03 0.13 (H) 0.03 NRBC /100 WBC 0.0 0.0 0.0 Absolute nRBC <0.01 k/uL <0.01 <0.01 <0.01 DTYPE Auto Auto Auto Latest Ref Rng 02/04/2024 03/03/2024 04/07/2024 Protein, Total 6.3 - 8.0 g/dL 7.0 6.5 7.1 Albumin 3.9 - 4.9 g/dL 4.3 4.0 4.2 Calcium 8.5 - 10.2 mg/dL 9.2 9.1 9.5 Bilirubin, Total 0.2 - 1.3 mg/dL 0.2 0.3 0.4 Alkaline Phosphatase 34 - 123 U/L 94 98 115 AST 13 - 35 U/L 20 15 18 ALT 7 - 38 U/L 15 11 11 Glucose 74 - 99 mg/dL 74 87 91 BUN 7 - 21 mg/dL 24 (H) 21 21 Creatinine 0.58 - 0.96 mg/dL 1.06 (H) 1.05 (H) 1.22 (H) Sodium 136 - 144 mmol/L 136 138 137 Potassium 3.7 - 5.1 mmol/L 3.9 3.8 3.8 Chloride 98 - 107 mmol/L 100 100 100 CO2 22 - 30 mmol/L 26 27 27 Anion Gap 8 - 15 mmol/L 10 11 10 eGFR >=60 mL/min/1.73m 54 (L) 54 (L) 46 (L) ASSESSMENT/PLAN: 1. CLL (chronic lymphocytic leukemia) (HCC) - ICD9: 204.10, ICD10: C91.10 - No new concerning findings on exam. - Tolerating lower dose of imbruvica better-2 capsules daily. Energy improved. - Reviewed CBC/CMP with pt. - Follow up with Cardiology/Ortho/PCP as scheduled. - Continue current dose of imbruvica. - Follow up with Chapo Baig CNP as scheduled. - CBC/CMP monthly. - Follow up in 3 months with CBC/CMP. - Pt. aware to call office with any questions/concerns. The patient indicates understanding of these issues and agrees with the plan. All documentation from previous visit of 12/31/23-Dr. Salas/myself was copied and pasted, documentation has been reviewed and edited as necessary for today's visit. Cristina Taylor APRN.EDITA documented in this encounter [facility] 04-06-2024 History of Present illness Narrative [facility] Assessment Medication(s): Imbruvica Patient's current medication list and adherence status to current therapy were reviewed by Specialty Pharmacy clinical pharmacist to identify any new drug interactions or non-compliance to therapy. Therapy continues to be appropriate for disease, patient response, and medical condition. Verification of therapeutic benefit and effectiveness with current therapy was completed. Adverse events, barriers in adherence, and side effects were assessed and addressed if applicable. Will proceed with refill with no changes in therapy - patient progressing towards achieving therapeutic goals based on medication-specific laboratory parameters, disease state markers and outcomes. Office/provider notes have been reviewed prior to dispensing the medication. 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 Patient confirmed: Yes Med/dose confirmed: Yes Missed doses: No Estimated days supply on hand: 13 Copay amount: 0 Delivery method: FedEx Signature required: Waived on patient request Delivery address: [address] [place] [address] (ring doorbell and leave in screen door) Delivery date: 04/16/24 Questions or concerns for the pharmacist?: No Did you have any side effects believed to be related to this medication, that resulted in hospitalization?: No Current Outpatient Medications on File Prior to Visit Medication Sig guaiFENesin (MUCINEX) 600 mg 12 hr tablet Take 1 tablet by mouth two times a day for 10 days. benzonatate (TESSALON PERLE) 100 mg capsule Take 2 capsules by mouth three times a day as needed for up to 10 days. Oxyquinoline-Na Lauryl Sulfate (TRIMO-SCHUSTER JELLY) 0.025-0.01 % gel Use 1 Inch vaginally two times a week. ibrutinib (IMBRUVICA) 140 mg capsule Take 2 capsules (280mg) by mouth once daily with a glass of water losartan (COZAAR) 100 mg tablet Take 1 tablet by mouth once daily. hydroCHLOROthiazide 25 mg tablet Take 1 tablet by mouth once daily. levothyroxine (LEVOXYL) 125 mcg tablet Take 1 tablet by mouth once daily. Take on empty stomach. For thyroid. allopurinol (ZYLOPRIM) 100 mg tablet Take 1 tablet by mouth once daily. pantoprazole DR (PROTONIX) 40 mg tablet Take 1 tablet by mouth two times a day. Lactobacillus acidophilus (PROBIOTIC ORAL) Take 1 tablet by mouth once daily. fish,bora,flax oils-om3,6,9no1 1,200 mg cap Take 1 capsule by mouth once daily. escitalopram oxalate (LEXAPRO) 10 mg tablet Take 1 tablet by mouth once daily. OTC PRODUCT Take 1 capsule by mouth once daily. Plexus nerve No current facility-administered medications on file prior to visit. 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 06/29/21 DR 280mg daily Admin/Storage: Take with glass of water at same time each day, avoid grapefruit/[place] oranges A/E: Cardiovascular effects,GI (diarrhea, constipation, abdominal pain, decreased appettite, dyspepsia, N/V, stomatitis), HTN, TLS, rash, anemia, neutropenia, thrombocytopenia, bruising, petechia, arthralgia, asthenia, muscle spasm, musculoskeetal pain Pt is on allopurinol D/I: - Category C interaction with escitalopram, as escitalopram may enhance the adverse/toxic effect of Imbruvica. Specifically, the risk of bleeding and hemorrhage may be increased. Consider increased monitoring for signs and symptoms of bleeding in patients receiving this combination. - Category C interaction with fish oil. [place]-3 fatty acids may enhance the antiplatelet effect of Imbruvica. Consider increased monitor for evidence of bleeding/bleeding risk in patients receiving this combination. Lab: blood counts monthly or as clinically necessary renal and hepatic function uric acid levels as clinically necessary monitor blood pressure monitor for sign/symptoms of bleeding, infections, progressive multifocal encephalopathy, tumor lysis syndrome, second primary malignancies; signs/symptoms of cardiac arrhythmias and/or heart failure; ECG prior to initiation (patients with cardiac risk factors or history of cardiac arrhythmias) and during therapy if clinically indicated Est. Tx Plan Start Date: No information available Estimated Start Date Info: No information available Est. Estimated Treatment Duration: No information available Tessa Hancock documented in this encounter [facility] 04-06-2024 Note [facility] 04-03-2024 Telephone encounter Note Patient given results and verbalized understanding of instructions given. Mihaela Loera LPN [facility] 04-03-2024 Miscellaneous Notes Patient given results and verbalized understanding of instructions given. Mihaela Loera LPN Patient is negative for COVID flu and RSV documented in this encounter [facility] 04-03-2024 Telephone encounter Note Patient is negative for COVID flu and RSV [facility] Work Phone: 04-02-2024 Note SARS-COV-2 (AGENT OF COVID-19) RNA: Not detected INFLUENZA A RNA: Not detected INFLUENZA B RNA: Not detected RESPIRATORY SYNCYTIAL VIRUS (RSV) RNA: Not detected [facility] Comment on above: Performed By: #### [id number] ####[facility] LABCLIA [id number] [address] OF [facility] 04-02-2024 Instructions Carmen Le APRN.[employer] - 04/02/2024 6:31 PM EST ASSESSMENT/PLAN: 1. Acute cough - ICD9: 786.2, ICD10: R05.1 (primary diagnosis) - XR CHEST 2V FRONTAL/LAT IMPRESSION: Stable exam with no definite evidence of acute radiographic abnormality. Still Operator Batch Or Continuous: FELIX Transcribe Date/Time: Apr 02 2024 6:09P Dictated by : RHONDA CHAVEZ MD - GUAIFENESIN ER 600 MG TABLET, EXTENDED RELEASE 12 HR - BENZONATATE 100 MG CAPSULE 2. Flu-like symptoms - ICD9: 780.99, ICD10: R68.89 - COVID & INFLUENZA A/B & RSV PCR, ROUTINE 3. Acute upper respiratory infection, unspecified - ICD9: 465.9, ICD10: J06.9 - Discussed viral etiology and rationale for treatment. - Symptomatic treatment with prn analgesia - Supportive care with fluids and rest - COVID & INFLUENZA A/B & RSV PCR, ROUTINE - Message sent to HEM/ONC provider regarding Paxlovid if patient is positive for COVID- EPIC shows an interaction between the two medications. - Follow-up with your PCP in 3-5 days if symptoms have not improved or sooner if symptoms worsen - Discussed red flags and need for immediate medical evaluation if any occur. - Discussed supportive care treatment with fluids, rest and analgesia. - Discussed expected course of illness Carmen Le APRN.EDITA documented in this encounter [facility] 04-02-2024 History of Present illness Narrative Radiology Service Progress Note PATIENT NAME: Marcelo Gonzalez DATE OF SERVICE: April 02, 2024 TIME: 5:58 PM PATIENT IDENTITY VERIFICATION COMPLETED USING TWO (2) IDENTIFIERS: Name and Date of confirmed by patient verbally. FALL SCREENING: Has the patient had 2 falls in the last year or 1 fall with injury or currently using an Ambulatory Assistive Device (Walker, Cane, Wheelchair, Crutches, etc.)? Yes, Patient High Risk for Falls What interventions were put in place to prevent falls during this visit? Offered Assistance with Transfers/Clothing, Instructed Patient to Remain Seated (Not on Exam Table) Until Exam, and Increased Observations by Caregivers PATIENT GENDER DATA: Assigned female at . status: : No status: NO. PATIENT RELEVANT IMPLANT DATA REVIEWED: Not Applicable PATIENT PRESENTS WITH AN IMPLANTABLE OR ATTACHED GROCERY CLERK CHECKING: No RADIOLOGY DEPARTMENT: General X-ray: Exam(s) Completed: Chest X-Ray PERIPHERAL IV DATA: Not applicable SIGNED BY: Chelsie Aquino April 02, 2024 5:58 PM documented in this encounter [facility] 04-02-2024 Note [facility] 04-02-2024 Note [facility] 04-02-2024 History of Present illness Narrative Subjective Cough Associated symptoms include headaches, sore throat and shortness of breath. Pertinent negatives include no chest pain, no chills, no ear pain and no myalgias. Marcelo Gonzalez is a 78 year old female who presents with cough, chills, nasal congestion and drainage, and diarrhea x 5 days. She has a history of CLL. She has not had a fever. She has been taking Oscillococcinum at home for symptoms. Review of Systems Constitutional: Positive for malaise/fatigue. Negative for chills and fever. HENT: Positive for congestion and sore throat. Negative for ear pain. Respiratory: Positive for cough, sputum production and shortness of breath. Cardiovascular: Negative for chest pain. Gastrointestinal: Positive for diarrhea. Negative for abdominal pain, nausea and vomiting. Musculoskeletal: Negative for myalgias. Skin: Negative for itching and rash. Neurological: Positive for headaches. There were no vitals taken for this visit. PAST MEDICAL HISTORY Diagnosis Date Allergic rhinitis due to animal hair and dander + testing dander, dust, outside. [facility]. Arthritis of both knees 03/04/2012 CKD (chronic kidney disease), stage III (HCC) Degeneration of intervertebral disc, site unspecified Degenerative arthritis of hip 03/04/2012 Diverticulosis of colon (without mention of hemorrhage) Endometriosis Family history of malignant neoplasm of gastrointestinal tract Hyperlipidemia Hypertension Internal hemorrhoids without mention of complication Other specified gastritis Unspecified hypothyroidism PAST SURGICAL HISTORY Procedure Laterality Date ARTHRP ACETBLR/PROX FEM PROSTC AGRFT/ALGRFT 2012 Left Hip ARTHRP ACETBLR/PROX FEM PROSTC AGRFT/ALGRFT Right 01/21/2017 Dr. Reid COLONOSCOPY FLX DX W/COLLJ SPEC WHEN PFRMD 12/16/08 DILATION & CURETTAGE DX&/THER NONOBSTETRIC 1969's multiple LAMINECTOMY W/O FFD > 2 VERT SEG LUMBAR 2009 titanium chris PAST SURGICAL HISTORY OF 2001 FOOT SURGERY PAST SURGICAL HISTORY OF Jan 2004 Dr. Mclean - Back Surgery-upper back - metal rods and cadaver bone TOTAL ABDOMINAL HYSTERECT W/WO RMVL TUBE OVARY 1986 Hysterectomy, ANDREW/BSO ALLERGIES Lyrica [Pregabalin], Penicillins, Amoxicillin, Codeine, Doxycycline Hcl, Fentanyl, Keflex [Cephalexin], Latex, Lisinopril, Macrobid [Nitrofurantoin Monohyd/M-Cryst], Meloxicam, Mirapex [Pramipexole], Oxycodone, Sulfa (Sulfonamide Antibiotics), Trazodone (Bulk), Ultram [Tramadol Hcl], Versed [Midazolam Hcl], and Zetia [Ezetimibe] MEDICATIONS Oxyquinoline-Na Lauryl Sulfate (TRIMO-SCHUSTER JELLY) 0.025-0.01 % gel Use 1 Inch vaginally two times a week. ibrutinib (IMBRUVICA) 140 mg capsule Take 2 capsules (280mg) by mouth once daily with a glass of water losartan (COZAAR) 100 mg tablet Take 1 tablet by mouth once daily. hydroCHLOROthiazide 25 mg tablet Take 1 tablet by mouth once daily. levothyroxine (LEVOXYL) 125 mcg tablet Take 1 tablet by mouth once daily. Take on empty stomach. For thyroid. allopurinol (ZYLOPRIM) 100 mg tablet Take 1 tablet by mouth once daily. pantoprazole DR (PROTONIX) 40 mg tablet Take 1 tablet by mouth two times a day. Lactobacillus acidophilus (PROBIOTIC ORAL) Take 1 tablet by mouth once daily. fish,bora,flax oils-om3,6,9no1 1,200 mg cap Take 1 capsule by mouth once daily. OTC PRODUCT Take 1 capsule by mouth once daily. Plexus nerve escitalopram oxalate (LEXAPRO) 10 mg tablet Take 1 tablet by mouth once daily. FAMILY HISTORY Problem Relation Age of Onset Hypertension Mother Stroke Mother other (DIVERTICULITIS) Mother Heart Father Hypertension Father Colon Cancer Sister age 48-50 Diabetes Maternal Grandmother Thyroid Sister X-2 Thyroid Child 2 Daughters Asthma No Family History Allergies No Family History Social History Tobacco Use Smoking status: Former Types: Cigarettes Smokeless tobacco: Never Tobacco comments: None since age 20s. No smoking in childhood home. Spouse of 56 years stopped smoking 1974. Vaping Use Vaping status: Never Used Substance Use Topics Alcohol use: No Drug use: No Objective Physical Exam Vitals and nursing note reviewed. Constitutional: General: She is not in acute distress. Appearance: Normal appearance. She is not ill-appearing. HENT: Right Ear: Tympanic membrane, ear canal and external ear normal. Left Ear: Tympanic membrane, ear canal and external ear normal. Nose: Congestion present. Mouth/Throat: Mouth: Mucous membranes are moist. Pharynx: Uvula midline. Posterior oropharyngeal erythema present. No oropharyngeal exudate. Cardiovascular: Rate and Rhythm: Regular rhythm. Bradycardia present. Heart sounds: Normal heart sounds. Pulmonary: Effort: Pulmonary effort is normal. No respiratory distress. Breath sounds: Normal breath sounds. No wheezing or rales. Musculoskeletal: Cervical back: Neck supple. Lymphadenopathy: Cervical: No cervical adenopathy. Skin: General: Skin is warm and dry. Findings: No erythema or rash. Neurological: Mental Status: She is alert. ASSESSMENT/PLAN: 1. Acute cough - ICD9: 786.2, ICD10: R05.1 (primary diagnosis) - XR CHEST 2V FRONTAL/LAT IMPRESSION: Stable exam with no definite evidence of acute radiographic abnormality. Still Operator Batch Or Continuous: FELIX Transcribe Date/Time: Apr 02 2024 6:09P Dictated by : RHONDA CHAVEZ MD - GUAIFENESIN ER 600 MG TABLET, EXTENDED RELEASE 12 HR - BENZONATATE 100 MG CAPSULE 2. Flu-like symptoms - ICD9: 780.99, ICD10: R68.89 - COVID & INFLUENZA A/B & RSV PCR, ROUTINE 3. Acute upper respiratory infection, unspecified - ICD9: 465.9, ICD10: J06.9 - Discussed viral etiology and rationale for treatment. - Symptomatic treatment with prn analgesia - Supportive care with fluids and rest - COVID & INFLUENZA A/B & RSV PCR, ROUTINE - Message sent to HEM/ONC provider regarding Paxlovid if patient is positive for COVID- EPIC shows an interaction between the two medications. - Follow-up with your PCP in 3-5 days if symptoms have not improved or sooner if symptoms worsen - Discussed red flags and need for immediate medical evaluation if any occur. - Discussed supportive care treatment with fluids, rest and analgesia. - Discussed expected course of illness Carmen Le APRN.[employer]ER documented in this encounter [facility] 03-30-2024 Telephone encounter Note Care Coordination Triage Note [facility] Situation: Patient reports Flu/Covid Background: CLL, on Ibrutinib 280 mg once daily, started ibrutinib 2020 Assessment: Called patient. Patient added her daughter Cristine to her patient contact list. When did your symptoms first start? Saturday night Do you have a fever, cough, diarrhea, body aches, congestion, runny nose, sore throat or feel short of breath? Headache, sore throat, voice is changing, diarrhea, I'm cold. Asked patient to check her temperature, it was 99 F while on the phone. Body aches: just a headache Patient has SOB nothing unusual, a little worse compared to baseline. Cough- dry cough at night. Diarrhea- 4 times today, started yesterday. Leg pain: My right leg hurts at the back of my calf, started 5 days. Denies swelling. Patient stated she has had redness on her legs for a long time. Patient is not on a blood thinner. Patient stated Cristina is aware of the redness she has had on her lower extremities. -- will discuss this with Dr. Salas. Have you been around anyone diagnosed with strep or the flu/influenza? Granddaughter was sick over the weekend Have you been tested for covid? no Called was disconnected. Contacted Cristine and discussed the conversation this nurse had with her mother. Cristine stated she was unaware of the calf pain. NOTE: If symptoms >5 days, patient is not Paxlovid eligible Recommendations: Per RNCC, daughter instructed to have patient go to the [facility] ED for evaluation and be tested for influenza/COVID and also further evaluate the c/o RLE pain. Patient is still in the window of receiving Paxlovid. Patient does not have an in-home test. Dr. Salas agrees ED. Cathy Lawton RN March 30, 2024 4:00 PM [facility] 03-30-2024 Miscellaneous Notes Care Coordination Triage Note [facility] Situation: Patient reports Flu/Covid Background: CLL, on Ibrutinib 280 mg once daily, started ibrutinib 2020 Assessment: Called patient. Patient added her daughter Cristine to her patient contact list. When did your symptoms first start? Saturday night Do you have a fever, cough, diarrhea, body aches, congestion, runny nose, sore throat or feel short of breath? Headache, sore throat, voice is changing, diarrhea, I'm cold. Asked patient to check her temperature, it was 99 F while on the phone. Body aches: just a headache Patient has SOB nothing unusual, a little worse compared to baseline. Cough- dry cough at night. Diarrhea- 4 times today, started yesterday. Leg pain: My right leg hurts at the back of my calf, started 5 days. Denies swelling. Patient stated she has had redness on her legs for a long time. Patient is not on a blood thinner. Patient stated Cristina is aware of the redness she has had on her lower extremities. -- will discuss this with Dr. Salas. Have you been around anyone diagnosed with strep or the flu/influenza? Granddaughter was sick over the weekend Have you been tested for covid? no Called was disconnected. Contacted Cristine and discussed the conversation this nurse had with her mother. Cristine stated she was unaware of the calf pain. NOTE: If symptoms >5 days, patient is not Paxlovid eligible Recommendations: Per RNCC, daughter instructed to have patient go to the [facility] ED for evaluation and be tested for influenza/COVID and also further evaluate the c/o RLE pain. Patient is still in the window of receiving Paxlovid. Patient does not have an in-home test. Dr. Salas agrees ED. Cathy Lawton RN March 30, 2024 4:00 PM Cristine called stating patient has flu symptoms. She called asking if patient can take OTC - oscillococcinum. Please advise documented in this encounter [facility] 03-30-2024 Telephone encounter Note Cristine called stating patient has flu symptoms. She called asking if patient can take OTC - oscillococcinum. Please advise [facility] Work Phone: 03-24-2024 Telephone encounter Note Prescription Refill Information The patient has been identified by name and date of : Yes Caregiver verified no other encounters exist for this prescription request: Yes Caregiver confirmed with patient/requestor that no other refills are due, in the near future, with this provider at this time: Yes The last office visit in the department: 11-18-23 Does the patient have a future office visit with this provider/department: No Requested Prescriptions Pending Prescriptions Disp Refills Oxyquinoline-Na Lauryl Sulfate (TRIMO-SCHUSTER JELLY) 0.025-0.01 % gel 113.4 g 1 Sig: Use 1 Inch vaginally two times a week. Shawna Dorsey March 24, 2024 10:44 AM [facility] Work Phone: 03-24-2024 Miscellaneous Notes Prescription Refill Information The patient has been identified by name and date of : Yes Caregiver verified no other encounters exist for this prescription request: Yes Caregiver confirmed with patient/requestor that no other refills are due, in the near future, with this provider at this time: Yes The last office visit in the department: 11-18-23 Does the patient have a future office visit with this provider/department: No Requested Prescriptions Pending Prescriptions Disp Refills Oxyquinoline-Na Lauryl Sulfate (TRIMO-SCHUSTER JELLY) 0.025-0.01 % gel 113.4 g 1 Sig: Use 1 Inch vaginally two times a week. Shawna Drosey March 24, 2024 10:44 AM documented in this encounter [facility] 03-13-2024 History of Present illness Narrative Images from the original note were not included. Patient has been enrolled in a new $[id number] jamari for Dx: CLL through [employer] 12/22/2023 to 12/20/2024. documented in this encounter [facility] 03-13-2024 Note HNO ID: [id number] Author: ?, ?, ? Service: ? Author Type: ? Type: Progress Notes Filed: 03/13/2024 12:08 Note Text: Patient has been enrolled in a new $[id number] jamari for Dx: CLL through [employer] 12/22/2023 to 12/20/2024. [facility] 03-13-2024 Note [facility] 03-12-2024 Telephone encounter Note Refill sent. Alejo Salas DO [facility] 03-12-2024 Miscellaneous Notes Refill sent. Alejo Salas DO Please send Rx to [facility]. Anna Cornejo LPN documented in this encounter [facility] 03-12-2024 Telephone encounter Note Please send Rx to [facility]. Anna Cornejo LPN [facility] 02-28-2024 Telephone encounter Note Prescription Refill Information The patient has been identified by name and date of : Yes Caregiver verified no other encounters exist for this prescription request: Yes Caregiver confirmed with patient/requestor that no other refills are due, in the near future, with this provider at this time: Yes The last office visit in the department: 11-18-23 Does the patient have a future office visit with this provider/department: No Requested Prescriptions Pending Prescriptions Disp Refills losartan (COZAAR) 100 mg tablet 90 tablet 3 Sig: Take 1 tablet by mouth once daily. hydroCHLOROthiazide 25 mg tablet 90 tablet 3 Sig: Take 1 tablet by mouth once daily. levothyroxine (LEVOXYL) 125 mcg tablet 30 tablet 2 Sig: Take 1 tablet by mouth once daily. Take on empty stomach. For thyroid. Sherry Car February 28, 2024 12:47 PM [facility] 02-28-2024 Miscellaneous Notes Prescription Refill Information The patient has been identified by name and date of : Yes Caregiver verified no other encounters exist for this prescription request: Yes Caregiver confirmed with patient/requestor that no other refills are due, in the near future, with this provider at this time: Yes The last office visit in the department: 11-18-23 Does the patient have a future office visit with this provider/department: No Requested Prescriptions Pending Prescriptions Disp Refills losartan (COZAAR) 100 mg tablet 90 tablet 3 Sig: Take 1 tablet by mouth once daily. hydroCHLOROthiazide 25 mg tablet 90 tablet 3 Sig: Take 1 tablet by mouth once daily. levothyroxine (LEVOXYL) 125 mcg tablet 30 tablet 2 Sig: Take 1 tablet by mouth once daily. Take on empty stomach. For thyroid. Sherry Car February 28, 2024 12:47 PM documented in this encounter [facility] 02-17-2024 Telephone encounter Note I called and spoke with [employer]. They dispensed 21 pills because the patient is part of their med sync program and when the Rx was received the patient was between fill dates. The next fill date is 03/06/2024, and patient will receive 90 tablets of allopurinol then. Patient notified and verbalized understanding. Anna Cornejo LPN [facility] 02-17-2024 Miscellaneous Notes I called and spoke with [employer]. They dispensed 21 pills because the patient is part of their med sync program and when the Rx was received the patient was between fill dates. The next fill date is 03/06/2024, and patient will receive 90 tablets of allopurinol then. Patient notified and verbalized understanding. Anna Cornejo LPN Pt asking about her medication allopurinol, she only received 21 tablets and she normally gets 20. Please advise and call pt regarding documented in this encounter [facility] 02-17-2024 Telephone encounter Note Pt asking about her medication allopurinol, she only received 21 tablets and she normally gets 20. Please advise and call pt regarding [facility] 02-14-2024 Telephone encounter Note Patient has been identified by name and date of : Yes Last office visit in this department: Visit date not found RX INSTRUCTIONS: Patient aware RX will be sent to pharmacy. No need to notify patient. Patient phones requesting refills as follows: Requested Prescriptions Pending Prescriptions Disp Refills allopurinol (ZYLOPRIM) 100 mg tablet 90 tablet 3 Sig: Take 1 tablet by mouth once daily. Please review and advise. Renuka Dorsey [facility] Work Phone: 02-14-2024 Miscellaneous Notes Patient has been identified by name and date of : Yes Last office visit in this department: Visit date not found RX INSTRUCTIONS: Patient aware RX will be sent to pharmacy. No need to notify patient. Patient phones requesting refills as follows: Requested Prescriptions Pending Prescriptions Disp Refills allopurinol (ZYLOPRIM) 100 mg tablet 90 tablet 3 Sig: Take 1 tablet by mouth once daily. Please review and advise. Renuka Dorsey documented in this encounter [facility] 01-21-2024 Telephone encounter Note SOCIAL WORK FOLLOW UP NOTE: [facility] Date of service: January 21, 2024 Fax received from [employer] stating pt needs to apply for a 3rd alliance party funding this year for Imbruvica before they will enroll pt's for free med. KIRAN spoke with pt's daughter and discussed this new criteria. Currently, there is a $8,000 jamrai available for CLL through [employer]. SW and pt's daughter called who gave consent for SW to enroll pt in [employer]. SW completed enrollment and pt is conditionally approved from 12/22/23-12/20/24 for $8,000 to pay for Imbruvica. A copy of approval letter sent to internal scanning as well as pt's daughter via email. Once income is verified by [employer], SW will print off prescription payment card and arrange script be sent to a specialty pharmacy along with payment information. Pt's daughter in agreement with this plan. No other needs identified at this time. Once jamari funds are almost depleted, SW will call [employer] and ask they review pt's application again for free med. ABRAHAM Hernandez-S [facility] 01-21-2024 Miscellaneous Notes SOCIAL WORK FOLLOW UP NOTE: [facility] Date of service: January 21, 2024 Fax received from [employer] stating pt needs to apply for a 3rd alliance party funding this year for Imbruvica before they will enroll pt's for free med. SW spoke with pt's daughter and discussed this new criteria. Currently, there is a $8,000 jamari available for CLL through [employer]. SW and pt's daughter called who gave consent for SW to enroll pt in [employer] online. SW completed enrollment and pt is conditionally approved from 12/22/23-12/20/24 for $8,000 to pay for Imbruvica. A copy of approval letter sent to internal scanning as well as pt's daughter via email. Once income is verified by [employer], SW will print off prescription payment card and arrange script be sent to a specialty pharmacy along with payment information. Pt's daughter in agreement with this plan. No other needs identified at this time. Once jamari funds are almost depleted, SW will call [employer] and ask they review pt's application again for free med. ABRAHAM Hernandez-S documented in this encounter [facility] 01-10-2024 Telephone encounter Note SOCIAL WORK FOLLOW UP NOTE: [facility] SW received new patient assistance application for pt via email from pt's daughter. SW completed HCP form and had physician review and sign. SW successfully faxed completed application to [employer] this date. Completed application with successful fax transmission page emailed back to pt daughter for her records. No other needs identified at this time. GIULIA Hernandez [facility] 01-10-2024 Miscellaneous Notes SOCIAL WORK FOLLOW UP NOTE: [facility] SW received new patient assistance application for pt via email from pt's daughter. SW completed HCP form and had physician review and sign. SW successfully faxed completed application to [employer] this date. Completed application with successful fax transmission page emailed back to pt daughter for her records. No other needs identified at this time. GIULIA Hernandez documented in this encounter [facility] 12-31-2023 Note [facility] 12-31-2023 History of Present illness Narrative Chief Complaint Patient presents with: Established Patient HPI: Marcelo Gonzalez is a 78 year old female who presents here today for follow up CLL. Per Dr. Salas's previous note: H/o essential hypertension, hyperlipidemia, GERD, hypothyroidism, osteoarthritis of the knees, degenerative disease of the lumbar spine and possibly RA. Patient was noted to have bilateral axillary adenopathy on a screening mammogram done 06/20/2020. Multiple axillary nodes were noted in the right breast posterior depth upper region and multiple axillary nodes were observed in the left breast posterior depth upper region. Multiple enlarged lymph nodes were observed in the left axilla on US. They had thickened cortexes. There was one enlarged lymph node in the right axilla on ultrasound. And ultrasound core needle biopsy of one of the left axillary lymph nodes was performed on 07/14/2020. 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 Current therapy: Began Imbruvica 09/14/20. Pt. called in c/o fatigue on 06/29/21-imbruvica dose lowered to [address] Salas. S/p L total knee on May 21, [address] Reid. Pt. here with her daughter. Appetite:It's good. Wt. staable. Energy level:I've got energy. Denies fevers. Mouth:denies sores Resp:denies cough or sob, occ. jones long distance walking Cardiac:denies chest pain/palpitations GI:denies abd pain, n/v, moving bowels regularly :denies dysuria/hematuria, UTI last month treated by PCP Extrem:denies pain Neuro:denies symptoms of neuropathy Skin:b/l LE rash, no itch/pain I've had it on and off for years. Heme:denies bleeding The ROS is otherwise negative. Past medical history, appointments, medications, allergies reviewed. No changes. EXAM: BP 150/82 Pulse (!) 57 Temp 36.7 C (98.1 F) (Temporal) Wt 75.8 kg (167 lb 1.7 oz) SpO2 95% BMI 33.24 kg/m APPEARANCE Well appearing, alert, in no acute distress, well-hydrated, well nourished. HEART RRR with normal S1 and S2, no murmurs LUNG clear to auscultation LYMPH NODES No cervical lymphadenopathy, No supraclavicular lymphadenopathy, and No axillary lymphadenopathy. ABDOMEN bowel sounds normoactive, soft, non-tender, non-distended EXTREMITIES No edema NEURO Awake, alert and oriented x 3, Normal gait, and No involuntary motions. SKIN BLE fine flat rash, no surrounding erythema/drainage LABS: Latest Ref Rng 10/29/2023 12/02/2023 12/31/2023 WBC 3.70 - 11.00 k/uL 7.19 7.72 7.83 RBC 3.90 - 5.20 m/uL 3.94 4.12 3.73 (L) Hemoglobin 11.5 - 15.5 g/dL 12.0 12.5 11.3 (L) Hematocrit 36.0 - 46.0 % 36.5 38.1 34.9 (L) MCV 80.0 - 100.0 fL 92.6 92.5 93.6 MCH 26.0 - 34.0 pg 30.5 30.3 30.3 MCHC 30.5 - 36.0 g/dL 32.9 32.8 32.4 RDW-CV 11.5 - 15.0 % 15.1 (H) 14.6 14.6 Platelet Count 150 - 400 k/uL 302 323 322 MPV 9.0 - 12.7 fL 10.0 10.2 10.0 Neut% % 60.3 65.4 60.6 Abs Neut (ANC) 1.45 - 7.50 k/uL 4.34 5.05 4.74 Lymph% % 19.3 17.9 19.4 Abs Lymph 1.00 - 4.00 k/uL 1.39 1.38 1.52 [place]% % 15.3 12.4 14.0 Abs [place] <0.87 k/uL 1.10 (H) 0.96 (H) 1.10 (H) Eosin% % 2.1 2.1 3.4 Abs Eosin <0.46 k/uL 0.15 0.16 0.27 Baso% % 2.4 1.8 2.2 Abs Baso <0.11 k/uL 0.17 (H) 0.14 (H) 0.17 (H) Immature Gran % % 0.6 0.4 0.4 IMMATURE GRANS (ABS) <0.10 k/uL 0.04 0.03 0.03 NRBC /100 WBC 0.0 0.0 0.0 Absolute nRBC <0.01 k/uL <0.01 <0.01 <0.01 DTYPE Auto Auto Auto CMP: Pending ASSESSMENT/PLAN: 1. CLL (chronic lymphocytic leukemia) (HCC) - ICD9: 204.10, ICD10: C91.10 - No new concerning findings on exam. - Tolerating lower dose of imbruvica better-2 capsules daily. Energy improved. - Reviewed CBC with pt. - CMP pending. - Follow up with Cardiology/Ortho/PCP as scheduled. - Continue current dose of imbruvica. - Follow up with Chapo Baig CNP as scheduled. - Advised pt. to call for DERM appt. Dr. Ann. - CBC/CMP monthly. - Follow up in 3 months with CBC/CMP. - Pt. aware to call office with any questions/concerns. The patient indicates understanding of these issues and agrees with the plan. All documentation from previous visit of 09/27/23-Dr. Salas/myself was copied and pasted, documentation has been reviewed and edited as necessary for today's visit. Cristina Taylor APRN.[employer] documented in this encounter [facility] 12-04-2023 Telephone encounter Note See pt message. See EC provider response. Marcio Padron LPN [facility] 12-04-2023 Miscellaneous Notes See pt message. See EC provider response. Marcio Padron LPN documented in this encounter [facility] 12-02-2023 History of Present illness Narrative This note was created using Jibbigoriter. Subjective Marcelo Gonzalez is a 78 year old female. 78 year old female with PMH HTN, hyperlipidemia, GERD, REX, thyroid, CLL, anxiety and depression presents for possible UTI. Acute onset 4 days ago +burning +urgency +frequency Denies abdominal pain Denies fever or chills Denies N/V/D Denies concerns for STI Denies vaginal discharge Denies vaginal bleeding. 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 No foreign language interpreter was used. UTI This is a new problem. The current episode started more than 2 days ago. The problem occurs every urination. The problem has been gradually worsening. The quality of the pain is described as burning. The pain is at a severity of 5/10. The pain is mild. She is Not sexually active. There is No history of pyelonephritis. Associated symptoms include frequency and urgency. Pertinent negatives include no chills, no sweats, no nausea, no vomiting, no discharge, no hematuria, no hesitancy, no possible and no flank pain. She has tried nothing for the symptoms. Her past medical history does not include kidney stones, single kidney, urological procedure, recurrent UTIs, urinary stasis or catheterization. PAST MEDICAL HISTORY Diagnosis Date Allergic rhinitis due to animal hair and dander + testing dander, dust, outside. Cristofer Alcant[facility] E[facility]. Arthritis of both knees 03/04/2012 CKD (chronic kidney disease), stage III (HCC) Degeneration of intervertebral disc, site unspecified Degenerative arthritis of hip 03/04/2012 Diverticulosis of colon (without mention of hemorrhage) Endometriosis Family history of malignant neoplasm of gastrointestinal tract Hyperlipidemia Hypertension Internal hemorrhoids without mention of complication Other specified gastritis Unspecified hypothyroidism PAST SURGICAL HISTORY Procedure Laterality Date ARTHRP ACETBLR/PROX FEM PROSTC AGRFT/ALGRFT 2012 Left Hip ARTHRP ACETBLR/PROX FEM PROSTC AGRFT/ALGRFT Right 01/21/2017 Dr. Reid COLONOSCOPY FLX DX W/COLLJ SPEC WHEN PFRMD 12/16/08 DILATION & CURETTAGE DX&/THER NONOBSTETRIC 1969' multiple LAMINECTOMY W/O FFD > 2 VERT SEG LUMBAR 2009 titanium chris PAST SURGICAL HISTORY OF 2001 FOOT SURGERY PAST SURGICAL HISTORY OF Jan 2004 Dr. Mclean - Back Surgery-upper back - metal rods and cadaver bone TOTAL ABDOMINAL HYSTERECT W/WO RMVL TUBE OVARY 1986 Hysterectomy, ANDREW/BSO ALLERGIES Lyrica [Pregabalin], Penicillins, Amoxicillin, Codeine, Doxycycline Hcl, Fentanyl, Keflex [Cephalexin], Latex, Lisinopril, Meloxicam, Mirapex [Pramipexole], Oxycodone, Sulfa (Sulfonamide Antibiotics), Trazodone (Bulk), Ultram [Tramadol Hcl], Versed [Midazolam Hcl], and Zetia [Ezetimibe] MEDICATIONS levothyroxine (LEVOXYL) 125 mcg tablet Take 1 tablet by mouth once daily. Take on empty stomach. For thyroid. Oxyquinoline-Na Lauryl Sulfate (TRIMO-SCHUSTER JELLY) 0.025-0.01 % gel Use 1 Inch vaginally two times a week. pantoprazole DR (PROTONIX) 40 mg tablet Take 1 tablet by mouth two times a day. Lactobacillus acidophilus (PROBIOTIC ORAL) Take 1 tablet by mouth once daily. fish,bora,flax oils-om3,6,9no1 1,200 mg cap Take 1 capsule by mouth once daily. escitalopram oxalate (LEXAPRO) 10 mg tablet Take 1 tablet by mouth once daily. losartan (COZAAR) 100 mg tablet Take 1 tablet by mouth once daily. hydroCHLOROthiazide 25 mg tablet Take 1 tablet by mouth once daily. allopurinol (ZYLOPRIM) 100 mg tablet Take 1 tablet by mouth once daily. ibrutinib (IMBRUVICA) 140 mg capsule Take 2 capsules (280mg) by mouth once daily with a glass of water OTC PRODUCT Take 1 capsule by mouth once daily. Plexus nerve nitrofurantoin monohydrate and macrocrystal (MACROBID) 100 mg capsule Take 1 capsule by mouth two times a day for 5 days. FAMILY HISTORY Problem Relation Age of Onset Hypertension Mother Stroke Mother other (DIVERTICULITIS) Mother Heart Father Hypertension Father Colon Cancer Sister age 48-50 Diabetes Maternal Grandmother Thyroid Sister X-2 Thyroid Child 2 Daughters Asthma No Family History Allergies No Family History Social History Tobacco Use Smoking status: Former Types: Cigarettes Smokeless tobacco: Never Tobacco comments: None since age 20s. No smoking in childhood home. Spouse of 56 years stopped smoking 1974. Vaping Use Vaping status: Never Used Substance Use Topics Alcohol use: No Drug use: No Review of Systems Constitutional: Negative for chills, fatigue and fever. Eyes: Negative for pain, discharge, redness and itching. Respiratory: Negative for apnea, cough, choking and chest tightness. Cardiovascular: Negative for chest pain, palpitations and leg swelling. Gastrointestinal: Negative for abdominal pain, nausea and vomiting. Genitourinary: Positive for dysuria, frequency and urgency. Negative for flank pain, hematuria and hesitancy. Musculoskeletal: Negative for back pain, gait problem and neck pain. Skin: Negative for color change, rash and wound. Allergic/Immunologic: Negative for environmental allergies, food allergies and immunocompromised state. Neurological: Negative for dizziness, facial asymmetry and headaches. Hematological: Negative for adenopathy. Does not bruise/bleed easily. Psychiatric/Behavioral: Negative for agitation and behavioral problems. Objective BP 116/68 Pulse 60 Temp 36.4 C (97.6 F) Resp 18 Wt 76.6 kg (168 lb 14 oz) SpO2 97% BMI 33.59 kg/m Physical Exam Vitals and nursing note reviewed. Constitutional: General: She is not in acute distress. Appearance: Normal appearance. She is normal weight. She is not ill-appearing, toxic-appearing or diaphoretic. HENT: Head: Normocephalic and atraumatic. Right Ear: Ear canal and external ear normal. Left Ear: Ear canal and external ear normal. Nose: Nose normal. No congestion or rhinorrhea. Mouth/Throat: Mouth: Mucous membranes are moist. Pharynx: No oropharyngeal exudate or posterior oropharyngeal erythema. Eyes: General: Right eye: No discharge. Left eye: No discharge. Extraocular Movements: Extraocular movements intact. Conjunctiva/sclera: Conjunctivae normal. Pupils: Pupils are equal, round, and reactive to light. Cardiovascular: Rate and Rhythm: Normal rate and regular rhythm. Pulses: Normal pulses. Heart sounds: Normal heart sounds. No murmur heard. No friction rub. Pulmonary: Effort: Pulmonary effort is normal. No respiratory distress. Breath sounds: Normal breath sounds. No stridor. No wheezing, rhonchi or rales. Chest: Chest wall: No tenderness. Abdominal: General: Abdomen is flat. There is no distension. Palpations: Abdomen is soft. There is no mass. Tenderness: There is no abdominal tenderness. There is no right CVA tenderness, left CVA tenderness, guarding or rebound. Hernia: No hernia is present. Musculoskeletal: General: No swelling, tenderness, deformity or signs of injury. Normal range of motion. Cervical back: Normal range of motion and neck supple. No rigidity. Right lower leg: No edema. Left lower leg: No edema. Lymphadenopathy: Cervical: No cervical adenopathy. Skin: General: Skin is warm and dry. Capillary Refill: Capillary refill takes less than 2 seconds. Coloration: Skin is not jaundiced or pale. Findings: No bruising, erythema, lesion or rash. Neurological: General: No focal deficit present. Mental Status: She is alert and oriented to person, place, and time. Cranial Nerves: No cranial nerve deficit. Sensory: No sensory deficit. Motor: No weakness. Coordination: Coordination normal. Gait: Gait normal. Psychiatric: Mood and Affect: Mood normal. Behavior: Behavior normal. Thought Content: Thought content normal. Judgment: Judgment normal. Assessment and Plan ASSESSMENT/PLAN: 1. Burning with urination - ICD9: 788.1, ICD10: R30.0 X 4 days No red flags acute - UA positive for beto esterase and hematuria - Send urine for culture - Begin treatment with Macrobid 100 mg BID for 5 days (chosen based off of prior urine cultures) - Patient education for prevention given - UA DIP, URINE (POC) - URINE CULTURE Madai Varghese APRN.CNP documented in this encounter [facility] 11-18-2023 Instructions Jane Baig APRN.CNP - 11/18/2023 10:20 AM EDT Continue the same medication. Have a safe trip. documented in this encounter [facility] 11-18-2023 History of Present illness Narrative This is a 78 year old female who presents today with: Patient presents with: Recheck: 1 month follow up HISTORY OF PRESENT ILLNESS: Marcelo Gonzalez is a 78 year old female. Patient presents with: Recheck: 1 month follow up Pt presents today for recheck. No problems/concerns. We tried to increase the lexapro to 15 mg. Refers she went back to 10 mg -- states she just can't tolerate above the 10 mg. Refers it makes her goofy when she increases the dosage. Usually sleeps okay. Refers that she gets up a couple of times to urinate. Appetite is okay. Hobbies -- reads. Watches game shows. HTN: Patient is compliant with meds Yes Monitors bp at home: Yes. Denies side effects: Yes. Chest pain: No. Dyspnea: No. Edema: No. Palpitations: No. Syncope: No. Headache: No. Dizziness: No. HYPOTHYROID: Patient is compliant with medications: Yes Patient has changes in energy: gets tired -- keeps busy. Patient has changes in hair or skin: Yes - skin is dry. Patient has temperature intolerance: varies. I freeze in the cold. Patient has weight changes: No PAST MEDICAL HISTORY: PAST MEDICAL HISTORY Diagnosis Date Allergic rhinitis due to animal hair and dander + testing dander, dust, outside. Cristofer Alcantara ENT. Arthritis of both knees 03/04/2012 CKD (chronic kidney disease), stage III (HCC) Degeneration of intervertebral disc, site unspecified Degenerative arthritis of hip 03/04/2012 Diverticulosis of colon (without mention of hemorrhage) Endometriosis Family history of malignant neoplasm of gastrointestinal tract Hyperlipidemia Hypertension Internal hemorrhoids without mention of complication Other specified gastritis Unspecified hypothyroidism PAST SURGICAL HISTORY Procedure Laterality Date ARTHRP ACETBLR/PROX FEM PROSTC AGRFT/ALGRFT 2012 Left Hip ARTHRP ACETBLR/PROX FEM PROSTC AGRFT/ALGRFT Right 01/21/2017 Dr. Reid COLONOSCOPY FLX DX W/COLLJ SPEC WHEN PFRMD 12/16/08 DILATION & CURETTAGE DX&/THER NONOBSTETRIC 1970' multiple LAMINECTOMY W/O FFD > 2 VERT SEG LUMBAR 2009 titanium chris PAST SURGICAL HISTORY OF 2001 FOOT SURGERY PAST SURGICAL HISTORY OF Jan 2004 Dr. Mclean - Back Surgery-upper back - metal rods and cadaver bone TOTAL ABDOMINAL HYSTERECT W/WO RMVL TUBE OVARY 1986 Hysterectomy, ANDREW/BSO ALLERGIES Lyrica [Pregabalin], Penicillins, Amoxicillin, Codeine, Doxycycline Hcl, Fentanyl, Keflex [Cephalexin], Latex, Lisinopril, Meloxicam, Mirapex [Pramipexole], Oxycodone, Sulfa (Sulfonamide Antibiotics), Trazodone (Bulk), Ultram [Tramadol Hcl], Versed [Midazolam Hcl], and Zetia [Ezetimibe] MEDICATIONS Current Outpatient Medications Medication Sig pantoprazole DR (PROTONIX) 40 mg tablet Take 1 tablet by mouth two times a day. escitalopram oxalate (LEXAPRO) 5 mg tablet Take 1 tablet by mouth once daily. Take in addition to 10mg tablet for a total of 15mg daily. Lactobacillus acidophilus (PROBIOTIC ORAL) Take 1 tablet by mouth once daily. fish,bora,flax oils-om3,6,9no1 1,200 mg cap Take 1 capsule by mouth once daily. escitalopram oxalate (LEXAPRO) 10 mg tablet Take 1 tablet by mouth once daily. levothyroxine (LEVOXYL) 125 mcg tablet Take 1 tablet by mouth once daily. Take on empty stomach. For thyroid. Oxyquinoline-Na Lauryl Sulfate (TRIMO-SCHUSTER JELLY) 0.025-0.01 % gel Use 1 Inch vaginally two times a week. losartan (COZAAR) 100 mg tablet Take 1 tablet by mouth once daily. hydroCHLOROthiazide 25 mg tablet Take 1 tablet by mouth once daily. allopurinol (ZYLOPRIM) 100 mg tablet Take 1 tablet by mouth once daily. ibrutinib (IMBRUVICA) 140 mg capsule Take 2 capsules (280mg) by mouth once daily with a glass of water OTC PRODUCT Take 1 capsule by mouth once daily. Plexus nerve No current facility-administered medications for this visit. FAMILY HISTORY Problem Relation Age of Onset Hypertension Mother Stroke Mother other (DIVERTICULITIS) Mother Heart Father Hypertension Father Colon Cancer Sister age 48-50 Diabetes Maternal Grandmother Thyroid Sister X-2 Thyroid Child 2 Daughters Asthma No Family History Allergies No Family History Social History Tobacco Use Smoking status: Former Types: Cigarettes Smokeless tobacco: Never Tobacco comments: None since age 20s. No smoking in childhood home. Spouse of 56 years stopped smoking 1974. Vaping Use Vaping status: Never Used Substance Use Topics Alcohol use: No Drug use: No EXAM: BP 138/76 Pulse (!) 54 Resp 16 SpO2 96% PHYSICAL EXAM: General Appearance: Well appearing, alert, in no acute distress, well-hydrated, well nourished.. Skin: Skin color, texture, turgor normal, no suspicious rashes or lesions. Head: Normocephalic, no masses, lesions, tenderness or abnormalities. Eyes: Anicteric sclera. Extraocular movements are intact. . Lungs: Lungs clear to auscultation. No wheezing, rhonchi, rales.. Heart: RRR without murmur, gallop, or rubs. No ectopy. Extremities: No deformities, edema, skin discoloration, clubbing or cyanosis. Good capillary refill. . Neurologic: Gait normal. R ASSESSMENT/PLAN: 1. Mixed anxiety depressive disorder - ICD9: 300.4, ICD10: F41.8 (primary diagnosis) Continue the lexapro 10 mg daily. She reports that she is stable on this dose at this time. Did discuss that if she thought the additional 5 mg was too much, she could also try breaking in half and taking 12.5 mg daily. 2. Hypothyroidism due to acquired atrophy of thyroid - ICD9: 244.8, 246.8, ICD10: E03.4 Refill: - LEVOTHYROXINE 125 MCG TABLET 3. Encounter for immunization - ICD9: V03.89, ICD10: Z23 - INFLUENZA VACCINE, PRSV FREE, AGE 65+ YR, HIGH DOSE, TRIVALENT (FLUZONE HIGH-DOSE) 4. Essential hypertension, benign - ICD9: 401.1, ICD10: I10 - Controlled - Continue current medications - Recommend home blood pressure monitoring, to bring results to next visit - Encouraged sodium restriction, DASH or Mediterranean diet - Recommend regular aerobic exercise Discussed treatment plan and patient voices understanding. Patient's questions answered appropriately. Medications and potential side effects were discussed and patient voices understanding. Return to the office as scheduled or as needed for worsening/no improvement. Jane Baig APRN.EDITA documented in this encounter [facility] 10-25-2023 Telephone encounter Note Prescription Refill Information The patient has been identified by name and date of : Yes Caregiver verified no other encounters exist for this prescription request: Yes Caregiver confirmed with patient/requestor that no other refills are due, in the near future, with this provider at this time: Yes Please send today as patient is completely out The last office visit in the department: 10/07/2023 Does the patient have a future office visit with this provider/department: Yes 11/17/24 Requested Prescriptions Pending Prescriptions Disp Refills pantoprazole DR (PROTONIX) 40 mg tablet 180 tablet 3 Sig: Take 1 tablet by mouth two times a day. Daja Abdalla October 25, 2023 9:42 AM [facility] 10-25-2023 Miscellaneous Notes Prescription Refill Information The patient has been identified by name and date of : Yes Caregiver verified no other encounters exist for this prescription request: Yes Caregiver confirmed with patient/requestor that no other refills are due, in the near future, with this provider at this time: Yes Please send today as patient is completely out The last office visit in the department: 10/07/2023 Does the patient have a future office visit with this provider/department: Yes 11/17/24 Requested Prescriptions Pending Prescriptions Disp Refills pantoprazole DR (PROTONIX) 40 mg tablet 180 tablet 3 Sig: Take 1 tablet by mouth two times a day. Daja Carmichael [facility] [place] October 25, 2023 9:42 AM documented in this encounter [facility] 10-18-2023 Telephone encounter Note Pt notified. Appt scheduled. Marcio Padron LPN [facility] 10-18-2023 Miscellaneous Notes Pt notified. Appt scheduled. Marcio Padron LPN Script sent. She should have a follow-up in a month. Jane Baig APRN.EDITA Pt notified. She would like 5mg sent to pharmacy to take in addition to 10mg tablet. Marcio Padron LPN It looks like she is currently taking 10 mg daily. We can increase this to 15 mg daily. It does not come in a 15 mg dose, to she would either need to take 1 1/2 of the 10 mg or we can send in a 5 mg tablet to take with the 10 mg tablet. Which would she prefer? Patient calling to request increase in dose of Lexapro. She states she has no symptoms that she has noticed but her daughter tells her she has been more irritable. She says she does not want to take 20 mg. [facility]. Jaquelin Vitale RN documented in this encounter [facility] 10-18-2023 Telephone encounter Note Script sent. She should have a follow-up in a month. Jane Baig APRN.EDITA [facility] 10-18-2023 Telephone encounter Note Pt notified. She would like 5mg sent to pharmacy to take in addition to 10mg tablet. Marcio Padron LPN [facility] 10-17-2023 Telephone encounter Note It looks like she is currently taking 10 mg daily. We can increase this to 15 mg daily. It does not come in a 15 mg dose, to she would either need to take 1 1/2 of the 10 mg or we can send in a 5 mg tablet to take with the 10 mg tablet. Which would she prefer? [facility] 10-17-2023 Telephone encounter Note Patient calling to request increase in dose of Lexapro. She states she has no symptoms that she has noticed but her daughter tells her she has been more irritable. She says she does not want to take 20 mg. [facility]. Jaquelin Vitale RN [facility] 10-09-2023 Telephone encounter Note Noted. Jane Baig APRN.EDITA [facility] 10-09-2023 Miscellaneous Notes Noted. Jane Baig APRN.EDITA Pt called and is notified of providers results and instructions. Pt voices understanding. She states she can't take Prednisone, it does something to her whole body. She states she is taking Arthritic Tylenol and her hand is back to normal. Joana Dhaliwal RN Can please let patient know that I received her blood results. Her uric acid level is normal. One of the inflammatory markers was just a little bit elevated. How is her finger feeling with the prednisone? I also touched base with Cristina re: the rash. She said that her labs have been stable and if the rash isn't bothersome, she should continue the imbruvica. If the symptoms get worse, to please let Cristina know. Jane Baig APRN.EDITA documented in this encounter [facility] 10-09-2023 Telephone encounter Note Pt called and is notified of providers results and instructions. Pt voices understanding. She states she can't take Prednisone, it does something to her whole body. She states she is taking Arthritic Tylenol and her hand is back to normal. Joana Dhaliwal RN [facility] 10-09-2023 Telephone encounter Note Can please let patient know that I received her blood results. Her uric acid level is normal. One of the inflammatory markers was just a little bit elevated. How is her finger feeling with the prednisone? I also touched base with Cristina re: the rash. She said that her labs have been stable and if the rash isn't bothersome, she should continue the imbruvica. If the symptoms get worse, to please let Cristina know. Jane Baig APRN.EDITA [facility] 10-07-2023 History of Present illness Narrative Radiology Service Progress Note PATIENT NAME: Marcelo Gonzalez DATE OF SERVICE: October 07, 2023 TIME: 11:24 AM PATIENT IDENTITY VERIFICATION COMPLETED USING TWO (2) IDENTIFIERS: Name and Date of confirmed by patient verbally. FALL SCREENING: Has the patient had 2 falls in the last year or 1 fall with injury or currently using an Ambulatory Assistive Device (Walker, Cane, Wheelchair, Crutches, etc.)? No PATIENT GENDER DATA: Female. status: : No status: NO. PATIENT RELEVANT IMPLANT DATA REVIEWED: Not Applicable PATIENT PRESENTS WITH AN IMPLANTABLE OR ATTACHED GROCERY CLERK CHECKING: No RADIOLOGY DEPARTMENT: General X-ray: Exam(s) Completed: Upper Extremity X-Ray(s): Fingers/Thumb, left PERIPHERAL IV DATA: Not applicable SIGNED BY: RT Yann(Anthony) October 07, 2023 11:24 AM documented in this encounter [facility] 10-07-2023 Instructions Jane Baig APRN.CNP - 10/07/2023 10:35 AM EDT Get the xray. Get the labwork. Start the prednisone -- two pills daily X 5 days. Let me know if no better/worsening. documented in this encounter [facility] 10-07-2023 History of Present illness Narrative This is a 78 year old female who presents today with: Patient presents with: Recheck: 1 month follow up; L pinkie finger red/swollen x1 day HISTORY OF PRESENT ILLNESS: Marcelo Gonzalez is a 78 year old female. Patient presents with: Recheck: 1 month follow up; L pinkie finger red/swollen x1 day Left 5th finger pain. Refers red and painful. No known injury. Hadn't taken anything for it. Started yesterday. Refers that she has sores on her legs. Has been there for months. Refers that it has been there since she started the imbruvica. Hurts when her clothing rub on the area. Notices on BLE. She has tried lotions and cortisone cream. No other s/s of bleeding. PAST MEDICAL HISTORY: PAST MEDICAL HISTORY No date: Allergic rhinitis due to animal hair and dander Comment: + testing dander, dust, outside. [facility]. 03/04/2012: Arthritis of both knees No date: CKD (chronic kidney disease), stage III (HCC) No date: Degeneration of intervertebral disc, site unspecified 03/04/2012: Degenerative arthritis of hip No date: Diverticulosis of colon (without mention of hemorrhage) No date: Endometriosis No date: Family history of malignant neoplasm of gastrointestinal tract No date: Hyperlipidemia No date: Hypertension No date: Internal hemorrhoids without mention of complication No date: Other specified gastritis No date: Unspecified hypothyroidism PAST SURGICAL HISTORY 2012: ARTHRP ACETBLR/PROX FEM PROSTC AGRFT/ALGRFT Comment: Left Hip 01/21/2017: ARTHRP ACETBLR/PROX FEM PROSTC AGRFT/ALGRFT; Right Comment: Dr. Reid 12/16/08: COLONOSCOPY FLX DX W/COLLJ SPEC WHEN PFRMD 1970's: DILATION & CURETTAGE DX&/THER NONOBSTETRIC Comment: multiple 2009: LAMINECTOMY W/O FFD > 2 VERT SEG LUMBAR Comment: titanium chris 2001 : PAST SURGICAL HISTORY OF Comment: FOOT SURGERY Jan 2004: PAST SURGICAL HISTORY OF Comment: Dr. Mclean - Back Surgery-upper back - metal rods and cadaver bone 1987: TOTAL ABDOMINAL HYSTERECT W/WO RMVL TUBE OVARY Comment: Hysterectomy, ANDREW/BSO ALLERGIES Lyrica [Pregabalin], Penicillins, Amoxicillin, Codeine, Doxycycline Hcl, Fentanyl, Keflex [Cephalexin], Latex, Lisinopril, Meloxicam, Mirapex [Pramipexole], Oxycodone, Sulfa (Sulfonamide Antibiotics), Trazodone (Bulk), Ultram [Tramadol Hcl], Versed [Midazolam Hcl], and Zetia [Ezetimibe] MEDICATIONS Current Outpatient Medications Medication Sig Lactobacillus acidophilus (PROBIOTIC ORAL) Take 1 tablet by mouth once daily. fish,bora,flax oils-om3,6,9no1 1,200 mg cap Take 1 capsule by mouth once daily. escitalopram oxalate (LEXAPRO) 10 mg tablet Take 1 tablet by mouth once daily. levothyroxine (LEVOXYL) 125 mcg tablet Take 1 tablet by mouth once daily. Take on empty stomach. For thyroid. Oxyquinoline-Na Lauryl Sulfate (TRIMO-SCHUSTER JELLY) 0.025-0.01 % gel Use 1 Inch vaginally two times a week. losartan (COZAAR) 100 mg tablet Take 1 tablet by mouth once daily. hydroCHLOROthiazide 25 mg tablet Take 1 tablet by mouth once daily. allopurinol (ZYLOPRIM) 100 mg tablet Take 1 tablet by mouth once daily. ibrutinib (IMBRUVICA) 140 mg capsule Take 2 capsules (280mg) by mouth once daily with a glass of water pantoprazole DR (PROTONIX) 40 mg tablet Take 1 tablet by mouth twice daily. OTC PRODUCT Take 1 capsule by mouth once daily. Plexus nerve No current facility-administered medications for this visit. FAMILY HISTORY Problem Relation Age of Onset Hypertension Mother Stroke Mother other (DIVERTICULITIS) Mother Heart Father Hypertension Father Colon Cancer Sister age 48-50 Diabetes Maternal Grandmother Thyroid Sister X-2 Thyroid Child 2 Daughters Asthma No Family History Allergies No Family History Social History Tobacco Use Smoking status: Former Types: Cigarettes Smokeless tobacco: Never Tobacco comments: None since age 20s. No smoking in childhood home. Spouse of 56 years stopped smoking 1974. Vaping Use Vaping Use: Never used Substance Use Topics Alcohol use: No Drug use: No EXAM: BP 142/78 Pulse 63 Resp 16 SpO2 95% PHYSICAL EXAM: General Appearance: Well appearing, alert, in no acute distress, well-hydrated, well nourished.. Skin: Skin color, texture, turgor normal, BLE with petechial rash. Head: Normocephalic, no masses, lesions, tenderness or abnormalities. Eyes: Anicteric sclera. Extraocular movements are intact. . Lungs: Lungs clear to auscultation. No wheezing, rhonchi, rales.. Heart: RRR without murmur, gallop, or rubs. No ectopy. Neurologic: Gait normal w/ cane. Ext:: left 5th MCP joint with redness and swelling, + tenderness. ROM intact, but with some discomfort. ASSESSMENT/PLAN: 1. Finger pain, left - ICD9: 729.5, ICD10: M79.645 (primary diagnosis) ? Arthritic flare. Start prednisone burst. Get labs/xray. - URIC ACID - SEDIMENTATION RATE, WESTERGREN - C-REACTIVE PROTEIN - XR DIGIT GENERAL 3V FRONTAL/LAT/OBL LEFT - PREDNISONE 20 MG TABLET 2. Rash - ICD9: 782.1, ICD10: R21 Petechial rash of the LE. Had recent stable CBC with heme/onc. Will cc heme-onc re: if medication related. Discussed treatment plan and patient voices understanding. Patient's questions answered appropriately. Medications and potential side effects were discussed and patient voices understanding. Return to the office as scheduled or as needed for worsening/no improvement. Jane Baig APRN.[employer] documented in this encounter [facility] 10-02-2023 Telephone encounter Note Called and spoke with pt. Notified of need to repeat thyroid labwork around 11/07/23. Pt verbalizes understanding. In talking with pt, she wants to let Jane know when she sees her next week that she wants Jane to look at some sores she has on her legs. States she has had them for awhile and they won't go away. States they burn and hurt when her clothes rub on them. Denies any redness, drng or signs of infection with them. Pt had and appt next Sat the . Attempted to bring pt in on Saturday the . Pt declines so appt changed to Saturday the . Offered to have pt see another provider this week as while but declined. [facility] 10-02-2023 Miscellaneous Notes Called and spoke with pt. Notified of need to repeat thyroid labwork around 11/07/23. Pt verbalizes understanding. In talking with pt, she wants to let Jane know when she sees her next week that she wants Jane to look at some sores she has on her legs. States she has had them for awhile and they won't go away. States they burn and hurt when her clothes rub on them. Denies any redness, drng or signs of infection with them. Pt had and appt next Sat the . Attempted to bring pt in on Saturday the . Pt declines so appt changed to Saturday the . Offered to have pt see another provider this week as while but declined. Can please let patient know that I received her thyroid level. It is improving, but unfortunately, was drawn too soon after her last dose adjustment. Please repeat this again in another month. documented in this encounter [facility] 10-02-2023 Telephone encounter Note Can please let patient know that I received her thyroid level. It is improving, but unfortunately, was drawn too soon after her last dose adjustment. Please repeat this again in another month. [facility] 09-27-2023 History of Present illness Narrative Chief Complaint Patient presents with: Established Patient HPI: Marcelo Gonzalez is a 78 year old female who presents here today for follow up CLL. Per Dr. Salas's previous note: H/o essential hypertension, hyperlipidemia, GERD, hypothyroidism, osteoarthritis of the knees, degenerative disease of the lumbar spine and possibly RA. Patient was noted to have bilateral axillary adenopathy on a screening mammogram done 06/20/2020. Multiple axillary nodes were noted in the right breast posterior depth upper region and multiple axillary nodes were observed in the left breast posterior depth upper region. Multiple enlarged lymph nodes were observed in the left axilla on US. They had thickened cortexes. There was one enlarged lymph node in the right axilla on ultrasound. And ultrasound core needle biopsy of one of the left axillary lymph nodes was performed on 07/14/2020. 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 Current therapy: Began Imbruvica 09/14/20. Pt. called in c/o fatigue on 06/29/21-imbruvica dose lowered to [address] Salas. S/p L total knee on May 21, [address] Reid. Pt. here with her daughter and spouse. Appetite:Normal. Wt. up. Energy level:I've got energy. Denies fevers. Mouth:denies sores Resp:denies cough or sob Cardiac:denies chest pain/palpitations GI:denies abd pain, n/v, moving bowels regularly :denies dysuria/hematuria Extrem:denies pain Neuro:denies symptoms of neuropathy Skin:denies rashes Heme:denies bleeding The ROS is otherwise negative. Past medical history, appointments, medications, allergies reviewed. No changes. EXAM: BP 141/66 Pulse (!) 57 Temp 36.7 C (98.1 F) (Temporal) Wt 76.6 kg (168 lb 14 oz) SpO2 97% BMI 33.59 kg/m APPEARANCE Well appearing, alert, in no acute distress, well-hydrated, well nourished. HEART RRR with normal S1 and S2, no murmurs LUNG clear to auscultation LYMPH NODES No cervical lymphadenopathy, No supraclavicular lymphadenopathy, and No axillary lymphadenopathy. ABDOMEN bowel sounds normoactive, soft, non-tender EXTREMITIES No edema NEURO Awake, alert and oriented x 3, using a cane, and No involuntary motions. SKIN Skin color, texture, turgor normal, no suspicious rashes or lesions LABS: Latest Ref Rng 07/17/2023 08/20/2023 09/27/2023 WBC 3.70 - 11.00 k/uL 11.52 (H) 7.70 8.03 RBC 3.90 - 5.20 m/uL 4.17 3.91 3.88 (L) Hemoglobin 11.5 - 15.5 g/dL 12.5 11.8 11.5 Hematocrit 36.0 - 46.0 % 38.3 35.7 (L) 35.4 (L) MCV 80.0 - 100.0 fL 91.8 91.3 91.2 MCH 26.0 - 34.0 pg 30.0 30.2 29.6 MCHC 30.5 - 36.0 g/dL 32.6 33.1 32.5 RDW-CV 11.5 - 15.0 % 13.8 14.8 15.1 (H) Platelet Count 150 - 400 k/uL 362 338 354 MPV 9.0 - 12.7 fL 10.2 10.3 10.4 Neut% % 68.2 59.3 59.4 Abs Neut (ANC) 1.45 - 7.50 k/uL 7.86 (H) 4.56 4.76 Lymph% % 16.2 19.5 22.5 Abs Lymph 1.00 - 4.00 k/uL 1.87 1.50 1.81 [place]% % 8.5 17.1 13.9 Abs [place] <0.87 k/uL 0.98 (H) 1.32 (H) 1.12 (H) Eosin% % 1.6 1.8 1.5 Abs Eosin <0.46 k/uL 0.18 0.14 0.12 Baso% % 1.9 1.8 2.2 Abs Baso <0.11 k/uL 0.22 (H) 0.14 (H) 0.18 (H) Immature Gran % % 3.6 0.5 0.5 IMMATURE GRANS (ABS) <0.10 k/uL 0.41 (H) 0.04 0.04 NRBC /100 WBC 0.0 0.0 0.0 Absolute nRBC <0.01 k/uL <0.01 <0.01 <0.01 DTYPE Auto Auto Auto CMP: Pending ASSESSMENT/PLAN: 1. CLL (chronic lymphocytic leukemia) (HCC) - ICD9: 204.10, ICD10: C91.10 - No new concerning findings on exam. - Tolerating lower dose of imbruvica better-2 capsules daily. Energy improved. - Reviewed CBC with pt. - CMP pending. - Follow up with Cardiology/Ortho/PCP as scheduled. - Continue current dose of imbruvica. - Follow up with Chapo Baig CNP as scheduled. - CBC/CMP monthly. - Follow up in 3 months with CBC/CMP. - Pt. aware to call office with any questions/concerns. The patient indicates understanding of these issues and agrees with the plan. All documentation from previous visit of 07/17/23-Dr. Salas/myself was copied and pasted, documentation has been reviewed and edited as necessary for today's visit. Cristina Taylor APRN.[employer] documented in this encounter [facility] 09-23-2023 Telephone encounter Note Patient calls back and states that she take 10 mg Lexapro. Dorota Acosta RN [facility] 09-23-2023 Miscellaneous Notes Patient calls back and states that she take 10 mg Lexapro. Dorota Acosta RN Note on Lexapro 10mg states pt is taking 5mg daily. Is pt taking Lexapro 10mg or is she splitting in half and taking 5mg? Phoned pt to clarify. LM to return call to office. Marcio Padron LPN Patient requesting medication that is escitalopram oxalate (LEXAPRO) 10 mg tablet (). [facility]ACY: [facility] Last office visit: 07-15-23 Future office visit scheduled: yes documented in this encounter [facility] 09-23-2023 Telephone encounter Note Note on Lexapro 10mg states pt is taking 5mg daily. Is pt taking Lexapro 10mg or is she splitting in half and taking 5mg? Phoned pt to clarify. LM to return call to office. Marcio Padron LPN [facility] 09-23-2023 Telephone encounter Note Patient requesting medication that is escitalopram oxalate (LEXAPRO) 10 mg tablet (). [facility]Y: [facility] Last office visit: 07-15-23 Future office visit scheduled: yes [facility] 09-10-2023 Telephone encounter Note Pt notified. She verbalized understanding. Marcio Padron LPN [facility] 09-10-2023 Miscellaneous Notes Pt notified. She verbalized understanding. Marcio Padron LPN I don't think the antibiotic would make her tired. However, we did just adjust her thyroid medication because it didn't look like she was getting enough medication -- this could cause fatigue. The urine culture actually returned negative for an infection. However, if the antibiotic is helping her urinary symptoms, then please finish the antibiotic. Jane Baig APRN.[employer]ER Pt calling to see if medication she was put on for a bladder infection possible making her sleepy and tired. Medication Macrobid. Pt denies SOB, difficulty breathing and she started this on Saturday09-07-23. Please advise pt. Cristine Luu LPN documented in this encounter [facility] 09-10-2023 Telephone encounter Note I don't think the antibiotic would make her tired. However, we did just adjust her thyroid medication because it didn't look like she was getting enough medication -- this could cause fatigue. The urine culture actually returned negative for an infection. However, if the antibiotic is helping her urinary symptoms, then please finish the antibiotic. Jane Baig APRN.EDITA [facility] 09-10-2023 Telephone encounter Note Pt calling to see if medication she was put on for a bladder infection possible making her sleepy and tired. Medication Macrobid. Pt denies SOB, difficulty breathing and she started this on Saturday09-07-23. Please advise pt. Cristine Luu LPN [facility] 09-06-2023 Telephone encounter Note Left detailed message on secure identified voicemail. Pt to return call to office /c any questions or concerns. Marcio Padron LPN [facility] 09-06-2023 Miscellaneous Notes Left detailed message on secure identified voicemail. Pt to return call to office /c any questions or concerns. Marcio Padron LPN Can please let patient know that I received part of her urine results, which does look like she has an infection. While we are waiting on the finalized results, lets go ahead and start her on an antibiotic -- I sent this to the pharmacy. I also received her thyroid level back. It shows that she isn't getting enough medication. I sent a new dose of medication to the pharmacy. Please recheck the labwork after being on this dose for 6-8 weeks. Jane Baig APRN.EDITA documented in this encounter [facility] 09-06-2023 Telephone encounter Note Can please let patient know that I received part of her urine results, which does look like she has an infection. While we are waiting on the finalized results, lets go ahead and start her on an antibiotic -- I sent this to the pharmacy. I also received her thyroid level back. It shows that she isn't getting enough medication. I sent a new dose of medication to the pharmacy. Please recheck the labwork after being on this dose for 6-8 weeks. Jane Baig APRN.EDITA [facility] 09-04-2023 Telephone encounter Note Pt notified. Marcio Padron LPN [facility] 09-04-2023 Miscellaneous Notes Pt notified. Marcio Padron LPN Orders are in. Jane Baig APRN.[employer] Patient calling to update PCP that she believes she has a possible UTI. Patient asking if provider would place urine lab orders so she can come in to give sample without making OV appt? Reports over the last several days her urine has smelled very foul, like skunk. Frequency: No. Urgency: No. Dysuria: No. Hematuria: No. Urine leakage: Yes. Fever/Chills: no. Abdominal Pain: No. Back Pain: Nothing worse than her normal back discomfort. Nausea/vomiting: No. Frequency UTIs: Yes - over the years. Vaginal symptoms: No. Please advise patient. Thank you. documented in this encounter [facility] 09-04-2023 Telephone encounter Note Orders are in. Jane Baig APRN.EDITA [facility] 09-04-2023 Telephone encounter Note Patient calling to update PCP that she believes she has a possible UTI. Patient asking if provider would place urine lab orders so she can come in to give sample without making OV appt? Reports over the last several days her urine has smelled very foul, like skunk. Frequency: No. Urgency: No. Dysuria: No. Hematuria: No. Urine leakage: Yes. Fever/Chills: no. Abdominal Pain: No. Back Pain: Nothing worse than her normal back discomfort. Nausea/vomiting: No. Frequency UTIs: Yes - over the years. Vaginal symptoms: No. Please advise patient. Thank you. [facility] 09-04-2023 Telephone encounter Note Letter placed in mail. Marcio Padron LPN [facility] 09-04-2023 Miscellaneous Notes Letter placed in mail. Marcio Padron LPN Letter printed. Jane Baig APRN.EDITA Pt calls to report she needs rx for handicap placard. Pt is requesting one that lasts for more than one year. Mail rx to pt's home. Kay Elise LPN documented in this encounter [facility] 09-03-2023 Telephone encounter Note Letter printed. Jane Baig APRN.CNP [facility] 09-03-2023 Telephone encounter Note Pt calls to report she needs rx for handicap plactodd. Pt is requesting one that lasts for more than one year. Mail rx to pt's home. Kay Elise LPN [facility] 08-14-2023 Telephone encounter Note Patient notified of results, verbalizes understanding of instructions. Stephanie Allen LPN [facility] 08-14-2023 Miscellaneous Notes Patient notified of results, verbalizes understanding of instructions. Stephanie Allen LPN Can please let patient know that I received her MRI results. Everything looks okay. There are some age-related changes, but no evidence of having a stroke. documented in this encounter [facility] 08-14-2023 Telephone encounter Note Can please let patient know that I received her MRI results. Everything looks okay. There are some age-related changes, but no evidence of having a stroke. [facility] 08-14-2023 History of Present illness Narrative Radiology Service Progress Note PATIENT NAME: Marcelo Gonzalez DATE OF SERVICE: August 14, 2023 TIME: 8:13 AM PATIENT IDENTITY VERIFICATION COMPLETED USING TWO (2) IDENTIFIERS: Name and Date of confirmed by patient verbally. FALL SCREENING: Has the patient had 2 falls in the last year or 1 fall with injury or currently using an Ambulatory Assistive Device (Walker, Cane, Wheelchair, Crutches, etc.)? Yes, Patient High Risk for Falls What interventions were put in place to prevent falls during this visit? Instructed Patient to Call for Help if Needed, Offered Assistance with Transfers/Clothing, Instructed Patient to Remain Seated (Not on Exam Table) Until Exam, and Increased Observations by Caregivers PATIENT GENDER DATA: Female. status: : No status: NO. PATIENT RELEVANT IMPLANT DATA REVIEWED: Yes PATIENT PRESENTS WITH AN IMPLANTABLE OR ATTACHED GROCERY CLERK CHECKING: No RADIOLOGY DEPARTMENT: MR; Exam(s) Completed: Head: Routine Brain PERIPHERAL IV DATA: Not applicable SIGNED BY: RT Oswaldo(Anthony) August 14, 2023 8:13 AM documented in this encounter [facility] 07-24-2023 Telephone encounter Note SOCIAL WORK FOLLOW UP NOTE: [facility] Date of service: July 24, 2023 SW received an email from pt's daughter this date. She supplied a letter received from the [employer] informing pt she needs to submit an updated claim by 07/28. KIRAN forwarded letter by email to financial navigator who manages these funds and claim submissions. GIULIA Hernandez [facility] 07-24-2023 Miscellaneous Notes SOCIAL WORK FOLLOW UP NOTE: [facility] Date of service: July 24, 2023 KIRAN received an email from pt's daughter this date. She supplied a letter received from the [employer] informing pt she needs to submit an updated claim by 07/28. KIRAN forwarded letter by email to financial navigator who manages these funds and claim submissions. GIULIA Hernandez documented in this encounter [facility] 07-19-2023 Telephone encounter Note Pt called and is notified of providers results and instructions. Pt voices understanding. Let Pt know her Janna sherwood was at [facility] and I called and they are going to get it ready for her. Joana Dhaliwal RN [facility] 07-19-2023 Miscellaneous Notes Pt called and is notified of providers results and instructions. Pt voices understanding. Let Pt know her Janna sherwood was at [facility] and I called and they are going to get it ready for her. Joana Dhaliwal RN Can please let patient know that I received her repeat thyroid labs. It was actually done too early, but it does show that she isn't getting enough medication. Lets increase her dose to 112 mcg. (Different than what she took pre-hospital). Please recheck lab in 6-8 weeks. The order is in. Jane Baig APRN.EDITA documented in this encounter [facility] 07-19-2023 Telephone encounter Note Can please let patient know that I received her repeat thyroid labs. It was actually done too early, but it does show that she isn't getting enough medication. Lets increase her dose to 112 mcg. (Different than what she took pre-hospital). Please recheck lab in 6-8 weeks. The order is in. Jane Baig APRN.CNP [facility] 07-17-2023 History of Present illness Narrative Chief Complaint Patient presents with: Established Patient HPI: Marcelo Gonzalez is a 77 year old female who presents here today for follow up CLL. Per Dr. Salas's previous note: H/o essential hypertension, hyperlipidemia, GERD, hypothyroidism, osteoarthritis of the knees, degenerative disease of the lumbar spine and possibly RA. Patient was noted to have bilateral axillary adenopathy on a screening mammogram done 06/20/2020. Multiple axillary nodes were noted in the right breast posterior depth upper region and multiple axillary nodes were observed in the left breast posterior depth upper region. Multiple enlarged lymph nodes were observed in the left axilla on US. They had thickened cortexes. There was one enlarged lymph node in the right axilla on ultrasound. And ultrasound core needle biopsy of one of the left axillary lymph nodes was performed on 07/14/2020. 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 Current therapy: Began Imbruvica 09/14/20. Pt. called in c/o fatigue on 06/29/21-imbruvica dose lowered to [address] Salas. S/p L total knee on May 21, [address] Reid. Pt. was hospitalized for pneumonia at [facility]. Discharged 07/11/23. Was seen by PCP on Saturday for discharge f/u. Pt. here with her daughter and spouse. Appetite:So so. Wt. down 1#. Energy level:None. Denies fevers. Mouth:denies sores Resp:denies cough or sob Cardiac:denies chest pain/palpitations GI:denies abd pain, n/v, moving bowels regularly-takes miralax prn :denies dysuria/hematuria Extrem:denies pain Neuro:denies symptoms of neuropathy Skin:denies rashes Heme:denies bleeding The ROS is otherwise negative. Past medical history, appointments, medications, allergies reviewed. No changes. EXAM: BP 144/85 Pulse 70 Temp 36.7 C (98 F) (Temporal) Wt 74.4 kg (164 lb) SpO2 95% BMI 32.63 kg/m APPEARANCE Well appearing, alert, in no acute distress, well-hydrated, well nourished. HEART RRR with normal S1 and S2, no murmurs LUNG clear to auscultation LYMPH NODES No cervical lymphadenopathy, No supraclavicular lymphadenopathy, and No axillary lymphadenopathy. ABDOMEN bowel sounds normoactive, soft, non-tender EXTREMITIES No edema NEURO Awake, alert and oriented x 3, Normal gait, and No involuntary motions. SKIN Skin color, texture, turgor normal, no suspicious rashes or lesions LABS: Pending ASSESSMENT/PLAN: 1. CLL (chronic lymphocytic leukemia) (HCC) - ICD9: 204.10, ICD10: C91.10 - No new concerning findings on exam. - Tolerating lower dose of imbruvica better-2 capsules daily. Energy improved. - CBC/CMP pending. - Follow up with Cardiology/Ortho/PCP as scheduled. - Continue current dose of imbruvica. - Follow up with Chapo Baig CNP as scheduled. - CBC/CMP monthly. - Follow up in 3 months with CBC/CMP (move August). - Pt. aware to call office with any questions/concerns. The patient indicates understanding of these issues and agrees with the plan. All documentation from previous visit of 05/27/23-Dr. Salas/myself was copied and pasted, documentation has been reviewed and edited as necessary for today's visit. Cristina Taylor APRN.EDITA documented in this encounter [facility] 07-15-2023 Instructions Jane Baig APRN.CNP - 07/15/2023 10:40 AM EDT Schedule the MRI. Schedule the carotid ultrasound. Finish the antibiotics. Recheck thyroid labs in 6 weeks. documented in this encounter [facility] 07-15-2023 History of Present illness Narrative This is a 77 year old female who presents today with: Patient presents with: Hospital Follow Up: [facility] madeline'michael 07/10 dx pneumonia HISTORY OF PRESENT ILLNESS: Marcelo Gonzalez is a 77 year old female. Patient presents with: Hospital Follow Up: [facility] dc'd 07/10 dx pneumonia Pt presents today for hospital follow-up. Patient presented to [facility] on 07/09/2023 with complaints of URI symptoms and cough for 1 week. She was found to have a right lower lobe community-acquired pneumonia. Viral PCR for COVID, influenza, and RSV were negative. Strep throat culture is negative. She was started on IV Levaquin in the emergency room and continued. White count was 17,000. Preliminary blood cultures were negative. She was also noted to have a syncopal episode prior to ER presentation. Blood pressure was low in triage. It was better after IV fluid. (Spouse notes was unresponsive in car with eyes wide open, arms outstretched, drooling.) Patient with CKD stage IIIb. Creatinine on admission was 1.28 with a normal BUN. She had mild hypokalemia and her potassium was replaced. On discharge, her creatinine was down to 1.01. Her ibrutinib was placed on hold that she could resume after discharge. Chest CT showed no suspicious nodules. Her levothyroxine was decreased to 100 mcg daily due to her free T4 being 1.56. Since being home, she is fatigued. She has one more day of levaquin. She is eating and drinking. Her breathing is okay. Still has a cough, but is improving. Occ productive for yellow or clear mucus. No known fever/chills. She is urinating. Some constipation and will like take a laxative. PAST MEDICAL HISTORY: PAST MEDICAL HISTORY Diagnosis Date Allergic rhinitis due to animal hair and dander + testing dander, dust, outside. Cristofer [facility] E[facility]. Arthritis of both knees 03/04/2012 CKD (chronic kidney disease), stage III (HCC) Degeneration of intervertebral disc, site unspecified Degenerative arthritis of hip 03/04/2012 Diverticulosis of colon (without mention of hemorrhage) Endometriosis Family history of malignant neoplasm of gastrointestinal tract Hyperlipidemia Hypertension Internal hemorrhoids without mention of complication Other specified gastritis Unspecified hypothyroidism PAST SURGICAL HISTORY Procedure Laterality Date ARTHRP ACETBLR/PROX FEM PROSTC AGRFT/ALGRFT 2012 Left Hip ARTHRP ACETBLR/PROX FEM PROSTC AGRFT/ALGRFT Right 01/21/2017 Dr. Reid COLONOSCOPY FLX DX W/COLLJ SPEC WHEN PFRMD 12/16/08 DILATION & CURETTAGE DX&/THER NONOBSTETRIC 1970's multiple LAMINECTOMY W/O FFD > 2 VERT SEG LUMBAR 2009 titanium chris PAST SURGICAL HISTORY OF 2001 FOOT SURGERY PAST SURGICAL HISTORY OF Jan 2004 Dr. Mclean - Back Surgery-upper back - metal rods and cadaver bone TOTAL ABDOMINAL HYSTERECT W/WO RMVL TUBE OVARY 1986 Hysterectomy, ANDREW/BSO ALLERGIES Lyrica [Pregabalin], Penicillins, Amoxicillin, Codeine, Doxycycline Hcl, Fentanyl, Keflex [Cephalexin], Latex, Lisinopril, Meloxicam, Mirapex [Pramipexole], Oxycodone, Sulfa (Sulfonamide Antibiotics), Trazodone (Bulk), Ultram [Tramadol Hcl], Versed [Midazolam Hcl], and Zetia [Ezetimibe] MEDICATIONS Current Outpatient Medications Medication Sig benzonatate (TESSALON PERLE) 100 mg capsule Take 2 capsules by mouth three times a day as needed. fluticasone (FLONASE) 50 mcg/actuation nasal spray Use 2 Sprays in each nostril once daily. Rinse mouth after use. levothyroxine (LEVOXYL) 125 mcg tablet Take 1 tablet by mouth once daily. Take on empty stomach. For thyroid. Oxyquinoline-Na Lauryl Sulfate (TRIMO-SCHUSTER JELLY) 0.025-0.01 % gel Use 1 Inch vaginally two times a week. escitalopram oxalate (LEXAPRO) 10 mg tablet Take 1 tablet by mouth once daily. (Patient taking differently: Take 5 mg by mouth once daily.) losartan (COZAAR) 100 mg tablet Take 1 tablet by mouth once daily. hydroCHLOROthiazide 25 mg tablet Take 1 tablet by mouth once daily. allopurinol (ZYLOPRIM) 100 mg tablet Take 1 tablet by mouth once daily. ibrutinib (IMBRUVICA) 140 mg capsule Take 2 capsules (280mg) by mouth once daily with a glass of water pantoprazole DR (PROTONIX) 40 mg tablet Take 1 tablet by mouth twice daily. acetaminophen (TYLENOL ARTHRITIS ORAL) Take 1 tablet by mouth twice daily as needed. cetirizine (ZYRTEC) 10 mg tablet Take 10 mg by mouth once daily. PRN OTC PRODUCT Take 1 capsule by mouth once daily. Plexus nerve No current facility-administered medications for this visit. FAMILY HISTORY Problem Relation Age of Onset Hypertension Mother Stroke Mother other (DIVERTICULITIS) Mother Heart Father Hypertension Father Colon Cancer Sister age 48-50 Diabetes Maternal Grandmother Thyroid Sister X-2 Thyroid Child 2 Daughters Asthma No Family History Allergies No Family History Social History Tobacco Use Smoking status: Former Types: Cigarettes Smokeless tobacco: Never Tobacco comments: None since age 20s. No smoking in childhood home. Spouse of 56 years stopped smoking 1974. Vaping Use Vaping Use: Never used Substance Use Topics Alcohol use: No Drug use: No EXAM: BP 126/78 Pulse 81 Resp 16 SpO2 95% PHYSICAL EXAM: General Appearance: Well appearing, alert, in no acute distress, well-hydrated, well nourished.. Skin: Skin color, texture, turgor normal, no suspicious rashes or lesions. Head: Normocephalic, no masses, lesions, tenderness or abnormalities. Eyes: Anicteric sclera. Pupils are equally round and reactive to light. Extraocular movements are intact. . Ears: External ears normal, canals clear. Oropharynx: Lips, mucosa, and tongue normal, teeth and gums normal, oropharynx normal. Neck: Supple, no adenopathy; thyroid symmetric, normal size, no bruits. Lungs: Lungs clear to auscultation. No wheezing, rhonchi, rales.. Heart: RRR without murmur, gallop, or rubs. No ectopy. Extremities: No deformities, edema, skin discoloration, clubbing or cyanosis. Good capillary refill. . Neurologic: Gait normal. Reflexes normal and symmetric. Sensation grossly intact., Negative findings: speech normal, mental status intact, muscle tone normal, muscle strength normal, finger to nose normal. .ASSESSMENT/PLAN: 1. Pneumonia of right lower lobe due to infectious organism - ICD9: 486, ICD10: J18.9 (primary diagnosis) Finish the antibiotic, as prescribed. Notify provider of any new/worsening symptoms. 2. Transient cerebral ischemia, unspecified type - ICD9: 435.9, ICD10: G45.9 R/o TIA/CVA with syncopal episode. - MRI BRAIN WO IVCON 3. Syncope, unspecified syncope type - ICD9: 780.2, ICD10: R55 Get carotid duplex. She had holter and echo in 2022. - US CAROTID ARTERIES [facility] 4. Abnormal thyroid function test - ICD9: 794.5, ICD10: R94.6 Recheck tsh in 6 weeks. - THYROID STIMULATING HORMONE - T4 FREE/FREE THYROXINE Discussed treatment plan and patient voices understanding. Patient's questions answered appropriately. Medications and potential side effects were discussed and patient voices understanding. Return to the office as scheduled or as needed for worsening/no improvement. Jane Baig APRN.EDITA documented in this encounter [facility] 07-10-2023 Telephone encounter Note Noted. Jane Baig APRN.EDITA [facility] 07-10-2023 Miscellaneous Notes Noted. Jane Baig APRN.EDITA H&P scanned into [employer]. Marcio Padron LPN Noted. Can we get hospital records. Jane Baig APRN.CNP Pts spouse called with update that pt is admitted at [facility]. She came for appointment yesterday but passed out on him twice in route so he decided to take her to the hospital instead. documented in this encounter [facility] 07-10-2023 Telephone encounter Note H&P scanned into Epic. Marcio Padron LPN [facility] 07-10-2023 Telephone encounter Note Noted. Can we get hospital records. Jane Baig APRN.CNP [facility] 07-10-2023 Telephone encounter Note Pts spouse called with update that pt is admitted at [facility]. She came for appointment yesterday but passed out on him twice in route so he decided to take her to the hospital instead. [facility] Work Phone: 07-04-2023 Telephone encounter Note Patient notified of results, verbalized understanding of instructions given. Alivia Reid MA [facility] 07-04-2023 Miscellaneous Notes Patient notified of results, verbalized understanding of instructions given. Alivia Reid MA You tested negative for COVID, Influenza, and RSV. Please contact us if your symptoms are worsening or not improving. Please advise patient. documented in this encounter [facility] 07-04-2023 Telephone encounter Note You tested negative for COVID, Influenza, and RSV. Please contact us if your symptoms are worsening or not improving. Please advise patient. [facility] Work Phone: 07-04-2023 History of Present illness Narrative Subjective HPI HPI Marcelo Gonzalez is a 77 year old female who presents today for CC of cough, congestion, sinus pressure, ear pain. This started 2 days ago. Has tried otc medication for relief. Symptoms are worsened by nothing. Risk factors sick exposures at home. .Patient presents with: Cough: Sore throat and ear pain x2 days PAST MEDICAL HISTORY Diagnosis Date Allergic rhinitis due to animal hair and dander + testing dander, dust, outside. Cristofer Alcantara ENT. Arthritis of both knees 03/04/2012 CKD (chronic kidney disease), stage III (HCC) Degeneration of intervertebral disc, site unspecified Degenerative arthritis of hip 03/04/2012 Diverticulosis of colon (without mention of hemorrhage) Endometriosis Family history of malignant neoplasm of gastrointestinal tract Hyperlipidemia Hypertension Internal hemorrhoids without mention of complication Other specified gastritis Unspecified hypothyroidism PAST SURGICAL HISTORY Procedure Laterality Date ARTHRP ACETBLR/PROX FEM PROSTC AGRFT/ALGRFT 2012 Left Hip ARTHRP ACETBLR/PROX FEM PROSTC AGRFT/ALGRFT Right 01/21/2017 Dr. Reid COLONOSCOPY FLX DX W/COLLJ SPEC WHEN PFRMD 12/16/08 DILATION & CURETTAGE DX&/THER NONOBSTETRIC 1969' multiple LAMINECTOMY W/O FFD > 2 VERT SEG LUMBAR 2009 titanium chris PAST SURGICAL HISTORY OF 2001 FOOT SURGERY PAST SURGICAL HISTORY OF Jan 2004 Dr. Mclean - Back Surgery-upper back - metal rods and cadaver bone TOTAL ABDOMINAL HYSTERECT W/WO RMVL TUBE OVARY 1986 Hysterectomy, ANDREW/BSO ALLERGIES Lyrica [Pregabalin], Penicillins, Amoxicillin, Codeine, Doxycycline Hcl, Fentanyl, Keflex [Cephalexin], Latex, Lisinopril, Meloxicam, Mirapex [Pramipexole], Oxycodone, Sulfa (Sulfonamide Antibiotics), Trazodone (Bulk), Ultram [Tramadol Hcl], Versed [Midazolam Hcl], and Zetia [Ezetimibe] MEDICATIONS levothyroxine (LEVOXYL) 125 mcg tablet Take 1 tablet by mouth once daily. Take on empty stomach. For thyroid. Oxyquinoline-Na Lauryl Sulfate (TRIMO-SCHUSTER JELLY) 0.025-0.01 % gel Use 1 Inch vaginally two times a week. losartan (COZAAR) 100 mg tablet Take 1 tablet by mouth once daily. hydroCHLOROthiazide 25 mg tablet Take 1 tablet by mouth once daily. allopurinol (ZYLOPRIM) 100 mg tablet Take 1 tablet by mouth once daily. ibrutinib (IMBRUVICA) 140 mg capsule Take 2 capsules (280mg) by mouth once daily with a glass of water pantoprazole DR (PROTONIX) 40 mg tablet Take 1 tablet by mouth twice daily. acetaminophen (TYLENOL ARTHRITIS ORAL) Take 1 tablet by mouth twice daily as needed. cetirizine (ZYRTEC) 10 mg tablet Take 10 mg by mouth once daily. PRN OTC PRODUCT Take 1 capsule by mouth once daily. Plexus nerve escitalopram oxalate (LEXAPRO) 10 mg tablet Take 1 tablet by mouth once daily. (Patient taking differently: Take 5 mg by mouth once daily.) FAMILY HISTORY Problem Relation Age of Onset Hypertension Mother Stroke Mother other (DIVERTICULITIS) Mother Heart Father Hypertension Father Colon Cancer Sister age 48-50 Diabetes Maternal Grandmother Thyroid Sister X-2 Thyroid Child 2 Daughters Asthma No Family History Allergies No Family History Social History Tobacco Use Smoking status: Former Types: Cigarettes Smokeless tobacco: Never Tobacco comments: None since age 20s. No smoking in childhood home. Spouse of 56 years stopped smoking 1974. Vaping Use Vaping Use: Never used Substance Use Topics Alcohol use: No Drug use: No Review of Systems Constitutional: Negative for fever. HENT: Positive for congestion, ear pain and sinus pain. Negative for nosebleeds and sore throat. Respiratory: Positive for cough. Negative for shortness of breath and wheezing. Cardiovascular: Negative for chest pain. Musculoskeletal: Negative for neck pain. Skin: Negative for itching and rash. Objective Blood pressure 130/70, pulse 67, temperature 36.8 C (98.3 F), resp. rate 16, weight 74.1 kg (163 lb 5.8 oz), SpO2 96%. Physical Exam Constitutional: General: She is not in acute distress. Appearance: She is not toxic-appearing or diaphoretic. HENT: Head: Normocephalic and atraumatic. Salivary Glands: Right salivary gland is tender. Left salivary gland is tender. Right Ear: Hearing, ear canal and external ear normal. A middle ear effusion is present. Tympanic membrane is not perforated, erythematous or bulging. Left Ear: Hearing, tympanic membrane, ear canal and external ear normal. Nose: Nose normal. Mouth/Throat: Pharynx: Uvula midline. No pharyngeal swelling, oropharyngeal exudate, posterior oropharyngeal erythema or uvula swelling. Eyes: General: Lids are normal. No scleral icterus. Right eye: No discharge. Left eye: No discharge. Conjunctiva/sclera: Conjunctivae normal. Pupils: Pupils are equal, round, and reactive to light. Neck: Trachea: Trachea normal. Cardiovascular: Rate and Rhythm: Normal rate and regular rhythm. Heart sounds: Normal heart sounds. Pulmonary: Effort: Pulmonary effort is normal. Breath sounds: Normal breath sounds. Musculoskeletal: Cervical back: Normal range of motion and neck supple. Lymphadenopathy: Cervical: No cervical adenopathy. Right cervical: No superficial cervical adenopathy. Left cervical: No superficial cervical adenopathy. Skin: Findings: No rash. Neurological: Mental Status: She is alert and oriented to person, place, and time. ASSESSMENT/PLAN: 1. URI, acute - ICD9: 465.9, ICD10: J06.9 (primary diagnosis) - Discussed viral etiology and rationale for treatment. - Symptomatic treatment with prn analgesia - Supportive care with fluids and rest - Follow up in 3-5 days if symptoms persist or sooner if worsening of symptoms - BENZONATATE 100 MG CAPSULE - FLUTICASONE PROPIONATE 50 MCG/ACTUATION NASAL SPRAY,SUSPENSION - COVID & INFLUENZA A/B & RSV NAAT, ROUTINE 2. ETD (Eustachian tube dysfunction), right - ICD9: 381.81, ICD10: H69.91 -use medication as prescribed -follow up if symptoms persist, worsen, change - PREDNISONE 20 MG TABLET - FLUTICASONE PROPIONATE 50 MCG/ACTUATION NASAL SPRAY,SUSPENSION Jair Gomez APRN.EDITA documented in this encounter [facility] 06-11-2023 Instructions Jane Baig APRN.EDITA - 06/11/2023 3:08 PM EDT Start the antibiotic. Stay well hydrated. If no better/worsening, let us know. documented in this encounter [facility] 06-11-2023 History of Present illness Narrative 77 year old female with c/o of urinary symptoms X for nearly a week. Frequency: Yes. Urgency: Yes. Dysuria: No. Hematuria: No. Urine leakage: Yes. Fever/Chills: no. Abdominal Pain: No. Back Pain: just normal. Nausea/vomiting: No. Frequency UTIs: Yes - over the years. Last URI was in February. Vaginal symptoms: No. : No. ACTIVE PROBLEM LIST Hypothyroidism Backache, Unspecified Essential Hypertension, Benign Hyperlipidemia Gerd (Gastroesophageal Reflux Disease) Lumbar Disc Prolapse With Compression Radiculopathy Vitamin D Deficiency Viral Exanthem Other Specified Erythematous Condition(315.89) Pruritus Xerosis Cutis Pityriasis rosea: atypical Arthritis of Both Knees Degenerative Arthritis of Hip Pain in Joint, Pelvic Region and Thigh S/P Hip Replacement TMJ Dysfunction Mixed Anxiety Depressive Disorder Allergic Rhinitis Due to Animal Hair and Dander Obesity, Class I, Bmi 30-34.9 Chronic Pain of Left Knee Primary Osteoarthritis of Left Knee Rex (Acute Kidney Injury) (Hcc) Cll (Chronic Lymphocytic Leukemia) (Hcc) Ckd (Chronic Kidney Disease), Stage Iii (Hcc) Seborrheic Keratoses Immunocompromised State (Hcc) Rheumatoid Arthritis, Involving Unspecified Site, Unspecified Whether Rheumatoid Factor Present (Hcc) 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 Take on empty stomach. For thyroid. 30 tablet 2 Oxyquinoline-Na Lauryl Sulfate (TRIMO-SCHUSTER JELLY) 0.025-0.01 % gel Use 1 Inch vaginally two times a week. 113.4 g 1 escitalopram oxalate (LEXAPRO) 10 mg tablet Take 1 tablet by mouth once daily. (Patient taking differently: Take 5 mg by mouth once daily.) 90 tablet 1 losartan (COZAAR) 100 mg tablet Take 1 tablet by mouth once daily. 90 tablet 3 hydroCHLOROthiazide 25 mg tablet Take 1 tablet by mouth once daily. 90 tablet 3 allopurinol (ZYLOPRIM) 100 mg tablet Take 1 tablet by mouth once daily. 90 tablet 3 ibrutinib (IMBRUVICA) 140 mg capsule Take 2 capsules (280mg) by mouth once daily with a glass of water [address] (PROTONIX) 40 mg tablet Take 1 tablet by mouth twice daily. 180 tablet 3 acetaminophen (TYLENOL ARTHRITIS ORAL) Take 1 tablet by mouth twice daily as needed. cetirizine (ZYRTEC) 10 mg tablet Take 10 mg by mouth once daily. PRN OTC PRODUCT Take 1 capsule by mouth once daily. Plexus nerve No current facility-administered medications for this visit. General Appearance: Well appearing, alert, in no acute distress, well-hydrated, well nourished.. Skin: Skin color, texture, turgor normal, no suspicious rashes or lesions. Head: Normocephalic, no masses, lesions, tenderness or abnormalities. Eyes: Anicteric sclera. Extraocular movements are intact. Lungs: Lungs clear to auscultation. No wheezing, rhonchi, rales. Heart: RRR without murmur, gallop, or rubs. No ectopy. Abdomen: Abdomen soft, non-tender. No masses, organomegaly. No CVA tenderness. Neurologic: Gait normal. ASSESSMENT/PLAN: 1. Acute cystitis without hematuria - ICD9: 595.0, ICD10: N30.00 (primary diagnosis) Urine + for microscopic hematuria and leuks. Will go ahead and send for culture and start macrobid. Stay well hydrated. Let provider know if no better/worsening symptoms. - NITROFURANTOIN MONOHYDRATE & MACROCRYSTAL 100 MG ORAL CAP - URINE CULTURE 2. Urinary frequency - ICD9: 788.41, ICD10: R35.0 - UA DIP, URINE (POC) Discussed treatment plan and patient voices understanding. Patient's questions answered appropriately. Medications and potential side effects were discussed and patient voices understanding. Return to the office as scheduled or as needed for worsening/no improvement. Jane Baig APRN.[employer] documented in this encounter [facility] 06-11-2023 Miscellaneous Notes Pt needs appt to properly address concerns. Phoned pt, notified of need for appt. Appt scheduled. Marcio Padron LPN Marcelo is calling Jane Baig APRN.CNP today with concern regarding UTI (Frequent urination )she is asking for something to help with this UTI. Patient does not want to come in. Please advise Patient has been identified by name and birthdate. Duration of symptoms: 2 days Person calling: self Call patient at: at home [phone] (home) [phone] (cell) Was an appointment scheduled: No Closing statement: Symptom Call: Thank you for calling [facility], your call is very important. A nurse will call in approximately 2-4 hours during business hours. If this is an emergency, please contact 911. Cathy Darling Pss documented in this encounter [facility] 05-30-2023 Miscellaneous Notes Patient has been identified by name and date of : Yes, Provider Jovanni Patient phones for refill(s): Requested Prescriptions Pending Prescriptions Disp Refills levothyroxine (LEVOXYL) 125 mcg tablet 30 tablet 2 Sig: Take 1 tablet by mouth once daily. Take on empty stomach. For thyroid. Date of last office visit in primary care: 04/10/2023 Date of next office visit in primary care: 10/09/2023 Please advise. Thank you. Mary Lafleur Pss. documented in this encounter [facility] 05-27-2023 History of Present illness Narrative Chief Complaint Patient presents with: Established Patient HPI: Marcelo Gonzalez is a 77 year old female who presents here today for follow up CLL. Per Dr. Salas's previous note: H/o essential hypertension, hyperlipidemia, GERD, hypothyroidism, osteoarthritis of the knees, degenerative disease of the lumbar spine and possibly RA. Patient was noted to have bilateral axillary adenopathy on a screening mammogram done 06/20/2020. Multiple axillary nodes were noted in the right breast posterior depth upper region and multiple axillary nodes were observed in the left breast posterior depth upper region. Multiple enlarged lymph nodes were observed in the left axilla on US. They had thickened cortexes. There was one enlarged lymph node in the right axilla on ultrasound. And ultrasound core needle biopsy of one of the left axillary lymph nodes was performed on 07/14/2020. 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 Current therapy: Began Imbruvica 09/14/20. Pt. called in c/o fatigue on 06/29/21-imbruvica dose lowered to [address] Salas. S/p L total knee on May 21, [address] Reid. No new concerns today. Pt. here with her daughter. Appetite:Good. Wt. stable. Energy level:I've been getting more done. Denies fevers or recent illness. Mouth:denies sores Resp:denies cough or sob at rest, jones long distances Cardiac:denies chest pain/palpitations GI:denies abd pain, n/v, moving bowels regularly :denies dysuria/hematuria Extrem:denies pain Neuro:denies symptoms of neuropathy Skin:denies rashes Heme:denies bleeding The ROS is otherwise negative. Past medical history, appointments, medications, allergies reviewed. No changes. EXAM: BP 150/82 Pulse (!) 59 Temp 36.8 C (98.2 F) (Temporal) Wt 75.1 kg (165 lb 9.6 oz) SpO2 97% BMI 32.94 kg/m APPEARANCE Well appearing, alert, in no acute distress, well-hydrated, well nourished. HEART RRR with normal S1 and S2, no murmurs LUNG clear to auscultation LYMPH NODES No cervical lymphadenopathy, No supraclavicular lymphadenopathy, and No axillary lymphadenopathy. ABDOMEN bowel sounds normoactive, soft, non-tender EXTREMITIES No edema NEURO Awake, alert and oriented x 3, using cane, and No involuntary motions. SKIN Skin color, texture, turgor normal, no suspicious rashes or lesions LABS: Latest Ref Rng 04/01/2023 04/29/2023 05/27/2023 WBC 3.70 - 11.00 k/uL 9.00 7.87 7.67 RBC 3.90 - 5.20 m/uL 3.92 3.66 (L) 4.10 Hemoglobin 11.5 - 15.5 g/dL 11.9 11.0 (L) 12.4 Hematocrit 36.0 - 46.0 % 36.5 33.2 (L) 37.8 MCV 80.0 - 100.0 fL 93.1 90.7 92.2 MCH 26.0 - 34.0 pg 30.4 30.1 30.2 MCHC 30.5 - 36.0 g/dL 32.6 33.1 32.8 RDW-CV 11.5 - 15.0 % 14.0 14.2 14.1 Platelet Count 150 - 400 k/uL 336 304 322 MPV 9.0 - 12.7 fL 10.1 10.1 10.4 NRBC /100 WBC 0.0 0.0 0.0 Absolute nRBC <0.01 k/uL <0.01 <0.01 <0.01 Neut% % 60.0 62.0 63.9 Abs Neut (ANC) 1.45 - 7.50 k/uL 5.40 4.88 4.90 Lymph% % 21.0 21.6 19.8 Abs Lymph 1.00 - 4.00 k/uL 1.89 1.70 1.52 [place]% % 14.0 12.1 12.5 Abs [place] <0.87 k/uL 1.26 (H) 0.95 (H) 0.96 (H) Eosin% % 3.0 1.8 1.3 Abs Eosin <0.46 k/uL 0.27 0.14 0.10 Baso% % 2.0 2.0 1.7 Abs Baso <0.11 k/uL 0.18 (H) 0.16 (H) 0.13 (H) Platelet Estimate Adequate Red Cell Morph Reviewed: see results of individual morphologies Ovalocytes Few DTYPE Manual Auto Auto Immature Gran % % 0.5 0.8 IMMATURE GRANS (ABS) <0.10 k/uL 0.04 0.06 CMP: Pending ASSESSMENT/PLAN: 1. CLL (chronic lymphocytic leukemia) (HCC) - ICD9: 204.10, ICD10: C91.10 - No new concerning findings on exam. - Tolerating lower dose of imbruvica better-2 capsules daily. Energy improved. - Reviewed CBC with pt. and family member. - CMP pending. - Follow up with Cardiology/Ortho/PCP as scheduled. - Continue current dose of imbruvica. - Follow up with Chapo Baig CNP as scheduled. - CBC/CMP monthly. - Follow up in 3 months with CBC/CMP. - Pt. aware to call office with any questions/concerns. The patient indicates understanding of these issues and agrees with the plan. All documentation from previous visit of 03/04/23-Dr. Salas/myself was copied and pasted, documentation has been reviewed and edited as necessary for today's visit. Cristina Taylor APRN.GOL[employer]ALL [employer]ER documented in this encounter [facility] 04-10-2023 Instructions Jane Baig APRN.EDITA - 04/10/2023 11:38 AM EST Continue the same dose of medications. Continue tylenol as needed for aches/pains. Saline nasal spray. Coricidin HBP to help with sinus symptoms. Stay well hydrated. Recheck in 3-4 months. documented in this encounter [facility] 04-10-2023 History of Present illness Narrative This is a 77 year old female who presents today with: Patient presents with: Recheck: 1 month follow up HISTORY OF PRESENT ILLNESS: Marcelo Gonzalez is a 77 year old female. Patient presents with: Recheck: 1 month follow up Pt presents today for 1 month follow-up. At last visit, her lexapro was decreased. She reports that she is taking a whole pill (10 mg) daily and this has been working for her. She feels the higher dose was just too much for her body. Refers her memory as been normal. She reports that she has been having some sinus symptoms. Started a couple of days ago. + head congestion. No fevers/chills. Dry cough at night. Not blowing much out of the nose. No ear pain. NO n/v/d. She took some tylenol for the symptoms. PAST MEDICAL HISTORY: PAST MEDICAL HISTORY Diagnosis Date Allergic rhinitis due to animal hair and dander + testing dander, dust, outside. Cristofer Alcantara ENT. Arthritis of both knees 03/04/2012 CKD (chronic kidney disease), stage III (HCC) Degeneration of intervertebral disc, site unspecified Degenerative arthritis of hip 03/04/2012 Diverticulosis of colon (without mention of hemorrhage) Endometriosis Family history of malignant neoplasm of gastrointestinal tract Hyperlipidemia Hypertension Internal hemorrhoids without mention of complication Other specified gastritis Unspecified hypothyroidism PAST SURGICAL HISTORY Procedure Laterality Date ARTHRP ACETBLR/PROX FEM PROSTC AGRFT/ALGRFT 2012 Left Hip ARTHRP ACETBLR/PROX FEM PROSTC AGRFT/ALGRFT Right 01/21/2017 Dr. Reid COLONOSCOPY FLX DX W/COLLJ SPEC WHEN PFRMD 12/16/08 DILATION & CURETTAGE DX&/THER NONOBSTETRIC 1969' multiple LAMINECTOMY W/O FFD > 2 VERT SEG LUMBAR 2009 titanium chris PAST SURGICAL HISTORY OF 2001 FOOT SURGERY PAST SURGICAL HISTORY OF Jan 2004 Dr. Mclean - Back Surgery-upper back - metal rods and cadaver bone TOTAL ABDOMINAL HYSTERECT W/WO RMVL TUBE OVARY 1986 Hysterectomy, ANDREW/BSO ALLERGIES Lyrica [Pregabalin], Penicillins, Amoxicillin, Codeine, Doxycycline Hcl, Fentanyl, Keflex [Cephalexin], Latex, Lisinopril, Meloxicam, Mirapex [Pramipexole], Oxycodone, Sulfa (Sulfonamide Antibiotics), Trazodone (Bulk), Ultram [Tramadol Hcl], Versed [Midazolam Hcl], and Zetia [Ezetimibe] MEDICATIONS Current Outpatient Medications Medication Sig losartan (COZAAR) 100 mg tablet Take 1 tablet by mouth once daily. hydroCHLOROthiazide 25 mg tablet Take 1 tablet by mouth once daily. escitalopram oxalate (LEXAPRO) 10 mg tablet Take 0.5 tablets by mouth once daily. levothyroxine (LEVOXYL) 125 mcg tablet Take 1 tablet by mouth once daily. Take on empty stomach. For thyroid. allopurinol (ZYLOPRIM) 100 mg tablet Take 1 tablet by mouth once daily. ibrutinib (IMBRUVICA) 140 mg capsule Take 2 capsules (280mg) by mouth once daily with a glass of water pantoprazole DR (PROTONIX) 40 mg tablet Take 1 tablet by mouth twice daily. acetaminophen (TYLENOL ARTHRITIS ORAL) Take 1 tablet by mouth twice daily as needed. cetirizine (ZYRTEC) 10 mg tablet Take 10 mg by mouth once daily. PRN OTC PRODUCT Take 1 capsule by mouth once daily. Plexus nerve Oxyquinoline-Na Lauryl Sulfate (TRIMO-SCHUSTER JELLY) 0.025-0.01 % gel Use 1 Inch vaginally two times a week. No current facility-administered medications for this visit. FAMILY HISTORY Problem Relation Age of Onset Hypertension Mother Stroke Mother other (DIVERTICULITIS) Mother Heart Father Hypertension Father Colon Cancer Sister age 48-50 Diabetes Maternal Grandmother Thyroid Sister X-2 Thyroid Child 2 Daughters Asthma No Family History Allergies No Family History Social History Tobacco Use Smoking status: Former Types: Cigarettes Smokeless tobacco: Never Tobacco comments: None since age 20s. No smoking in childhood home. Spouse of 56 years stopped smoking 1974. Vaping Use Vaping Use: Never used Substance Use Topics Alcohol use: No Drug use: No EXAM: BP 150/82 Pulse (!) 54 Resp 16 SpO2 96% PHYSICAL EXAM: General Appearance: Well appearing, alert, in no acute distress, well-hydrated, well nourished.. Skin: Skin color, texture, turgor normal, no suspicious rashes or lesions. Head: Normocephalic, no masses, lesions, tenderness or abnormalities. Eyes: Anicteric sclera. Pupils are equally round and reactive to light. Extraocular movements are intact. . Ears: External ears normal, canals clear. Normal TMs bilaterally. Oropharynx: Lips, mucosa, and tongue normal, teeth and gums normal, oropharynx normal. Neck: Supple, no adenopathy; thyroid symmetric, normal size, no bruits. Lungs: Lungs clear to auscultation. No wheezing, rhonchi, rales.. Heart: RRR without murmur, gallop, or rubs. No ectopy. Extremities: No deformities, edema, skin discoloration, clubbing or cyanosis. Good capillary refill. Neurologic: Gait normal. ASSESSMENT/PLAN: 1. Mixed anxiety depressive disorder - ICD9: 300.4, ICD10: F41.8 (primary diagnosis) Reports doing well on current dose. Continue without change. - ESCITALOPRAM 10 MG TABLET 2. Viral URI - ICD9: 465.9, ICD10: J06.9 - Discussed viral etiology and rationale for treatment. - Symptomatic treatment with prn analgesia - Supportive care with fluids and rest - declined any viral testing in the office today. Encouraged tylenol prn. Coricidin HBP as directed for congestion. Saline nasal spray. Notify provider if no better/worsening. Discussed treatment plan and patient voices understanding. Patient's questions answered appropriately. Medications and potential side effects were discussed and patient voices understanding. Return to the office as scheduled or as needed for worsening/no improvement. Jane Baig APRN.EDITA documented in this encounter [facility] 04-01-2023 History of Present illness Narrative [facility] Discontinuation Assessment: Disease group: Oral Oncology/Hematology Medication: IMBRUVICA ORAL Discontinue reason: Patient assistance program enrollment Bre Roy documented in this encounter [facility] 01-07-2023 Miscellaneous Notes Contacted pharmacy and patient picked up last week. Kandi Golden MA Call to pt. Pt states that her bottle at home is from August. Notified her that a new Rx was sent in for the increased dosage in September. Asked pt to contact the pharmacy to see if they have this Rx available. If any issues to update office. Will leave encounter open due to Rx having an end date of 01/01/23, Rx may be and pt may call back. April Thapa Ma Let patient know that the script for Lexapro that was sent to [facility] was for 90 days at 1.5 tabs a day and has a refill on it. Has she called [facility] to have them process the refill. Marcelo Gonzalez is calling Jane Baig APRN.CNP today with concern regarding medication escitalopram oxalate (LEXAPRO) 10 mg tablet. Patient states that the dosage had increased to 15 mg. Patient has been identified by name and birthdate. Duration of symptoms: N/A Person calling: self Call patient at: on cell [phone] (home) [phone] (cell) Please send medication to [email or web address]. Was an appointment scheduled: No Closing statement: Results or non-symptom based questions: Thank you for calling [facility], your call will be returned within the next business day. Sherry Car documented in this encounter [facility] 12-03-2022 History of Present illness Narrative [facility] Refill Assessment Medication(s): Imbruvica Patient's current medication list and adherence status to current therapy were reviewed by Specialty Pharmacy clinical pharmacist to identify any new drug interactions or non-compliance to therapy. Therapy continues to be appropriate for disease, patient response, and medical condition. Verification of therapeutic benefit and effectiveness with current therapy was completed. Adverse events, barriers in adherence, and side effects were assessed and addressed if applicable. Will proceed with refill with no changes in therapy - patient progressing towards achieving therapeutic goals based on medication-specific laboratory parameters, disease state markers and outcomes. 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 Patient confirmed: Yes Med/dose confirmed: Yes Supplies needed: No supplies needed Missed doses: No Estimated days supply on hand: 7 Copay amount: 0 Delivery method: FedEx Signature required: Required (, Medicaid, patient preference) Delivery address: [address] [place] [address], [address], put in screen door, [facility] [id number] Delivery date: 12/07/22 Questions or concerns for the pharmacist?: No [facility] Visit Assessment - Hematology/Oncology: Assessment to use: Refill Vaccination Assessment: Date of influenza vaccination reminder: 11/08/2022 Date of most recent vaccination assessment: 11/08/2022 Treatment Plan Information: Treatment Plan Information: 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 06/29/21 DR 280mg daily Admin/Storage: Take with glass of water at same time each day, avoid grapefruit/[place] oranges A/E: Cardiovascular effects,GI (diarrhea, constipation, abdominal pain, decreased appettite, dyspepsia, N/V, stomatitis), HTN, TLS, rash, anemia, neutropenia, thrombocytopenia, bruising, petechia, arthralgia, asthenia, muscle spasm, musculoskeetal pain Pt is on allopurinol D/I: Category C with lexapro-imbruvica may enhance antiplatelet effects of lexapro Lab: blood counts monthly or as clinically necessary renal and hepatic function uric acid levels as clinically necessary monitor blood pressure monitor for sign/symptoms of bleeding, infections, progressive multifocal encephalopathy, tumor lysis syndrome, second primary malignancies; signs/symptoms of cardiac arrhythmias and/or heart failure; ECG prior to initiation (patients with cardiac risk factors or history of cardiac arrhythmias) and during therapy if clinically indicated Tanvi Pollard (Line Tester) documented in this encounter [facility] 11-06-2022 History of Present illness Narrative 77 year old female with c/o 1 month follow up for right middle ear effusion Says she's doing fine. Hearing has improved. No pain. Lymph node has resolved on right. Hypothyroidism Current medication: Levothyroxine 125 mcg daily 1 hour AC Taking as directed on an empty stomach? Yes. Thyroid pain: No. Mass effect: No. Change in energy level/ fatigue? At times. Sleep disturbance ?No. Temperature Intolerance: cold No, hot No. Change in bowel habits? No. If yes: Weight changes?No. Change in hair or skin? No. If yes: Other symptoms: none Last 2 Encounter Wt Readings: Date: Wt: 11/06/2022 74.4 kg (164 lb) 10/03/2022 74.4 kg (164 lb) Last thyroid labs: TSH Date Value 10/10/2022 2.470 mIU/L 11/23/2021 3.020 mIU/L 08/01/2020 4.110 uU/mL 12/23/2019 4.480 uU/mL ) Thyroid labs were not completed. Component Latest Ref Rng & Units 10/05/2022 11/02/2022 WBC 3.70 - 11.00 k/uL 7.84 8.25 RBC 3.90 - 5.20 m/uL 3.71 (L) 3.76 (L) Hemoglobin 11.5 - 15.5 g/dL 10.9 (L) 11.3 (L) Hematocrit 36.0 - 46.0 % 33.3 (L) 34.8 (L) MCV 80.0 - 100.0 fL 89.8 92.6 MCH 26.0 - 34.0 pg 29.4 30.1 MCHC 30.5 - 36.0 g/dL 32.7 32.5 RDW-CV 11.5 - 15.0 % 16.0 (H) 14.7 Platelet Count 150 - 400 k/uL 332 326 MPV 9.0 - 12.7 fL 10.2 10.2 Neut% % 56.4 62.6 Abs Neut (ANC) 1.45 - 7.50 k/uL 4.43 5.16 Lymph% % 25.3 22.4 Abs Lymph 1.00 - 4.00 k/uL 1.98 1.85 [place]% % 13.9 11.6 Abs [place] <0.87 k/uL 1.09 (H) 0.96 (H) Eosin% % 2.2 1.2 Abs Eosin <0.46 k/uL 0.17 0.10 Baso% % 1.8 1.7 Abs Baso <0.11 k/uL 0.14 (H) 0.14 (H) Immature Gran % % 0.4 0.5 IMMATURE GRANS (ABS) <0.10 k/uL 0.03 0.04 NRBC /100 WBC 0.0 0.0 Absolute nRBC <0.01 k/uL <0.01 <0.01 DTYPE Auto Auto Protein, Total 6.3 - 8.0 g/dL 6.6 6.9 Albumin 3.9 - 4.9 g/dL 4.1 4.4 Calcium 8.5 - 10.2 mg/dL 9.1 8.9 Bilirubin, Total 0.2 - 1.3 mg/dL 0.3 0.3 Alkaline Phosphatase 34 - 123 U/L 95 104 AST 13 - 35 U/L 18 16 ALT 7 - 38 U/L 11 11 Glucose 74 - 99 mg/dL 111 (H) 78 BUN 7 - 21 mg/dL 19 18 Creatinine 0.58 - 0.96 mg/dL 1.11 (H) 1.19 (H) Sodium 136 - 144 mmol/L 134 (L) 133 (L) Potassium 3.7 - 5.1 mmol/L 3.8 3.8 Chloride 97 - 105 mmol/L 98 98 CO2 22 - 30 mmol/L 24 26 Anion Gap 9 - 18 mmol/L 12 9 eGFR >=60 mL/min/1.73m 51 (L) 47 (L) HISTORIES FAMILY HISTORY Problem Relation Age of Onset Hypertension Mother Stroke Mother other (DIVERTICULITIS) Mother Heart Father Hypertension Father Colon Cancer Sister age 48-50 Diabetes Maternal Grandmother Thyroid Sister X-2 Thyroid Child 2 Daughters Asthma No Family History Allergies No Family History PAST MEDICAL HISTORY Diagnosis Date Allergic rhinitis due to animal hair and dander + testing dander, dust, outside. Cristofer Alcantara ENT. Arthritis of both knees 03/04/2012 CKD (chronic kidney disease), stage III (HCC) Degeneration of intervertebral disc, site unspecified Degenerative arthritis of hip 03/04/2012 Diverticulosis of colon (without mention of hemorrhage) Endometriosis Family history of malignant neoplasm of gastrointestinal tract Hyperlipidemia Hypertension Internal hemorrhoids without mention of complication Other specified gastritis Unspecified hypothyroidism PAST SURGICAL HISTORY Procedure Laterality Date ARTHRP ACETBLR/PROX FEM PROSTC AGRFT/ALGRFT 2012 Left Hip ARTHRP ACETBLR/PROX FEM PROSTC AGRFT/ALGRFT Right 01/21/2017 Dr. Reid COLONOSCOPY FLX DX W/COLLJ SPEC WHEN PFRMD 12/16/08 DILATION & CURETTAGE DX&/THER NONOBSTETRIC 1970's multiple LAMINECTOMY W/O FFD > 2 VERT SEG LUMBAR 2009 titanium chris PAST SURGICAL HISTORY OF 2001 FOOT SURGERY PAST SURGICAL HISTORY OF Jan 2004 Dr. Mclean - Back Surgery-upper back - metal rods and cadaver bone TOTAL ABDOMINAL HYSTERECT W/WO RMVL TUBE OVARY 1986 Hysterectomy, ANDREW/BSO Social History Tobacco Use Smoking status: Former Types: Cigarettes Smokeless tobacco: Never Tobacco comments: None since age 20s. No smoking in childhood home. Spouse of 56 years stopped smoking 1974. Vaping Use Vaping Use: Never used Substance Use Topics Alcohol use: No Drug use: No ACTIVE PROBLEM LIST Hypothyroidism Backache, Unspecified Essential Hypertension, Benign Hyperlipidemia Gerd (Gastroesophageal Reflux Disease) Lumbar Disc Prolapse With Compression Radiculopathy Vitamin D Deficiency Viral Exanthem Other Specified Erythematous Condition(145.89) Pruritus Xerosis Cutis Pityriasis rosea: atypical Arthritis of Both Knees Degenerative Arthritis of Hip Pain in Joint, Pelvic Region and Thigh S/P Hip Replacement TMJ Dysfunction Mixed Anxiety Depressive Disorder Allergic Rhinitis Due to Animal Hair and Dander Obesity, Class I, Bmi 30-34.9 Chronic Pain of Left Knee Primary Osteoarthritis of Left Knee Rex (Acute Kidney Injury) (Hcc) Cll (Chronic Lymphocytic Leukemia) (Hcc) Ckd (Chronic Kidney Disease), Stage Iii ([facility]) Seborrheic Keratoses Immunocompromised State (Hcc) Rheumatoid Arthritis, Involving Unspecified Site, Unspecified Whether Rheumatoid Factor Present ([facility]) Current Outpatient Medications Medication Sig Dispense Refill pantoprazole DR (PROTONIX) 40 mg tablet Take 1 tablet by mouth twice daily. 180 tablet 3 levothyroxine (LEVOXYL) 125 mcg tablet Take 1 tablet by mouth once daily. Take on empty stomach. For thyroid. 30 tablet 2 Oxyquinoline-Na Lauryl Sulfate (TRIMO-SCHUSTER JELLY) 0.025-0.01 % gel Use 1 Inch vaginally two times a week. 113.4 g 1 escitalopram oxalate (LEXAPRO) 10 mg tablet Take 1.5 tablets by mouth once daily. 135 tablet 1 ibrutinib (IMBRUVICA) 140 mg capsule Take 2 capsules (280mg) by mouth once daily with a glass of water 60 capsule 3 losartan (COZAAR) 100 mg tablet take 1 tablet by mouth once daily 90 tablet 3 hydroCHLOROthiazide (HYDRODIURIL, ESIDRIX) 25 mg tablet Take 1 tablet by mouth once daily. 90 tablet 3 allopurinol (ZYLOPRIM) 100 mg tablet take 1 tablet by mouth once daily 90 tablet 3 acetaminophen (TYLENOL ARTHRITIS ORAL) Take 1 tablet by mouth twice daily as needed. cetirizine (ZYRTEC) 10 mg tablet Take 10 mg by mouth once daily. PRN OTC PRODUCT Take 1 capsule by mouth once daily. Plexus nerve No current facility-administered medications for this visit. DTAP,TDAP,TD(1 - Tdap) Never done COVID-19 VACCINE(4 - Medalogix risk series) due on 12/16/2020 BP CONTROLLED (<130/80) due on 12/13/2021 ADVANCE DIRECTIVE DISCUSSION Never done INFLUENZA(1) due on 10/26/2022 EXAM: BP 130/76 Pulse 64 Resp 16 Wt 74.4 kg (164 lb) SpO2 97% BMI 32.20 kg/m Pleasant overweight adult woman in no acute distress. Alert and oriented all spheres. Normal affect and cognition. Speech normal. No deficits to learning or comprehension. Skin warm, dry, pink to lips and nailbeds. Normal turgor. Respirations regular and unlabored. HEENT: NCAT. No scleral icterus or conjunctival injection. TM's clear. Nose and oropharynx free from injection or lesion. Oral membranes moist and pink. No cervical lymph nodes. Thyroid non-tender, no masses, or enlargement. Carotids pulses 2+/4+ without bruits. No JVD with HOB at 30 degrees. Extrem: no clubbing or cyanosis. Edema: none. Extremities are warm and pink with prompt capillary refill. ASSESSMENT/PLAN: 1. Encounter for immunization - ICD9: V03.89, ICD10: Z23 (primary diagnosis) - INFLUENZA VACCINE, PRSV FREE, AGE 65+ YR, HIGH DOSE, QUADRIVALENT (FLUZONE HIGH-DOSE) 2. Fluid level behind tympanic membrane of right ear - ICD9: 381.4, ICD10: H65.91 Resolved. 3. 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 Has future labs to complete. Ang Webb PA-C documented in this encounter [facility] 11-06-2022 History of Present illness Narrative [facility] Assessment Medication(s): Imbruvica Patient's current medication list and adherence status to current therapy were reviewed by Specialty Pharmacy clinical pharmacist to identify any new drug interactions or non-compliance to therapy. Therapy continues to be appropriate for disease, patient response, and medical condition. Verification of therapeutic benefit and effectiveness with current therapy was completed. Adverse events, barriers in adherence, and side effects were assessed and addressed if applicable. Will proceed with refill with no changes in therapy - patient progressing towards achieving therapeutic goals based on medication-specific laboratory parameters, disease state markers and outcomes. 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 Patient confirmed: Yes Med/dose confirmed: Yes Supplies needed: No supplies needed Missed doses: No Estimated days supply on hand: 6 Copay amount: 0 Delivery method: FedEx Signature required: No Delivery address: [address] [place] [address], [address] - Put in screen door, [facility] [id number] Delivery date: 11/09/22 Questions or concerns for the pharmacist?: No [facility] Visit Assessment - Hematology/Oncology: Assessment to use: Refill Vaccination Assessment: Date of influenza vaccination reminder: 11/02/2021 Date of most recent vaccination assessment: 11/02/2021 Treatment Plan Information: Treatment Plan Information: 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 06/29/21 DR 280mg daily Admin/Storage: Take with glass of water at same time each day, avoid grapefruit/[place] oranges A/E: Cardiovascular effects,GI (diarrhea, constipation, abdominal pain, decreased appettite, dyspepsia, N/V, stomatitis), HTN, TLS, rash, anemia, neutropenia, thrombocytopenia, bruising, petechia, arthralgia, asthenia, muscle spasm, musculoskeetal pain Pt is on allopurinol D/I: Category C with lexapro-imbruvica may enhance antiplatelet effects of lexapro Lab: blood counts monthly or as clinically necessary renal and hepatic function uric acid levels as clinically necessary monitor blood pressure monitor for sign/symptoms of bleeding, infections, progressive multifocal encephalopathy, tumor lysis syndrome, second primary malignancies; signs/symptoms of cardiac arrhythmias and/or heart failure; ECG prior to initiation (patients with cardiac risk factors or history of cardiac arrhythmias) and during therapy if clinically indicated Tanvi Pollard (Line Tester) documented in this encounter [facility] 10-17-2022 Miscellaneous Notes Patient has been identified by name and date of : Yes Requested Prescriptions Pending Prescriptions Disp Refills pantoprazole DR (PROTONIX) 40 mg tablet 180 tablet 3 Sig: Take 1 tablet by mouth twice daily. KIAN-10/08/22 Labs-10/10/22 NOV-11/06/22 RX INSTRUCTIONS: Patient is requesting this is sent today. Patient aware RX will be sent to pharmacy. No need to notify patient. Mini Nicolas Pss documented in this encounter [facility] 10-08-2022 Instructions Jane Baig APRN.EDITA - 10/08/2022 5:42 PM EDT Start the zyrtec. Let me know if no better or any worsening. documented in this encounter [facility] 10-08-2022 History of Present illness Narrative This is a 77 year old female who presents today with: Patient presents with: Ear Pain: R ear pain x 2 days HISTORY OF PRESENT ILLNESS: Marcelo Gonzalez is a 77 year old female. Patient presents with: Ear Pain: R ear pain x 2 days Pt initially came in because she thought she was having thyroid checked. Apparently labs were not collected with last draw. She is aware that she needs to return to lab for this, but currently closed in the office. She will return for this. She has an order for lipids -- she does not want to have cholesterol checked. Removed per patient request. Pt presents for right ear pain. Concerned the she may have a build-up. Uncomfortable. It feels funny. Hearing okay. Nothing coming out of it. She did have a sinus infection at the end of August -- finished antibiotics. PAST MEDICAL HISTORY: PAST MEDICAL HISTORY Diagnosis Date Allergic rhinitis due to animal hair and dander + testing dander, dust, outside. [facility]. Arthritis of both knees 03/04/2012 CKD (chronic kidney disease), stage III (HCC) Degeneration of intervertebral disc, site unspecified Degenerative arthritis of hip 03/04/2012 Diverticulosis of colon (without mention of hemorrhage) Endometriosis Family history of malignant neoplasm of gastrointestinal tract Hyperlipidemia Hypertension Internal hemorrhoids without mention of complication Other specified gastritis Unspecified hypothyroidism PAST SURGICAL HISTORY Procedure Laterality Date ARTHRP ACETBLR/PROX FEM PROSTC AGRFT/ALGRFT 2012 Left Hip ARTHRP ACETBLR/PROX FEM PROSTC AGRFT/ALGRFT Right 01/21/2017 Dr. Reid COLONOSCOPY FLX DX W/COLLJ SPEC WHEN PFRMD 12/16/08 DILATION & CURETTAGE DX&/THER NONOBSTETRIC 1969' multiple LAMINECTOMY W/O FFD > 2 VERT SEG LUMBAR 2009 titanium chris PAST SURGICAL HISTORY OF 2001 FOOT SURGERY PAST SURGICAL HISTORY OF Jan 2004 Dr. Mclean - Back Surgery-upper back - metal rods and cadaver bone TOTAL ABDOMINAL HYSTERECT W/WO RMVL TUBE OVARY 1986 Hysterectomy, ANDREW/BSO ALLERGIES Lyrica [Pregabalin], Penicillins, Amoxicillin, Codeine, Doxycycline Hcl, Fentanyl, Keflex [Cephalexin], Latex, Lisinopril, Meloxicam, Mirapex [Pramipexole], Oxycodone, Sulfa (Sulfonamide Antibiotics), Trazodone (Bulk), Ultram [Tramadol Hcl], Versed [Midazolam Hcl], and Zetia [Ezetimibe] MEDICATIONS Current Outpatient Medications Medication Sig Oxyquinoline-Na Lauryl Sulfate (TRIMO-SCHUSTER JELLY) 0.025-0.01 % gel Use 1 Inch vaginally two times a week. escitalopram oxalate (LEXAPRO) 10 mg tablet Take 1.5 tablets by mouth once daily. ibrutinib (IMBRUVICA) 140 mg capsule Take 2 capsules (280mg) by mouth once daily. pantoprazole DR (PROTONIX) 40 mg tablet Take 1 tablet by mouth twice daily. losartan (COZAAR) 100 mg tablet take 1 tablet by mouth once daily hydroCHLOROthiazide (HYDRODIURIL, ESIDRIX) 25 mg tablet Take 1 tablet by mouth once daily. allopurinol (ZYLOPRIM) 100 mg tablet take 1 tablet by mouth once daily levothyroxine (SYNTHROID) 137 mcg tablet Please take 137 mcg tablet daily 6 days a week, 1/2 tablet on seventh day. acetaminophen (TYLENOL ARTHRITIS ORAL) Take 1 tablet by mouth twice daily as needed. cetirizine (ZYRTEC) 10 mg tablet Take 10 mg by mouth once daily. PRN OTC PRODUCT Take 1 capsule by mouth once daily. Plexus nerve No current facility-administered medications for this visit. FAMILY HISTORY Problem Relation Age of Onset Hypertension Mother Stroke Mother other (DIVERTICULITIS) Mother Heart Father Hypertension Father Colon Cancer Sister age 48-50 Diabetes Maternal Grandmother Thyroid Sister X-2 Thyroid Child 2 Daughters Asthma No Family History Allergies No Family History Social History Tobacco Use Smoking status: Former Types: Cigarettes Smokeless tobacco: Never Tobacco comments: None since age 20s. No smoking in childhood home. Spouse of 56 years stopped smoking 1974. Vaping Use Vaping Use: Never used Substance Use Topics Alcohol use: No Drug use: No EXAM: BP 138/82 Pulse (!) 51 Resp 16 SpO2 92% PHYSICAL EXAM: General Appearance: Well appearing, alert, in no acute distress, well-hydrated, well nourished.. Skin: Skin color, texture, turgor normal, no suspicious rashes or lesions. Head: Normocephalic, no masses, lesions, tenderness or abnormalities. Eyes: Anicteric sclera. Pupils are equally round and reactive to light. Extraocular movements are intact. . Ears: External ears normal, canals clear, Positive findings: R TM: air/fluid interface visualized, L TM: normal. Neck: Supple, no adenopathy Lungs: Lungs clear to auscultation. No wheezing, rhonchi, rales.. Heart: RRR without murmur, gallop, or rubs. No ectopy. Neurologic: Gait normal w/ cane. ASSESSMENT/PLAN: 1. ELLIS (middle ear effusion), right - ICD9: 381.4, ICD10: H65.91 - likely from recent sinus infection or allergies. Encouraged to take zyrtec regularly. Discussed flonase -- declines script at this time. Continue to monitor - if no improvement or any worsening -- notify provider. Discussed treatment plan and patient voices understanding. Patient's questions answered appropriately. Medications and potential side effects were discussed and patient voices understanding. Return to the office as scheduled or as needed for worsening/no improvement. Jane aBig APRN.[employer] W[employer]ER documented in this encounter [facility] 10-06-2022 Miscellaneous Notes Left detailed message with results/provider response on voicemail. Pt only to return call to office with any questions or concerns. Marcio Padron LPN Can please let patient know that I received her lab results. Her blood count went down just a little bit. Her kidney function is stable. Her urine culture did not show an infection. Unfortunately, all of her labwork was not completed (thyroid/cholesterol). Can she return to have this done? documented in this encounter [facility] 10-05-2022 Miscellaneous Notes It looks like this has been coming from hand molder and caster. (We did not discuss this at her appt). Will forward to SERVICES HOST provider. Jane Baig APRN.EDITA Patient calls to ask if prescription for Pessary Jelly has been sent to [facility] as discussed at appointment. OV notes did not specify request. Pended for provider to review. Donna Nix RN documented in this encounter [facility] 10-03-2022 Instructions Jane Baig APRN.CNP - 10/03/2022 3:27 PM EDT Increase the lexapro to 15 mg daily. ( 1 1/2 tablets). Get our blood work with the next lab draw. Recheck in 1 month, sooner if needed. documented in this encounter [facility] 10-03-2022 History of Present illness Narrative This is a 77 year old female who presents today with: Patient presents with: Yearly Exam HISTORY OF PRESENT ILLNESS: Marcelo Gonzalez is a 77 year old female. Patient presents with: Yearly Exam Pt presents today for medicare wellness, but has several concerns. Refers mood has been bad. Refers it had been bad ever since being put on the imbruvica 2 years ago. Refers that they had to decrease the dose because of fatigue. States that she is tired all the time. States I'm a grouch. States she is depressed and gets depressed easily. Feels like the lexapro needs to be increased. She hasn't taken anything else besides the lexapro. Has never had any problems with the lexapro. States that she sleeps like a log. Appetite has been good. She had a knee replacement earlier this year. She has fallen twice since that time. Last time was last month. Both times were mechanical falls. Continues to ambulate with cane. REVIEW OF SYSTEMS GENERAL: No weight loss, malaise or fevers/chills. + fatigue. HEENT: Occ headaches. NECK: Negative for lumps, goiter, pain and significant neck swelling RESPIRATORY: Negative for cough, hemoptysis, wheezing, dyspnea or shortness of breath CARDIOVASCULAR: Negative for chest pain, leg swelling, orthopnea, or palpitations GI: No nausea, vomiting, or diarrhea. Occ constipation. No hematochezia/melena. No heartburn or reflux symptoms. : No history of dysuria, frequency or incontinence MUSCULOSKELETAL: left knee continues to be sore at times, but reports much better since surgery. SKIN: Negative for lesions, rash, and itching ENDOCRINE: Negative for cold or heat intolerance, polyuria, polydipsia and goiter NEURO: No history of syncope, paralysis, seizures or tremors PAST MEDICAL HISTORY: PAST MEDICAL HISTORY Diagnosis Date Allergic rhinitis due to animal hair and dander + testing dander, dust, outside. [facility]. Arthritis of both knees 03/04/2012 CKD (chronic kidney disease), stage III (HCC) Degeneration of intervertebral disc, site unspecified Degenerative arthritis of hip 03/04/2012 Diverticulosis of colon (without mention of hemorrhage) Endometriosis Family history of malignant neoplasm of gastrointestinal tract Hyperlipidemia Hypertension Internal hemorrhoids without mention of complication Other specified gastritis Unspecified hypothyroidism PAST SURGICAL HISTORY Procedure Laterality Date ARTHRP ACETBLR/PROX FEM PROSTC AGRFT/ALGRFT 2012 Left Hip ARTHRP ACETBLR/PROX FEM PROSTC AGRFT/ALGRFT Right 01/21/2017 Dr. Reid COLONOSCOPY FLX DX W/COLLJ SPEC WHEN PFRMD 12/16/08 DILATION & CURETTAGE DX&/THER NONOBSTETRIC 1970' multiple LAMINECTOMY W/O FFD > 2 VERT SEG LUMBAR 2009 titanium chris PAST SURGICAL HISTORY OF 2001 FOOT SURGERY PAST SURGICAL HISTORY OF Jan 2004 Dr. Mclean - Back Surgery-upper back - metal rods and cadaver bone TOTAL ABDOMINAL HYSTERECT W/WO RMVL TUBE OVARY 1986 Hysterectomy, ANDREW/BSO ALLERGIES Lyrica [Pregabalin], Penicillins, Amoxicillin, Codeine, Doxycycline Hcl, Fentanyl, Keflex [Cephalexin], Latex, Lisinopril, Meloxicam, Mirapex [Pramipexole], Oxycodone, Sulfa (Sulfonamide Antibiotics), Trazodone (Bulk), Ultram [Tramadol Hcl], Versed [Midazolam Hcl], and Zetia [Ezetimibe] MEDICATIONS Current Outpatient Medications Medication Sig ibrutinib (IMBRUVICA) 140 mg capsule Take 2 capsules (280mg) by mouth once daily. pantoprazole DR (PROTONIX) 40 mg tablet Take 1 tablet by mouth twice daily. Oxyquinoline-Na Lauryl Sulfate (TRIMO-SCHUSTER JELLY) 0.025-0.01 % gel Use 1 Inch vaginally two times a week. losartan (COZAAR) 100 mg tablet take 1 tablet by mouth once daily hydroCHLOROthiazide (HYDRODIURIL, ESIDRIX) 25 mg tablet Take 1 tablet by mouth once daily. allopurinol (ZYLOPRIM) 100 mg tablet take 1 tablet by mouth once daily escitalopram oxalate (LEXAPRO) 10 mg tablet take 1 tablet by mouth once daily levothyroxine (SYNTHROID) 137 mcg tablet Please take 137 mcg tablet daily 6 days a week, 1/2 tablet on seventh day. acetaminophen (TYLENOL ARTHRITIS ORAL) Take 1 tablet by mouth twice daily as needed. cetirizine (ZYRTEC) 10 mg tablet Take 10 mg by mouth once daily. PRN OTC PRODUCT Take 1 capsule by mouth once daily. Plexus nerve No current facility-administered medications for this visit. FAMILY HISTORY Problem Relation Age of Onset Hypertension Mother Stroke Mother other (DIVERTICULITIS) Mother Heart Father Hypertension Father Colon Cancer Sister age 48-50 Diabetes Maternal Grandmother Thyroid Sister X-2 Thyroid Child 2 Daughters Asthma No Family History Allergies No Family History Social History Tobacco Use Smoking status: Former Types: Cigarettes Smokeless tobacco: Never Tobacco comments: None since age 20s. No smoking in childhood home. Spouse of 56 years stopped smoking 1974. Vaping Use Vaping Use: Never used Substance Use Topics Alcohol use: No Drug use: No EXAM: BP 142/80 Pulse 63 Resp 16 Wt 74.4 kg (164 lb) SpO2 93% BMI 32.20 kg/m 122/76 PHYSICAL EXAM: General Appearance: Well appearing, alert, in no acute distress, well-hydrated, well nourished.. Skin: Skin color, texture, turgor normal, no suspicious rashes or lesions. Head: Normocephalic, no masses, lesions, tenderness or abnormalities. Eyes: Anicteric sclera. Extraocular movements are intact. Neck: Supple, no adenopathy; thyroid symmetric, normal size, no bruits. Lungs: Lungs clear to auscultation. No wheezing, rhonchi, rales.. Heart: RRR without murmur, gallop, or rubs. No ectopy. Extremities: No deformities, edema, skin discoloration, clubbing or cyanosis. Good capillary refill. . Neurologic: Gait normal. ASSESSMENT/PLAN: 1. Essential hypertension, benign - ICD9: 401.1, ICD10: I10 (primary diagnosis) Stable. - Continue current medications - Recommend home blood pressure monitoring, to bring results to next visit - Encouraged sodium restriction, DASH or Mediterranean diet - Recommend regular aerobic exercise - CBC + DIFF - COMP METABOLIC PANEL 2. 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 - TSH BLD - T4 FREE/FREE THYROX 3. Anemia, unspecified type - ICD9: 285.9, ICD10: D64.9 - CBC + DIFF 4. Fatigue, unspecified type - ICD9: 780.79, ICD10: R53.83 - UA DIP, URINE (POC) - URINE CULTURE 5. Gastroesophageal reflux disease, unspecified whether esophagitis present - ICD9: 530.81, ICD10: K21.9 - MAGNESIUM BLD 6. Mixed anxiety depressive disorder - ICD9: 300.4, ICD10: F41.8 Will increase the lexapro to 15 mg daily. If no improvement/worsening, may consider changing to a different agent. - ESCITALOPRAM 10 MG TABLET 7. Hyperlipidemia, unspecified hyperlipidemia type - ICD9: 272.4, ICD10: E78.5 - LIPID PANEL, NONFASTING Discussed treatment plan and patient voices understanding. Patient's questions answered appropriately. Medications and potential side effects were discussed and patient voices understanding. Return to the office as scheduled or as needed for worsening/no improvement. Jane Baig APRN.[employer] W[employer]ER documented in this encounter [facility] 09-20-2022 Miscellaneous Notes Pt called in and would like AVS printed and mailed to her. Printed and mailed to home address. documented in this encounter [facility] 09-10-2022 History of Present illness Narrative [facility] Refill Assessment Medication(s): Imbruvica Patient's current medication list and adherence status to current therapy were reviewed by Specialty Pharmacy clinical pharmacist to identify any new drug interactions or non-compliance to therapy. Therapy continues to be appropriate for disease, patient response, and medical condition. Verification of therapeutic benefit and effectiveness with current therapy was completed. Adverse events, barriers in adherence, and side effects were assessed and addressed if applicable. Will proceed with refill with no changes in therapy - patient progressing towards achieving therapeutic goals based on medication-specific laboratory parameters, disease state markers and outcomes. 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 Patient confirmed: Yes Med/dose confirmed: Yes Missed doses: No Estimated days supply on hand: 4 Next cycle/dose due: 09/15/22 Copay amount: 0 Delivery method: FedEx Signature required: Waived on patient request Delivery address: [address] [place] [address], [place] [address] Delivery date: 09/14/22 Questions or concerns for the pharmacist?: No [facility] Visit Assessment - Hematology/Oncology: Assessment to use: Refill Vaccination Assessment: Date of influenza vaccination reminder: 11/02/2021 Date of most recent vaccination assessment: 11/02/2021 Treatment Plan Information: Treatment Plan Information: 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 06/29/21 DR 280mg daily Admin/Storage: Take with glass of water at same time each day, avoid grapefruit/[place] oranges A/E: Cardiovascular effects,GI (diarrhea, constipation, abdominal pain, decreased appettite, dyspepsia, N/V, stomatitis), HTN, TLS, rash, anemia, neutropenia, thrombocytopenia, bruising, petechia, arthralgia, asthenia, muscle spasm, musculoskeetal pain Pt is on allopurinol D/I: Category C with lexapro-imbruvica may enhance antiplatelet effects of lexapro Lab: blood counts monthly or as clinically necessary renal and hepatic function uric acid levels as clinically necessary monitor blood pressure monitor for sign/symptoms of bleeding, infections, progressive multifocal encephalopathy, tumor lysis syndrome, second primary malignancies; signs/symptoms of cardiac arrhythmias and/or heart failure; ECG prior to initiation (patients with cardiac risk factors or history of cardiac arrhythmias) and during therapy if clinically indicated Cathy Orourke ([employer]) documented in this encounter [facility] 09-07-2022 History of Present illness Narrative Chief Complaint Patient presents with: Established Patient HPI: Marcelo Gonzalez is a 76 year old female who presents here today for follow up CLL. Per Dr. Salas's previous note: H/o essential hypertension, hyperlipidemia, GERD, hypothyroidism, osteoarthritis of the knees, degenerative disease of the lumbar spine and possibly RA. Patient was noted to have bilateral axillary adenopathy on a screening mammogram done 06/20/2020. Multiple axillary nodes were noted in the right breast posterior depth upper region and multiple axillary nodes were observed in the left breast posterior depth upper region. Multiple enlarged lymph nodes were observed in the left axilla on US. They had thickened cortexes. There was one enlarged lymph node in the right axilla on ultrasound. And ultrasound core needle biopsy of one of the left axillary lymph nodes was performed on 07/14/2020. 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 Current therapy: Began Imbruvica 09/14/20. Pt. called in c/o fatigue on 06/29/21-imbruvica dose lowered to [address] Salas. S/p L total knee on May 21, [address] Reid. No new concerns today. Pt. here with her daughter. Appetite:Too good. Energy level:I don't have much. Denies fevers. Mouth:denies sores Resp:denies cough or sob at rest, jones long distances Cardiac:denies chest pain/palpitations GI:denies abd pain, n/v, moving bowels regularly-takes senna prn :denies dysuria/hematuria Extrem:denies pain Neuro:denies symptoms of neuropathy Skin:denies rashes Heme:denies bleeding The ROS is otherwise negative. Past medical history, appointments, medications, allergies reviewed. No changes. EXAM: BP 122/67 Pulse 60 Temp 36.6 C (97.9 F) (Temporal) Wt 73.5 kg (162 lb) SpO2 98% BMI 31.80 kg/m APPEARANCE Well appearing, alert, in no acute distress, well-hydrated, well nourished. HEART RRR with normal S1 and S2, no murmurs LUNG clear to auscultation LYMPH NODES No cervical lymphadenopathy, No supraclavicular lymphadenopathy, and No axillary lymphadenopathy. ABDOMEN bowel sounds normoactive, soft, non-tender EXTREMITIES No edema NEURO Awake, alert and oriented x 3, Normal gait, and No involuntary motions. SKIN Skin color, texture, turgor normal, no suspicious rashes or lesions LABS: Component Latest Ref Rng & Units 06/07/2022 06/21/2022 07/19/2022 08/16/2022 09/07/2022 WBC 3.70 - 11.00 k/uL 8.65 7.75 8.43 7.34 6.75 RBC 3.90 - 5.20 m/uL 2.89 (L) 3.43 (L) 3.74 (L) 3.96 4.01 Hemoglobin 11.5 - 15.5 g/dL 8.8 (L) 10.3 (L) 11.1 (L) 11.6 11.8 Hematocrit 36.0 - 46.0 % 27.4 (L) 31.3 (L) 34.3 (L) 36.6 35.6 (L) MCV 80.0 - 100.0 fL 94.8 91.3 91.7 92.4 88.8 MCH 26.0 - 34.0 pg 30.4 30.0 29.7 29.3 29.4 MCHC 30.5 - 36.0 g/dL 32.1 32.9 32.4 31.7 33.1 RDW-CV 11.5 - 15.0 % 13.9 14.1 14.6 15.5 (H) 16.0 (H) Platelet Count 150 - 400 k/uL 604 (H) 404 (H) 438 (H) 359 319 MPV 9.0 - 12.7 fL 8.5 (L) 8.3 (L) 9.5 10.1 10.2 Neut% % 62.1 63.8 60.2 59.0 56.3 Abs Neut (ANC) 1.45 - 7.50 k/uL 5.37 4.94 5.08 4.33 3.80 Lymph% % 22.1 19.7 25.4 22.5 25.2 Abs Lymph 1.00 - 4.00 k/uL 1.91 1.53 2.14 1.65 1.70 [place]% % 10.4 12.4 10.7 13.6 13.2 Abs [place] <0.87 k/uL 0.90 (H) 0.96 (H) 0.90 (H) 1.00 (H) 0.89 (H) Eosin% % 3.0 2.3 1.5 2.5 2.4 Abs Eosin <0.46 k/uL 0.26 0.18 0.13 0.18 0.16 Baso% % 1.7 1.4 1.7 2.0 2.2 Abs Baso <0.11 k/uL 0.15 (H) 0.11 (H) 0.14 (H) 0.15 (H) 0.15 (H) Immature Gran % % 0.7 0.4 0.5 0.4 0.7 IMMATURE GRANS (ABS) <0.10 k/uL 0.06 0.03 0.04 0.03 0.05 NRBC /100 WBC 0.0 0.0 0.0 0.0 0.0 Absolute nRBC <0.01 k/uL <0.01 <0.01 <0.01 <0.01 <0.01 DTYPE Auto Auto Auto Auto Auto Component Latest Ref Rng & Units 06/07/2022 07/19/2022 08/16/2022 09/07/2022 Protein, Total 6.3 - 8.0 g/dL 6.8 7.0 6.8 6.6 Albumin 3.9 - 4.9 g/dL 3.8 (L) 4.1 4.3 4.2 Calcium 8.5 - 10.2 mg/dL 9.3 9.5 9.1 9.4 Bilirubin, Total 0.2 - 1.3 mg/dL 0.4 0.2 0.2 0.2 Alkaline Phosphatase 34 - 123 U/L 113 105 100 102 AST 13 - 35 U/L 13 14 19 16 ALT 7 - 38 U/L 8 9 14 13 Glucose 74 - 99 mg/dL 77 84 87 83 BUN 7 - 21 mg/dL 18 11 15 20 Creatinine 0.58 - 0.96 mg/dL 1.13 (H) 1.10 (H) 1.09 (H) 1.13 (H) Sodium 136 - 144 mmol/L 131 (L) 133 (L) 136 137 Potassium 3.7 - 5.1 mmol/L 3.8 3.6 (L) 3.6 (L) 3.6 (L) Chloride 97 - 105 mmol/L 94 (L) 98 100 101 CO2 22 - 30 mmol/L 27 26 26 27 Anion Gap 9 - 18 mmol/L 10 9 10 9 eGFR >=60 mL/min/1.73m 51 (L) 52 (L) 53 (L) 51 (L) ASSESSMENT/PLAN: 1. CLL (chronic lymphocytic leukemia) (HCC) - ICD9: 204.10, ICD10: C91.10 - No new concerning findings on exam. - Tolerating lower dose of imbruvica better-2 capsules daily. Energy improved. - Reviewed CBC/CMP with pt. and family member. - Follow up with Cardiology/Ortho/PCP as scheduled. - Continue current dose of imbruvica. - CBC/CMP monthly. - Follow up in 3 months with CBC/CMP. - Pt. aware to call office with any questions/concerns. The patient indicates understanding of these issues and agrees with the plan. All documentation from previous visit of 06/07/22-Dr. Salas/myself was copied and pasted, documentation has been reviewed and edited as necessary for today's visit. Cristina Taylor APRN.EDITA documented in this encounter [facility] 06-29-2022 Discharge summary Note Date/Time June 29, 2022 12:04p [facility] Medical Records Department [address] [place] [address] Emergency Department Summary 06/29/22 MR#: [id number] Acct: [id number] Name: MARCELO GONZALEZ Rep #:[id number] : 1945 76 From: Anai Clark PCP: TARAS Frank Status:REG E R Location: ED HPI History of Present Illness Chief Complaint: Fall Informant: patient Narrative Narrative: Patient is a 76-year-old female with history of hypertension, hyperlipidemia, CKD 3, CLL and left TKA on 05/[address] Kody Reid. Patient tried to get out of bed today and had a mechanical fall. She states she is hardwood floors and was wearing socks and at her house slippers. This caused her to fall. She did does not think she hit her head. She cried out immediately. was inthe room as well. She complained of significant pain in her left leg. She has bruising over her left foot but states her entire leg from her hip to her foot hurts. She is a hard time localizing where her pain is otherwise. Denies any associated numbness or tingling. Is not on any blood thinners or aspirin. No other complaint at this time [facility] Medical History Cancer CKD (chronic kidney disease) stage 3, GFR 30-59 ml/min CLL (chronic lymphocytic leukemia) Depression Former smoker GERD (gastroesophageal reflux disease) History of chest pain History of syncope HTN (hypertension) Hypothyroidism Mixed hyperlipidemia Non-smoker Osteoporosis Primary osteoarthritis of right hip Rheumatoid arthritis Sinus bradycardia Home Medications allopurinol 100 mg tablet 100 mg PO DAILY 06/27/21 [History Last Taken 08/31/21] cetirizine 10 mg tablet 10 mg PO DAILY PRN ALLERGIES 06/27/21 [History Last Taken 08/30/21] escitalopram oxalate 10 mg tablet (Lexapro) 10 mg PO DAILY 06/27/21 [History Last Taken 08/31/21] hydrochlorothiazide 25 mg tablet 25 mg PO DAILY 06/27/21 [History Last Taken 08/31/21] ibrutinib 140 mg tablet 280 mg PO DAILY 06/28/21 [History Last Taken 08/31/21] levothyroxine 137 mcg tablet 137 mcg PO DAILY 06/28/21 [History Last Taken 08/31/21] losartan 100 mg tablet 100 mg PO DAILY 06/28/21 [History Last Taken 08/30/21] pantoprazole 40 mg tablet,delayed release 40 mg PO BID GERD 06/28/21 [History Last Taken 08/31/21] Plexus Nerve 2 cap PO/SL DAILY SUPPLEMENT 08/31/21 [History Last Taken 08/31/21] ondansetron 4 mg disintegrating tablet 4 mg PO Q8H PRN nausea and vomiting #14 tabs 11/07/21 [Rx Last Taken Unknown] cephalexin 500 mg capsule 500 mg PO Q12 #14 caps 11/08/21 [Rx Last Taken Unknown] oxycodone-acetaminophen 5 mg-325 mg tablet (Percocet) 1 tab PO Q6H PRN pain 3 days #12 tabs 06/29/22 [Rx Last Taken Unknown] Allergy/AdvReac Type Severity Reaction Status Date / Time codeine Allergy Unknown Rash Verified 06/29/22 11:33 fentanyl Allergy Unknown Rash Verified 06/29/22 11:33 meloxicam Allergy Unknown Rash Verified 06/29/22 11:33 midazolam [From Versed] Allergy Unknown Rash Verified 06/29/22 11:33 oxycodone Allergy Unknown Hives Verified 06/29/22 11:33 pramipexole [From Mirapex] Allergy Unknown Rash Verified 06/29/22 11:33 amoxicillin Allergy Rash Verified 06/29/22 11:33 Penicillins [PCN] Allergy Rash Verified 06/29/22 11:33 Sulfa (Sulfonamide Allergy Rash Verified 06/29/22 11:33 Antibiotics) tramadol [From Ultram] Allergy Other Verified 06/29/22 11:33 cephalexin [From Keflex] AdvReac Unknown Unknown Verified 06/29/22 11:33 doxycycline AdvReac Unknown GI Upset Verified 06/29/22 11:33 ezetimibe [From Zetia] AdvReac Unknown Unknown Verified 06/29/22 11:33 lisinopril AdvReac Unknown Cough Verified 06/29/22 11:33 pregabalin [From Lyrica] AdvReac Unknown Mental Verified 06/29/22 11:33 Status Change trazodone AdvReac Unknown Mental Verified 06/29/22 11:33 Status Change adhesive AdvReac Rash Verified 06/29/22 11:33 Family History Mother CVA (cerebral vascular accident) Hypertension Father Heart disease Hypertension Sister Cancer Colon Grandmother Diabetes Sister Thyroid disorder Surgical History History of foot surgery History of lumbar laminectomy History of total hysterectomy History of total replacement of both hip joints Previous back surgery Social History household members: none Smoking Status: Former smoker alcohol intake: never substance use type: does not use ROS ROS ED Constitutional Constitutional ED: Denies chills or fever(s) Eyes Eyes: Denies change in vision ENT ENT ED: Denies sore throat Cardiovascular Cardiovascular: Denies chest pain Respiratory/Chest Respiratory/Chest: Denies cough Gastrointestinal Gastrointestinal: Denies abdominal pain, nausea or vomiting Musculoskeletal Musculoskeletal: Reports arthralgias and other Details: Left leg pain pretty diffusely and most pronounced of the knee and ankle/foot Integumentary Reports other Details: Bruising to left foot Neurologic Neurologic: Denies headache(s), paresthesias or weakness Psychiatric Psychiatric: Reports anxiety Hematologic/Lymphatic Hematologic/Lymphatic: Reports easy bruising EXAM Physical Exam Const Vital Signs: 06/29/22 11:31 06/29/22 11:57 06/29/22 15:39 Temperature 96.9 F L Temperature Source Temporal Pulse Rate 83 69 Respiratory Rate 18 12 Respiratory Effort Normal Non-Labored Respiratory Pattern Normal Blood Pressure 118/75 116/71 Blood Pressure Mean 89 86 Pulse Ox 100 97 Oxygen Delivery Method Room Air Room Air Positive well nourished and well developed General Appearance ED: well developed and NAD HEENT Reports TM's clear atraumatic Nose: Negative for septum abnormal Tympanic Membrane ED: Yes TM's clear Eyes PERRL and EOMs intact bilaterally Neck full ROM General: Negative for tenderness Chest Wall inspection of chest normal and palpation of chest normal Resp normal respiratory effort and clear to auscultation bilaterally Cardio regular rhythm and no murmurs Rate: regular rate GI normal to inspection, nondistended, normoactive bowel sounds and non-tender Back/Spine normal to inspection and no thoracic nor lumbar tenderness General Back: Negative for CVA tenderness Extremity Extremity Narrative: Decreased range of motion of the LLE secondary to pain. No obvious trauma or deformity to the hip, knee, thigh or lower leg. Patient has tenderness palpation of the lateral aspect of the left knee, diffuse pain in the leg with logroll and tenderness palpation diffusely of the left ankle and foot with no pinpoint bony tenderness. Range of motion of the foot and ankle are preserved. Neuro oriented x3, moves all extremities, no focal motor deficits and no sensory deficits noted Psych mental status grossly normal and thought process normal Mood & Affect: anxious and tearful Skin Skin Narrative: Healing anterior left knee surgical incision. No signs of secondary infection. Scattered ecchymosis to the dorsum of the left foot and lateral left ankle MDM MDM MDM Narrative Medical decision making narrative: Patient is evaluated for left lower leg pain after mechanical fall this morning. She is neurovascularly intact. She has good distal pulses. No signs of compartment syndrome. Differential includes soft tissue contusion, ankle sprainor fracture, hip dislocation, hip fracture as well as periprosthetic fracture. Patient is medicated with IV morphine and Zofran. She has improvement of her symptoms with does require redose. Plain films of the hip, femur, knee, foot and ankle are obtained. They returned by myself as well as radiology. Patient does have some soft tissue swelling of the foot and ankle but no acute bony abnormalities or signs of dislocation. Patient is given oral oxycodone in the ER. She is able to ambulate with assistance. She is given an Randy wrap for her foot and then a walking boot per her request. I suspect she does have an associated ankle sprain. Patient be given a short prescription for Percocet for pain control over the weekend. She is counseled on return precautions and that if she cannot functionat home she will need to return for possible admission for placement. She is comfortable with this. She has a lot of assistive devices at home including a walker, lifting recliner and a bedside commode. Patient and agreeable with plan of care. Patient discharged home in stable condition. Patient states she did not hit her head and has no signs of head trauma. Has a normal neurologic exam. I do not think CT imaging of the head is indicated at this time. Radiography Diagnostic Testing: Clinical Impression(s) from Imaging Studies Femur X-Ray 06/29/22 11:56 IMPRESSION: No acute abnormality is seen. Electronically Signed: Wesley Lloyd MD at 13:54 EDT , Foot X-Ray 06/29/22 11:56 IMPRESSION: Soft tissue swelling. Electronically Signed: Wesley Lloyd MD at 13:52 EDT , Knee X-Ray 06/29/22 11:56 IMPRESSION: Status post total knee replacement. There is good alignment. Soft tissue swelling. Electronically Signed: Wesley Lloyd MD at 13:53 EDT , Pelvis X-Ray 06/29/22 11:56 IMPRESSION: Status post bilateral hip replacement. No acute abnormality is seen. Electronically Signed: Wesley Lloyd MD at 13:57 EDT , Ankle X-Ray 06/29/22 13:00 IMPRESSION: Soft tissue swelling. No fracture is seen. Electronically Signed: Wesley Lloyd MD at 13:33 EDT , Discharge Plan Triage Chief Complaint: Fall ED Provider: Anai Hameed Dx/Rx/DC Orders Clinical Impression: Fall, Acute pain of left knee, Left ankle sprain, Contusion of foot, left Instructions: ED Bandage Elastic Wrap, ED Contusion, Lower Extremity, ED Ankle Sprain (Adult) Prescriptions: New oxycodone-acetaminophen [Percocet] 5-325 mg tablet 1 tab PO Q6H PRN (Reason: pain) 3 Days Qty: 12 0RF No Action allopurinol 100 mg tablet 100 mg PO DAILY cetirizine 10 mg tablet 10 mg PO DAILY PRN (Reason: ALLERGIES) escitalopram oxalate [Lexapro] 10 mg tablet 10 mg PO DAILY hydrochlorothiazide 25 mg tablet 25 mg PO DAILY ibrutinib 140 mg tablet 280 mg PO DAILY levothyroxine 137 mcg tablet 137 mcg PO DAILY losartan 100 mg tablet 100 mg PO DAILY pantoprazole 40 mg tablet,delayed release (DR/EC) 40 mg PO BID Plexus Nerve 2 cap PO/SL DAILY ondansetron 4 mg tablet,disintegrating 4 mg PO Q8H PRN (Reason: nausea and vomiting) Qty: 14 0RF cephalexin 500 mg capsule 500 mg PO Q12 Qty: 14 0RF Primary Care Provider: Jane Baig NP Referrals: Jane Baig NP, PROCESS PROJECT ENGINEER-C [Primary Care Provider] - Activity Restrictions/Additional Instructions: Use ice. Use walker as needed to help with ambulation. Wear Randy wrap to your ankle to help with the swelling and bruising. Wear the walking boot as needed for stability of your ankle/foot. Do not take Tylenol in addition to the pain medicine you are prescribed as there is already Tylenol in it. Take daily MiraLAX to help with opioid-induced constipation. If you feel you cannot function at home with the pain is too severe please return to the emergency room. Disposition Disposition: Home, Self Care What to do if you have Problems For any increased pain, shortness of breath, bleeding, nausea or vomiting, chestpain, or any unexpected problems, contact your Primary Care Provider. Call [facility] ([phone]) or report to the closest Emergency Room. Call 911 if necessary. 06/29/22 0608 <Electronically signed by Anai Hameed DO> Cosigner Signature (if applicable): CC: TARAS Baig ~ Signed [facility] Work Phone: [phone]) 378-997005-05-2023 History of Present illness Narrative* Juju Golden APRN.EDITA - 06/29/2022 11:18 AM EDT Came in with complaints of severe pain in the left hip knee ankle and foot. Patient says she fell at home on the floor this morning she slipped with her socks on the wooden floor. Patient is in excruciating pain can barely even be touched. Patient cannot stand or walk. Patient is being sent to the emergency room for full evaluation and some pain relief. Patient's is going to take her staff is assisting them out at this time. documented in this encounterCleveland Clinic Foundation04-13-2023 History of Present illness Narrative* Cristina Taylor APRN.CNP - 06/07/2022 10:47 AM EDT Chief Complaint Patient presents with: Established Patient HPI: Marcelo Gonzalez is a 76 year old female who presents here today for follow up CLL. Per Dr. Salas's previous note: H/o essential hypertension, hyperlipidemia, GERD, hypothyroidism, osteoarthritis of the knees, degenerative disease of the lumbar spine and possibly RA. Patient was noted to have bilateral axillary adenopathy on a screening mammogram done 06/20/2020. Multiple axillary nodes were noted in the right breast posterior depth upper region and multiple axillary nodes were observed in the left breast posterior depth upper region. Multiple enlarged lymph nodes were observed in the left axilla on US. They had thickened cortexes. There was one enlarged lymph node in the right axilla on ultrasound. And ultrasound core needle biopsy of one of the left axillary lymph nodes was performed on 07/14/2020. 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 Current therapy: Began Imbruvica 09/14/20. Pt. called in c/o fatigue on 06/29/21-imbruvica dose lowered to [address] Salas. S/p L total knee on May 21, [address] Reid. US LLE yesterday neg. for DVT. Pt. stopped imbruvica one week prior to surgery. Imbruvica remains on hold. Appetite:Rotten. Wt. stable. Energy level:I don't have any. Denies fevers. Mouth:denies sores Resp:denies cough or sob at rest, jones long distances Cardiac:denies chest pain/palpitations GI:denies abd pain, +reflux, occ. nausea, denies vomiting, moving bowels regularly-takes senna prn :denies dysuria/hematuria Extrem:discomfort L knee pain since surgery-followed by Ortho, denies pain elsewhere Neuro:denies symptoms of neuropathy Skin:denies rashes Heme:denies bleeding The ROS is otherwise negative. Past medical history, appointments, medications, allergies reviewed. No changes. EXAM: BP 100/53 Pulse 61 Temp 37.3 C (99.1 F) Ht 152 cm (4' 11.84) Wt 77.1 kg (170 lb) SpO2 97% BMI 33.38 kg/m APPEARANCE Well appearing, alert, in no acute distress, well-hydrated, well nourished. HEART RRR with normal S1 and S2, no murmurs LUNG clear to auscultation LYMPH NODES No cervical lymphadenopathy, No supraclavicular lymphadenopathy, and No axillary lymphadenopathy. ABDOMEN bowel sounds normoactive, soft, non-tender EXTREMITIES No edema to RLE, LLE swelling NEURO Awake, alert and oriented x 3, using walker, and No involuntary motions. SKIN Skin color, texture, turgor normal, no suspicious rashes or lesions LABS: Component Latest Ref Rng & Units 03/15/2022 04/12/2022 05/10/2022 06/07/2022 WBC 3.70 - 11.00 k/uL 9.73 8.13 7.55 8.65 RBC 3.90 - 5.20 m/uL 3.81 (L) 3.74 (L) 3.80 (L) 2.89 (L) Hemoglobin 11.5 - 15.5 g/dL 11.9 11.8 12.2 8.8 (L) Hematocrit 36.0 - 46.0 % 35.8 (L) 35.6 (L) 36.1 27.4 (L) MCV 80.0 - 100.0 fL 94.0 95.2 95.0 94.8 MCH 26.0 - 34.0 pg 31.2 31.6 32.1 30.4 MCHC 30.5 - 36.0 g/dL 33.2 33.1 33.8 32.1 RDW-CV 11.5 - 15.0 % 13.5 13.5 13.5 13.9 Platelet Count 150 - 400 k/uL 332 337 326 604 (H) MPV 9.0 - 12.7 fL 9.9 9.8 9.8 8.5 (L) Neut% % 65.7 61.5 63.9 62.1 Abs Neut (ANC) 1.45 - 7.50 k/uL 6.38 5.01 4.83 5.37 Lymph% % 20.2 20.3 18.9 22.1 Abs Lymph 1.00 - 4.00 k/uL 1.97 1.65 1.43 1.91 [place]% % 11.4 13.8 12.6 10.4 Abs [place] <0.87 k/uL 1.11 (H) 1.12 (H) 0.95 (H) 0.90 (H) Eosin% % 0.9 1.0 1.9 3.0 Abs Eosin <0.46 k/uL 0.09 0.08 0.14 0.26 Baso% % 1.3 2.0 2.0 1.7 Abs Baso <0.11 k/uL 0.13 (H) 0.16 (H) 0.15 (H) 0.15 (H) Immature Gran % % 0.5 1.4 0.7 0.7 IMMATURE GRANS (ABS) <0.10 k/uL 0.05 0.11 (H) 0.05 0.06 NRBC /100 WBC 0.0 0.0 0.0 0.0 Absolute nRBC <0.01 k/uL <0.01 <0.01 <0.01 <0.01 DTYPE Auto Auto Auto Auto Component Latest Ref Rng & Units 04/12/2022 05/10/2022 06/07/2022 Protein, Total 6.3 - 8.0 g/dL 6.9 6.9 6.8 Albumin 3.9 - 4.9 g/dL 4.6 4.3 3.8 (L) Calcium 8.5 - 10.2 mg/dL 8.8 9.4 9.3 Bilirubin, Total 0.2 - 1.3 mg/dL 0.3 0.4 0.4 Alkaline Phosphatase 34 - 123 U/L 91 89 113 AST 13 - 35 U/L 18 21 13 ALT 7 - 38 U/L 14 18 8 Glucose 74 - 99 mg/dL 65 (L) 66 (L) 77 BUN 7 - 21 mg/dL 15 21 18 Creatinine 0.58 - 0.96 mg/dL 1.06 (H) 1.17 (H) 1.13 (H) Sodium 136 - 144 mmol/L 132 (L) 135 (L) 131 (L) Potassium 3.7 - 5.1 mmol/L 3.4 (L) 3.7 3.8 Chloride 97 - 105 mmol/L 95 (L) 99 94 (L) CO2 22 - 30 mmol/L 27 26 27 Anion Gap 9 - 18 mmol/L 10 10 10 eGFR >=60 mL/min/1.73m 55 (L) 48 (L) 51 (L) ASSESSMENT/PLAN: 1. CLL (chronic lymphocytic leukemia) (HCC) - ICD9: 204.10, ICD10: C91.10 - Tolerated lower dose of imbruvica better-2 capsules daily prior to L knee surgery. Energy improved. - Reviewed CBC/CMP with pt. and family members. - Continue to hold imbruvica 2 capsules daily. - Follow up with Cardiology/Ortho/PCP as scheduled. - CBC in two weeks. - Pt. will send a my chart message in two weeks with an update on how she is feeling. - Plan to restart imbruvica in two weeks. - CBC/CMP monthly. - Follow up in 3 months with CBC/CMP. - Pt. aware to call office with any questions/concerns. The patient indicates understanding of these issues and agrees with the plan. All documentation from previous visit of 03/15/22-Dr. Salas/myself was copied and pasted, documentation has been reviewed and edited as necessary for today's visit. Cristina Taylor APRN.CNP documented in this encounterCleveland Clinic Foundation03-31-2023 Miscellaneous Notes* Telephone Encounter - Joana Dhaliwal RN - 05/25/2022 4:11 PM EDT Pts called and is notified of providers message and instructions. He voices understanding and will talk with his daughter about getting it. Called and left a detailed voicemail notifying C[facility] with [facility] of providers message. Hospital phone number was left in case she had any questions. Joana Dhaliwal RN * Telephone Encounter - Jane Baig APRN.CNP - 05/25/2022 3:14 PM EDT I would suggest to try some magnesium citrate. Drink 1/3 of the bottle, if nothing in a few hours, drink another 1/3 of the bottle, if nothing in a few hours -- finish the bottle. If she develops anyabdominal pain or vomiting -- she should proceed to the ER. Jane Baig APRN.CNP * Telephone Encounter - Joana Dhaliwal RN - 05/25/2022 2:37 PM EDT Cathy with [facility] called in and reports Pt has a recent knee surgery. She states she is having difficulty having a BM, her last one was Saturday. Pt has been taking Miralax and Senna. She took Miralaxthis morning. She states she isn't eating well. Cathy is telling them to push fluids. She is asking if there is any medication the provider would recommend or if she would want her to come in and beseen. documented in this encounterCleveland Clinic Foundation03-08-2023 History of Present illness Narrative* Karli Green - 05/02/2022 9:52 AM EST [facility] Specialty Refill Assessment Medication(s): Imbruvica Patient's current medication list and adherence status to current therapy were reviewed by Specialty Pharmacy clinical pharmacist to identify any new drug interactions or non-compliance to therapy. Therapy continues to be appropriate for disease, patient response, and medical condition. Verification of therapeutic benefit and effectiveness with current therapy was completed. Adverse events, barriers in adherence, and side effects were assessed and addressed if applicable. Will proceed with refill with no changes in therapy - patient progressing towards achieving therapeutic goals based on medication- specific laboratory parameters, disease state markers and outcomes. 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 Patient confirmed: Yes Med/dose confirmed: Yes Supplies needed: No supplies needed Missed doses: No Estimated days supply on hand: 6 (pt will be holding medication for 2 weeks due to knee surgery) Copay amount: 0 Payment confirmed: Yes Delivery method: FedEx Signature required: No Delivery address: [address] [place] [address], [id number] Delivery date: 05/07/22 Questions or concerns for the pharmacist?: No [facility] Visit Assessment - Hematology/Oncology: Assessment to use: Refill Vaccination Assessment: Date of influenza vaccination reminder: 11/02/2021 Date of most recent vaccination assessment: 11/02/2021 Treatment Plan Information: Treatment Plan Information: 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 06/29/21 DR 280mg daily Admin/Storage: Take with glass of water at same time each day, avoid grapefruit/[place] oranges A/E: Cardiovascular effects,GI (diarrhea, constipation, abdominal pain, decreased appettite, dyspepsia, N/V, stomatitis), HTN, TLS, rash, anemia, neutropenia, thrombocytopenia, bruising, petechia, arthralgia, asthenia, muscle spasm, musculoskeetal pain Pt is on allopurinol D/I: Category C with lexapro-imbruvica may enhance antiplatelet effects of lexapro Lab: blood counts monthly or as clinically necessary renal and hepatic function uric acid levels as clinically necessary monitor blood pressure monitor for sign/symptoms of bleeding, infections, progressive multifocal encephalopathy, tumor lysis syndrome, second primary malignancies; signs/symptoms of cardiac arrhythmias and/or heart failure; ECG prior to initiation (patients with cardiac risk factors or history of cardiac arrhythmias) andduring therapy if clinically indicated Karli Green documented in this encounterCleveland Clinic Foundation03-01-2023 Miscellaneous Notes* Telephone Encounter - Cathy Teresa MA - 04/25/2022 11:24 AM EST Medical clearance request received from [facility]. Patient scheduled for TKA, L on 05/21/22 and ortho pre op on 05/09/22. Patient scheduled for pre op clearance on 05/07/22 with Jane. Form in nurse station for patient'sOV. Cathy Teresa MA documented in this encounterCleveland Clinic Foundation02-16-2023 Miscellaneous Notes* Telephone Encounter - Anna Cornejo LPN - 04/12/2022 10:37 AM EST Patient does not need an OV and labs with [place] for surgical clearance. Patient can stay as scheduled for CBC/CMP 05/10/2022. Lab/OV appointments for 04/25/2022 have been canceled. [facility] will fax over a surgical clearance form and asked that we provide Imbruvica instructions for the dodie-operative period. I called and left a detailed message on patient's identified VM. I will also send a [place] messagewith all information. Anna Cornejo LPN * Telephone Encounter - Dorota Glez - 04/12/2022 10:05 AM EST Patient presented at [facility] help desk associate wanting to scheduled with Cristina as she is having knee surgery on 05/21/22 and is on Imbruvica. Patient is scheduled for 04/25/22. Please advise if any labs besidesCBC/CMP are needed. Dorota Glez documented in this encounterCleveland Clinic Foundation02-15-2023 Miscellaneous Notes* Telephone Encounter - SHAHLA Velez - 04/11/2022 12:24 PM EST Patient is scheduled for a pre op visit with Jane Baig on 05/14/22. SHAHLA Velez April 11, 2022 12:24 PM * Telephone Encounter - Aurora Stanley Ma - 04/06/2022 1:56 PM EST Fax from [facility] for Surgical Clearance. Patient needs appointment Surgery is on 05/21/22. Please schedule pre-op exam with pcp Aurora Stanley Ma documented in this encounterCleveland Clinic Foundation02-06-2023 Miscellaneous Notes* Telephone Encounter - Marcio Padron LPN - 04/02/2022 1:56 PM EST Pt notified. She verbalized understanding. Marcio Padron LPN * Telephone Encounter - Jane Baig APRN.CNP - 04/02/2022 11:37 AM EST Script is sent in. Please apologize for any delay. This encounter was just sent to me today (at 11:16). Unfortunately, delay was likely the result of the computers being down in the building on 03/30/22. Jane Baig APRN.EDITA * Telephone Encounter - Shawna Fry Reynaldo Pss - 04/02/2022 8:57 AM EST Patient is very irate and upset. She is in discomfort. She is asking that her request for the Protonix be handled today and would like to state again that she takes it twice a day. She states with her cancer it only is effective if she takes it twice a day. Please call her when sent [phone] * Telephone Encounter - Sherry Car - 03/30/2022 12:57 PM EST Patient has been identified by name and date of : Yes Pharmacy requesting update directions. And sent in again. Requested Prescriptions Pending Prescriptions Disp Refills pantoprazole DR (PROTONIX) 40 mg tablet Sig: Take 1 tablet by mouth twice daily. Patient is taking the medication 2 x daily. RX INSTRUCTIONS: Patient aware RX will be sent to pharmacy. No need to notify patient. Sherry Car documented in this encounterCleveland Clinic Foundation01-12-2023 Miscellaneous Notes* Telephone Encounter - Cee Mercado RN - 03/08/2022 9:45 AM EST Requested Prescriptions Pending Prescriptions Disp Refills Oxyquinoline-Na Lauryl Sulfate (TRIMO-SCHUSTER JELLY) 0.025-0.01 % gel 113.4 g 1 Sig: Use 1 Inch vaginally two times a week. RX INSTRUCTIONS: Patient aware RX will be sent to pharmacy. No need to notify patient. Cee Mercado RN documented in this encounterCleveland Clinic Foundation12-29-2022 Miscellaneous Notes* Telephone Encounter - Cathy Lawton RN - 02/22/2022 9:42 AM EST Patient informed of Dr. Bernard's response, stated understanding. Cathy Lawton RN * Telephone Encounter - Scotty Bernard MD - 02/22/2022 9:39 AM EST Agree. Follow-up with PCP Scotty Bernard MD * Telephone Encounter - Cathy Lawton RN - 02/22/2022 9:12 AM EST Patient stated she woke up this morning and feels stuffy in my head. Patient stated she was treated for a URI with a z-pack on 02/09. Patient was feeling better until today. Patient stated the onlycomplaint she has is nasal congestion and a cough at night when she is lying down. Patient denies fever sinus pressure/pain, headache, or SOB. Patient is asking if she can take Taty-Hoffman plus for cold symptoms. Patient is currently on ibrutinib. Discussed supportive measures for a cold. Patient aware this nurse will discuss with Dr. Bernard and call back with further instructions. Cathy Lawton RN * Telephone Encounter - Janet Townsend - 02/22/2022 8:57 AM EST Patient called the office stating that she is beginning to have symptoms of a cold. She would like to know if she can Alcaseltzer day and night OTC medication. She is unsure if this will interact with her Imbruvica. Please contact the patient to advise. documented in this encounterCleveland Clinic Foundation12-16-2022 Instructions* Patient Instructions* Ang Webb PA-C - 02/09/2022 3:05 PM EST Facts About the Common Cold and Upper Respiratory Infection: Common symptoms include: sore throat, tender lymph nodes, low grade fever 99- 101F for first few days, watery nasal drip that progresses to thick yellow-green mucus on blowing and on coughing, facial/sinus pressure, headache, chest tightness and tiredness/ fatigue. Usually they peak with the worst symptoms about 5-7 days and take another 5-7 days to clear, in other words 10-14 days. Occasionally there will be a persistent nagging cough or some residual minor nasal congestion up to several weeks. Viral infections are not susceptible to antibiotics. Due to the critical issues with global antibiotic resistance, we do not prescribe antibiotics if we suspect viral sources. Antibiotics can cause serious complications and therefore should be reserved for only serious infections. Get plenty of rest. Force fluids daily with water and juices. Nasal saline spray may help to keep nose open and moist: 2-3 squirts each side every few hours. This also help to rinse out virus and bacteria causing infection. Cool mist humidifier in room during sleep. May use OTC Tylenol or Ibuprofen as direct for discomfort. For sore throat, warm salt water gargles, Chlorseptic spray, lozenges or other OTC sore throat remedies may help. Decongestants such as plain Sudafed or with expectorant such as Mucinex D may help with nasal stuffiness or facial and sinus pressure. Generics are fine. These are over the counter but require an adult signature. Oxymetolazine nasal decongestants (Afrin, Dristan, Thor's) may also help (in place of oral decongestants) but should not be used longer than 48-72 hours due to potential rebound congestion. OTC antihistamines such Benadryl (make cause drowsiness) or Zyrtec/ Clariten/ Hayley (non-drowsy) may help watery nasal drainage though they are generally not recommended because they dry mucus and make it sticky. The flow of mucus is important to help your body rid the virus. If cough keeps you awake at night, try OTC remedies first, such as Nyquil, Delsym, Thor's 44 or Mucinex DM. If this doesn't help you sleep, call the office for a prescription. Be careful if you are combining cough and cold medications that you aren't doubling the medicines. If you aren't sure: ask the pharmacist for help. Cough or sneeze into your sleeve to prevent spread of infected secretions. Wash your hands frequently. Try not to cough or sneeze on surfaces others might touch. If symptoms fail to improve in 5-7 days, fever > 100.5F, general worsening, or other concerning symptoms: start Zithromax as directed per prescription. Finish all doses. If you should breakout in a rash, stop the medicine and call the office. Any antibiotic has the potential to cause diarrhea due to alteration in the normal bacterial shell of the gut. This can be reduced by eating yogurt with active cultures daily while on the medication.If diarrhea becomes severe (watery, large volumes or more than 3-4/day) call the office. Women may experience yeast vaginitis due to alteration in the vaginal shell. Symptoms include vaginal itching, irritation, and often a clumpy white discharge. If this occurs, there are several effective over the counter remedies available, including one-dose treatments. If these are unsuccessful, call the office. Antibiotics may interfer with control. If you are on oral contraceptives, use another form of protection (condoms, foams, jellies, diaphragm) throught the end of whatever pill pack you are on in 10 days. Please return to [facility] or Jane Baig APRN.GOLF BALL WINDER as need documented in this encounterCleveland Clinic Foundation12-16-2022 History of Present illness Narrative* Ang Webb PA-C - 02/09/2022 2:49 PM EST 76 year old female with c/o started with headache 3 days across forehead with pressure. Jabs of pain in ear and throat today. Ears are a little better. Not feverish. Always cold. A little cough a night, not much. No SOB. No N/V/D Takes laxative once or twice a week. HISTORIES FAMILY HISTORY Problem Relation Age of Onset Hypertension Mother Stroke Mother other (DIVERTICULITIS) Mother Heart Father Hypertension Father Colon Cancer Sister age 48-50 Diabetes Maternal Grandmother Thyroid Sister X-2 Thyroid Child 2 Daughters Asthma No Family History Allergies No Family History PAST MEDICAL HISTORY Diagnosis Date Allergic rhinitis due to animal hair and dander + testing dander, dust, outside. [facility]. Arthritis of both knees 03/04/2012 CKD (chronic kidney disease), stage III (HCC) Degeneration of intervertebral disc, site unspecified Degenerative arthritis of hip 03/04/2012 Diverticulosis of colon (without mention of hemorrhage) Endometriosis Family history of malignant neoplasm of gastrointestinal tract Hyperlipidemia Hypertension Internal hemorrhoids without mention of complication Other specified gastritis Unspecified hypothyroidism PAST SURGICAL HISTORY Procedure Laterality Date ARTHRP ACETBLR/PROX FEM PROSTC AGRFT/ALGRFT 2012 Left Hip ARTHRP ACETBLR/PROX FEM PROSTC AGRFT/ALGRFT Right 01/21/2017 Dr. Reid COLONOSCOPY FLX DX W/COLLJ SPEC WHEN PFRMD 12/16/08 DILATION & CURETTAGE DX&/THER NONOBSTETRIC 1969' multiple LAMINECTOMY W/O FFD > 2 VERT SEG LUMBAR 2009 titanium chris PAST SURGICAL HISTORY OF 2001 FOOT SURGERY PAST SURGICAL HISTORY OF Jan 2004 Dr. Mclean - Back Surgery-upper back - metal rods and cadaver bone TOTAL ABDOMINAL HYSTERECT W/WO RMVL TUBE OVARY 1986 Hysterectomy, ANDREW/BSO Social History Tobacco Use Smoking status: Former Types: Cigarettes Smokeless tobacco: Never Tobacco comments: None since age 20s. No smoking in childhood home. Spouse of 56 years stopped smoking 1974. Vaping Use Vaping Use: Never used Substance Use Topics Alcohol use: No Drug use: No ACTIVE PROBLEM LIST Hypothyroidism Backache, Unspecified Essential Hypertension, Benign Hyperlipidemia Gerd (Gastroesophageal Reflux Disease) Lumbar Disc Prolapse With Compression Radiculopathy Vitamin D Deficiency Viral Exanthem Other Specified Erythematous Condition(085.89) Pruritus Xerosis Cutis Pityriasis rosea: atypical Arthritis of Both Knees Degenerative Arthritis of Hip Pain in Joint, Pelvic Region and Thigh S/P Hip Replacement TMJ Dysfunction Mixed Anxiety Depressive Disorder Allergic Rhinitis Due to Animal Hair and Dander Obesity, Class I, Bmi 30-34.9 Chronic Pain of Left Knee Primary Osteoarthritis of Left Knee Rex (Acute Kidney Injury) (Hcc) Cll (Chronic Lymphocytic Leukemia) (Hcc) Ckd (Chronic Kidney Disease), Stage Iii (Hcc) Seborrheic Keratoses Current Outpatient Medications Medication Sig Dispense Refill hydroCHLOROthiazide (HYDRODIURIL, ESIDRIX) 25 mg tablet Take 1 tablet by mouth once daily. [address] (PROTONIX) 40 mg tablet Take 1 tablet by mouth once daily. 180 tablet 1 allopurinol (ZYLOPRIM) 100 mg tablet take 1 tablet by mouth once daily 90 tablet 3 ibrutinib (IMBRUVICA) 140 mg capsule Take 2 capsules (280mg) by mouth once daily. 60 capsule 1 escitalopram oxalate (LEXAPRO) 10 mg tablet take 1 tablet by mouth once daily 90 tablet 3 levothyroxine (SYNTHROID) 137 mcg tablet Please take 137 mcg tablet daily 6 days a week, 1/2 tableton seventh day. 90 tablet 3 acetaminophen (TYLENOL ARTHRITIS ORAL) Take 1 tablet by mouth twice daily as needed. losartan (COZAAR) 100 mg tablet Take 1 tablet by mouth once daily. 90 tablet 3 Oxyquinoline-Na Lauryl Sulfate (TRIMO-SCHUSTER JELLY) 0.025-0.01 % gel Use 1 Inch vaginally two times a week. 1 Tube 2 cetirizine (ZYRTEC) 10 mg tablet Take 10 mg by mouth once daily. OTC PRODUCT Plexus nerve, 2 capsules every night Current Facility-Administered Medications Medication Dose Route Frequency Provider Last Rate Last Admin perflutren lipid microspheres 1.3 mL in NaCl (PF) 0.9% 10 mL injection (DEFINITY) INTRAVENOUS DIRECTED PRN Urban Kruger APRN.TRACE KOHLER sodium chloride 0.9 % (flush) 10 mL (BD POSIFLUSH) 10 mL INTRAVENOUS DIRECTED PRN Urban Kruger APRN.TRACE KOHLER DTAP,TDAP,TD(1 - Tdap) Never done COVID-19 VACCINE(4 - Booster for Pfizer series) due on 12/16/2020 ADVANCE DIRECTIVE DISCUSSION Never done EXAM: BP 128/76 Pulse (!) 56 Temp 37.1 C (98.8 F) Resp 20 Wt 76.7 kg (169 lb) SpO2 96% BMI 33.01 kg/m Pleasant overweight adult woman in no acute distress. Alert and oriented all spheres. Normal affectand cognition. Speech normal. No deficits to learning or comprehension. Skin warm, dry, pink to lips and nailbeds. Normal turgor. Respirations regular and unlabored. HEENT: NCAT. No scleral icterus or conjunctival injection. TM's clear. Nose and oropharynx free from injection or drainage. Oral membranes moist and pink. No pharyngeal erythema, or sores. No cervical lymph nodes. Thyroid non-tender, no masses, or enlargement. Carotids pulses 2+/4+ without bruits. No JVD with HOB at 30 degrees. Chest is normal shape. Lungs are clear to all loza with good air exchange through out. HRRR without murmur or gallop. No lifts, heaves, or rubs. Extrem: no clubbing or cyanosis. Edema: none. Extremities are warm and pink with prompt capillary refill. ASSESSMENT/PLAN: 1. URI, acute - ICD9: 465.9, ICD10: J06.9 (primary diagnosis) - Discussed viral etiology and rationale for treatment. - Symptomatic treatment with prn analgesia - Supportive care with fluids and rest and good nutrition If progressive, fever, chest congestion: start Z-pack. 2. CLL (chronic lymphocytic leukemia) (HCC) - ICD9: 204.10, ICD10: C91.10 Stable on chemo but at risk for infection Ang Webb PA-C documented in this encounterCleveland Clinic Foundation12-16-2022 Miscellaneous Notes* Telephone Encounter - Cristine Luu LPN - 02/09/2022 11:49 AM EST Patient has been identified by name and date of : Yes Patient phones for refill(s): Requested Prescriptions Pending Prescriptions Disp Refills losartan (COZAAR) 100 mg tablet [Pharmacy Med Name: LOSARTAN POTASSIUM 100 MG TAB] 90 tablet 3 Sig: take 1 tablet by mouth once daily Date of last office visit in primary care: 02/09/22 Last 2 Encounter Wt Readings: Date: Wt: 12/12/2021 75.5 kg (166 lb 8 oz) 11/23/2021 74.8 kg (165 lb) Previous labs/tests for medication: Blood Pressure: BUN (mg/dL) Date Value 02/08/2022 21 04/17/2021 18 Sodium (mmol/L) Date Value 02/08/2022 134 04/17/2021 139 Last 1 Encounter BP Readings: Date: BP: 12/12/2021 119/63 Thank you. Cristine Luu LPN documented in this encounterCleveland Clinic Foundation12-07-2022 History of Present illness Narrative* Mei Olguin (Agricultural Service Worker) - 01/31/2022 10:17 AM EST [facility] Specialty Refill Assessment Medication(s): Imbruvica Patient's current medication list and adherence status to current therapy were reviewed by Specialty Pharmacy clinical pharmacist to identify any new drug interactions or non-compliance to therapy. Therapy continues to be appropriate for disease, patient response, and medical condition. Verification of therapeutic benefit and effectiveness with current therapy was completed. Adverse events, barriers in adherence, and side effects were assessed and addressed if applicable. Will proceed with refill with no changes in therapy - patient progressing towards achieving therapeutic goals based on medication- specific laboratory parameters, disease state markers and outcomes. 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 Patient confirmed: Yes Supplies needed: No supplies needed Missed doses: No Estimated days supply on hand: 7 Copay amount: 0 Payment confirmed: Yes Delivery method: FedEx Signature required: No Delivery address: [address] [place] [address] *[address], [address] [place] [address] Delivery date: 02/05/22 Questions or concerns for the pharmacist?: No [facility] Visit Assessment - Hematology/Oncology: Assessment to use: Refill Vaccination Assessment: Date of influenza vaccination reminder: 11/02/2021 Date of most recent vaccination assessment: 11/02/2021 Treatment Plan Information: Treatment Plan Information: 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 06/29/21 DR 280mg daily Admin/Storage: Take with glass of water at same time each day, avoid grapefruit/[place] oranges A/E: Cardiovascular effects,GI (diarrhea, constipation, abdominal pain, decreased appettite, dyspepsia, N/V, stomatitis), HTN, TLS, rash, anemia, neutropenia, thrombocytopenia, bruising, petechia, arthralgia, asthenia, muscle spasm, musculoskeetal pain Pt is on allopurinol D/I: Category C with lexapro-imbruvica may enhance antiplatelet effects of lexapro Lab: blood counts monthly or as clinically necessary renal and hepatic function uric acid levels as clinically necessary monitor blood pressure monitor for sign/symptoms of bleeding, infections, progressive multifocal encephalopathy, tumor lysis syndrome, second primary malignancies; signs/symptoms of cardiac arrhythmias and/or heart failure; ECG prior to initiation (patients with cardiac risk factors or history of cardiac arrhythmias) andduring therapy if clinically indicated Mei Olguin ([employer]) documented in this encounterCleveland Clinic Foundation11-10-2022 Miscellaneous Notes* Telephone Encounter - Zack Wooten MD - 01/04/2022 1:55 PM EST If severe, hot or red, needs seen here or urgent care * Telephone Encounter - Cristina Taylor APRN.CNP - 01/04/2022 11:29 AM EST Agree. I do not feel that this is related to ibrutinib. I spoke to pt. and advised her to monitor area and if worsens go to UC or PCP. Thank you. Cristina Taylor APRN.EDITA * Telephone Encounter - Judy Chakraborty RN - 01/04/2022 10:32 AM EST Call to patient and states that she started noticing some swelling in her left ankle on this week. Today she is calling because it's really puffy She is unable to see ankle bones and states heleft foot is swollen too. States she does think that she has 2 spider bites on the outside of her left ankle that happened Tues night in bed. She is not 100% sure but this is this only thing I can think of Denies injury or redness to site. States the spider bites are very itchy, she has been using Neosporin to site with spot band-aids applied. States her ankle has pain only when it's propped up while sitting or when lying in bed. States 7/1-10 scale and describes as throbbing pain. The only thing that makes it better is getting up and walking on it. States no pain with ambulating. She has used Tylenol but not helping. States she had a cortizone shot in her left knee yesterday but that has never caused swelling in her foot/ankle. Denies fever/chills or other concerning symptoms. Patient aware that this is not likely from the Ibrutinib and agreed that she didn't think so but thought she should call and make us aware. Patient aware that I will relay information to Cristina Taylor CNP and to Jane Baig CNP (patient states as her PCP). She is aware that someone will call back with further instructions. Sherry Chakraborty RN * Telephone Encounter - Cristina Taylor APRN.CNP - 01/04/2022 9:31 AM EST Please call the pt. Thank you. Cristina Taylor APRN.CNP * Telephone Encounter - Luci Syed Pss - 01/04/2022 8:45 AM EST Patient called stating she has a swolen ankle. Patient states she wants to speak with Cristina before speaking with PCP. documented in this encounterCleveland Clinic Foundation10-18-2022 History of Present illness Narrative* Cristina Taylor APRN.CNP - 12/12/2021 9:32 AM EDT Chief Complaint Patient presents with: Established Patient HPI: Marcelo Gonzalez is a 76 year old female who presents here today for follow up CLL. Per Dr. Salas's previous note: H/o essential hypertension, hyperlipidemia, GERD, hypothyroidism, osteoarthritis of the knees, degenerative disease of the lumbar spine and possibly RA. Patient was noted to have bilateral axillary adenopathy on a screening mammogram done 06/20/2020. Multiple axillary nodes were noted in the right breast posterior depth upper region and multiple axillary nodes were observed in the left breast posterior depth upper region. Multiple enlarged lymph nodes were observed in the left axilla on US. They had thickened cortexes. There was one enlarged lymph node in the right axilla on ultrasound. And ultrasound core needle biopsy of one of the left axillary lymph nodes was performed on 07/14/2020. 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 Current therapy: Began Imbruvica 09/14/20. Pt. called in c/o fatigue on 06/29/21-imbruvica dose lowered to [address] Salas. Pt. had Covid in early Oct. She was not hospitalized. Here today with family member. I'm still tired. But I'm doing better. Appetite:Good. I've been trying to cut back on eating. Wt. down 3# since last OV in August. Energy level:Fair. Denies fevers. Covid as above. Mouth:denies sores Resp:lingering cough since covid, denies sob at rest, jones long distances Cardiac:denies chest pain/palpitations GI:denies abd pain, n/v, moving bowels regularly-takes senna prn :denies dysuria/hematuria Extrem:chronic L knee pain-followed by Ortho-pt. had cortisone inj. early August Neuro:denies symptoms of neuropathy Skin:denies rashes/lesions Heme:denies bleeding The ROS is otherwise negative. Past medical history, appointments, medications, allergies reviewed. No changes. EXAM: BP 119/63 Pulse 64 Temp 36.8 C (98.2 F) (Temporal) Wt 75.5 kg (166 lb 8 oz) BMI 32.52 kg/m APPEARANCE Well appearing, alert, in no acute distress, well-hydrated, well nourished. HEART RRR with normal S1 and S2, no murmurs LUNG clear to auscultation LYMPH NODES No cervical lymphadenopathy, No supraclavicular lymphadenopathy, and No axillary lymphadenopathy. ABDOMEN bowel sounds normoactive, soft, non-tender, non-distended, without organomegaly or palpablemasses, no tenderness to palpation EXTREMITIES No edema NEURO Awake, alert and oriented x 3, uses a cane to ambulate, and No involuntary motions. SKIN Skin color, texture, turgor normal, no suspicious rashes or lesions LABS: Component Latest Ref Rng & Units 09/06/2021 10/04/2021 11/01/2021 11/23/202112/0412/04/2021 12/12/2021 WBC 3.70 - 11.00 k/uL 10.38 8.48 8.23 9.31 8.68 7.86 RBC 3.90 - 5.20 m/uL 3.84 (L) 3.90 3.67 (L) 3.45 (L) 3.58 (L) 3.79 (L) Hemoglobin 11.5 - 15.5 g/dL 11.8 11.9 11.3 (L) 11.0 (L) 11.5 11.7 Hematocrit 36.0 - 46.0 % 35.9 (L) 36.0 34.2 (L) 33.4 (L) 34.5 (L) 35.8 (L) MCV 80.0 - 100.0 fL 93.5 92.3 93.2 96.8 96.4 94.5 MCH 26.0 - 34.0 pg 30.7 30.5 30.8 31.9 32.1 30.9 MCHC 30.5 - 36.0 g/dL 32.9 33.1 33.0 32.9 33.3 32.7 RDW-CV 11.5 - 15.0 % 13.4 13.7 14.1 14.6 14.8 14.6 Platelet Count 150 - 400 k/uL 343 351 343 423 (H) 372 401 (H) MPV 9.0 - 12.7 fL 10.3 10.2 10.0 9.7 10.7 10.1 Neut% % 62.9 59.6 62.4 67.6 55.5 64.8 Abs Neut (ANC) 1.45 - 7.50 k/uL 6.53 5.06 5.13 6.29 4.82 5.09 Lymph% % 22.5 20.3 18.8 17.3 26.3 20.4 Abs Lymph 1.00 - 4.00 k/uL 2.34 1.72 1.55 1.61 2.28 1.60 [place]% % 10.7 15.7 13.7 12.0 13.6 9.9 Abs [place] <0.87 k/uL 1.11 (H) 1.33 (H) 1.13 (H) 1.12 (H) 1.18 (H) 0.78 E[place]% % 1.9 1.4 2.7 1.3 2.8 2.0 Abs Eosin <0.46 k/uL 0.20 0.12 0.22 0.12 0.24 0.16 Baso% % 1.3 1.9 1.8 1.3 1.5 2.0 Abs Baso <0.11 k/uL 0.13 (H) 0.16 (H) 0.15 (H) 0.12 (H) 0.13 (H) 0.16 (H) Immature Gran % % 0.7 1.1 0.6 0.5 0.3 0.9 IMMATURE GRANS (ABS) <0.10 k/uL 0.07 0.09 0.05 0.05 0.03 0.07 NRBC /100 WBC 0.0 0.0 0.0 0.0 0.0 0.0 Absolute nRBC <0.01 k/uL <0.01 <0.01 <0.01 <0.01 <0.01 <0.01 DTYPE Auto Auto Auto Auto Auto Auto CMP: Pending ASSESSMENT/PLAN: 1. CLL (chronic lymphocytic leukemia) (HCC) - ICD9: 204.10, ICD10: C91.10 - Tolerating lower dose of imbruvica better-2 capsules daily. Energy improved. - Reviewed CBC with pt. and family member. - CMP pending. - Continue imbruvica 2 capsules daily. - Follow up with Cardiology/Ortho/PCP as scheduled. - CBC/CMP monthly. - Follow up in 3 months with CBC/CMP. - Pt. aware to call office with any questions/concerns. The patient indicates understanding of these issues and agrees with the plan. All documentation from previous visit of 09/06/21-Dr. Salas/myself was copied and pasted, documentation has been reviewed and edited as necessary for today's visit. Cristina Taylor APRN.EDITA documented in this encounterCleveland Clinic Foundation10-05-2022 Miscellaneous Notes* Telephone Encounter - Ang Webb PA-C - 11/29/2021 11:00 AM EDT Please apologize as we are both replying to labs. I think anemia work up is a good idea though she has been essentially stable for several months. Please follow recs for thyroid unless Jane wishes to change. Thanks, Hans Webb PA-C * Telephone Encounter - Marcio Padron LPN - 11/29/2021 10:02 AM EDT See TE from Jane regarding lab results. documented in this encounterCleveland Clinic Foundation10-05-2022 Miscellaneous Notes* Telephone Encounter - Marta Ibanez MA - 11/29/2021 10:18 AM EDT Patient notified of results, states she's confused with all the information given to her. Advised patient I would copy into a [employer] message so she would be able to read the instructions and results& be able to refer back if needed. Marta Ibanez MA * Telephone Encounter - Marta Ibanez MA - 11/29/2021 10:15 AM EDT ----- Message from Ang Webb PA-C sent at 11/29/2021 9:29 AM EDT ----- Please advise CBC and CMP are essentially normal except for blood sugar is low, likely from poor intake. I would encourage her to get some form of glucose in her system just to help with energy and as discussed previously she needs some good protein sources to help her immune system. Her thyroid shows normal TSH but her free T4 is elevated and T3 is low. She was previously on Synthroid 125 MCG and increased to this dose. My recommendation would be to lower this just slightly, take 137 MCG daily 6 days a week and the seventh day take half a tablet. Recheck TSH and free T4, T3 in 2 months. -TSH BLD: -T4 FREE/FREE THYROX: -T3 BLD: Thanks, Hans Webb PA-C documented in this encounterCleveland Clinic Foundation10-05-2022 Miscellaneous Notes* Telephone Encounter - Marcio Padron LPN - 11/29/2021 10:04 AM EDT See [facility] message. Marcio Padron LPN * Telephone Encounter - Jane Baig APRN.CNP - 11/29/2021 9:20 AM EDT Can please let patient know that I received her lab results. Upon reviewing her lab results, it looks like her blood count has been just slowing going down a little bit. I would like to get more of an anemia work-up, including having her do a stool sample to look for any hidden blood. The orders are in. Please have her complete these at her convenience. Jane Baig APRN.EDITA documented in this encounterCleveland Clinic Foundation10-05-2022 History of Present illness Narrative* Mei Olguin (Agricultural Service Worker) - 11/29/2021 9:30 AM EDT [facility] Refill Assessment Medication(s): Imbruvica Patient's current medication list and adherence status to current therapy were reviewed by Specialty Pharmacy clinical pharmacist to identify any new drug interactions or non-compliance to therapy. Therapy continues to be appropriate for disease, patient response, and medical condition. Verification of therapeutic benefit and effectiveness with current therapy was completed. Adverse events, barriers in adherence, and side effects were assessed and addressed if applicable. Will proceed with refill with no changes in therapy - patient progressing towards achieving therapeutic goals based on medication- specific laboratory parameters, disease state markers and outcomes. 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 Patient confirmed: Yes Med/dose confirmed: Yes Supplies needed: No supplies needed Missed doses: No Estimated days supply on hand: 8 Copay amount: 0 Payment confirmed: Yes Delivery method: FedEx Signature required: No Delivery address: [address] [place] [address], [place] [address] Delivery date: 12/05/21 Questions or concerns for the pharmacist?: No [facility] Visit Assessment - Hematology/Oncology: Assessment to use: Refill Vaccination Assessment: Date of influenza vaccination reminder: 11/02/2021 Date of most recent vaccination assessment: 11/02/2021 Treatment Plan Information: Treatment Plan Information: 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 06/29/21 DR 280mg daily Admin/Storage: Take with glass of water at same time each day, avoid grapefruit/[place] oranges A/E: Cardiovascular effects,GI (diarrhea, constipation, abdominal pain, decreased appettite, dyspepsia, N/V, stomatitis), HTN, TLS, rash, anemia, neutropenia, thrombocytopenia, bruising, petechia, arthralgia, asthenia, muscle spasm, musculoskeetal pain Pt is on allopurinol D/I: Category C with lexapro-imbruvica may enhance antiplatelet effects of lexapro Lab: blood counts monthly or as clinically necessary renal and hepatic function uric acid levels as clinically necessary monitor blood pressure monitor for sign/symptoms of bleeding, infections, progressive multifocal encephalopathy, tumor lysis syndrome, second primary malignancies; signs/symptoms of cardiac arrhythmias and/or heart failure; ECG prior to initiation (patients with cardiac risk factors or history of cardiac arrhythmias) andduring therapy if clinically indicated Mei Olguin (Agricultural Service Worker) documented in this encounterCleveland Clinic Foundation09-29-2022 History of Present illness Narrative* Dominique Martinez RT(R) - 11/23/2021 11:00 AM EDT Radiology Service Progress Note PATIENT NAME: Marcelo Gonzalez DATE OF SERVICE: November 23, 2021 TIME: 10:51 AM PATIENT IDENTITY VERIFICATION COMPLETED USING TWO (2) IDENTIFIERS: Name and Date of confirmedby patient verbally. FALL SCREENING: Has the patient had 2 falls in the last year or 1 fall with injury or currently using an Ambulatory Assistive Device (Walker, Cane, Wheelchair, Crutches, etc.)? Yes, Patient High Riskfor Falls What interventions were put in place to prevent falls during this visit? Offered Assistance with Transfers/Clothing and Instructed Patient to Remain Seated (Not on Exam Table) Until Exam PATIENT GENDER DATA: Female. status: : No status: NO. PATIENT RELEVANT IMPLANT DATA REVIEWED: Not Applicable RADIOLOGY DEPARTMENT: General X-ray: Exam(s) Completed: Chest X-Ray PERIPHERAL IV DATA: Not applicable SIGNED BY: RT Manav(R) November 23, 2021 10:51 AM documented in this encounterCleveland Clinic Foundation09-29-2022 History of Present illness Narrative* M Houston Webb PA-C - 11/23/2021 10:03 AM EDT 6 year old female with c/o f/u from Covid: persistent cough, fatigue 11/06/2021 Positive Covid-19 home test, was evaluated remotely by Jane Baig CNP 11/07/2021 blacked out, was taken to ED. Diagnosed with UTI Notes indicate orders for monoclonal antibodies from Dr. Salas to [facility]. 11/08/2021 monoclonal antibody infusion 11/10/2021 slightly improving. Was told to watch pulse ox and report if worse. States feeling about the same as 2 weeks ago from last visit with Jane Right ear feels plugged, swollen lymph nodes under right chin. Cough is deep, not expectorating anylonger but had been bringing up yellow thick mucus, no blood. Denies MANDUJANO, No sinus pain, headache, body aches, some taste has gone,loss of smell, sore throat, chest pain, nausea, vomiting, diarrhea (had some attributed to ATB from hospital). No urinary frequency, burning, fever, chills, flank or back pain. Identifies blowing nose a lot but chronic, clear mucus. Breathing normally, a little SOB with activity but nothing new either. Eating and drinking normally. Was down to 158 lbs 2 weeks ago. Drinking orange keny Body Armor HISTORIES FAMILY HISTORY Problem Relation Age of Onset Hypertension Mother Stroke Mother other (DIVERTICULITIS) Mother Heart Father Hypertension Father Colon Cancer Sister age 48-50 Diabetes Maternal Grandmother Thyroid Sister X-2 Thyroid Child 2 Daughters Asthma No Family History Allergies No Family History PAST MEDICAL HISTORY Diagnosis Date Allergic rhinitis due to animal hair and dander + testing dander, dust, outside. [facility]. Arthritis of both knees 03/04/2012 CKD (chronic kidney disease), stage III (HCC) Degeneration of intervertebral disc, site unspecified Degenerative arthritis of hip 03/04/2012 Diverticulosis of colon (without mention of hemorrhage) Endometriosis Family history of malignant neoplasm of gastrointestinal tract Hyperlipidemia Hypertension Internal hemorrhoids without mention of complication Other specified gastritis Unspecified hypothyroidism PAST SURGICAL HISTORY Procedure Laterality Date ARTHRP ACETBLR/PROX FEM PROSTC AGRFT/ALGRFT 2012 Left Hip ARTHRP ACETBLR/PROX FEM PROSTC AGRFT/ALGRFT Right 01/21/2017 Dr. Reid COLONOSCOPY FLX DX W/COLLJ SPEC WHEN PFRMD 12/16/08 DILATION & CURETTAGE DX&/THER NONOBSTETRIC 1969' multiple LAMINECTOMY W/O FFD > 2 VERT SEG LUMBAR 2009 titanium chris PAST SURGICAL HISTORY OF 2001 FOOT SURGERY PAST SURGICAL HISTORY OF Jan 2004 Dr. Mclean - Back Surgery-upper back - metal rods and cadaver bone TOTAL ABDOMINAL HYSTERECT W/WO RMVL TUBE OVARY 1986 Hysterectomy, ANDREW/BSO Social History Tobacco Use Smoking status: Former Types: Cigarettes Smokeless tobacco: Never Tobacco comments: None since age 20s. No smoking in childhood home. Spouse of 56 years stopped smoking 1974. Vaping Use Vaping Use: Never used Substance Use Topics Alcohol use: No Drug use: No ACTIVE PROBLEM LIST Hypothyroidism Backache, Unspecified Essential Hypertension, Benign Hyperlipidemia Gerd (Gastroesophageal Reflux Disease) Lumbar Disc Prolapse With Compression Radiculopathy Vitamin D Deficiency Viral Exanthem Other Specified Erythematous Condition(865.32) Pruritus Xerosis Cutis Pityriasis rosea: atypical Arthritis of Both Knees Degenerative Arthritis of Hip Pain in Joint, Pelvic Region and Thigh S/P Hip Replacement TMJ Dysfunction Mixed Anxiety Depressive Disorder Allergic Rhinitis Due to Animal Hair and Dander Obesity, Class I, Bmi 30-34.9 Chronic Pain of Left Knee Primary Osteoarthritis of Left Knee Rex (Acute Kidney Injury) (Hcc) Cll (Chronic Lymphocytic Leukemia) (Hcc) Ckd (Chronic Kidney Disease), Stage Iii (Hcc) Seborrheic Keratoses Current Outpatient Medications Medication Sig Dispense Refill levothyroxine (SYNTHROID) 137 mcg tablet take 1 tablet by mouth once daily ON AN EMPTY STOMACH FOR THYROID 90 tablet 3 ibrutinib (IMBRUVICA) 140 mg capsule Take 2 capsules (280 mg) by mouth once daily. [address] (PROTONIX) 40 mg tablet Take 1 tablet by mouth once daily. 180 tablet 1 acetaminophen (TYLENOL ARTHRITIS ORAL) Take by mouth as needed. allopurinol (ZYLOPRIM) 100 mg tablet take 1 tablet by mouth once daily 90 tablet 3 losartan (COZAAR) 100 mg tablet Take 1 tablet by mouth once daily. 90 tablet 3 escitalopram oxalate (LEXAPRO) 10 mg tablet Take 1 tablet by mouth once daily. 90 tablet 3 hydroCHLOROthiazide (HYDRODIURIL, ESIDRIX) 25 mg tablet Take 1 tablet by mouth once daily. 90 tablet 3 Oxyquinoline-Na Lauryl Sulfate (TRIMO-SCHUSTER JELLY) 0.025-0.01 % gel Use 1 Inch vaginally two times a week. 1 Tube 2 cetirizine (ZYRTEC) 10 mg tablet Take 10 mg by mouth once daily. OTC PRODUCT Plexus nerve, 2 capsules every night Current Facility-Administered Medications Medication Dose Route Frequency Provider Last Rate Last Admin perflutren lipid microspheres 1.3 mL in NaCl (PF) 0.9% 10 mL injection (DEFINITY) INTRAVENOUS DIRECTED PRN Urban Kruger APRN.TRACE KOHLER sodium chloride 0.9 % (flush) 10 mL (BD POSIFLUSH) 10 mL INTRAVENOUS DIRECTED PRN Urban Kruger APRN.TRACE KOHLER DTAP,TDAP,TD(1 - Tdap) Never done COVID-19 VACCINE(4 - Booster for Pfizer series) due on 12/16/2020 ADVANCE DIRECTIVE DISCUSSION Never done EXAM: BP 142/66 Pulse 71 Temp 36.8 C (98.3 F) (Tympanic) Resp 24 Wt 74.8 kg (165 lb) SpO2 96% BMI 32.22 kg/m Pleasant overweight adult woman in no acute distress. Alert and oriented all spheres. Normal affectand cognition. Speech normal. No deficits to learning or comprehension. Skin warm, dry, pink to lips and nailbeds. Normal turgor. Respirations regular and unlabored. HEENT: NCAT. No scleral icterus or conjunctival injection. TM's clear. Nose and oropharynx free from injection or lesion. Oral membranes moist and pink, no pharyngeal erythema or exudates. Right subtonsillar node 1/4+ shoddy. No other cervical lymph nodes. Thyroid non-tender, no masses, or enlargement. Carotids pulses 2+/4+ without bruits. No JVD with HOB at 30 degrees. Chest is normal shape. Lungs are clear to all loza with good air exchange through out. Dry crackles in right base. HRRR without murmur or gallop. No lifts, heaves, or rubs. Extrem: no clubbing or cyanosis. Edema: none. Extremities are warm and pink with prompt capillary refill. ASSESSMENT/PLAN: 1. 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 Identifies fatigue is overwhelming. Suspect combination of bronchitis, CLL/chemo, depression - XR CHEST 2V FRONTAL/LAT - CBC + DIFF - COMP METABOLIC PANEL 2. Fatigue, unspecified type - ICD9: 780.79, ICD10: R53.83 - CBC + DIFF - COMP METABOLIC PANEL 3. Acute cough - ICD9: 786.2, ICD10: R05.1 - XR CHEST 2V FRONTAL/LAT 4. CLL (chronic lymphocytic leukemia) (HCC) - ICD9: 204.10, ICD10: C91.[address] Salas, CBC appears stable 5. Mixed anxiety depressive disorder - ICD9: 300.4, ICD10: F41.8 Will notify results as available. Hans Webb PA-C documented in this encounterCleveland Clinic Foundation09-16-2022 Miscellaneous Notes* Telephone Encounter - Jane Baig APRN.CNP - 11/10/2021 4:09 PM EDT See appt notes. Jane Baig APRN.CNP * Telephone Encounter - Marcio Padron LPN - 11/10/2021 8:29 AM EDT Pt scheduled for follow up this afternoon. Marcio Padron LPN * Telephone Encounter - Michelle Reveles LPN - 11/08/2021 3:57 PM EDT Left message to return call * Telephone Encounter - Jane Baig APRN.CNP - 11/08/2021 3:44 PM EDT Records reviewed. Can we please check status of patient and see how she is doing? Jane Baig APRN.CNP * Telephone Encounter - Marcio Padron LPN - 11/08/2021 10:32 AM EDT Records printed and given to provider for further review. Pt is currently scheduled for covid follow up with PROCESS PROJECT ENGINEER on Saturday. Marcio Padron LPN * Telephone Encounter - Jane Baig APRN.CNP - 11/07/2021 3:15 PM EDT Please get hospital records. Continue to do exactly what he is doing. She can continue the mucinex or robitussin and tylenol as needed. Make sure to continue to stay well hydrated. Return to ER if there are any new/worsening symptoms. * Telephone Encounter - Veronique Galvan LPN - 11/07/2021 2:59 PM EDT Patient Olvin calling he took her to [facility] ER early this morning. Tests were negative no pneumonia. He is giving her Mucinex DM, Robitussin DM, Tylenol every 6 hours, her temp is 99.5 to 100 andher SPO2 has been 97%. Today he got her to eat toast and applesauce. said Dr Salas sent order for monoclonial antibody infusion to [facility]. He said could be 1 to 4 days before she gets that. asking if anything else he should be doing? Please advise documented in this encounterCleveland Clinic Foundation09-16-2022 History of Present illness Narrative* Jane Baig, ERA.GOLF BALL WINDER - 11/10/2021 2:20 PM EDT Chief Complaint Patient presents with: Telemedicine Patient was offered a virtual/telemedicine appointment in lieu of an office visit due to recommendations to reduce patient exposure to COVID-19. Phone was used for evaluation of this patient. Patient is aware of limitations of performing the visit without a face to face visit in the office setting and agrees. Patient agrees to the visit: Yes Patient Location: [facility] Marcelo Gonzalez is a 76 year old female who is contacted today for a phone visit This is an established patient of Dr. Harrison primary care provider on file. Reports: covid follow-up. Pt presents today for covid follow-up. She had the monoclonal antibodies on Saturday. Refers that she continues with cough and being fatigued. She did eat a little breakfast and lunch today. Drinking liquids. No fevers/chills. She is not coughing anything up. Had diarrhea yesterday that she reports is from the UTI medication she is taking. She is taking medication for nausea, which helps. Refers that her breathing feels normal -- refers that oxygen level 96%. I just feel like I have a bad cold. Denies pain. She is urinating okay. She is taking mucinex for the cough. Refers that it does seem like symptoms are getting a little better. Past medical history, appointments, medications, allergies reviewed 11/10/2021 Previous Medical History PAST MEDICAL HISTORY Diagnosis Date Allergic rhinitis due to animal hair and dander + testing dander, dust, outside. [facility]. Arthritis of both knees 03/04/2012 CKD (chronic kidney disease), stage III (HCC) Degeneration of intervertebral disc, site unspecified Degenerative arthritis of hip 03/04/2012 Diverticulosis of colon (without mention of hemorrhage) Endometriosis Family history of malignant neoplasm of gastrointestinal tract Hyperlipidemia Hypertension Internal hemorrhoids without mention of complication Other specified gastritis Unspecified hypothyroidism Previous Surgical History PAST SURGICAL HISTORY Procedure Laterality Date ARTHRP ACETBLR/PROX FEM PROSTC AGRFT/ALGRFT 2012 Left Hip ARTHRP ACETBLR/PROX FEM PROSTC AGRFT/ALGRFT Right 01/21/2017 Dr. Reid COLONOSCOPY FLX DX W/COLLJ SPEC WHEN PFRMD 12/16/08 DILATION & CURETTAGE DX&/THER NONOBSTETRIC multiple LAMINECTOMY W/O FFD > 2 VERT SEG LUMBAR 2009 titanium chris PAST SURGICAL HISTORY OF 2001 FOOT SURGERY PAST SURGICAL HISTORY OF Jan 2004 Dr. Mclean - Back Surgery-upper back - metal rods and cadaver bone TOTAL ABDOMINAL HYSTERECT W/WO RMVL TUBE OVARY 1986 Hysterectomy, ANDREW/BSO Family History FAMILY HISTORY Problem Relation Age of Onset Hypertension Mother Stroke Mother other (DIVERTICULITIS) Mother Heart Father Hypertension Father Colon Cancer Sister age 48-50 Diabetes Maternal Grandmother Thyroid Sister X-2 Thyroid Child 2 Daughters Asthma No Family History Allergies No Family History Patient Allergies ALLERGIES Allergen Reactions Lyrica [Pregabalin] Mental Status Change Penicillins Hives Amoxicillin GI Upset Codeine Rash Doxycycline Hcl GI Upset Fentanyl Rash Keflex [Cephalexin] Latex Lisinopril Cough Meloxicam Hives Mirapex [Pramipexol* Rash Oxycodone Hives Sulfa (Sulfonamide * Hives Trazodone (Bulk) Mental Status Change hallucinates Ultram [Tramadol Hc* Versed [Midazolam H* Rash Zetia [Ezetimibe] Current Medications Current Outpatient Medications on File Prior to Visit Medication Sig ibrutinib (IMBRUVICA) 140 mg capsule Take 2 capsules (280 mg) by mouth once daily. pantoprazole DR (PROTONIX) 40 mg tablet Take 1 tablet by mouth once daily. acetaminophen (TYLENOL ARTHRITIS ORAL) Take by mouth as needed. allopurinol (ZYLOPRIM) 100 mg tablet take 1 tablet by mouth once daily levothyroxine (SYNTHROID) 137 mcg tablet Take 1 tablet by mouth once daily. Take on empty stomach. For thyroid. losartan (COZAAR) 100 mg tablet Take 1 tablet by mouth once daily. escitalopram oxalate (LEXAPRO) 10 mg tablet Take 1 tablet by mouth once daily. hydroCHLOROthiazide (HYDRODIURIL, ESIDRIX) 25 mg tablet Take 1 tablet by mouth once daily. Oxyquinoline-Na Lauryl Sulfate (TRIMO-SCHUSTER JELLY) 0.025-0.01 % gel Use 1 Inch vaginally two times a week. cetirizine (ZYRTEC) 10 mg tablet Take 10 mg by mouth once daily. OTC PRODUCT Plexus nerve, 2 capsules every night Current Facility-Administered Medications on File Prior to Visit Medication perflutren lipid microspheres 1.3 mL in NaCl (PF) 0.9% 10 mL injection (DEFINITY) sodium chloride 0.9 % (flush) 10 mL (BD POSIFLUSH) Social History Social History Tobacco Use Smoking status: Former Types: Cigarettes Smokeless tobacco: Never Tobacco comments: None since age 20s. No smoking in childhood home. Spouse of 56 years stopped smoking 1974. Vaping Use Vaping Use: Never used Substance Use Topics Alcohol use: No Drug use: No EXAM: There were no vitals taken for this visit. Limited exam as visit was completed over the phone platform. Patient sounds ill: Yes Patient is unable to speak in complete sentences: No Patient has labored breathing: No. Patient is audibly coughing: Yes Psych: Attitude - cooperative, easily engaged in conversation Health Maintenance List DTAP,TDAP,TD(1 - Tdap) Never done COVID-19 VACCINE(4 - Booster for Pfizer series) due on 01/13/2021 ADVANCE DIRECTIVE DISCUSSION Never done INFLUENZA(1) due on 10/26/2021 BP CONTROLLED (<130/80) due on 09/15/2022 SERUM CREATININE due on 11/01/2022 HEMOGLOBIN/HEMATOCRIT due on 11/01/2022 ANNUAL PCP TEAM CHRONIC DISEASE VISIT due on 11/06/2022 DIABETES SCREEN due on 11/01/2024 BONE DENSITY Completed HEPATITIS C SCREENING Completed SHINGRIX VACCINE Completed PNEUMOCOCCAL: 65+ Completed Data reviewed Last 5 Encounter BP Readings: Date: BP: 09/15/2021 124/70 09/06/2021 136/68 07/27/2021 120/68 07/11/2021 137/65 06/13/2021 144/82 BMI Readings from Last 5 Encounters: 09/15/21 : 32.81 kg/m 09/06/21 : 32.84 kg/m 07/27/21 : 33.52 kg/m 07/11/21 : 34.10 kg/m 06/13/21 : 33.91 kg/m Last 5 Encounter Wt Readings: Date: Wt: 09/15/2021 76.2 kg (168 lb) 09/06/2021 76.9 kg (169 lb 8 oz) 07/27/2021 78.5 kg (173 lb) 07/11/2021 79.8 kg (176 lb) 06/13/2021 79.4 kg (175 lb) Medication and allergy list reviewed, reconciled and updated 11/10/2021 ASSESSMENT/PLAN: 1. COVID-19 - ICD9: 079.89, ICD10: U07.1 Had the monoclonal antibody infusion. She is encouraged to stay well-hydrated. She can continue Mucinex as needed. She should continue to monitor her oxygen level and return to ER if drops or she develops CP/SOB. She is aware to notify provider if symptoms do not continue to improve or if worsens. Discussed treatment plan and patient voices understanding. Patient's questions answered appropriately. Medications and potential side effects were discussed and patient voices understanding. Return to the office as scheduled or as needed for worsening/no improvement. Jane Baig APRN.EDITA Total appointment time on phone with patient = 5-10 minutes documented in this encounterCleveland Clinic Foundation09-13-2022 Miscellaneous Notes* Telephone Encounter - Cathy Lawton RN - 11/07/2021 1:38 PM EDT Patients daughter called in with concerns regarding her mother and asked if we could speed up the process of getting patient scheduled for monoclonal antibodies. Called [facility] and left a message with patients name, , contact information, and the rest of the information requested on the message. Direct number was left for [facility] to call if needed. Daughter instructed to take patient back to ED if shedevelops worsening symptoms as directed by Dr. Salas instead of waiting for the monoclonal antibodyinfusion. Daughter stated understanding of this. Provided active listening and emotional support todaughter. Cathy Lawton RN * Telephone Encounter - Alejo Salas DO - 11/07/2021 12:44 PM EDT Agree, needs to go back to ED for any decline in respiratory status, or increase in cough or fever. Alejo Salas DO * Telephone Encounter - Cathy Lawton RN - 11/07/2021 10:50 AM EDT Images from the original note were not included. Spoke to and informed him that patient did test positive for COVID. Patients COVID result and monoclonal antibody order was faxed to [facility] this morning and informed he should hear from the hospital to schedule within 1-3 business days. stated he took patient to [facility] ED this AM d/t her breathing and I was worried about pneumonia. Patient was evaluated, labs and EKG were unremarkable, CT and CXR obtained, copied below. Patient was discharged home without medications. instructed to take patient back to the ED if shedevelops worsening SOB, difficulty breathing, cough, or worsening symptoms. Patient has a pulse oximeter at home, advised to continue monitoring and take patient to the ED if her oxygen is below 90%. stated understanding. Cathy Lawton RN documented in this encounterCleveland Clinic Foundation09-13-2022 Miscellaneous Notes* Telephone Encounter - Cathy Lawton RN - 11/07/2021 9:46 AM EDT COVID test result and monoclonal antibody order form faxed to [facility]. Cathy Lawton RN * Telephone Encounter - Shanon Car Pss - 11/06/2021 10:59 AM EDT Called patient, she was scheduled through my chart per her daughter. * Telephone Encounter - Consuelo Crenshaw LPN - 11/06/2021 10:49 AM EDT Please schedule pt. At urgent care for Covid test and notify pt. Consuelo Crenshaw LPN * Telephone Encounter - Alejo Salas DO - 11/06/2021 10:41 AM EDT Order filed. Alejo Salas DO * Telephone Encounter - Cathy Lawton RN - 11/06/2021 10:20 AM EDT Spoke to patient. Patient stated she got her influenza vaccine last Saturday and on Saturday she developed fever, chills, body aches, headache, constant cough, and new symptoms are 2 episodes of emesis that started yesterday evening. Patient stated she vomited after taking tylenol and then the second episode happened shortly after omeprazole. Patient stated she does not have any anti-emetics to take at home, she does not feel nauseous. Patient denies diarrhea, wheezing, chest discomfort, breathing concerns, or SOB. Patient informed she is not a candidate for paxlovid, she is a candidate for monoclonal antibody infusion however we would need a documented COVID test that [facility] can [facility]. Patient aware Dr. Salas will need to place the order and then our office will contact her to schedule an appointment for testing. Patient stated understanding of this. Cathy Lawton RN documented in this encounterCleveland Clinic Foundation09-12-2022 History of Present illness Narrative* Jane Baig APRN.GOLF BALL WINDER - 11/06/2021 2:00 PM EDT Chief Complaint No chief complaint on file. Patient was offered a virtual/telemedicine appointment in lieu of an office visit due to recommendations to reduce patient exposure to COVID-19. Phone was used for evaluation of this patient. Patient is aware of limitations of performing the visit without a face to face visit in the office setting and agrees. Patient agrees to the visit: Yes Patient Location: [facility] Marcelo Gonzalez is a 76 year old female who is contacted today for a phone visit This is an established patient of Dr. Harrison primary care provider on file. Reports: She started having covid symptoms on Saturday night. T - 102 (max), + chills, headaches, body aches, ear aches. T has been staying around 99 now. Vomited this morning. No vomiting since. No diarrhea. She is drinking gingerale, water, and pedialyte. Some congestion. + headache. + cough. Expectorated some pale yellow mucus this morning, none since. + loss of taste. Unsure about smell. + body aches. O2 sat 91% - 98% RA. 97% during phone visit. Pulse -- 74. No SOB/chest pain. Pt reports that she unknowingly was around someone with covid the weekend prior to symptoms onset. She did take tylenol this morning for symptoms, but she reports that she vomited it back up. She did a home covid test yesterday morning and it was positive. She is currently under cancer treatment. She did reach out to her oncology office this morning. She came in for a PCR test today. The plan will be for monoclonal antibodies once PCR results. Past medical history, appointments, medications, allergies reviewed 11/06/2021 Previous Medical History PAST MEDICAL HISTORY Diagnosis Date Allergic rhinitis due to animal hair and dander + testing dander, dust, outside. [facility]. Arthritis of both knees 03/04/2012 CKD (chronic kidney disease), stage III (HCC) Degeneration of intervertebral disc, site unspecified Degenerative arthritis of hip 03/04/2012 Diverticulosis of colon (without mention of hemorrhage) Endometriosis Family history of malignant neoplasm of gastrointestinal tract Hyperlipidemia Hypertension Internal hemorrhoids without mention of complication Other specified gastritis Unspecified hypothyroidism Previous Surgical History PAST SURGICAL HISTORY Procedure Laterality Date ARTHRP ACETBLR/PROX FEM PROSTC AGRFT/ALGRFT 2012 Left Hip ARTHRP ACETBLR/PROX FEM PROSTC AGRFT/ALGRFT Right 01/21/2017 Dr. Reid COLONOSCOPY FLX DX W/COLLJ SPEC WHEN PFRMD 12/16/08 DILATION & CURETTAGE DX&/THER NONOBSTETRIC 1969's multiple LAMINECTOMY W/O FFD > 2 VERT SEG LUMBAR 2009 titanium chris PAST SURGICAL HISTORY OF 2001 FOOT SURGERY PAST SURGICAL HISTORY OF Jan 2004 Dr. Mclean - Back Surgery-upper back - metal rods and cadaver bone TOTAL ABDOMINAL HYSTERECT W/WO RMVL TUBE OVARY 1986 Hysterectomy, ANDREW/BSO Family History FAMILY HISTORY Problem Relation Age of Onset Hypertension Mother Stroke Mother other (DIVERTICULITIS) Mother Heart Father Hypertension Father Colon Cancer Sister age 48-50 Diabetes Maternal Grandmother Thyroid Sister X-2 Thyroid Child 2 Daughters Asthma No Family History Allergies No Family History Patient Allergies ALLERGIES Allergen Reactions Lyrica [Pregabalin] Mental Status Change Penicillins Hives Amoxicillin GI Upset Codeine Rash Doxycycline Hcl GI Upset Fentanyl Rash Keflex [Cephalexin] Latex Lisinopril Cough Meloxicam Hives Mirapex [Pramipexol* Rash Oxycodone Hives Sulfa (Sulfonamide * Hives Trazodone (Bulk) Mental Status Change hallucinates Ultram [Tramadol Hc* Versed [Midazolam H* Rash Zetia [Ezetimibe] Current Medications Current Outpatient Medications on File Prior to Visit Medication Sig ibrutinib (IMBRUVICA) 140 mg capsule Take 2 capsules (280 mg) by mouth once daily. pantoprazole DR (PROTONIX) 40 mg tablet Take 1 tablet by mouth once daily. acetaminophen (TYLENOL ARTHRITIS ORAL) Take by mouth as needed. allopurinol (ZYLOPRIM) 100 mg tablet take 1 tablet by mouth once daily levothyroxine (SYNTHROID) 137 mcg tablet Take 1 tablet by mouth once daily. Take on empty stomach. For thyroid. losartan (COZAAR) 100 mg tablet Take 1 tablet by mouth once daily. escitalopram oxalate (LEXAPRO) 10 mg tablet Take 1 tablet by mouth once daily. hydroCHLOROthiazide (HYDRODIURIL, ESIDRIX) 25 mg tablet Take 1 tablet by mouth once daily. Oxyquinoline-Na Lauryl Sulfate (TRIMO-SCHUSTER JELLY) 0.025-0.01 % gel Use 1 Inch vaginally two times a week. cetirizine (ZYRTEC) 10 mg tablet Take 10 mg by mouth once daily. OTC PRODUCT Plexus nerve, 2 capsules every night Current Facility-Administered Medications on File Prior to Visit Medication perflutren lipid microspheres 1.3 mL in NaCl (PF) 0.9% 10 mL injection (DEFINITY) sodium chloride 0.9 % (flush) 10 mL (BD POSIFLUSH) Social History Social History Tobacco Use Smoking status: Former Types: Cigarettes Smokeless tobacco: Never Tobacco comments: None since age 20s. No smoking in childhood home. Spouse of 56 years stopped smoking 1974. Vaping Use Vaping Use: Never used Substance Use Topics Alcohol use: No Drug use: No EXAM: There were no vitals taken for this visit. Limited exam as visit was completed over the phone platform. Patient sounds or appears ill: Yes Patient is unable to speak in complete sentences: No Patient has labored breathing: No. Patient is audibly coughing: Yes Psych: Attitude - cooperative, easily engaged in conversation Health Maintenance List DTAP,TDAP,TD(1 - Tdap) Never done COVID-19 VACCINE(4 - Booster for Pfizer series) due on 01/13/2021 ADVANCE DIRECTIVE DISCUSSION Never done INFLUENZA(1) due on 10/26/2021 ANNUAL PCP TEAM CHRONIC DISEASE VISIT due on 09/15/2022 BP CONTROLLED (<130/80) due on 09/15/2022 SERUM CREATININE due on 11/01/2022 HEMOGLOBIN/HEMATOCRIT due on 11/01/2022 DIABETES SCREEN due on 11/01/2024 BONE DENSITY Completed HEPATITIS C SCREENING Completed SHINGRIX VACCINE Completed PNEUMOCOCCAL: 65+ Completed Data reviewed Last 5 Encounter BP Readings: Date: BP: 09/15/2021 124/70 09/06/2021 136/68 07/27/2021 120/68 07/11/2021 137/65 06/13/2021 144/82 BMI Readings from Last 5 Encounters: 09/15/21 : 32.81 kg/m 09/06/21 : 32.84 kg/m 07/27/21 : 33.52 kg/m 07/11/21 : 34.10 kg/m 06/13/21 : 33.91 kg/m Last 5 Encounter Wt Readings: Date: Wt: 09/15/2021 76.2 kg (168 lb) 09/06/2021 76.9 kg (169 lb 8 oz) 07/27/2021 78.5 kg (173 lb) 07/11/2021 79.8 kg (176 lb) 06/13/2021 79.4 kg (175 lb) Medication and allergy list reviewed, reconciled and updated 11/06/2021 ASSESSMENT/PLAN: 1. COVID-19 - ICD9: 079.89, ICD10: U07.1 Patient with COVID symptoms and positive home COVID test. She is already reached out to her oncology office. She was into urgent care earlier today for PCR testing. The plan will be for monoclonal antibodies once resulted. She is taking Tylenol for her symptoms. She is encouraged to stay well-hydrated. She is not vomited since this morning and has been keeping liquids down. She can also use Robitussin or Mucinex as needed for cough/congestion. She is aware that if she gets any worsening symptoms, shortness of breath, chest pain, etc., she isto proceed to the emergency room. Discussed isolation guidelines. We will plan a phone call follow-up on Saturday. Patient is aware to notify us sooner if she needs anything. Discussed treatment plan and patient voices understanding. Patient's questions answered appropriately. Medications and potential side effects were discussed and patient voices understanding. Return to the office as scheduled or as needed for worsening/no improvement. Total appointment time on phone with patient = 11-20 minutes Jane Baig APRN.CNP documented in this encounterCleveland Clinic Foundation09-12-2022 Miscellaneous Notes* Telephone Encounter - Jane Baig APRN.CNP - 11/06/2021 12:40 PM EDT Will call, as scheduled. Jane Baig APRN.CNP * Telephone Encounter - Shanon Dorsey - 11/06/2021 11:44 AM EDT Appt added back on. * Telephone Encounter - Cristina Taylor APRN.CNP - 11/06/2021 11:34 AM EDT We did not want the to cancel the appt. today. Can she please be put back on the schedule at 2pm? I've sent this message to our PSR's. Thank you. Cristina Taylor APRN.[employer] * Telephone Encounter - Donna Nix RN - 11/06/2021 11:20 AM EDT (Olvin) calls to let provider know that Dr. Salas wouldn't recommend the Paxlovid. requests phone call visit be canceled. Canceled per request. Donna Nix RN * Telephone Encounter - Laya Vgea RN - 11/06/2021 8:25 AM EDT Patient's Olvin calling with patient in background. Patient tested postive for covid yesterday 11/05. Symptoms began on 11/03. Has been vaccinated and boostered. Patient interested in Paxlovid. Unable to do VV appt. Patient is on cancer medication and sees Cristina Taylor in hematology-their office has been contacted this morning as well for update and for possible treatment direction. Patient's symptoms include temp of 100.2 at 6am this morning, cough, headache, fatigue, and decreased appetite. Denies SOB, chest pain, back pain, vomiting, diarrhea or other symptoms. Using tylenol intermittently. Phone Call visit appt made for patient with Jane Baig today at 2pm. Will send this message to Jane for review/update. Thank you. documented in this encounterCleveland Clinic Foundation08-03-2022 Miscellaneous Notes* Telephone Encounter - Jaquelin Vitale RN - 09/27/2021 6:48 PM EDT Spoke with patient. Given message from provider's office. Patient verbalizes understanding. Jaquelin Vitale RN * Telephone Encounter - Kat Arguello Ma - 09/27/2021 6:37 PM EDT Left detailed message on confidential vm Kat Arguello Ma * Telephone Encounter - Jane Baig APRN.CNP - 09/27/2021 6:06 PM EDT Can please let patient know that we did review received the updated stress test results that she had done at [facility]. It was normal. documented in this encounterCleveland Clinic Foundation07-22-2022 Instructions* Patient Instructions* Jane Baig APRN.CNP - 09/15/2021 9:05 AM EDT 1. Continue the same medication. 2. Get labwork done (thyroid and cholesterol). 3. I'll let you know when I verify information w/ [facility]. 4. Get established with a new primary care. documented in this encounterCleveland Clinic Foundation07-22-2022 History of Present illness Narrative* Jane Baig APRN.CNP - 09/15/2021 8:23 AM EDT This is a 75 year old female who presents today with: Patient presents with: Established Patient: [facility] hospital follow up- chest pains, possible anxiety or acid reflux HISTORY OF PRESENT ILLNESS: Marcelo Gonzalez is a 75 year old female. Patient presents with: Established Patient: [facility] hospital follow up- chest pains, possible anxiety or acid reflux Pt presents today for hospital follow-up. She went to the ER on 08/31/21 w/ complaint of chest pain. Refers that she had a couple of episodes of pain that day that lasted 5-10 minutes. Per the emergency room notes, she did have radiation to her jaw as well as some shortness of breath with each episode. She did have some relief of the pain with nitroglycerin and was given aspirin by the EMS. Refers that her daughters wanted her to go to ER via ambulance. She was admitted to the ER and had a stress test the following day. She was discharged the following day. Has had not had any further episodes of pain. No SOB. She continues on the pantoprazole. No recent trouble w/ heartburn/indigestion. She has some stressors, particularly with her family, but she reports that the stressors are not out of control and does not feel that anxiety is out of control. Per patient, she was previously evaluated by cardiology in June due to bradycardia. There was a -24-hour Holter monitor, however the results of this are unavailable at this time. Per patient, she was cleared. Records obtained by nursing from [facility]. There were conflicting stress test results obtained. One result reports that patient was an 86-year-old female with A. fib. One result indicates that she is an 89-year-old female with chest pain and left arm with weakness with diaphoresis. PAST MEDICAL HISTORY: PAST MEDICAL HISTORY Diagnosis Date Allergic rhinitis due to animal hair and dander + testing dander, dust, outside. [facility]. Arthritis of both knees 03/04/2012 CKD (chronic kidney disease), stage III (HCC) Degeneration of intervertebral disc, site unspecified Degenerative arthritis of hip 03/04/2012 Diverticulosis of colon (without mention of hemorrhage) Endometriosis Family history of malignant neoplasm of gastrointestinal tract Hyperlipidemia Hypertension Internal hemorrhoids without mention of complication Other specified gastritis Unspecified hypothyroidism PAST SURGICAL HISTORY Procedure Laterality Date ARTHRP ACETBLR/PROX FEM PROSTC AGRFT/ALGRFT 2012 Left Hip ARTHRP ACETBLR/PROX FEM PROSTC AGRFT/ALGRFT Right 01/21/2017 Dr. Reid COLONOSCOPY FLX DX W/COLLJ SPEC WHEN PFRMD 12/16/08 DILATION & CURETTAGE DX&/THER NONOBSTETRIC 1969's multiple LAMINECTOMY W/O FFD > 2 VERT SEG LUMBAR 2009 titanium chris PAST SURGICAL HISTORY OF 2001 FOOT SURGERY PAST SURGICAL HISTORY OF Jan 2004 Dr. Mclean - Back Surgery-upper back - metal rods and cadaver bone TOTAL ABDOMINAL HYSTERECT W/WO RMVL TUBE OVARY 1986 Hysterectomy, ANDREW/BSO ALLERGIES Lyrica [Pregabalin], Penicillins, Amoxicillin, Codeine, Doxycycline Hcl, Fentanyl, Keflex[Cephalexin], Latex, Lisinopril, Meloxicam, Mirapex [Pramipexole], Oxycodone, Sulfa (Sulfonamide Antibiotics), Trazodone (Bulk), Ultram [Tramadol Hcl], Versed [Midazolam Hcl], and Zetia [Ezetimibe] MEDICATIONS Current Outpatient Medications Medication Sig pantoprazole DR (PROTONIX) 40 mg tablet Take 1 tablet by mouth once daily. ibrutinib (IMBRUVICA) 140 mg capsule Take 2 capsules (280 mg) by mouth once daily. acetaminophen (TYLENOL ARTHRITIS ORAL) Take by mouth as needed. allopurinol (ZYLOPRIM) 100 mg tablet take 1 tablet by mouth once daily levothyroxine (SYNTHROID) 137 mcg tablet Take 1 tablet by mouth once daily. Take on empty stomach. For thyroid. losartan (COZAAR) 100 mg tablet Take 1 tablet by mouth once daily. escitalopram oxalate (LEXAPRO) 10 mg tablet Take 1 tablet by mouth once daily. hydroCHLOROthiazide (HYDRODIURIL, ESIDRIX) 25 mg tablet Take 1 tablet by mouth once daily. Oxyquinoline-Na Lauryl Sulfate (TRIMO-SCHUSTER JELLY) 0.025-0.01 % gel Use 1 Inch vaginally two times a week. cetirizine (ZYRTEC) 10 mg tablet Take 10 mg by mouth once daily. OTC PRODUCT Plexus nerve, 2 capsules every night Current Facility-Administered Medications Medication Dose Route Frequency perflutren lipid microspheres 1.3 mL in NaCl (PF) 0.9% 10 mL injection (DEFINITY) INTRAVENOUS DIRECTED PRN sodium chloride 0.9 % (flush) 10 mL (BD POSIFLUSH) 10 mL INTRAVENOUS DIRECTED PRN FAMILY HISTORY Problem Relation Age of Onset Hypertension Mother Stroke Mother other (DIVERTICULITIS) Mother Heart Father Hypertension Father Colon Cancer Sister age 48-50 Diabetes Maternal Grandmother Thyroid Sister X-2 Thyroid Child 2 Daughters Asthma No Family History Allergies No Family History Social History Tobacco Use Smoking status: Former Smoker Types: Cigarettes Smokeless tobacco: Never Used Tobacco comment: None since age 20s. No smoking in childhood home. Spouse of 56 years stopped smoking 1974. Vaping Use Vaping Use: Never used Substance Use Topics Alcohol use: No Drug use: No EXAM: BP 124/70 (BP Site: Right Arm, BP Position: Sitting, BP Cuff Size: Large Adult) Pulse 68 Temp 36.9 C (98.4 F) Resp 12 Ht 152.4 cm (5') Wt 76.2 kg (168 lb) SpO2 97% BMI 32.81 kg/m PHYSICAL EXAM: General Appearance: Well appearing, alert, in no acute distress, well-hydrated, well nourished.. Skin: Skin color, texture, turgor normal, no suspicious rashes or lesions. Head: Normocephalic, no masses, lesions, tenderness or abnormalities. Eyes: Anicteric sclera. Pupils are equally round and reactive to light. Extraocular movements are intact. Oropharynx: Lips, mucosa, and tongue normal, teeth and gums normal, oropharynx normal. Neck: Supple, no adenopathy; thyroid symmetric, normal size, no bruits. Lungs: Lungs clear to auscultation. No wheezing, rhonchi, rales.. Heart: RRR without murmur, gallop, or rubs. No ectopy. Abdomen: Abdomen soft, non-tender. Bowel sounds normal. No masses, organomegaly. Extremities: No deformities, edema, skin discoloration, clubbing or cyanosis. Good capillary refill. Neurologic: Gait normal. ASSESSMENT/PLAN: 1. Chest pain, unspecified type - ICD9: 786.50, ICD10: R07.9 (primary diagnosis) No further episodes of chest pain since discharge from the hospital. I did reach out to [facility] regarding her stress test results and to try to have her results clarified and confirmed. We will get EKG today. - ECG COMPLETE 2. 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 - TSH BLD - T4 FREE/FREE THYROX 3. Hyperlipidemia, unspecified hyperlipidemia type - ICD9: 272.4, ICD10: E78.5 Due for updated lab work. - LIPID PANEL, NONFASTING 4. Mixed anxiety depressive disorder - ICD9: 300.4, ICD10: F41.8 She reports that this is controlled. Does not feel further intervention is needed at this time. 5. Gastroesophageal reflux disease, unspecified whether esophagitis present - ICD9: 530.81, ICD10: K21.9 Controlled with PPI. Discussed treatment plan and patient voices understanding. Patient's questions answered appropriately. Medications and potential side effects were discussed and patient voices understanding. Return to the office as scheduled or as needed for worsening/no improvement. Jane Baig APRN.CNP This note was partially generated using [employer] voice recognition system. Note was reviewed for accuracy. There may be minor misspellings or grammar miscues with [employer] voice recognition. documented in this encounterCleveland Clinic Foundation07-13-2022 History of Present illness Narrative* Cristina Taylor APRN.CNP - 09/06/2021 1:39 PM EDT Chief Complaint Patient presents with: Established Patient HPI: Marcelo Gonzalez is a 75 year old female who presents here today for follow up CLL. Per Dr. Salas's previous note: H/o essential hypertension, hyperlipidemia, GERD, hypothyroidism, osteoarthritis of the knees, degenerative disease of the lumbar spine and possibly RA. Patient was noted to have bilateral axillary adenopathy on a screening mammogram done 06/20/2020. Multiple axillary nodes were noted in the right breast posterior depth upper region and multiple axillary nodes were observed in the left breast posterior depth upper region. Multiple enlarged lymph nodes were observed in the left axilla on US. They had thickened cortexes. There was one enlarged lymph node in the right axilla on ultrasound. And ultrasound core needle biopsy of one of the left axillary lymph nodes was performed on 07/14/2020. 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 Current therapy: Began Imbruvica 09/14/20. Pt. called in c/o fatigue on 06/29/21-imbruvica dose lowered to [address] Salas. Pt. was admitted to [facility] August 31 for chest pain-cardiac work up neg. I had a panic attack. No new concerns today. Appetite:Good. I've been trying to cut back on eating. Wt. down 7# since 07/11/21 Energy level:I guess medium. Denies fevers. Mouth:denies sores Resp:denies cough or sob Cardiac:denies chest pain/palpitations GI:denies abd pain, n/v, moving bowels regularly-takes senna prn :denies dysuria/hematuria Extrem:chronic L knee pain-followed by Ortho-pt. had cortisone inj. a week or so ago that helped, denies pain elsewhere Neuro:denies symptoms of neuropathy Skin:denies rashes/lesions Heme:denies bleeding The ROS is otherwise negative. Past medical history, appointments, medications, allergies reviewed. No changes. EXAM: BP 136/68 Pulse 60 Temp 37.2 C (98.9 F) Wt 76.9 kg (169 lb 8 oz) SpO2 99% BMI 32.84 kg/m APPEARANCE Well appearing, alert, in no acute distress, well-hydrated, well nourished. HEART RRR with normal S1 and S2, no murmurs LUNG clear to auscultation LYMPH NODES No cervical lymphadenopathy, No supraclavicular lymphadenopathy and No axillary lymphadenopathy. ABDOMEN bowel sounds normoactive, soft, non-tender, non-distended, without organomegaly or palpablemasses EXTREMITIES No edema NEURO Awake, alert and oriented x 3, uses a cane and No involuntary motions. SKIN Skin color, texture, turgor normal, no suspicious rashes or lesions LABS: Component Latest Ref Rng & Units 06/13/2021 07/11/2021 08/08/2021 09/06/2021 WBC 3.70 - 11.00 k/uL 8.36 7.68 8.92 10.38 RBC 3.90 - 5.20 m/uL 3.76 (L) 3.77 (L) 3.87 (L) 3.84 (L) Hemoglobin 11.5 - 15.5 g/dL 11.8 11.9 12.1 11.8 Hematocrit 36.0 - 46.0 % 35.9 (L) 36.2 37.3 35.9 (L) MCV 80.0 - 100.0 fL 95.5 96.0 96.4 93.5 MCH 26.0 - 34.0 pg 31.4 31.6 31.3 30.7 MCHC 30.5 - 36.0 g/dL 32.9 32.9 32.4 32.9 RDW-CV 11.5 - 15.0 % 14.7 14.5 13.6 13.4 Platelet Count 150 - 400 k/uL 303 314 306 343 MPV 9.0 - 12.7 fL 11.0 10.5 10.6 10.3 Neut% % 59.8 62.4 63.3 62.9 Abs Neut (ANC) 1.45 - 7.50 k/uL 5.00 4.80 5.66 6.53 Lymph% % 22.4 21.0 21.1 22.5 Abs Lymph 1.00 - 4.00 k/uL 1.87 1.61 1.88 2.34 [place]% % 13.3 11.6 11.8 10.7 Abs [place] <0.87 k/uL 1.11 (H) 0.89 (H) 1.05 (H) 1.11 (H) Eosin% % 1.7 2.1 1.5 1.9 Abs Eosin <0.46 k/uL 0.14 0.16 0.13 0.20 Baso% % 2.0 2.1 1.7 1.3 Abs Baso <0.11 k/uL 0.17 (H) 0.16 (H) 0.15 (H) 0.13 (H) Immature Gran % % 0.8 0.8 0.6 0.7 IMMATURE GRANS (ABS) <0.10 k/uL 0.07 0.06 0.05 0.07 NRBC /100 WBC 0.0 0.0 0.0 0.0 Absolute nRBC <0.01 k/uL <0.01 <0.01 <0.01 <0.01 DTYPE Auto Auto Auto Auto CMP: Pending ASSESSMENT/PLAN: 1. CLL (chronic lymphocytic leukemia) ([facility]) - ICD9: 204.10, ICD10: C91.10 - Tolerating lower dose of imbruvica better-2 capsules daily. Energy improved. - Reviewed CBC with pt. and family members. - CMP pending. - Continue imbruvica 2 capsules daily. - Follow up with cardiology/ortho as scheduled. - CBC/CMP monthly. - Follow up in 3 months with CBC/CMP. - Pt. aware to call office with any questions/concerns. The patient indicates understanding of these issues and agrees with the plan. All documentation from previous visit of 07/11/21-Dr. Salas/myself was copied and pasted, documentation has been reviewed and edited as necessary for today's visit. Cristina Taylor APRN.CNP documented in this encounterCleveland Clinic Foundation07-12-2022 Miscellaneous Notes* Telephone Encounter - Consuelo Crenshaw LPN - 09/05/2021 4:31 PM EDT Pt. Scheduled for appt. Today 09/06, orders pended, please sign Consuelo Crenshaw LPN documented in this encounterCleveland Clinic Foundation06-22-2022 Miscellaneous Notes* Telephone Encounter - ABRAHAM Ward - 08/16/2021 2:31 PM EDT SOCIAL WORK FOLLOW UP NOTE: [facility] Date of service: August 16, 2021 Marcelo Gonzalez is being seen for a follow up social work visit. Today's visit includes: family TOPICS ADDRESSED: Finances; KIRAN spoke with patient's daughter regarding [facility]. KIRAN provided [facility] number to discuss concerns. No other needs identified. PLAN: Continue follow up as needed F/U APPOINTMENT: PRN Assigned KIRAN listed in Care Team tab: Yes, NA ABRAHAM Ward documented in this encounterCleveland Clinic Foundation06-22-2022 Miscellaneous Notes* Telephone Encounter - Cristina Taylor APRN.CNP - 08/16/2021 10:57 AM EDT Please see my chart message. Thank you. Cristina Taylor APRN.CNP documented in this encounterCleveland Clinic Foundation05-31-2022 Miscellaneous Notes* Telephone Encounter - Urban Kruger APRN.CNP, TRACE - 07/25/2021 9:49 PM EDT The following approved medication requests have been transmitted electronically. Pending Prescriptions Disp Refills PANTOPRAZOLE 40 MG TABLET,DELAYED RELEASE 180 tablet 1 Sig: Take 1 tablet by mouth once daily. GAYLE: No Urban Kruger APRN.[facility] KOHLER * Telephone Encounter - Kat Arguello Ma - 07/25/2021 2:23 PM EDT Patient last visit with PCP 06/13/21 Follow up appointment scheduled 12/13/21 Kat Arguello Ma * Telephone Encounter - Cathy Darling Pss - 07/25/2021 1:26 PM EDT Patient has been identified by name and date of : Yes Pending Prescriptions Disp Refills PANTOPRAZOLE 40 MG TABLET,DELAYED RELEASE 180 tablet 1 Sig: Take 1 tablet by mouth twice daily. GAYLE: No RX INSTRUCTIONS: Patient aware RX will be sent to pharmacy. No need to notify patient. Cathy Darling Pss documented in this encounterCleveland Clinic Foundation05-24-2022 Miscellaneous Notes* Telephone Encounter - Cristine Luu LPN - 07/18/2021 4:59 PM EDT Spoke with pt and information listed below given. Pt verbalizes understanding. Pt states she is notgoing to take it. Cristine Luu LPN * Telephone Encounter - Joana Dhaliwal RN - 07/18/2021 4:23 PM EDT Called and left a voicemail for the Patient to call back and ask for a nurse to receive the providers message. Joana Dhaliwal RN * Telephone Encounter - Urban JAY Kruger DNP - 07/18/2021 3:47 PM EDT Team - Inform the patient that it may interact with her Imbruvica. Her Imbruvica is metabolized primarily through the liver. From the research that I did it appears the Moringa - (M. Oleifera) may interferewith prescription drugs affecting cytochrome P450 (including CY) -which is the metabolism pathway of her Imbruvica also. Therefore I would not recommend taking that specific supplement. She can further discuss with Dr. Salas also. Urban Kruger APRN.CNP, DNP * Telephone Encounter - Joana Dhaliwal RN - 07/18/2021 2:37 PM EDT Pt called in and asked if she would be able to use the natural supplement Moringa, which is for arthritis. She did not know if it would react with any of her prescribed medications. Please call and advise. documented in this encounterCleveland Clinic Foundation05-17-2022 History of Present illness Narrative* Cristina Taylor APRN.CNP - 07/11/2021 9:50 AM EDT Chief Complaint Patient presents with: Established Patient HPI: Marcelo Gonzalez is a 75 year old female who presents here today for follow up CLL. Per Dr. Salas's previous note: H/o essential hypertension, hyperlipidemia, GERD, hypothyroidism, osteoarthritis of the knees, degenerative disease of the lumbar spine and possibly RA. Patient was noted to have bilateral axillary adenopathy on a screening mammogram done 06/20/2020. Multiple axillary nodes were noted in the right breast posterior depth upper region and multiple axillary nodes were observed in the left breast posterior depth upper region. Multiple enlarged lymph nodes were observed in the left axilla on US. They had thickened cortexes. There was one enlarged lymph node in the right axilla on ultrasound. And ultrasound core needle biopsy of one of the left axillary lymph nodes was performed on 07/14/2020. 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 Current therapy: Began Imbruvica 09/14/20. Pt. here today with family members. Pt. called in c/o fatigue on 06/29/21-imbruvica dose lowered to [address] Salas. I feel better taking two pills. Appetite:Good. Wt. stable. Energy level:Fair. Denies fevers. Mouth:denies sores Resp:occ. cough-stable, denies sob at rest, jones with steps Cardiac:denies chest pain/palpitations GI:denies abd pain, n/v, moving bowels regularly-takes senna prn :denies dysuria/hematuria Extrem:chronic L knee pain-followed by Ortho, denies pain elsewhere Neuro:denies symptoms of neuropathy Skin:denies rashes/lesions Heme:denies bleeding The ROS is otherwise negative. Past medical history, appointments, medications, allergies reviewed. No changes. EXAM: BP 137/65 Pulse (!) 59 Temp 36.9 C (98.5 F) Wt 79.8 kg (176 lb) SpO2 97% BMI 34.10 kg/m APPEARANCE Well appearing, alert, in no acute distress, well-hydrated, well nourished. HEART RRR with normal S1 and S2, no murmurs LUNG clear to auscultation LYMPH NODES No cervical lymphadenopathy, No supraclavicular lymphadenopathy and No axillary lymphadenopathy. ABDOMEN bowel sounds normoactive, soft, non-tender, non-distended, without organomegaly or palpablemasses EXTREMITIES No edema NEURO Awake, alert and oriented x 3, Normal gait and No involuntary motions. SKIN Skin color, texture, turgor normal, no suspicious rashes or lesions LABS: Component Latest Ref Rng & Units 04/17/2021 05/16/2021 06/13/2021 07/11/2021 WBC 3.70 - 11.00 k/uL 10.19 8.12 8.36 7.68 RBC 3.90 - 5.20 m/uL 3.81 (L) 3.58 (L) 3.76 (L) 3.77 (L) Hemoglobin 11.5 - 15.5 g/dL 12.0 11.4 (L) 11.8 11.9 Hematocrit 36.0 - 46.0 % 36.3 34.0 (L) 35.9 (L) 36.2 MCV 80.0 - 100.0 fL 95.3 95.0 95.5 96.0 MCH 26.0 - 34.0 pg 31.5 31.8 31.4 31.6 MCHC 30.5 - 36.0 g/dL 33.1 33.5 32.9 32.9 RDW-CV 11.5 - 15.0 % 14.1 14.3 14.7 14.5 Platelet Count 150 - 400 k/uL 303 279 303 314 MPV 9.0 - 12.7 fL 10.8 10.2 11.0 10.5 Neut% % 53.5 56.5 59.8 62.4 Abs Neut (ANC) 1.45 - 7.50 k/uL 5.45 4.60 5.00 4.80 Lymph% % 36.8 25.4 22.4 21.0 Abs Lymph 1.00 - 4.00 k/uL 3.75 2.06 1.87 1.61 [place]% % 8.8 13.8 13.3 11.6 Abs [place] <0.87 k/uL 0.90 (H) 1.12 (H) 1.11 (H) 0.89 (H) Eosin% % 0.0 1.4 1.7 2.1 Abs Eosin <0.46 k/uL 0.00 0.11 0.14 0.16 Baso% % 0.9 2.0 2.0 2.1 Abs Baso <0.11 k/uL 0.09 0.16 (H) 0.17 (H) 0.16 (H) Immature Gran % % 0.9 0.8 0.8 IMMATURE GRANS (ABS) <0.10 k/uL 0.07 0.07 0.06 NRBC /100 WBC 1 (H) 0.0 0.0 0.0 Absolute nRBC <0.01 k/uL <0.01 <0.01 <0.01 DTYPE Auto Auto Auto Ovalocytes Few Platelet Estimate Platelet estimate adequate Diff Type Manual Diff CMP: Pending ASSESSMENT/PLAN: 1. CLL (chronic lymphocytic leukemia) (HCC) - ICD9: 204.10, ICD10: C91.10 - Tolerating lower dose of imbruvica better-2 capsules daily. Energy improved. - Reviewed CBC with pt. and family members. - CMP pending. - Continue imbruvica 2 capsules daily. - Follow up with cardiology/ortho as scheduled. - Follow up in one month with CBC/CMP. - Pt. aware to call office with any questions/concerns. The patient indicates understanding of these issues and agrees with the plan. All documentation from previous visit of 05/16/21-Dr. Salas/myself was copied and pasted, documentation has been reviewed and edited as necessary for today's visit. Cristina Taylor APRN.CNP documented in this encounterCleveland Clinic Foundation05-11-2022 Miscellaneous Notes* Telephone Encounter - Urban Kruger APRN.TRACE KOHLER - 07/05/2021 12:12 PM EDT Noted. Urban Kruger APRN.CNP, DNP * Telephone Encounter - Shawna Crow - 07/05/2021 8:30 AM EDT Pt returned call. Offered to schedule appointment and pt said she did not want to do that. She willcall back if she decides to schedule an appointment to have her hand looked at. * Telephone Encounter - Marta Warner Cma - 07/05/2021 8:01 AM EDT Left message for patient to return call to office Marta Warner Cma * Telephone Encounter - Urban Kruger APRN.CNP, DNP - 07/04/2021 3:17 PM EDT Team - See if you can work her in to my schedule tomorrow or . Or Janet or Jane if I donot have an appt. Go to [facility] if symptoms worsen. Urban Kruger APRN.TRACE KOHLER * Telephone Encounter - Cathy Lawton RN - 07/04/2021 8:48 AM EDT Patient called stating on Saturday she woke up with a knot on top of my right hand, it stuck up pretty darn good. Patient stated the knot was near her wrist. Patient stated she had swelling on the back of my hand from her wrist to her knuckles. Patient stated she had redness and pain but thathas subsided and she is able to flex her fingers today. Per patient the knot has gone down but she still has some swelling in her right hand. Patient stated this AM she has new swelling in her left hand, redness on the back of her hand, and her thumb and first 2 fingers are swollen. Patient stated when she woke up this morning, her hand was numb and she couldn't bend her fingers. When she did try to bend her fingers she had 7/10 achingpain. Patient has been using ice on her left hand today b/c this is what helped alleviate her symptoms in her right hand and she has noticed a decrease in symptoms after applying ice. Patient also takes tylenol 1000 mg 1-2 times per day; patient does not feel the tylenol has helped alleviate the symptoms. Patient denies fever, or chills, or her skin being hot/warm to touch. Spoke to Dr. Salas who recommends that patient see her PCP for evaluation of a possible RA flare. Patient informed of this and stated understanding. Cathy Lawton RN documented in this encounterCleveland Clinic Foundation05-06-2022 Miscellaneous Notes* Telephone Encounter - Alejo Salas DO - 06/30/2021 4:49 PM EDT Thank you. Agree with multivitamin. Alejo Salas DO * Telephone Encounter - Judy Chakraborty RN - 06/30/2021 4:42 PM EDT Call to Krista, no answer. Call to patient, she is wondering if she is anemic. Reviewed labs with patient and Hgb not low. She states that she is so fatigued that she can't get things done around the house. She is aware that I spoke with Dr. Salas and he advises decreasing dose of Ibrutinib to 2 capsules daily. She is agreeable to this. She is also asking if taking a multivitamin would be ok? Informed that this would be ok. Patient aware that we will call her again next week and see if she is feeling better on the lower dose. Patient denies any further needs or concerns at this time. Sherry Chakraborty RN * Telephone Encounter - Judy Chakraborty RN - 06/29/2021 12:00 PM EDT Call to Krista, no answer. Left message to return phone call. Sherry Chakraborty RN * Telephone Encounter - Luci Syed Pss - 06/29/2021 11:11 AM EDT Daughter, Krista called stating patient has been having extreme fatigue and she is concerned. She isasking if patient could take a supplement. Daughter states to please call patient and advise. documented in this encounterCleveland Clinic Foundation04-22-2022 History of Present illness Narrative* Mei Olguin (Agricultural Service Worker) - 06/16/2021 11:14 AM EDT [facility] Ref[facility] Assessment Medication(s): Imbruvica Therapy continues to be appropriate for disease, patient response, and medical condition. Verification of therapeutic benefit and effectiveness with current therapy. Adverse events, barriers in adherence, and side effects assessed and addressed. Will proceed with refill with no changes. [facility] Assessment - Hematology/Oncology: Assessment to use: Refill Non-Clinical Assessment: Patient confirmed: Yes Med/dose confirmed: Yes Supplies needed: N/A Missed doses: No Estimated days supply on hand: 7 Copay amount: 0 Payment confirmed: Yes Address confirmed: Yes Delivery method: FedEx Delivery address: [address], [place] [address] Delivery date: 06/21/2021 Patient has questions: No Vaccination Assessment: Date of influenza vaccination reminder: 11/09/2020 Date of most recent vaccination assessment: 11/09/2020 Treatment Plan Information: Treatment Plan Information: 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 Admin/Storage: Take with glass of water at same time each day, avoid grapefruit/[place] oranges A/E: Cardiovascular effects,GI (diarrhea, constipation, abdominal pain, decreased appettite, dyspepsia, N/V, stomatitis), HTN, TLS, rash, anemia, neutropenia, thrombocytopenia, bruising, petechia, arthralgia, asthenia, muscle spasm, musculoskeetal pain Pt is on allopurinol D/I: Category C with lexapro-imbruvica may enhance antiplatelet effects of lexapro Lab: blood counts monthly or as clinically necessary renal and hepatic function uric acid levels as clinically necessary monitor blood pressure monitor for sign/symptoms of bleeding, infections, progressive multifocal encephalopathy, tumor lysis syndrome, second primary malignancies; signs/symptoms of cardiac arrhythmias and/or heart failure; ECG prior to initiation (patients with cardiac risk factors or history of cardiac arrhythmias) andduring therapy if clinically indicated Mei Olguin (Agricultural Service Worker) documented in this encounterCleveland Clinic Foundation04-19-2022 Instructions* Patient Instructions* Urban Kruger APRN.CNP, DNP - 06/13/2021 10:25 AM EDT Follow up with Urban Kruger APRN.CNP, DNP in 6 months Schedule echocardiogram Follow-up with [facility] on July 05 Lesions of the scalp is a seborrheic keratosis. If you would like to see dermatology call the office and I can coordinate/arrange referral Continue with current blood pressure medication and dosing. No changes today Continue follow-up with hematology Return to the clinic or seek care at [facility] for any worsening signs or symptoms: Healthy Habits: Recommend regular physical activity, nutrition and healthy eating habits. Consume a variety of foods every day focusing on fruits, vegetables and lean meats). Eat foods low in fat, saturated fat and cholesterol. Eat a limited amount of salt and sodium. Drink adequate amounts of water and limit sugary drinks. Exercise portion control in meal selection. Establish a mindset of a wellness approach to health. Thank you for allowing me to provide your care today. I look forward to seeing you again and maintaining your health. Urban Kruger APRN.TRACE KOHLER documented in this encounterCleveland Clinic Foundation04-19-2022 History of Present illness Narrative* Urban Kruger APRN.TRACE KOHLER - 06/13/2021 10:00 AM EDT Chief Complaint Patient presents with: F/U 6 months HPI Marcelo Gonzalez is a 75 year old female who presents here today for BP follow up. This is an established patient of Urban Kruger APRN.CNP, DNP. Denies any recent ER visits or hospitalizations. Specialty providers: Oncology: Dr. Salas and Cristina Taylor. HTN: Hx of hypertension which is controlled with hydrochlorothiazide 25 mg and losartan 100 mg. Blood pressures have been controlled in the past. She has had some variability of her blood pressures when she started her Imbruvica medication for CLL. Blood pressure has seemed to stabilize. She occasionally has some isolated elevated systolic blood pressures. Diastolic blood pressures are well controlled. Today blood pressure is 144/82. Denies lightheadedness/dizziness/chest pain or shortness of breath. Otherwise she has been feeling fine. Still complains of chronic shortness of breath and fatigue. Fatigue seems to be the worst symptom. CLL: In 2020 was diagnosed with CLL. Followed by Dr. Salas our bone crusher here [facility] [place] [facility]. Was started on 420 mg of Imbruvica. A side effect of that is elevated blood pressures. States only side effects from the Imbruvica have been mild fatigue. Nausea as she was having has resolved. Recently seen for follow up with oncology on 05/16/21. She complained of shortness of breath and fatigue along with mild dizziness. Recent labs were reviewed additionally she had an EKG completed and was referred to [facility] to rule out a PE at that visit. CTA of chestwas completed at [facility]. No evidence of pulmonary emboli were identified. Additionally she has a stable right pericardial cyst which was previously identified on other diagnosticsin the past. Was discharged to home in instructed to follow-up with her oncology team. Skin lesion: Skin lesion to the left occipital region of her scalp. Has been present for about 10 years. Would like it looked at. No personal history of skin cancer Past medical history, appointments, medications, allergies reviewed 06/13/2021 Previous Medical History PAST MEDICAL HISTORY Diagnosis Date Allergic rhinitis due to animal hair and dander + testing dander, dust, outside. [facility]. Arthritis of both knees 03/04/2012 CKD (chronic kidney disease), stage III (HCC) Degeneration of intervertebral disc, site unspecified Degenerative arthritis of hip 03/04/2012 Diverticulosis of colon (without mention of hemorrhage) Endometriosis Family history of malignant neoplasm of gastrointestinal tract Hyperlipidemia Hypertension Internal hemorrhoids without mention of complication Other specified gastritis Unspecified hypothyroidism Previous Surgical History PAST SURGICAL HISTORY Procedure Laterality Date ARTHRP ACETBLR/PROX FEM PROSTC AGRFT/ALGRFT 2012 Left Hip ARTHRP ACETBLR/PROX FEM PROSTC AGRFT/ALGRFT Right 01/21/2017 Dr. Reid COLONOSCOPY FLX DX W/COLLJ SPEC WHEN PFRMD 12/16/08 DILATION & CURETTAGE DX&/THER NONOBSTETRIC 1969's multiple LAMINECTOMY W/O FFD > 2 VERT SEG LUMBAR 2009 titanium chris PAST SURGICAL HISTORY OF 2001 FOOT SURGERY PAST SURGICAL HISTORY OF Jan 2004 Dr. Mclean - Back Surgery-upper back - metal rods and cadaver bone TOTAL ABDOMINAL HYSTERECT W/WO RMVL TUBE OVARY 1986 Hysterectomy, ANDREW/BSO Family History FAMILY HISTORY Problem Relation Age of Onset Hypertension Mother Stroke Mother other (DIVERTICULITIS) Mother Heart Father Hypertension Father Colon Cancer Sister age 48-50 Diabetes Maternal Grandmother Thyroid Sister X-2 Thyroid Child 2 Daughters Asthma No Family History Allergies No Family History Patient Allergies ALLERGIES Allergen Reactions Lyrica [Pregabalin] Mental Status Change Penicillins Hives Amoxicillin GI Upset Codeine Rash Doxycycline Hcl GI Upset Fentanyl Rash Keflex [Cephalexin] Latex Lisinopril Cough Meloxicam Hives Mirapex [Pramipexol* Rash Oxycodone Hives Sulfa (Sulfonamide * Hives Trazodone (Bulk) Mental Status Change hallucinates Ultram [Tramadol Hc* Versed [Midazolam H* Rash Zetia [Ezetimibe] Current Medications Current Outpatient Medications on File Prior to Visit Medication Sig allopurinol (ZYLOPRIM) 100 mg tablet Take 1 tablet by mouth once daily. cetirizine (ZYRTEC) 10 mg tablet Take 10 mg by mouth once daily. ibrutinib (IMBRUVICA) 140 mg capsule Take 3 capsules (420 mg) by mouth once daily. hydroCHLOROthiazide (HYDRODIURIL, ESIDRIX) 25 mg tablet take 1 tablet by mouth once daily OTC PRODUCT Plexus nerve, 2 capsules every night pantoprazole DR (PROTONIX) 40 mg tablet Take 1 tablet by mouth once daily. [DISCONTINUED] hydroCHLOROthiazide (HYDRODIURIL, ESIDRIX) 25 mg tablet Take 1 tablet by mouth once daily. levothyroxine (SYNTHROID) 137 mcg tablet Take 1 tablet by mouth once daily. Take on empty stomach. For thyroid. losartan (COZAAR) 100 mg tablet Take 1 tablet by mouth once daily. escitalopram oxalate (LEXAPRO) 10 mg tablet Take 1 tablet by mouth once daily. Oxyquinoline-Na Lauryl Sulfate (TRIMO-SCHUSTER JELLY) 0.025-0.01 % gel Use 1 Inch vaginally two times a week. No current facility-administered medications on file prior to visit. Social History Social History Tobacco Use Smoking status: Former Smoker Types: Cigarettes Smokeless tobacco: Never Used Tobacco comment: None since age 20s. No smoking in childhood home. Spouse of 56 years stopped smoking 1974. Vaping Use Vaping Use: Never used Substance Use Topics Alcohol use: No Drug use: No Review of Symptoms GENERAL: No weight loss, or fevers. Mild fatigue NECK: Negative for lumps, pain RESPIRATORY: Negative for dyspnea or shortness of breath CARDIOVASCULAR: Negative for chest pain GI: No vomiting, or diarrhea Neuro: No lightheadedness or dizziness EXAM: BP 144/82 Pulse 61 Resp 16 Wt 79.4 kg (175 lb) SpO2 99% BMI 33.91 kg/m General Appearance: Well appearing, alert, in no acute distress, well-hydrated, well nourished. Obese Skin: Skin color, texture, turgor normal. 1.5 cm seborrheic keratosis noted to the left posterior septal region. Waxy and scaling appearance. Brown in color. Raised just above the skin. Head: Normocephalic, no masses, lesions, or abnormalities. Eyes: Anicteric sclera. Neck: Supple, no adenopathy; thyroid symmetric, normal size, no bruits. Lymph Nodes: No cervical lymphadenopathy, No supraclavicular lymphadenopathy Lungs: Lungs clear to auscultation. No wheezing, rhonchi, rales. Heart: RRR without murmur, gallop, or rubs. No ectopy. Normal S1 and S2. Extremities: No deformities, edema. Good capillary refill. MSK: FROM of upper and lower extremities. No joint swelling or redness. Peripheral Pulses: Normal - radial and carotid 2+ Psych: Attitude: Cooperative, easily engaged in conversation Appearance: Normal, hygiene and grooming appropriate Affect: Euthymic (normal mood) Mental status: Alert, attentive. Speech is clear and fluent with good repetition, comprehension Gait/Stance: Posture is normal. Gait is steady with normal steps Health Maintenance List BP CONTROLLED (<130/80) Never done DEPRESSION SCREENING due on 06/19/2018 DTAP,TDAP,TD(1 - Tdap) due on 12/22/2020 INFLUENZA(1) due on 10/26/2020 ANNUAL PCP TEAM CHRONIC DISEASE VISIT due on 06/10/2021 MAMMOGRAM due on 06/20/2021 HEMOGLOBIN/HEMATOCRIT due on 08/01/2021 SERUM CREATININE due on 08/10/2021 DIABETES SCREEN due on 08/11/2023 LIPID SCREEN due on 12/22/2024 ADVANCE DIRECTIVE DISCUSSION due on 12/22/2024 BONE DENSITY Completed HEPATITIS C SCREENING Completed PNEUMOVAX AGE 65 AND OVER WITH 5YR LOOKBACK Completed SHINGRIX VACCINE Completed COVID-19 VACCINE Completed MENINGOCOCCAL CONJUGATE Aged Out COLORECTAL CANCER SCREENING Discontinued Data reviewed Last 5 Encounter BP Readings: Date: BP: 06/13/2021 144/82 05/16/2021 142/73 03/16/2021 138/80 02/15/2021 156/70 01/17/2021 128/63 BMI Readings from Last 5 Encounters: 06/13/21 : 33.91 kg/m 05/16/21 : 34.00 kg/m 03/16/21 : 33.40 kg/m 02/15/21 : 34.00 kg/m 01/17/21 : 33.81 kg/m Last 5 Encounter Wt Readings: Date: Wt: 06/13/2021 79.4 kg (175 lb) 05/16/2021 79.6 kg (175 lb 8 oz) 03/16/2021 78.2 kg (172 lb 6.4 oz) 02/15/2021 79.6 kg (175 lb 8 oz) 01/17/2021 79.2 kg (174 lb 8 oz) Medication and allergy list reviewed, reconciled and updated 06/13/2021 ASSESSMENT/PLAN: 1. Essential hypertension, benign - ICD9: 401.1, ICD10: I10 (primary diagnosis) - Fair to good control: I have not seen a large spike/jump in her blood pressure since starting herImbruvica. Blood pressures documented and reviewed and noted above. Has occasional isolated systolic elevated blood pressure. I recommend that we continue to monitor her BP. She takes the losartan atbedtime and hydrochlorothiazide recommend to continue with this current regimen. - Continue current medication(s) - Encouraged dietary sodium restriction/DASH diet - Recommended regular aerobic exercise. - Recommend home blood pressure monitoring, to bring results in on next visit - Goal of BP <140/90 - Recommended no refined sugar, low refined starch, healthy oil intake (olive oil), healthy protein(fish) along the lines of the Mediterranean diet. Follow-up in 6 months for blood pressure check. Sooner for higher readings at home 2. Stage 3a chronic kidney disease (HCC) - ICD9: 585.3, ICD10: N18.31 Clinically stable. The three chavez elements to ensuring and maintaining proper kidney function are hydrating well with water daily (64 ounces daily), blood pressure control and not eating excessive protein within his diet. 3. CLL (chronic lymphocytic leukemia) (HCC) - ICD9: 204.10, ICD10: C91.10 Clinically stable. Continue follow-up with oncology. 4. Mixed anxiety depressive disorder - ICD9: 300.4, ICD10: F41.8 Clinically stable. Continue current medical therapy - ESCITALOPRAM 10 MG TABLET 5. 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 Continue current medical therapy - LEVOTHYROXINE 137 MCG TABLET 6. Chronic fatigue - ICD9: 780.79, ICD10: R53.82 Clinically stable. No worsening of fatigue or shortness of breath. No chest pain. Continues with Chronic fatigue and shortness of breath. This is all started after her diagnosis of CLL and treatment. Recently was seen in the ER to rule out PE with CTA of chest. Twelve-lead EKG was completed in the oncology office showing no acute findings. CT of chest was negative - No PE identified. Hematology/oncology recommend consultation with cardiology. She has a pending appointment on July 05 at [facility]. Previous echocardiogram completed on February 26, 2012. Minor findings at that time. Recommend repeat echocardiogram and follow-up with cardiology. Patient will seek care in the emergency room for the following: Any concerns of chest pain pressureor palpitations; any chest pain that changes in severity, quality or location; chest pain that is associated with lightheadedness, dizziness, indigestion and/or shortness of breath, or that radiates to the jaw, neck, or back. The patient is instructed to call 911 for transport via EMS or head directly to the ER. The patient verbalizes understanding. - ECHO - PERFLUTREN LIPID MICROSPHERES 1.1 MG/ML INJECTION IN NS 10 ML - SODIUM CHLORIDE 0.9 % (FLUSH) INJECTION SYRINGE 7. SOB (shortness of breath) - ICD9: 786.05, ICD10: R06.02 Plan is #6 - ECHO - PERFLUTREN LIPID MICROSPHERES 1.1 MG/ML INJECTION IN NS 10 ML - SODIUM CHLORIDE 0.9 % (FLUSH) INJECTION SYRINGE 8. Seborrheic keratoses - ICD9: 702.19, ICD10: L82.1 Seborrheic keratosis to the left occipital region. Educated on seborrheic keratosis. Offered dermatology consultation but patient declined at this time. Urban Kruger APRN.GOLF BALL WINDER, DNP This note was completed with [email or web address] dictation software. Note was reviewed for accuracy. There may be minor misspellings or grammar miscues with [email or web address] Dictation. I spent a total of 32 minutes on the date of the service which included preparing to see the patient, [id number] patient care, completing clinical documentation, performing a medically appropriate examination, counseling and educating the patient/family/caregiver and ordering medications, tests, or procedures. [facility] [address] [phone] This note was copied from previous note and exam dated 12/13/20 . Author is Urban Kruger APRN.TRACE KOHLER note reviewed and changes have been made or updates noted in the copy & paste portion of an encounter. documented in this encounterCleveland Clinic Foundation04-18-2022 Miscellaneous Notes* Telephone Encounter - Cristina Taylor APRN.CNP - 06/12/2021 11:00 AM EDT See my chart message. CBC/CMP end of this week or early next week. Then OV with CBC/CMP in one month. Thank you. Cristina Taylor APRN.EDITA * Telephone Encounter - Cathy Lawton RN - 06/09/2021 1:50 PM EDT Spoke to daughter. Daughter stated fatigue is the same, SOB remains unchanged, denies fever, chills, unusual bruising/bleeding, irregular heartbeats, chest discomfort/pressure/pain, N/V, or other concerning symptoms. Daughter stated she is doing really well since she was last in. Daughter beulah Evans and Dr. Salas are both out of the office today. Daughter informed our office will contact her next week for follow-up plan. Daughter encouraged to call with any worsening s/s. Please advise follow-up plan for this patient. She has no lab or OV appointments scheduled with ouroffice. Cathy Lawton RN documented in this encounterCleveland Clinic Foundation03-28-2022 History of Present illness Narrative* Love Segura (Agricultural Service Worker) - 05/22/2021 1:32 PM EDT [facility] Medication(s): Imbruvica Reviewed OV note on 05/16. Labs reviewed. Next clinic visit not scheduled . Therapy continues to be appropriate for disease, patient response, and medical condition. Verification of therapeutic benefit and effectiveness with current therapy. Adverse events, barriers in adherence, and side effects assessed and addressed. Will proceed with refill with no changes. Previously confirmed with office pt to continue as vertigo/JONES/dizziness may not be cardiac related Janet Duran, DanaD Clinical Pharmacist, Oncology [facility] P: , F: Pool: P [facility] ON[facility] Pool #: [id number] [facility] Visit Assessment - Hematology/Oncology: Assessment to use: Refill Non-Clinical Assessment: Patient confirmed: Yes Med/dose confirmed: Yes Supplies needed: N/A Missed doses: No Estimated days supply on hand: 3 Copay amount: 0 Payment confirmed: Yes Address confirmed: Yes Delivery method: FedEx Delivery address: [address] [place], [place] Delivery date: 05/24/2021 Patient has questions: No Vaccination Assessment: Date of influenza vaccination reminder: 11/09/2020 Date of most recent vaccination assessment: 11/09/2020 Treatment Plan Information: Treatment Plan Information: 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 Admin/Storage: Take with glass of water at same time each day, avoid grapefruit/[place] oranges A/E: Cardiovascular effects,GI (diarrhea, constipation, abdominal pain, decreased appettite, dyspepsia, N/V, stomatitis), HTN, TLS, rash, anemia, neutropenia, thrombocytopenia, bruising, petechia, arthralgia, asthenia, muscle spasm, musculoskeetal pain Pt is on allopurinol D/I: Category C with lexapro-imbruvica may enhance antiplatelet effects of lexapro Lab: blood counts monthly or as clinically necessary renal and hepatic function uric acid levels as clinically necessary monitor blood pressure monitor for sign/symptoms of bleeding, infections, progressive multifocal encephalopathy, tumor lysis syndrome, second primary malignancies; signs/symptoms of cardiac arrhythmias and/or heart failure; ECG prior to initiation (patients with cardiac risk factors or history of cardiac arrhythmias) andduring therapy if clinically indicated Refill Assessment: Lab monitoring inclusive of CBC, Chem-7, and other labs as pertinent for therapy: Yes Chemo cycle timing assessment: N/A Screening for infection: Yes Adverse reactions and mitigation: Yes Medication changes and interaction assessment: Yes Assessment of injection issues: N/A Additional Assessment: Assessment of continued need for prophylactic medications at regular intervals: Yes Radiology procedure timing to assess for disease progression: Yes Scheduled future appointments: Yes Love Segura CPhT [facility] [phone] documented in this encounterCleveland Clinic Foundation03-25-2022 Miscellaneous Notes* Telephone Encounter - Ingrid Zaidi RPh - 05/19/2021 8:19 AM EDT Pt will be due for a refill of imbruvica soon. If therapy is being continued, please sign this order request to send refill via eRx to [facility]. Thanks! Ingrid Zaidi, PharmD Clinical Pharmacist, Oncology [facility] P: , F: documented in this encounterCleveland Clinic Foundation04-02-2021 History of Present illness Narrative* Yeimi Benson (Chelsie), Chelsie - 05/27/2020 3:40 PM EDT Radiology Service Progress Note PATIENT NAME: Marcelo Gonzalez DATE OF SERVICE: May 27, 2020 TIME: 3:49 PM PATIENT IDENTITY VERIFICATION COMPLETED USING TWO (2) IDENTIFIERS: Name and Date of confirmedby patient verbally. FALL SCREENING: Has the patient had 2 falls in the last year or 1 fall with injury or currently using an Ambulatory Assistive Device (Walker, Cane, Wheelchair, Crutches, etc.)? No PATIENT GENDER DATA: Female. status: : No status: NO. PATIENT RELEVANT IMPLANT DATA REVIEWED: Not Applicable RADIOLOGY DEPARTMENT: General X-ray: Exam(s) Completed: Lower Extremity X- Ray(s): Knee, AP / Lat / Tunne / Merchant Bilateral and Wt. Bearing: PERIPHERAL IV DATA: Not applicable SIGNED BY: Chelsie Callejas May 27, 2020 3:49 PM documented in this encounterCleveland Clinic Foundation12-15-2020 History of Present illness Narrative* Eliane Blake (Rt)Chelsie - 02/09/2020 9:10 AM EST Radiology Service Progress Note PATIENT NAME: Marcelo Gonzalez DATE OF SERVICE: February 09, 2020 TIME: 9:04 AM PATIENT IDENTITY VERIFICATION COMPLETED USING TWO (2) IDENTIFIERS: Name and Date of confirmedby patient verbally. FALL SCREENING: Has the patient had 2 falls in the last year or 1 fall with injury or currently using an Ambulatory Assistive Device (Walker, Cane, Wheelchair, Crutches, etc.)? No PATIENT GENDER DATA: Female. status: : No status: NO. PATIENT RELEVANT IMPLANT DATA REVIEWED: Yes RADIOLOGY DEPARTMENT: General X-ray: Exam(s) Completed: Chest X-Ray PERIPHERAL IV DATA: Not applicable SIGNED BY: RT Juanita February 09, 2020 9:04 AM documented in this encounterCleveland Clinic Foundation07-02-2015 History of Past illness Narrative* Problem Noted Date Resolved Date Special screening for malignant neoplasms, colon 08/26/2014 08/26/2014 documented as of this encounter (statuses as of 05/19/2021) [facility] Narrative* Problem Noted Date Resolved Date Special screening for malignant neoplasms, colon 08/26/2014 08/26/2014 documented as of this encounter (statuses as of 05/22/2021) [facility] Narrative* Problem Noted Date Resolved Date Special screening for malignant neoplasms, colon 08/26/2014 08/26/2014 documented as of this encounter (statuses as of 06/12/2021) [address] History of Past illness Narrative* Problem Noted Date Resolved Date Special screening for malignant neoplasms, colon 08/26/2014 08/26/2014 documented as of this encounter (statuses as of 06/14/2021) [address]2015 History of Past illness Narrative* Problem Noted Date Resolved Date Special screening for malignant neoplasms, colon 08/26/2014 08/26/2014 documented as of this encounter (statuses as of 06/16/2021) [address]2015 History of Past illness Narrative* Problem Noted Date Resolved Date Special screening for malignant neoplasms, colon 08/26/2014 08/26/2014 documented as of this encounter (statuses as of 07/02/2021) [address] History of Past illness Narrative* Problem Noted Date Resolved Date Special screening for malignant neoplasms, colon 08/26/2014 08/26/2014 documented as of this encounter (statuses as of 07/05/2021) [address]2015 History of Past illness Narrative* Problem Noted Date Resolved Date Special screening for malignant neoplasms, colon 08/26/2014 08/26/2014 documented as of this encounter (statuses as of 07/11/2021) [address] History of Past illness Narrative* Problem Noted Date Resolved Date Special screening for malignant neoplasms, colon 08/26/2014 08/26/2014 documented as of this encounter (statuses as of 07/12/2021) [address] History of Past illness Narrative* Problem Noted Date Resolved Date Special screening for malignant neoplasms, colon 08/26/2014 08/26/2014 documented as of this encounter (statuses as of 07/18/2021) [address] History of Past illness Narrative* Problem Noted Date Resolved Date Special screening for malignant neoplasms, colon 08/26/2014 08/26/2014 documented as of this encounter (statuses as of 07/21/2021) [address] History of Past illness Narrative* Problem Noted Date Resolved Date Special screening for malignant neoplasms, colon 08/26/2014 08/26/2014 documented as of this encounter (statuses as of 07/26/2021) [address] History of Past illness Narrative* Problem Noted Date Resolved Date Special screening for malignant neoplasms, colon 08/26/2014 08/26/2014 documented as of this encounter (statuses as of 08/03/2021) [address] History of Past illness Narrative* Problem Noted Date Resolved Date Special screening for malignant neoplasms, colon 08/26/2014 08/26/2014 documented as of this encounter (statuses as of 08/08/2021) [address] History of Past illness Narrative* Problem Noted Date Resolved Date Special screening for malignant neoplasms, colon 08/26/2014 08/26/2014 documented as of this encounter (statuses as of 08/15/2021) [address] History of Past illness Narrative* Problem Noted Date Resolved Date Special screening for malignant neoplasms, colon 08/26/2014 08/26/2014 documented as of this encounter (statuses as of 08/16/2021) [address] History of Past illness Narrative* Problem Noted Date Resolved Date Special screening for malignant neoplasms, colon 08/26/2014 08/26/2014 documented as of this encounter (statuses as of 08/16/2021) [address]2015 History of Past illness Narrative* Problem Noted Date Resolved Date Special screening for malignant neoplasms, colon 08/26/2014 08/26/2014 documented as of this encounter (statuses as of 08/30/2021) [facility]arr[facility]* Problem Noted Date Resolved Date Special screening for malignant neoplasms, colon 08/26/2014 08/26/2014 documented as of this encounter (statuses as of 09/06/2021) [address] History of Past illness Narrative* Problem Noted Date Resolved Date Special screening for malignant neoplasms, colon 08/26/2014 08/26/2014 documented as of this encounter (statuses as of 09/12/2021) [address]2015 History of Past illness Narrative* Problem Noted Date Resolved Date Special screening for malignant neoplasms, colon 08/26/2014 08/26/2014 documented as of this encounter (statuses as of 09/15/2021) [address]2015 History of Past illness Narrative* Problem Noted Date Resolved Date Special screening for malignant neoplasms, colon 08/26/2014 08/26/2014 documented as of this encounter (statuses as of 09/26/2021) [address]2015 History of Past illness Narrative* Problem Noted Date Resolved Date Special screening for malignant neoplasms, colon 08/26/2014 08/26/2014 documented as of this encounter (statuses as of 09/27/2021) [address]2015 History of Past illness Narrative* Problem Noted Date Resolved Date Special screening for malignant neoplasms, colon 08/26/2014 08/26/2014 documented as of this encounter (statuses as of 10/27/2021) [address]2015 History of Past illness Narrative* Problem Noted Date Resolved Date Special screening for malignant neoplasms, colon 08/26/2014 08/26/2014 documented as of this encounter (statuses as of 11/06/2021) [address]2015 History of Past illness Narrative* Problem Noted Date Resolved Date Special screening for malignant neoplasms, colon 08/26/2014 08/26/2014 documented as of this encounter (statuses as of 11/06/2021) [address]2015 History of Past illness Narrative* Problem Noted Date Resolved Date Special screening for malignant neoplasms, colon 08/26/2014 08/26/2014 documented as of this encounter (statuses as of 11/06/2021) [address]2015 History of Past illness Narrative* Problem Noted Date Resolved Date Special screening for malignant neoplasms, colon 08/26/2014 08/26/2014 documented as of this encounter (statuses as of 11/07/2021) [address]2015 History of Past illness Narrative* Problem Noted Date Resolved Date Special screening for malignant neoplasms, colon 08/26/2014 08/26/2014 documented as of this encounter (statuses as of 11/10/2021) [address]2015 History of Past illness Narrative* Problem Noted Date Resolved Date Special screening for malignant neoplasms, colon 08/26/2014 08/26/2014 documented as of this encounter (statuses as of 11/16/2021) [address]2015 History of Past illness Narrative* Problem Noted Date Resolved Date Special screening for malignant neoplasms, colon 08/26/2014 08/26/2014 documented as of this encounter (statuses as of 11/24/2021) [address]2015 History of Past illness Narrative* Problem Noted Date Resolved Date Special screening for malignant neoplasms, colon 08/26/2014 08/26/2014 documented as of this encounter (statuses as of 11/28/2021) [address]2015 History of Past illness Narrative* Problem Noted Date Resolved Date Special screening for malignant neoplasms, colon 08/26/2014 08/26/2014 documented as of this encounter (statuses as of 11/29/2021) [address]2015 History of Past illness Narrative* Problem Noted Date Resolved Date Special screening for malignant neoplasms, colon 08/26/2014 08/26/2014 documented as of this encounter (statuses as of 11/29/2021) [address]2015 History of Past illness Narrative* Problem Noted Date Resolved Date Special screening for malignant neoplasms, colon 08/26/2014 08/26/2014 documented as of this encounter (statuses as of 11/29/2021) [address]2015 History of Past illness Narrative* Problem Noted Date Resolved Date Special screening for malignant neoplasms, colon 08/26/2014 08/26/2014 documented as of this encounter (statuses as of 11/29/2021) [address]2015 History of Past illness Narrative* Problem Noted Date Resolved Date Special screening for malignant neoplasms, colon 08/26/2014 08/26/2014 documented as of this encounter (statuses as of 12/12/2021) [address]2015 History of Past illness Narrative* Problem Noted Date Resolved Date Special screening for malignant neoplasms, colon 08/26/2014 08/26/2014 documented as of this encounter (statuses as of 12/25/2021) [address]2015 History of Past illness Narrative* Problem Noted Date Resolved Date Special screening for malignant neoplasms, colon 08/26/2014 08/26/2014 documented as of this encounter (statuses as of 01/04/2022) [address]2015 History of Past illness Narrative* Problem Noted Date Resolved Date Special screening for malignant neoplasms, colon 08/26/2014 08/26/2014 documented as of this encounter (statuses as of 01/29/2022) [address]2015 History of Past illness Narrative* Problem Noted Date Resolved Date Special screening for malignant neoplasms, colon 08/26/2014 08/26/2014 documented as of this encounter (statuses as of 01/31/2022) [address]2015 History of Past illness Narrative* Problem Noted Date Resolved Date Special screening for malignant neoplasms, colon 08/26/2014 08/26/2014 documented as of this encounter (statuses as of 02/01/2022) [address]2015 History of Past illness Narrative* Problem Noted Date Resolved Date Special screening for malignant neoplasms, colon 08/26/2014 08/26/2014 documented as of this encounter (statuses as of 02/09/2022) [address]2015 History of Past illness Narrative* Problem Noted Date Resolved Date Special screening for malignant neoplasms, colon 08/26/2014 08/26/2014 documented as of this encounter (statuses as of 02/09/2022) [address]2015 History of Past illness Narrative* Problem Noted Date Resolved Date Special screening for malignant neoplasms, colon 08/26/2014 08/26/2014 documented as of this encounter (statuses as of 02/28/2022) [address]2015 History of Past illness Narrative* Problem Noted Date Resolved Date Special screening for malignant neoplasms, colon 08/26/2014 08/26/2014 documented as of this encounter (statuses as of 02/28/2022) [address]2015 History of Past illness Narrative* Problem Noted Date Resolved Date Special screening for malignant neoplasms, colon 08/26/2014 08/26/2014 documented as of this encounter (statuses as of 03/08/2022) [address]2015 History of Past illness Narrative* Problem Noted Date Resolved Date Special screening for malignant neoplasms, colon 08/26/2014 08/26/2014 documented as of this encounter (statuses as of 03/28/2022) [address]2015 History of Past illness Narrative* Problem Noted Date Resolved Date Special screening for malignant neoplasms, colon 08/26/2014 08/26/2014 documented as of this encounter (statuses as of 03/29/2022) [address]2015 History of Past illness Narrative* Problem Noted Date Resolved Date Special screening for malignant neoplasms, colon 08/26/2014 08/26/2014 documented as of this encounter (statuses as of 04/02/2022) [address]2015 History of Past illness Narrative* Problem Noted Date Resolved Date Special screening for malignant neoplasms, colon 08/26/2014 08/26/2014 documented as of this encounter (statuses as of 04/11/2022) [address]2015 History of Past illness Narrative* Problem Noted Date Resolved Date Special screening for malignant neoplasms, colon 08/26/2014 08/26/2014 documented as of this encounter (statuses as of 04/12/2022) [address]2015 History of Past illness Narrative* Problem Noted Date Resolved Date Special screening for malignant neoplasms, colon 08/26/2014 08/26/2014 documented as of this encounter (statuses as of 04/25/2022) [address]2015 History of Past illness Narrative* Problem Noted Date Resolved Date Special screening for malignant neoplasms, colon 08/26/2014 08/26/2014 documented as of this encounter (statuses as of 05/02/2022) [address]2015 History of Past illness Narrative* Problem Noted Date Resolved Date Special screening for malignant neoplasms, colon 08/26/2014 08/26/2014 documented as of this encounter (statuses as of 05/21/2022) [address]2015 History of Past illness Narrative* Problem Noted Date Resolved Date Special screening for malignant neoplasms, colon 08/26/2014 08/26/2014 documented as of this encounter (statuses as of 05/26/2022) [address]2015 History of Past illness Narrative* Problem Noted Date Resolved Date Special screening for malignant neoplasms, colon 08/26/2014 08/26/2014 documented as of this encounter (statuses as of 06/08/2022) [address]2015 History of Past illness Narrative* Problem Noted Date Resolved Date Special screening for malignant neoplasms, colon 08/26/2014 08/26/2014 documented as of this encounter (statuses as of 06/09/2022) [address]2015 History of Past illness Narrative* Problem Noted Date Resolved Date Special screening for malignant neoplasms, colon 08/26/2014 08/26/2014 documented as of this encounter (statuses as of 06/27/2022) [address]2015 History of Past illness Narrative* Problem Noted Date Resolved Date Special screening for malignant neoplasms, colon 08/26/2014 08/26/2014 documented as of this encounter (statuses as of 06/27/2022) [address]2015 History of Past illness Narrative* Problem Noted Date Resolved Date Special screening for malignant neoplasms, colon 08/26/2014 08/26/2014 documented as of this encounter (statuses as of 06/29/2022) [address]2015 History of Past illness Narrative* Problem Noted Date Resolved Date Special screening for malignant neoplasms, colon 08/26/2014 08/26/2014 documented as of this encounter (statuses as of 08/29/2022) [address]2015 History of Past illness Narrative* Problem Noted Date Diagnosed Date Resolved Date Special screening for malign ant neoplasms, colon 08/26/2014 08/26/2014 documented as of this encounter (statuses as of 09/07/2022) [address]2015 History of Past illness Narrative* Problem Noted Date Diagnosed Date Resolved Date Special screening for malign ant neoplasms, colon 08/26/2014 08/26/2014 documented as of this encounter (statuses as of 09/09/2022) [address]2015 History of Past illness Narrative* Problem Noted Date Diagnosed Date Resolved Date Special screening for malign ant neoplasms, colon 08/26/2014 08/26/2014 documented as of this encounter (statuses as of 09/11/2022) [address]2015 History of Past illness Narrative* Problem Noted Date Diagnosed Date Resolved Date Special screening for malign ant neoplasms, colon 08/26/2014 08/26/2014 documented as of this encounter (statuses as of 09/20/2022) [address]2015 History of Past illness Narrative* Problem Noted Date Diagnosed Date Resolved Date Special screening for malign ant neoplasms, colon 08/26/2014 08/26/2014 documented as of this encounter (statuses as of 10/04/2022) [address]2015 History of Past illness Narrative* Problem Noted Date Diagnosed Date Resolved Date Special screening for malign ant neoplasms, colon 08/26/2014 08/26/2014 documented as of this encounter (statuses as of 10/06/2022) [address]2015 History of Past illness Narrative* Problem Noted Date Diagnosed Date Resolved Date Special screening for malign ant neoplasms, colon 08/26/2014 08/26/2014 documented as of this encounter (statuses as of 10/09/2022) [address]2015 History of Past illness Narrative* Problem Noted Date Diagnosed Date Resolved Date Special screening for malign ant neoplasms, colon 08/26/2014 08/26/2014 documented as of this encounter (statuses as of 10/10/2022) [address]2015 History of Past illness Narrative* Problem Noted Date Diagnosed Date Resolved Date Special screening for malign ant neoplasms, colon 08/26/2014 08/26/2014 documented as of this encounter (statuses as of 10/18/2022) [address]2015 History of Past illness Narrative* Problem Noted Date Diagnosed Date Resolved Date Special screening for malign ant neoplasms, colon 08/26/2014 08/26/2014 documented as of this encounter (statuses as of 11/06/2022) [address]2015 History of Past illness Narrative* Problem Noted Date Diagnosed Date Resolved Date Special screening for malign ant neoplasms, colon 08/26/2014 08/26/2014 documented as of this encounter (statuses as of 11/07/2022) [address]2015 History of Past illness Narrative* Problem Noted Date Diagnosed Date Resolved Date Special screening for malign ant neoplasms, colon 08/26/2014 08/26/2014 documented as of this encounter (statuses as of 12/04/2022) [address]2015 History of Past illness Narrative* Problem Noted Date Diagnosed Date Resolved Date Special screening for malign ant neoplasms, colon 08/26/2014 08/26/2014 documented as of this encounter (statuses as of 01/02/2023) [address]2015 History of Past illness Narrative* Problem Noted Date Diagnosed Date Resolved Date Special screening for malign ant neoplasms, colon 08/26/2014 08/26/2014 documented as of this encounter (statuses as of 01/03/2023) [address]2015 History of Past illness Narrative* Problem Noted Date Diagnosed Date Resolved Date Special screening for malign ant neoplasms, colon 08/26/2014 08/26/2014 documented as of this encounter (statuses as of 01/07/2023) [address]2015 History of Past illness Narrative* Problem Noted Date Diagnosed Date Resolved Date Special screening for malign ant neoplasms, colon 08/26/2014 08/26/2014 documented as of this encounter (statuses as of 02/01/2023) [address]2015 History of Past illness Narrative* Problem Noted Date Diagnosed Date Resolved Date Special screening for malign ant neoplasms, colon 08/26/2014 08/26/2014 documented as of this encounter (statuses as of 04/01/2023) [address]2015 History of Past illness Narrative* Problem Noted Date Diagnosed Date Resolved Date Special screening for malign ant neoplasms, colon 08/26/2014 08/26/2014 documented as of this encounter (statuses as of 04/10/2023) [address]2015 History of Past illness Narrative* Problem Noted Date Diagnosed Date Resolved Date Special screening for malign ant neoplasms, colon 08/26/2014 08/26/2014 documented as of this encounter (statuses as of 05/13/2023) [address]2015 History of Past illness Narrative* Problem Noted Date Diagnosed Date Resolved Date Special screening for malign ant neoplasms, colon 08/26/2014 08/26/2014 documented as of this encounter (statuses as of 05/27/2023) [address]2015 History of Past illness Narrative* Problem Noted Date Diagnosed Date Resolved Date Special screening for malign ant neoplasms, colon 08/26/2014 08/26/2014 documented as of this encounter (statuses as of 06/11/2023) [address]02-2015 History of Past illness Narrative* Problem Noted Date Diagnosed Date Resolved Date Special screening for malign ant neoplasms, colon 08/26/2014 08/26/2014 documented as of this encounter (statuses as of 06/12/2023) [address]-2015 History of Past illness Narrative* Problem Noted Date Diagnosed Date Resolved Date Special screening for malign ant neoplasms, colon 08/26/2014 08/26/2014 documented as of this encounter (statuses as of 05/31/2023) [facility] May 27, 2022 7:16am Note Date/Time May 27, 2022 7:10 am [facility] Medical Records Department [address] [place] [address] Emergency Department Summary 05/27/22 MR#: [id number] Acct: [id number] Name: MARCELO GONZALEZ Rep #:[id number] 26 : 1945 76 From: Adam Iverson DO PCP: TARAS Frank Status:REG E R Location: ED HPI History of Present Illness Chief Complaint: Constipation Informant: patient and spouse/S.O. Narrative Narrative: Patient is a 76-year-old female with past medical history of chronic kidney disease CLL and hypertension. Approximately 6 days ago she underwent a left knee replacement. Following the replacement patient was given IV morphine and then discharged home on oxycodone. Patient states that she typically has a bowel movement once a day but has not had a bowel for approximately 1 week as she did not have 1 on the Saturday prior to her surgery on Saturday. She has been maintaining hydration and taking senna but despite that has not had a bowel movement and is having some lower back and abdominal pain and is concerned for constipation and therefore comes in for evaluation [facility] Medical History Cancer CKD (chronic kidney disease) stage 3, GFR 30-59 ml/min CLL (chronic lymphocytic leukemia) Depression Former smoker GERD (gastroesophageal reflux disease) History of chest pain History of syncope HTN (hypertension) Hypothyroidism Mixed hyperlipidemia Non-smoker Osteoporosis Primary osteoarthritis of right hip Rheumatoid arthritis Sinus bradycardia Home Medications allopurinol 100 mg tablet 100 mg PO DAILY 06/27/21 [History Last Taken 08/31/21] cetirizine 10 mg tablet 10 mg PO DAILY PRN ALLERGIES 06/27/21 [History Last Taken 08/30/21] escitalopram oxalate 10 mg tablet (Lexapro) 10 mg PO DAILY 06/27/21 [History Last Taken 08/31/21] hydrochlorothiazide 25 mg tablet 25 mg PO DAILY 06/27/21 [History Last Taken 08/31/21] ibrutinib 140 mg tablet 280 mg PO DAILY 06/28/21 [History Last Taken 08/31/21] levothyroxine 137 mcg tablet 137 mcg PO DAILY 06/28/21 [History Last Taken 08/31/21] losartan 100 mg tablet 100 mg PO DAILY 06/28/21 [History Last Taken 08/30/21] pantoprazole 40 mg tablet,delayed release 40 mg PO BID GERD 06/28/21 [History Last Taken 08/31/21] Plexus Nerve 2 cap PO/SL DAILY SUPPLEMENT 08/31/21 [History Last Taken 08/31/21] ondansetron 4 mg disintegrating tablet 4 mg PO Q8H PRN nausea and vomiting #14 tabs 11/07/21 [Rx Last Taken Unknown] cephalexin 500 mg capsule 500 mg PO Q12 #14 caps 11/08/21 [Rx Last Taken Unknown] Allergy/AdvReac Type Severity Reaction Status Date / Time codeine Allergy Unknown Rash Verified 05/27/22 04:51 fentanyl Allergy Unknown Rash Verified 05/27/22 04:51 meloxicam Allergy Unknown Rash Verified 05/27/22 04:51 midazolam [From Versed] Allergy Unknown Rash Verified 05/27/22 04:51 oxycodone Allergy Unknown Hives Verified 05/27/22 04:51 pramipexole [From Mirapex] Allergy Unknown Rash Verified 05/27/22 04:51 amoxicillin Allergy Rash Verified 05/27/22 04:51 Penicillins [PCN] Allergy Rash Verified 05/27/22 04:51 Sulfa (Sulfonamide Allergy Rash Verified 05/27/22 04:51 Antibiotics) tramadol [From Ultram] Allergy Other Verified 05/27/22 04:51 cephalexin [From Keflex] AdvReac Unknown Unknown Verified 05/27/22 04:51 doxycycline AdvReac Unknown GI Upset Verified 05/27/22 04:51 ezetimibe [From Zetia] AdvReac Unknown Unknown Verified 05/27/22 04:51 lisinopril AdvReac Unknown Cough Verified 05/27/22 04:51 pregabalin [From Lyrica] AdvReac Unknown Mental Verified 05/27/22 04:51 Status Change trazodone AdvReac Unknown Mental Verified 05/27/22 04:51 Status Change adhesive AdvReac Rash Verified 05/27/22 04:51 Family History Mother CVA (cerebral vascular accident) Hypertension Father Heart disease Hypertension Sister Cancer Colon Grandmother Diabetes Sister Thyroid disorder Surgical History History of foot surgery History of lumbar laminectomy History of total hysterectomy History of total replacement of both hip joints Previous back surgery Social History household members: none Smoking Status: Former smoker alcohol intake: never substance use type: does not use ROS ROS ED Constitutional Constitutional ED: Denies chills or fever(s) ENT ENT ED: Denies sore throat Cardiovascular Cardiovascular: Denies chest pain Respiratory/Chest Respiratory/Chest: Denies cough or dyspnea Gastrointestinal Gastrointestinal: Reports abdominal pain and constipation; Denies diarrhea, nausea or vomiting Genitourinary Genitourinary ED: Denies dysuria Musculoskeletal Musculoskeletal: Reports back pain and other Details: Positive left knee pain ; Denies myalgias Integumentary Denies rash Neurologic Neurologic: Denies headache(s) Hematologic/Lymphatic Hematologic/Lymphatic: Denies easy bleeding or easy bruising EXAM Physical Exam Const Vital Signs: 05/27/22 04:48 Temperature 98.7 F Temperature Source Oral Pulse Rate 72 Respiratory Rate 16 Blood Pressure 133/58 H Blood Pressure Mean 83 Pulse Ox 95 Oxygen Delivery Method Room Air Positive well nourished and well developed General Appearance ED: well developed HEENT Reports moist mucous membranes Eyes PERRL and EOMs intact bilaterally General Eye ED: Negative for scleral icterus Neck supple Resp normal respiratory effort and clear to auscultation bilaterally Cardio regular rate and regular rhythm GI non-distended GI Narrative: Abdomen is soft and nondistended with normal active bowel sounds. There is mildpain with palpation in the mid to left side lower abdomen without voluntary guarding or rigidity. No organomegaly. No pulsatile mass or fluid wave Auscultation: normoactive bowel sounds Palpation: soft Back/Spine Back/Spine Narrative: No bony deformity or step-off of the thoracic or lumbar spine no midline pain onpalpation Extremity Extremity Narrative: Let me is swollen and ecchymotic consistent with recent knee replacement surgery. Wound is clean dry and intact without secondary changes to suggest infection Neuro oriented x3 and CN's II-XII intact bilaterally Sensorium / Orientation: alert Psych mental status grossly normal Skin skin turgor normal Skin Narrative: Soft tissue changes to the left knee as documented above General Skin Exam: Negative for jaundice MDM MDM MDM Narrative Medical decision making narrative: Patient presented to the ER with stable vitals and a soft nonsurgical abdomen. She does report knee pain but as she is 6 days postop this is to be expected andher knee looks appropriate for this stage. Her abdomen is soft and nonsurgical and as she has been given morphine as well as oxycodone most likely diagnosis isopioid related constipation versus some type of obstruction or ileus. Thereforeat this time only felt need for a KUB to confirm constipation. X-ray did confirm this and she was given a fleets enema and was able to pass a large bowelmovement. Therefore at this time as patient's had resolution of her constipation and exam and imaging studies do not show changes to suggest volvulus ileus or acute obstruction she is otherwise safe for discharge History & Record Review Discussion w/independent historian: Patient and Family Radiography Diagnostic Testing: Clinical Impression(s) from Imaging Studies KUB X-Ray 05/27/22 05:30 IMPRESSION: There is a large fecal residue in the colon. Electronically Signed: Carlos Orozco MD at 5:54 EDT Reading Location ID and State: [facility] / [place] Tel , Service support , KUB as interpreted by the emergency medicine physician reveals nonspecific nonobstructive bowel gas pattern with large fecal residue in the colon consistent with constipation Discharge Plan Triage Chief Complaint: Constipation ED Provider: Adam Iverson Dx/Rx/DC Orders Clinical Impression: Acute constipation, CKD (chronic kidney disease) stage 3, GFR 30-59 ml/min, Essential hypertension, CLL (chronic lymphocytic leukemia) Instructions: ED Constipation (Adult) Prescriptions: No Action allopurinol 100 mg tablet 100 mg PO DAILY cetirizine 10 mg tablet 10 mg PO DAILY PRN (Reason: ALLERGIES) escitalopram oxalate [Lexapro] 10 mg tablet 10 mg PO DAILY hydrochlorothiazide 25 mg tablet 25 mg PO DAILY ibrutinib 140 mg tablet 280 mg PO DAILY levothyroxine 137 mcg tablet 137 mcg PO DAILY losartan 100 mg tablet 100 mg PO DAILY pantoprazole 40 mg tablet,delayed release (DR/EC) 40 mg PO BID Plexus Nerve 2 cap PO/SL DAILY ondansetron 4 mg tablet,disintegrating 4 mg PO Q8H PRN (Reason: nausea and vomiting) Qty: 14 0RF cephalexin 500 mg capsule 500 mg PO Q12 Qty: 14 0RF Primary Care Provider: Jane Baig NP Referrals: Jane Baig NP, [employer] [Primary Care Provider] - Activity Restrictions/Additional Instructions: Please begin taking MiraLAX twice a day and keep yourself well-hydrated you may continue your senna as well. This will help prevent recurrent constipation. Ifyou start developing liquidy stools then you will need to reduce the MiraLAX to only once a day. Please continue your oxycodone secondary to your recent knee surgery but I do feel narcotics were the cause of your constipation. By doing the above bowel regiment with hydration MiraLAX twice a day and senna this should prevent any recurrent episodes. If you have any further concerns return for repeat evaluation Disposition Disposition: Home, Self Care What to do if you have Problems For any increased pain, shortness of breath, bleeding, nausea or vomiting, chestpain, or any unexpected problems, contact your Primary Care Provider. Call [facility] ([phone]) or report to the closest Emergency Room. Call 911 if necessary. 05/27/22 0716 <Electronically signed by Adam Iverson DO> Cosigner Signature (if applicable): CC: TARAS Baig ~ Signed [facility] Work Phone: Evaluation note* Diagnosis CLL (chronic lymphocytic leukemia) (HCC) Chronic lymphoid leukemia, without mention of having achieved remission [facility] encounter [facility] Diagnosis Essential hypertension, benign- Primary Stage 3b chronic kidney disease (HCC) CLL (chronic lymphocytic leukemia) (HCC) Chronic lymphoid leukemia, without mention of having achieved remission Mixed anxiety depressive disorder 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 Chronic fatigue Other malaise and fatigue SOB (shortness of breath) Shortness of breath Seborrheic keratoses Other seborrheic keratosis [facility] encounter [facility]* Diagnosis CLL (chronic lymphocytic leukemia) (HCC)- Primary Chronic lymphoid leukemia, without mention of having achieved remission [facility]* Diagnosis Onset Date Resolution Status Essential hypertension acute Sinus bradycardia acute [facility] Work Phone: Evaluation note* Diagnosis CLL (chronic lymphocytic leukemia) (HCC) Chronic lymphoid leukemia, without mention of having achieved remission [facility]* Diagnosis CLL (chronic lymphocytic leukemia) (HCC)- Primary Chronic lymphoid leukemia, without mention of having achieved remission [facility] Onset Date Resolution Status Essential hypertension acute Sinus bradycardia acute Acute dyspnea acute Chest pain acute [facility] Work Phone: Evaluation note* Diagnosis CLL (chronic lymphocytic leukemia) (HCC)- Primary Chronic lymphoid leukemia, without mention of having achieved remission [facility] Diagnosis Chest pain, unspecified type- 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 Hyperlipidemia, unspecified hyperlipidemia type Mixed anxiety depressive disorder Dysthymic disorder Gastroesophageal reflux disease, unspecified whether esophagitis present [facility] Diagnosis CLL (chronic lymphocytic leukemia) (HCC) Chronic lymphoid leukemia, without mention of having achieved remission [facility] Diagnosis CLL (chronic lymphocytic leukemia) (HCC)- Primary Chronic lymphoid leukemia, without mention of having achieved remission [facility] Diagnosis COVID-19- Primary [facility] Diagnosis Onset Date Resolution Status Acute dyspnea resolved Chest pain resolved [facility] Work Phone: Evaluation note* Diagnosis Acute cough- Primary [facility] Diagnosis Onset Date Resolution Status Acute dyspnea resolved Chest pain resolved COVID-19 acute Immunocompromised state acut e CKD (chronic kidney disease) stage 3, GFR 30-59 ml/min chronic CLL (chronic lymphocytic leukemia) chronic [facility] Work Phone: Evaluation note* Diagnosis COVID-19- Primary [facility] Diagnosis Post-COVID syndrome- Primary Fatigue, unspecified type Acute cough CLL (chronic lymphocytic leukemia) (HCC) Chronic lymphoid leukemia, without mention of having achieved remission Mixed anxiety depressive disorder Dysthymic disorder [facility]* Diagnosis CLL (chronic lymphocytic leukemia) (HCC) Chronic lymphoid leukemia, without mention of having achieved remission [facility]* Diagnosis CLL (chronic lymphocytic leukemia) (HCC)- Primary Chronic lymphoid leukemia, without mention of having achieved remission [facility]* Diagnosis 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 [facility]* Diagnosis Anemia, unspecified type- Primary [facility]* Diagnosis CLL (chronic lymphocytic leukemia) (HCC)- Primary Chronic lymphoid leukemia, without mention of having achieved remission [facility]* Diagnosis CLL (chronic lymphocytic leukemia) (HCC)- Primary Chronic lymphoid leukemia, without mention of having achieved remission [facility] Diagnosis Essential hypertension, benign [facility] Diagnosis URI, acute- Primary Acute upper respiratory infections of unspecified site CLL (chronic lymphocytic leukemia) (HCC) Chronic lymphoid leukemia, without mention of having achieved remission [facility]* Diagnosis CLL (chronic lymphocytic leukemia) (HCC)- Primary Chronic lymphoid leukemia, without mention of having achieved remission [facility]* Diagnosis CLL (chronic lymphocytic leukemia) (HCC) Chronic lymphoid leukemia, without mention of having achieved remission [facility] noteNo assessment information availableWThe [facility] Work Phone: Evaluation note* Diagnosis CLL (chronic lymphocytic leukemia) (HCC) Chronic lymphoid leukemia, without mention of having achieved remission [facility] Diagnosis Pain- Primary Generalized pain [facility]* Diagnosis CLL (chronic lymphocytic leukemia) (HCC)- Primary Chronic lymphoid leukemia, without mention of having achieved remission [facility]* Diagnosis CLL (chronic lymphocytic leukemia) (HCC) Chronic lymphoid leukemia, without mention of having achieved remission [facility]* Diagnosis CLL (chronic lymphocytic leukemia) (HCC)- Primary Chronic lymphoid leukemia, without mention of having achieved remission [facility] Diagnosis Essential hypertension, benign- 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 Anemia, unspecified type Fatigue, unspecified type Gastroesophageal reflux disease, unspecified whether esophagitis present Mixed anxiety depressive disorder Dysthymic disorder Hyperlipidemia, unspecified hyperlipidemia type Immunocompromised state (HCC) Unspecified immunity deficiency Stage 3b chronic kidney disease (HCC) [facility]* Diagnosis ELLIS (middle ear effusion), right- Primary Rheumatoid arthritis, involving unspecified site, unspecified whether rheumatoid factor present (HCC) [facility]* Diagnosis CLL (chronic lymphocytic leukemia) (HCC)- Primary Chronic lymphoid leukemia, without mention of having achieved remission [facility]* Diagnosis Encounter for immunization- Primary Need for other specified prophylactic vaccination against single bacterial disease Fluid level behind tympanic membrane of right ear 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 [facility]* Diagnosis CLL (chronic lymphocytic leukemia) (HCC) Chronic lymphoid leukemia, without mention of having achieved remission [facility]* Diagnosis CLL (chronic lymphocytic leukemia) (HCC)- Primary Chronic lymphoid leukemia, without mention of having achieved remission [facility]* Diagnosis Mixed anxiety depressive disorder- Primary Dysthymic disorder Viral URI Acute upper respiratory infections of unspecified site [facility]* Diagnosis CLL (chronic lymphocytic leukemia) (HCC)- Primary Chronic lymphoid leukemia, without mention of having achieved remission [facility]* Diagnosis Acute cystitis without hematuria- Primary Acute cystitis Urinary frequency [facility]* Diagnosis URI, acute- Primary Acute upper respiratory infections of unspecified site ETD (Eustachian tube dysfunction), right [facility]* Diagnosis Pneumonia of right lower lobe due to infectious organism- Primary Transient cerebral ischemia, unspecified type Syncope, unspecified syncope type Abnormal thyroid function test Nonspecific abnormal results of thyroid function study [facility]* Diagnosis CLL (chronic lymphocytic leukemia) (HCC)- Primary Chronic lymphoid leukemia, without mention of having achieved remission [facility]* Diagnosis Acute cystitis without hematuria- Primary Acute cystitis Hypothyroidism due to acquired atrophy of thyroid [facility] Diagnosis Transient cerebral ischemia, unspecified type [facility] Diagnosis Malodorous urine- Primary Other nonspecific finding on examination of urine [facility] Diagnosis Malodorous urine- Primary Other nonspecific finding on examination of urine Acute cystitis without hematuria Acute cystitis Hypothyroidism due to acquired atrophy of thyroid [facility]* Diagnosis Hypothyroidism due to acquired atrophy of thyroid [facility]* Diagnosis Mixed anxiety depressive disorder Dysthymic disorder documented in this encounter [facility] note* Diagnosis CLL (chronic lymphocytic leukemia) (HCC)- Primary Chronic lymphoid leukemia, without mention of having achieved remission [facility] Diagnosis Hypothyroidism due to acquired atrophy of thyroid- Primary [facility] Diagnosis Hypothyroidism due to acquired atrophy of thyroid documented in this encounter [facility] note* Diagnosis Finger pain, left- Primary Pain in limb Rash Rash and other nonspecific skin eruption [facility]* Diagnosis Essential hypertension, benign- 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 Anemia, unspecified type Fatigue, unspecified type Gastroesophageal reflux disease, unspecified whether esophagitis present Mixed anxiety depressive disorder Dysthymic disorder Hyperlipidemia, unspecified hyperlipidemia type Immunocompromised state (HCC) Unspecified immunity deficiency Stage 3b chronic kidney disease (HCC) ELLIS (middle ear effusion), right- Primary Rheumatoid arthritis, involving unspecified site, unspecified whether rheumatoid factor present (HCC) Itch- Primary Unspecified pruritic disorder Essential hypertension, benign Mixed anxiety depressive disorder Dysthymic 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 Stage 3b chronic kidney disease (HCC) Chronic fatigue Other malaise and fatigue Urinary frequency Memory loss 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) Immunocompromised state (HCC) Unspecified immunity deficiency Rheumatoid arthritis, involving unspecified site, unspecified whether rheumatoid factor present (HCC) Mixed anxiety depressive disorder- Primary Dysthymic disorder documented in this encounter [facility] note* Diagnosis Essential hypertension, benign- 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 Anemia, unspecified type Fatigue, unspecified type Gastroesophageal reflux disease, unspecified whether esophagitis present Mixed anxiety depressive disorder Dysthymic disorder Hyperlipidemia, unspecified hyperlipidemia type Immunocompromised state (HCC) Unspecified immunity deficiency Stage 3b chronic kidney disease (HCC) ELLIS (middle ear effusion), right- Primary Rheumatoid arthritis, involving unspecified site, unspecified whether rheumatoid factor present (HCC) Itch- Primary Unspecified pruritic disorder Essential hypertension, benign Mixed anxiety depressive disorder Dysthymic 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 Stage 3b chronic kidney disease (HCC) Chronic fatigue Other malaise and fatigue Urinary frequency Memory loss 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) Immunocompromised state (HCC) Unspecified immunity deficiency Rheumatoid arthritis, involving unspecified site, unspecified whether rheumatoid factor present (HCC) Finger pain, left Pain in limb documented in this encounter [facility] note* Diagnosis Essential hypertension, benign- 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 Anemia, unspecified type Fatigue, unspecified type Gastroesophageal reflux disease, unspecified whether esophagitis present Mixed anxiety depressive disorder Dysthymic disorder Hyperlipidemia, unspecified hyperlipidemia type Immunocompromised state (HCC) Unspecified immunity deficiency Stage 3b chronic kidney disease (HCC) ELLIS (middle ear effusion), right- Primary Rheumatoid arthritis, involving unspecified site, unspecified whether rheumatoid factor present (HCC) Itch- Primary Unspecified pruritic disorder Essential hypertension, benign Mixed anxiety depressive disorder Dysthymic 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 Stage 3b chronic kidney disease (HCC) Chronic fatigue Other malaise and fatigue Urinary frequency Memory loss 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) Immunocompromised state (HCC) Unspecified immunity deficiency Rheumatoid arthritis, involving unspecified site, unspecified whether rheumatoid factor present ([facility]) Mixed anxiety depressive disorder- Primary Dysthymic 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 Encounter for immunization Need for other specified prophylactic vaccination against single bacterial disease Essential hypertension, benign documented in this encounter [facility] note* Diagnosis Post-COVID syndrome Acute cough Essential hypertension, benign- 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 Anemia, unspecified type Fatigue, unspecified type Gastroesophageal reflux disease, unspecified whether esophagitis present Mixed anxiety depressive disorder Dysthymic disorder Hyperlipidemia, unspecified hyperlipidemia type Immunocompromised state (HCC) Unspecified immunity deficiency Stage 3b chronic kidney disease ([facility]) documented in this encounter [facility] note* Diagnosis Essential hypertension, benign- 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 Anemia, unspecified type Fatigue, unspecified type Gastroesophageal reflux disease, unspecified whether esophagitis present Mixed anxiety depressive disorder Dysthymic disorder Hyperlipidemia, unspecified hyperlipidemia type Immunocompromised state ([facility]) Unspecified immunity deficiency Stage 3b chronic kidney disease (HCC) ELLIS (middle ear effusion), right- Primary Rheumatoid arthritis, involving unspecified site, unspecified whether rheumatoid factor present (HCC) Itch- Primary Unspecified pruritic disorder Essential hypertension, benign Mixed anxiety depressive disorder Dysthymic 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 Stage 3b chronic kidney disease (HCC) Chronic fatigue Other malaise and fatigue Urinary frequency Memory loss 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) Immunocompromised state (HCC) Unspecified immunity deficiency Rheumatoid arthritis, involving unspecified site, unspecified whether rheumatoid factor present (HCC) Burning with urination- Primary Dysuria [facility] Diagnosis Chronic cough Cough Essential hypertension, benign- 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 Anemia, unspecified type Fatigue, unspecified type Gastroesophageal reflux disease, unspecified whether esophagitis present Mixed anxiety depressive disorder Dysthymic disorder Hyperlipidemia, unspecified hyperlipidemia type Immunocompromised state (HCC) Unspecified immunity deficiency Stage 3b chronic kidney disease (HCC) documented in this encounter [facility] note* Diagnosis Chronic pain of left knee Pain in joint, lower leg Essential hypertension, benign- 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 Anemia, unspecified type Fatigue, unspecified type Gastroesophageal reflux disease, unspecified whether esophagitis present Mixed anxiety depressive disorder Dysthymic disorder Hyperlipidemia, unspecified hyperlipidemia type Immunocompromised state ([facility]) Unspecified immunity deficiency Stage 3b chronic kidney disease ([facility]) [facility]* Diagnosis Essential hypertension, benign- 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 Anemia, unspecified type Fatigue, unspecified type Gastroesophageal reflux disease, unspecified whether esophagitis present Mixed anxiety depressive disorder Dysthymic disorder Hyperlipidemia, unspecified hyperlipidemia type Immunocompromised state (HCC) Unspecified immunity deficiency Stage 3b chronic kidney disease (HCC) ELLIS (middle ear effusion), right- Primary Rheumatoid arthritis, involving unspecified site, unspecified whether rheumatoid factor present ([facility]) Itch- Primary Unspecified pruritic disorder Essential hypertension, benign Mixed anxiety depressive disorder Dysthymic 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 Stage 3b chronic kidney disease (HCC) Chronic fatigue Other malaise and fatigue Urinary frequency Memory loss 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) Immunocompromised state (HCC) Unspecified immunity deficiency Rheumatoid arthritis, involving unspecified site, unspecified whether rheumatoid factor present (HCC) Urinary tract infection with hematuria, site unspecified- Primary [facility]* Diagnosis Hypothyroidism due to acquired atrophy of thyroid documented in this encounter [facility] note* Diagnosis Essential hypertension, benign- 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 Anemia, unspecified type Fatigue, unspecified type Gastroesophageal reflux disease, unspecified whether esophagitis present Mixed anxiety depressive disorder Dysthymic disorder Hyperlipidemia, unspecified hyperlipidemia type Immunocompromised state (HCC) Unspecified immunity deficiency Stage 3b chronic kidney disease (HCC) ELLIS (middle ear effusion), right- Primary Rheumatoid arthritis, involving unspecified site, unspecified whether rheumatoid factor present (HCC) Itch- Primary Unspecified pruritic disorder Essential hypertension, benign Mixed anxiety depressive disorder Dysthymic 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 Stage 3b chronic kidney disease (HCC) Chronic fatigue Other malaise and fatigue Urinary frequency Memory loss 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) Immunocompromised state (HCC) Unspecified immunity deficiency Rheumatoid arthritis, involving unspecified site, unspecified whether rheumatoid factor present (HCC) CLL (chronic lymphocytic leukemia) ([facility])- Primary Chronic lymphoid leukemia, without mention of having achieved remission [facility]* Diagnosis Essential hypertension, benign- 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 Anemia, unspecified type Fatigue, unspecified type Gastroesophageal reflux disease, unspecified whether esophagitis present Mixed anxiety depressive disorder Dysthymic disorder Hyperlipidemia, unspecified hyperlipidemia type Immunocompromised state (HCC) Unspecified immunity deficiency Stage 3b chronic kidney disease (HCC) ELLIS (middle ear effusion), right- Primary Rheumatoid arthritis, involving unspecified site, unspecified whether rheumatoid factor present (HCC) Itch- Primary Unspecified pruritic disorder Essential hypertension, benign Mixed anxiety depressive disorder Dysthymic 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 Stage 3b chronic kidney disease (HCC) Chronic fatigue Other malaise and fatigue Urinary frequency Memory loss 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) Immunocompromised state (HCC) Unspecified immunity deficiency Rheumatoid arthritis, involving unspecified site, unspecified whether rheumatoid factor present (HCC) Essential hypertension, benign Hypothyroidism due to acquired atrophy of thyroid [facility]* Diagnosis Essential hypertension, benign- 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 Anemia, unspecified type Fatigue, unspecified type Gastroesophageal reflux disease, unspecified whether esophagitis present Mixed anxiety depressive disorder Dysthymic disorder Hyperlipidemia, unspecified hyperlipidemia type Immunocompromised state (HCC) Unspecified immunity deficiency Stage 3b chronic kidney disease (HCC) ELLIS (middle ear effusion), right- Primary Rheumatoid arthritis, involving unspecified site, unspecified whether rheumatoid factor present (HCC) Itch- Primary Unspecified pruritic disorder Essential hypertension, benign Mixed anxiety depressive disorder Dysthymic 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 Stage 3b chronic kidney disease (HCC) Chronic fatigue Other malaise and fatigue Urinary frequency Memory loss 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) Immunocompromised state (HCC) Unspecified immunity deficiency Rheumatoid arthritis, involving unspecified site, unspecified whether rheumatoid factor present (HCC) CLL (chronic lymphocytic leukemia) (HCC) Chronic lymphoid leukemia, without mention of having achieved remission [facility]* Diagnosis Essential hypertension, benign- 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 Anemia, unspecified type Fatigue, unspecified type Gastroesophageal reflux disease, unspecified whether esophagitis present Mixed anxiety depressive disorder Dysthymic disorder Hyperlipidemia, unspecified hyperlipidemia type Immunocompromised state (HCC) Unspecified immunity deficiency Stage 3b chronic kidney disease (HCC) ELLIS (middle ear effusion), right- Primary Rheumatoid arthritis, involving unspecified site, unspecified whether rheumatoid factor present (HCC) Itch- Primary Unspecified pruritic disorder Essential hypertension, benign Mixed anxiety depressive disorder Dysthymic 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 Stage 3b chronic kidney disease (HCC) Chronic fatigue Other malaise and fatigue Urinary frequency Memory loss 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) Immunocompromised state ([facility]) Unspecified immunity deficiency Rheumatoid arthritis, involving unspecified site, unspecified whether rheumatoid factor present (HCC) Acute cough- Primary Flu-like symptoms Other general symptoms Acute upper respiratory infection, unspecified Acute cough documented in this encounter [facility] note* Diagnosis Essential hypertension, benign- 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 Anemia, unspecified type Fatigue, unspecified type Gastroesophageal reflux disease, unspecified whether esophagitis present Mixed anxiety depressive disorder Dysthymic disorder Hyperlipidemia, unspecified hyperlipidemia type Immunocompromised state ([facility]) Unspecified immunity deficiency Stage 3b chronic kidney disease (HCC) ELLIS (middle ear effusion), right- Primary Rheumatoid arthritis, involving unspecified site, unspecified whether rheumatoid factor present (HCC) Itch- Primary Unspecified pruritic disorder Essential hypertension, benign Mixed anxiety depressive disorder Dysthymic 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 Stage 3b chronic kidney disease (HCC) Chronic fatigue Other malaise and fatigue Urinary frequency Memory loss 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) Immunocompromised state (HCC) Unspecified immunity deficiency Rheumatoid arthritis, involving unspecified site, unspecified whether rheumatoid factor present ([facility]) Acute cough documented in this encounter [facility] note* Diagnosis Essential hypertension, benign- 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 Anemia, unspecified type Fatigue, unspecified type Gastroesophageal reflux disease, unspecified whether esophagitis present Mixed anxiety depressive disorder Dysthymic disorder Hyperlipidemia, unspecified hyperlipidemia type Immunocompromised state (HCC) Unspecified immunity deficiency Stage 3b chronic kidney disease (HCC) ELLIS (middle ear effusion), right- Primary Rheumatoid arthritis, involving unspecified site, unspecified whether rheumatoid factor present (HCC) Itch- Primary Unspecified pruritic disorder Essential hypertension, benign Mixed anxiety depressive disorder Dysthymic 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 Stage 3b chronic kidney disease (HCC) Chronic fatigue Other malaise and fatigue Urinary frequency Memory loss 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) Immunocompromised state (HCC) Unspecified immunity deficiency Rheumatoid arthritis, involving unspecified site, unspecified whether rheumatoid factor present (HCC) CLL (chronic lymphocytic leukemia) ([facility])- Primary Chronic lymphoid leukemia, without mention of having achieved remission [facility]* Diagnosis Essential hypertension, benign- 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 Anemia, unspecified type Fatigue, unspecified type Gastroesophageal reflux disease, unspecified whether esophagitis present Mixed anxiety depressive disorder Dysthymic disorder Hyperlipidemia, unspecified hyperlipidemia type Immunocompromised state (HCC) Unspecified immunity deficiency Stage 3b chronic kidney disease (HCC) ELLIS (middle ear effusion), right- Primary Rheumatoid arthritis, involving unspecified site, unspecified whether rheumatoid factor present (HCC) Itch- Primary Unspecified pruritic disorder Essential hypertension, benign Mixed anxiety depressive disorder Dysthymic 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 Stage 3b chronic kidney disease (HCC) Chronic fatigue Other malaise and fatigue Urinary frequency Memory loss 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) Immunocompromised state (HCC) Unspecified immunity deficiency Rheumatoid arthritis, involving unspecified site, unspecified whether rheumatoid factor present (HCC) CLL (chronic lymphocytic leukemia) ([facility])- Primary Chronic lymphoid leukemia, without mention of having achieved remission [facility]* Diagnosis Essential hypertension, benign- 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 Anemia, unspecified type Fatigue, unspecified type Gastroesophageal reflux disease, unspecified whether esophagitis present Mixed anxiety depressive disorder Dysthymic disorder Hyperlipidemia, unspecified hyperlipidemia type Immunocompromised state (HCC) Unspecified immunity deficiency Stage 3b chronic kidney disease (HCC) ELLIS (middle ear effusion), right- Primary Rheumatoid arthritis, involving unspecified site, unspecified whether rheumatoid factor present (HCC) Itch- Primary Unspecified pruritic disorder Essential hypertension, benign Mixed anxiety depressive disorder Dysthymic 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 Stage 3b chronic kidney disease (HCC) Chronic fatigue Other malaise and fatigue Urinary frequency Memory loss 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) Immunocompromised state (HCC) Unspecified immunity deficiency Rheumatoid arthritis, involving unspecified site, unspecified whether rheumatoid factor present (HCC) Mixed anxiety depressive disorder Dysthymic disorder documented in this encounter [facility] note* Diagnosis Essential hypertension, benign- 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 Anemia, unspecified type Fatigue, unspecified type Gastroesophageal reflux disease, unspecified whether esophagitis present Mixed anxiety depressive disorder Dysthymic disorder Hyperlipidemia, unspecified hyperlipidemia type Immunocompromised state ([facility]) Unspecified immunity deficiency Stage 3b chronic kidney disease (HCC) ELLIS (middle ear effusion), right- Primary Rheumatoid arthritis, involving unspecified site, unspecified whether rheumatoid factor present ([facility]) Itch- Primary Unspecified pruritic disorder Essential hypertension, benign Mixed anxiety depressive disorder Dysthymic 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 Stage 3b chronic kidney disease (HCC) Chronic fatigue Other malaise and fatigue Urinary frequency Memory loss 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) Immunocompromised state ([facility]) Unspecified immunity deficiency Rheumatoid arthritis, involving unspecified site, unspecified whether rheumatoid factor present ([facility]) Dysuria- Primary Vaginal yeast infection Candidiasis of vulva and vagina documented in this encounter [facility] note* Diagnosis Essential hypertension, benign- 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 Anemia, unspecified type Fatigue, unspecified type Gastroesophageal reflux disease, unspecified whether esophagitis present Mixed anxiety depressive disorder Dysthymic disorder Hyperlipidemia, unspecified hyperlipidemia type Immunocompromised state (HCC) Unspecified immunity deficiency Stage 3b chronic kidney disease (HCC) ELLIS (middle ear effusion), right- Primary Rheumatoid arthritis, involving unspecified site, unspecified whether rheumatoid factor present (HCC) Itch- Primary Unspecified pruritic disorder Essential hypertension, benign Mixed anxiety depressive disorder Dysthymic 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 Stage 3b chronic kidney disease (HCC) Chronic fatigue Other malaise and fatigue Urinary frequency Memory loss 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) Immunocompromised state (HCC) Unspecified immunity deficiency Rheumatoid arthritis, involving unspecified site, unspecified whether rheumatoid factor present (HCC) Recurrent UTI (urinary tract infection)- Primary Urinary tract infection, site not specified [facility]* Diagnosis Essential hypertension, benign- 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 Anemia, unspecified type Fatigue, unspecified type Gastroesophageal reflux disease, unspecified whether esophagitis present Mixed anxiety depressive disorder Dysthymic disorder Hyperlipidemia, unspecified hyperlipidemia type Immunocompromised state (HCC) Unspecified immunity deficiency Stage 3b chronic kidney disease (HCC) ELLIS (middle ear effusion), right- Primary Rheumatoid arthritis, involving unspecified site, unspecified whether rheumatoid factor present (HCC) Itch- Primary Unspecified pruritic disorder Essential hypertension, benign Mixed anxiety depressive disorder Dysthymic 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 Stage 3b chronic kidney disease (HCC) Chronic fatigue Other malaise and fatigue Urinary frequency Memory loss 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) Immunocompromised state (HCC) Unspecified immunity deficiency Rheumatoid arthritis, involving unspecified site, unspecified whether rheumatoid factor present (HCC) CLL (chronic lymphocytic leukemia) ([facility])- Primary Chronic lymphoid leukemia, without mention of having achieved remission documented in this encounter [facility] note* Diagnosis Essential hypertension, benign- 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 Anemia, unspecified type Fatigue, unspecified type Gastroesophageal reflux disease, unspecified whether esophagitis present Mixed anxiety depressive disorder Dysthymic disorder Hyperlipidemia, unspecified hyperlipidemia type Immunocompromised state (HCC) Unspecified immunity deficiency Stage 3b chronic kidney disease (HCC) ELLIS (middle ear effusion), right- Primary Rheumatoid arthritis, involving unspecified site, unspecified whether rheumatoid factor present (HCC) Itch- Primary Unspecified pruritic disorder Essential hypertension, benign Mixed anxiety depressive disorder Dysthymic 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 Stage 3b chronic kidney disease (HCC) Chronic fatigue Other malaise and fatigue Urinary frequency Memory loss 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) Immunocompromised state (HCC) Unspecified immunity deficiency Rheumatoid arthritis, involving unspecified site, unspecified whether rheumatoid factor present (HCC) CLL (chronic lymphocytic leukemia) ([facility])- Primary Chronic lymphoid leukemia, without mention of having achieved remission documented in this encounter [facility] note* Diagnosis Essential hypertension, benign- 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 Anemia, unspecified type Fatigue, unspecified type Gastroesophageal reflux disease, unspecified whether esophagitis present Mixed anxiety depressive disorder Dysthymic disorder Hyperlipidemia, unspecified hyperlipidemia type Immunocompromised state (HCC) Unspecified immunity deficiency Stage 3b chronic kidney disease (HCC) ELLIS (middle ear effusion), right- Primary Rheumatoid arthritis, involving unspecified site, unspecified whether rheumatoid factor present (HCC) Itch- Primary Unspecified pruritic disorder Essential hypertension, benign Mixed anxiety depressive disorder Dysthymic 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 Stage 3b chronic kidney disease (HCC) Chronic fatigue Other malaise and fatigue Urinary frequency Memory loss 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) Immunocompromised state (HCC) Unspecified immunity deficiency Rheumatoid arthritis, involving unspecified site, unspecified whether rheumatoid factor present (HCC) CLL (chronic lymphocytic leukemia) (HCC) Chronic lymphoid leukemia, without mention of having achieved remission [facility]* Diagnosis Essential hypertension, benign- 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 Anemia, unspecified type Fatigue, unspecified type Gastroesophageal reflux disease, unspecified whether esophagitis present Mixed anxiety depressive disorder Dysthymic disorder Hyperlipidemia, unspecified hyperlipidemia type Immunocompromised state (HCC) Unspecified immunity deficiency Stage 3b chronic kidney disease (HCC) ELLIS (middle ear effusion), right- Primary Rheumatoid arthritis, involving unspecified site, unspecified whether rheumatoid factor present (HCC) Itch- Primary Unspecified pruritic disorder Essential hypertension, benign Mixed anxiety depressive disorder Dysthymic 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 Stage 3b chronic kidney disease (HCC) Chronic fatigue Other malaise and fatigue Urinary frequency Memory loss 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) Immunocompromised state (HCC) Unspecified immunity deficiency Rheumatoid arthritis, involving unspecified site, unspecified whether rheumatoid factor present (HCC) CLL (chronic lymphocytic leukemia) (HCC)- Primary Chronic lymphoid leukemia, without mention of having achieved remission [facility]* Diagnosis Essential hypertension, benign- 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 Anemia, unspecified type Fatigue, unspecified type Gastroesophageal reflux disease, unspecified whether esophagitis present Mixed anxiety depressive disorder Dysthymic disorder Hyperlipidemia, unspecified hyperlipidemia type Immunocompromised state (HCC) Unspecified immunity deficiency Stage 3b chronic kidney disease (HCC) ELLIS (middle ear effusion), right- Primary Rheumatoid arthritis, involving unspecified site, unspecified whether rheumatoid factor present (HCC) Itch- Primary Unspecified pruritic disorder Essential hypertension, benign Mixed anxiety depressive disorder Dysthymic 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 Stage 3b chronic kidney disease (HCC) Chronic fatigue Other malaise and fatigue Urinary frequency Memory loss 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) Immunocompromised state (HCC) Unspecified immunity deficiency Rheumatoid arthritis, involving unspecified site, unspecified whether rheumatoid factor present (HCC) CLL (chronic lymphocytic leukemia) ([facility])- Primary Chronic lymphoid leukemia, without mention of having achieved remission [facility] Diagnosis Essential hypertension, benign- 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 Anemia, unspecified type Fatigue, unspecified type Gastroesophageal reflux disease, unspecified whether esophagitis present Mixed anxiety depressive disorder Dysthymic disorder Hyperlipidemia, unspecified hyperlipidemia type Immunocompromised state (HCC) Unspecified immunity deficiency Stage 3b chronic kidney disease (HCC) ELLIS (middle ear effusion), right- Primary Rheumatoid arthritis, involving unspecified site, unspecified whether rheumatoid factor present ([facility]) Itch- Primary Unspecified pruritic disorder Essential hypertension, benign Mixed anxiety depressive disorder Dysthymic 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 Stage 3b chronic kidney disease (HCC) Chronic fatigue Other malaise and fatigue Urinary frequency Memory loss 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) Immunocompromised state ([facility]) Unspecified immunity deficiency Rheumatoid arthritis, involving unspecified site, unspecified whether rheumatoid factor present ([facility]) Hypothyroidism due to acquired atrophy of thyroid [facility] Diagnosis Essential hypertension, benign- 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 Anemia, unspecified type Fatigue, unspecified type Gastroesophageal reflux disease, unspecified whether esophagitis present Mixed anxiety depressive disorder Dysthymic disorder Hyperlipidemia, unspecified hyperlipidemia type Immunocompromised state ([facility]) Unspecified immunity deficiency Stage 3b chronic kidney disease (HCC) ELLIS (middle ear effusion), right- Primary Rheumatoid arthritis, involving unspecified site, unspecified whether rheumatoid factor present (HCC) Itch- Primary Unspecified pruritic disorder Essential hypertension, benign Mixed anxiety depressive disorder Dysthymic 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 Stage 3b chronic kidney disease (HCC) Chronic fatigue Other malaise and fatigue Urinary frequency Memory loss 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) Immunocompromised state (HCC) Unspecified immunity deficiency Rheumatoid arthritis, involving unspecified site, unspecified whether rheumatoid factor present (HCC) Fatigue, unspecified type- Primary Mixed anxiety depressive disorder Dysthymic disorder Nausea Nausea alone UTI symptoms Other symptoms involving urinary system Hypothyroidism due to acquired atrophy of thyroid Gastroesophageal reflux disease, unspecified whether esophagitis present Hyperlipidemia, unspecified hyperlipidemia type documented in this encounter [facility] note* Diagnosis Essential hypertension, benign- 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 Anemia, unspecified type Fatigue, unspecified type Gastroesophageal reflux disease, unspecified whether esophagitis present Mixed anxiety depressive disorder Dysthymic disorder Hyperlipidemia, unspecified hyperlipidemia type Immunocompromised state (HCC) Unspecified immunity deficiency Stage 3b chronic kidney disease (HCC) ELLIS (middle ear effusion), right- Primary Rheumatoid arthritis, involving unspecified site, unspecified whether rheumatoid factor present (HCC) Itch- Primary Unspecified pruritic disorder Essential hypertension, benign Mixed anxiety depressive disorder Dysthymic 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 Stage 3b chronic kidney disease (HCC) Chronic fatigue Other malaise and fatigue Urinary frequency Memory loss 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) Immunocompromised state ([facility]) Unspecified immunity deficiency Rheumatoid arthritis, involving unspecified site, unspecified whether rheumatoid factor present ([facility]) CLL (chronic lymphocytic leukemia) ([facility])- Primary Chronic lymphoid leukemia, without mention of having achieved remission documented in this encounter [facility] note* Diagnosis Essential hypertension, benign- 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 Anemia, unspecified type Fatigue, unspecified type Gastroesophageal reflux disease, unspecified whether esophagitis present Mixed anxiety depressive disorder Dysthymic disorder Hyperlipidemia, unspecified hyperlipidemia type Immunocompromised state ([facility]) Unspecified immunity deficiency Stage 3b chronic kidney disease (HCC) ELLIS (middle ear effusion), right- Primary Rheumatoid arthritis, involving unspecified site, unspecified whether rheumatoid factor present (HCC) Itch- Primary Unspecified pruritic disorder Essential hypertension, benign Mixed anxiety depressive disorder Dysthymic 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 Stage 3b chronic kidney disease (HCC) Chronic fatigue Other malaise and fatigue Urinary frequency Memory loss 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) Immunocompromised state (HCC) Unspecified immunity deficiency Rheumatoid arthritis, involving unspecified site, unspecified whether rheumatoid factor present (HCC) Acute right-sided low back pain without sciatica- Primary Acute right-sided low back pain without sciatica documented in this encounter [facility] note* Diagnosis Essential hypertension, benign- 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 Anemia, unspecified type Fatigue, unspecified type Gastroesophageal reflux disease, unspecified whether esophagitis present Mixed anxiety depressive disorder Dysthymic disorder Hyperlipidemia, unspecified hyperlipidemia type Immunocompromised state (HCC) Unspecified immunity deficiency Stage 3b chronic kidney disease (HCC) ELLIS (middle ear effusion), right- Primary Rheumatoid arthritis, involving unspecified site, unspecified whether rheumatoid factor present (HCC) Itch- Primary Unspecified pruritic disorder Essential hypertension, benign Mixed anxiety depressive disorder Dysthymic 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 Stage 3b chronic kidney disease (HCC) Chronic fatigue Other malaise and fatigue Urinary frequency Memory loss 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) Immunocompromised state (HCC) Unspecified immunity deficiency Rheumatoid arthritis, involving unspecified site, unspecified whether rheumatoid factor present (HCC) Acute right-sided low back pain without sciatica [facility]* Diagnosis Essential hypertension, benign- 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 Anemia, unspecified type Fatigue, unspecified type Gastroesophageal reflux disease, unspecified whether esophagitis present Mixed anxiety depressive disorder Dysthymic disorder Hyperlipidemia, unspecified hyperlipidemia type Immunocompromised state (HCC) Unspecified immunity deficiency Stage 3b chronic kidney disease (HCC) ELLIS (middle ear effusion), right- Primary Rheumatoid arthritis, involving unspecified site, unspecified whether rheumatoid factor present (HCC) Itch- Primary Unspecified pruritic disorder Essential hypertension, benign Mixed anxiety depressive disorder Dysthymic 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 Stage 3b chronic kidney disease (HCC) Chronic fatigue Other malaise and fatigue Urinary frequency Memory loss 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) Immunocompromised state (HCC) Unspecified immunity deficiency Rheumatoid arthritis, involving unspecified site, unspecified whether rheumatoid factor present (HCC) CLL (chronic lymphocytic leukemia) ([facility])- Primary Chronic lymphoid leukemia, without mention of having achieved remission [facility]* Diagnosis Essential hypertension, benign- 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 Anemia, unspecified type Fatigue, unspecified type Gastroesophageal reflux disease, unspecified whether esophagitis present Mixed anxiety depressive disorder Dysthymic disorder Hyperlipidemia, unspecified hyperlipidemia type Immunocompromised state (HCC) Unspecified immunity deficiency Stage 3b chronic kidney disease (HCC) ELLIS (middle ear effusion), right- Primary Rheumatoid arthritis, involving unspecified site, unspecified whether rheumatoid factor present (HCC) Itch- Primary Unspecified pruritic disorder Essential hypertension, benign Mixed anxiety depressive disorder Dysthymic 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 Stage 3b chronic kidney disease (HCC) Chronic fatigue Other malaise and fatigue Urinary frequency Memory loss 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) Immunocompromised state (HCC) Unspecified immunity deficiency Rheumatoid arthritis, involving unspecified site, unspecified whether rheumatoid factor present (HCC) CLL (chronic lymphocytic leukemia) (HCC)- Primary Chronic lymphoid leukemia, without mention of having achieved remission documented in this encounter [facility] note* Diagnosis Essential hypertension, benign- 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 Anemia, unspecified type Fatigue, unspecified type Gastroesophageal reflux disease, unspecified whether esophagitis present Mixed anxiety depressive disorder Dysthymic disorder Hyperlipidemia, unspecified hyperlipidemia type Immunocompromised state (HCC) Unspecified immunity deficiency Stage 3b chronic kidney disease (HCC) ELLIS (middle ear effusion), right- Primary Rheumatoid arthritis, involving unspecified site, unspecified whether rheumatoid factor present (HCC) Itch- Primary Unspecified pruritic disorder Essential hypertension, benign Mixed anxiety depressive disorder Dysthymic 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 Stage 3b chronic kidney disease (HCC) Chronic fatigue Other malaise and fatigue Urinary frequency Memory loss 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) Immunocompromised state ([facility]) Unspecified immunity deficiency Rheumatoid arthritis, involving unspecified site, unspecified whether rheumatoid factor present (HCC) Fatigue, unspecified type- Primary Major depressive disorder with single episode, in remission Essential (primary) hypertension Unspecified essential hypertension Memory loss documented in this encounter [facility] note* Diagnosis Essential hypertension, benign- 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 Anemia, unspecified type Fatigue, unspecified type Gastroesophageal reflux disease, unspecified whether esophagitis present Mixed anxiety depressive disorder Dysthymic disorder Hyperlipidemia, unspecified hyperlipidemia type Immunocompromised state (HCC) Unspecified immunity deficiency Stage 3b chronic kidney disease (HCC) ELLIS (middle ear effusion), right- Primary Rheumatoid arthritis, involving unspecified site, unspecified whether rheumatoid factor present (HCC) Itch- Primary Unspecified pruritic disorder Essential hypertension, benign Mixed anxiety depressive disorder Dysthymic 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 Stage 3b chronic kidney disease (HCC) Chronic fatigue Other malaise and fatigue Urinary frequency Memory loss 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 This will help prevent recurrent constipation. If you start developing liquidy stools then you will need to reduce the MiraLAX to only once a day. Please continue your oxycodone secondary to your recent knee surgery but I do feel narcotics were the cause of your constipation. By doing the above bowel regiment with hydration MiraLAX twice a day and senna this should prevent any recurrent episodes. If you have any further concerns [facility] Hospital Discharge instructions Additional Instructions Use ice. Use walker as needed to help with ambulation. Wear Randy wrap to your ankle to help with the swelling and bruising. Wear the walking boot as needed for stability of your ankle/foot. Do not take Tylenol in addition to the pain medicine you are prescribed as there is already Tylenol in it. Take daily MiraLAX to help with opioid-induced constipation. If you feel you cannot function at home with the pain is too severe please return to the emergency room.[facility] Work Phone: Reason for referral (narrative)* Outpatient Procedure (Routine) - Pending Review Specialty Diagnoses / Procedures Referred By Kiara hahn Referred To Contact [facility] Diagnoses Chronic fatigue SOB (shortness of breath) Procedures ECHO ECHO TTHRC R-T 2D W/WOM-MODE COMPL SPEC&COLR D Urban Kruger APRN.TRACE KOHLER [address] [place] [address] [facility] [place] [address] [place] [address] Referral ID Status Reason Start Date Expiration Date Visits Requested Visits Authorized [id number] Pending Review Auto-Generat ed Referral 06/20/2021 06/13/2022 1 1 [facility] for referral (narrative)* Outpatient Procedure (Routine) - Authorized Specialty Diagnoses / Procedures Referred By Kiara hahn Referred To Contact [facility] [place] Diagnoses Chest pain, unspecified type Procedures ECG COMPLETE ECG ROUTINE ECG W/LEAST 12 LDS W/I&R Jane Baig APRN.[employer] W[employer]ER [address] [place] [address] [facility] [address] [address] Referral ID Status Reason Start Date Expiration Date Visits Requested Visits Authorized [id number] Authorized Auto-Generat ed Referral 09/15/2021 09/15/2022 1 1 [facility] for referral (narrative)* Outpatient Procedure (Routine) - Authorized Specialty Diagnoses / Procedures Referred By Contac t Referred [facility] Diagnoses Syncope, unspecified syncope type Procedures US CAROTID ARTERIES [facility] DUPLEX SCAN EXTRACRANIAL ART COMPL BI STUDY Jane Baig APRN.[employer] [address] [place] [address] [facility] [address] [address] Referral ID Status Reason Start Date Expiration Date Visits Requested Visits Authorized [id number] Authorized Auto-Generat ed Referral 07/15/2023 07/14/2024 1 1 * MRI/CT (Routine) - Authorized Specialty Diagnoses / Procedures Referred By Contac t Referred To Contact MR IMAGING Diagnoses Transient cerebral ischemia, unspecified type Procedures MRI BRAIN WO IVCON MRI BRAIN BRAIN STEM W/O CONTRAST MATERIAL Jane Baig APRN.[employer] [address] [place] [address] [facility] Imaging [id number] Referral ID Status Reason Start Date Expiration Date Visits Requested Visits Authorized [id number] Authorized Auto-Generat ed Referral 07/15/2023 08/13/2024 1 1 [facility] for referral (narrative)* Diagnostic Procedure Only (Routine) - Closed Specialty Diagnoses / Procedures Referred By Contac t Referred To Contact XR IMAGING Diagnoses Finger pain, left Procedures XR DIGIT GENERAL 3V FRONTAL/LAT/OBL LEFT RADEX FINGR MINIMUM 2 VIEWS Jane Baig APRN.[employer] [address] [place] [address] [place] [address] Referral ID Status Reason Start Date Expiration Date V isits Requested Visits Authorized [id number] Closed Auto-Generate d Referral 10/07/2023 11/05/2024 1 1 [facility] for referral (narrative)* Diagnostic Procedure Only (Routine) - Closed Specialty Diagnoses / Procedures Referred By Contac t Referred To Contact XR IMAGING Diagnoses Finger pain, left Procedures XR DIGIT GENERAL 3V FRONTAL/LAT/OBL LEFT RADEX FINGR MINIMUM 2 VIEWS Jane Baig APRN.[employer] [address] [place] [address] [place] [address] Referral ID Status Reason Start Date Expiration Date V isits Requested Visits Authorized [id number] Closed Auto-Generate d Referral 10/07/2023 11/05/2024 1 1 [facility] for referral (narrative)No reason for referral information availableWThe [facility] Work Phone: Reason for visit Narrative* Diagnostic Procedure Only (Routine) - Closed Specialty Diagnoses / Procedures Referred By Contac t Referred To Contact XR IMAGING Diagnoses Finger pain, left Procedures XR DIGIT GENERAL 3V FRONTAL/LAT/OBL LEFT RADEX FINGR MINIMUM 2 VIEWS Jane Baig APRN.[employer] [address] [place] [address] [place] [address] Referral ID Status Reason Start Date Expiration Date V isits Requested Visits Authorized [id number] Closed Auto-Generate d Referral 10/07/2023 11/05/2024 1 1 [facility] for visit Narrative* Diagnostic Procedure Only (Urgent) - Closed Specialty Diagnoses / Procedures Referred By Contac t Referred To Contact XR IMAGING Diagnoses Acute right-sided low back pain without sciatica Procedures XR LUMBAR GENERAL 3V AP/LAT/L5-S1 RADEX SPINE LUMBOSACRAL 2/3 VIEWS Dawn Cisneros, VARNISH FILTERER.[employer] [address] [facility] [place] [address] Phone: tel: fax: [place] [address] Referral ID Status Reason Start Date Expiration Date V isits Requested Visits Authorized [id number] Closed Auto-Generate d Referral 10/04/2024 11/03/2025 1 1 [facility] Chief Complaint and Reason for Visit Chief Complaint SOB Amb Documentation Amb Documentation PALPS (CRISTINA TAYLOR) EORDER Reason for Visit Essential hypertensi on Sinus bradycardia Chief Complaint SOB Amb Documentation Amb Documentation PALPS (CRISTINA TAYLOR) EORDER BRADYCARDIA Reason for Visit Essential hypertensi on Sinus bradycardia Chief Complaint SOB Amb Documentation Amb Documentation PALPS (CRISTINA TAYLOR) EORDER BRADYCARDIA BRADYCARDIA Reason for Visit Essential hypertensi on Sinus bradycardia Chief Complaint SOB Amb Documentation Amb Documentation PALPS (CRISTINA TAYLOR) EORDER BRADYCARDIA BRADYCARDIA CHEST PAIN Reason for Visit Essential hypertensi on Sinus bradycardia Acute dyspnea Chest pain Chief Complaint SOB Amb Documentation Amb Documentation PALPS (CRISTINA TAYLOR) EORDER BRADYCARDIA BRADYCARDIA CHEST PAIN CHEST PAIN CHEST PAIN CHEST PAIN Reason for Visit Essential hypertensi on Sinus bradycardia Acute dyspnea Chest pain Chief Complaint BRADYCARDIA BRADYCARDIA CHEST PAIN CHEST PAIN CHEST PAIN CHEST PAIN CHEST PAIN sob Reason for Visit Acute dyspnea Chest pain Chief Complaint BRADYCARDIA BRADYCARDIA CHEST PAIN CHEST PAIN CHEST PAIN CHEST PAIN CHEST PAIN sob SYNCOPE, WEAKNESS,+COVID Reason for Visit Acute dyspnea Chest pain Chief Complaint BRADYCARDIA BRADYCARDIA CHEST PAIN CHEST PAIN CHEST PAIN CHEST PAIN CHEST PAIN sob SYNCOPE, WEAKNESS,+COVID COVID-19 covid positive Reason for Visit Acute dyspnea Chest pain COVID-19 Immunocompromised state CKD (chronic kidney disease) stage 3, GFR 30-59 ml/min CLL (chronic lymphocytic leukemia) Chief Complaint constipation Chief Complaint constipation FALL Chief Complaint Admit Date Localized swelling, mass and lump, right lower suggs July 28, 2024 1:34pm Family History No Family History Records Found Relationship Condition Age at Onset Recorded Date/T jesse mother Cerebrovascular accident (CVA) Unknown Hypertension Unknown father Cardiac disease Unknown sister Malignant neoplasm Unknown grandmother Diabetes mellitus Unknown sister Disorder of thyroid Unknown Advance Directives No Advanced Directives Records Found Advance Directive Response Recorded Date/ Time Living Will Yes May 16, 2021 12:45pm Power of Enterprise Sales Executive Yes May 16 12:45pm Advance Directive Response Recorded Date/ Time Name of Medical Power of Enterprise Sales Executive olvin murphyc nasra- May 16, 2021 12:45pm Name of Medical Power of Enterprise Sales Executive OLVIN Ewing August 31, 2021 3:10pm Living Will No August 31, 2021 3 :10pm Power of Enterprise Sales Executive Yes August 31, 2021 3:10pm Advance Directive Response Recorded Date/ Time Name of Medical Power of Enterprise Sales Executive olvin ewing- May 16, 2021 12:45pm Name of Medical Power of Enterprise Sales Executive olvin August 31, 2021 5:47pm Living Will Yes August 31, 2021 5 :47pm Power of Enterprise Sales Executive Yes August 31, 2021 5:47pm Advance Directive Response Recorded Date/ Time Name of Medical Power of Enterprise Sales Executive olvin August 31, 2021 5:47pm Name of Medical Power of Enterprise Sales Executive olvin ewing November 07, 2021 5:43am Living Will Yes November 07, 2021 5:43am Power of Enterprise Sales Executive Yes October 5:43am Advance Directive Response Recorded Date/ Time Name of Medical Power of Enterprise Sales Executive olvin August 31, 2021 5:47pm Name of Medical Power of Enterprise Sales Executive olvin ewing November 07, 2021 5:43am Name of Medical Power of Enterprise Sales Executive olvin ewing November 07, 2021 8:29pm Living Will Yes November 07, 2021 8:29pm Power of Enterprise Sales Executive Yes October 8:29pm Advance Directive Response Recorded Date/ Time Living Will No May 27, 2022 4:52am Power of Enterprise Sales Executive No May 27 4:52am Advance Directive Response Recorded Date/ Time Name of Medical Power of Enterprise Sales Executive June 29, 2022 11:57am Living Will Yes June 29, 2022 11 :57am Power of Enterprise Sales Executive Yes June 29, 2022 11:57am Health Concerns Infection Onset Date Last Indicated Resolved Time COVID-19 Rule-Out 11/06/2021 11/06/2021 Infection Onset Date Last Indicated Resolved Time COVID-19 Rule-Out 11/06/2021 11/06/2021 11/07/2021 12:20 AM EDT COVID-19 Confirmed 11/06/2021 11/06/2021 Infection Onset Date Last Indicated Resolved Time COVID-19 Confirmed 11/06/2021 11/06/2021 Summary Purpose Reason for Referral Specialty Diagnoses / Procedures Referred By Contac t Referred To Contact Audrey Delacruz APRN.[employer] [address] [place] [address] Referral ID Status Reason Start Date Expiration Date Visits Re quested Visits Authorized [id number] Closed 1 1 Specialty Diagnoses / Procedures Referred By Contac t Referred To Contact Jane Baig APRN.[employer] [address] [place] [address] Referral ID Status Reason Start Date Expiration Date Visits Re quested Visits Authorized [id number] Closed 1 1 Specialty Diagnoses / Procedures Referred By Contac t Referred To Contact MR IMAGING Diagnoses Transient cerebral ischemia, unspecified type Procedures MRI BRAIN WO IVCON MRI BRAIN BRAIN STEM W/O CONTRAST MATERIAL Jane Baig APRN.[employer] [address] [place] [address] [place] [address] Referral ID Status Reason Start Date Expiration Date V isits Requested Visits Authorized [id number] Closed Auto-Generate d Referral 07/15/2023 08/13/2024 1 1 Additional Source Comments Source Comments (unrecognize d section and content) In the event this informatio n is protected by the Federal Confidentiality of Alcohol and Drug Abuse Patient Records regulations: The Federal rules restrict any use of the information to criminally investigate or prosecute any alcohol or drug abuse patient.[facility] Foundation[facility] the event this information is protected by the Federal Confidentiality of Alcohol and Drug Abuse Patient Records regulations: The Federal rules restrict any use of the information to criminally investigate or prosecute any alcohol or drug abuse patient.[facility] FoundationIn the event this information is protected by the Federal Confidentiality of Alcohol and Drug Abuse Patient Records regulations: The Federal rules restrict any use of the information to criminally investigate or prosecute any alcohol or drug abuse patient.[facility] FoundationIn the event this information is protected by the Federal Confidentiality of Alcohol and Drug Abuse Patient Records regulations: The Federal rules restrict any use of the information to criminally investigate or prosecute any alcohol or drug abuse patient.[facility] FoundationIn the event this information is protected by the Federal Confidentiality of Alcohol and Drug Abuse Patient Records regulations: The Federal rules restrict any use of the information to criminally investigate or prosecute any alcohol or drug abuse patient.[facility] FoundationIn the event this information is protected by the Federal Confidentiality of Alcohol and Drug Abuse Patient Records regulations: The Federal rules restrict any use of the information to criminally investigate or prosecute any alcohol or drug abuse patient.[facility] FoundationIn the event this information is protected by the Federal Confidentiality of Alcohol and Drug Abuse Patient Records regulations: The Federal rules restrict any use of the information to criminally investigate or prosecute any alcohol or drug abuse patient.[facility] FoundationIn the event this information is protected by the Federal Confidentiality of Alcohol and Drug Abuse Patient Records regulations: The Federal rules restrict any use of the information to criminally investigate or prosecute any alcohol or drug abuse patient.[facility] FoundationIn the event this information is protected by the Federal Confidentiality of Alcohol and Drug Abuse Patient Records regulations: The Federal rules restrict any use of the information to criminally investigate or prosecute any alcohol or drug abuse patient.[facility] FoundationIn the event this information is protected by the Federal Confidentiality of Alcohol and Drug Abuse Patient Records regulations: The Federal rules restrict any use of the information to criminally investigate or prosecute any alcohol or drug abuse patient.[facility] FoundationIn the event this information is protected by the Federal Confidentiality of Alcohol and Drug Abuse Patient Records regulations: The Federal rules restrict any use of the information to criminally investigate or prosecute any alcohol or drug abuse patient.[facility] FoundationIn the event this information is protected by the Federal Confidentiality of Alcohol and Drug Abuse Patient Records regulations: The Federal rules restrict any use of the information to criminally investigate or prosecute any alcohol or drug abuse patient.[facility] FoundationIn the event this information is protected by the Federal Confidentiality of Alcohol and Drug Abuse Patient Records regulations: The Federal rules restrict any use of the information to criminally investigate or prosecute any alcohol or drug abuse patient.[facility] FoundationIn the event this information is protected by the Federal Confidentiality of Alcohol and Drug Abuse Patient Records regulations: The Federal rules restrict any use of the information to criminally investigate or prosecute any alcohol or drug abuse patient.[facility] FoundationIn the event this information is protected by the Federal Confidentiality of Alcohol and Drug Abuse Patient Records regulations: The Federal rules restrict any use of the information to criminally investigate or prosecute any alcohol or drug abuse patient.[facility] FoundationIn the event this information is protected by the Federal Confidentiality of Alcohol and Drug Abuse Patient Records regulations: The Federal rules restrict any use of the information to criminally investigate or prosecute any alcohol or drug abuse patient.[facility] FoundationIn the event this information is protected by the Federal Confidentiality of Alcohol and Drug Abuse Patient Records regulations: The Federal rules restrict any use of the information to criminally investigate or prosecute any alcohol or drug abuse patient.[facility] FoundationIn the event this information is protected by the Federal Confidentiality of Alcohol and Drug Abuse Patient Records regulations: The Federal rules restrict any use of the information to criminally investigate or prosecute any alcohol or drug abuse patient.[facility] FoundationIn the event this information is protected by the Federal Confidentiality of Alcohol and Drug Abuse Patient Records regulations: The Federal rules restrict any use of the information to criminally investigate or prosecute any alcohol or drug abuse patient.[facility] FoundationIn the event this information is protected by the Federal Confidentiality of Alcohol and Drug Abuse Patient Records regulations: The Federal rules restrict any use of the information to criminally investigate or prosecute any alcohol or drug abuse patient.[facility] FoundationIn the event this information is protected by the Federal Confidentiality of Alcohol and Drug Abuse Patient Records regulations: The Federal rules restrict any use of the information to criminally investigate or prosecute any alcohol or drug abuse patient.[facility] FoundationIn the event this information is protected by the Federal Confidentiality of Alcohol and Drug Abuse Patient Records regulations: The Federal rules restrict any use of the information to criminally investigate or prosecute any alcohol or drug abuse patient.[facility] FoundationIn the event this information is protected by the Federal Confidentiality of Alcohol and Drug Abuse Patient Records regulations: The Federal rules restrict any use of the information to criminally investigate or prosecute any alcohol or drug abuse patient.[facility] FoundationIn the event this information is protected by the Federal Confidentiality of Alcohol and Drug Abuse Patient Records regulations: The Federal rules restrict any use of the information to criminally investigate or prosecute any alcohol or drug abuse patient.[facility] FoundationIn the event this information is protected by the Federal Confidentiality of Alcohol and Drug Abuse Patient Records regulations: The Federal rules restrict any use of the information to criminally investigate or prosecute any alcohol or drug abuse patient.[facility] FoundationIn the event this information is protected by the Federal Confidentiality of Alcohol and Drug Abuse Patient Records regulations: The Federal rules restrict any use of the information to criminally investigate or prosecute any alcohol or drug abuse patient.[facility] FoundationIn the event this information is protected by the Federal Confidentiality of Alcohol and Drug Abuse Patient Records regulations: The Federal rules restrict any use of the information to criminally investigate or prosecute any alcohol or drug abuse patient.[facility] FoundationIn the event this information is protected by the Federal Confidentiality of Alcohol and Drug Abuse Patient Records regulations: The Federal rules restrict any use of the information to criminally investigate or prosecute any alcohol or drug abuse patient.[facility] FoundationIn the event this information is protected by the Federal Confidentiality of Alcohol and Drug Abuse Patient Records regulations: The Federal rules restrict any use of the information to criminally investigate or prosecute any alcohol or drug abuse patient.[facility] FoundationIn the event this information is protected by the Federal Confidentiality of Alcohol and Drug Abuse Patient Records regulations: The Federal rules restrict any use of the information to criminally investigate or prosecute any alcohol or drug abuse patient.[facility] FoundationIn the event this information is protected by the Federal Confidentiality of Alcohol and Drug Abuse Patient Records regulations: The Federal rules restrict any use of the information to criminally investigate or prosecute any alcohol or drug abuse patient.[facility] FoundationIn the event this information is protected by the Federal Confidentiality of Alcohol and Drug Abuse Patient Records regulations: The Federal rules restrict any use of the information to criminally investigate or prosecute any alcohol or drug abuse patient.[facility] FoundationIn the event this information is protected by the Federal Confidentiality of Alcohol and Drug Abuse Patient Records regulations: The Federal rules restrict any use of the information to criminally investigate or prosecute any alcohol or drug abuse patient.[facility] FoundationIn the event this information is protected by the Federal Confidentiality of Alcohol and Drug Abuse Patient Records regulations: The Federal rules restrict any use of the information to criminally investigate or prosecute any alcohol or drug abuse patient.[facility] FoundationIn the event this information is protected by the Federal Confidentiality of Alcohol and Drug Abuse Patient Records regulations: The Federal rules restrict any use of the information to criminally investigate or prosecute any alcohol or drug abuse patient.[facility] FoundationIn the event this information is protected by the Federal Confidentiality of Alcohol and Drug Abuse Patient Records regulations: The Federal rules restrict any use of the information to criminally investigate or prosecute any alcohol or drug abuse patient.[facility] FoundationIn the event this information is protected by the Federal Confidentiality of Alcohol and Drug Abuse Patient Records regulations: The Federal rules restrict any use of the information to criminally investigate or prosecute any alcohol or drug abuse patient.[facility] FoundationIn the event this information is protected by the Federal Confidentiality of Alcohol and Drug Abuse Patient Records regulations: The Federal rules restrict any use of the information to criminally investigate or prosecute any alcohol or drug abuse patient.[facility] FoundationIn the event this information is protected by the Federal Confidentiality of Alcohol and Drug Abuse Patient Records regulations: The Federal rules restrict any use of the information to criminally investigate or prosecute any alcohol or drug abuse patient.[facility] FoundationIn the event this information is protected by the Federal Confidentiality of Alcohol and Drug Abuse Patient Records regulations: The Federal rules restrict any use of the information to criminally investigate or prosecute any alcohol or drug abuse patient.[facility] FoundationIn the event this information is protected by the Federal Confidentiality of Alcohol and Drug Abuse Patient Records regulations: The Federal rules restrict any use of the information to criminally investigate or prosecute any alcohol or drug abuse patient.[facility] FoundationIn the event this information is protected by the Federal Confidentiality of Alcohol and Drug Abuse Patient Records regulations: The Federal rules restrict any use of the information to criminally investigate or prosecute any alcohol or drug abuse patient.[facility] FoundationIn the event this information is protected by the Federal Confidentiality of Alcohol and Drug Abuse Patient Records regulations: The Federal rules restrict any use of the information to criminally investigate or prosecute any alcohol or drug abuse patient.[facility] FoundationIn the event this information is protected by the Federal Confidentiality of Alcohol and Drug Abuse Patient Records regulations: The Federal rules restrict any use of the information to criminally investigate or prosecute any alcohol or drug abuse patient.[facility] FoundationIn the event this information is protected by the Federal Confidentiality of Alcohol and Drug Abuse Patient Records regulations: The Federal rules restrict any use of the information to criminally investigate or prosecute any alcohol or drug abuse patient.[facility] FoundationIn the event this information is protected by the Federal Confidentiality of Alcohol and Drug Abuse Patient Records regulations: The Federal rules restrict any use of the information to criminally investigate or prosecute any alcohol or drug abuse patient.[facility] FoundationIn the event this information is protected by the Federal Confidentiality of Alcohol and Drug Abuse Patient Records regulations: The Federal rules restrict any use of the information to criminally investigate or prosecute any alcohol or drug abuse patient.[facility] FoundationIn the event this information is protected by the Federal Confidentiality of Alcohol and Drug Abuse Patient Records regulations: The Federal rules restrict any use of the information to criminally investigate or prosecute any alcohol or drug abuse patient.[facility] FoundationIn the event this information is protected by the Federal Confidentiality of Alcohol and Drug Abuse Patient Records regulations: The Federal rules restrict any use of the information to criminally investigate or prosecute any alcohol or drug abuse patient.[facility] FoundationIn the event this information is protected by the Federal Confidentiality of Alcohol and Drug Abuse Patient Records regulations: The Federal rules restrict any use of the information to criminally investigate or prosecute any alcohol or drug abuse patient.[facility] FoundationIn the event this information is protected by the Federal Confidentiality of Alcohol and Drug Abuse Patient Records regulations: The Federal rules restrict any use of the information to criminally investigate or prosecute any alcohol or drug abuse patient.[facility] FoundationIn the event this information is protected by the Federal Confidentiality of Alcohol and Drug Abuse Patient Records regulations: The Federal rules restrict any use of the information to criminally investigate or prosecute any alcohol or drug abuse patient.[facility] FoundationIn the event this information is protected by the Federal Confidentiality of Alcohol and Drug Abuse Patient Records regulations: The Federal rules restrict any use of the information to criminally investigate or prosecute any alcohol or drug abuse patient.[facility] FoundationIn the event this information is protected by the Federal Confidentiality of Alcohol and Drug Abuse Patient Records regulations: The Federal rules restrict any use of the information to criminally investigate or prosecute any alcohol or drug abuse patient.[facility] FoundationIn the event this information is protected by the Federal Confidentiality of Alcohol and Drug Abuse Patient Records regulations: The Federal rules restrict any use of the information to criminally investigate or prosecute any alcohol or drug abuse patient.[facility] FoundationIn the event this information is protected by the Federal Confidentiality of Alcohol and Drug Abuse Patient Records regulations: The Federal rules restrict any use of the information to criminally investigate or prosecute any alcohol or drug abuse patient.[facility] FoundationIn the event this information is protected by the Federal Confidentiality of Alcohol and Drug Abuse Patient Records regulations: The Federal rules restrict any use of the information to criminally investigate or prosecute any alcohol or drug abuse patient.[facility] FoundationIn the event this information is protected by the Federal Confidentiality of Alcohol and Drug Abuse Patient Records regulations: The Federal rules restrict any use of the information to criminally investigate or prosecute any alcohol or drug abuse patient.[facility] FoundationIn the event this information is protected by the Federal Confidentiality of Alcohol and Drug Abuse Patient Records regulations: The Federal rules restrict any use of the information to criminally investigate or prosecute any alcohol or drug abuse patient.[facility] FoundationIn the event this information is protected by the Federal Confidentiality of Alcohol and Drug Abuse Patient Records regulations: The Federal rules restrict any use of the information to criminally investigate or prosecute any alcohol or drug abuse patient.[facility] FoundationIn the event this information is protected by the Federal Confidentiality of Alcohol and Drug Abuse Patient Records regulations: The Federal rules restrict any use of the information to criminally investigate or prosecute any alcohol or drug abuse patient.[facility] FoundationIn the event this information is protected by the Federal Confidentiality of Alcohol and Drug Abuse Patient Records regulations: The Federal rules restrict any use of the information to criminally investigate or prosecute any alcohol or drug abuse patient.[facility] FoundationIn the event this information is protected by the Federal Confidentiality of Alcohol and Drug Abuse Patient Records regulations: The Federal rules restrict any use of the information to criminally investigate or prosecute any alcohol or drug abuse patient.[facility] FoundationIn the event this information is protected by the Federal Confidentiality of Alcohol and Drug Abuse Patient Records regulations: The Federal rules restrict any use of the information to criminally investigate or prosecute any alcohol or drug abuse patient.[facility] FoundationIn the event this information is protected by the Federal Confidentiality of Alcohol and Drug Abuse Patient Records regulations: The Federal rules restrict any use of the information to criminally investigate or prosecute any alcohol or drug abuse patient.[facility] FoundationIn the event this information is protected by the Federal Confidentiality of Alcohol and Drug Abuse Patient Records regulations: The Federal rules restrict any use of the information to criminally investigate or prosecute any alcohol or drug abuse patient.[facility] FoundationIn the event this information is protected by the Federal Confidentiality of Alcohol and Drug Abuse Patient Records regulations: The Federal rules restrict any use of the information to criminally investigate or prosecute any alcohol or drug abuse patient.[facility] FoundationIn the event this information is protected by the Federal Confidentiality of Alcohol and Drug Abuse Patient Records regulations: The Federal rules restrict any use of the information to criminally investigate or prosecute any alcohol or drug abuse patient.[facility] FoundationIn the event this information is protected by the Federal Confidentiality of Alcohol and Drug Abuse Patient Records regulations: The Federal rules restrict any use of the information to criminally investigate or prosecute any alcohol or drug abuse patient.[facility] FoundationIn the event this information is protected by the Federal Confidentiality of Alcohol and Drug Abuse Patient Records regulations: The Federal rules restrict any use of the information to criminally investigate or prosecute any alcohol or drug abuse patient.[facility] FoundationIn the event this information is protected by the Federal Confidentiality of Alcohol and Drug Abuse Patient Records regulations: The Federal rules restrict any use of the information to criminally investigate or prosecute any alcohol or drug abuse patient.[facility] FoundationIn the event this information is protected by the Federal Confidentiality of Alcohol and Drug Abuse Patient Records regulations: The Federal rules restrict any use of the information to criminally investigate or prosecute any alcohol or drug abuse patient.[facility] FoundationIn the event this information is protected by the Federal Confidentiality of Alcohol and Drug Abuse Patient Records regulations: The Federal rules restrict any use of the information to criminally investigate or prosecute any alcohol or drug abuse patient.[facility] FoundationIn the event this information is protected by the Federal Confidentiality of Alcohol and Drug Abuse Patient Records regulations: The Federal rules restrict any use of the information to criminally investigate or prosecute any alcohol or drug abuse patient.[facility] FoundationIn the event this information is protected by the Federal Confidentiality of Alcohol and Drug Abuse Patient Records regulations: The Federal rules restrict any use of the information to criminally investigate or prosecute any alcohol or drug abuse patient.[facility] FoundationIn the event this information is protected by the Federal Confidentiality of Alcohol and Drug Abuse Patient Records regulations: The Federal rules restrict any use of the information to criminally investigate or prosecute any alcohol or drug abuse patient.[facility] FoundationIn the event this information is protected by the Federal Confidentiality of Alcohol and Drug Abuse Patient Records regulations: The Federal rules restrict any use of the information to criminally investigate or prosecute any alcohol or drug abuse patient.[facility] FoundationIn the event this information is protected by the Federal Confidentiality of Alcohol and Drug Abuse Patient Records regulations: The Federal rules restrict any use of the information to criminally investigate or prosecute any alcohol or drug abuse patient.[facility] FoundationIn the event this information is protected by the Federal Confidentiality of Alcohol and Drug Abuse Patient Records regulations: The Federal rules restrict any use of the information to criminally investigate or prosecute any alcohol or drug abuse patient.[facility] FoundationIn the event this information is protected by the Federal Confidentiality of Alcohol and Drug Abuse Patient Records regulations: The Federal rules restrict any use of the information to criminally investigate or prosecute any alcohol or drug abuse patient.[facility] FoundationIn the event this information is protected by the Federal Confidentiality of Alcohol and Drug Abuse Patient Records regulations: The Federal rules restrict any use of the information to criminally investigate or prosecute any alcohol or drug abuse patient.[facility] FoundationIn the event this information is protected by the Federal Confidentiality of Alcohol and Drug Abuse Patient Records regulations: The Federal rules restrict any use of the information to criminally investigate or prosecute any alcohol or drug abuse patient.[facility] FoundationIn the event this information is protected by the Federal Confidentiality of Alcohol and Drug Abuse Patient Records regulations: The Federal rules restrict any use of the information to criminally investigate or prosecute any alcohol or drug abuse patient.[facility] FoundationIn the event this information is protected by the Federal Confidentiality of Alcohol and Drug Abuse Patient Records regulations: The Federal rules restrict any use of the information to criminally investigate or prosecute any alcohol or drug abuse patient.[facility] FoundationIn the event this information is protected by the Federal Confidentiality of Alcohol and Drug Abuse Patient Records regulations: The Federal rules restrict any use of the information to criminally investigate or prosecute any alcohol or drug abuse patient.[facility] FoundationIn the event this information is protected by the Federal Confidentiality of Alcohol and Drug Abuse Patient Records regulations: The Federal rules restrict any use of the information to criminally investigate or prosecute any alcohol or drug abuse patient.[facility] FoundationIn the event this information is protected by the Federal Confidentiality of Alcohol and Drug Abuse Patient Records regulations: The Federal rules restrict any use of the information to criminally investigate or prosecute any alcohol or drug abuse patient.[facility] FoundationIn the event this information is protected by the Federal Confidentiality of Alcohol and Drug Abuse Patient Records regulations: The Federal rules restrict any use of the information to criminally investigate or prosecute any alcohol or drug abuse patient.[facility] FoundationIn the event this information is protected by the Federal Confidentiality of Alcohol and Drug Abuse Patient Records regulations: The Federal rules restrict any use of the information to criminally investigate or prosecute any alcohol or drug abuse patient.[facility] FoundationIn the event this information is protected by the Federal Confidentiality of Alcohol and Drug Abuse Patient Records regulations: The Federal rules restrict any use of the information to criminally investigate or prosecute any alcohol or drug abuse patient.[facility] FoundationIn the event this information is protected by the Federal Confidentiality of Alcohol and Drug Abuse Patient Records regulations: The Federal rules restrict any use of the information to criminally investigate or prosecute any alcohol or drug abuse patient.[facility] FoundationIn the event this information is protected by the Federal Confidentiality of Alcohol and Drug Abuse Patient Records regulations: The Federal rules restrict any use of the information to criminally investigate or prosecute any alcohol or drug abuse patient.[facility] FoundationIn the event this information is protected by the Federal Confidentiality of Alcohol and Drug Abuse Patient Records regulations: The Federal rules restrict any use of the information to criminally investigate or prosecute any alcohol or drug abuse patient.[facility] FoundationIn the event this information is protected by the Federal Confidentiality of Alcohol and Drug Abuse Patient Records regulations: The Federal rules restrict any use of the information to criminally investigate or prosecute any alcohol or drug abuse patient.[facility] FoundationIn the event this information is protected by the Federal Confidentiality of Alcohol and Drug Abuse Patient Records regulations: The Federal rules restrict any use of the information to criminally investigate or prosecute any alcohol or drug abuse patient.[facility] FoundationIn the event this information is protected by the Federal Confidentiality of Alcohol and Drug Abuse Patient Records regulations: The Federal rules restrict any use of the information to criminally investigate or prosecute any alcohol or drug abuse patient.[facility] FoundationIn the event this information is protected by the Federal Confidentiality of Alcohol and Drug Abuse Patient Records regulations: The Federal rules restrict any use of the information to criminally investigate or prosecute any alcohol or drug abuse patient.[facility] FoundationIn the event this information is protected by the Federal Confidentiality of Alcohol and Drug Abuse Patient Records regulations: The Federal rules restrict any use of the information to criminally investigate or prosecute any alcohol or drug abuse patient.[facility] FoundationIn the event this information is protected by the Federal Confidentiality of Alcohol and Drug Abuse Patient Records regulations: The Federal rules restrict any use of the information to criminally investigate or prosecute any alcohol or drug abuse patient.[facility] FoundationIn the event this information is protected by the Federal Confidentiality of Alcohol and Drug Abuse Patient Records regulations: The Federal rules restrict any use of the information to criminally investigate or prosecute any alcohol or drug abuse patient.[facility] FoundationIn the event this information is protected by the Federal Confidentiality of Alcohol and Drug Abuse Patient Records regulations: The Federal rules restrict any use of the information to criminally investigate or prosecute any alcohol or drug abuse patient.[facility] FoundationIn the event this information is protected by the Federal Confidentiality of Alcohol and Drug Abuse Patient Records regulations: The Federal rules restrict any use of the information to criminally investigate or prosecute any alcohol or drug abuse patient.[facility] FoundationIn the event this information is protected by the Federal Confidentiality of Alcohol and Drug Abuse Patient Records regulations: The Federal rules restrict any use of the information to criminally investigate or prosecute any alcohol or drug abuse patient.[facility] FoundationIn the event this information is protected by the Federal Confidentiality of Alcohol and Drug Abuse Patient Records regulations: The Federal rules restrict any use of the information to criminally investigate or prosecute any alcohol or drug abuse patient.[facility] FoundationIn the event this information is protected by the Federal Confidentiality of Alcohol and Drug Abuse Patient Records regulations: The Federal rules restrict any use of the information to criminally investigate or prosecute any alcohol or drug abuse patient.[facility] FoundationIn the event this information is protected by the Federal Confidentiality of Alcohol and Drug Abuse Patient Records regulations: The Federal rules restrict any use of the information to criminally investigate or prosecute any alcohol or drug abuse patient.[facility] FoundationIn the event this information is protected by the Federal Confidentiality of Alcohol and Drug Abuse Patient Records regulations: The Federal rules restrict any use of the information to criminally investigate or prosecute any alcohol or drug abuse patient.[facility] FoundationIn the event this information is protected by the Federal Confidentiality of Alcohol and Drug Abuse Patient Records regulations: The Federal rules restrict any use of the information to criminally investigate or prosecute any alcohol or drug abuse patient.[facility] FoundationIn the event this information is protected by the Federal Confidentiality of Alcohol and Drug Abuse Patient Records regulations: The Federal rules restrict any use of the information to criminally investigate or prosecute any alcohol or drug abuse patient.[facility] FoundationIn the event this information is protected by the Federal Confidentiality of Alcohol and Drug Abuse Patient Records regulations: The Federal rules restrict any use of the information to criminally investigate or prosecute any alcohol or drug abuse patient.[facility] FoundationIn the event this information is protected by the Federal Confidentiality of Alcohol and Drug Abuse Patient Records regulations: The Federal rules restrict any use of the information to criminally investigate or prosecute any alcohol or drug abuse patient.[facility] FoundationIn the event this information is protected by the Federal Confidentiality of Alcohol and Drug Abuse Patient Records regulations: The Federal rules restrict any use of the information to criminally investigate or prosecute any alcohol or drug abuse patient.[facility] FoundationIn the event this information is protected by the Federal Confidentiality of Alcohol and Drug Abuse Patient Records regulations: The Federal rules restrict any use of the information to criminally investigate or prosecute any alcohol or drug abuse patient.[facility] FoundationIn the event this information is protected by the Federal Confidentiality of Alcohol and Drug Abuse Patient Records regulations: The Federal rules restrict any use of the information to criminally investigate or prosecute any alcohol or drug abuse patient.[facility] FoundationIn the event this information is protected by the Federal Confidentiality of Alcohol and Drug Abuse Patient Records regulations: The Federal rules restrict any use of the information to criminally investigate or prosecute any alcohol or drug abuse patient.[facility] FoundationIn the event this information is protected by the Federal Confidentiality of Alcohol and Drug Abuse Patient Records regulations: The Federal rules restrict any use of the information to criminally investigate or prosecute any alcohol or drug abuse patient.[facility] FoundationIn the event this information is protected by the Federal Confidentiality of Alcohol and Drug Abuse Patient Records regulations: The Federal rules restrict any use of the information to criminally investigate or prosecute any alcohol or drug abuse patient.[facility] FoundationIn the event this information is protected by the Federal Confidentiality of Alcohol and Drug Abuse Patient Records regulations: The Federal rules restrict any use of the information to criminally investigate or prosecute any alcohol or drug abuse patient.[facility] FoundationIn the event this information is protected by the Federal Confidentiality of Alcohol and Drug Abuse Patient Records regulations: The Federal rules restrict any use of the information to criminally investigate or prosecute any alcohol or drug abuse patient.[facility] FoundationIn the event this information is protected by the Federal Confidentiality of Alcohol and Drug Abuse Patient Records regulations: The Federal rules restrict any use of the information to criminally investigate or prosecute any alcohol or drug abuse patient.[facility] FoundationIn the event this information is protected by the Federal Confidentiality of Alcohol and Drug Abuse Patient Records regulations: The Federal rules restrict any use of the information to criminally investigate or prosecute any alcohol or drug abuse patient.[facility] FoundationIn the event this information is protected by the Federal Confidentiality of Alcohol and Drug Abuse Patient Records regulations: The Federal rules restrict any use of the information to criminally investigate or prosecute any alcohol or drug abuse patient.[facility] FoundationIn the event this information is protected by the Federal Confidentiality of Alcohol and Drug Abuse Patient Records regulations: The Federal rules restrict any use of the information to criminally investigate or prosecute any alcohol or drug abuse patient.[facility] FoundationIn the event this information is protected by the Federal Confidentiality of Alcohol and Drug Abuse Patient Records regulations: The Federal rules restrict any use of the information to criminally investigate or prosecute any alcohol or drug abuse patient.[facility] FoundationIn the event this information is protected by the Federal Confidentiality of Alcohol and Drug Abuse Patient Records regulations: The Federal rules restrict any use of the information to criminally investigate or prosecute any alcohol or drug abuse patient.[facility] FoundationIn the event this information is protected by the Federal Confidentiality of Alcohol and Drug Abuse Patient Records regulations: The Federal rules restrict any use of the information to criminally investigate or prosecute any alcohol or drug abuse patient.[facility] FoundationIn the event this information is protected by the Federal Confidentiality of Alcohol and Drug Abuse Patient Records regulations: The Federal rules restrict any use of the information to criminally investigate or prosecute any alcohol or drug abuse patient.[facility] FoundationIn the event this information is protected by the Federal Confidentiality of Alcohol and Drug Abuse Patient Records regulations: The Federal rules restrict any use of the information to criminally investigate or prosecute any alcohol or drug abuse patient.[facility] FoundationIn the event this information is protected by the Federal Confidentiality of Alcohol and Drug Abuse Patient Records regulations: The Federal rules restrict any use of the information to criminally investigate or prosecute any alcohol or drug abuse patient.[facility] FoundationIn the event this information is protected by the Federal Confidentiality of Alcohol and Drug Abuse Patient Records regulations: The Federal rules restrict any use of the information to criminally investigate or prosecute any alcohol or drug abuse patient.[facility] FoundationIn the event this information is protected by the Federal Confidentiality of Alcohol and Drug Abuse Patient Records regulations: The Federal rules restrict any use of the information to criminally investigate or prosecute any alcohol or drug abuse patient.[facility] FoundationIn the event this information is protected by the Federal Confidentiality of Alcohol and Drug Abuse Patient Records regulations: The Federal rules restrict any use of the information to criminally investigate or prosecute any alcohol or drug abuse patient.[facility] FoundationIn the event this information is protected by the Federal Confidentiality of Alcohol and Drug Abuse Patient Records regulations: The Federal rules restrict any use of the information to criminally investigate or prosecute any alcohol or drug abuse patient.[facility] FoundationIn the event this information is protected by the Federal Confidentiality of Alcohol and Drug Abuse Patient Records regulations: The Federal rules restrict any use of the information to criminally investigate or prosecute any alcohol or drug abuse patient.[facility] FoundationIn the event this information is protected by the Federal Confidentiality of Alcohol and Drug Abuse Patient Records regulations: The Federal rules restrict any use of the information to criminally investigate or prosecute any alcohol or drug abuse patient.[facility] FoundationIn the event this information is protected by the Federal Confidentiality of Alcohol and Drug Abuse Patient Records regulations: The Federal rules restrict any use of the information to criminally investigate or prosecute any alcohol or drug abuse patient.[facility] FoundationIn the event this information is protected by the Federal Confidentiality of Alcohol and Drug Abuse Patient Records regulations: The Federal rules restrict any use of the information to criminally investigate or prosecute any alcohol or drug abuse patient.[facility] FoundationIn the event this information is protected by the Federal Confidentiality of Alcohol and Drug Abuse Patient Records regulations: The Federal rules restrict any use of the information to criminally investigate or prosecute any alcohol or drug abuse patient.[facility] FoundationIn the event this information is protected by the Federal Confidentiality of Alcohol and Drug Abuse Patient Records regulations: The Federal rules restrict any use of the information to criminally investigate or prosecute any alcohol or drug abuse patient.[facility] FoundationIn the event this information is protected by the Federal Confidentiality of Alcohol and Drug Abuse Patient Records regulations: The Federal rules restrict any use of the information to criminally investigate or prosecute any alcohol or drug abuse patient.[facility] FoundationIn the event this information is protected by the Federal Confidentiality of Alcohol and Drug Abuse Patient Records regulations: The Federal rules restrict any use of the information to criminally investigate or prosecute any alcohol or drug abuse patient.[facility] FoundationIn the event this information is protected by the Federal Confidentiality of Alcohol and Drug Abuse Patient Records regulations: The Federal rules restrict any use of the information to criminally investigate or prosecute any alcohol or drug abuse patient.[facility] FoundationIn the event this information is protected by the Federal Confidentiality of Alcohol and Drug Abuse Patient Records regulations: The Federal rules restrict any use of the information to criminally investigate or prosecute any alcohol or drug abuse patient.[facility] FoundationIn the event this information is protected by the Federal Confidentiality of Alcohol and Drug Abuse Patient Records regulations: The Federal rules restrict any use of the information to criminally investigate or prosecute any alcohol or drug abuse patient.[facility] FoundationIn the event this information is protected by the Federal Confidentiality of Alcohol and Drug Abuse Patient Records regulations: The Federal rules restrict any use of the information to criminally investigate or prosecute any alcohol or drug abuse patient.[facility] FoundationIn the event this information is protected by the Federal Confidentiality of Alcohol and Drug Abuse Patient Records regulations: The Federal rules restrict any use of the information to criminally investigate or prosecute any alcohol or drug abuse patient.[facility] FoundationIn the event this information is protected by the Federal Confidentiality of Alcohol and Drug Abuse Patient Records regulations: The Federal rules restrict any use of the information to criminally investigate or prosecute any alcohol or drug abuse patient.[facility] FoundationIn the event this information is protected by the Federal Confidentiality of Alcohol and Drug Abuse Patient Records regulations: The Federal rules restrict any use of the information to criminally investigate or prosecute any alcohol or drug abuse patient.[facility] FoundationIn the event this information is protected by the Federal Confidentiality of Alcohol and Drug Abuse Patient Records regulations: The Federal rules restrict any use of the information to criminally investigate or prosecute any alcohol or drug abuse patient.[facility] FoundationIn the event this information is protected by the Federal Confidentiality of Alcohol and Drug Abuse Patient Records regulations: The Federal rules restrict any use of the information to criminally investigate or prosecute any alcohol or drug abuse patient.[facility] FoundationIn the event this information is protected by the Federal Confidentiality of Alcohol and Drug Abuse Patient Records regulations: The Federal rules restrict any use of the information to criminally investigate or prosecute any alcohol or drug abuse patient.[facility] FoundationIn the event this information is protected by the Federal Confidentiality of Alcohol and Drug Abuse Patient Records regulations: The Federal rules restrict any use of the information to criminally investigate or prosecute any alcohol or drug abuse patient.[facility] FoundationIn the event this information is protected by the Federal Confidentiality of Alcohol and Drug Abuse Patient Records regulations: The Federal rules restrict any use of the information to criminally investigate or prosecute any alcohol or drug abuse patient.[facility] FoundationIn the event this information is protected by the Federal Confidentiality of Alcohol and Drug Abuse Patient Records regulations: The Federal rules restrict any use of the information to criminally investigate or prosecute any alcohol or drug abuse patient.[facility] FoundationIn the event this information is protected by the Federal Confidentiality of Alcohol and Drug Abuse Patient Records regulations: The Federal rules restrict any use of the information to criminally investigate or prosecute any alcohol or drug abuse patient.[facility] FoundationIn the event this information is protected by the Federal Confidentiality of Alcohol and Drug Abuse Patient Records regulations: The Federal rules restrict any use of the information to criminally investigate or prosecute any alcohol or drug abuse patient.[facility] FoundationIn the event this information is protected by the Federal Confidentiality of Alcohol and Drug Abuse Patient Records regulations: The Federal rules restrict any use of the information to criminally investigate or prosecute any alcohol or drug abuse patient.[facility] FoundationIn the event this information is protected by the Federal Confidentiality of Alcohol and Drug Abuse Patient Records regulations: The Federal rules restrict any use of the information to criminally investigate or prosecute any alcohol or drug abuse patient.[facility] FoundationIn the event this information is protected by the Federal Confidentiality of Alcohol and Drug Abuse Patient Records regulations: The Federal rules restrict any use of the information to criminally investigate or prosecute any alcohol or drug abuse patient.[facility] FoundationIn the event this information is protected by the Federal Confidentiality of Alcohol and Drug Abuse Patient Records regulations: The Federal rules restrict any use of the information to criminally investigate or prosecute any alcohol or drug abuse patient.[facility] FoundationIn the event this information is protected by the Federal Confidentiality of Alcohol and Drug Abuse Patient Records regulations: The Federal rules restrict any use of the information to criminally investigate or prosecute any alcohol or drug abuse patient.[facility] Reason for Visit (unrecogniz ed section and content) Reason Comments Refill Request [email or web address] Reason Onset Date Comments [facility] Oral Oncology/hematology - Medication Refill 05/22/2021 Imbruvica Reason Comments F/U 6 months Reason Onset Date Comments [facility]PP Oral Oncology/hematology - Medication Refill 06/16/2021 Imbruvica Reason Comments Patient Question Reason Comments Options Advisor - Other Symptoms Patient Question Reason Onset Date Comments [facility] Oral Oncology/hematology - Medication Refill 07/11/2021 Imbruvica Reason Comments Established Patient Reason Comments Medication Question Reason Comments Refill Request Reason Onset Date Comments Refill Request 07/25/2021 Reason Onset Date Comments [facility]PP Oral Oncology/hematology - Medication Refill 08/03/2021 Imbruvica 140mg Reason Comments Patient Assistance Reason Onset Date Comments [facility]PP Oral Oncology/hematology - Medication Refill 08/30/2021 Imbruvica Reason Comments Orders Reason Comments Established Patient [facility] hospital follow up- chest pains, possible anxiety or acid reflux Reason Onset Date Comments SPP Oral Oncology/hematology - Medication Refill 09/27/2021 Imbruvica Reason Comments Results Reason Onset Date Comments SPP Oral Oncology/hematology - Medication Refill 10/27/2021 Imbruvica Reason Comments positive covid home test 11/05 Reason Comments Telemedicine Reason Comments Options Advisor - Other Follow-up Reason Comments Patient Update Patient Question Reason Comments Ear Problem Right ear pain, radi ates down neck Reason Onset Date Comments [facility]PP Oral Oncology/hematology - Medication Refill 11/29/2021 Imbruvica Reason Comments Results Results, Lab Thyroid Problem Reason Onset Date Comments [facility]PP Oral Oncology/hematology - Medication Refill 12/25/2021 Imbruvica Reason Comments Patient Question Patient Update left foot/ankle swel ling Reason Onset Date Comments [facility] Oral Oncology/hematology - Medication Refill 01/31/2022 Imbruvica Reason Comments Headache Headache for a few d ays, starting with sore throat and ear pain Reason Comments Patient Question Medication interacti on Reason Onset Date Comments [facility]PP Oral Oncology/hematology - Medication Refill 02/23/2022 Imbruvica 140mg Reason Onset Date Comments Refill Request 03/08/2022 Reason Onset Date Comments SPP Oral Oncology/hematology - Medication Refill 03/29/2022 Imbruvica Reason Onset Date Comments Refill Request 03/30/2022 Refill Request 04/02/2022 Reason Comments Appointment Reason Comments Question Reason Comments Medical Clearance Reason Onset Date Comments SPP Oral Oncology/hematology - Medication Refill 05/02/2022 Imbruvica Reason Comments Patient Update Orders Reason Onset Date Comments SPP Oral Oncology/hematology - Medication Refill 06/27/2022 Imbruvica Reason Comments Fall Pt presented with leslie shafer, reported fall slipped on wood floor at home (LT) foot pain rated 9. Reason Onset Date Comments SPP Oral Oncology/hematology - Medication Refill 09/10/2022 [facility] Reason Comments AVS Reason Comments Yearly Exam Reason Comments Ear Pain R ear pain x 2 days Reason Onset Date Comments Refill Request 10/05/2022 Refill Request 10/10/2022 Reason Onset Date Comments Refill Request 10/17/2022 Reason Onset Date Comments SPP Oral Oncology/hematology - Medication Refill 11/06/2022 [facility] Reason Comments Follow Up Middle Ear Effusion, Right Reason Onset Date Comments SPP Oral Oncology/hematology - Medication Refill 12/03/2022 [facility] Reason Onset Date Comments SPP Oral Oncology/hematology - Medication Refill 01/02/2023 [facility] Reason Onset Date Comments Refill Request 01/03/2023 Reason Onset Date Comments SPP Oral Oncology/hematology - Medication Refill 02/01/2023 [facility] Reason Onset Date Comments SPP Oral Oncology/hematology - Treatment Referra l 04/01/2023 [facility] refill Reason Comments Recheck 1 month follow up Reason Onset Date Comments UTI 06/11/2023 Frequent urinati on Reason Comments Acute Visit UTI sx- frequent uri nation/nocturia Reason Comments Cough Sore throat and ear pain x2 days Reason Comments Patient Update Reason Comments Hospital Follow Up [facility] dc'd 07/10 dx pne umonia Reason Comments Social Work Services Specialty Diagnoses / Procedures Referred By Kiara t Referred To Contact [facility] Diagnoses Transient cerebral ischemia, unspecified type Procedures MRI BRAIN WO IVCON MRI BRAIN BRAIN STEM W/O CONTRAST MATERIAL Jane Baig, ERA.GOLF BALL WINDER [address] [place] [address] [place] [id number] Referral ID Status Reason Start Date Expiration Date V isits Requested Visits Authorized [id number] Closed Auto-Generate d Referral 07/15/2023 08/13/2024 1 1 Reason Comments handicap placard Reason Comments Lab Order Request Reason Comments Med Change Request Reason Onset Date Comments requesting medication that is 09/23/2023 Reason Comments Results sores on legs Reason Comments Recheck 1 month follow up; L pinkie finger red/swollen x1 day Reason Comments Recheck 1 month follow up Reason Comments Urinary Problem burning with urinati on x 4 days Reason Comments Radiology XR Reason Onset Date Comments Refill Request 05/30/2023 Reason Comments 2024 [facility] Patient Assistance Reason Onset Date Comments Refill Request 02/28/2024 Reason Onset Date Comments SPP Oral Oncology/hematology - Medication Refill 03/13/2024 [facility] Reason Onset Date Comments Refill Request 03/24/2024 Reason Comments Cough Head congestion, fat igue, diarrhea x6 days Reason Onset Date Comments SPP Oral Oncology/hematology - Medication Refill 04/06/2024 [facility] Reason Onset Date Comments Refill Request 04/07/2024 Reason Comments UTI Dysuria and frequenc y for 3 days Reason Onset Date Comments Results 04/20/2024 Reason Onset Date Comments SPP Oral Oncology/hematology - Medication Refill 05/08/2024 [facility] Reason Onset Date Comments SPP Oral Oncology/hematology - Medication Refill 06/10/2024 [facility] Reason Onset Date Comments SPP Oral Oncology/hematology - Medication Refill 07/09/2024 [facility] Reason Onset Date Comments Refill Request 07/29/2024 Reason Onset Date Comments SPP Oral Oncology/hematology - Medication Refill 08/06/2024 [facility] Reason Comments Social Work Services Patient Question Reason Comments Recheck 3 month follow up Acute Visit UTI sx x 1 week- noc turia, burning with urination, dark colored urine Reason Onset Date Comments SPP Oral Oncology/hematology - Medication Refill 09/01/2024 [facility] 140mg Reason Comments Trauma Lower right side of pain, hit plastic tote when fell x 1 week Reason Onset Date Comments SPP Oral Oncology/hematology - Medication Refill 10/05/2024 [facility] Reason Comments Results Medication Request Reason Comments CLL (chronic lymphocytic leukemia) Follow Up Reason Comments Recheck 4 week follow up Reason Onset Date Comments SPP Oral Oncology/hematology - Medication Refill 11/05/2024 [facility] Care Teams (unrecognized sec tion and content) Renal Medicine Physician Relationship Specialty Start Date End Date Urban Kruger, ERA.EDITA, DNP [address] [place], [place] [id number] PCP - General Family Practice 12/13/20 Cathy Lawton RN Specialty Options Advisor Oncology 09/01/20 Renal Medicine Physician Relationship Specialty Start Date End Date Urban Kruger, ERA.TRACE KOHLER [address] [place], [place] [address] PCP - General Family Practice 12/13/20 Cathy Lawton RN Specialty Options Advisor Oncology 09/01/20 Renal Medicine Physician Relationship Specialty Start Date End Date Urban Kruger, VARNISH FILTERER.TRACE KOHLER [address] [place], [place] [id number] PCP - General Family Practice 12/13/20 Cathy Lawton RN Specialty Options Advisor Oncology 09/01/20 Renal Medicine Physician Relationship Specialty Start Date End Date Urban Kruger APRN.TRACE KOHLER [address] [place] [address] PCP - General Family Practice 12/13/20 Cathy Lawton RN Specialty Options Advisor Oncology 09/01/20 Renal Medicine Physician Relationship Specialty Start Date End Date Urban Kruger APRN.TRACE KOHLER [address] [place] [address] PCP - General Family Practice 12/13/20 Cathy Lawton RN Specialty Options Advisor Oncology 09/01/20 Renal Medicine Physician Relationship Specialty Start Date End Date Urban Kruger VARNISH FILTERER.TRACE KOHLER [address] [place] [address] PCP - General Family Practice 12/13/20 Cathy Lawton RN Specialty Options Advisor Oncology 09/01/20 Renal Medicine Physician Relationship Specialty Start Date End Date Urban Kruger, VARNISH FILTERER.TRACE KOHLER [address] [place] [address] PCP - General Family Practice 12/13/20 Cathy Lawton RN Specialty Options Advisor Oncology 09/01/20 Renal Medicine Physician Relationship Specialty Start Date End Date Urban Kruger APRN.TRACE KOHLER [address] [place] [address] PCP - General Family Practice 12/13/20 Cathy aLwton RN Specialty Options Advisor Oncology 09/01/20 Renal Medicine Physician Relationship Specialty Start Date End Date Urban Krugre VARNISH FILTERER.TRACE KOHLER [address] [place] [address] PCP - General Family Practice 12/13/20 Cathy Lawton RN Specialty Options Advisor Oncology 09/01/20 Renal Medicine Physician Relationship Specialty Start Date End Date Urban Kruger VARNISH FILTERER.TRACE KOHLER [address] [place] [address] PCP - General Family Practice 12/13/20 Doup, Cathy, RN Specialty Options Advisor Oncology 09/01/20 Renal Medicine Physician Relationship Specialty Start Date End Date Urban Kruger, VARNISH FILTERER.EDITA, DNP [address] [place] [address] PCP - General Family Practice 12/13/20 Doup, Cathy RN Specialty Options Advisor Oncology 09/01/20 Renal Medicine Physician Relationship Specialty Start Date End Date Urban Kruger VARNISH FILTERER.EDITA, DNP [address] [place] [address] PCP - General Family Practice 12/13/20 Doup, Cathy RN Specialty Options Advisor Oncology 09/01/20 Renal Medicine Physician Relationship Specialty Start Date End Date Urban Kruger VARNISH FILTERER.EDITA, DNP [address] [place] [address] PCP - General Family Practice 12/13/20 Doup, Cathy, RN Specialty Options Advisor Oncology 09/01/20 Renal Medicine Physician Relationship Specialty Start Date End Date Doup, Cathy, RN Specialty Options Advisor Oncology 09/01/20 Renal Medicine Physician Relationship Specialty Start Date End Date Doup, Cathy, RN Specialty Options Advisor Oncology 09/01/20 Renal Medicine Physician Relationship Specialty Start Date End Date Doup, Cathy, RN Specialty Options Advisor Oncology 09/01/20 Renal Medicine Physician Relationship Specialty Start Date End Date Doup, Cathy, RN Specialty Options Advisor Oncology 09/01/20 Renal Medicine Physician Relationship Specialty Start Date End Date Doup, Cathy, RN Specialty Options Advisor Oncology 09/01/20 Renal Medicine Physician Relationship Specialty Start Date End Date Doup, Cathy, RN Specialty Options Advisor Oncology 09/01/20 Renal Medicine Physician Relationship Specialty Start Date End Date Doup, Cathy, RN Specialty Options Advisor Oncology 09/01/20 Renal Medicine Physician Relationship Specialty Start Date End Date Doup, Cathy, RN Specialty Options Advisor Oncology 09/01/20 Renal Medicine Physician Relationship Specialty Start Date End Date Jane Baig, VARNISH FILTERER.GOLF BALL WINDER [address] [place] [address] PCP - General Family Medicine 11/20/21 DoCathy truong RN Specialty Options Advisor Oncology 09/01/20 Renal Medicine Physician Relationship Specialty Start Date End Date Jane Baig, VARNISH FILTERER.GOLF BALL WINDER [address] [facility] [place] [address] PCP - General Family Medicine 11/20/21 DoupCathy RN Specialty Options Advisor Oncology 09/01/20 Renal Medicine Physician Relationship Specialty Start Date End Date Jane Baig, VARNISH FILTERER.GOLF BALL WINDER [address] [facility] [place] [address] PCP - General Family Medicine 11/20/21 Cathy Lawton RN Specialty Options Advisor Oncology 09/01/20 Renal Medicine Physician Relationship Specialty Start Date End Date Jane Baig, VARNISH FILTERER.GOLF BALL WINDER [address] [place] [address] PCP - General Family Medicine 11/20/21 DoCathy truong RN Specialty Options Advisor Oncology 09/01/20 Renal Medicine Physician Relationship Specialty Start Date End Date Jane Baig, VARNISH FILTERER.GOLF BALL WINDER [address] [place] [address] PCP - General Family Medicine 11/20/21 Cathy Lawton RN Specialty Options Advisor Oncology 09/01/20 Renal Medicine Physician Relationship Specialty Start Date End Date Jane Baig, VARNISH FILTERER.GOLF BALL WINDER [address] [facility] [place] [address] PCP - General Family Medicine 11/20/21 Cathy Lawton RN Specialty Options Advisor Oncology 09/01/20 Renal Medicine Physician Relationship Specialty Start Date End Date Jane Baig, VARNISH FILTERER.GOLF BALL WINDER [address] [facility] [place] [address] PCP - General Family Medicine 11/20/21 DoCathy truong RN Specialty Options Advisor Oncology 09/01/20 Renal Medicine Physician Relationship Specialty Start Date End Date Jane Baig, VARNISH FILTERER.GOLF BALL WINDER [address] [place] [address] PCP - General Family Medicine 11/20/21 Cathy Lawton RN Specialty Options Advisor Oncology 09/01/20 Renal Medicine Physician Relationship Specialty Start Date End Date Delbert Jane, VARNISH FILTERER.GOLF BALL WINDER [address] [place] [address] PCP - General Family Medicine 11/20/21 Cathy Lawton RN Specialty Options Advisor Oncology 09/01/20 Renal Medicine Physician Relationship Specialty Start Date End Date Delbert, Jane, VARNISH FILTERER.GOLF BALL WINDER [address] [place] [address] PCP - General Family Medicine 11/20/21 Cathy Lawton RN Specialty Options Advisor Oncology 09/01/20 Team Status: Active Member Role Status Dates Dr. Carlos Maxwell MD Family Provider Active Jane Baig PROCESS PROJECT ENGINEER, PROCESS PROJECT ENGINEER-C Primary Care Provider Active Team Status: Inactive Member Role Status Dates Jane Baig PROCESS PROJECT ENGINEER, PROCESS PROJECT ENGINEER-C Primary Care Provider Active Dr. Adam Iverson DO Emergency Provider Active Renal Medicine Physician Relationship Specialty Start Date End Date Jane, VARNISH FILTERER.GOLF BALL WINDER [address] [place] [address] PCP - General Family Medicine 11/20/21 Cathy Lawton RN Specialty Options Advisor Oncology 09/01/20 Renal Medicine Physician Relationship Specialty Start Date End Date , VARNISH FILTERER.GOLF BALL WINDER [address] [place] [address] PCP - General Family Medicine 11/20/21 Cathy Lawton RN Specialty Options Advisor Oncology 09/01/20 Team Status: Inactive Member Role Status Dates Jane Baig PROCESS PROJECT ENGINEER, PROCESS PROJECT ENGINEER-C Primary Care Provider Active Dr. Adam Iverson DO Attending Provider, Emergency Pr ovider Active Team Status: Inactive Member Role Status Dates Jane Baig PROCESS PROJECT ENGINEER, PROCESS PROJECT ENGINEER-C Primary Care Provider Active Dr. Anai Hameed DO Emergency Provider Active Renal Medicine Physician Relationship Specialty Start Date End Date , VARNISH FILTERER.GOLF BALL WINDER [address] [facility] [place] [address] PCP - General Family Medicine 11/20/21 Cathy Lawton RN Specialty Options Advisor Oncology 09/01/20 Renal Medicine Physician Relationship Specialty Start Date End Date Jane Baig, VARNISH FILTERER.GOLF BALL WINDER [address] [facility] [place] [address] PCP - General Family Medicine 11/20/21 Cathy Lawton RN Specialty Options Advisor Oncology 09/01/20 Karli Diaz, FIBERGLASS PRODUCT TESTER [address] [place] [address] Industrial Equipment Mechanic Hematology/Oncology 09/04/22 Renal Medicine Physician Relationship Specialty Start Date End Date Jane Baig, VARNISH FILTERER.GOLF BALL WINDER [address] [facility] [place] [address] PCP - General Family Medicine 11/20/21 Cathy Lawton RN Specialty Options Advisor Oncology 09/01/20 Karli Diaz, FIBERGLASS PRODUCT TESTER [address] [place] [address] Industrial Equipment Mechanic Hematology/Oncology 09/04/22 Renal Medicine Physician Relationship Specialty Start Date End Date Jane Baig, VARNISH FILTERER.GOLF BALL WINDER [address] [facility] [place] [address] PCP - General Family Medicine 11/20/21 Cathy Lawton RN Specialty Options Advisor Oncology 09/01/20 Karli Diaz, FIBERGLASS PRODUCT TESTER [address] [place] [address] Industrial Equipment Mechanic Hematology/Oncology 09/04/22 Renal Medicine Physician Relationship Specialty Start Date End Date Jane Baig, VARNISH FILTERER.GOLF BALL WINDER [address] [facility] [place] [address] PCP - General Family Medicine 11/20/21 Cathy Lawton RN Specialty Options Advisor Oncology 09/01/20 Karli Diaz, FIBERGLASS PRODUCT TESTER [address] [place] [address] Industrial Equipment Mechanic Hematology/Oncology 09/04/22 Renal Medicine Physician Relationship Specialty Start Date End Date Jane Baig, VARNISH FILTERER.GOLF BALL WINDER [address] [facility] [place] [address] PCP - General Family Medicine 11/20/21 Cathy Lawton RN Specialty Options Advisor Oncology 09/01/20 Karli Diaz, FIBERGLASS PRODUCT TESTER [address] [place] [address] Industrial Equipment Mechanic Hematology/Oncology 09/04/22 Renal Medicine Physician Relationship Specialty Start Date End Date Jane Baig, VARNISH FILTERER.GOLF BALL WINDER [address] [place] [address] PCP - General Family Medicine 11/20/21 Cathy Lawton RN Specialty Options Advisor Oncology 09/01/20 Karli Diaz, FIBERGLASS PRODUCT TESTER [address] [facility] [place] [address] Industrial Equipment Mechanic Hematology/Oncology 09/04/22 Renal Medicine Physician Relationship Specialty Start Date End Date Jane Baig, VARNISH FILTERER.GOLF BALL WINDER [address] [place] [address] PCP - General Family Medicine 11/20/21 Cathy Lawton RN Specialty Options Advisor Oncology 09/01/20 Karli Diaz, ABRAHAM [address] [facility] [place] [address] Industrial Equipment Mechanic Hematology/Oncology 09/04/22 Renal Medicine Physician Relationship Specialty Start Date End Date Jane Baig, VARNISH FILTERER.GOLF BALL WINDER [address] [place] [address] PCP - General Family Medicine 11/20/21 Cathy Lawton RN Specialty Options Advisor Oncology 09/01/20 Karli Diaz, FIBERGLASS PRODUCT TESTER [address] [place] [address] Industrial Equipment Mechanic Hematology/Oncology 09/04/22 Renal Medicine Physician Relationship Specialty Start Date End Date Jane Baig, VARNISH FILTERER.GOLF BALL WINDER [address] [place] [address] PCP - General Family Medicine 11/20/21 Cathy Lawton RN Specialty Options Advisor Oncology 09/01/20 Karli Diaz, FIBERGLASS PRODUCT TESTER [address] [place] [address] Industrial Equipment Mechanic Hematology/Oncology 09/04/22 Renal Medicine Physician Relationship Specialty Start Date End Date Jane Baig, VARNISH FILTERER.GOLF BALL WINDER [address] [place] [address] PCP - General Family Medicine 11/20/21 Cathy Lawton RN Specialty Options Advisor Oncology 09/01/20 Karli Diaz, FIBERGLASS PRODUCT TESTER [address] [facility] [place] [address] Industrial Equipment Mechanic Hematology/Oncology 09/04/22 Renal Medicine Physician Relationship Specialty Start Date End Date Jane Baig, VARNISH FILTERER.GOLF BALL WINDER [address] [place] [address] PCP - General Family Medicine 11/20/21 Cathy Lawton RN Specialty Options Advisor Oncology 09/01/20 Karli Diaz, ABRAHAM [address] [place] [address] Industrial Equipment Mechanic Hematology/Oncology 09/04/22 Renal Medicine Physician Relationship Specialty Start Date End Date Jane Baig, VARNISH FILTERER.GOLF BALL WINDER [address] [place] [address] PCP - General Family Medicine 11/20/21 Cathy Lawton RN Specialty Options Advisor Oncology 09/01/20 Karli Diaz, FIBERGLASS PRODUCT TESTER [address] [facility] [place] [address] Industrial Equipment Mechanic Hematology/Oncology 09/04/22 Renal Medicine Physician Relationship Specialty Start Date End Date Jane Baig, VARNISH FILTERER.GOLF BALL WINDER [address] [place] [address] PCP - General Family Medicine 11/20/21 Cathy Lawton RN Specialty Options Advisor Oncology 09/01/20 Karli Diaz, FIBERGLASS PRODUCT TESTER [address] [place] [address] Industrial Equipment Mechanic Hematology/Oncology 09/04/22 Renal Medicine Physician Relationship Specialty Start Date End Date Jane Baig, VARNISH FILTERER.GOLF BALL WINDER [address] [facility] [place] [address] PCP - General Family Medicine 11/20/21 Cathy Lawton RN Specialty Options Advisor Oncology 09/01/20 Karli Diaz, FIBERGLASS PRODUCT TESTER [address] [place] [address] Industrial Equipment Mechanic Hematology/Oncology 09/04/22 Renal Medicine Physician Relationship Specialty Start Date End Date Jane Baig, VARNISH FILTERER.GOLF BALL WINDER [address] [place] [address] PCP - General Family Medicine 11/20/21 Cathy Lawton RN Specialty Options Advisor Oncology 09/01/20 Karli Diaz, FIBERGLASS PRODUCT TESTER [address] [place] [address] Industrial Equipment Mechanic Hematology/Oncology 09/04/22 Renal Medicine Physician Relationship Specialty Start Date End Date Jane Baig, VARNISH FILTERER.GOLF BALL WINDER [address] [place] [address] PCP - General Family Medicine 11/20/21 Cathy Lawton RN Specialty Options Advisor Oncology 09/01/20 Karli Diaz, FIBERGLASS PRODUCT TESTER [address] [place] [address] Industrial Equipment Mechanic Hematology/Oncology 09/04/22 Renal Medicine Physician Relationship Specialty Start Date End Date Jane Baig, VARNISH FILTERER.GOLF BALL WINDER [address] [facility] [place] [address] PCP - General Family Medicine 11/20/21 Cathy Lawton RN Specialty Options Advisor Oncology 09/01/20 Karli Diaz, FIBERGLASS PRODUCT TESTER [address] [place] [address] Industrial Equipment Mechanic Hematology/Oncology 09/04/22 Renal Medicine Physician Relationship Specialty Start Date End Date Jovanni, Jane, VARNISH FILTERER.GOLF BALL WINDER [address] [place] [address] PCP - General Family Medicine 11/20/21 Cathy Lawton RN Specialty Options Advisor Oncology 09/01/20 Karli Diaz, FIBERGLASS PRODUCT TESTER [address] [place] [address] Industrial Equipment Mechanic Hematology/Oncology 09/04/22 Renal Medicine Physician Relationship Specialty Start Date End Date Jane Baig, VARNISH FILTERER.GOLF BALL WINDER [address] [place] [address] PCP - General Family Medicine 11/20/21 Cathy Lawton RN Specialty Options Advisor Oncology 09/01/20 Karli Diaz, FIBERGLASS PRODUCT TESTER [address] [facility] [place] [address] Industrial Equipment Mechanic Hematology/Oncology 09/04/22 Renal Medicine Physician Relationship Specialty Start Date End Date Jane Baig, VARNISH FILTERER.GOLF BALL WINDER [address] [place] [address] PCP - General Family Medicine 11/20/21 Cathy Lawton RN Specialty Options Advisor Oncology 09/01/20 Karli Diaz, FIBERGLASS PRODUCT TESTER [address] [place] [address] Industrial Equipment Mechanic Hematology/Oncology 09/04/22 Renal Medicine Physician Relationship Specialty Start Date End Date Jane Baig, VARNISH FILTERER.GOLF BALL WINDER [address] [place] [address] PCP - General Family Medicine 11/20/21 Cathy Lawton RN Specialty Options Advisor Oncology 09/01/20 Karli Diaz, FIBERGLASS PRODUCT TESTER [address] [place] [address] Industrial Equipment Mechanic Hematology/Oncology 09/04/22 Renal Medicine Physician Relationship Specialty Start Date End Date Jane Baig, VARNISH FILTERER.GOLF BALL WINDER [address] [place] [address] PCP - General Family Medicine 11/20/21 Cathy Lawton RN Specialty Options Advisor Oncology 09/01/20 Karli Diaz, FIBERGLASS PRODUCT TESTER [address] [facility] [place] [address] Industrial Equipment Mechanic Hematology/Oncology 09/04/22 Renal Medicine Physician Relationship Specialty Start Date End Date Jane Baig, VARNISH FILTERER.GOLF BALL WINDER [address] [place] [address] PCP - General Family Medicine 11/20/21 Cathy Lawton RN Specialty Options Advisor Oncology 09/01/20 Karli Diaz, FIBERGLASS PRODUCT TESTER [address] [place] [address] Industrial Equipment Mechanic Hematology/Oncology 09/04/22 Renal Medicine Physician Relationship Specialty Start Date End Date Jane Baig, VARNISH FILTERER.GOLF BALL WINDER [address] [facility] [place] [address] PCP - General Family Medicine 11/20/21 Cathy Lawton RN Specialty Options Advisor Oncology 09/01/20 Karli Diaz, FIBERGLASS PRODUCT TESTER [address] [place] [address] Industrial Equipment Mechanic Hematology/Oncology 09/04/22 Renal Medicine Physician Relationship Specialty Start Date End Date Jane Baig, VARNISH FILTERER.GOLF BALL WINDER [address] [facility] [place] [address] PCP - General Family Medicine 11/20/21 Cathy Lawton RN Specialty Options Advisor Oncology 09/01/20 Karli Diaz, FIBERGLASS PRODUCT TESTER [address] [place] [address] Industrial Equipment Mechanic Hematology/Oncology 09/04/22 Renal Medicine Physician Relationship Specialty Start Date End Date Jane Baig, VARNISH FILTERER.GOLF BALL WINDER [address] [facility] [place] [address] PCP - General Family Medicine 11/20/21 Cathy Lawton RN Specialty Options Advisor Oncology 09/01/20 Karli Diaz, FIBERGLASS PRODUCT TESTER [address] [place] [address] Industrial Equipment Mechanic Hematology/Oncology 09/04/22 Renal Medicine Physician Relationship Specialty Start Date End Date Jane Baig, VARNISH FILTERER.GOLF BALL WINDER [address] [facility] [place] [address] PCP - General Family Medicine 11/20/21 Cathy Lawton RN Specialty Options Advisor Oncology 09/01/20 Renal Medicine Physician Relationship Specialty Start Date End Date Jane Baig, VARNISH FILTERER.GOLF BALL WINDER [address] [facility] [place] [address] PCP - General Family Medicine 11/20/21 Cathy Lawton RN Specialty Options Advisor Oncology 09/01/20 Karli Diaz, ABRAHAM [address] [place] [address] Industrial Equipment Mechanic Hematology/Oncology 09/04/22 Renal Medicine Physician Relationship Specialty Start Date End Date Kervin Reid III, MD PCP - General Family Medicine 12/08/19 12/12/20 Renal Medicine Physician Relationship Specialty Start Date End Date Kervin Reid III, MD PCP - General Family Medicine 12/08/19 12/12/20 Renal Medicine Physician Relationship Specialty Start Date End Date Jane Baig, VARNISH FILTERER.GOLF BALL WINDER [address] [facility] [place] [address] PCP - General Family Medicine 11/20/21 Cathy Lawton RN Specialty Options Advisor Oncology 09/01/20 Karli Diaz, ABRAHAM [address] [place] [address] Industrial Equipment Mechanic Hematology/Oncology 09/04/22 Renal Medicine Physician Relationship Specialty Start Date End Date Jane Baig, VARNISH FILTERER.GOLF BALL WINDER [address] [facility] [place] [address] PCP - General Family Medicine 11/20/21 Cathy Lawton RN Specialty Options Advisor Oncology 09/01/20 Karli Diaz, FIBERGLASS PRODUCT TESTER [address] [place] [address] Industrial Equipment Mechanic Hematology/Oncology 09/04/22 Renal Medicine Physician Relationship Specialty Start Date End Date Jane Baig, VARNISH FILTERER.GOLF BALL WINDER [address] [facility] [place] [address] PCP - General Family Medicine 11/20/21 Cathy Lawton RN Specialty Options Advisor Oncology 09/01/20 Karli Diaz, FIBERGLASS PRODUCT TESTER [address] [place] [address] Industrial Equipment Mechanic Hematology/Oncology 09/04/22 Renal Medicine Physician Relationship Specialty Start Date End Date Jane Baig, VARNISH FILTERER.GOLF BALL WINDER [address] [place] [address] PCP - General Family Medicine 11/20/21 Cathy Lawton RN Specialty Options Advisor Oncology 09/01/20 Karli Diaz, FIBERGLASS PRODUCT TESTER [address] [place] [address] Industrial Equipment Mechanic Hematology/Oncology 09/04/22 Renal Medicine Physician Relationship Specialty Start Date End Date Jane Baig, VARNISH FILTERER.GOLF BALL WINDER [address] [place] [address] PCP - General Family Medicine 11/20/21 Cathy Lawton RN Specialty Options Advisor Oncology 09/01/20 Karli Diaz, FIBERGLASS PRODUCT TESTER [address] [place] [address] Industrial Equipment Mechanic Hematology/Oncology 09/04/22 Renal Medicine Physician Relationship Specialty Start Date End Date Jane Baig, VARNISH FILTERER.GOLF BALL WINDER [address] [facility] [place] [address] PCP - General Family Medicine 11/20/21 Cathy Lawton RN Specialty Options Advisor Oncology 09/01/20 Karli Diaz, FIBERGLASS PRODUCT TESTER [address] [place] [address] Industrial Equipment Mechanic Hematology/Oncology 09/04/22 Michelle Hermosillo, VARNISH FILTERER.GOLF BALL WINDER [address] [facility] [place] [address] Bridge Crew Member Family Medicine 02/02/24 Zack Wooten MD [address] [facility] [place] [address] [facility] Family Medicine 02/02/24 Renal Medicine Physician Relationship Specialty Start Date End Date Jane Baig, VARNISH FILTERER.GOLF BALL WINDER [address] [facility] [place] [address] PCP - General Family Medicine 11/20/21 Cathy Lawton RN Specialty Options Advisor Oncology 09/01/20 Karli Diaz LISW [address] [place] [address] Industrial Equipment Mechanic Hematology/Oncology 09/04/22 Michelle Hermosillo, VARNISH FILTERER.GOLF BALL WINDER [address] [facility] [place] [address] [facility] Family Medicine 02/02/24 Zack Wooten MD [address] [facility] [place] [address] [facility] Family Medicine 02/02/24 Renal Medicine Physician Relationship Specialty Start Date End Date Jane Baig, VARNISH FILTERER.GOLF BALL WINDER [address] [facility] [place] [address] PCP - General Family Medicine 11/20/21 Cathy Lawton, RN Specialty Options Advisor Oncology 09/01/20 Karli Diaz, FIBERGLASS PRODUCT TESTER [address] [place] [address] Industrial Equipment Mechanic Hematology/Oncology 09/04/22 Michelle Hermosillo, VARNISH FILTERER.GOLF BALL WINDER [address] [facility] [place] [address] Bridge Crew Member Family Medicine 02/02/24 Zack Wooten MD [address] [facility] [place] [address] [facility] 02/02/24 Renal Medicine Physician Relationship Specialty Start Date End Date Jane Baig, VARNISH FILTERER.GOLF BALL WINDER [address] [facility] [place] [address] PCP - General Family Medicine 11/20/21 Cathy Lawton RN Specialty Options Advisor Oncology 09/01/20 Karli Diaz LISW [address] [place] [address] Industrial Equipment Mechanic Hematology/Oncology 09/04/22 Michelle Hermosillo VARNISH FILTERER.GOLF BALL WINDER [address] [facility] [address] [facility] 02/02/24 Zack Wooten MD [address] [facility] [address] [facility] 02/02/24 Renal Medicine Physician Relationship Specialty Start Date End Date Jane Baig, VARNISH FILTERER.GOLF BALL WINDER [address] [place] [address] PCP - General Family Medicine 11/20/21 Cathy Lawton RN Specialty Options Advisor Oncology 09/01/20 Karli Diaz LISW [address] [facility] [place] [address] Industrial Equipment Mechanic Hematology/Oncology 09/04/22 Michelle Hermosillo VARNISH FILTERER.GOLF BALL WINDER [address] [facility] [address] Bridge Crew Member Family Medicine 02/02/24 Zack Wooten MD [address] [facility] [place] [address] Bridge Crew Member Family Medicine 02/02/24 Renal Medicine Physician Relationship Specialty Start Date End Date Jane Baig, VARNISH FILTERER.GOLF BALL WINDER [address] [facility] [place] [address] PCP - General Family Medicine 11/20/21 Cathy Lawton RN Specialty Options Advisor Oncology 09/01/20 Karli Diaz, FIBERGLASS PRODUCT TESTER [address] [place] [address] Industrial Equipment Mechanic Hematology/Oncology 09/04/22 Michelle Hermosillo, VARNISH FILTERER.GOLF BALL WINDER [address] [facility] [place] [address] Bridge Crew Member Family Medicine 02/02/24 Zack Wooten MD [address] [facility] [address] Bridge Crew Member Family Medicine 02/02/24 Renal Medicine Physician Relationship Specialty Start Date End Date Jane Baig, VARNISH FILTERER.GOLF BALL WINDER [address] [place] [address] PCP - General Family Medicine 11/20/21 Cathy Lawton RN Specialty Options Advisor Oncology 09/01/20 Karli Diaz, FIBERGLASS PRODUCT TESTER [address] [place] [address] Industrial Equipment Mechanic Hematology/Oncology 09/04/22 Michelle Hermosillo, VARNISH FILTERER.GOLF BALL WINDER [address] [facility] [place] [address] Bridge Crew Member Family Medicine 02/02/24 Zack Wooten MD [address] [facility] [address] Bridge Crew Member Family Medicine 02/02/24 Renal Medicine Physician Relationship Specialty Start Date End Date Jane Baig, VARNISH FILTERER.GOLF BALL WINDER [address] [facility] [place] [address] PCP - General Family Medicine 11/20/21 Cathy Lawton RN Specialty Options Advisor Oncology 09/01/20 Karli Diaz, FIBERGLASS PRODUCT TESTER [address] [place] [address] Industrial Equipment Mechanic Hematology/Oncology 09/04/22 Michelle Hermosillo, VARNISH FILTERER.GOLF BALL WINDER [address] [facility] [place] [address] Bridge Crew Member Family Medicine 02/02/24 Zack Wooten MD [address] [facility] [place] [address] Bridge Crew Member Family Medicine 02/02/24 Renal Medicine Physician Relationship Specialty Start Date End Date Jane Baig, VARNISH FILTERER.GOLF BALL WINDER [address] [facility] [place] [address] PCP - General Family Medicine 11/20/21 Cathy Lawton RN Specialty Options Advisor Oncology 09/01/20 Karli Diaz, FIBERGLASS PRODUCT TESTER [address] [place] [address] Industrial Equipment Mechanic Hematology/Oncology 09/04/22 Michelle Hermosillo, VARNISH FILTERER.GOLF BALL WINDER [address] [facility] [address] Bridge Crew Member Family Medicine 02/02/24 Zack Wooten MD [address] [facility] [address] Bridge Crew Member Family Medicine 02/02/24 Renal Medicine Physician Relationship Specialty Start Date End Date Jane Baig, VARNISH FILTERER.GOLF BALL WINDER [address] [place] [address] PCP - General Family Medicine 11/20/21 Cathy Lawton RN Specialty Options Advisor Oncology 09/01/20 Karli Diaz LISW [address] [place] [address] Industrial Equipment Mechanic Hematology/Oncology 09/04/22 Michelle Hermosillo, VARNISH FILTERER.GOLF BALL WINDER [address] [place] [address] Bridge Crew Member Family Medicine 02/02/24 Zack Wooten MD [address] [place] [address] Bridge Crew Member Family Medicine 02/02/24 Renal Medicine Physician Relationship Specialty Start Date End Date Jane Baig, VARNISH FILTERER.GOLF BALL WINDER [address] [facility] [place] [address] PCP - General Family Medicine 11/20/21 Cathy Lawton RN Specialty Options Advisor Oncology 09/01/20 Karli Diaz LISW [address] [place] [address] Industrial Equipment Mechanic Hematology/Oncology 09/04/22 Michelle Hermosillo, VARNISH FILTERER.GOLF BALL WINDER [address] [place] [address] Bridge Crew Member Family Medicine 02/02/24 Zack Wooten MD [address] [place] [address] Bridge Crew Member Family Medicine 02/02/24 Renal Medicine Physician Relationship Specialty Start Date End Date Jane Baig, VARNISH FILTERER.GOLF BALL WINDER [address] [facility] [place] [address] PCP - General Family Medicine 11/20/21 Cathy Lawton RN Specialty Options Advisor Oncology 09/01/20 Karli Diaz FIBERGLASS PRODUCT TESTER [address] [place] [address] Industrial Equipment Mechanic Hematology/Oncology 09/04/22 Renal Medicine Physician Relationship Specialty Start Date End Date Jane Baig, VARNISH FILTERER.GOLF BALL WINDER [address] [place] [address] PCP - General Family Medicine 11/20/21 Cathy Lawton, RN Specialty Options Advisor Oncology 09/01/20 Karli Diaz, FIBERGLASS PRODUCT TESTER [address] [place] [address] Industrial Equipment Mechanic Hematology/Oncology 09/04/22 Renal Medicine Physician Relationship Specialty Start Date End Date Jane Baig, VARNISH FILTERER.GOLF BALL WINDER [address] [place] [address] PCP - General Family Medicine 11/20/21 Cathy Lawton, RN Specialty Options Advisor Oncology 09/01/20 Karli Diaz, FIBERGLASS PRODUCT TESTER [address] [facility] [place] [address] Industrial Equipment Mechanic Hematology/Oncology 09/04/22 Renal Medicine Physician Relationship Specialty Start Date End Date Jane Baig, VARNISH FILTERER.GOLF BALL WINDER [address] [place] [address] PCP - General Family Medicine 11/20/21 Cathy Lawton RN Specialty Options Advisor Oncology 09/01/20 Karli Diaz, FIBERGLASS PRODUCT TESTER [address] [facility] [place] [address] Industrial Equipment Mechanic Hematology/Oncology 09/04/22 Michelle Hermosillo, VARNISH FILTERER.GOLF BALL WINDER [address] [facility] [address] Bridge Crew Member Family Medicine 02/02/24 05/18/24 Zack Wooten MD [address] [facility] [address] Bridge Crew Member Family Medicine 02/02/24 05/18/24 Renal Medicine Physician Relationship Specialty Start Date End Date Jane Baig, VARNISH FILTERER.GOLF BALL WINDER [address] [facility] [place] [address] PCP - General Family Medicine 11/20/21 Cathy Lawton RN Specialty Options Advisor Oncology 09/01/20 Karli Diaz LISW [address] [place] [address] Industrial Equipment Mechanic Hematology/Oncology 09/04/22 Team Status: Active Member Role Status Dates Jane Baig PROCESS PROJECT ENGINEER, PROCESS PROJECT ENGINEER-C Primary Care Provider Active Team Status: Inactive Member Role Status Dates Jane Baig PROCESS PROJECT ENGINEER, PROCESS PROJECT ENGINEER-C Primary Care Provider Active Start: July 28, 2024 End: July 28, 2024 LESLIE Oliver Attending Provider Active Start: July 28, 2024 End: July 28, 2024 LESLIE Oliver Referring Provider Active Start: July 28, 2024 End: July 28, 2024 Renal Medicine Physician Relationship Specialty Start Date End Date Jane Baig, VARNISH FILTERER.GOLF BALL WINDER [address] [place] [address] PCP - General Family Medicine 11/20/21 Cathy Lawton RN Specialty Options Advisor Oncology 09/01/20 Karli Diaz LISW [address] [place] [address] Industrial Equipment Mechanic Hematology/Oncology 09/04/22 Kody Reid [address] [facility] [address] [place] [phone] Orthopedics 08/07/24 Renal Medicine Physician Relationship Specialty Start Date End Date Jane Baig, VARNISH FILTERER.GOLF BALL WINDER [address] [facility] [place] [address] PCP - General Family Medicine 11/20/21 Cathy Lawton RN Specialty Options Advisor Oncology 09/01/20 Karli Diaz LISW [address] [place] [address] Industrial Equipment Mechanic Hematology/Oncology 09/04/22 Renal Medicine Physician Relationship Specialty Start Date End Date Jane Baig, VARNISH FILTERER.GOLF BALL WINDER [address] [facility] [place] [address] PCP - General Family Medicine 11/20/21 Cathy Lawton, RN Specialty Options Advisor Oncology 09/01/20 Karli Diaz LISW [address] [facility] [place] [address] Industrial Equipment Mechanic Hematology/Oncology 09/04/22 Kody Reid [address] [facility] [address] [place] [address] Orthopedics 08/07/24 Renal Medicine Physician Relationship Specialty Start Date End Date Jane Baig, VARNISH FILTERER.GOLF BALL WINDER [address] [facility] [place] [address] PCP - General Family Medicine 11/20/21 Cathy Lawton, RN Specialty Options Advisor Oncology 09/01/20 Karli Diaz LISW [address] [facility] [address] Industrial Equipment Mechanic Hematology/Oncology 09/04/22 Kody Reid [address] [facility] [address] [place] [address] Orthopedics 08/07/24 Renal Medicine Physician Relationship Specialty Start Date End Date Jane Baig, VARNISH FILTERER.GOLF BALL WINDER [address] [facility] [place] [address] PCP - General Family Medicine 11/20/21 Cathy Lawton, RN Specialty Options Advisor Oncology 09/01/20 Karli Diaz LISW [address] [facility] [place] [address] Industrial Equipment Mechanic Hematology/Oncology 09/04/22 Kody Reid [address] [facility] [address] [place] [address] Orthopedics 08/07/24 Renal Medicine Physician Relationship Specialty Start Date End Date Jane Baig, VARNISH FILTERER.GOLF BALL WINDER [address] [place] [address] PCP - General Family Medicine 11/20/21 Cathy Lawton RN Specialty Options Advisor Oncology 09/01/20 Karli Diaz LISW [address] [place] [address] Industrial Equipment Mechanic Hematology/Oncology 09/04/22 Kody Reid [address] [place] [address] Orthopedics 08/07/24 Renal Medicine Physician Relationship Specialty Start Date End Date Jane Baig, VARNISH FILTERER.GOLF BALL WINDER [address] [place] [address] PCP - General Family Medicine 11/20/21 Cathy Lawton RN Specialty Options Advisor Oncology 09/01/20 Karli Diaz LISW [address] [place] [address] Industrial Equipment Mechanic Hematology/Oncology 09/04/22 Kody Reid [address] [place] [phone] Orthopedics 08/07/24 Renal Medicine Physician Relationship Specialty Start Date End Date Jane Baig, VARNISH FILTERER.GOLF BALL WINDER [address] [place] [address] PCP - General Family Medicine 11/20/21 Cathy Lawton RN Specialty Options Advisor Oncology 09/01/20 Karli Diaz, ABRAHAM [address] [place] [address] Industrial Equipment Mechanic Hematology/Oncology 09/04/22 Kody Reid [address] [place] [address] Orthopedics 08/07/24 Renal Medicine Physician Relationship Specialty Start Date End Date Jane Baig, VARNISH FILTERER.GOLF BALL WINDER [address] [place] [address] PCP - General Family Medicine 11/20/21 Cathy Lawton, RN Specialty Options Advisor Oncology 09/01/20 Karli Diaz LISW [address] [place] [address] Industrial Equipment Mechanic Hematology/Oncology 09/04/22 Kody Reid [address] [place] [address] Orthopedics 08/07/24 Renal Medicine Physician Relationship Specialty Start Date End Date Jane Baig, VARNISH FILTERER.GOLF BALL WINDER [address] [place] [address] PCP - General Family Medicine 11/20/21 Cathy Lawton RN Specialty Options Advisor Oncology 09/01/20 Karli Diaz LISW [address] [place] [address] Industrial Equipment Mechanic Hematology/Oncology 09/04/22 Kody Reid [address] [place] [address] Orthopedics 08/07/24 Renal Medicine Physician Relationship Specialty Start Date End Date Jane Baig, VARNISH FILTERER.GOLF BALL WINDER [address] [place] [address] PCP - General Family Medicine 11/20/21 Cathy Lawton RN Specialty Options Advisor Oncology 09/01/20 Karli Diaz LISW [address] [facility] [place] [address] Industrial Equipment Mechanic Hematology/Oncology 09/04/22 Kody Reid [address] [facility] [address] [place] [phone] Orthopedics 08/07/24 Renal Medicine Physician Relationship Specialty Start Date End Date Jane Baig APRN.CNP [address] [place] [address] PCP - General Family Medicine 11/20/21 Cathy Lawton RN Specialty Options Advisor Oncology 09/01/20 Karli Diaz LISW [address] [place] [address] Industrial Equipment Mechanic Hematology/Oncology 09/04/22 Kody Reid [address] [facility] [address] [place] [phone] Orthopedics 08/07/24 Goals (unrecognized section and content) Goals may be documented in a n alternate sectionGoals may be documented in an alternate sectionGoals may be documented in an alternate sectionGoals may be documented in an alternate sectionGoals may be documented in an alternate sectionGoals may be documented in an alternate sectionGoals may be documented in an alternate section INFORMATION SOURCE (unrecogn ized section and content) DATE CREATED AUTHOR 06/06/2022 Bartolome Mayes [facility] DATE CREATED AUTHOR AUTHOR'S ORGANIZ ATION 08/02/2024 [facility] DATE CREATED AUTHOR AUTHOR'S ORGANIZ ATION 12/24/2024 [facility] FOR RECORDS PERTAINING TO PATIENTS WHO ARE OR HAVE BEEN ENROLLED IN A CHEMICAL DEPENDENCY/SUBSTANCEABUSE PROGRAM, SOME INFORMATION MAY BE OMITTED. This clinical summary was aggregated from multiple sources. Caution should be exercised in using it in the provision of clinical care. This summary normalizes information from multiple sources, and as a consequence, information in this document may materially change the coding, format and clinical context of patient data. In addition, data may be omitted in some cases. CLINICAL DECISIONS SHOULD BE BASED ON THE PRIMARY CLINICAL RECORDS. [facility] [employer] [facility]. provides no warranty or guarantee of the accuracy or completeness of information in this document.
[2025-02-21 14:25] LABS: Prothrombin Time (Protime)PT. 13.0 SECONDS (11.7-14.9)
[2025-02-21 14:26] LABS: Partial Thromboplast Time 35.6 Seconds (24.1-36.2)
--- NOTE | 2025-02-21 14:30 | RAD_ITS ---
PROCEDURE: CHEST PA AND LATERAL 02/21/2025 REASON FOR EXAM: COUGH TECHNIQUE: Procedure Code: RADCXR Modality: DX Procedure: CHEST PA AND LATERAL COMPARISON: Chest x-ray dated 07/09/2023 FINDINGS: Hardware: None Heart: The heart size is normal. Mediastinum: The mediastinal contour is unremarkable. Lungs: The lungs are clear. Bones: The bones are unremarkable. RAD/Chest PA and Lateral IMPRESSION: NO ACUTE FINDINGS. Reading Location: [facility]
[2025-02-21 14:56] LABS: AST(SGOT) 18 U/L (<=31); Alanine Aminotransfer ALT/SGPT 9 U/L (<=34); Albumin, Serum 4.3 g/dL (3.4-4.8); Alkaline Phosphatase 98 U/L (35-104); Anion Gap 11 (7-18); BUN 12 mg/dL (4-19); BUN/Creat Ratio 11.4 RATIO (10-20); Calcium,Total 9.5 mg/dL (7.6-11.0); Carbon Dioxide 25.2 mmol/L (20.0-29.0); Chloride 103 mmol/L (96-106); Estimated Creatinine Clearance 39.32 ml/min (50-250); Globulin 2.8 g/dL (2.2-4.2); Glucose 105 mg/dL (70-99); Potassium 3.9 mmol/L (3.5-5.1); Pro- Brain NATRIURETIC PEPTIDE 594 pg/mL (<=1800)
[2025-02-21] MEDS: 0.9% Normal Saline (1000mL) 1,000 ML 999 ML IV (15:00)
[2025-02-21 16:25] LABS: Mucous, Urine 0 SEEN /hpf (<or=2+)
[2025-02-21 16:30] LABS: Color, Urine Yellow (Yellow); Glucose, Dipstick Normal (Normal); Ketone-Dipstick Negative (Negative); Leukocyte Esterase-Dipstick 500 /ul (Negative); Nitrite-Dipstick Negative (Negative); Occult Blood-Urine 25 /ul (Negative); Protein-Dipstick Negative (Negative); Specific Gravity, Urine 1.010 (1.002-1.030); Urine Bilirubin Dipstick Negative (Negative)
[2025-02-21 16:44] LABS: Squamous Epithelial Cells - UA 0-5 SEEN /hpf (5-10)
[2025-02-21 16:46] LABS: Red Blood Cells-Urine 5-10 SEEN /hpf (0-5)
== END 2025-02-21 16:42 | disposition home or self-care (01) ==
PROVIDERS: Emergency Provider Emergency Medicine; PCP Registered Nurse; Visit Provider Emergency Medicine
DX: U07.1 COVID-19 (principal); C91.10 Chronic lymphocytic leukemia of B-cell type not having achieved remission; N18.30 Chronic kidney disease, stage 3 unspecified; I12.9 Hypertensive chronic kidney disease with stage 1 through stage 4 chronic kidney disease, or unspecified chronic kidney disease; Z79.899 Other long term (current) drug therapy; Z87.891 Personal history of nicotine dependence
CPT/HCPCS: 71046; 80053; 81001; 83605; 83880; 85025; 85610; 85730; 87040; 87077; 87086; 87088; 87186; 87631; 93005; 96360; 99285; A4216